=== PATIENT | female | born 1960 | race Caucasian/White ===

== ENCOUNTER 2023-01-24 14:37 | Emergency (ER) | payer MEDICARE, MEDICAID, SELFPAY ==
[2023-01-24 14:37] VITALS: BP 121/74; PULSE 91; RESP 16; TEMP 36.3; O2SAT 97; BMI 31.4
--- NOTE | 2023-01-24 15:07 | EX.ED.DYSGE1 ---
HPI <NICK Gilliam - Last Filed: 01/24/23 15:20> History of Present Illness Chief Complaint: Other, Pain/Inj Narrative Narrative: Patient presenting today due to rectal pain from an anal fissure that she was diagnosed with yesterday by her sewing machinist, Dr. Patel. She was prescribed a nitroglycerin cream and was told to perform daily sitz bath's. However, her pharmacy is out of this cream and she is having a hard time finding it. She reports that the pain is not being managed well with just the sitz bath's. She does report a history of constipation. PFSH <NICK Gilliam - Last Filed: 01/24/23 15:20> [facility] Medical History (Updated 01/24/23 @ 15:09 by Charlotte Campos) Anal fissure Home Medications lidocaine 5 % topical cream (RectiCare) 1 applic topical TID PRN pain #15 grams 01/24/23 [Rx Last Taken Unknown] Allergy/AdvReac Type Severity Reaction Status Date / Time hydrocodone Allergy RASH Verified 01/24/23 14:41 Sulfa (Sulfonamide Allergy UNSURE Verified 01/24/23 14:41 Antibiotics) naproxen AdvReac Nausea Verified 01/24/23 14:41 trazodone AdvReac PT UNSURE Verified 01/24/23 14:41 OF REACTION TRAMADOL AdvReac Nausea Uncoded 01/24/23 14:41 Social History Smoking Status: Current every day smoker tobacco type: cigarettes ROS <NICK Gilliam - Last Filed: 01/24/23 15:20> ROS ED Constitutional Constitutional ED: Denies chills or fever(s) Cardiovascular Cardiovascular: Denies chest pain Respiratory/Chest Respiratory/Chest: Denies cough or dyspnea Gastrointestinal Gastrointestinal: Denies abdominal pain, nausea or vomiting Musculoskeletal Musculoskeletal: Denies arthralgias or myalgias Neurologic Neurologic: Denies weakness Psychiatric Psychiatric: Denies anxiety, depression, suicidal ideation or suicidal thoughts EXAM <NICK Gilliam - Last Filed: 01/24/23 15:20> Physical Exam Const Vital Signs: 01/24/23 14:37 01/24/23 15:09 Temperature 97.4 F L Temperature Source Temporal Pulse Rate 91 Respiratory Rate 16 Respiratory Effort Normal Respiratory Pattern Normal Blood Pressure 121/74 H Blood Pressure Mean 89 Pulse Ox 97 Oxygen Delivery Method Room Air Positive well nourished, well developed and no apparent distress General Appearance ED: well developed HEENT Reports normocephalic and head/scalp atraumatic Mouth ED: Yes moist mucous membranes normal Eyes PERRL and EOMs intact bilaterally Neck full ROM and supple Chest Wall inspection of chest normal Resp normal respiratory effort and clear to auscultation bilaterally Cardio regular rate and regular rhythm GI soft to palpation, non-tender, non-distended and no masses GI Narrative: Rectal examination performed, normal sphincter tone, small non-thrombosed external hemorrhoid. No sign of perirectal abscess. Back/Spine normal ROM and normal to inspection Extremity normal to inspection and full ROM Neuro oriented x3, CN's II-XII intact bilaterally, moves all extremities, no focal motor deficits and no sensory deficits noted Sensorium / Orientation: awake and alert Psych mental status grossly normal and thought process normal Skin no rashes or lesions noted and no wounds <Glenroy Dumas MD - Last Filed: 01/24/23 18:20> Physical Exam Const Vital Signs: 01/24/23 14:37 01/24/23 15:09 Temperature 97.4 F L Temperature Source Temporal Pulse Rate 91 Respiratory Rate 16 Respiratory Effort Normal Respiratory Pattern Normal Blood Pressure 121/74 H Blood Pressure Mean 89 Pulse Ox 97 Oxygen Delivery Method Room Air [facility] <NICK Gilliam - Last Filed: 01/24/23 15:20> [facility] Narrative Medical decision making narrative: Patient presenting with a anal fissure that was diagnosed yesterday by her GI doctor, Dr. Patel. She reports that she has been unable to obtain the nitroglycerin cream that she was prescribed and is having a lot of pain. I did perform a rectal exam, but I did not see the anal fissure, I also did not see any evidence of perirectal abscess. She does have 1 small non-thrombosed hemorrhoid but this is not the source of her pain. I will give her a prescription for recticare. Encouraged her to continue using sitz bath's and to add more fiber to her diet. She is to follow-up with her GI doctor and will be discharged home in stable condition. She is comfortable with plan. <Glenroy Dumas MD - Last Filed: 01/24/23 18:20> [facility] Narrative Medical decision making narrative: Patient presenting with a anal fissure that was diagnosed yesterday by her GI doctor, Dr. Patel. She reports that she has been unable to obtain the nitroglycerin cream that she was prescribed and is having a lot of pain. I did perform a rectal exam, but I did not see the anal fissure, I also did not see any evidence of perirectal abscess. She does have 1 small non-thrombosed hemorrhoid but this is not the source of her pain. I will give her a prescription for recticare. Encouraged her to continue using sitz bath's and to add more fiber to her diet. She is to follow-up with her GI doctor and will be discharged home in stable condition. She is comfortable with plan. Dr. Dumas: I have personally performed a face to face assessment of the patient and have reviewed the AMILCAR Note. I performed a substantive portion of the visit including all aspects of the following. My douglas findings include: History is anal fissure pain. 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 Patel, had written for compound pharmaceutical to be placed rectally to help heal fissure and control pain. Unavailable at outpatient pharmacy. Patient complains of rectal pain. Exam is afebrile. Vital signs noted. Regular rate and rhythm. Lungs clear to auscultation bilaterally. Abdomen soft and nontender. Medical Decision Making: Lidocaine 4%/RectiCare. Follow-up gastroenterology. I do not feel that laboratory work is indicated, nor do I feel that imaging is indicated, and she does not require observation at this time. Other additions or changes: [None] Differential Diagnosis Differential Diagnosis: Not applicable Discharge Plan Triage Chief Complaint: Other, Pain/Inj ED Midlevel Provider: Hoa Guillen ED Provider: Glenroy Dumas Dx/Rx/DC Orders Clinical Impression: Rectal fissure Instructions: ED Understanding Anal Fissures Prescriptions: New lidocaine [RectiCare] 5 % cream 1 applic topical TID PRN (Reason: pain) Qty: 15 0RF Primary Care Provider: Care Physician,No Primary Referrals: Town Doctor,Out of [Non-Staff] - Activity Restrictions/Additional Instructions: Continue to take sitz bath's twice a day, follow-up with your GI doctor. Disposition Disposition: Home, Self Care Discharge Date/Time: 01/24/23 16:35
== END 2023-01-24 16:35 | disposition home or self-care (01) ==
LOC: ED 15:27
PROVIDERS: Emergency Provider Emergency Medicine; Visit Provider Emergency Medicine
DX: K60.2 Anal fissure, unspecified (principal); F17.210 Nicotine dependence, cigarettes, uncomplicated
CPT/HCPCS: 99282

== ENCOUNTER → 2024-04-20 | Outpatient (CLI) | payer MEDICARE, MEDICAID, SELFPAY ==
[2024-04-20 15:15] LABS: Absolute Lymphocyte Count 1.62 X10^3/uL (0.83-4.51); Absolute Neutrophil Count 15.8 X10^3/uL (2.0-7.7); Basophil# 0.04 X10^3/uL; Basophil% 0.2 % (0-1); Hematocrit 44.1 % (37-47); Hemoglobin 14.3 g/dL (12.0-15.0); Lymphocyte # 1.62 X10^3/ul (0.83-4.51); Lymphocyte % 8.8 % (19-41); Mean Corp Hgb Conc 32.4 g/dL (32-36); Mean Corpuscular Hgb 28.2 pg (27.0-32.0); Mean Platelet Vol. 10.4 fl (6.2-12.0); Monocyte# 0.76 X10^3/uL; Monocyte% 4.1 % (0-10); NRBC Flagged by Analyzer 0 % (0-5); Neutrophil # 15.84 X10^3/uL (2.7-7.7); Platelet Count 348 K/mm3 (150-450); RBC Distribution Width CV 14.1 % (11.6-14.6); RBC Distribution Width SD 44.7 fl (35.1-43.9); Red Blood Count 5.07 M/mm3 (4.2-5.4); White Blood Count 18.4 K/mm3 (4.4-11.0)
[2024-04-20 15:29] LABS: Vitamin D,25 Hydroxy 32.2 ng/mL
[2024-04-20 15:32] LABS: ALB/GLOB Ratio 1.1 RATIO (0.9-2.4); AST(SGOT) 18 U/L (15-37); Alanine Aminotransfer ALT/SGPT 37 U/L (13-56); Albumin, Serum 4.2 g/dL (3.2-5.0); Alkaline Phosphatase 66 U/L (45-117); Anion Gap 4 (5-15); BUN 28 mg/dL (7-18); BUN/Creat Ratio 27.7 RATIO (10-20); Calcium,Total 10.4 mg/dL (8.5-10.1); Chloride 104 mmol/L (98-107); Creatinine, Serum 1.01 mg/dL (0.55-1.02); EST Glomerular Filtration Rate 58 mL/min (>60); Est Glom Filt Rate - Afr Amer 71 mL/min (>60); Globulin 3.8 g/dL (2.2-4.2); Glucose 107 mg/dL (74-106); Potassium 4.4 mmol/L (3.5-5.1); Sodium Level 138 mmol/L (136-145)
== END | disposition home or self-care (01) ==
PROVIDERS: PCP Family Medicine; Referring Provider Family Medicine; Visit Provider Family Medicine
DX: K60.2 Anal fissure, unspecified (principal); E11.9 Type 2 diabetes mellitus without complications; M81.0 Age-related osteoporosis without current pathological fracture
CPT/HCPCS: 36415; 80053; 82306; 85025

== ENCOUNTER → 2024-04-27 | Outpatient (CLI) | payer MEDICARE, MEDICAID, SELFPAY ==
[2024-04-27 12:20] LABS: Absolute Lymphocyte Count 4.59 X10^3/uL (0.83-4.51); Basophil# 0.05 X10^3/uL; Basophil% 0.4 % (0-1); Eosinophil# 0.35 X10^3/uL; Eosinophils% 2.7 % (0-5); Hemoglobin 13.7 g/dL (12.0-15.0); Lymphocyte # 4.59 X10^3/ul (0.83-4.51); Lymphocyte % 35.4 % (19-41); Mean Corp Hgb Conc 32.6 g/dL (32-36); Mean Corpuscular Volume 85.9 fL (81-99); Mean Platelet Vol. 9.7 fl (6.2-12.0); Monocyte# 0.88 X10^3/uL; Monocyte% 6.8 % (0-10); NRBC Flagged by Analyzer 0 % (0-5); Neutrophil # 7.03 X10^3/uL (2.7-7.7); Neutrophil % 54.2 % (47-70); Platelet Count 325 K/mm3 (150-450); RBC Distribution Width CV 13.4 % (11.6-14.6); RBC Distribution Width SD 42.1 fl (35.1-43.9); Red Blood Count 4.89 M/mm3 (4.2-5.4)
== END | disposition home or self-care (01) ==
PROVIDERS: PCP Family Medicine; Referring Provider Family Medicine; Visit Provider Family Medicine
DX: D72.829 Elevated white blood cell count, unspecified (principal)
CPT/HCPCS: 36415; 85025

== ENCOUNTER 2024-08-25 13:30 | Outpatient (RCR) | payer MEDICARE, MEDICAID, SELFPAY ==
--- NOTE | 2024-07-15 17:01 | HP.PTEVAL ---
Patient's Visit Information Visit Information Visit Information: AURELIO MICHELLE is a 64 year old F referred to Physical Therapy by Dr. Chemo Varma DO with a diagnosis of UNILATERAL PRIMARY OSTEOARTHRITIS ,RIGHT KNEE. Date of Evaluation: 07/15/24 Physical Therapist: George Colunga, PT, Cert MDT, OCS Visit Plan Frequency: 2x /Week Duration: 6 Weeks Plan: CANDIDATE FOR TKA RIGHT KNEE PT INTERVENTIONS ROM/FLEXABILITY ,STRENGTHENING QUADS/HAMS/HIP ,FUNCTIONAL STRENGTHENING AND NUSTEP Subjective Subjective: This 64 y/o female presents to physical therapy with right knee pain due to OA . Patient has had left knee pain many years . Patient seen DR Varma recommended PT and and recommend and viscosupplementation injections. Patient has x-rays showed Severe degenerative changes Tricompartmental narrowing . Patient has had cortisone injection at [facility] . Patient DR recommend TKA . Patient pain located global knee . Patient symptoms described as sore sharp pain. Pain can affects sleeping. Patient aggravating stairs ,extended walking and unable to squat and kneel. Alleviating factors nothing . Patient c/o paresthesia in knee. Patient condition affects QOL and function/gait. Patient goals to decrease pain VOCATION: retired SOCIAL: seperated Pain Left Knee: Pain Intensity (Out of 10): 7 Pain Intensity Range: 10 Comment: rest ,increases to 10/10 with walking Objective Objective: POSTURE: mild forward posture GAIT : reciprocal pattern antalgic gait Right side PALAPTION: tender medial /lateral joint line AROM: supine knee flexion 0-125 degrees supine FLEXIBILITY: hamstrings min tight MMT: ( peak force) right quads 18.8 ,hamstrings 14.2 ,hip flexion 23.1 ,hip abduction 16.8 ,ankle STAIRS: one step at a time Balance/Special Test Scores Lower Extremity Functional Score: 26 Goals Goal 1:: Patient to be I with HEP Goal Time Frame: 4-6 Weeks Goal 2:: Patient to improve peak force quads/hams/hip by 5-10# to improve gait Goal Time Frame: 4-6 Weeks Goal 3:: Patient to improve AROM supine knee flexion by 5 -10 degrees to improve stairs Goal Time Frame: 4-6 Weeks Goal 4:: Patient to demonstrate 50% improvement with less pain and improve function Goal Time Frame: 4-6 Weeks Goal 5:: Patient to improve LFES score by 5 points to improve QOL and function Goal Time Frame: 4-6 Weeks Rehabilitation Potential Physical Therapy Diagnosis: This patient has has severe DJD with pain ,decrease ROM ,weakness impairs gait and stairs this benefit from skilled PT Rehabilitation Potential: Good Anticipated Interventions Patient/Client Instruction: Educate patient on: Condition and Plan of Care For the Purpose of:: To decrease pain, To increase ROM, To improve muscle performance and motor function, To improve ability to perform ADL's, To increase tolerance to activity/condition/position, To improve ability of physical actions for home/community/work/leisure, To improve health of tissue, To decrease soft tissue restriction, To increase flexibility/ROM and To reduce risk of recurrence Therapeutic Exercise to Include: Strength training, Flexibilty training, Passive ROM and Active ROM Comment: QUADS/HAMS/HIP For the Purpose of:: To decrease pain, To increase ROM, To improve muscle performance and motor function, To improve ability to perform ADL's, To increase tolerance to activity/condition/position, To improve ability of physical actions for home/community/work/leisure, To improve health of tissue, To decrease soft tissue restriction, To increase flexibility/ROM, To improve endurance, To improve balance, To reduce risk of recurrence and To improve tolerance to ADL's TENS: Yes IF ES: Yes Cryotherapy (ice pack, ice massage): Yes Thermo therapy (hot pack): Yes Ultrasound (thermal/non thermal): Yes For the Purpose of:: To decrease pain, To increase ROM, To improve nutrient delivery to tissue, To increase oxygenation perfusion, To improve health of tissue and To decrease soft tissue restriction Text: Thank you for the opportunity to evaluate your patient. For Medicare and Medicare HMO plans, please review the plan of care and approve it. It will need to be FAXED BACK to us at [phone] for Medicare purposes. For Medicare only, by signing this I certify the plan of care. Please let me know if there are questions or concerns regarding this plan of care. Physician Signature: Date:
--- NOTE | 2024-08-04 14:48 | HP.PTREVAL ---
Re-Evaluation Intro: Dr. Chemo Varma, DO, It has been my pleasure to treat AURELIO MICHELLE over the last 6 visits for UNILATERAL PRIMARY OSTEOARTHRITIS ,RIGHT KNEE. Please see the progress note below for an update on the physical therapy plan of care! Subjective Subjective: Patient reports edema today . Patient has more snapping today Objective Objective/Function: Patient will benefit from skilled PT to decrease pain with patient making progress with increasing strength thus will benefit from skilled PT POSTURE: mild forward posture EDEMA: effusion medial/knee GAIT : reciprocal pattern antalgic gait Right side PALAPTION: tender medial /lateral joint line AROM: supine knee flexion 0-125 degrees supine FLEXIBILITY: hamstrings min tight MMT: ( peak force) right quads 35.7 ,hamstrings 26.8 ,hip flexion 25.1 ,hip abduction 19.8 ,ankle STAIRS: one step at a time Plan Plan Plan: Requesting 8 more visits CANDIDATE FOR RIGHT TKA PT INTERVENTIONS: ROM/FLEXIBILITY, STRENGTHENING QUADS/HAMS/HIP, FUNCTIONAL STRENGTHENING AND NUSTEP ADD ESTIM/CP Balance/Gait/Functional tests Balance/Special Test Scores Lower Extremity Functional Score: 32 Goals Goals Goal 1:: Patient to be I with HEP Goal Time Frame: 4-6 Weeks Goal Progress: Progressing Goal 2:: Patient to improve peak force quads/hams/hip by 5-10# to improve gait( new goal) Goal Time Frame: 4-6 Weeks Goal 3:: Patient to improve AROM supine knee flexion by 5 -10 degrees to improve stairs Goal Time Frame: 4-6 Weeks Goal Progress: Progressing Goal 4:: Patient to demonstrate 50% improvement with less pain and improve function Goal Time Frame: 4-6 Weeks Goal Progress: Progressing Goal 5:: Patient to improve LFES score by 5 points to improve QOL and function( new goal) Goal Time Frame: 4-6 Weeks Anticipated Interventions Anticipated Interventions Patient/Client Instruction: Educate patient on: Condition and Plan of Care For the Purpose of:: To decrease pain, To increase ROM, To improve muscle performance and motor function, To improve ability to perform ADL's, To increase tolerance to activity/condition/position, To improve ability of physical actions for home/community/work/leisure, To improve health of tissue, To decrease soft tissue restriction, To increase flexibility/ROM and To reduce risk of recurrence Therapeutic Exercise to Include: Strength training, Flexibilty training, Passive ROM and Active ROM Comment: QUADS/HAMS/HIP For the Purpose of:: To decrease pain, To increase ROM, To improve muscle performance and motor function, To improve ability to perform ADL's, To increase tolerance to activity/condition/position, To improve ability of physical actions for home/community/work/leisure, To improve health of tissue, To decrease soft tissue restriction, To increase flexibility/ROM, To improve endurance, To improve balance, To reduce risk of recurrence and To improve tolerance to ADL's TENS: Yes IF ES: Yes Cryotherapy (ice pack, ice massage): Yes Thermo therapy (hot pack): Yes Ultrasound (thermal/non thermal): Yes For the Purpose of:: To decrease pain, To increase ROM, To improve nutrient delivery to tissue, To increase oxygenation perfusion, To improve health of tissue and To decrease soft tissue restriction Re-Evaluation Ending Re-evaluation ending: Please do not hesitate to contact me at [phone] by phone or if you have questions or concerns regarding this new plan of care! Sincerely, George Colunga, PT, Cert MDT, OCS
--- NOTE | 2024-08-25 14:15 | HP.PTDCSUM ---
Discharge Summary D/C summary: It has been my pleasure to treat AURELIO MICHELLE referred by Dr. Chemo Varma DO, with the diagnosis of UNILATERAL PRIMARY OSTEOARTHRITIS ,RIGHT KNEE for a total of 10 visit(s). Discharge Date: 08/25/24 Please see the following information for a summary of their discharge status. Subjective Subjective: Patient had gel injections Overall better cont to have pain Pain Left Knee: Pain Intensity (Out of 10): 0 Right Knee: Pain Intensity (Out of 10): 3 Overall Improvement % Improvement: 50 Objective Objective/Function: POSTURE: mild forward posture EDEMA: effusion medial/knee GAIT : reciprocal pattern slight antalgic gait PALAPTION: tender medial /lateral joint line AROM: supine knee flexion 0-125 degrees supine FLEXIBILITY: hamstrings min tight MMT: ( peak force) right quads 35.7 ,hamstrings 26.8 ,hip flexion 25.1 ,hip abduction 19.8 ,ankle STAIRS: one step at a time Goals Goal 1:: Patient to be I with HEP Goal Progress: Goal Met Goal 2:: Patient to improve peak force quads/hams/hip by 5-10# to improve gait( new goal) Goal Progress: Goal Met Goal 3:: Patient to improve AROM supine knee flexion by 5 -10 degrees to improve stairs Goal Progress: Progressing Goal 4:: Patient to demonstrate 50% improvement with less pain and improve function Goal Progress: Goal Met Goal 5:: Patient to improve LFES score by 5 points to improve QOL and function( new goal) Goal Progress: Goal Met Plan Plan: D/C D/C Information Discharge Comments: HEP AND MIN VISITS PER INSURANCE d/c sentence: If there are questions or concerns regarding this patient's physical therapy, please feel free to call me at [phone]. Thank you for the referral of this patient. Sincerely, George Colunga, PT, Cert MDT, OCS Balance/Gait/Functional tests Balance/Special Test Scores Lower Extremity Functional Score: 50 Improvement % Improvement: 50
== END 2024-08-25 19:00 | disposition home or self-care (01) ==
LOC: PT 13:30
PROVIDERS: PCP Family Medicine; Referring Provider Orthopaedic Surgery; Visit Provider Orthopaedic Surgery
DX: M17.11 Unilateral primary osteoarthritis, right knee (principal)
CPT/HCPCS: 97110; 97162; 97530

== ENCOUNTER 2024-09-20 14:40 | Inpatient (IN) | payer MEDICARE, MEDICAID, SELFPAY ==
[2024-09-20] VITALS (9 sets, daily range): BP systolic 98–124; BP diastolic 57–67; PULSE 72–93; RESP 15–20; TEMP 35.8–36.9; O2SAT 93–96; BMI 32.8
--- NOTE | 2024-09-20 16:01 | EX.ED.DYSGE1 ---
HPI History of Present Illness Chief Complaint: Constipation Detail of Chief Complaint: Bilateral lower quadrant pain after having diarrhea on September 17 Informant: patient Onset/Context/Timing Onset: Days Context: Sudden Onset Timing: Continuous Quality: Pain Location: Right and left lower quadrant Current Severity: Mild Maximum Severity: Moderate (Pushing on it) Worsened by: Patient states nothing however when she pushed on it she states it is worse Relieved by: Nothing Associated Symptoms Associated Symptoms: Nausea and HPI narrative Narrative Narrative: Patient is a 64-year-old woman. She is not a good informant. She has history of hypertension, diabetes, constipation and COPD. She denies history of diverticulosis or diverticulitis. She is status post x 2. She states she has never had a partial bowel obstruction. She endorses nausea without vomiting. She had 1 loose watery stool after she took medicine on Thursday to help her go because she was constipated. She did not notice blood or mucus. She states she had surgery due to rectal wall muscle weakness. That was done at an outside facility. Patient reports decreased urine output. She denies history of kidney disease. Patient denies fever, chills night sweats. Patient denies cardiac or respiratory symptoms. Patient denies dysuria, frequency, urgency or hematuria. Patient does not feel she has a rectal impaction. She has not had a bowel movement since Thursday. She is still passing gas. She states not as much is normal. Prior similar symptoms: No Recent Illness/Hospitalization: No [facility] Medical History Groin cyst COPD (chronic obstructive pulmonary disease) Depression Cervical cancer Skin cancer IBS (irritable bowel syndrome) Hyperlipemia Hypertension Diabetes Carpal tunnel syndrome Cataracts, bilateral Arthritis Glaucoma Anal fissure Home Medications ?Medication ?Instructions ?Recorded ?Last Taken ?Type fluticasone fur. 100 mcg-umeclid 1 ea inhalation QDAY #28 ea 03/05/24 Unknown Rx 62.5 mcg-vilant 25 mcg inhalat.powder (Trelegy Ellipta) bumetanide 1 mg tablet 1 mg PO QDAY #90 tabs 03/28/24 09/20/24 Rx cholecalciferol (vitamin D3) 25 25 mcg PO QDAY #90 caps 03/28/24 09/20/24 Rx mcg (1,000 unit) capsule (Vitamin D3) esomeprazole magnesium 40 mg 40 mg PO QDAY #90 caps 03/28/24 09/20/24 Rx capsule,delayed release metoprolol succinate 25 mg 25 mg PO QDAY #90 tabs 03/28/24 09/20/24 Rx tablet,extended release 24 hr montelukast 10 mg tablet 10 mg PO QDAY #90 tabs 03/28/24 09/20/24 Rx rosuvastatin 10 mg tablet 10 mg PO QHS #90 tabs 03/28/24 Unknown Rx valsartan 80 mg tablet 80 mg PO QDAY #90 tabs 03/28/24 09/20/24 Rx sennosides 8.6 mg-docusate sodium 1 tab-cap PO QHS #30 tabs 06/28/24 Unknown Rx 50 mg tablet semaglutide 1 mg/dose (4 mg/3 mL) 1 mg (0.75 mL) subcut QWEEK #3 mL 07/20/24 09/14/24 Rx subcutaneous pen injector indomethacin 25 mg capsule 25 mg PO BID #60 caps 07/26/24 09/20/24 Rx albuterol sulfate 90 mcg/actuation 2 puff inhalation Q6H PRN 08/16/24 Unknown Rx aerosol inhaler shortness of breath or wheezing #8.5 grams hydroxyzine HCl 50 mg tablet 100 mg (2 x 50 mg) PO BID #90 08/16/24 09/20/24 Rx TABLETS Allergy/AdvReac Type Severity Reaction Status Date / Time hydrocodone Allergy RASH Verified 09/20/24 14:41 Sulfa (Sulfonamide Allergy UNSURE Verified 09/20/24 14:41 Antibiotics) meloxicam AdvReac Severe facial Verified 09/20/24 14:41 swellling naproxen AdvReac Nausea Verified 09/20/24 14:41 tramadol AdvReac Nausea Verified 09/20/24 16:02 trazodone AdvReac PT UNSURE Verified 09/20/24 14:41 OF REACTION Family History Sister Bleeding disorder Diabetes Epilepsy Father Heart disease Hypertension Bowel disease Mother Heart disease Hyperlipemia Surgical History History of rectal surgery H/O: section S/P rotator cuff surgery Social History adopted: No household members: none number of children: 3 current occupational status: retired pets and animals: Yes (2) pets and animals: fish sexually active: No Smoking Status: Current every day smoker tobacco type: cigarettes Tobacco: How many years used: 45 alcohol intake: never substance use type: does not use caffeine: Yes (2) Type: coffee what type of physical activity do you participate in: none do you feel safe at home: Yes ROS ROS ED Constitutional Constitutional ED: Denies chills, fever(s), subjective or sweats Eyes Eyes: Denies blurry vision or change in vision ENT ENT ED: Denies rhinorrhea or sore throat Cardiovascular Cardiovascular: Denies chest pain or palpitations Respiratory/Chest Respiratory/Chest: Denies cough, dyspnea or dyspnea on exertion Gastrointestinal Gastrointestinal: Reports abdominal pain, constipation and nausea; Denies diarrhea, melena or vomiting Genitourinary Genitourinary ED: Denies dysuria, hematuria or urinary frequency Musculoskeletal Musculoskeletal: Denies arthralgias, back pain or myalgias Integumentary Denies rash Neurologic Neurologic: Denies weakness Psychiatric Psychiatric: Denies anxiety or depression Hematologic/Lymphatic Hematologic/Lymphatic: Reports systems reviewed and no addt'l complaints, except as documented EXAM Physical Exam Const Vital Signs: 09/20/24 14:41 09/20/24 16:40 09/20/24 18:00 Temperature 96.5 F L Temperature Source Temporal Pulse Rate 93 72 76 Respiratory Rate 18 18 15 Blood Pressure 115/57 L 113/62 100/66 Blood Pressure Mean 76 79 77 Pulse Ox 95 96 94 Oxygen Delivery Method Room Air Room Air Room Air 09/20/24 20:00 09/20/24 21:49 09/20/24 21:51 Temperature 98.2 F 98.2 F Temperature Source Oral Pulse Rate 72 78 78 Respiratory Rate 18 18 16 Blood Pressure 106/67 124/63 H 124/63 H Blood Pressure Mean 80 83 83 Pulse Ox 96 94 95 Oxygen Delivery Method Room Air Room Air Positive well nourished and well developed Constitutional Narrative: BMI is 32.8. General Appearance ED: well developed, NAD and pallor; Negative for cyanotic or diaphoretic HEENT Reports dry mucous membranes HEENT Narrative: Head is atraumatic normocephalic. Ears normal. Nares patent. Posterior pharynx is normal. Mouth ED: Yes dry mucous membranes Mouth: dry mucous membranes Eyes PERRL and EOMs intact bilaterally General Eye ED: Negative for pale conjunctiva or scleral icterus Neck no lymphadenopathy, supple and no JVD Resp normal respiratory effort and clear to auscultation bilaterally Cardio regular rate, regular rhythm, S1 normal heart sound, S2 normal heart sound and no murmurs GI no masses; Negative for normal to inspection, nondistended, normoactive bowel sounds, non-tender, non-distended or hepatosplenomegaly GI Narrative: Patient's bowel sounds are diminished. She is tympanitic to percussion. Inspection: abdominal distention Auscultation: hypoactive bowel sounds Palpation: soft, tender LLQ, RLQ and LUQ and guarding LLQ and RLQ; Negative for splenomegaly, mass or rebound tenderness present Back/Spine no CVA tenderness Extremity normal to inspection General Extremety ED: Negative for edema or tenderness General Extremity: Negative for edema Neuro oriented x3, CN's II-XII intact bilaterally and no sensory deficits noted Sensorium / Orientation: alert Psych mental status grossly normal Skin no rashes or lesions noted, no wounds and skin turgor normal General Skin Exam: elasticity normal and pallor; Negative for jaundice MDM MDM MDM Narrative Medical decision making narrative: Patient is distended tympanitic with guarding right and left lower quadrant. This may represent atypical appendicitis, diverticulitis, malignancy with perforation or early partial small bowel obstruction. Will obtain CT of the abdomen pelvis IV contrast if renal function is normal. Since she is diabetic comprehensive metabolic panel was obtained to assess glucose, CO2 anion gap electrolytes and because of the left upper quadrant will also evaluate liver enzymes and lipase. Since she has no urinary symptoms a UA was not obtained. CBC to assess white count differential. History & Record Review Additional record(s) reviewed:: Prior outpatient record (Orthopedic office visit on August 08 for degenerative disc disease of the knee. August 03 external communication for COPD. IM office visit, Dr. Jaret Fluler for COPD.), Prior ED visit (Most recent ER visit was January 2023 for rectal fissure.) and Prior labs Lab Data Attestation: I reviewed the patient's lab results. Lab results narrative: White count is elevated 22.9 thousand with shift. H&H is normal. Comprehensive metabolic panel reveals mild renal insufficiency. Lactate is normal. Labs: Laboratory Results - last 24 hr 09/20/24 16:07 WBC 22.9 H RBC 4.76 Hgb 14.2 Hct 40.6 MCV 85.3 MCH 29.8 MCHC 35.0 RDW Std Deviation 44.5 H RDW Coeff of Jose Luis 14.3 Plt Count 271 MPV 9.6 Immature Gran % (Auto) 0.600 Neut % (Auto) 79.7 H Lymph % (Auto) 13.9 L [place] % (Auto) 4.7 Eos % (Auto) 0.7 Baso % (Auto) 0.4 Absolute Neuts (auto) 18.2 H Absolute Lymphs (auto) 3.19 Nucleated RBC % 0 Sodium 134 Potassium 4.0 Chloride 97 L Carbon Dioxide 26.1 Anion Gap 11 BUN 15 Creatinine 1.04 Estim Creat Clear Calc 56.68 Est GFR (MDRD) Non-Af 59 L BUN/Creatinine Ratio 14.1 Glucose 109 H Lactic Acid 1.3 Calcium 9.6 Total Bilirubin 0.67 AST 17 ALT 18 Alkaline Phosphatase 68 Total Protein 7.0 Albumin 3.9 Globulin 3.1 Albumin/Globulin Ratio 1.3 Radiography Diagnostic Testing: Clinical Impression(s) from Imaging Studies Abdomen/Pelvis CT 09/20/24 17:15 IMPRESSION: Sigmoid colon diverticulitis. Associated sigmoid colon wall abscess. Additional abscess within the pelvis abutting the undersurface of the uterus. Reading Location: [place] [id number] CT was reviewed. There is inflammatory changes. There is evidence of diverticulosis probably diverticulitis. Radiologist also noted a sigmoid colon wall abscess as well as an additional abscess in the pelvis abutting the uterus. Management Discussion w/another healthcare provider: Hospitalist (Spoke with Dr. Evans Chacon. He requested eye contact surgery because of his opinion this is a surgical problem.) and [employer] (Case was discussed with surgeon, Dr. Enrique Peña. Agrees with antibiotic and treatment as initially medical. He will gladly see patient in the morning.) Treatment and Re-Evaluation :: Hospitalist was paged for admission. She received IV antibiotics. Patient was informed of results. Comments:: Patient developed an anaphylactic reaction to Zosyn. She was treated with epinephrine, diphenhydramine and IV Pepcid. The Zosyn was stopped. She will receive clindamycin and metronidazole. Patient has facial swelling, generalized erythematous pruritic rash, wheezing. Dr. Chacon was made aware of patient's allergic reaction. He requested for me to admit patient to ICU. Critical Care Time Critical Care Time: Yes Critical care time (excluding procedures): 30-74 minutes (31), Including time spent: (History, physical, documentation, independent interpretation of laboratory results and treatment for acute diverticulitis with abscess and anaphylactic reaction), Discussing w/Patient &/or Family/Residential Care Officer, Discussing w/Consultants (General surgeon on-call, Dr. Enrique Peña), Arranging Admission or Transfer (Dr. Chacon) and Performing Direct Patient Care at Bedside (At bedside for anaphylaxis. Since she is also wheezing will treat with albuterol) Discharge Plan Dx/Rx/DC Orders Clinical Impression: Abscess of sigmoid colon due to diverticulitis, Abscess of pelvis, Leukocytosis, Renal insufficiency, Anaphylactic reaction due to adverse effect of correct drug or medicament properly administered, initial encounter Disposition Disposition: Acute Care Hospital [facility]
[2024-09-20] MEDS: Ondansetron 4 MG/2 ML Vial IV (16:09)
[2024-09-20] MEDS: 0.9% Normal Saline (1000mL) 1,000 ML 1000 ML IV (16:09)
[2024-09-20 16:30] LABS: Absolute Lymphocyte Count 3.19 X10^3/uL (0.83-4.51); Absolute Neutrophil Count 18.2 X10^3/uL (2.0-7.7); Basophil# 0.09 X10^3/uL; Basophil% 0.4 % (0-1); Eosinophil# 0.15 X10^3/uL; Eosinophils% 0.7 % (0-5); Hematocrit 40.6 % (37-47); Hemoglobin 14.2 g/dL (12.0-15.0); Lymphocyte # 3.19 X10^3/ul (0.83-4.51); Lymphocyte % 13.9 % (19-41); Mean Corpuscular Hgb 29.8 pg (27.0-32.0); Mean Corpuscular Volume 85.3 fL (81-99); Mean Platelet Vol. 9.6 fl (6.2-12.0); Monocyte# 1.07 X10^3/uL; Monocyte% 4.7 % (0-10); NRBC Flagged by Analyzer 0 % (0-5); Neutrophil # 18.24 X10^3/uL (2.7-7.7); Neutrophil % 79.7 % (47-70); Platelet Count 271 K/mm3 (150-450); RBC Distribution Width CV 14.3 % (11.6-14.6); RBC Distribution Width SD 44.5 fl (35.1-43.9); Red Blood Count 4.76 M/mm3 (4.2-5.4); White Blood Count 22.9 K/mm3 (4.4-11.0)
[2024-09-20 17:12] LABS: ALB/GLOB Ratio 1.3 RATIO (0.9-2.4); AST(SGOT) 17 U/L (<=31); Alanine Aminotransfer ALT/SGPT 18 U/L (<=34); Albumin, Serum 3.9 g/dL (3.4-4.8); Alkaline Phosphatase 68 U/L (35-104); Anion Gap 11 (5-15); BUN 15 mg/dL (4-19); BUN/Creat Ratio 14.1 RATIO (10-20); Calcium,Total 9.6 mg/dL (7.6-11.0); Carbon Dioxide 26.1 mmol/L (21.0-32.0); Chloride 97 mmol/L (98-108); Creatinine, Serum 1.04 mg/dL (0.70-1.20); EST Glomerular Filtration Rate 59 (>60); Estimated Creatinine Clearance 56.68 ml/min (50-250); Globulin 3.1 g/dL (2.2-4.2); Glucose 109 mg/dL (70-99); Lactic Acid 1.3 mmol/L (0.0-2.0); Sodium Level 134 mmol/L (133-145); Total Bilirubin 0.67 mg/dL (0.00-1.30)
--- NOTE | 2024-09-20 17:15 | CT_ITS ---
PROCEDURE: ABDOMEN/PELVIS W IV CONT ONLY 09/20/2024 REASON FOR EXAM: BILATERAL LOWER QUADRANT ABDOMINAL PAIN WITH GUARD TECHNIQUE: ABDOMEN/PELVIS W IV CONT ONLY. Coronal and Sagittal reconstruction series were provided. ORAL CONTRAST TYPE: None. AMOUNT: mL CONTRAST: Isovue 370 VOLUME: 68 mL One or more dose reduction techniques were used (e.g., Automated exposure control, adjustment of the mA and/or kV according to patient size, use of iterative reconstruction technique. RADIATION DOSE SUMMARY: CTDlvol: 9.97+ 20.41 mGy DLP: 1065.41 mGycm COMPARISON: None. FINDINGS: The peripheral soft tissues are unremarkable. Degenerative changes of the spine. Mild atherosclerosis. Normal caliber abdominal aorta. No suspicious lymphadenopathy. Hypodense liver suspicious for steatosis. The gallbladder is unremarkable. The pancreas is unremarkable. The spleen and adrenals are unremarkable. Bilateral kidney subcentimeter hypodense lesions that are too small to characterize. No hydroureteronephrosis. The urinary bladder is unremarkable. Uterine calcifications which may represent underlying fibroids. Sigmoid colon wall thickening in the region of diverticuli with adjacent inflammatory changes. There is an associated 28 x 9 mm sigmoid colon wall abscess (coronal image 71 of 147). Abutting the undersurface of the uterus there is an additional 38 x 16 mm peripherally enhancing fluid collection with internal flecks of air likely representing an abscess. CT/Abdomen/Pelvis W IV Cont ONLY IMPRESSION: Sigmoid colon diverticulitis. Associated sigmoid colon wall abscess. Additional abscess within the pelvis abutting the undersurface of the uterus. Reading Location: [id number]
[2024-09-20] MEDS: Piperacil/Tazobactam 4.5 GM in 0.9% Normal Saline (100mL MB+) 100 ML IV (21:34)
[2024-09-20] MEDS: DiphenhydrAMINE 50 MG/ML Syringe IV (22:10)
[2024-09-20] MEDS: Albuterol 2.5 MG/3 ML VIAL.NEB. INHALATION (22:12)
[2024-09-20] MEDS: Epi Pen (EQUIV) 0.3 MG Syringe IM (22:16)
--- NOTE | 2024-09-20 22:25 | ED.RN ---
at 2200 patient's family member came out of the patient's room and stated hey i think she's having an alleric reaction. Urticaria and itching noted by this RN. Physician notified immediately and orders for albuterol, Epi, Benadryl and Pepcid obtained and administered.
--- NOTE | 2024-09-20 22:37 | PCM.HP.STD ---
[facility] - General General Date of Admission: 09/20/24 Date of Service: 09/20/24 Chief Complaint: Abdominal Pain and Constipation. HPI Narrative AURELIO BHAKTA, is a 64 F with a past medical history of essential hypertension; on metoprolol, valsartan and bumetanide, hyperlipidemia; on rosuvastatin, obesity; with BMI of 32.8 this admission on semaglutide, history of DM-2; currently untreated, history of tobacco abuse; with subsequent COPD, history of anal fissure, history of rectal surgery; due to rectal wall muscle weakness done at outside facility by Dr. Grissom (2022), history of rotator cuff surgery, history of cervical cancer, history of x 2, history of skin cancer, history of glaucoma, history of depression; currently not on treatment and OA; primarily of the knee who presents to [facility] ER complaining of abdominal pain and constipation. Ms. Bhakta reports her symptoms began approximately 3 days prior to admission on Tuesday, September 17, 2024 with bilateral lower quadrant pain after having a bout of nonbloody diarrhea. She describes the pain as sudden in onset and continuous and mainly in her right and left lower quadrants with pain made more severe with palpation and nothing seeming to make it better. She states she had 1 loose watery stool after she took medicine on Thursday to help her go because she was constipated. She did not notice obvious blood or mucus. She does admit to decreased urinary output with no bowel movement since Thursday but she is still passing gas. She denies a history of bowel obstruction. She states she does not feel she has a rectal impaction. She also denies associated fever, chills, night sweats, chest pain, shortness of breath, dysuria, hematuria, urinary frequency, headache or rash. In the ER she was noted to have a CT scan of the abdomen and pelvis with IV contrast that revealed sigmoid colon diverticulitis with associated sigmoid colon wall abscess and additional abscess within the pelvis abutting the undersurface of the uterus complicated by laboratory evidence of Leukocytosis of 22.9K present on admission with ER physician initially recommended to contact surgical service for the admission of this patient. Unfortunately, shortly after receiving piperacillin-tazobactam in ER patient developed a suspected Anaphylactic reaction to this agent causing her to be subsequently treated with IM epinephrine, IV famotidine and IV diphenhydramine. Her antibiotic regimen was then changed to IV metronidazole and IV clindamycin as per ER physician. I personally spoke with the general surgeon monorail car operator about the case due to her recent complications with plan for formal evaluation in the a.m. which is appreciated in advance. She was then admitted to the ICU for ongoing care for stay that is expected to extend beyond 2 midnights. [facility] Medical History Groin cyst COPD (chronic obstructive pulmonary disease) Depression Cervical cancer Skin cancer IBS (irritable bowel syndrome) Hyperlipemia Hypertension Diabetes Carpal tunnel syndrome Cataracts, bilateral Arthritis Glaucoma Anal fissure Home Medications ?Medication ?Instructions ?Recorded ?Last Taken ?Type fluticasone fur. 100 mcg-umeclid 1 ea inhalation QDAY #28 ea 03/05/24 Unknown Rx 62.5 mcg-vilant 25 mcg inhalat.powder (Trelegy Ellipta) bumetanide 1 mg tablet 1 mg PO QDAY #90 tabs 03/28/24 09/20/24 Rx cholecalciferol (vitamin D3) 25 25 mcg PO QDAY #90 caps 03/28/24 09/20/24 Rx mcg (1,000 unit) capsule (Vitamin D3) esomeprazole magnesium 40 mg 40 mg PO QDAY #90 caps 03/28/24 09/20/24 Rx capsule,delayed release metoprolol succinate 25 mg 25 mg PO QDAY #90 tabs 03/28/24 09/20/24 Rx tablet,extended release 24 hr montelukast 10 mg tablet 10 mg PO QDAY #90 tabs 03/28/24 09/20/24 Rx rosuvastatin 10 mg tablet 10 mg PO QHS #90 tabs 03/28/24 Unknown Rx valsartan 80 mg tablet 80 mg PO QDAY #90 tabs 03/28/24 09/20/24 Rx sennosides 8.6 mg-docusate sodium 1 tab-cap PO QHS #30 tabs 06/28/24 Unknown Rx 50 mg tablet semaglutide 1 mg/dose (4 mg/3 mL) 1 mg (0.75 mL) subcut QWEEK #3 mL 07/20/24 09/14/24 Rx subcutaneous pen injector indomethacin 25 mg capsule 25 mg PO BID #60 caps 07/26/24 09/20/24 Rx albuterol sulfate 90 mcg/actuation 2 puff inhalation Q6H PRN 08/16/24 Unknown Rx aerosol inhaler shortness of breath or wheezing #8.5 grams hydroxyzine HCl 50 mg tablet 100 mg (2 x 50 mg) PO BID #90 08/16/24 09/20/24 Rx TABLETS Allergy/AdvReac Type Severity Reaction Status Date / Time hydrocodone Allergy RASH Verified 09/20/24 14:41 piperacillin (From Zosyn) Allergy Hives Verified 09/20/24 22:20 Sulfa (Sulfonamide Allergy UNSURE Verified 09/20/24 14:41 Antibiotics) tazobactam (From Zosyn) Allergy Hives Verified 09/20/24 22:20 meloxicam AdvReac Severe facial Verified 09/20/24 14:41 swellling naproxen AdvReac Nausea Verified 09/20/24 14:41 tramadol AdvReac Nausea Verified 09/20/24 16:02 trazodone AdvReac PT UNSURE Verified 09/20/24 14:41 OF REACTION Family History Sister Bleeding disorder Diabetes Epilepsy Father Heart disease Hypertension Bowel disease Mother Heart disease Hyperlipemia Surgical History History of rectal surgery H/O: section S/P rotator cuff surgery Social History adopted: No household members: none number of children: 3 current occupational status: retired pets and animals: Yes (2) pets and animals: fish sexually active: No Smoking Status: Current every day smoker tobacco type: cigarettes Tobacco: How many years used: 45 alcohol intake: never substance use type: does not use caffeine: Yes (2) Type: coffee what type of physical activity do you participate in: none do you feel safe at home: Yes ROS ROS Narrative Review of Systems: Constitutional: Patient denies fever or chills. Eyes: Patient denies changes in vision or discharge from eyes. ENT: Patient denies runny nose, sore throat or ear pain. Resp: Patient developed shortness of breath and wheezing after anaphylactic reaction. CV: Patient denies chest pain, palpitations, heart racing or lower extremity edema. GI: Patient admits to abdominal pain primarily in the lower quadrants with constipation as per HPI. : Patient denies dysuria, hematuria or urinary frequency. MSK: Patient denies arthralgias or myalgias. Skin: Patient developed severe rash and facial swelling due to anaphylaxis after piperacillin-tazobactam as per HPI. Psych: Patient denies symptoms of uncontrolled depression or anxiety. Neuro: Patient denies headache, paresthesias or focal neurologic deficits. Allergy: Patient admits to anaphylactic reaction with facial swelling, wheezing and rash as per HPI. Hematology: Patient denies easy bleeding or easy bruisability. Endocrinology: Patient denies polyuria, polydipsia, polyphagia or heat/cold intolerance. 14 point ROS otherwise negative save for positives noted above in HPI. Vital Signs Vital Signs Vital Signs: 09/20/24 14:41 09/20/24 16:40 09/20/24 18:00 Temperature 96.5 F L Temperature Source Temporal Pulse Rate 93 72 76 Respiratory Rate 18 18 15 Respiratory Pattern Blood Pressure 115/57 L 113/62 100/66 Blood Pressure Mean 76 79 77 Pulse Ox 95 96 94 Oxygen Delivery Method Room Air Room Air Room Air 09/20/24 20:00 09/20/24 21:49 09/20/24 21:51 Temperature 98.2 F 98.2 F Temperature Source Oral Pulse Rate 72 78 78 Respiratory Rate 18 18 16 Respiratory Pattern Blood Pressure 106/67 124/63 H 124/63 H Blood Pressure Mean 80 83 83 Pulse Ox 96 94 95 Oxygen Delivery Method Room Air Room Air 09/20/24 22:12 Temperature Temperature Source Pulse Rate 78 Respiratory Rate 20 H Respiratory Pattern Normal Blood Pressure Blood Pressure Mean Pulse Ox Oxygen Delivery Method Weight Weight: 191 lb Body Mass Index (BMI) 32.8 Physical Exam Const alert, oriented x3 and no apparent distress Constitutional Narrative: Obese. General Appearance: cooperative HEENT normocephalic, head/scalp atraumatic, hearing grossly normal bilaterally and moist oral mucous membranes Eyes PERRL and EOMs intact bilaterally Neck no lymphadenopathy and supple Resp normal respiratory effort, no retractions, no use of accessory muscles and clear to auscultation bilaterally Cardio regular rate and regular rhythm GI GI Narrative: Patient has a soft abdomen that is tender to palpation in the lower quadrants with no rebound or guarding. Bowel sounds hypoactive with abdominal distention noted. Auscultation: hypoactive bowel sounds Palpation: tender Extremity normal to inspection, full ROM and no clubbing, cyanosis or edema Skin Skin Narrative: Patient has evidence of facial swelling and diffuse rash after recent anaphylactic reaction. Neuro oriented x3, CN's II-XII intact bilaterally, moves all extremities and no focal motor deficits Sensorium / Orientation: awake, alert, oriented to person, oriented to place and oriented to time Speech: speech normal Psych affect normal Results Medical Records Data Attestation: I reviewed the patient's medical records Lab / Micro Data Attestation: I reviewed the patient's lab results. 09/20/24 16:07 09/20/24 16:07 Labs: Laboratory Results - last 24 hr 09/20/24 16:07: WBC 22.9 H, RBC 4.76, Hgb 14.2, Hct 40.6, MCV 85.3, MCH 29.8, MCHC 35.0, RDW Std Deviation 44.5 H, RDW Coeff of Jose Luis 14.3, Plt Count 271, MPV 9.6, Immature Gran % (Auto) 0.600, Neut % (Auto) 79.7 H, Lymph % (Auto) 13.9 L, [place] % (Auto) 4.7, Eos % (Auto) 0.7, Baso % (Auto) 0.4, Absolute Neuts (auto) 18.2 H, Absolute Lymphs (auto) 3.19, Nucleated RBC % 0, Sodium 134, Potassium 4.0, Chloride 97 L, Carbon Dioxide 26.1, Anion Gap 11, BUN 15, Creatinine 1.04, Estim Creat Clear Calc 56.68, Est GFR (MDRD) Non-Af 59 L, BUN/Creatinine Ratio 14.1, Glucose 109 H, Lactic Acid 1.3, Calcium 9.6, Total Bilirubin 0.67, AST 17, ALT 18, Alkaline Phosphatase 68, Total Protein 7.0, Albumin 3.9, Globulin 3.1, Albumin/Globulin Ratio 1.3 Imaging Radiology Impression Abdomen/Pelvis CT 09/20/24 17:15 IMPRESSION: Sigmoid colon diverticulitis. Associated sigmoid colon wall abscess. Additional abscess within the pelvis abutting the undersurface of the uterus. Reading Location: [id number] Assessment & Plan Assessment/Plan (1) Abscess of sigmoid colon due to diverticulitis: (2) Abscess of pelvis: (3) Leukocytosis: QUALIFIERS: Leukocytosis type: unspecified Qualified Code(s): D72.829 - Elevated white blood cell count, unspecified (4) Anaphylactic reaction due to adverse effect of correct drug or medicament properly administered, initial encounter: (5) History of rectal surgery: (6) Obesity (BMI 30.0-34.9): PLAN: Plan 1. CT scan of the abdomen and pelvis with IV contrast that revealed sigmoid colon diverticulitis with associated sigmoid colon wall abscess and additional abscess within the pelvis abutting the undersurface of the uterus - Admit to ICU due to multiple abscesses complicated by recent anaphylactic reaction. Keep strict n.p.o. and resume IV metronidazole and IV clindamycin initiated second line therapy in ER. Start pantoprazole 40 mg IV daily. Give IV ondansetron as needed for nausea vomiting. Give promethazine IM as needed for breakthrough nausea. Give acetaminophen UT as needed for [id number] (level 1-5/10) pain or fever. Give hydromorphone IV as needed for severe (level 6-10/10) pain. Finally, general surgeon has been consulted to see patient on rounds in the a.m. for further recommendations regarding possible surgical intervention with help appreciated in advance. 2. Leukocytosis of 22.9K present on admission due to #1 - Serialize CBC to follow trend. 3. Suspected Anaphylactic Reaction to piperacillin-tazobactam in ER complicating #1 & #2 - Continue steroids and antihistamines as needed. Piperacillin-tazobactam added to patient's list of allergies. 4. History of rectal surgery; due to rectal wall muscle weakness done at outside facility by Dr. Grissom (2022) compounding #1 - #3 - Noted. 5. Obesity; with BMI of 32.8 this admission on semaglutide adding to the burden of disease outlined from #1 - #4 - Weight loss will be recommended. Check TSH. This complicates her case and may hamper recovery. 6. Essential hypertension; on metoprolol, valsartan and bumetanide - Hold oral regimen in favor IV hydralazine IV prn for systolic blood pressure > 160 mmHg. 7. Hyperlipidemia; on rosuvastatin - Hold statin until patient cleared for oral intake. 8. History of DM-2; currently untreated - Check HgbA1c to assess status. 9. History of tobacco abuse; with subsequent COPD - Stable with no acute flare at this time. 10. History of anal fissure - Noted. 11. History of rotator cuff surgery - Noted. 12. History of cervical cancer - Noted. 13. History of x 2 - Noted for the sake of completeness. 14. History of skin cancer - Noted. 15. History of glaucoma - Noted. 16. History of depression; currently not on treatment - Stable. 17. OA; primarily of the knee - Give acetaminophen prn as pre scale outlined in #1. 18. DVT/GI prophylaxis - SCD's only with patient likely needing surgical intervention to drain multiple abscesses. Pantoprazole 40 mg IV daily. Total time: Approximately (but not less than) 75 minutes. Charges/Coding Visit Charges Inpatient E&M: 17155 Init Hosp L3
[2024-09-20] MEDS: Famotidine 200 MG/20 ML MDV 20 MG in 0.9% Normal Saline (Pres. free 8 ML 300 MG IV (22:48)
[2024-09-20] MEDS: Clindamycin 600 MG/50 ML BAG 100 MG IV (22:49)
[2024-09-20] MEDS: HYDROmorphone 0.5 MG/0.5 ML SYRINGE IV (23:06)
[2024-09-20] MEDS: metroNIDAZOLE 750 MG in Viaflex Bag 1 BAG 150 MG IV (23:42)
[2024-09-20] MEDS: 0.9% Normal Saline (1000mL) 1,000 ML 999 ML IV (23:56)
[2024-09-21] VITALS (29 sets, daily range): BP systolic 90–146; BP diastolic 38–83; PULSE 76–100; RESP 16–25; TEMP 36.6–36.9; O2SAT 89–100; BMI 32.9; BMI 32.8
[2024-09-21 00:23] LABS: Lactic Acid 1.5 mmol/L (0.0-2.0)
[2024-09-21 00:23] LABS: Phosphorus 3.3 mg/dL (2.7-4.5)
--- OUTSIDE RECORDS SUMMARY | 2024-09-21 00:27 | XMS RPT_ITS | CCD ---
Author Organization [facility] Care Team Providers Care Community Health Promoter Name Role Phone Fanny Olivares Unavailable Unavailable Unavailable Marvel Sam DO Unavailable Solis Bedoya MD Primary Care Provider Marvel Sam DO Unavailable OLVIARES, Ms. FANNY MILAGRO Referring Unavailab le OLIVARES, Ms. FANNY MILAGRO Primary Care Unavailab le OLIVARES, Ms. FANNY MILAGRO Attending Unavailab le OLIVARES, Ms. FANNY MILAGRO Referring Unavailab le OLIVARES, Ms. FANNY MILAGRO Primary Care Unavailab le ISIS, ALICIA Attending Unavailable OLIVARES, Ms. FANNY MILAGRO Primary Care Unavailab le ISIS, ALICIA Referring Unavailable ISIS, ALICIA Attending Unavailable OLIVARES, Ms. FANNY MILAGRO Referring Unavailab le OLIVARES, Ms. FANNY MILAGRO Primary Care Unavailab le OLIVARES, Ms. FANNY MILAGRO Attending Unavailab le OLIVARES, Ms. FANNY MILAGRO Referring Unavailab le OLIVARES, Ms. FANNY MILAGRO Attending Unavailab le OLIVARES, Ms. FANNY MILAGRO Primary Care Unavailab le OLIVARES, Ms. FANNY MILAGRO Referring Unavailab le OLIVARES, Ms. FANNY MILAGRO Attending Unavailab le OLIVARES, Ms. FANNY MILAGRO Primary Care Unavailab le OLIVARES, Ms. FANNY MILAGRO Referring Unavailab le OLIVARES, Ms. FANNY MILAGRO Attending Unavailab le OLIVARES, Ms. FANNY MILAGRO Primary Care Unavailab le OLIVARES, Ms. FANNY MILAGRO Referring Unavailab le OLIVARES, Ms. FANNY MILAGRO Attending Unavailab le OLIVARES, Ms. FANNY MILAGRO Primary Care Unavailab le Marvel Sam DO Unavailable Solis Bedoya MD Primary Care Provider SOLIS BEDOYA Primary Care Unavailabl e SYSTEM, PROVIDER NOT IN Admitting Unavaila ble Hernandes, Fanny Primary Care Unavailable Tavallaee, Katy Admitting Unavailable Tavallaee, Katy Attending Unavailable Tavallaee, Katy Referring Unavailable Tavallaee, Katy Admitting Unavailable Tavallaee, Katy Attending Unavailable Tavallaee, Katy Referring Unavailable Hernandes, Fanny Primary Care Unavailable Hernandes, Fanny Referring Unavailable Hernandes, Fanny Primary Care Unavailable Hernandes, Fanny Attending Unavailable Hernandes, Fanny Primary Care Unavailable Hernandes, Fanny Attending Unavailable Hernandes, Fanny Primary Care Unavailable Hernandes, Fanny Attending Unavailable Hernandes, Fanny Attending Unavailable Hernandes, Fanny Referring Unavailable Hernandes, Fanny Primary Care Unavailable Solis Bedoya MD Primary Care Provider Elyssa CORADO, Chris Primary Care Provider [facility], [place] Unavailable Elyssa CORADO, Chris Primary Care Provider [facility] Primary Care Physician Jaime Rounding Nurse, Crow Unavailable Unavai lable [facility] [place] Primary Care Unavailable YE CORADO, DR PHILLY CRANDALL Attending Unav ailable [facility] [place] Primary Care Unavailable YE CORADO, DR PHILLY CRANDALL Attending Unav ailable [facility] [place] Primary Care Unavailable YE CORADO, DR PHILLY CRANDALL Consulting Unav zacarias BELCHER MD, DR PHILLY CRANDALL Attending Unav ailaria BELCHER MD, DR PHILLY CRANDALL Admitting Unav ailable LASABISKI DO, BOSSMAN Consulting Unavailnai RIDDLE MD, LOKESH Mares Consulting Unavailable [facility] [place] Primary Care Unavailable YE CORADO, DR PHILLY CRANDALL Attending Unav ailable [facility] [place] Primary Care Unavailable YE CORADO, DR PHILLY CRANDALL Attending Unav ailable [facility] [place] Primary Care Unavailable YE CORADO, DR PHILLY CRANDALL Attending Unav ailaria Raza MD, StoneEstelita Primary Care Provider Melinda CORADO, Shruthi Unavailable [facility] Unavailable Unavailable Trent Delaney MD Unavailable LUZMA BARILLAS Attending Unavailable LOTFIAN, STONE-ALI Primary Care Unavailable LOTFIAN, STONE-ALI Primary Care Unavailable SHRUTHI DOLAN Attending Unavailable LOTFIAN, STONE-ALI Primary Care Unavailable MARVEL SAM Attending Unavailable LOTFIAN, STONE-ALI Primary Care Unavailable LOTFIAN, STONE-ALI Referring Unavailable LOTFIAN, STONE-ALI Attending Unavailable LOTFIAN, STONE-ALI Primary Care Unavailable LOTFIAN, STONE-ALI Primary Care Unavailable ADELINE HUERTA Attending Unavailable LOTFIAN, STONE-ALI Primary Care Unavailable LOTFIAN, STONE-ALI Referring Unavailable LOTFIAN, STONE-ALI Primary Care Unavailable RAFAEL TAYLOR Referring Unavailable RAFAEL TAYLOR Attending Unavailable LOTFIAN, STONE-ALI Primary Care Unavailable LOTFIAN, STONE-ALI Referring Unavailable LOTFIAN, STONE-ALI Primary Care Unavailable KENIA THAO Referring Unavailable KENIA THAO Attending Unavailable LOTFIAN, STONE-ALI Primary Care Unavailable LOTFIAN, STONE-ALI Referring Unavailable LOTFIAN, STONE-ALI Primary Care Unavailable LOTFIAN, STONE-ALI Referring Unavailable LOTFIAN, STONE-ALI Primary Care Unavailable KENIA THAO Attending Unavailable RAFAEL TAYLOR Referring Unavailable LOTFIAN, STONE-ALI Primary Care Unavailable MALINDA SCHROEDER Attending Unavailable PATIENCE ALEXANDER Referring Unavailable LOTFIAN, STONE-ALI Primary Care Unavailable OTERO, NADEEM K Referring Unavailable OTERO NADEEM K Attending Unavailable LOTFIAN, STONE-ALI Primary Care Unavailable ADELINE HUERTA Attending Unavailable OTERO, NADEEM K Referring Unavailable LOTFIAN, STONE-ALI Primary Care Unavailable KENIA THAO Attending Unavailable RAFAEL TAYLOR Referring Unavailable LOTFIAN, STONE-ALI Primary Care Unavailable ALMAS CORDERO Referring Unavailabl e LOTFIAN, STONE-ALI Primary Care Unavailable ALMAS CORDERO Referring Unavailabl e LOTFIAN, STONE-ALI Primary Care Unavailable ALMAS CORDERO Referring Unavailabl e ALMAS CORDERO Attending Unavailabl e LOTFIAN, STONE-ALI Primary Care Unavailable LOTFIAN, STONE-ALI Primary Care Unavailable KENIA THAO Attending Unavailable RAFAEL TAYLOR Referring Unavailable LOTFIAN, STONE-ALI Primary Care Unavailable NADEEM OTERO Attending Unavailable Brown, Jaret R Primary Care Unavailable Brown, Jaret R Attending Unavailable Brown, Jaret R Attending Unavailable Brown, Jaret R Primary Care Unavailable Brown, Jaret R Referring Unavailable Brown, Jaret R Attending Unavailable Brown, Jaret R Primary Care Unavailable Brown, Jaret R Referring Unavailable Brown, Jaret R Primary Care Unavailable Chemo Varma Referring Unavailable Chemo Varma Attending Unavailable Brown, Jaret R Attending Unavailable Brown, Jaret R Primary Care Unavailable Brown, Jaret R Referring Unavailable Brown, Jaret R Primary Care Unavailable Brown, Jaret R Referring Unavailable Chemo Varma Attending Unavailable Patience Mccarty Attending Unavailable Brown, Jaret R Primary Care Unavailable Brown, Jaret R Referring Unavailable Brown, Jaret R Attending Unavailable Brown, Jaret R Referring Unavailable Brown, Jaret R Primary Care Unavailable Mingo Navarro Attending Unavailable Brown, Jaret R Primary Care Unavailable Brown, Jaret R Referring Unavailable Patience Mccarty Attending Unavailable Brown, Jaret R Primary Care Unavailable Brown, Jaret R Attending Unavailable Brown, Jaret R Primary Care Unavailable Brown, Jaret R Referring Unavailable Brown, Jaret R Primary Care Unavailable Brown, Jaret R Referring Unavailable Kojo, Chemo Attending Unavailable Brown, Jaret R Primary Care Unavailable Chemo Varma Attending Unavailable Brown, Jaret R Referring Unavailable BorChemo lee Attending Unavailable Brown, Jaret R Primary Care Unavailable Brown, Jaret R Referring Unavailable Care Physician, No Primary Referring Unava ilable Care Physician, No Primary Primary Care Unava ilable Brown, Jaret R Attending Unavailable Brown, Jaret R Attending Unavailable Brown, Jaret R Primary Care Unavailable Brown, Jaret R Referring Unavailable Allergies Allergy Classification Reported Allergen(s) Allergy Type Date of Onset Reaction(s) Facility NSAIDs (1 source) Naproxen Drug Allergy 2 Anaphylaxis [facility] Opioid Agonists (2 sources) HYDROcodone Drug Allergy 2 Vomiting, Hives, Rash [facility] Serotonin Reuptake Inhibitors (SSRIs) (1 source) traZODone Drug Allergy 2 Hives, Rash [facility] Sulfonamides (antibiotic) (1 source) Sulfonamides (Antibiotic) Drug Allergy 2 Other: See Comments, Rash [facility] (20 sources) HYDROcodone; Translations: [hydrocodone] Drug Allergy 2 Vomiting [facility] (19 sources) Sulfonamides (Antibiotic); Translations: [Sulfa Drugs] Allergy to drug (finding) Rash [facility] Work Phone: (20 sources) traMADol; Translations: [Tramadol] Drug Allergy 2 Hives, Rash, Nausea (finding) [facility] (20 sources) traZODone; Translations: [trazodone] Drug Allergy 2 Hives, Rash, Nausea (finding) [facility] (20 sources) Naproxen; Translations: [naproxen] Drug Allergy 2 Anaphylaxis, Nausea (finding) [facility] (20 sources) Sulfonamides (Antibiotic); Translations: [SULFA (SULFONAMIDE ANTIBIOTICS)] Drug Allergy 2 Other: See Comments, Rash [facility] (1 source) Sulfonamides (Antibiotic) Allergy to substance 3 UNSURE [facility] (2 sources) Acetaminophen / HYDROcodone; Translations: [acetaminophen-hy drocodone] Drug Allergy [facility] (1 source) HYDROcodone Drug Allergy 5 [facility] (1 source) meloxicam Drug Allergy 5 [facility] (1 source) Naproxen Drug Allergy 5 [facility] (1 source) Sulfonamides (Antibiotic) Drug allergy (disorder) 5 [facility] (1 source) traZODone Drug Allergy 5 [facility] Medications Current Medications Medication Drug Class(es) Dates Sig (Normalized) Sig (Original) acetaminophen 325 mg / oxyCODONE hydrochloride 5 mg oral tablet (2 sources) Opioid Agonist Start: 03-09-2023 End: 03-14-2023 take 1 tablet by mouth every six hours as needed for pain Percocet 5 mg-325 mg oral tablet Dose = 1 tab(s), Oral, q6h, PRN Pain, X 5 day(s), # 20 tab(s), 0 Refill(s), Pharmacy: [facility], Aftercare following surgery, 162.6, cm, 03/09/23 9:14:00 EST, Height, 81.7, kg, 03/09/23 9:14:00 EST, Dosing Weight Start Date: 03/09/23 Stop Date: 03/14/23 Status: Ordered Start: 02-23-2023 End: 02-28-2023 take 1 tablet by mouth every four hours as needed for pain Percocet 5 mg-325 mg oral tablet Dose = 1 tab(s), Oral, q4h, PRN for pain, X 5 day(s), # 30 tab(s), 0 Refill(s), Pharmacy: [facility], Acute post-operative pain, 162.6, cm, 02/23/23 13:08:00 EST, Height, 82.7, kg, 02/23/23 13:08:00 EST, Dosing Weight Start Date: 02/23/23 Stop Date: 02/28/23 Status: Ordered [id number] 200 actuat albuterol 0.09 mg/actuat metered dose inhaler (20 sources) beta2-Adrenergic Agonist Start: 09-30-2023 End: 10-30-2023 take 2 puff(s) by inhalation every six hours as needed albuterol HFA (PROVENTIL HFA, VENTOLIN HFA) 90 mcg/actuation inhaler Indications: Chronic obstructive pulmonary disease, unspecified COPD type (HCC) Inhale 2 Puffs as instructed every 6 hours as needed. 1 Each 1 09/30/2023 Active Start: 09-11-2021 End: 09-28-2023 take 2 puff(s) by inhalation every six hours as needed albuterol HFA (PROVENTIL HFA, VENTOLIN HFA) 90 mcg/actuation inhaler Indications: Chronic obstructive pulmonary disease, unspecified COPD type (HCC) Inhale 2 Puffs as instructed every 6 hours as needed. 1 Each 1 08/22/2023 09/28/2023 Discontinued Start: 06-18-2021 Albuterol Sulf ate (2.5 MG/3ML) 0.083% Inhalation Nebulization Solution USE 1 VIAL (3ML) IN NEBULIZER EVERY 4 HOURS NEEDED FOR WHEEZING Quantity: 180 Refills: 0 Ordered: 16-Sep-2021 DO Start : 18-Jun-2021 Active Albuterol Sulfat e HFA 108 (90 Base) MCG/ACT Inhalation Aerosol Solution Quantity: 0 Refills: 0 Ordered: 08-Aug-2021 DO Active Albuterol Sulfat e HFA 108 (90 Base) MCG/ACT Inhalation Aerosol Solution Quantity: 0 Refills: 0 Ordered: 08-Aug-2021 DO Active Comment on above: Inhale 2 Puffs as in structed every 6 hours as needed. Albuterol (Eqv-Proventil HFA) 90 mcg/inh inhalation aerosol (3 sources) Start: 02-11-20 take 2 puff(s) by inhalation every six hours as needed for wheezing Albuterol (Eqv-Proventil HFA) 90 mcg/inh inhalation aerosol 2 puff(s), Inhalation, q6hr, PRN as needed for wheezing, 0 Refill(s) Start Date: 02/10/23 Status: Ordered benoxinate hydrochloride 4 mg/ml / fluorescein sodium 2.5 mg/ml ophthalmic solution (2 sources) Diagnostic Dye Start: 12-29-19 End: 12-30-19 fluorescein-benoxi arian 0.25-0.4 % 1 Drop (FLURESS) Start: 01-10-2022 End: 01-11-2022 fluorescein-benoxinate 0.25- 0.4 % 1 Drop (FLURESS) bumetanide 1 mg oral tablet (20 sources) Loop Diuretic Start: 09-30-2023 End: 10-30-2023 take 1 tablet by mouth once daily bumetanide (BUMEX) 1 mg tablet Take 1 tablet by mouth once daily. 90 tablet 1 10/22/2023 Active Start: 04-20-2023 End: 04-18-2024 take 1.5 tablets by mouth once daily bumetanide (BUMEX) 1 mg tablet Indications: Leg swelling Take 1.5 tablets by mouth once daily. 135 tablet 08/06/2023 04/18/2024 Discontinued Start: 02-06-2023 End: 09-28-2023 take 1 tablet by mouth once daily bumetanide (BUMEX) 1 mg tablet Take 1 tablet by mouth once daily. 30 tablet 0 02/06/2023 09/28/2023 Discontinued Start: 01-16-2022 End: 03-26-2023 take 1.5 tablets by mouth once daily bumetanide (BUMEX) 1 mg tablet Indications: Leg swelling Take 1.5 tablets by mouth once daily. 45 tablet 0 07/17/2022 08/12/2022 Discontinued Start: 09-25-2021 End: 12-29-2021 take 1 tablet by mouth once daily bumetanide (BUMEX) 1 mg tablet Indications: Leg swelling Take 1 tablet by mouth once daily. 30 tablet 0 11/29/2021 Active Start: 09-25-2021 take 1 tablet by tejas th once daily as needed Bumetanide 0.5 MG Oral Tablet TAKE 1 TABLET Daily prn Quantity: 30 Refills: 0 Ordered: 25-Sep-2021 Fanny Dowell Start : 25-Sep-2021 Active Comment on above: Take 1 tablet by tejas th once daily. Take 1 mg by mouth o nce daily. Take 1.5 tablets by mouth once daily. 12 hr buPROPion hydrochloride 150 mg extended release oral tablet (20 sources) Aminoketone Start: End: take 1 tablet by mouth twice daily buPROPion SR (WELLBUTRIN SR) 150 mg 12 hr tablet Indications: Cigarette nicotine dependence without complication Take 1 tablet by mouth two times a day. Patient should start on August 27, 2023. 60 tablet 3 08/27/2023 08/25/2023 Discontinued Start: 08-27-2023 take 1 tablet by tejas th twice daily buPROPion SR (WELLBUTRIN SR) 150 mg 12 hr tablet Indications: Cigarette nicotine dependence without complication Take 1 tablet by mouth two times a day. Patient should start on August 27, 2023. 60 tablet 3 08/27/2023 Active Start: 08-27-2023 take 1 tablet by tejas th twice daily buPROPion SR (WELLBUTRIN SR) 150 mg 12 hr tablet Indications: Cigarette nicotine dependence without complication Take 1 tablet by mouth two times a day. Patient should start on August 27, 2023. 60 tablet 3 08/27/2023 Active Start: 08-27-2023 take 1 tablet by tejas th twice daily buPROPion SR (WELLBUTRIN SR) 150 mg 12 hr tablet Indications: Cigarette nicotine dependence without complication Take 1 tablet by mouth two times a day. Patient should start on August 27, 2023. 60 tablet 3 08/27/2023 Active Start: 08-27-2023 take 1 tablet by tejas th twice daily buPROPion SR (WELLBUTRIN SR) 150 mg 12 hr tablet Indications: Cigarette nicotine dependence without complication Take 1 tablet by mouth two times a day. Patient should start on August 27, 2023. 60 tablet 3 08/27/2023 Active Start: 08-27-2023 take 1 tablet by tejas th twice daily buPROPion SR (WELLBUTRIN SR) 150 mg 12 hr tablet Indications: Cigarette nicotine dependence without complication Take 1 tablet by mouth two times a day. Patient should start on August 27, 2023. 60 tablet 3 08/27/2023 Active Start: 07-28-2023 End: 04-18-2024 buPROPion SR (WELLBUTRIN SR) 150 mg 12 hr tablet Indications: Cigarette nicotine dependence without complication TAKE 1 TABLET ONCE DAILY FOR 3 DAYS, THEN 1 TABLET TWICE DAILY THEREAFTER, BEGIN 2 WEEKS PRIOR TO QUIT DATE. 65 tablet 08/25/2023 04/18/2024 Discontinued (Discontinued by another Health Care Provider) take 1 tablet by tjeas th once daily buPROPion HCl ER (XL) 300 MG Oral Tablet Extended Release 24 Hour Take 1 tablet daily Quantity: 0 Refills: 0 Ordered: 08-Aug-2021 DO Active cholecalciferol 0.025 mg oral capsule (20 sources) Vitamin D Start: 12-15-2023 End: 03-16-2024 take 1 capsule by mouth once daily Cholecalciferol, Vitamin D3, (VITAMIN D) 25 mcg (1,000 unit) cap Take 1 capsule by mouth once daily. 30 capsule 2 12/17/2023 Active diclofenac sodium 0.01 mg/mg topical gel (20 sources) Nonsteroidal Anti-inflammatory Drug Start: 08-18-2022 End: 02-22-2023 diclofenac (VOLTAREN ARTHRITIS PAIN) 1 % topical gel Indications: Primary osteoarthritis of both knees Apply 2 g to affected area four times daily. 240 g 1 12/24/2022 02/22/2023 Active Start: 05-22-2022 End: 06-21-2022 diclofenac (VOLTAREN ARTHRIT IS PAIN) 1 % topical gel Indications: Primary osteoarthritis of both knees Apply 2 g to affected area four times daily. 240 g 0 05/22/2022 06/21/2022 Active Start: 01-03-2022 End: 02-02-2022 apply 2 g topically four times daily diclofenac (VOLTAREN) 1 % topical gel Indications: Primary osteoarthritis of both knees Apply 2 g to affected area four times daily. 20 g 0 01/03/2022 02/02/2022 Active Comment on above: Apply 2 g to affecte d area four times daily. docusate sodium 100 mg oral capsule (20 sources) Start: 09-26-2021 End: 03-08-2022 take 1 capsule by mouth every twenty-four hours docusate sodium (COLACE) 100 mg capsule Indications: Peptic ulcer disease Take 1 capsule by mouth q 24 HR. 30 capsule 0 02/06/2022 03/08/2022 Active Start: 09-26-2021 take 1 capsule by mo uth once daily as needed for constipation Colace 100 MG Oral Capsule TAKE 1 CAPSULE Daily PRN constipation Quantity: 90 Refills: 1 Ordered: 26-Sep-2021 Fanny Dowell Start : 26-Sep-2021 Active Comment on above: Take 100 mg by mouth q 24 HR. Take 1 capsule by mo uth q 24 HR. docusate sodium 50 mg / sennosides, nursing home 8.6 mg oral tablet (4 sources) Start: 5 take 1 tablet by mouth once daily at bedtime STIMULANT LAXATIVE PLUS 8.6-50 mg per tablet Take 1 tablet by mouth daily at bedtime. 06/28/2024 Active emollient combination no.117 (EUCERIN ADVANCED REPAIR HAND) crea (20 sources) Start: 4 emollient combination no.117 (EUCERIN ADVANCED REPAIR HAND) crea Apply 1 mg to affected area once daily as needed. 78 g 1 12/03/2023 Active esomeprazole 40 mg delayed release oral capsule (20 sources) Proton Pump Inhibitor Start: 2 End: 5 take 1 capsule by mouth once daily esomeprazole (NEXIUM) 40 mg capsule Indications: Peptic ulcer disease Take 1 capsule by mouth once daily. 90 capsule 1 12/28/2023 Active Comment on above: Take 40 mg by mouth once daily. Take 1 capsule by mo uth once daily. famotidine 20 mg oral tablet (18 sources) Histamine-2 Receptor Antagonist Start: 2 End: 2 take 1 tablet by mouth twice daily famotidine (PEPCID) 20 mg tablet Indications: Peptic ulcer disease Take 1 tablet by mouth twice daily. 60 tablet 0 02/06/2022 03/08/2022 Active Comment on above: Take 20 mg by mouth twice daily. Take 1 tablet by tejas th twice daily. ferrous sulfate 325 mg oral tablet (20 sources) Start: 2 End: 3 ferrous sulfate 325 mg (65 mg iron) tablet Take by mouth. 09/26/2021 Active Start: 09-26-2021 End: 03-08-2022 take 1 tablet by mouth three times daily at mealtime FEROSUL 325 mg (65 mg iron) tablet Indications: Peptic ulcer disease Take 1 tablet by mouth three times daily with meals. 90 tablet 0 02/06/2022 03/08/2022 Active Comment on above: Take 1 tablet by tejas th three times daily with meals. Take 1 tablet by tejas th once daily. Take by mouth. 30 actuat fluticasone furoate 0.1 mg/actuat / umeclidinium 0.0625 mg/actuat / vilanterol 0.025 mg/actuat dry powder inhaler (20 sources) Anticholinergic, Corticosteroid, beta2-Adrenergic Agonist Start: 5 End: 5 take 1 puff(s) by inhalation once daily TRELEGY ELLIPTA 100-62.5-25 mcg inhalation powder Indications: Chronic obstructive pulmonary disease, unspecified COPD type (HCC) Inhale 1 puff as instructed once daily. 60 each 1 08/18/2024 10/17/2024 Active Start: 03-14-2024 End: 05-16-2024 take 1 puff(s) by inhalation once daily TRELEGY ELLIPTA 100-62.5-25 mcg inhalation powder Indications: Chronic obstructive pulmonary disease, unspecified COPD type (HCC) Inhale 1 Puff as instructed once daily. 60 Each 1 03/14/2024 05/16/2024 Discontinued Start: 08-31-2023 End: 03-07-2024 take 1 puff(s) by inhalation once daily TRELEGY ELLIPTA 100-62.5-25 mcg inhalation powder Indications: Chronic obstructive pulmonary disease, unspecified COPD type (HCC) Inhale 1 Puff as instructed once daily. 60 Each 1 11/24/2023 03/07/2024 Discontinued Start: 05-07-2023 End: 08-28-2023 take 1 puff(s) by inhalation once daily TRELEGY ELLIPTA 100-62.5-25 mcg inhalation powder Indications: Chronic obstructive pulmonary disease, unspecified COPD type (HCC) Inhale 1 Puff as instructed once daily. 60 Each 1 06/03/2023 08/28/2023 Discontinued Start: 10-08-2021 End: 03-31-2023 take 1 puff(s) by inhalation once daily TRELEGY ELLIPTA 100-62.5-25 mcg inhalation powder Indications: Chronic obstructive pulmonary disease, unspecified COPD type (HCC) Inhale 1 Puff as instructed once daily. 60 Each 1 01/30/2023 03/31/2023 Active Comment on above: Inhale 1 Puff as ins tructed once daily. hydrocortisone 25 mg/ml topical cream (19 sources) Corticosteroid Start: End: hydrocortisone 2.5 % cream Apply 1 application to affected area two times a day. 28 g 1 12/03/2023 03/02/2024 Active hydrOXYzine hydrochloride 50 mg oral tablet (20 sources) Antihistamine Start: take 2 tablets by mouth every twelve hours hydrOXYzine HCl (ATARAX) 50 mg tablet Take 2 tablets by mouth every 12 hours. 06/16/2024 Active Start: 08-22-2023 End: 04-19-2024 take 1 tablet by mouth every six hours as needed hydrOXYzine HCl (ATARAX) 50 mg tablet Take 1 tablet by mouth four times a day as needed for anxiety. 180 tablet 1 01/20/2024 04/19/2024 Active Start: 05-07-2023 End: 08-02-2023 take 1 tablet by mouth every six hours as needed for anxiety and anxiety hydrOXYzine HCl (ATARAX) 50 mg tablet Indications: Anxiety Take 1 tablet by mouth four times a day as needed. 120 tablet 1 06/03/2023 08/02/2023 Active Start: 12-16-2022 End: 03-31-2023 take 1 tablet by mouth every six hours as needed for anxiety and anxiety hydrOXYzine HCl (ATARAX) 50 mg tablet Indications: Anxiety Take 1 tablet by mouth four times a day as needed. 120 tablet 1 01/30/2023 03/31/2023 Active Start: 11-24-2022 End: 12-24-2022 take 1 tablet by mouth every six hours as needed for anxiety and anxiety hydrOXYzine HCl (ATARAX) 25 mg tablet Indications: Anxiety Take 1 tablet by mouth four times daily as needed. 120 tablet 0 11/24/2022 12/24/2022 Active Start: 10-13-2022 End: 11-12-2022 take 1 tablet by mouth every six hours as needed for anxiety and anxiety hydrOXYzine HCl (ATARAX) 25 mg tablet Indications: Anxiety Take 1 tablet by mouth four times daily as needed. 120 tablet 0 10/13/2022 11/12/2022 Active Start: 06-24-2022 End: 10-09-2022 take 1 tablet by mouth every six hours as needed for anxiety and anxiety hydrOXYzine HCl (ATARAX) 25 mg tablet Indications: Anxiety Take 1 tablet by mouth four times daily as needed. 120 tablet 0 08/15/2022 09/09/2022 Discontinued Start: 04-09-2022 End: 06-18-2022 take 1 tablet by mouth every six hours as needed for anxiety and anxiety hydrOXYzine HCl (ATARAX) 25 mg tablet Indications: Anxiety Take 1 tablet by mouth four times daily as needed. 120 tablet 0 05/19/2022 06/18/2022 Active Start: 08-08-2021 End: 03-08-2022 take 1 tablet by mouth every six hours as needed for anxiety and anxiety hydrOXYzine HCl (ATARAX) 25 mg tablet Indications: Anxiety Take 1 tablet by mouth four times daily as needed. 120 tablet 0 02/06/2022 03/08/2022 Active Comment on above: Take 25 mg by mouth four times daily as needed. Take 1 tablet by tejas th four times daily as needed. Take 1 tablet by tejas th four times a day as needed. magnesium hydroxide 80 mg/ml oral suspension (3 sources) Start: 02-16-2023 Taylor Milk of Magnesia 8% oral suspension 2.4 gram(s) Dose = 30 mL, Oral, qAM, PRN for constipation, # 300 mL, 0 Refill(s) Start Date: 02/16/23 Status: Ordered 24 hr metoprolol succinate 25 mg extended release oral tablet (20 sources) beta-Adrenergic Francheska Start: 07-03-2023 End: 06-25-2024 take 1 tablet by mouth once daily metoprolol succinate ER (TOPROL XL) 25 mg 24 hr tablet Indications: Primary hypertension Take 1 tablet by mouth once daily. 90 tablet 1 12/28/2023 Active Start: 02-24-2023 End: 02-24-2023 metoprolol succinate 25 mg o ral TABLET extended release Start: 02/24/23 9:00:00 AM EST, Dose = 25 mg, = 1 tab(s), Oral, 02/23/23 19:08:00 EST Start Date: 02/24/23 Stop Date: 02/24/23 Status: Completed Start: 02-10-2023 Metoprolol Suc cinate ER 25 mg oral TABLET extended release Dose : 25 mg = 1 tab(s), Oral, qAM, 0 Refill(s) Start Date: 02/10/23 Status: Ordered Start: 10-08-2021 End: 06-22-2023 take 1 tablet by mouth once daily metoprolol succinate ER (TOPROL XL) 25 mg 24 hr tablet Indications: Primary hypertension Take 1 tablet by mouth once daily. 90 tablet 1 12/24/2022 Active Comment on above: Take 25 mg by mouth once daily. Take 1 tablet by tejas th once daily. montelukast 10 mg oral tablet (20 sources) Leukotriene Receptor Antagonist Start: 2 End: 4 take 1 tablet by mouth once daily at bedtime montelukast (SINGULAIR) 10 mg tablet Indications: Chronic obstructive pulmonary disease, unspecified COPD type (HCC) Take 1 tablet by mouth daily at bedtime. 90 tablet 1 08/03/2023 Active Comment on above: Take 10 mg by mouth daily at bedtime. Take 1 tablet by tejas th daily at bedtime. Multivitamin preparation (3 sources) Start: 3 take 1 tablet by mouth once daily Multivitamin Dose = 2 tab(s), Oral, Daily, 0 Refill(s) Start Date: 02/10/23 Status: Ordered nicotine 4 mg oral lozenge (17 sources) Cholinergic Nicotinic Agonist Start: End: Nicotine Polacrilex 4 mg lozenge Indications: Cigarette nicotine dependence without complication Place 1 Lozenge between cheek and gum every 2 hours as needed (smoking). 108 Lozenge 2 06/23/2023 07/23/2023 Active Start: 08-27-2022 End: 11-26-2022 apply 1 dose transdermal route every twenty-four hours nicotine (NICODERM CQ) 14 mg/24 hr Indications: Tobacco abuse Apply 1 Patch as directed every 24 hours. 30 Patch 2 08/27/2022 11/26/2022 Discontinued Comment on above: Apply 1 Patch as dir ected every [address] 1 Lozenge betw een cheek and gum every 2 hours as needed (smoking). phenylephrine hydrochloride 25 mg/ml ophthalmic solution (8 sources) alpha-1 Adrenergic Agonist Start: 08-05-2024 End: 08-06-2024 PHENYLephrine 2.5 % 1 drop (AK-DILATE, MARIBELL-SYNEPHRINE) Start: 08-05-2024 End: 08-06-2024 1 drop, BOTH EYES, DIRECT ED, Starting on Thu08/05/24 at 1330, Until Thu08/06/24 at 0129, Administer for dilation PROTECT FROM LIGHT Start: 01-06-2024 End: 01-06-2024 PHENYLephrine 2.5 % 1 Drop ( AK-DILATE, MARIBELL-SYNEPHRINE) Start: 01-06-2024 End: 01-06-2024 1 Drop, BOTH EYES, DIRECT ED, Starting on Thu01/06/24 at 1030, Until Thu01/06/24 at 2229, Administer for dilation PROTECT FROM LIGHT Start: 12-29-2023 End: 12-30-2023 PHENYLephrine 2.5 % 1 Drop ( AK-DILATE, MARIBELL-SYNEPHRINE) Start: 12-18-2022 End: 12-19-2022 PHENYLephrine 2.5 % 1 Drop ( AK-DILATE, MARIBELL-SYNEPHRINE) Start: 01-10-2022 End: 01-11-2022 PHENYLephrine 2.5 % 1 Drop ( AK-DILATE, MARIBELL-SYNEPHRINE) potassium chloride 10 meq extended release oral tablet (1 source) Start: 12-26-2022 End: 12-31-2022 take 1 tablet by mouth once daily potassium chloride (K-TAB) 10 mEq tablet Indications: Hypokalemia Take 1 tablet by mouth once daily for 5 days. 5 tablet 0 12/26/2022 12/31/2022 Active Comment on above: Take 1 tablet by [facility] once daily for 5 days. predniSONE 10 mg oral tablet (20 sources) Start: 12-14-2023 predniSONE (DELTASONE) 10 mg tablet Indications: Primary osteoarthritis of right knee 6 tabs po day 1, then 5 tabs day 2, 4 tabs day 3, 3 tabs day 4, 2 tabs day 5, 1 tab day 6. 21 tablet 12/14/2023 Active Start: 09-25-2021 take 3 tablets by [facility] once daily predniSONE 10 MG Oral Tablet TAKE 3 TABLET Daily Quantity: 15 Refills: 0 Ordered: 25-Sep-2021 Fanny Dowell Start : 25-Sep-2021 Active proparacaine hydrochloride 5 mg/ml ophthalmic solution (5 sources) Local Anesthetic Start: 08-05-2024 End: 08-06-2024 proparacaine 0.5 % 1 drop (ALCAINE) Start: 08-05-2024 End: 08-06-2024 1 drop, BOTH EYES, DIRECT ED, Starting on Thu08/05/24 at 1330, Until 08/06/24 at 0129, Administer for pneumo tonometry, tonopen tonometry, or pachymetry. In the event of a proparacaine shortage, administer tetracaine 0.5% ophthalmic drops 1 drop in the left eye as directed for pneumo tonometry, tonopen tonometry, or pachymetry Start: 01-06-2024 End: 01-06-2024 proparacaine 0.5 % 1 Drop (A LCAINE) Start: 01-06-2024 End: 01-06-2024 1 Drop, BOTH EYES, DIRECT ED, Starting on Thu01/06/24 at 1030, Until Thu01/06/24 at 2229, Administer for pneumo tonometry, tonopen tonometry, or pachymetry. In the event of a proparacaine shortage, administer tetracaine 0.5% ophthalmic drops 1 drop in the left eye as directed for pneumo tonometry, tonopen tonometry, or pachymetry Start: 12-18-2022 End: 12-19-2022 proparacaine 0.5 % 1 Drop (A LCAINE) psyllium 3400 mg powder for oral suspension (3 sources) Start: 02-16-2023 take 3.4 doses by mouth once daily Metamucil 3.4 g/5.2 g oral powder for reconstitution Dose : 3.4 gram(s) =, Oral, qDay, # 283 gram(s), 0 Refill(s) Start Date: 02/16/23 Status: Ordered rosuvastatin calcium 10 mg oral tablet (20 sources) HMG-CoA Reductase Inhibitor Start: 02-06-2022 End: 01-30-2024 take 1 tablet by mouth once daily rosuvastatin (CRESTOR) 10 mg tablet Indications: Primary hypertension Take 1 tablet by mouth once daily. 90 tablet 1 08/03/2023 Active Comment on above: Take 10 mg by mouth once daily. Take 1 tablet by tejas th once daily. semaglutide (OZEMPIC) 0.25 mg or 0.5 mg (2 mg/3 mL) pen (20 sources) Start: 03-14-2024 semaglutide (OZEMPIC) 0.25 mg or 0.5 mg (2 mg/3 mL) pen Indications: Type 2 diabetes mellitus without complication, without long-term current use of insulin (HCC) Inject 0.25 mg subcutaneously one time a week. 3 mL 1 03/14/2024 Active Start: 12-17-2023 End: 03-07-2024 semaglutide (OZEMPIC) 0.25 m g or 0.5 mg (2 mg/3 mL) pen Indications: Type 2 diabetes mellitus without complication, without long-term current use of insulin (HCC) Inject 0.25 mg subcutaneously one time a week. 3 mL 1 12/17/2023 03/07/2024 Discontinued Start: 12-17-2023 semaglutide (O ZEMPIC) 0.25 mg or 0.5 mg (2 mg/3 mL) pen Indications: Type 2 diabetes mellitus without complication, without long-term current use of insulin (HCC) Inject 0.25 mg subcutaneously one time a week. 3 mL 1 12/17/2023 Active Start: 12-03-2023 End: 12-17-2023 semaglutide (OZEMPIC) 0.25 m g or 0.5 mg (2 mg/3 mL) pen Indications: Type 2 diabetes mellitus without complication, without long-term current use of insulin (HCC) Inject 0.25 mg subcutaneously one time a week. 3 mL 1 12/03/2023 12/17/2023 Discontinued Start: 12-03-2023 semaglutide (O ZEMPIC) 0.25 mg or 0.5 mg (2 mg/3 mL) pen Indications: Type 2 diabetes mellitus without complication, without long-term current use of insulin (HCC) Inject 0.25 mg subcutaneously one time a week. 3 mL 1 12/03/2023 Active Start: 09-15-2022 End: 09-25-2022 inject 0.5 mg by subcutaneous injection every week semaglutide (OZEMPIC) 0.25 mg or 0.5 mg (2 mg/3 mL) pen Indications: Type 2 diabetes mellitus without complication, without long-term current use of insulin (HCC) Inject 0.5 mg subcutaneously one time a week. 3 mL 1 09/15/2022 09/25/2022 Discontinued Start: 09-15-2022 inject 0.5 mg by sub cutaneous injection every week semaglutide (OZEMPIC) 0.25 mg or 0.5 mg (2 mg/3 mL) pen Indications: Type 2 diabetes mellitus without complication, without long-term current use of insulin (HCC) Inject 0.5 mg subcutaneously one time a week. 3 mL 1 09/15/2022 Active Start: 09-02-2022 End: 09-15-2022 inject 0.5 mg by subcutaneous injection every week semaglutide (OZEMPIC) 0.25 mg or 0.5 mg (2 mg/3 mL) pen Inject 0.5 mg subcutaneously one time a week. 3 mL 0 09/02/2022 09/15/2022 Discontinued Start: 09-02-2022 inject 0.5 mg by sub cutaneous injection every week semaglutide (OZEMPIC) 0.25 mg or 0.5 mg (2 mg/3 mL) pen Inject 0.5 mg subcutaneously one time a week. 3 mL 0 09/02/2022 Active Comment on above: Inject 0.5 mg subcut aneously one time a week. sucralfate 1000 mg oral tablet (20 sources) Aluminum Complex Start: End: take 1 tablet by mouth four times daily sucralfate (CARAFATE) 1 gram tablet Indications: Peptic ulcer disease Take 1 tablet by mouth four times daily. 120 tablet 0 02/06/2022 03/08/2022 Active Comment on above: Take 1 tablet by tejas four times daily. tirzepatide (MOUNJARO) 2.5 mg/0.5 mL pen injector (2 sources) Start: End: inject 2.5 mg by subcutaneous injection every week tirzepatide (MOUNJARO) 2.5 mg/0.5 mL pen injector Indications: Controlled type 2 diabetes mellitus without complication, without long-term current use of insulin (HCC) Inject 2.5 mg subcutaneously one time a week. 2 mL 0 05/22/2022 06/21/2022 Active Comment on above: Inject 2.5 mg subcut aneously one time a week. Trelegy Ellipta 100 mcg-62.5 mcg-25 mcg/inh inhalation powder (3 sources) Start: take 1 dose by inhalation once daily as needed for wheezing Trelegy Ellipta 100 mcg-62.5 mcg-25 mcg/inh inhalation powder Dose = 1 puff(s), Inhalation, qDay, PRN Shortness of breath or wheezing, 0 Refill(s) Start Date: 02/10/23 Status: Ordered tropicamide 10 mg/ml ophthalmic solution (8 sources) Anticholinergic Start: End: tropicamide 1 % 1 drop (MYDRIACYL) Start: 08-05-2024 End: 08-06-2024 1 drop, BOTH EYES, DIRECT ED, Starting on Thu08/05/24 at 1330, Until 08/06/24 at 0129, Administer for dilation Start: 01-06-2024 End: 01-06-2024 tropicamide 1 % 1 Drop (MYDR IACYL) Start: 01-06-2024 End: 01-06-2024 1 Drop, BOTH EYES, DIRECT ED, Starting on Thu01/06/24 at 1030, Until Thu01/06/24 at 2229, Administer for dilation Start: 12-29-2023 End: 12-30-2023 tropicamide 1 % 1 Drop (MYDR IACYL) Start: 12-18-2022 End: 12-19-2022 tropicamide 1 % 1 Drop (MYDR IACYL) Start: 01-10-2022 End: 01-11-2022 tropicamide 1 % 1 Drop (MYDR IACYL) valsartan 80 mg oral tablet (20 sources) Angiotensin 2 Receptor Francheska Start: 04-29-2023 End: 03-28-2024 take 1 tablet by mouth once daily valsartan (DIOVAN) 80 mg tablet Take 1 tablet by mouth once daily. 90 tablet 1 09/30/2023 Active Start: 09-16-2021 End: 06-22-2023 take 1 tablet by mouth once daily valsartan (DIOVAN) 160 mg tablet Indications: Primary hypertension Take 1 tablet by mouth once daily. 90 tablet 0 05/08/2022 08/07/2022 Discontinued Comment on above: Take 160 mg by mouth once daily. Take 1 tablet by tejas th once daily. varenicline 1 mg oral tablet (13 sources) Partial Cholinergic Nicotinic Agonist Start: take 1 tablet by mouth twice daily varenicline (CHANTIX) 1 mg tablet TAKE 1 TABLET BY MOUTH TWICE DAILY AT 9AM AND 5PM 112 tablet 06/06/2024 Active Start: 06-23-2023 End: 07-28-2023 take 1 tablet by mouth twice daily varenicline (CHANTIX CONTINUING MONTH BOX) 1 mg tablet Indications: Cigarette nicotine dependence without complication Take 1 tablet by mouth two times a day. 60 tablet 1 06/23/2023 07/28/2023 Discontinued (Discontinued by Patient) Start: 06-23-2023 End: 07-28-2023 varenicline (CHANTIX STARTIN G MONTH BOX) 0.5 mg (11)- 1 mg (42) tablet Indications: Cigarette nicotine dependence without complication Use as directed. 42 tablet 0 06/23/2023 07/28/2023 Discontinued (Discontinued by Patient) Start: 06-23-2023 varenicline (C HANTIX STARTING MONTH BOX) 0.5 mg (11)- 1 mg (42) tablet Indications: Cigarette nicotine dependence without complication Use as directed. 42 tablet 0 06/23/2023 Active Start: 06-23-2023 End: 06-23-2023 varenicline (CHANTIX STARTIN G MONTH BOX) 0.5 mg (11)- 1 mg (42) tablet Indications: Cigarette nicotine dependence without complication Use as directed. 42 tablet 0 06/23/2023 06/23/2023 Discontinued Comment on above: Use as directed. Take 1 tablet by tejas th two times a day. Completed/Discontinued Medications Medication Drug Class(es) Dates Sig (Normalized) Sig (Original) amLODIPine 5 mg oral tablet (8 sources) Dihydropyridine Calcium Channel Francheska take 1 tablet by mouth once daily amLODIPine Besylate 5 MG Oral Tablet Take 1 tablet daily Quantity: 90 Refills: 3 Ordered: 18-Sep-2021 Marshall HAYESN-FIELD MARKETING ASSOCIATE, Fanny Active betamethasone 3 mg/ml / betamethasone acetate 3 mg/ml injectable suspension (7 sources) Corticosteroid Start: 04-18-2024 End: 04-18-2024 betamethasone acetate-betamethas one sodium phosphate 6 mg injection (CELESTONE) Start: 04-18-2024 End: 04-18-2024 6 mg, Injection - FOR ORTHO USE ONLY, ONCE, 1 dose, Starting on Thu04/18/24 at 1135, Until Thu04/18/24 at 1135 Start: 01-11-2024 End: 01-11-2024 betamethasone acetate-betame thasone sodium phosphate 6 mg injection (CELESTONE) Start: 01-11-2024 End: 01-11-2024 6 mg, Injection - FOR ORTHO USE ONLY, ONCE, 1 dose, Starting on 01/11/24 at 1141, Until Thu01/11/24 at 1141 Start: 09-28-2023 End: 09-28-2023 betamethasone acetate-betame thasone sodium phosphate 6 mg injection (CELESTONE) Start: 06-22-2023 End: 06-22-2023 betamethasone acetate-betame thasone sodium phosphate 6 mg injection (CELESTONE) bisacodyl 5 mg delayed release oral tablet (7 sources) Stimulant Laxative Start: 08-08-2021 End: 09-11-2021 Dulcolax 5 MG Oral Tablet Delayed Release Take as directed Quantity: 6 Refills: 0 Ordered: 08-Aug-2021 Fanny Dowell Start : 08-Aug-2021 End : 11-Sep-2021 Complete Blood-Glucose Meter (20 sources) Start: 02-06-2022 End: 02-06-2023 Blood-Glucose Meter Indications: Controlled type 2 diabetes mellitus without complication, without long-term current use of insulin (HCC) 1 Each as needed. 1 Each 0 02/06/2022 02/06/2023 Start: 02-06-2022 End: 02-06-2023 Blood-Glucose Meter Indicati ons: Controlled type 2 diabetes mellitus without complication, without long-term current use of insulin (HCC) 1 Each as needed. 1 Each 0 02/06/2022 02/06/2023 Active Start: 01-03-2022 End: 02-05-2022 Blood-Glucose Meter Indicati ons: Controlled type 2 diabetes mellitus without complication, without long-term current use of insulin (HCC) 1 Each as needed. 1 Each 0 01/03/2022 02/05/2022 Discontinued Start: 01-03-2022 End: 01-03-2023 Blood-Glucose Meter Indicati ons: Controlled type 2 diabetes mellitus without complication, without long-term current use of insulin (HCC) 1 Each as needed. 1 Each 0 01/03/2022 01/03/2023 Active Comment on above: 1 Each as needed. 60 actuat budesonide 0.08 mg/actuat / formoterol fumarate 0.0045 mg/actuat metered dose inhaler (10 sources) Corticosteroid, beta2-Adrenergic Agonist Start: 08-09-19 take 2 puff(s) by mouth twice daily Symbicort 80-4.5 MCG/ACT Inhalation Aerosol INHALE 2 PUFFS TWICE DAILY. RINSE MOUTH AFTER USE. Quantity: 1 Refills: 1 Ordered: 08-Aug-2021 Fanny Dowell Start : 08-Aug-2021 Active diazePAM 5 mg oral tablet (4 sources) Benzodiazepine Start: 11-08-19 diazePAM 5 MG Oral Tablet TAKE 1-2 TAB 30-60 MINUTES BEFORE PROCEDURE. MAY REPEAT IF NEEDED Quantity: 4 Refills: 0 Ordered: 07-Nov-2021 Marshall DEVELOPMENT CHEMIST-[employer] MARKETING ASSOCIATE, Fanny Start : 07-Nov-2021 Active oarrs reviewed fiber advance gummy (3 sources) Start: 02-17-20 fiber advance gummy fiber advance gummy, 2 gummies, Oral, qDay, 0 Refill(s), 84.1 Start Date: 02/16/23 Status: Ordered glimepiride 1 mg oral tablet (20 sources) Sulfonylurea Start: 01-04-20 End: 07-09-19 take 1 tablet by mouth once daily glimepiride (AMARYL) 1 mg tablet Indications: Controlled type 2 diabetes mellitus without complication, without long-term current use of insulin (HCC) Take 1 tablet by mouth once daily. 90 tablet 0 04/09/2022 05/22/2022 Discontinued (Course of therapy completed) Comment on above: Take 1 tablet by tejas th once daily. glucose 4000 mg chewable tablet (20 sources) Start: 01-04-20 End: 04-29-19 glucose 4 gram chewable tablet Indications: Controlled type 2 diabetes mellitus without complication, without long-term current use of insulin (HCC) Take 4 tablets by mouth as needed for low blood sugar. 10 tablet 5 02/06/2022 04/29/2023 Discontinued Comment on above: Take 4 tablets by mo [facility] as needed for low blood sugar. isopropyl alcohol 0.7 ml/ml medicated pad (20 sources) Start: 12-11-19 alcohol swabs Indications: Controlled type 2 diabetes mellitus without complication, without long-term current use of insulin (HCC) Use with blood glucose test 2 times daily. Insulin Dep? No 200 Each 5 12/10/2022 Active Start: 01-03-2022 End: 12-08-2022 alcohol swabs Indications: C ontrolled type 2 diabetes mellitus without complication, without long-term current use of insulin (HCC) Use with blood glucose test 2 times daily. Insulin Dep? No 200 Each 5 07/01/2022 12/08/2022 Discontinued Comment on above: Use with blood gluco se test 2 times daily. Insulin Dep? No Lactobacillus acidophilus (20 sources) Start: 2 End: 3 take 1 capsule by mouth twice daily FREEZE DRIED ACIDOPHILUS cap Indications: Peptic ulcer disease Take 1 capsule by mouth twice daily. 60 capsule 0 02/06/2022 08/20/2022 Discontinued (Discontinued by Patient) Start: 02-06-2022 take 1 capsule by mo ut twice daily FREEZE DRIED ACIDOPHILUS cap Indications: Peptic ulcer disease Take 1 capsule by mouth twice daily. 60 capsule 0 02/06/2022 Active Start: 02-06-2022 End: 03-08-2022 take 1 capsule by mouth twice daily FREEZE DRIED ACIDOPHILUS cap Indications: Peptic ulcer disease Take 1 capsule by mouth twice daily. 60 capsule 0 02/06/2022 03/08/2022 Active Start: 08-09-2021 End: 02-05-2022 take 1 capsule by mouth twice daily FREEZE DRIED ACIDOPHILUS cap Take 1 capsule by mouth twice daily. 0 08/09/2021 02/05/2022 Discontinued Start: 08-09-2021 take 1 capsule by mo uth twice daily FREEZE DRIED ACIDOPHILUS cap Take 1 capsule by mouth twice daily. 0 08/09/2021 Active Start: 08-08-2021 take 1 capsule by [facility] twice daily Probiotic Acidophilus Oral Capsule Take 1 capsule twice daily Quantity: 180 Refills: 3 Ordered: 08-Aug-2021 Marshall MELO-Fanny OCAMPO Start : 08-Aug-2021 Active Start: 08-08-2021 take 1 capsule by [facility] twice daily Probiotic Acidophilus Oral Capsule Take 1 capsule twice daily Quantity: 180 Refills: 3 Ordered: 08-Aug-2021 Marshall MELO-Fanny OCAMPO Start : 08-Aug-2021 Active Comment on above: Take 1 capsule by [facility] twice daily. lactobacillus rhamnosus gg [id number] unt oral capsule (14 sources) Start: 08-21-19 End: 11-27-19 take 1 capsule by mouth once daily lactobacillus rhamnosus (CULTURELLE) 15 billion cell capsule Take 1 capsule by mouth once daily. 90 capsule 0 08/20/2022 11/26/2022 Discontinued Comment on above: Take 1 capsule by [facility] once daily. 10 ml lidocaine hydrochloride 10 mg/ml injection (8 sources) Antiarrhythmic, Amide Local Anesthetic Start: 04-18-19 25 End: 04-18-19 lidocaine (PF) 10 mg/mL (1 %) 5 mL injection (XYLOCAINE) Start: 04-18-2024 End: 04-18-2024 5 mL, Injection - FOR ORTHO USE ONLY, ONCE, 1 dose, Starting on Thu04/18/24 at 1135, Until Thu04/18/24 at 1135 Start: 01-11-2024 End: 01-11-2024 lidocaine (PF) 10 mg/mL (1 % ) 5 mL injection (XYLOCAINE) Start: 01-11-2024 End: 01-11-2024 5 mL, Injection - FOR ORTHO USE ONLY, ONCE, 1 dose, Starting on Thu01/11/24 at 1141, Until Thu01/11/24 at 1141 Start: 09-28-2023 End: 09-28-2023 lidocaine (PF) 10 mg/mL (1 % ) 5 mL injection (XYLOCAINE) Start: 06-22-2023 End: 06-22-2023 lidocaine (PF) 10 mg/mL (1 % ) 5 mL injection (XYLOCAINE) Start: 01-24-2023 Lidocaine (Rec ticare) 5 % cream Active 1 APPLIC TOPICAL THREE TIMES A DAY January 24, 2023 12:00am loperamide hydrochloride 2 mg oral capsule (20 sources) Opioid Agonist Start: 08-20-2022 take 1 capsule by mouth every six hours as needed for diarrhea and diarrhea loperamide (IMODIUM) 2 mg cap(s) Indications: Diarrhea, unspecified type Take 1 capsule by mouth four times daily as needed for diarrhea for up to 15 days. 60 capsule 0 08/20/2022 Active Comment on above: Take 1 capsule by [facility] four times daily as needed for diarrhea for up to 15 days. magnesium citrate 58.2 mg/ml oral solution (7 sources) Start: 08-08-2021 End: 09-11-2021 Magnesium Citrate 1.745 GM/30ML Oral Solution USE DIRECTED. Quantity: 1 Refills: 0 Ordered: 03-Sep-2021 Fanny Dowell Start : 08-Aug-2021 End : 11-Sep-2021 Complete melatonin 5 mg oral capsule (20 sources) Start: 12-03-2023 End: 04-18-2024 take 1 capsule by mouth once daily at bedtime Melatonin 5 mg cap Take 1 capsule by mouth daily at bedtime. 90 capsule 12/03/2023 04/18/2024 Discontinued (Discontinued by Patient) Start: 08-15-2022 End: 12-16-2022 take 1 tablet by mouth at bedtime as needed melatonin 3 mg tablet Indications: Insomnia, unspecified type Take 1 tablet by mouth at bedtime as needed for for insomnia. 30 tablet 0 08/15/2022 12/16/2022 Discontinued (Course of therapy completed) Start: 05-22-2022 End: 08-13-2022 take 1 tablet by mouth at bedtime as needed melatonin 3 mg tablet Indications: Insomnia, unspecified type Take 1 tablet by mouth at bedtime as needed for for insomnia. 30 tablet 0 07/01/2022 08/13/2022 Discontinued Comment on above: Take 1 tablet by tejas th at bedtime as needed for for insomnia. meloxicam 15 mg oral tablet (4 sources) Nonsteroidal Anti-inflammatory Drug take 1 tablet by mouth once daily Meloxicam 15 MG Oral Tablet Take 1 tablet daily Quantity: 90 Refills: 0 Ordered: 09-Aug-2021 Marshall HAYESN-[employer] MARKET[employer] ASSOCIATE, Fanny Active 24 hr metFORMIN hydrochloride 500 mg extended release oral tablet (20 sources) Biguanide Start: 05-12-19 End: 08-20-19 23 take 2 tablets by mouth once daily at dinner metFORMIN ER (GLUCOPHAGE XR) 500 mg 24 hr tablet Take 2 tablets by mouth daily with dinner. 180 tablet 1 06/30/2022 08/19/2022 Discontinued (Side Effects) Comment on above: Take 1 tablet by tejas th daily with dinner. Increase to 2 tablets in 2 weeks with dinner if tolerating. Take 2 tablets by mo uth daily with dinner. mineral oil 0.14 mg/mg / petrolatum 0.749 mg/mg / phenylephrine hydrochloride 0.0025 mg/mg rectal ointment (20 sources) alpha-1 Adrenergic Agonist Start: 08-19-19 End: 09-18-19 hemorrhoid ointment (PREPARATION H) 0.25-14-74.9 % rectal ointment Indications: Hemorrhoids, unspecified hemorrhoid type by RECTAL route twice daily as needed. 28 g 0 08/18/2022 Active Comment on above: by RECTAL route twic e daily as needed. pantoprazole 40 mg delayed release oral tablet (2 sources) Proton Pump Inhibitor End: 08-09-19 take 1 tablet by mouth once daily Pantoprazole Sodium 40 MG Oral Tablet Delayed Release Take 1 tablet daily Quantity: 0 Refills: 0 Ordered: 08-Aug-2021 DO End : 08-Aug-2021 Complete polyethylene glycol 3350 65434 mg powder for oral solution (3 sources) Osmotic Laxative Start: 08-09-19 Polyethylene Glycol 3350 17 GM/SCOOP Oral Powder MIX 238 GM Once As Directed Mix with 64 ounces of clear liquids Quantity: 1 Refills: 0 Ordered: 08-Aug-2021 Fanny Dowell Start : 08-Aug-2021 Active 0.25 mg, 0.5 mg dose 1.5 ml semaglutide 1.34 mg/ml pen injector (20 sources) Start: 07-01-19 End: 09-03-19 semaglutide (OZEMPIC) 0.25 mg or 0.5 mg(2 mg/1.5 mL) pen Indications: Type 2 diabetes mellitus without complication, without long-term current use of insulin (HCC) Inject 0.5 mg subcutaneously one time a week. 2 mL 1 06/30/2022 08/19/2022 Discontinued Start: 05-26-2022 End: 06-25-2022 semaglutide (OZEMPIC) 0.25 m g or 0.5 mg(2 mg/1.5 mL) pen Indications: Class 2 obesity due to excess calories without serious comorbidity with body mass index (BMI) of 35.0 to 35.9 in adult , Controlled type 2 diabetes mellitus without complication, without long-term current use of insulin (HCC) Inject 0.25 mg subcutaneously one time a week. 1.5 mL 0 05/26/2022 06/25/2022 Active Comment on above: Inject 0.25 mg subcu taneously one time a week. Inject 0.5 mg subcut aneously one time a week. semaglutide (OZEMPIC) 1 mg/dose (4 mg/3 mL) pen (9 sources) Start: 023 End: 023 inject 1 mg by subcutaneous injection every week semaglutide (OZEMPIC) 1 mg/dose (4 mg/3 mL) pen Inject 1 mg subcutaneously one time a week. 3 mL 0 11/12/2022 11/12/2022 Discontinued Start: 10-20-2022 End: 11-11-2022 inject 1 mg by subcutaneous injection every week semaglutide (OZEMPIC) 1 mg/dose (4 mg/3 mL) pen Inject 1 mg subcutaneously one time a week. 3 mL 0 10/20/2022 11/11/2022 Discontinued Start: 10-20-2022 inject 1 mg by subcu taneous injection every week semaglutide (OZEMPIC) 1 mg/dose (4 mg/3 mL) pen Inject 1 mg subcutaneously one time a week. 3 mL 0 10/20/2022 Active Start: 09-25-2022 End: 10-20-2022 inject 1 mg by subcutaneous injection every week semaglutide (OZEMPIC) 1 mg/dose (4 mg/3 mL) pen Inject 1 mg subcutaneously one time a week. 3 mL 0 09/25/2022 10/20/2022 Discontinued Start: 09-25-2022 inject 1 mg by subcu taneous injection every week semaglutide (OZEMPIC) 1 mg/dose (4 mg/3 mL) pen Inject 1 mg subcutaneously one time a week. 3 mL 0 09/25/2022 Active Comment on above: Inject 1 mg subcutan eously one time a week. semaglutide (OZEMPIC) 2 mg/dose (8 mg/3 mL) pen injector (20 sources) Start: 01-30-2023 semaglutide (OZEMPIC) 2 mg/dose (8 mg/3 mL) pen injector Indications: Controlled type 2 diabetes mellitus without complication, without long-term current use of insulin (HCC) , Obesity, Class I, BMI 30-34.9 Inject 2 mg subcutaneously one time a week. 3 mL 0 01/30/2023 Active Start: 12-12-2022 End: 01-30-2023 inject 2 mg by subcutaneous injection every week semaglutide (OZEMPIC) 2 mg/dose (8 mg/3 mL) pen injector Inject 2 mg subcutaneously one time a week. 3 mL 0 12/12/2022 01/30/2023 Discontinued Start: 12-12-2022 inject 2 mg by subcu taneous injection every week semaglutide (OZEMPIC) 2 mg/dose (8 mg/3 mL) pen injector Inject 2 mg subcutaneously one time a week. 3 mL 0 12/12/2022 Active Start: 11-12-2022 End: 12-08-2022 inject 2 mg by subcutaneous injection every week semaglutide (OZEMPIC) 2 mg/dose (8 mg/3 mL) pen injector Inject 2 mg subcutaneously one time a week. 3 mL 0 11/12/2022 12/08/2022 Discontinued Start: 11-12-2022 inject 2 mg by subcu taneous injection every week semaglutide (OZEMPIC) 2 mg/dose (8 mg/3 mL) pen injector Inject 2 mg subcutaneously one time a week. 3 mL 0 11/12/2022 Active Comment on above: Inject 2 mg subcutan eously one time a week. Problems Active Problems Problem Classification Problem Date Documented Da te Episodic/Chronic Administrative/social admission (20 sources) Patient encounter status; Translations: [Other reasons for seeking consultation] Onset: 4 Episodic Anal and rectal conditions (2 sources) Disorder of rectum; Translations: [Anal fissure, unspecified] Onset: 5 01-24-2023 Episodic Anxiety disorders (20 sources) Anxiety; Translations: [Anxiety state, unspecified] Onset: 4 Chronic Benign neoplasm of uterus (3 sources) Uterine leiomyoma; Translations: [Leiomyoma of uterus, unspecified] Episodic Blindness and vision defects (14 sources) Bilateral hyperopia of eyes; Translations: [Hypermetropia, bilateral] Onset: 5 Episodic Cataract (5 sources) Bilateral senile combined form cataracts of eyes; Translations: [Combined forms of age-related cataract, bilateral] Onset: 5 12-18-2022 Chronic Chronic obstructive pulmonary disease and bronchiectasis (20 sources) Asthma-chronic obstructive pulmonary disease overlap syndrome; Translations: [Chronic obstructive asthma, unspecified] Onset: 4 Chronic Coma; stupor; and brain damage (2 sources) Daytime somnolence; Translations: [Somnolence] Episodic Deficiency and other anemia (11 sources) Hemoglobin low; Translations: [Anemia, unspecified] Episodic Diabetes mellitus without complication (20 sources) Type 2 diabetes mellitus without complication; Translations: [Type 2 diabetes mellitus without complications] Onset: 2 Chronic Diabetes mellitus without complication (16 sources) Prediabetes; Translations: [Other abnormal glucose] 08-05-2024 Episodic Diseases of white blood cells (17 sources) Leukocytosis; Translations: [Leukocytosis, unspecified] Onset: 5 Chronic Disorders of lipid metabolism (20 sources) Hyperlipidemia; Translations: [Other and unspecified hyperlipidemia] Chronic Diverticulosis and diverticulitis (14 sources) Diverticular disease; Translations: [Diverticulosis of colon (without mention of hemorrhage)] Onset: 2 Chronic Esophageal disorders (20 sources) Gastroesophageal reflux disease; Translations: [Esophageal reflux] Onset: 2 Chronic Essential hypertension (20 sources) Hypertensive disorder; Translations: [Unspecified essential hypertension] Onset: 4 Chronic Fluid and electrolyte disorders (1 source) Hypokalemia; Translations: [Hypokalemia] 12-26-2022 Episodic Gastritis and duodenitis (1 source) Unspecified chronic gastritis without bleeding; Translations: [Unspecified chronic gastritis without bleeding] Onset: 2 Chronic Gastroduodenal ulcer (except hemorrhage) (20 sources) Gastric ulcer; Translations: [Gastric ulcer, unspecified as acute or chronic, without mention of hemorrhage or perforation, without mention of obstruction] Onset: 2 Chronic Glaucoma (6 sources) Narrow angle; Translations: [Anatomical narrow angle, unspecified eye] Onset: 4 12-29-2023 Chronic Hemorrhoids (1 source) Hemorrhoids; Translations: [Unspecified hemorrhoids] 01-15-2023 Episodic Mood disorders (20 sources) Moderate major depression, single episode; Translations: [Major depressive affective disorder, single episode, moderate] Onset: 4 08-21-2023 Chronic Nonmalignant breast conditions (1 source) Lump in upper outer quadrant of left breast; Translations: [Unspecified lump in the left breast, upper outer quadrant] Episodic Nutritional deficiencies (2 sources) Vitamin D deficiency; Translations: [Vitamin D deficiency, unspecified] Onset: 4 12-03-2023 Chronic Nutritional deficiencies (10 sources) Iron deficiency; Translations: [Iron deficiency anemia, unspecified] Episodic Osteoarthritis (20 sources) Degenerative joint disease involving multiple joints; Translations: [Osteoarthrosis, generalized, site unspecified] Onset: 5 Chronic Osteoporosis (1 source) Age-related osteoporosis without current pathological fracture; Translations: [Age-related osteoporosis without current pathological fracture] Onset: 5 Chronic Other and unspecified benign neoplasm (19 sources) Polyp of colon; Translations: [Benign neoplasm of colon] Episodic Other and unspecified benign neoplasm (1 source) Melanocytic nevi, unspecified; Translations: [Melanocytic nevi, unspecified] Onset: 5 Episodic Other complications of ; puerperium affecting management of mother (2 sources) Deliveries by ; Translations: [ delivery, without mention of indication, unspecified as to episode of care or not applicable] Episodic Comment on above: 09/17/79 40 weeks 7l bs 8oz11/18/89 female 7lbs 8oz; Other connective tissue disease (9 sources) Bursitis of shoulder; Translations: [Disorders of bursae and tendons in shoulder region, unspecified] Episodic Other connective tissue disease (16 sources) Swelling of lower limb; Translations: [Other specified soft tissue disorders] Episodic Other eye disorders (2 sources) Optic cupping; Translations: [Glaucomatous optic atrophy, bilateral] 01-06-2024 Chronic Other eye disorders (1 source) Glaucomatous optic atrophy, bilateral; Translations: [Optic cupping of both eyes] Onset: 5 Chronic Other eye disorders (3 sources) Disorder of lacrimal gland; Translations: [Dry eye syndrome of bilateral lacrimal glands] 12-18-2022 Episodic Other gastrointestinal disorders (19 sources) Abdominal bloating; Translations: [Flatulence, eructation, and gas pain] Episodic Other gastrointestinal disorders (2 sources) Abdominal distension (gaseous); Translations: [Abdominal distension (gaseous)] Onset: 2 Episodic Other gastrointestinal disorders (1 source) Diarrhea; Translations: [Diarrhea, unspecified] 01-15-2023 Episodic Other gastrointestinal disorders (1 source) Swollen abdomen; Translations: [Abdominal distension (gaseous)] 12-03-2023 Episodic Other gastrointestinal disorders (2 sources) Constipation, unspecified; Translations: [Constipation, unspecified constipation type] Onset: 4 Episodic Other liver diseases (1 source) Fatty (change of) liver, not elsewhere classified; Translations: [Fatty (change of) liver, not elsewhere classified] Onset: 2 Chronic Other lower respiratory disease (1 source) Snoring; Translations: [Snoring] Episodic Other nervous system disorders (1 source) Other chronic pain; Translations: [Chronic midline low back pain without sciatica] Onset: 4 Chronic Other nervous system disorders (1 source) Postoperative pain ; Translations: [Other acute postprocedural pain] Onset: 3 Episodic Other non-traumatic joint disorders (11 sources) Joint pain; Translations: [Pain in joint, site unspecified] Episodic Other non-traumatic joint disorders (2 sources) Shoulder pain; Translations: [Pain in right shoulder] Episodic Other non-traumatic joint disorders (1 source) Pain in right shoulder; Translations: [Pain in joint, shoulder region] 08-28-2022 Episodic Other non-traumatic joint disorders (2 sources) Pain in right knee; Translations: [Pain in joint, lower leg] Onset: 5 09-28-2023 Episodic Other nutritional; endocrine; and metabolic disorders (19 sources) Body mass index 30+ - obesity; Translations: [Body Mass Index 31.0-31.9, adult] Chronic Other nutritional; endocrine; and metabolic disorders (2 sources) Obese class II; Translations: [Obesity, unspecified] Chronic Other nutritional; endocrine; and metabolic disorders (20 sources) Severe obesity; Translations: [Morbid (severe) obesity due to excess calories] Onset: 3 Chronic Other nutritional; endocrine; and metabolic disorders (2 sources) Obesity; Translations: [Other obesity due to excess calories] Chronic Other nutritional; endocrine; and metabolic disorders (20 sources) Obese class I; Translations: [Obesity, unspecified] Onset: 3 08-27-2022 Chronic Other nutritional; endocrine; and metabolic disorders (1 source) Obesity, unspecified; Translations: [Obesity, Class I, BMI 30-34.9] Onset: 3 Chronic Other nutritional; endocrine; and metabolic disorders (2 sources) Weight gain; Translations: [Abnormal weight gain] Episodic Other and delivery including normal (2 sources) Delivery normal; Translations: [Normal delivery] Episodic Comment on above: 03/15/1975_FT_Male_6 # 14oz; Other skin disorders (9 sources) Mass of skin; Translations: [Localized superficial swelling, mass, or lump] Episodic Other skin disorders (1 source) Finding of sensation of skin; Translations: [Other skin changes] 12-03-2023 Episodic Other skin disorders (1 source) Other skin changes; Translations: [Skin sensitivity] Onset: 4 Episodic Residual codes; unclassified (1 source) Obstructive sleep apnea syndrome; Translations: [Obstructive sleep apnea (adult) (pediatric)] Chronic Residual codes; unclassified (20 sources) Past history of procedure; Translations: [Other specified personal history presenting hazards to health] Onset: 2 12-03-2023 Episodic Comment on above: [facility] [place] 3 YE[facility] A[facility] PER PTNO RMAL PER PT; [facility] [place], [phone]; Residual codes; unclassified (11 sources) Edema of foot; Translations: [Edema] Episodic Residual codes; unclassified (4 sources) Unmet drug need identified; Translations: [Other specified prophylactic or treatment measure] Episodic Residual codes; unclassified (2 sources) Insomnia; Translations: [Insomnia, unspecified] Episodic Residual codes; unclassified (1 source) Pain; Translations: [Pain, unspecified] 12-15-2022 Episodic Residual codes; unclassified (1 source) Tobacco user; Translations: [Tobacco use] 09-14-2023 Episodic Residual codes; unclassified (1 source) Edema of lower extremity; Translations: [Localized edema] 12-03-2023 Episodic Residual codes; unclassified (1 source) Personal history of other medical treatment; Translations: [Hx of mammogram] Onset: 4 Episodic Residual codes; unclassified (1 source) Localized edema; Translations: [Lower extremity edema] Onset: 4 Episodic Screening and history of mental health and substance abuse codes (1 source) Encounter for screening for depression; Translations: [Depression screen] Onset: 4 Episodic Spondylosis; intervertebral disc disorders; other back problems (2 sources) Spondylosis without myelopathy or radiculopathy, lumbar region; Translations: [Spondylosis without myelopathy or radiculopathy, lumbosacral region] Onset: 2 Chronic Spondylosis; intervertebral disc disorders; other back problems (1 source) Chronic low back pain; Translations: [Chronic midline low back pain without sciatica] 12-03-2023 Episodic Substance-related disorders (20 sources) Nicotine dependence; Translations: [Tobacco use disorder] Onset: 4 Chronic Unclassified (1 source) Chronic midline low back pain without sciatica; Translations: [Chronic midline low back pain without sciatica] Onset: 4 Past or Other Problems Problem Classification Problem Date Documented Date Episodic/Chronic Abdominal hernia (14 sources) Hiatal hernia; Translations: [Diaphragmatic hernia without mention of obstruction or gangrene] Onset: 10-31-2021 Episodic Abdominal pain (20 sources) Tenderness of epigastrium; Translations: [Abdominal tenderness, epigastric] Onset: 10-23-2021 Episodic Immunizations and screening for infectious disease (8 sources) Viral screening status; Translations: [Encounter for screening for other viral diseases] Onset: 03-26-2022 Episodic Other aftercare (2 sources) Encounter for follow-up examination after completed treatment for conditions other than malignant neoplasm; Translations: [Encntr for f/u exam aft trtmt for cond oth than malig neoplm] Onset: 10-31-2021 Episodic Other and unspecified benign neoplasm (2 sources) Polyp of colon; Translations: [Polyp of colon] Onset: 09-05-2021 Episodic Other connective tissue disease (20 sources) Disorder of rotator cuff; Translations: [Unspecified disorder of synovium and tendon, right shoulder] Onset: 06-30-2022 Episodic Other disorders of stomach and duodenum (1 source) Other diseases of stomach and duodenum; Translations: [Other diseases of stomach and duodenum] Onset: 10-31-2021 Episodic Other disorders of stomach and duodenum (1 source) Disease of stomach and duodenum, unspecified; Translations: [Disease of stomach and duodenum, unspecified] Onset: 09-05-2021 Episodic Other screening for suspected conditions (not mental disorders or infectious disease) (4 sources) Encounter for screening mammogram for malignant neoplasm of breast; Translations: [Encounter for screening for nutritional disorder] Onset: 04-29-2023 Episodic Pancreatic disorders (not diabetes) (4 sources) Cyst of pancreas; Translations: [Cyst and pseudocyst of pancreas] Onset: 11-11-2021 Episodic Residual codes; unclassified (1 source) Tobacco use; Translations: [Tobacco abuse] Onset: 04-29-2023 Episodic Residual codes; unclassified (1 source) Other specified postprocedural states; Translations: [Other specified postprocedural states] Onset: 02-11-2024 Episodic Unclassified (2 sources) Finding of menstrual bleeding; Translations: [Menstruation] Comment on above: Onset age 9 years; Results Test Name Value Interpretation Reference Range Facility PT D/C Summary (1)on 025 PT D/C Summary (1) [facility] [address] [place] [address] / REHABILITATION SERVICES DISCHARGE SUMMARY MR#: [id number] Acct: [id number] Name: AURELIO BHAKTA Rep #: [id number] : 1960 64 From: Alicia Colunga PT, Cert. T, OCS Referring Dr.: Dr. Chemo Varma DO Status: R EG RCR Insurance: [facility] [employer] MEDICAID Discharge Summary D/C summary: It has been my pleasure to treat AURELIO BHAKTA referred by Dr. Chemo Varma DO, with the diagnosis of UNILATERAL PRIMARY OSTEOARTHRITIS ,RIGHT KNEE for a total of 10 visit(s). Discharge Date: 08/25/24 Please see the following information for a summary of their discharge status. Subjective Subjective: Patient had gel injections Overall better cont to have pain Pain Left Knee: Pain Intensity (Out of 10): 0 Right Knee: Pain Intensity (Out of 10): 3 Overall Improvement % Improvement: 50 Objective Objective/Function: POSTURE: mild forward posture EDEMA: effusion medial/knee GAIT : reciprocal pattern slight antalgic gait PALAPTION: tender medial /lateral joint line AROM: supine knee flexion 0-125 degrees supine FLEXIBILITY: hamstrings min tight MMT: ( peak force) right quads 35.7 ,hamstrings 26.8 ,hip flexion 25.1 ,hip abduction 19.8 ,ankle STAIRS: one step at a time Goals Goal 1:: Patient to be I with HEP Goal Progress: Goal Met Goal 2:: Patient to improve peak force quads/hams/hip by 5-10# to improve gait( new goal) Goal Progress: Goal Met Goal 3:: Patient to improve AROM supine knee flexion by 5 -10 degrees to improve stairs Goal Progress: Progressing Goal 4:: Patient to demonstrate 50% improvement with less pain and improve function Goal Progress: Goal Met Goal 5:: Patient to improve LFES score by 5 points to improve QOL and function( new goal) Goal Progress: Goal Met Plan Plan: D/C D/C Information Discharge Comments: HEP AND MIN VISITS PER INSURANCE d/c sentence: If there are questions or concerns regarding this patient's physical therapy, please feel free to call me at [phone]. Thank you for the referral of this patient. Sincerely, Alicia Colunga, PT, Cert MDT, OCS Balance/Gait/Functional tests Balance/Special Test Scores Lower Extremity Functional Score: 50 Improvement % Improvement: 50 08/26/24 1105 CC: Dr. Jaret Fuller DO; Dr. Chemo Varma DO JLA Signed Normal [facility] Orthopedic Visit Reporton Orthopedic Visit Report [facility] [address] [place] [address] OFFICE VISIT Date of Service: 08/08/24 MR#: [id number] Acct: [id number] Name: AURELIO BHAKTA Rep #: [id number] : 1960 Provider: Dr. Chemo tolliver DO Age/Sex: 64/F Location: [facility] Status: Signed Intake Vital Signs 07/11/24 13:54 08/01/24 14:24 Height 5 ft 4 in 5 ft 4 in Weight: 187 lb BMI 32.1 Intake Visit Reasons: RIGHT KNEE Chief Complaint: 3rd Euflexxa right knee Accompanied by: Self Is patient in pain?: Yes Pain scale (1-10): 4 Allergies hydrocodone Allergy (Verified 08/08/24 14:34) RASH Sulfa (Sulfonamide Antibiotics) Allergy (Verified 08/08/24 14:34) UNSURE meloxicam Adverse Reaction (Severe, Verified 08/08/24 14:34) facial swellling naproxen Adverse Reaction (Verified 08/08/24 14:34) Nausea trazodone Adverse Reaction (Verified 08/08/24 14:34) PT UNSURE OF REACTION TRAMADOL Adverse Reaction (Uncoded 08/08/24 14:34) Nausea Medications ???Medication ???Instructions ???Recorded ???Confirmed ???Type albuterol sulfate 90 mcg/actuation 2 puff inhalation Q6H PRN 08/08/24 Rx aerosol inhaler shortness of breath or wheezing #8.5 grams fluticasone fur. 100 mcg-umeclid 1 ea inhalation QDAY #28 ea 08/08/24 Rx 62.5 mcg-vilant 25 mcg inhalat.powder (Trelegy Ellipta) bumetanide 1 mg tablet 1 mg PO QDAY #90 tabs 03/28/2408/28 Rx cholecalciferol (vitamin D3) 25 25 mcg PO QDAY #90 caps 03/28/24 0 08/08/24 Rx mcg (1,000 unit) capsule (Vitamin D3) esomeprazole magnesium 40 mg 40 mg PO QDAY #90 caps 03/28/24 Rx capsule,delayed release metoprolol succinate 25 mg 25 mg PO QDAY #90 tabs 03/28/24 Rx tablet,extended release 24 hr montelukast 10 mg tablet 10 mg PO QDAY #90 tabs 03/28/24 Rx rosuvastatin 10 mg tablet 10 mg PO QHS #90 tabs 03/28/2408/28 Rx valsartan 80 mg tablet 80 mg PO QDAY #90 tabs 03/28/24 Rx hydroxyzine HCl 50 mg tablet 100 mg (2 x 50 mg) PO BID #90 tabs 05/25/24 08/08/24 Rx sennosides 8.6 mg-docusate sodium 1 tab-cap PO QHS #30 tabs 06/28/ 5 08/08/24 Rx 50 mg tablet mecobalamin (vitamin B12) 1,000 1,000 mcg PO QDAY 07/06/24 5 History mcg lozenges semaglutide 1 mg/dose (4 mg/3 mL) 1 mg (0.75 mL) subcut QWEEK #3 mL 07/20/24 08/08/24 Rx subcutaneous pen injector indomethacin 25 mg capsule 25 mg PO BID #60 caps 07/26/2408/28 Rx Have you fallen in the past year?: Yes PFSH Medical History Groin cyst COPD (chronic obstructive pulmonary disease) Depression Cervical cancer Skin cancer IBS (irritable bowel syndrome) Hyperlipemia Hypertension Diabetes Carpal tunnel syndrome Cataracts, bilateral Arthritis Glaucoma Anal fissure Surgical History History of rectal surgery H/O: section S/P rotator cuff surgery Family History Sister Bleeding disorder Diabetes Epilepsy Father Heart disease Hypertension Bowel disease Mother Heart disease Hyperlipemia Social History adopted: No household members: none number of children: 3 current occupational status: retired pets and animals: Yes (2) pets and animals: fish sexually active: No Smoking Status: Current every day smoker tobacco type: cigarettes Tobacco: How many years used: 45 alcohol intake: never substance use type: does not use caffeine: Yes (2) Type: coffee what type of physical activity do you participate in: none do you feel safe at home: Yes HPI RIGHT KNEE Details: This documentation accurately reflects the service provided and the decisions made by me, Dr. Chemo Varma, DO 08/08/24 0807. Part of today???s visit was documented by Nicole Jacinto ATC, acting as scribe. AURELIO BHAKTA is a 64 year old F here today for right knee 3rd Euflexxa injection. Patient states last her knee was really sore and she had a difficult time with physical therapy. She states the PT said the knee was inflamed. Ortho Exam General General: Yes no acute distress Neurologic: Yes alert and Yes oriented x3 Psychologic: Yes reasonable and appropriate Right Knee Skin/Wound: Yes CDI, No erythema, No ecchymosis and No swelling Knee ROM: Yes ROM-Extension -20 to 0 and Yes ROM-Flexion 0-140 (110) Examination: Yes Med jt line tenderness, No Lat jt line tenderness, No TTP inf pole patella, Yes Crepitus, No Pain with flexion, No Pain with extention and Yes Hernandez's Stability: NML: Anterior Drawer, NML: Posterior Drawer, NML: Valgus 0, NML: Valgus 30, NML: Varus 0 and NML: Va (more content not included)... Normal [facility] Re-Evaluation - PT (1)on Re-Evaluation - PT (1) [facility] [address] [place] [address] / REEVALUATION / MEDICARE RECERTIFICATION PHYSICAL THERAPY MR#: [id number] Acct: [id number] Name: AURELIO BHAKTA Rep #: [id number] : 1960 64 From: Alicia Colunga PT, Cert. MD [place], OCS Referring Dr.: Dr. Chemo Varma DO Status:REG RCR Insurance: [facility] [facility] [employer]ICA[employer] Re-Evaluation Intro: Dr. Chemo Varma DO, It has been my pleasure to treat AURELIO BHAKTA over the last 6 visits for UNILATERAL PRIMARY OSTEOARTHRITIS ,RIGHT KNEE. Please see the progress note below for an update on the physical therapy plan of care! Subjective Subjective: Patient reports edema today . Patient has more snapping today Objective Objective/Function: Patient will benefit from skilled PT to decrease pain with patient making progress with increasing strength thus will benefit from skilled PT POSTURE: mild forward posture EDEMA: effusion medial/knee GAIT : reciprocal pattern antalgic gait Right side PALAPTION: tender medial /lateral joint line AROM: supine knee flexion 0-125 degrees supine FLEXIBILITY: hamstrings min tight MMT: ( peak force) right quads 35.7 ,hamstrings 26.8 ,hip flexion 25.1 ,hip abduction 19.8 ,ankle STAIRS: one step at a time Plan Plan Plan: Requesting 8 more visits CANDIDATE FOR RIGHT TKA PT INTERVENTIONS: ROM/FLEXIBILITY, STRENGTHENING QUADS/HAMS/HIP, FUNCTIONAL STRENGTHENING AND NUSTEP ADD ESTIM/CP Balance/Gait/Functional tests Balance/Special Test Scores Lower Extremity Functional Score: 32 Goals Goals Goal 1:: Patient to be I with HEP Goal Time Frame: 4-6 Weeks Goal Progress: Progressing Goal 2:: Patient to improve peak force quads/hams/hip by 5-10# to improve gait( new goal) Goal Time Frame: 4-6 Weeks Goal 3:: Patient to improve AROM supine knee flexion by 5 -10 degrees to improve stairs Goal Time Frame: 4-6 Weeks Goal Progress: Progressing Goal 4:: Patient to demonstrate 50% improvement with less pain and improve function Goal Time Frame: 4-6 Weeks Goal Progress: Progressing Goal 5:: Patient to improve LFES score by 5 points to improve QOL and function( new goal) Goal Time Frame: 4-6 Weeks Anticipated Interventions Anticipated Interventions Patient/Client Instruction: Educate patient on: Condition and Plan of Care For the Purpose of:: To decrease pain, To increase ROM, To improve muscle performance and motor function, To improve ability to perform ADL's, To increase tolerance to activity/condition/position, To improve ability of physical actions for home/community/work/leisure, To improve health of tissue, To decrease soft tissue restriction, To increase flexibility/ROM and To reduce risk of recurrence Therapeutic Exercise to Include: Strength training, Flexibilty training, Passive ROM and Active ROM Comment: QUADS/HAMS/HIP For the Purpose of:: To decrease pain, To increase ROM, To improve muscle performance and motor function, To improve ability to perform ADL's, To increase tolerance to activity/condition/position, To improve ability of physical actions for home/community/work/leisure, To improve health of tissue, To decrease soft tissue restriction, To increase flexibility/ROM, To improve endurance, To improve balance, To reduce risk of recurrence and To improve tolerance to ADL's TENS: Yes IF ES: Yes Cryotherapy (ice pack, ice massage): Yes Thermo therapy (hot pack): Yes Ultrasound (thermal/non thermal): Yes For the Purpose of:: To decrease pain, To increase ROM, To improve nutrient delivery to tissue, To increase oxygenation perfusion, To improve health of tissue and To decrease soft tissue restriction Re-Evaluation Ending Re-evaluation ending: Please do not hesitate to contact me at [phone] by phone or if you have questions or concerns regarding this new plan of care! Sincerely, Alicia Colunga PT, Cert MDT, [facility] 08/04/24 5850 CC: Dr. Jaret Fuller DO; Dr. Chemo Varma DO JLLuz Signed For Medicare only, by signing this I certify the plan of care. Physicians Signature Date Normal [facility] Orthopedic Visit Reporton Orthopedic Visit Report [facility] [address] [place] [address] [address] [place] [address] OFFICE VISIT Date of Service: 08/01/24 MR#: [id number] Acct: [id number] Name: AURELIO BHAKTA Rep #: [id number] : 1960 Provider: Dr. Chemo tolliver DO Age/Sex: 64/F Location: [facility] Status: Signed Intake Vital Signs 07/11/24 13:54 07/20/24 10:03 08/01/24 14:24 Height 5 ft 4 in 5 ft 4 in 5 ft 4 in Weight: 190 lb 187 lb BMI 32.5 32.1 BP 138/82 H Blood Pressure Location Lt brachial Position Sitting Respiration 18 Pulse 76 Pulse Source Monitor Temp 98.0 F Temp Source Temporal Pulse Oximetry (%) 98 Oxygen Delivery Method room air Intake Visit Reasons: RIGHT KNEE Chief Complaint: 2nd Euflexxa right knee Accompanied by: Self Is patient in pain?: Yes Pain scale (1-10): 6 Allergies hydrocodone Allergy (Verified 08/01/24 14:28) RASH Sulfa (Sulfonamide Antibiotics) Allergy (Verified 08/01/24 14:28) UNSURE meloxicam Adverse Reaction (Severe, Verified 08/01/24 14:28) facial swellling naproxen Adverse Reaction (Verified 08/01/24 14:28) Nausea trazodone Adverse Reaction (Verified 08/01/24 14:28) PT UNSURE OF REACTION TRAMADOL Adverse Reaction (Uncoded 08/01/24 14:28) Nausea Medications ???Medication ???Instructions ???Recorded ???Confirmed ???Type albuterol sulfate 90 mcg/actuation 2 puff inhalation Q6H PRN 08/01/24 Rx aerosol inhaler shortness of breath or wheezing #8.5 grams fluticasone fur. 100 mcg-umeclid 1 ea inhalation QDAY #28 ea 08/01/24 Rx 62.5 mcg-vilant 25 mcg inhalat.powder (Trelegy Ellipta) bumetanide 1 mg tablet 1 mg PO QDAY #90 tabs 03/28/24 Rx cholecalciferol (vitamin D3) 25 25 mcg PO QDAY #90 caps 03/28/24 0 08/01/24 Rx mcg (1,000 unit) capsule (Vitamin D3) esomeprazole magnesium 40 mg 40 mg PO QDAY #90 caps 03/28/24 Rx capsule,delayed release metoprolol succinate 25 mg 25 mg PO QDAY #90 tabs 03/28/24 Rx tablet,extended release 24 hr montelukast 10 mg tablet 10 mg PO QDAY #90 tabs 03/28/24 Rx rosuvastatin 10 mg tablet 10 mg PO QHS #90 tabs 03/28/24 Rx valsartan 80 mg tablet 80 mg PO QDAY #90 tabs 03/28/24 Rx hydroxyzine HCl 50 mg tablet 100 mg (2 x 50 mg) PO BID #90 tabs 05/25/24 08/01/24 Rx sennosides 8.6 mg-docusate sodium 1 tab-cap PO QHS #30 tabs 06/28/ 5 08/01/24 Rx 50 mg tablet mecobalamin (vitamin B12) 1,000 1,000 mcg PO QDAY 07/06/24 5 History mcg lozenges semaglutide 1 mg/dose (4 mg/3 mL) 1 mg (0.75 mL) subcut QWEEK #3 mL 07/20/24 08/01/24 Rx subcutaneous pen injector indomethacin 25 mg capsule 25 mg PO BID #60 caps 07/26/24 Rx Have you fallen in the past year?: Yes [facility] Medical History Groin cyst COPD (chronic obstructive pulmonary disease) Depression Cervical cancer Skin cancer IBS (irritable bowel syndrome) Hyperlipemia Hypertension Diabetes Carpal tunnel syndrome Cataracts, bilateral Arthritis Glaucoma Anal fissure Surgical History History of rectal surgery H/O: section S/P rotator cuff surgery Family History Sister Bleeding disorder Diabetes Epilepsy Father Heart disease Hypertension Bowel disease Mother Heart disease Hyperlipemia Social History adopted: No household members: none number of children: 3 current occupational status: retired pets and animals: Yes (2) pets and animals: fish sexually active: No Smoking Status: Current every day smoker tobacco type: cigarettes Tobacco: How many years used: 45 alcohol intake: never substance use type: does not use caffeine: Yes (2) Type: coffee what type of physical activity do you participate in: none do you feel safe at home: Yes HPI RIGHT KNEE Details: This documentation accurately reflects the service provided and the decisions made by me, Dr. Chemo Varma, DO 08/01/24 08. Part of today???s visit was documented by Heena Garcia MA, acting as scribe. AURELIO BHAKTA is a 64 year old F here today for 2nd Euflexxa right knee. Ortho Exam General General: Yes no acute distress Neurologic: Yes alert and Yes oriented x3 Psychologic: Yes reasonable and appropriate Right Knee Skin/Wound: Yes CDI, No erythema, No ecchymosis and No swelling Knee ROM: Yes ROM-Extension -20 to 0 and Yes ROM-Flexion 0-140 (110) Examination: Yes Med jt line tenderness, No Lat jt line tenderness, No TTP inf pole patella, Yes Crepitus, No Pain with (more content not included)... Normal [facility] Surgery Visit Reporton 07-[address] [facility] [address] [place] [address] OFFICE VISIT Date of Service: 07/26/24 MR#: [id number] Acct: [id number] Name: AURELIO BHAKTA Rep #: [id number] : 1960 Provider: Dr. Patience ramirez MD Age/Sex: 64/F Location: [facility] Status: Signed Intake Vital Signs 07/11/24 13:54 07/20/24 10:03 Height 5 ft 4 in 5 ft 4 in Weight: 190 lb BMI 32.5 BP 138/82 H Blood Pressure Location Lt brachial Position Sitting Respiration 18 Pulse 76 Pulse Source Monitor Temp 98.0 F Temp Source Temporal Pulse Oximetry (%) 98 Oxygen Delivery Method room air Intake Visit Reasons: EXCISION OF CYST Chief Complaint: Excision groin cyst Human Resources Assistant Required: No Accompanied by: [id number] Is patient in pain?: No Allergies hydrocodone Allergy (Verified 07/26/24 14:43) RASH Sulfa (Sulfonamide Antibiotics) Allergy (Verified 07/26/24 14:43) UNSURE meloxicam Adverse Reaction (Severe, Verified 07/26/24 14:43) facial swellling naproxen Adverse Reaction (Verified 07/26/24 14:43) Nausea trazodone Adverse Reaction (Verified 07/26/24 14:43) PT UNSURE OF REACTION TRAMADOL Adverse Reaction (Uncoded 07/26/24 14:43) Nausea Medications ???Medication ???Instructions ???Recorded ???Confirmed ???Type albuterol sulfate 90 mcg/actuation 2 puff inhalation Q6H PRN 07/26/24 Rx aerosol inhaler shortness of breath or wheezing #8.5 grams fluticasone fur. 100 mcg-umeclid 1 ea inhalation QDAY #28 ea 07/26/24 Rx 62.5 mcg-vilant 25 mcg inhalat.powder (Trelegy Ellipta) bumetanide 1 mg tablet 1 mg PO QDAY #90 tabs 03/28/24 Rx cholecalciferol (vitamin D3) 25 25 mcg PO QDAY #90 caps 03/28/24 0 07/26/24 Rx mcg (1,000 unit) capsule (Vitamin D3) esomeprazole magnesium 40 mg 40 mg PO QDAY #90 caps 03/28/24 Rx capsule,delayed release metoprolol succinate 25 mg 25 mg PO QDAY #90 tabs 03/28/24 Rx tablet,extended release 24 hr montelukast 10 mg tablet 10 mg PO QDAY #90 tabs 03/28/24 Rx rosuvastatin 10 mg tablet 10 mg PO QHS #90 tabs 03/28/24 Rx valsartan 80 mg tablet 80 mg PO QDAY #90 tabs 03/28/24 Rx hydroxyzine HCl 50 mg tablet 100 mg (2 x 50 mg) PO BID #90 tabs 05/25/24 07/26/24 Rx sennosides 8.6 mg-docusate sodium 1 tab-cap PO QHS #30 tabs 5 07/26/24 Rx 50 mg tablet mecobalamin (vitamin B12) 1,000 1,000 mcg PO QDAY 07/06/24 5 History mcg lozenges semaglutide 1 mg/dose (4 mg/3 mL) 1 mg (0.75 mL) subcut QWEEK #3 mL 07/20/24 07/26/24 Rx subcutaneous pen injector indomethacin 25 mg capsule 25 mg PO BID #60 caps 07/26/24 Rx Have you fallen in the past year?: No [facility] Medical History (Updated 07/28/24 @ 08:[address] Patience Mccarty MD) Groin cyst COPD (chronic obstructive pulmonary disease) Depression Cervical cancer Skin cancer IBS (irritable bowel syndrome) Hyperlipemia Hypertension Diabetes Carpal tunnel syndrome Cataracts, bilateral Arthritis Glaucoma Anal fissure Surgical History History of rectal surgery H/O: section S/P rotator cuff surgery Family History Sister Bleeding disorder Diabetes Epilepsy Father Heart disease Hypertension Bowel disease Mother Heart disease Hyperlipemia Social History adopted: No household members: none number of children: 3 current occupational status: retired pets and animals: Yes (2) pets and animals: fish sexually active: No Smoking Status: Current every day smoker tobacco type: cigarettes Tobacco: How many years used: 45 alcohol intake: never substance use type: does not use caffeine: Yes (2) Type: coffee what type of physical activity do you participate in: none do you feel safe at home: Yes HPI HPI HPI: 64-year-old female presents for right mons cyst excision. Patient is unable to feel the 1 on her left mons currently also unable to locate with bedside ultrasound ROS General General: No weight change, appetite, fatigue, colon cancer, breast cancer or weakness HEENT HEENT: No difficulty swallowing, eye injury, eye surgery, swollen glands or hoarseness Endo Endocrine: Yes diabetes mellitus; No thyroid disease, thyroid cancer, Hair loss, heat intolerance or cold intolerance Skin Skin: No rash or changing moles Musc Musculoskeletal: Yes back problems and arthritis; No rheumatoid arthritis, gout or joint pain Cardio Cardiovascular: Yes high blood pressure; No murmur, pacemaker, heart disease, atrial fibrillation, heart attack, heart stent, palpitations, s (more content not included)... Normal [facility] Orthopedic Visit Reporton Orthopedic Visit Report [facility] [address] [place] [address] OFFICE VISIT Date of Service: 07/25/24 MR#: [id number] Acct: [id number] Name: AURELIO BHAKTA Rep #: [id number] : 1960 Provider: Dr. hCemo tolliver DO Age/Sex: 64/F Location: [facility] Status: Signed Intake Vital Signs 07/11/24 13:54 07/20/24 10:03 Height 5 ft 4 in 5 ft 4 in Weight: 187 lb 8 oz 190 lb BMI 32.1 32.5 BP 103/69 138/82 H Blood Pressure Location Rt brachial Lt brachial Position Sitting Sitting Respiration 18 18 Pulse 73 76 Pulse Source Monitor Monitor Temp 97.2 F L 98.0 F Temp Source Temporal Temporal Pulse Oximetry (%) 99 98 Oxygen Delivery Method room air room air Intake Visit Reasons: RIGHT KNEE Allergies hydrocodone Allergy (Verified 07/25/24 14:33) RASH Sulfa (Sulfonamide Antibiotics) Allergy (Verified 07/25/24 14:33) UNSURE meloxicam Adverse Reaction (Severe, Verified 07/25/24 14:33) facial swellling naproxen Adverse Reaction (Verified 07/25/24 14:33) Nausea trazodone Adverse Reaction (Verified 07/25/24 14:33) PT UNSURE OF REACTION TRAMADOL Adverse Reaction (Uncoded 07/25/24 14:33) Nausea Medications ???Medication ???Instructions ???Recorded ???Confirmed ???Type albuterol sulfate 90 mcg/actuation 2 puff inhalation Q6H PRN 07/25/24 Rx aerosol inhaler shortness of breath or wheezing #8.5 grams fluticasone fur. 100 mcg-umeclid 1 ea inhalation QDAY #28 ea 07/25/24 Rx 62.5 mcg-vilant 25 mcg inhalat.powder (Trelegy Ellipta) bumetanide 1 mg tablet 1 mg PO QDAY #90 tabs 03/28/24 Rx cholecalciferol (vitamin D3) 25 25 mcg PO QDAY #90 caps 03/28/24 0 07/25/24 Rx mcg (1,000 unit) capsule (Vitamin D3) esomeprazole magnesium 40 mg 40 mg PO QDAY #90 caps 03/28/24 Rx capsule,delayed release metoprolol succinate 25 mg 25 mg PO QDAY #90 tabs 03/28/24 Rx tablet,extended release 24 hr montelukast 10 mg tablet 10 mg PO QDAY #90 tabs 03/28/24 Rx rosuvastatin 10 mg tablet 10 mg PO QHS #90 tabs 03/28/24 Rx valsartan 80 mg tablet 80 mg PO QDAY #90 tabs 03/28/24 Rx hydroxyzine HCl 50 mg tablet 100 mg (2 x 50 mg) PO BID #90 tabs 05/25/24 07/25/24 Rx sennosides 8.6 mg-docusate sodium 1 tab-cap PO QHS #30 tabs 06/28/ 5 07/25/24 Rx 50 mg tablet mecobalamin (vitamin B12) 1,000 1,000 mcg PO QDAY 04/02/25 04/21/2 5 History mcg lozenges indomethacin 25 mg capsule 25 mg PO BID #20 caps 07/20/24 Rx semaglutide 1 mg/dose (4 mg/3 mL) 1 mg (0.75 mL) subcut QWEEK #3 mL 07/20/24 07/25/24 Rx subcutaneous pen injector Have you fallen in the past year?: Yes [facility] Medical History COPD (chronic obstructive pulmonary disease) Depression Cervical cancer Skin cancer IBS (irritable bowel syndrome) Hyperlipemia Hypertension Diabetes Carpal tunnel syndrome Cataracts, bilateral Arthritis Glaucoma Anal fissure Surgical History History of rectal surgery H/O: section S/P rotator cuff surgery Family History Sister Bleeding disorder Diabetes Epilepsy Father Heart disease Hypertension Bowel disease Mother Heart disease Hyperlipemia Social History adopted: No household members: none number of children: 3 current occupational status: retired pets and animals: Yes (2) pets and animals: fish sexually active: No Smoking Status: Current every day smoker tobacco type: cigarettes Tobacco: How many years used: 45 alcohol intake: never substance use type: does not use caffeine: Yes (2) Type: coffee what type of physical activity do you participate in: none do you feel safe at home: Yes HPI RIGHT KNEE Details: This documentation accurately reflects the service provided and the decisions made by me, Dr. Chemo Varma, DO 07/25/24 0803. Part of today???s visit was documented by Sharon CHAMBERS, acting as scribe. AURELIO BHAKTA is a 64 year old F here today for 1st right knee Euflexxa injection. Patient started indomethacin 07/20 for chronic arthritis. Ortho Exam General General: Yes no acute distress Neurologic: Yes alert and Yes oriented x3 Psychologic: Yes reasonable and appropriate Right Knee Skin/Wound: Yes CDI, No erythema, No ecchymosis and No swelling Knee ROM: Yes ROM-Extension -20 to 0 and Yes ROM-Flexion 0-140 (110) Examination: Yes Med jt line tenderness, No Lat jt line tenderness, No TTP inf pole patella, Yes Crepitus, No Pain with flexion, No Pain with extention and Yes Hernandez's Stability: NML (more content not included)... Normal [facility] Internal Medicine Office Vis césar 07-20-2024 Internal Medicine Office Visit [facility] [address] [place] [address] [place] [address] OFFICE VISIT Date of Service: 07/20/24 MR#: [id number] Acct: [id number] Name: AURELIO BHAKTA Rep #: [id number] : 1960 Provider: Dr. Jaret fajardo, DO Age/Sex: 64/F Location: [facility] Status: Signed Intake Vital Signs 01/19/24 11:45 07/11/24 13:54 07/20/24 10:03 Height 5 ft 4 in 5 ft 4 in 5 ft 4 in Weight: 190 lb BMI 32.5 BP 138/82 H Blood Pressure Location Lt brachial Position Sitting Respiration 18 Pulse 76 Pulse Source Monitor Temp 98.0 F Temp Source Temporal Pulse Oximetry (%) 98 Oxygen Delivery Method room air Intake Visit Reasons: 3 M FU Chief Complaint: 3 M FU Is patient in pain?: Yes (7 all over ) Allergies hydrocodone Allergy (Verified 07/20/24 10:04) RASH Sulfa (Sulfonamide Antibiotics) Allergy (Verified 07/20/24 10:04) UNSURE meloxicam Adverse Reaction (Severe, Verified 07/20/24 10:04) facial swellling naproxen Adverse Reaction (Verified 07/20/24 10:04) Nausea trazodone Adverse Reaction (Verified 07/20/24 10:04) PT UNSURE OF REACTION TRAMADOL Adverse Reaction (Uncoded 07/20/24 10:04) Nausea Medications ???Medication ???Instructions ???Recorded ???Confirmed ???Type albuterol sulfate 90 mcg/actuation 2 puff inhalation Q6H PRN 07/20/24 Rx aerosol inhaler shortness of breath or wheezing #8.5 grams fluticasone fur. 100 mcg-umeclid 1 ea inhalation QDAY #28 ea 07/20/24 Rx 62.5 mcg-vilant 25 mcg inhalat.powder (Trelegy Ellipta) bumetanide 1 mg tablet 1 mg PO QDAY #90 tabs 03/28/24 Rx cholecalciferol (vitamin D3) 25 25 mcg PO QDAY #90 caps 03/28/24 0 07/20/24 Rx mcg (1,000 unit) capsule (Vitamin D3) esomeprazole magnesium 40 mg 40 mg PO QDAY #90 caps 03/28/24 Rx capsule,delayed release metoprolol succinate 25 mg 25 mg PO QDAY #90 tabs 03/28/24 Rx tablet,extended release 24 hr montelukast 10 mg tablet 10 mg PO QDAY #90 tabs 03/28/24 Rx rosuvastatin 10 mg tablet 10 mg PO QHS #90 tabs 03/28/24 Rx valsartan 80 mg tablet 80 mg PO QDAY #90 tabs 03/28/24 Rx hydroxyzine HCl 50 mg tablet 100 mg (2 x 50 mg) PO BID #90 tabs 05/25/24 07/20/24 Rx sennosides 8.6 mg-docusate sodium 1 tab-cap PO QHS #30 tabs 06/28/ 5 07/20/24 Rx 50 mg tablet mecobalamin (vitamin B12) 1,000 1,000 mcg PO QDAY 07/06/24 5 History mcg lozenges indomethacin 25 mg capsule 25 mg PO BID #20 caps 07/20/24 Rx semaglutide 1 mg/dose (4 mg/3 mL) 1 mg (0.75 mL) subcut QWEEK #3 mL 07/20/24 07/20/24 Rx subcutaneous pen injector Have you fallen in the past year?: Yes (x2) Nurse's Note: pt reports that she feels she is gaining weight [facility] Medical History COPD (chronic obstructive pulmonary disease) Depression Cervical cancer Skin cancer IBS (irritable bowel syndrome) Hyperlipemia Hypertension Diabetes Carpal tunnel syndrome Cataracts, bilateral Arthritis Glaucoma Anal fissure Surgical History History of rectal surgery H/O: section S/P rotator cuff surgery Family History Sister Bleeding disorder Diabetes Epilepsy Father Heart disease Hypertension Bowel disease Mother Heart disease Hyperlipemia Social History adopted: No household members: none number of children: 3 current occupational status: retired pets and animals: Yes (2) pets and animals: fish sexually active: No Smoking Status: Current every day smoker tobacco type: cigarettes Tobacco: How many years used: 45 alcohol intake: never substance use type: does not use caffeine: Yes (2) Type: coffee what type of physical activity do you participate in: none do you feel safe at home: Yes HPI HPI Chief Complaint: 3 M FU Details: AURELIO BHAKTA, is a 64 F who presents to the office today for a follow-up exam. She is not losing weight on her current dosage of Ozempic. She did see the orthopedic surgeon and is set to have gel injections in her right knee. She also saw a general surgeon and she is going to excise the lipomas in the mons pubis. ROS Const Constitutional: No body ache, chills, excessive sweating, fatigue, fever(s), frequent falls, headache(s), snoring, weight change, sleep problems, abnormal sleep pattern or change in appetite Eyes Eyes: No blurry vision, change in vision, eye pain or Light sensitivity ENT ENT: No abnormal hearing, ear or mastoid pain, tinnitus, nasal congestion, headache(s), neck pain or sore throat Resp (more content not included)... Normal [facility] Inital Evaluation (1) - PTon 07-15-2024 Inital Evaluation (1) - PT [facility] Physical Therapy [facility] [place] [address] / REHABILITATION SERVICES INITIAL EVALUATION MR#: [id number] Acct: [id number] Name: AURELIO BHAKTA Rep #: [id number] : 1960 64 From: Alicia Colunga PT, Cert. MD [place], OCS Referring Dr.: Dr. Chemo Varma DO Status: R EG RCR Insurance: [facility] [employer] MEDICAID Patient's Visit Information Visit Information Visit Information: AURELIO BAHKTA is a 64 year old F referred to Physical Therapy by Dr. Chemo Varma DO with a diagnosis of UNILATERAL PRIMARY OSTEOARTHRITIS ,RIGHT KNEE. Date of Evaluation: 07/15/24 Physical Therapist: Alicia Colunga PT, Cert MDT, OCS Visit Plan Frequency: 2x /Week Duration: 6 Weeks Plan: CANDIDATE FOR TKA RIGHT KNEE PT INTERVENTIONS ROM/FLEXABILITY ,STRENGTHENING QUADS/HAMS/HIP ,FUNCTIONAL STRENGTHENING AND NUSTEP Subjective Subjective: This 64 y/o female presents to physical therapy with right knee pain due to OA . Patient has had left knee pain many years . Patient seen DR Varma recommended PT and and recommend and viscosupplementation injections. Patient has x-rays showed Severe degenerative changes Tricompartmental narrowing . Patient has had cortisone injection at [facility] . Patient DR recommend TKA . Patient pain located global knee . Patient symptoms described as sore sharp pain. Pain can affects sleeping. Patient aggravating stairs ,extended walking and unable to squat and kneel. Alleviating factors nothing . Patient c/o paresthesia in knee. Patient condition affects QOL and function/gait. Patient goals to decrease pain VOCATION: retired SOCIAL: seperated Pain Left Knee: Pain Intensity (Out of 10): 7 Pain Intensity Range: 10 Comment: rest ,increases to 10/10 with walking Objective Objective: POSTURE: mild forward posture GAIT : reciprocal pattern antalgic gait Right side PALAPTION: tender medial /lateral joint line AROM: supine knee flexion 0-125 degrees supine FLEXIBILITY: hamstrings min tight MMT: ( peak force) right quads 18.8 ,hamstrings 14.2 ,hip flexion 23.1 ,hip abduction 16.8 ,ankle STAIRS: one step at a time Balance/Special Test Scores Lower Extremity Functional Score: 26 Goals Goal 1:: Patient to be I with HEP Goal Time Frame: 4-6 Weeks Goal 2:: Patient to improve peak force quads/hams/hip by 5-10# to improve gait Goal Time Frame: 4-6 Weeks Goal 3:: Patient to improve AROM supine knee flexion by 5 -10 degrees to improve stairs Goal Time Frame: 4-6 Weeks Goal 4:: Patient to demonstrate 50% improvement with less pain and improve function Goal Time Frame: 4-6 Weeks Goal 5:: Patient to improve LFES score by 5 points to improve QOL and function Goal Time Frame: 4-6 Weeks Rehabilitation Potential Physical Therapy Diagnosis: This patient has has severe DJD with pain ,decrease ROM ,weakness impairs gait and stairs this benefit from skilled PT Rehabilitation Potential: Good Anticipated Interventions Patient/Client Instruction: Educate patient on: Condition and Plan of Care For the Purpose of:: To decrease pain, To increase ROM, To improve muscle performance and motor function, To improve ability to perform ADL's, To increase tolerance to activity/condition/position, To improve ability of physical actions for home/community/work/leisure, To improve health of tissue, To decrease soft tissue restriction, To increase flexibility/ROM and To reduce risk of recurrence Therapeutic Exercise to Include: Strength training, Flexibilty training, Passive ROM and Active ROM Comment: QUADS/HAMS/HIP For the Purpose of:: To decrease pain, To increase ROM, To improve muscle performance and motor function, To improve ability to perform ADL's, To increase tolerance to activity/condition/position, To improve ability of physical actions for home/community/work/leisure, To improve health of tissue, To decrease soft tissue restriction, To increase flexibility/ROM, To improve endurance, To improve balance, To reduce risk of recurrence and To improve tolerance to ADL's TENS: Yes IF ES: Yes Cryotherapy (ice pack, ice massage): Yes Thermo therapy (hot pack): Yes Ultrasound (thermal/non thermal): Yes For the Purpose of:: To decrease pain, To increase ROM, To improve nutrient delivery to tissue, To increase oxygenation perfusion, To improve health of tissue and To decrease soft tissue restriction Text: Thank you for the opportunity to evaluate your patient. For Medicare and Medicare HMO plans, please review the plan of care and approve it. It will need to be FAXED BACK to us at [phone] for Medicare purposes. For Medicare only, by signing this I certify the plan of care. Please let me know if there are questions or concerns regarding this plan of care. Physician Signature: (more content not included)... Normal [facility] VISUAL FIELD 24-2 OU (BOTH E YES)on 07-12-2024 [facility] Radiology Study observation (narrative) [facility] Surgery Visit Reporton 07-11 Surgery Visit Report [facility] [address] [place], [place] [id number] OFFICE VISIT Date of Service: 07/11/24 MR#: [id number] Acct: [id number] Name: AURELIO BHAKTA Rep #: [id number] : 1960 Provider: Dr. Patience ramirez MD Age/Sex: 64/F Location: [facility] Status: Signed Intake Vital Signs 07/05/24 14:52 07/06/24 13:33 07/11/24 13:54 Height 5 ft 4 in 5 ft 4 in 5 ft 4 in Weight: 186 lb 4 oz 183 lb 8 oz 187 lb 8 oz BMI 31.9 31.4 32.1 BP 118/74 103/69 Blood Pressure Location Lt brachial Rt brachial Position Sitting Sitting Respiration 16 18 Pulse 76 73 Pulse Source Monitor Monitor Temp 96.7 F L 97.2 F L Temp Source Temporal Temporal Pulse Oximetry (%) 90 99 Oxygen Delivery Method room air room air Intake Visit Reasons: CYST ON MON PUBIS Chief Complaint: cyst on mon pubis Is patient in pain?: No Allergies hydrocodone Allergy (Verified 07/11/24 13:55) RASH Sulfa (Sulfonamide Antibiotics) Allergy (Verified 07/11/24 13:55) UNSURE meloxicam Adverse Reaction (Severe, Verified 07/11/24 13:55) facial swellling naproxen Adverse Reaction (Verified 07/11/24 13:55) Nausea trazodone Adverse Reaction (Verified 07/11/24 13:55) PT UNSURE OF REACTION TRAMADOL Adverse Reaction (Uncoded 07/11/24 13:55) Nausea Medications ???Medication ???Instructions ???Recorded ???Confirmed ???Type lidocaine 5 % topical cream 1 applic topical TID PRN pain #15 01/24/23 07/11/24 Rx (RectiCare) grams albuterol sulfate 90 mcg/actuation 2 puff inhalation Q6H PRN 07/11/24 Rx aerosol inhaler shortness of breath or wheezing #8.5 grams fluticasone fur. 100 mcg-umeclid 1 ea inhalation QDAY #28 ea 07/11/24 Rx 62.5 mcg-vilant 25 mcg inhalat.powder (Trelegy Ellipta) semaglutide 0.25 mg or 0.5 mg (2 0.5 mg (0.736 mL) subcut QWEEK #3 03/16/24 07/11/24 Rx mg/3 mL) subcutaneous pen injector mL (Ozempic) bumetanide 1 mg tablet 1 mg PO QDAY #90 tabs 03/28/2410/28 Rx cholecalciferol (vitamin D3) 25 25 mcg PO QDAY #90 caps 03/28/24 0 07/11/24 Rx mcg (1,000 unit) capsule (Vitamin D3) esomeprazole magnesium 40 mg 40 mg PO QDAY #90 caps 03/28/24 Rx capsule,delayed release metoprolol succinate 25 mg 25 mg PO QDAY #90 tabs 03/28/24 Rx tablet,extended release 24 hr montelukast 10 mg tablet 10 mg PO QDAY #90 tabs 03/28/24 Rx rosuvastatin 10 mg tablet 10 mg PO QHS #90 tabs 03/28/2410/28 Rx valsartan 80 mg tablet 80 mg PO QDAY #90 tabs 03/28/24 Rx hydroxyzine HCl 50 mg tablet 100 mg PO BID 04/20/24 07/11/24 Hi story hydroxyzine HCl 50 mg tablet 100 mg (2 x 50 mg) PO BID #90 tabs 05/25/24 07/11/24 Rx sennosides 8.6 mg-docusate sodium 1 tab-cap PO QHS #30 tabs 06/28/ 5 07/11/24 Rx 50 mg tablet mecobalamin (vitamin B12) 1,000 1,000 mcg PO QDAY 07/06/24 5 History mcg lozenges Have you fallen in the past year?: No [facility] Medical History COPD (chronic obstructive pulmonary disease) Depression Cervical cancer Skin cancer IBS (irritable bowel syndrome) Hyperlipemia Hypertension Diabetes Carpal tunnel syndrome Cataracts, bilateral Arthritis Glaucoma Anal fissure Surgical History History of rectal surgery H/O: section S/P rotator cuff surgery Family History Sister Bleeding disorder Diabetes Epilepsy Father Heart disease Hypertension Bowel disease Mother Heart disease Hyperlipemia Social History adopted: No household members: none number of children: 3 current occupational status: retired pets and animals: Yes (2) pets and animals: fish sexually active: No Smoking Status: Current every day smoker tobacco type: cigarettes Tobacco: How many years used: 45 alcohol intake: never substance use type: does not use caffeine: Yes (2) Type: coffee what type of physical activity do you participate in: none do you feel safe at home: Yes HPI HPI HPI: 64-year-old female presents due to noticing cyst on her mons for about the last week. Patient denies any pain. Patient denies any infection, inflammation or discharge from this area. ROS General General: No weight change, appetite, fatigue, colon cancer, breast cancer or weakness HEENT HEENT: No difficulty swallowing, eye injury, eye surgery, swollen glands or hoarseness Endo Endocrine: Yes diabetes mellitus; No thyroid disease, thyroid cancer, Hair loss, heat intolerance or cold intolerance Skin Skin: No rash or changing moles Musc Mus (more content not included)... Normal [facility] Knee 4 or More Viewson 07-06 Knee 4 or More Views [facility] [address] [place] [address] Knee 4 or More Views MR#: [id number] Acct: [id number] Name: AURELIO BHAKTA Rep #: [id number] : 1960 F 64 From: Puja Truong DO PCP: Dr. Jaret Fuller, DO Status: DEP AMB Study: Knee 4 or More Views Date of Exam: 07/06/24 Exam# [id number] Ordering Dr: Chemo Varma DO PROCEDURE: KNEE 4 OR MORE VIEWS 07/06/2024 REASON FOR EXAM: CHRONIC KNEE PAIN, TECHNIQUE: 4 views of the right knee COMPARISON: None FINDINGS: Bones: No fracture. No suspicious bone lesion. Joints: Severe degenerative changes. Tricompartmental narrowing. Effusion: Small joint effusion. Soft tissues: Soft tissue swelling. Other: RAD/Knee 4 or More Views IMPRESSION: Severe osteoarthritic changes with small suprapatellar joint effusion and soft tissue swelling. No acute fracture. Reading Location: [facility] CC: Dr. Jaret Fuller DO; Dr. Chemo Varma DO Commander Internal Affairs: Signed Normal [facility] Orthopedic Visit Reporton Orthopedic Visit Report [facility] [address] [place] [address] OFFICE VISIT Date of Service: 07/06/24 MR#: [id number] Acct: [id number] Name: AURELIO BHAKTA Rep #: [id number] : 1960 Provider: Dr. Chemo tolliver DO Age/Sex: 64/F Location: [facility] Status: Signed Intake Vital Signs 07/05/24 14:52 07/06/24 13:33 Height 5 ft 4 in 5 ft 4 in Weight: 183 lb 8 oz BMI 31.4 Intake Visit Reasons: RIGHT KNEE Chief Complaint: Right knee pain Accompanied by: Self Is patient in pain?: Yes Pain scale (1-10): 7 Allergies hydrocodone Allergy (Verified 07/06/24 13:35) RASH Sulfa (Sulfonamide Antibiotics) Allergy (Verified 07/06/24 13:35) UNSURE meloxicam Adverse Reaction (Severe, Verified 07/06/24 13:35) facial swellling naproxen Adverse Reaction (Verified 07/06/24 13:35) Nausea trazodone Adverse Reaction (Verified 07/06/24 13:35) PT UNSURE OF REACTION TRAMADOL Adverse Reaction (Uncoded 07/06/24 13:35) Nausea Medications ???Medication ???Instructions ???Recorded ???Confirmed ???Type lidocaine 5 % topical cream 1 applic topical TID PRN pain #15 01/24/23 07/06/24 Rx (RectiCare) grams albuterol sulfate 90 mcg/actuation 2 puff inhalation Q6H PRN 07/06/24 Rx aerosol inhaler shortness of breath or wheezing #8.5 grams fluticasone fur. 100 mcg-umeclid 1 ea inhalation QDAY #28 ea 07/06/24 Rx 62.5 mcg-vilant 25 mcg inhalat.powder (Trelegy Ellipta) semaglutide 0.25 mg or 0.5 mg (2 0.5 mg (0.736 mL) subcut QWEEK #3 03/16/24 07/06/24 Rx mg/3 mL) subcutaneous pen injector mL (Ozempic) bumetanide 1 mg tablet 1 mg PO QDAY #90 tabs 03/28/2405/31 Rx cholecalciferol (vitamin D3) 25 25 mcg PO QDAY #90 caps 03/28/24 0 07/06/24 Rx mcg (1,000 unit) capsule (Vitamin D3) esomeprazole magnesium 40 mg 40 mg PO QDAY #90 caps 03/28/24 Rx capsule,delayed release metoprolol succinate 25 mg 25 mg PO QDAY #90 tabs 03/28/24 Rx tablet,extended release 24 hr montelukast 10 mg tablet 10 mg PO QDAY #90 tabs 03/28/24 Rx rosuvastatin 10 mg tablet 10 mg PO QHS #90 tabs 03/28/2405/31 Rx valsartan 80 mg tablet 80 mg PO QDAY #90 tabs 03/28/24 Rx hydroxyzine HCl 50 mg tablet 100 mg PO BID 04/20/24 07/06/24 Hi story hydroxyzine HCl 50 mg tablet 100 mg (2 x 50 mg) PO BID #90 tabs 05/25/24 07/06/24 Rx sennosides 8.6 mg-docusate sodium 1 tab-cap PO QHS #30 tabs 5 07/06/24 Rx 50 mg tablet mecobalamin (vitamin B12) 1,000 1,000 mcg PO QDAY 07/06/24 5 History mcg lozenges Have you fallen in the past year?: Yes PFSH Medical History COPD (chronic obstructive pulmonary disease) Depression Cervical cancer Skin cancer IBS (irritable bowel syndrome) Hyperlipemia Hypertension Diabetes Carpal tunnel syndrome Cataracts, bilateral Arthritis Glaucoma Anal fissure Surgical History History of rectal surgery H/O: section S/P rotator cuff surgery Family History Sister Bleeding disorder Diabetes Epilepsy Father Heart disease Hypertension Bowel disease Mother Heart disease Hyperlipemia Social History adopted: No household members: none number of children: 3 current occupational status: retired pets and animals: Yes (2) pets and animals: fish sexually active: No Smoking Status: Current every day smoker tobacco type: cigarettes Tobacco: How many years used: 45 alcohol intake: never substance use type: does not use caffeine: Yes (2) Type: coffee what type of physical activity do you participate in: none do you feel safe at home: Yes HPI RIGHT KNEE Details: This documentation accurately reflects the service provided and the decisions made by me, Dr. Chemo Varma, DO 07/06/24 1331. Part of today???s visit was documented by Heena Garcia MA, acting as scribe. AURELIO BHAKTA is a 64 year old F with a medical history significant for but not limited to nicotine dependence, COPD, hypertension, diabetes here today for right knee pain. Patient is having pain in both legs, but the right leg hurts a lot worse. This has been going on for over a year ago. Dr. Taylor at the Clinic stated that this is caused by old age and maybe some arthritis. . She got a cortisone shot about 91 days ago at the [facility]. The cortisone shot made it worse. The pain is nagging ache. The pain is worse when walking, bending it, or crossing the leg over. It feels like there is inflammation in the knee. Denies any mcdaniel (more content not included)... Normal [facility] Internal Medicine Office Vis iton 07-05-2024 Internal Medicine Office Visit [facility] [address] [place] [address] [place] [address] OFFICE VISIT Date of Service: 07/05/24 MR#: [id number] Acct: [id number] Name: AURELIO BHAKTA Rep #: [id number] : 1960 Provider: Dr. Jaret fajrado, DO Age/Sex: 64/F Location: [facility] Status: Signed Intake Vital Signs 07/05/24 14:52 Height 5 ft 4 in Weight: 186 lb 4 oz BMI 31.9 BP 118/74 Blood Pressure Location Lt brachial Position Sitting Respiration 16 Pulse 76 Pulse Source Monitor Temp 96.7 F L Temp Source Temporal Pulse Oximetry (%) 90 Oxygen Delivery Method room air Intake Visit Reasons: discuss referrals Chief Complaint: dermatology and OB Human Resources Assistant Required: No Accompanied by: Self Is patient in pain?: No Allergies hydrocodone Allergy (Verified 07/05/24 14:50) RASH Sulfa (Sulfonamide Antibiotics) Allergy (Verified 07/05/24 14:50) UNSURE meloxicam Adverse Reaction (Severe, Verified 07/05/24 14:50) facial swellling naproxen Adverse Reaction (Verified 07/05/24 14:50) Nausea trazodone Adverse Reaction (Verified 07/05/24 14:50) PT UNSURE OF REACTION TRAMADOL Adverse Reaction (Uncoded 07/05/24 14:50) Nausea Medications ???Medication ???Instructions ???Recorded ???Confirmed ???Type lidocaine 5 % topical cream 1 applic topical TID PRN pain #15 01/24/23 07/05/24 Rx (RectiCare) grams albuterol sulfate 90 mcg/actuation 2 puff inhalation Q6H PRN 07/05/24 Rx aerosol inhaler shortness of breath or wheezing #8.5 grams fluticasone fur. 100 mcg-umeclid 1 ea inhalation QDAY #28 ea 07/05/24 Rx 62.5 mcg-vilant 25 mcg inhalat.powder (Trelegy Ellipta) semaglutide 0.25 mg or 0.5 mg (2 0.5 mg (0.736 mL) subcut QWEEK #3 03/16/24 07/05/24 Rx mg/3 mL) subcutaneous pen injector mL (Ozempic) bumetanide 1 mg tablet 1 mg PO QDAY #90 tabs 03/28/2404/30 Rx cholecalciferol (vitamin D3) 25 25 mcg PO QDAY #90 caps 03/28/24 0 07/05/24 Rx mcg (1,000 unit) capsule (Vitamin D3) esomeprazole magnesium 40 mg 40 mg PO QDAY #90 caps 03/28/24 Rx capsule,delayed release metoprolol succinate 25 mg 25 mg PO QDAY #90 tabs 03/28/24 Rx tablet,extended release 24 hr montelukast 10 mg tablet 10 mg PO QDAY #90 tabs 03/28/24 Rx rosuvastatin 10 mg tablet 10 mg PO QHS #90 tabs 03/28/2404/30 Rx valsartan 80 mg tablet 80 mg PO QDAY #90 tabs 03/28/24 Rx hydroxyzine HCl 50 mg tablet 100 mg PO BID 04/20/24 07/05/24 Hi story hydroxyzine HCl 50 mg tablet 100 mg (2 x 50 mg) PO BID #90 tabs 05/25/24 07/05/24 Rx sennosides 8.6 mg-docusate sodium 1 tab-cap PO QHS #30 tabs 06/28/2 5 07/05/24 Rx 50 mg tablet Have you fallen in the past year?: No PFSH Medical History COPD (chronic obstructive pulmonary disease) Depression Cervical cancer Skin cancer IBS (irritable bowel syndrome) Hyperlipemia Hypertension Diabetes Carpal tunnel syndrome Cataracts, bilateral Arthritis Glaucoma Anal fissure Surgical History History of rectal surgery H/O: section S/P rotator cuff surgery Family History Sister Bleeding disorder Diabetes Epilepsy Father Heart disease Hypertension Bowel disease Mother Heart disease Hyperlipemia Social History adopted: No household members: none number of children: 3 current occupational status: retired pets and animals: Yes (2) pets and animals: fish sexually active: No Smoking Status: Current every day smoker tobacco type: cigarettes Tobacco: How many years used: 45 alcohol intake: never substance use type: does not use caffeine: Yes (2) Type: coffee what type of physical activity do you participate in: none do you feel safe at home: Yes HPI HPI Chief Complaint: dermatology and OB Details: AURELIO BHAKTA, is a 64 F who presents to the office today for a pigmented lesion on her chest that she wants looked at and a 3 cm lump in the right groin that she wants removed. ROS Const Constitutional: No body ache, excessive sweating, fatigue, fever(s), frequent falls, headache(s), snoring, weakness, weight change, sleep problems or change in appetite Eyes Eyes: No blurry vision, change in vision, eye pain or Light sensitivity ENT ENT: No abnormal hearing, ear or mastoid pain, tinnitus, nasal congestion, headache(s), neck pain or sore throat Resp Respiratory: No cough, shortness of breath, snoring or wheezing Cardio Cardiology: No chest pain at rest, chest pain with exertion, excessive sweating, shortness of breath, dyspnea on exertion, lightheadedne (more content not included)... Normal [facility] Internal Medicine Office Vis césar 05-25-2024 Internal Medicine Office Visit [facility] [address] [place], [place] [address] OFFICE VISIT Date of Service: 05/25/24 MR#: [id number] Acct: [id number] Name: AURELIO BHAKTA Rep #: [id number] : 1960 Provider: Dr. Jaret fajardo, DO Age/Sex: 64/F Location: [facility] Status: Signed Intake Vital Signs 01/19/24 11:45 05/25/24 10:59 05/25/24 11:23 Height 5 ft 4 in 5 ft 4 in Weight: 185 lb BMI 31.7 BP 124/82 H Blood Pressure Location Lt brachial Position Sitting Respiration 18 Pulse 53 L Pulse Source Monitor Temp 96.8 F L Temp Source Temporal Pulse Oximetry (%) 93 Oxygen Delivery Method room air Intake Visit Reasons: SEVERE ABDOMINAL PAIN Chief Complaint: SEVERE ABDOMINAL PAIN Human Resources Assistant Required: No Accompanied by: Self Is patient in pain?: No Allergies hydrocodone Allergy (Verified 05/25/24 11:14) RASH Sulfa (Sulfonamide Antibiotics) Allergy (Verified 05/25/24 11:14) UNSURE meloxicam Adverse Reaction (Severe, Verified 05/25/24 11:14) facial swellling naproxen Adverse Reaction (Verified 05/25/24 11:14) Nausea trazodone Adverse Reaction (Verified 05/25/24 11:14) PT UNSURE OF REACTION TRAMADOL Adverse Reaction (Uncoded 05/25/24 11:14) Nausea Medications ???Medication ???Instructions ???Recorded ???Confirmed ???Type lidocaine 5 % topical cream 1 applic topical TID PRN pain #15 01/24/23 04/20/24 Rx (RectiCare) grams albuterol sulfate 90 mcg/actuation 2 puff inhalation Q6H PRN 05/25/24 Rx aerosol inhaler shortness of breath or wheezing #8.5 grams fluticasone fur. 100 mcg-umeclid 1 ea inhalation QDAY #28 ea 05/25/24 Rx 62.5 mcg-vilant 25 mcg inhalat.powder (Trelegy Ellipta) semaglutide 0.25 mg or 0.5 mg (2 0.5 mg (0.736 mL) subcut QWEEK #3 03/16/24 05/25/24 Rx mg/3 mL) subcutaneous pen injector mL (Ozempic) bumetanide 1 mg tablet 1 mg PO QDAY #90 tabs 03/28/24 Rx cholecalciferol (vitamin D3) 25 25 mcg PO QDAY #90 caps 03/28/24 0 05/25/24 Rx mcg (1,000 unit) capsule (Vitamin D3) esomeprazole magnesium 40 mg 40 mg PO QDAY #90 caps 03/28/24 Rx capsule,delayed release metoprolol succinate 25 mg 25 mg PO QDAY #90 tabs 03/28/24 Rx tablet,extended release 24 hr montelukast 10 mg tablet 10 mg PO QDAY #90 tabs 03/28/24 Rx rosuvastatin 10 mg tablet 10 mg PO QHS #90 tabs 03/28/24 Rx valsartan 80 mg tablet 80 mg PO QDAY #90 tabs 03/28/24 Rx hydroxyzine HCl 50 mg tablet 100 mg PO BID 04/20/24 05/25/24 Hi story sennosides 8.6 mg-docusate sodium 1 tab-cap PO QHS #30 tabs 5 05/25/24 Rx 50 mg tablet hydroxyzine HCl 50 mg tablet 100 mg (2 x 50 mg) PO BID #90 tabs 05/25/24 05/25/24 Rx Have you fallen in the past year?: No Nurse's Note: pt reports that a couple weeks ago she had 2 episodes of severe ABD pain in her ovary area states each episode was about 20 min in duration. pt denies any nausea. pt states it has not happened since and she does not have pain at this time. states the ovary pain spread across her ABD and is still julia sore [facility] Medical History COPD (chronic obstructive pulmonary disease) Depression Cervical cancer Skin cancer IBS (irritable bowel syndrome) Hyperlipemia Hypertension Diabetes Carpal tunnel syndrome Cataracts, bilateral Arthritis Glaucoma Anal fissure Surgical History History of rectal surgery H/O: section S/P rotator cuff surgery Family History Sister Bleeding disorder Diabetes Epilepsy Father Heart disease Hypertension Bowel disease Mother Heart disease Hyperlipemia Social History adopted: No household members: none number of children: 3 current occupational status: retired pets and animals: Yes (2) pets and animals: fish sexually active: No Smoking Status: Current every day smoker tobacco type: cigarettes Tobacco: How many years used: 45 alcohol intake: never substance use type: does not use caffeine: Yes (2) Type: coffee what type of physical activity do you participate in: none do you feel safe at home: Yes HPI HPI Chief Complaint: SEVERE ABDOMINAL PAIN Details: AURELIO BHAKTA, is a 64 F who presents to the office today for 2 episodes of abdominal pain lasted about 20 minutes. Pain started on the left side and radiated to the right side. When she got up and started walking the pain eased off. She has been taking her Lesly-Colace and that solved her constipation problems. I think the constipation is problems were caused by the Ozempic. ROS (more content not included)... Normal [facility] CBC W/Diff, Automatedon 04-07 Absolute Lymph 4.59 X10 3/uL High 0.83-4.51 [facility] Comment on above: Performed By: #### L 100.0100 ####[facility] [address] [facility] [place], [address] Absolute Neut 7.0 X10 3/uL Normal 2.0-7.7 [facility] Comment on above: Performed By: #### L 100.0100 ####[facility] [address] [facility] [place], [address] Basophils/100 WBC (Bld) 0.4 % Normal 0-1 [facility] Comment on above: Performed By: #### L 100.0100 ####[facility] [address] [facility] [place], [address] Eosinophils/100 WBC (Bld) 2.7 % Normal 0-5 [facility] Comment on above: Performed By: #### L 100.0100 ####[facility] [address] [facility] [place], [address] Erythrocyte distribution width (RBC) [Ratio] 13.4 % Normal 11.6-14.6 [facility] Comment on above: Performed By: #### L 100.0100 ####[facility] [address] [place], [address] Hematocrit (Bld) [Volume fraction] 42.0 % Normal 37-47 [facility] Comment on above: Performed By: #### L 100.0100 ####[facility] [address] [place], [address] Hemoglobin (Bld) [Mass/Vol] 13.7 g/dL Normal 12.0-15.0 [facility] Comment on above: Performed By: #### L 100.0100 ####[facility] [address] [place], [address] IG% 0.500 Normal 0.0-0.9 [facility] Comment on above: Result Comment: IG% - Immature Granulocytes (promyelocytes, myelocytes and metamyelocytes) > 1% indicates that a LEFT SHIFT is Present. Performed By: #### L 100.0100 ####[facility] [address] [place], [address] Lymphocytes/100 WBC (Bld) 35.4 % Normal 19-41 [facility] Comment on above: Performed By: #### L 100.0100 ####[facility] [address] [place], [address] MCH (RBC) [Entitic mass] 28.0 pg Normal 27.0-32.0 [facility] Comment on above: Performed By: #### L 100.0100 ####[facility] [address] [place], [address] MCHC (RBC) [Mass/Vol] 32.6 g/dL Normal 32-36 [facility] Comment on above: Performed By: #### L 100.0100 ####[facility] [address] [place], [address] MCV (RBC) [Entitic vol] 85.9 fL Normal 81-99 [facility] Comment on above: Performed By: #### L 100.0100 ####[facility] [address] [place], [address] Monocytes/100 WBC (Bld) 6.8 % Normal 0-10 [facility] Comment on above: Performed By: #### L 100.0100 ####[facility] [address] [place], [address] Neutrophils/100 WBC (Bld) 54.2 % Normal 47-70 [facility] Comment on above: Performed By: #### L 100.0100 ####[facility] [address] [place], [address] Nucleated RBC (Bld) [#/Vol] 0 10*3/uL Normal 0-5 [facility] Comment on above: Performed By: #### L 100.0100 ####[facility] [address] [place], [address] Platelet mean volume (Bld) [Entitic vol] 9.7 fL Normal 6.2-12.0 [facility] Comment on above: Performed By: #### L 100.0100 ####[facility] [address] [place], [address] Platelets (Bld) [#/Vol] 325 10*3/uL Normal 150-450 [facility] Comment on above: Performed By: #### L 100.0100 ####[facility] [address] [place], [address] RBC (Bld) [#/Vol] 4.89 10*6/uL Normal 4.2-5.4 [facility] Comment on above: Performed By: #### L 100.0100 ####[facility] [address] [place], [address] RDW SD 42.1 fl Normal 35.1-43.9 [facility] Comment on above: Performed By: #### L 100.0100 ####[facility] [address] [place], [address] WBC (Bld) [#/Vol] 13.0 10*3/uL High 4.4-11.0 [facility] Comment on above: Performed By: #### L 100.0100 ####[facility] [address] [place], [address] CBC W/Diff, Automatedon 04-06 Absolute Lymph 1.62 X10 3/uL Normal 0.83-4.51 [facility] Comment on above: Performed By: #### L 100.0100, L506.1000, L500.4050 ####[facility] [address] [place], [address] Absolute Neut 15.8 X10 3/uL High 2.0-7.7 [facility] Comment on above: Performed By: #### L 100.0100, L506.1000, L500.4050 ####[facility] [address] [place], [address] Basophils/100 WBC (Bld) 0.2 % Normal 0-1 [facility] Comment on above: Performed By: #### L 100.0100, L506.1000, L500.4050 ####[facility] [address] [place], [address] Eosinophils/100 WBC (Bld) 0.0 % Normal 0-5 [facility] Comment on above: Performed By: #### L 100.0100, L506.1000, L500.4050 ####[facility] [address] [place], [address] Erythrocyte distribution width (RBC) [Ratio] 14.1 % Normal 11.6-14.6 [facility] Comment on above: Performed By: #### L 100.0100, L506.1000, L500.4050 ####[facility] [address] [place], [address] Hematocrit (Bld) [Volume fraction] 44.1 % Normal 37-47 [facility] Comment on above: Performed By: #### L 100.0100, L506.1000, L500.4050 ####[facility] [address] [place], [address] Hemoglobin (Bld) [Mass/Vol] 14.3 g/dL Normal 12.0-15.0 [facility] Comment on above: Performed By: #### L 100.0100, L506.1000, L500.4050 ####[facility] [address] [place], [address] IG% 0.900 Normal 0.0-0.9 [facility] Comment on above: Result Comment: IG% - Immature Granulocytes (promyelocytes, myelocytes and metamyelocytes) > 1% indicates that a LEFT SHIFT is Present. Performed By: #### L 100.0100, L506.1000, L500.4050 ####[facility] [address] [place], [address] Lymphocytes/100 WBC (Bld) 8.8 % Low 19-41 [facility] Comment on above: Performed By: #### L 100.0100, L506.1000, L500.4050 ####[facility] [address] [place], [address] MCH (RBC) [Entitic mass] 28.2 pg Normal 27.0-32.0 [facility] Comment on above: Performed By: #### L 100.0100, L506.1000, L500.4050 ####[facility] [address] [place], [address] MCHC (RBC) [Mass/Vol] 32.4 g/dL Normal 32-36 [facility] Comment on above: Performed By: #### L 100.0100, L506.1000, L500.4050 ####[facility] [address] [place], [address] MCV (RBC) [Entitic vol] 87.0 fL Normal 81-99 [facility] Comment on above: Performed By: #### L 100.0100, L506.1000, L500.4050 ####[facility] [address] [place], [address] Monocytes/100 WBC (Bld) 4.1 % Normal 0-10 [facility] Comment on above: Performed By: #### L 100.0100, L506.1000, L500.4050 ####[facility] [address] [place], [address] Neutrophils/100 WBC (Bld) 86.0 % High 47-70 [facility] Comment on above: Performed By: #### L 100.0100, L506.1000, L500.4050 ####[facility] [address] [place], [address] Nucleated RBC (Bld) [#/Vol] 0 10*3/uL Normal 0-5 [facility] Comment on above: Performed By: #### L 100.0100, L506.1000, L500.4050 ####[facility] [address] [place], [address] Platelet mean volume (Bld) [Entitic vol] 10.4 fL Normal 6.2-12.0 [facility] Comment on above: Performed By: #### L 100.0100, L506.1000, L500.4050 ####[facility] [address] [place], [address] Platelets (Bld) [#/Vol] 348 10*3/uL Normal 150-450 [facility] Comment on above: Performed By: #### L 100.0100, L506.1000, L500.4050 ####[facility] [address] [place], [address] RBC (Bld) [#/Vol] 5.07 10*6/uL Normal 4.2-5.4 [facility] Comment on above: Performed By: #### L 100.0100, L506.1000, L500.4050 ####[facility] [address] [place], [address] RDW SD 44.7 fl High 35.1-43.9 [facility] Comment on above: Performed By: #### L 100.0100, L506.1000, L500.4050 ####[facility] [address] [place], [address] WBC (Bld) [#/Vol] 18.4 10*3/uL High 4.4-11.0 [facility] Comment on above: Performed By: #### L 100.0100, L506.1000, L500.4050 ####[facility] [address] [place], [address] Comprehensive Metabolic Prof [facility] 04-20-2024 Albumin [Mass/Vol] 4.2 g/dL Normal 3.2-5.0 [facility] Comment on above: Performed By: #### L 100.0100, L506.1000, L500.4050 ####[facility] [address] [place], [address] Albumin/Globulin [Mass ratio] 1.1 {ratio} Normal 0.9-2.4 [facility] Comment on above: Performed By: #### L 100.0100, L506.1000, L500.4050 ####[facility] [address] [place], [address] ALK P 66 U/L Normal 45-117 [facility] Comment on above: Performed By: #### L 100.0100, L506.1000, L500.4050 ####[facility] [address] [place], [address] ALT [Catalytic activity/Vol] 37 U/L Normal 13-56 [facility] Comment on above: Performed By: #### L 100.0100, L506.1000, L500.4050 ####[facility] [address] [place], [address] AST [Catalytic activity/Vol] 18 U/L Normal 15-37 [facility] Comment on above: Performed By: #### L 100.0100, L506.1000, L500.4050 ####[facility] [address] [place], [address] Bilirubin [Mass/Vol] 0.30 mg/dL Normal 0.20-1.00 [facility] Comment on above: Result Comment: For patients on eltrombopag therapy, use of Dimension [place] TBIL is not recommended. Performed By: #### L 100.0100, L506.1000, L500.4050 ####[facility] [address] [place], [address] BUN/CRE 27.7 RATIO High 10-20 [facility] Comment on above: Performed By: #### L 100.0100, L506.1000, L500.4050 ####[facility] [address] [place], [address] CA,Total 10.4 mg/dL High 8.5-10.1 [facility] Comment on above: Performed By: #### L 100.0100, L506.1000, L500.4050 ####[facility] [address] [place], [address] Chloride [Moles/Vol] 104 mmol/L Normal 98-107 [facility] Comment on above: Performed By: #### L 100.0100, L506.1000, L500.4050 ####[facility] [address] [place], [address] CO2 [Moles/Vol] 30.0 mmol/L Normal 21.0-32.0 [facility] Comment on above: Performed By: #### L 100.0100, L506.1000, L500.4050 ####[facility] [address] [place], [address] Creatinine [Mass/Vol] 1.01 mg/dL Normal 0.55-1.02 [facility] Comment on above: Result Comment: The validity of the calculated GFR GFRAA in patients over 70 years has not been determined. Clinical correlation is essential. Performed By: #### L 100.0100, L506.1000, L500.4050 ####[facility] [address] [place], [address] EST GFR - AA 71 mL/min Normal >60 [facility] Comment on above: Result Comment: Afri can [place] GFR Calc Performed By: #### L 100.0100, L506.1000, L500.4050 ####[facility] [address] [place], [address] GAP 4 Low 5-15 [facility] Comment on above: Performed By: #### L 100.0100, L506.1000, L500.4050 ####[facility] [address] [place], [address] GFR/1.73 sq M.predicted among non-blacks MDRD (S/P/Bld) [Vol rate/Area] 58 mL/min/{1.73_m2} Low >60 [facility] Comment on above: Result Comment: Non- GFR Calc Performed By: #### L 100.0100, L506.1000, L500.4050 ####[facility] [address] [place], [address] Globulin (S) [Mass/Vol] 3.8 g/dL Normal 2.2-4.2 [facility] Comment on above: Performed By: #### L 100.0100, L506.1000, L500.4050 ####[facility] [address] [place], [address] Glucose [Mass/Vol] 107 mg/dL High 74-106 [facility] Comment on above: Result Comment: Fast ing Glucose result from 100 to 125 mg/dL suggests IMPAIRED HOMEOSTASIS per A.D.A. criteria. Performed By: #### L 100.0100, L506.1000, L500.4050 ####[facility] [address] [place], [address] Potassium [Moles/Vol] 4.4 mmol/L Normal 3.5-5.1 [facility] Comment on above: Performed By: #### L 100.0100, L506.1000, L500.4050 ####[facility] [address] [place], [address] Sodium [Moles/Vol] 138 mmol/L Normal 136-145 [facility] Comment on above: Performed By: #### L 100.0100, L506.1000, L500.4050 ####[facility] [address] [place], [address] T PROT 8.0 g/dL Normal 6.4-8.2 [facility] Comment on above: Performed By: #### L 100.0100, L506.1000, L500.4050 ####[facility] [address] [place], [address] Urea nitrogen [Mass/Vol] 28 mg/dL High 7-18 [facility] Comment on above: Performed By: #### L 100.0100, L506.1000, L500.4050 ####[facility] [address] [place], [address] Internal Medicine Office Vis césar 04-20-2024 Internal Medicine Office Visit [facility] [address] [place] [address] [place] [address] OFFICE VISIT Date of Service: 04/20/24 MR#: [id number] Acct: [id number] Name: AURELIO BHAKTA Rep #: [id number] : 1960 Provider: Dr. Jaret fajardo, DO Age/Sex: 64/F Location: [facility] Status: Signed Intake Vital Signs 01/19/24 11:45 Height 5 ft 4 in Weight: 191 lb BMI 32.8 BP 132/82 H Blood Pressure Location Lt brachial Position Sitting Respiration 20 H Pulse 83 Pulse Source Monitor Temp 97.5 F L Temp Source Temporal Pulse Oximetry (%) 93 Oxygen Delivery Method room air Intake Visit Reasons: 3 m fu Chief Complaint: 3m fu Human Resources Assistant Required: No Accompanied by: Self Is patient in pain?: Yes (abd) Pain scale (1-10): 8 Allergies hydrocodone Allergy (Verified 04/20/24 11:38) RASH Sulfa (Sulfonamide Antibiotics) Allergy (Verified 04/20/24 11:38) UNSURE meloxicam Adverse Reaction (Severe, Verified 04/20/24 11:45) facial swellling naproxen Adverse Reaction (Verified 04/20/24 11:38) Nausea trazodone Adverse Reaction (Verified 04/20/24 11:38) PT UNSURE OF REACTION TRAMADOL Adverse Reaction (Uncoded 04/20/24 11:38) Nausea Medications ???Medication ???Instructions ???Recorded ???Confirmed ???Type lidocaine 5 % topical cream 1 applic topical TID PRN pain #15 01/24/23 04/20/24 Rx ([facility]) grams albuterol sulfate 90 mcg/actuation 2 puff inhalation Q6H PRN 03/05/24 04/20/24 Rx aerosol inhaler shortness of breath or wheezing #8.5 grams fluticasone fur. 100 mcg-umeclid 1 ea inhalation QDAY #28 ea 03/05/24 04/20/24 Rx 62.5 mcg-vilant 25 mcg inhalat.powder (Trelegy Ellipta) semaglutide 0.25 mg or 0.5 mg (2 0.5 mg (0.736 mL) subcut QWEEK #3 12/11/24 01/15/25 Rx mg/3 mL) subcutaneous pen injector mL (Ozempic) bumetanide 1 mg tablet 1 mg PO QDAY #90 tabs 03/28/24 04/20/24 Rx cholecalciferol (vitamin D3) 25 25 mcg PO QDAY #90 caps 03/28/24 04/20/24 Rx mcg (1,000 unit) capsule (Vitamin D3) esomeprazole magnesium 40 mg 40 mg PO QDAY #90 caps 03/28/24 04/20/24 Rx capsule,delayed release metoprolol succinate 25 mg 25 mg PO QDAY #90 tabs 03/28/24 04/20/24 Rx tablet,extended release 24 hr montelukast 10 mg tablet 10 mg PO QDAY #90 tabs 03/28/24 04/20/24 Rx rosuvastatin 10 mg tablet 10 mg PO QHS #90 tabs 03/28/24 04/20/24 Rx valsartan 80 mg tablet 80 mg PO QDAY #90 tabs 03/28/24 04/20/24 Rx hydroxyzine HCl 50 mg tablet 100 mg PO BID 04/20/24 History sennosides 8.6 mg-docusate sodium 1 tab-cap PO QHS #30 tabs 04/20/24 04/20/24 Rx 50 mg tablet Have you fallen in the past year?: No PFSH Medical History COPD (chronic obstructive pulmonary disease) Depression Cervical cancer Skin cancer IBS (irritable bowel syndrome) Hyperlipemia Hypertension Diabetes Carpal tunnel syndrome Cataracts, bilateral Arthritis Glaucoma Anal fissure Surgical History History of rectal surgery H/O: section S/P rotator cuff surgery Family History Sister Bleeding disorder Diabetes Epilepsy Father Heart disease Hypertension Bowel disease Mother Heart disease Hyperlipemia Social History adopted: No household members: none number of children: 3 current occupational status: retired pets and animals: Yes (2) pets and animals: fish sexually active: No Smoking Status: Current every day smoker tobacco type: cigarettes Tobacco: How many years used: 45 alcohol intake: never substance use type: does not use caffeine: Yes (2) Type: coffee what type of physical activity do you participate in: none do you feel safe at home: Yes HPI HPI Chief Complaint: 3m fu Details: AURELIO BHAKTA, is a 64 F who presents to the office today for a follow-up exam on her diabetes and concerns about problems with constipation alternating with diarrhea. ROS Const Constitutional: Positive for weakness, weight change and abnormal sleep pattern; No body ache, chills, excessive sweating, fatigue, fever(s), frequent falls, headache(s), snoring or change in appetite Eyes Eyes: No blurry vision, change in vision, eye pain or Light sensitivity ENT ENT: No abnormal hearing, ear or mastoid pain, tinnitus, nasal congestion, headache(s), neck pain or sore throat Resp Respiratory: No cough, shortness of breath, snoring or wheezing Cardio Cardiology: No chest pain at rest, chest pain with exertion, excessive sweating, dyspnea on exertion, lightheadedness, orthopnea or palpitations Gastro GI: Positive for abdominal pain, bloating, change in bowel habits, change in stool character, constipatio (more content not included)... Normal [facility] Vitamin D,25 Hydroxyon 04-20 Vitamin D 25-OH 32.2 ng/mL Normal [facility] Comment on above: Result Comment: Loyda min D 25(OH) Status Range Deficiency <20 ng/mL (50nmol/L) Insufficiency 20 - 30 ng/mL (50 - 75 nmol/L) Sufficiency 30 - 100 ng/mL (75 - 250 nmol/L) Toxicity >100 ng/mL (>250 nmol/L) Performed By: #### L 100.0100, L506.1000, L500.4050 ####[facility] [address] [place], [address] CNOVon 04-18-2024 CNOV Office Visit (ORTHWS ) NICHOAURELIO BEVERLY ([id number]) 1960 F LV Date Time Provider Department 04/18/24 11:30 AM KENIA THAO During your visit today, we recorded the following information about you: Madalyn Castro LPN 04/18/2024 11:36 AM Signed AMB ROOMING INTAKE FLOWSHEET DATA Pain Pain Level: 3 Pain Location: Knee-Right Description: Sore Duration Units: Months Frequency: Intermittent Intervention/Comfort measure: Relaxation, Reposition, Medication Patient presents with: Right Knee - Established Patient, Injections: 15 weeks post injection YUNIEL Uribe Sondra, PA-C 04/18/2024 11:36 AM Signed Large Joint Arthro/Inj: R knee joint Informed Consent Consent Obtained: Verbal [place] Protocol A moment to CARE was completed. SIGN IN Sign in communication not applicable due to emergent procedure. Personnel directly involved with the procedure wore the appropriate PPE. Special Equipment: N/A Patient/Surrogate Stated/Verified: Patient name, Date of , Relevant allergies and Intended procedure TIME OUT Relevant labs, photos, and/or imaging studies have been reviewed. Intended patient and procedure match the source document(s). Consent documented and matches the intended procedure. Correct side/site marked and visible. Medications required for procedure verified. No fire risk assessment and interventions applicable. No implant(s) inserted.04/18/2024 11:35 AM The procedure site was prepped in the usual sterile fashion. Site: R knee joint Medications: 6 mg betamethasone acetate-betamethasone sodium phosphate 6 mg/mL Anesthetics: 5 mL lidocaine (PF) 10 mg/mL (1 %) Outcome: Tolerated well, no immediate complications Post-injection instructions were reviewed with the patient and the patient voiced understanding of these instructions. SIGN OUT No specimen collected. All instruments, equipment, possible retained foreign bodies accounted for. Post-procedure follow-up management communicated and Plan of Care Visit completed when applicable Referring Provider: RAFAEL TAYLOR [[id number]] Allergies As of Date: 04/18/2024 Noted Allergy Reaction HYDROCODONE 11/29/2021 11 - Vomiting NAPROXEN 11/29/2021 10 - Anaphylaxis SULFA (SULFONAMIDE ANTIBIOTICS) 11/29/2021 14 - Other: See Comments 2 - Rash TRAMADOL 11/29/2021 4 - Hives 2 - Rash TRAZODONE 11/29/2021 4 - Hives 2 - Rash Date Reviewed: 04/18/2024 Reviewed by: Madalyn Castro LPN - Fully Assessed Reason for Visit: Established Patient [175] Cmt: 15 weeks post injection Injections [199] Cmt: 15 weeks post injection Primary Visit Diagnosis:Primary osteoarthritis of right knee [M17.11] Order(s):Large Joint Arthro/Inj: R knee joint [WSA090] Order #: [id number] [] betamethasone acetate-betamethasone sodium phosphate 6 mg injection (CELESTONE)Disp: Rfl: [] lidocaine (PF) 10 mg/mL (1 %) 5 mL injection (XYLOCAINE)Disp: Rfl: Prescriptions as of 04/18/2024 - semaglutide (OZEMPIC) 0.25 mg or 0.5 mg (2 mg/3 mL) pen Inject 0.25 mg subcutaneously one time a week. - TRELEGY ELLIPTA 100-62.5-25 mcg inhalation powder Inhale 1 Puff as instructed once daily. - hydrOXYzine HCl (ATARAX) 50 mg tablet Take 1 tablet by mouth four times a day as needed for anxiety. - esomeprazole (NEXIUM) 40 mg capsule Take 1 capsule by mouth once daily. - metoprolol succinate ER (TOPROL XL) 25 mg 24 hr tablet Take 1 tablet by mouth once daily. - Cholecalciferol, Vitamin D3, (VITAMIN D) 25 mcg (1,000 unit) cap Take 1 capsule by mouth once daily. - predniSONE (DELTASONE) 10 mg tablet 6 tabs po day 1, then 5 tabs day 2, 4 tabs day 3, 3 tabs day 4, 2 tabs day 5, 1 tab day 6. - emollient combination no.117 (EUCERIN ADVANCED REPAIR HAND) crea Apply 1 mg to affected area once daily as needed. - bumetanide (BUMEX) 1 mg tablet Take 1 tablet by mouth once daily. - albuterol HFA (PROVENTIL HFA, VENTOLIN HFA) 90 mcg/actuation inhaler Inhale 2 Puffs as instructed every 6 hours as needed. - valsartan (DIOVAN) 80 mg tablet Take 1 tablet by mouth once daily. - bumetanide (BUMEX) 1 mg tablet Take 1 tablet by mouth once daily. - montelukast (SINGULAIR) 10 mg tablet Take 1 tablet by mouth daily at bedtime. - rosuvastatin (CRESTOR) 10 mg tablet Take 1 tablet by mouth once daily. - ferrous sulfate 325 mg (65 mg iron) tablet Take by mouth. Problem List As Of Date 04/18/2024 Noted Resolved Type 2 diabetes mellitus without complication, *01/16/2022 Class 2 severe obesity due to excess calories w*05/23/2022 Disorder of right rotator cuff [M67.911] 06/30/2022 Obesity, Class I, BMI 30-34.9 [E66.811] 08/27/2022 Chronic obstructive pulmonary disease, unspecif*08/21/2023 Depression, major, single episode, moderate (HC*08/21/2023 Prescriptions ordered this encounter Disp Refills Start End BETAMETHASONE ACETATE AND SO (more content not included)... Normal [facility] Large Joint Arthro/Inj: R kn ee jointon 04-18-2024 Kenia Thao PA -C 04/18/2024 11:36 AM Large Joint Arthro/Inj: R knee joint Informed Consent Consent Obtained: Verbal [place] Protocol A moment to CARE was completed. SIGN IN Sign in communication not applicable due to emergent procedure. Personnel directly involved with the procedure wore the appropriate PPE. Special Equipment: N/A Patient/Surrogate Stated/Verified: Patient name, Date of , Relevant allergies and Intended procedure TIME OUT Relevant labs, photos, and/or imaging studies have been reviewed. Intended patient and procedure match the source document(s). Consent documented and matches the intended procedure. Correct side/site marked and visible. Medications required for procedure verified. No fire risk assessment and interventions applicable. No implant(s) inserted.04/18/2024 11:35 AM The procedure site was prepped in the usual sterile fashion. Site: R knee joint Medications: 6 mg betamethasone acetate-betamethasone sodium phosphate 6 mg/mL Anesthetics: 5 mL lidocaine (PF) 10 mg/mL (1 %) Outcome: Tolerated well, no immediate complications Post-injection instructions were reviewed with the patient and the patient voiced understanding of these instructions. SIGN OUT No specimen collected. All instruments, equipment, possible retained foreign bodies accounted for. Post-procedure follow-up management communicated and Plan of Care Visit completed when applicable [facility] CT LUNG SCREEN WO IVCONon CT LUNG SCREEN WO IVCON * * *Final Report* * * DATE OF EXAM: Jan 29 2024 11:16AM [facility] 0562 - CT LUNG SCREEN WO IVCON / PROCEDURE REASON: multiple diagnoses * * * * Physician Interpretation * * * * EXAMINATION: CHEST CT WITHOUT CONTRAST (LOW-DOSE CT LUNG CANCER SCREENING PROTOCOL) CLINICAL HISTORY: Lung cancer LDCT screening ? absence of signs or symptoms of lung cancer. Nicotine dependence (cigarettes). Baseline (initial) Technique: Spiral CT acquisition of the chest from the thoracic inlet to the upper abdomen without contrast. MQ: CTLCS_6 Patient characteristics: * Shve-wh-Eikhv: 1960; Age at exam: 63 years * Gender: Female * Lung Disease: Asymptomatic (no signs or symptoms of lung disease) * Number of Pack Years: 50 * Current smoker (=0) or Number of Years since Quit: 0 * Ordering provider and NPI: ALMAS CORDERO [id number] * Interpreting radiologist and NPI: Luigi [id number] Exam acquisition parameters: * Exam Date: 01/29/2024 11:16 AM * Site: [facility] * * CT System Reporting Manager: Gig[employer] * CT System Model: Sensation * Tube Current-Time (mA-sec): 32 * Peak Voltage (kV): 120V * Scan Time (sec): 10.82 * Scan Volume (z-length, cm): -28.75 * Pitch: 0.75 * Slice Thickness (mm): 1.5 * CT Dose-Length Product: 98 mGy*cm * CT Dose Index: 2.45mGy * CT Dose Reduction Method: Automated exposure control(AEC) and iterative recon COMPARISON: 05/30/2021. RESULT: Are nodules present? Yes, 1-5 nodules Nodule 1: This Perifissural nodule is located in the on slice number 111 with an average diameter of 8.9 mm (11.4 mm x 6.4 mm). Nodule 2: This Perifissural nodule is located in the on slice number 144 with an average diameter of 3.1 mm (4.4 mm x 1.8 mm). Other lung nodule comments: None. Other findings: The central airways are patent without endobronchial lesion. There is moderate upper lobe predominant centrilobular emphysema with diffuse bronchial wall thickening. Linear atelectasis in the lower lobes. No consolidation. No pleural effusion. No thoracic lymphadenopathy. The cardiac chambers are normal in size noting lipomatous hypertrophy of interatrial septum. Mild aortic cusp calcification. No pericardial effusion or pericardial thickening. Degenerative changes from the thoracic spine. Hepatic steatosis. No acute abnormality in the imaged upper abdomen. Emphysema: Moderate, centrilobular, upper lobe Coronary Artery Calcifications: None. Localizer images: No additional findings. IMPRESSION: LungRADS category: 2 LungRADS modifier: None LungRADS 0 reason: n/a Recommendations: Continue annual screening with LDCT in 12 months. Other actionable findings: Reference: [employer]. Lung CT Screening Reporting and Data System (Lung-RADS). Available at: http://www.acr.org/Quality-S afety/Resources/LungRADS Commander Internal Affairs: NATSAHA Transcribe Date/Time: Jan 30 2024 9:59A Dictated by : LEAH HERNANDEZ MD This examination was interpreted and the report reviewed and electronically signed by: LEAH HERNANDEZ MD on Jan 30 2024 10:06AM EST [id number] Normal [facility] [place] 01-21-2024 DEISY Telephone ([facility]) BRACKAURELIO BEVERLY ([id number]) 1960 F LV Date Time Provider Department 01/21/24 SHRUTHI DOLAN During your visit today, we recorded the following information about you: Jagdeep Orozco 01/21/2024 3:07 PM Signed Patient lab results for the last 6 months faxed to the [facility] office per patient request at [phone]. Jagdeep Orozco, [employer] January 21, 2024 3:06 PM Allergies As of Date: 01/21/2024 Noted Allergy Reaction HYDROCODONE 11/29/2021 11 - Vomiting NAPROXEN 11/29/2021 10 - Anaphylaxis SULFA (SULFONAMIDE ANTIBIOTICS) 11/29/2021 14 - Other: See Comments 2 - Rash TRAMADOL 11/29/2021 4 - Hives 2 - Rash TRAZODONE 11/29/2021 4 - Hives 2 - Rash Date Reviewed: 01/15/2024 Reviewed by: Shiela Daniel MA - Fully Assessed Reason for Visit: Patient Question [1477] Cmt: Lab results Prescriptions as of 01/21/2024 - hydrOXYzine HCl (ATARAX) 50 mg tablet Take 1 tablet by mouth four times a day as needed for anxiety. - esomeprazole (NEXIUM) 40 mg capsule Take 1 capsule by mouth once daily. - metoprolol succinate ER (TOPROL XL) 25 mg 24 hr tablet Take 1 tablet by mouth once daily. - Cholecalciferol, Vitamin D3, (VITAMIN D) 25 mcg (1,000 unit) cap Take 1 capsule by mouth once daily. - semaglutide (OZEMPIC) 0.25 mg or 0.5 mg (2 mg/3 mL) pen Inject 0.25 mg subcutaneously one time a week. - predniSONE (DELTASONE) 10 mg tablet 6 tabs po day 1, then 5 tabs day 2, 4 tabs day 3, 3 tabs day 4, 2 tabs day 5, 1 tab day 6. - Melatonin 5 mg cap Take 1 capsule by mouth daily at bedtime. - hydrocortisone 2.5 % cream Apply 1 application to affected area two times a day. - emollient combination no.117 (EUCERIN ADVANCED REPAIR HAND) crea Apply 1 mg to affected area once daily as needed. - TRELEGY ELLIPTA 100-62.5-25 mcg inhalation powder Inhale 1 Puff as instructed once daily. - bumetanide (BUMEX) 1 mg tablet Take 1 tablet by mouth once daily. - albuterol HFA (PROVENTIL HFA, VENTOLIN HFA) 90 mcg/actuation inhaler Inhale 2 Puffs as instructed every 6 hours as needed. - valsartan (DIOVAN) 80 mg tablet Take 1 tablet by mouth once daily. - bumetanide (BUMEX) 1 mg tablet Take 1 tablet by mouth once daily. - buPROPion SR (WELLBUTRIN SR) 150 mg 12 hr tablet TAKE 1 TABLET ONCE DAILY FOR 3 DAYS, THEN 1 TABLET TWICE DAILY THEREAFTER, BEGIN 2 WEEKS PRIOR TO QUIT DATE. - bumetanide (BUMEX) 1 mg tablet Take 1.5 tablets by mouth once daily. - montelukast (SINGULAIR) 10 mg tablet Take 1 tablet by mouth daily at bedtime. - rosuvastatin (CRESTOR) 10 mg tablet Take 1 tablet by mouth once daily. - ferrous sulfate 325 mg (65 mg iron) tablet Take by mouth. Problem List As Of Date 01/21/2024 Noted Resolved Type 2 diabetes mellitus without complication, *01/16/2022 Class 2 severe obesity due to excess calories w*05/23/2022 Disorder of right rotator cuff [M67.911] 06/30/2022 Obesity, Class I, BMI 30-34.9 [E66.811] 08/27/2022 Chronic obstructive pulmonary disease, unspecif*08/21/2023 Depression, major, single episode, moderate (HC*08/21/2023 Encounter Status:Closed by JAGDEEP OROZCO on 01/21/24 Normal [facility] Internal Medicine Office Vis césar 01-19-2024 Internal Medicine Office Visit [facility] [address] [place] [address] [place] [address] OFFICE VISIT Date of Service: 01/19/24 MR#: [id number] Acct: [id number] Name: AURELIO BHAKTA Rep #: [id number] : 1960 Provider: Dr. Jaret R Br own, DO Age/Sex: 63/F Location: [facility] Status: Signed Intake Vital Signs 01/24/23 14:37 01/19/24 11:45 Height 5 ft 4 in 5 ft 4 in Weight: 191 lb BMI 32.8 BP 132/82 H Blood Pressure Location Lt brachial Position Sitting Respiration 20 H Pulse 83 Pulse Source Monitor Temp 97.5 F L Temp Source Temporal Pulse Oximetry (%) 93 Oxygen Delivery Method room air Intake Visit Reasons: EST NEW PT - [facility]WK SENT Chief Complaint: Establish care with a new physician in the [place] area. Human Resources Assistant Required: No Is patient in pain?: No Allergies hydrocodone Allergy (Verified 01/19/24 11:39) RASH Sulfa (Sulfonamide Antibiotics) Allergy (Verified 01/19/24 11:39) UNSURE naproxen Adverse Reaction (Verified 01/19/24 11:39) Nausea trazodone Adverse Reaction (Verified 01/19/24 11:39) PT UNSURE OF REACTION TRAMADOL Adverse Reaction (Uncoded 01/19/24 11:39) Nausea Medications ???Medication ???Instructions ???Recorded ???Confirmed ???Type lidocaine 5 % topical cream 1 applic topical TID PRN pain #15 01/24/23 Rx ([facility]) grams bumetanide 1 mg tablet 1 mg PO QDAY 01/19/24 01/19/24 History cholecalciferol (vitamin D3) 25 25 mcg PO QDAY 01/19/24 01/19/24 History mcg (1,000 unit) capsule (Vitamin D3) esomeprazole magnesium 40 mg 40 mg PO QDAY 01/19/24 01/19/24 History capsule,delayed release fluticasone fur. 100 mcg-umeclid 1 ea inhalation QDAY 01/19/24 01/19/24 History 62.5 mcg-vilant 25 mcg inhalat.powder (Trelegy Ellipta) hydroxyzine HCl 50 mg tablet 100 mg PO BID 01/19/24 01/19/24 History meloxicam 15 mg tablet 15 mg PO QDAY #30 tabs 01/19/24 01/19/24 Rx metoprolol succinate 25 mg 25 mg PO QDAY 01/19/24 01/19/24 History tablet,extended release 24 hr montelukast 10 mg tablet 10 mg PO QDAY 01/19/24 01/19/24 History rosuvastatin 10 mg tablet 10 mg PO QHS 01/19/24 01/19/24 History semaglutide 0.25 mg or 0.5 mg (2 0.5 mg (0.736 mL) subcut QWEEK #3 01/19/24 01/19/24 Rx mg/3 mL) subcutaneous pen injector mL (Ozempic) valsartan 80 mg tablet 80 mg PO QDAY 01/19/24 01/19/24 History Have you fallen in the past year?: No Nurse's Note: Is seeing [facility] pulmnology has Ct scan set up for 01/29/24. Sees [facility] ortho and does steroid injections. 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 Followed w/ gynecology had cervical cancer but was able to be froze off and no longer needs pap smears. States she gets frozen shoulder had surgery in 2020. States L side started cracking is not certain if she has arthritis or bursitis. [facility] Medical History (Updated 01/19/24 @ 12:[address] Jaret Fuller DO) COPD (chronic obstructive pulmonary disease) Depression Cervical cancer Skin cancer IBS (irritable bowel syndrome) Hyperlipemia Hypertension Diabetes Carpal tunnel syndrome Cataracts, bilateral Arthritis Glaucoma Anal fissure Surgical History (Updated 01/19/24 @ 12:[address] Jaret Fuller DO) History of rectal surgery H/O: section S/P rotator cuff surgery Family History (Updated 01/19/24 @ 11:36 by Vijaya Watkins MA) Sister Bleeding disorder Diabetes Epilepsy Father Heart disease Hypertension Bowel disease Mother Heart disease Hyperlipemia Social History adopted: No household members: none number of children: 3 current occupational status: retired pets and animals: Yes (2) pets and animals: fish sexually active: No Smoking Status: Current every day smoker tobacco type: cigarettes Tobacco: How many years used: 45 alcohol intake: never substance use type: does not use caffeine: Yes (2) Type: coffee what type of physical activity do you participate in: none do you feel safe at home: Yes HPI HPI Chief Complaint: Establish care with a new physician in the [facility]. Details: AURELIO BHAKTA, is a 63 F who presents to the office today for a visit to find a new physician to establish primary care with. Her basic complaints are shoulder pain and knee pain but of course she also has a list of other significant problems that include diabetes chronic obstructive lung disease chronic rectal fissure. ROS Const Constitutional: No body ache, chills, excessive sweating, fatigue, fever(s), frequent falls, headache(s), snoring, weakness, sleep problems or change in appetite Eyes Eyes: No blurry vision, change in vision, eye pain or Light sensitivity ENT ENT: No abnormal hearing, ear or mastoid pain, tinnitus, nasal congestion, headache(s), neck pain or sore throat Resp (more content not included)... Normal [facility] 01-15-[address] [facility] Office Visit ([facility] ) AURELIO BHAKTA ([id number]) 1960 F Date Time Provider Department 01/15/24 10:00 AM ALMAS CRODERO [facility] During your visit today, we recorded the following information about you: Temperature Pulse Respiration Blood pressure 96.9 degrees 71/minute 20/minute 95/62 Weight Height 84.8 kg 1.638 m Almas Cordero, DEVELOPMENT CHEMIST.FIELD MARKETING ASSOCIATE 01/15/2024 3:42 PM Signed Chief Complaint: Here today to follow up since last initial [facility] visit done 09/2023. History of Present Illness: Aurelio Bhakta is a 63 year old female who is presenting today for to follow up since last initial [facility] visit 09/2023. Patient has a PMH significant for DM II, morbid obesity. Stated she was not explained thoroughly during the the last [facility] visit. she is comfortable to follow up at [facility]. Patient is a active smoker with a 50 pack year history. Currently still smoking 20 daily. Also smokes due to anxiety. Since the patient's last visit the patient has not had new medical issues or hospitalizations. No recent respiratory infections/pneumonia. Modified Medical Research [place] Dyspnea Scale (MMRC) I get short of breath when hurrying on level ground or walking up a slight hill 1 Patient's appetite and weight is stable. Respiratory symptoms include. Unintentional weight loss: No Sinus drainage: No SOB: Yes with strenuous activities Chest tightness: No Coughing: With mucus: Clear and Thick Hemoptysis: No Fever/Chills: No Wheezing: Yes on daily Trelegy HFA, prn albuterol HFA. Initiated by PCP. Medication Treatment: Are you using regular inhalers?: Yes History of respiratory exposures include: Occupational: None Environmental:None Past Medical History: PAST MEDICAL HISTORY Diagnosis Date Anxiety state COPD (chronic obstructive pulmonary disease) (HCC) Elevated cholesterol Essential hypertension Prediabetes Surgical Hx: PAST SURGICAL HISTORY Procedure Laterality Date >=3 1989 2 C-Sections REPAIR ROTATOR CUFF,ACUTE 2020 Family Hx: FAMILY HISTORY Problem Relation Age of Onset Cataract Mother Hypertension Mother Hypertension Sister Diabetes Sister Macular Degen Sister Detached Retina Sister Cataract Sister Cataract Maternal Grandmother Glaucoma No Family History Allergies: ALLERGIES Allergen Reactions Hydrocodone Vomiting Naproxen Anaphylaxis Sulfa (Sulfonamide * Other: See Comments, Rash Tramadol Hives, Rash Trazodone Hives, Rash Social History Tobacco Use: Types: Cigarettes Review Of Systems: See HPI for ROS All of the remainder systems were reviewed and negative. PHYSICAL EXAMINATION: BP 95/62 Pulse 71 Temp (Src) 96.9 (Temporal Artery) Resp 20 Ht 5' 4.5 (1.64m) Wt 187 lb (84.8kg) SpO2 96% BMI 31.61 kg/(m2). Deferred Data Review I have visually reviewed imaging and testing below CT imaging done today was reviewed independently by practitioner and awaiting radiology review. LDCT 05/30/2021 - images in epic Prior PFTS: No textual results found for the specified procedure(s). Assessment and Plan: 1. Smoker SMOKING CESSATION COUNSELING Smoking cessation methods including Nicotine Replacement Therapies and Behavior Modification were discussed with the patient and assistance offered. The medical conditions adversely affected by cigarette use include:Emphysema. The patient is currently not ready to quit. I personally spent 3 minutes in counseling. The time spent in smoking cessation counseling is exclusive of any other counseling during this visit. Advised to set a quit date. Discussed NRTs nicotine lozenges/nicotine patch, side effects, dosage and administration. Cigarette Logs : Record every single smoked cigarette on a cigarette log (either on their smartphone or with paper and pencil) contiguous to the smoking. Logging your smoked cigarettes in real-time (while smoking) helps quantify consumption accurately and helps you and your act of smoking become more mindful versus automatically, habitually without thought or cognizance. You can't change something if you can't measure the change. Oral Substitutes/Hydration Drinking water is a superb coping technique. Snacking on crunchy, nutrient dense, low calorie foods such as chopped peppers, celery, or carrots can be extremely helpful. Using cinnamon sticks, plastic straws, and sugarless gum/ candy are also excellent oral substitutes. Phone [phone] ([phone]) as additional resource. 2. Centrilobular emphysema (HCC) Evident on Ldct images 05/2021 Recommended PFT - SPIROMETRY - BASELINE AND POST DILATOR; Future - LUNG DIFFUSION CAPACITY (DLCO); Future -Currently in Continue Trelegy ellipta daily. Rinse/gargle mouth after each use to prevent oral thrush. - Continue Albuterol HFA inhaler, 2 inhalations 10-15 minutes prior to activities associa (more content not included)... Normal [facility] CNMIKEon 01-11-2024 [facility] Office Visit ([facility] ) AURELIO BHAKTA ([id number]) 1960 F Date Time Provider Department 01/11/24 11:30 AM KENIA THAO During your visit today, we recorded the following information about you: Patience Childs MA 01/11/2024 11:42 AM Signed AMB ROOMING INTAKE FLOWSHEET DATA Pain Pain Level: 6 Pain Location: Knee-Right Description: Aching (swelling and locking) Duration Amount of Time: 1 Duration Units: Years Frequency: Continuous Intervention/Comfort measure: Kenia Boyd PA-C 01/11/2024 11:42 AM Signed Large Joint Arthro/Inj: R knee joint Informed Consent Consent Obtained: Verbal [place] Protocol A moment to CARE was completed. SIGN IN Sign in communication not applicable due to emergent procedure. Personnel directly involved with the procedure wore the appropriate PPE. Special Equipment: N/A Patient/Surrogate Stated/Verified: Patient name, Date of , Relevant allergies and Intended procedure TIME OUT Intended patient and procedure match the source document(s). Consent documented and matches the intended procedure. Relevant labs, photos, and/or imaging studies have been reviewed. Correct side/site marked and visible. Medications required for procedure verified. No fire risk assessment and interventions applicable. No implant(s) inserted. 01/11/2024 11:41 AM The procedure site was prepped in the usual sterile fashion. Site: R knee joint Medications: 6 mg betamethasone acetate-betamethasone sodium phosphate 6 mg/mL Anesthetics: 5 mL lidocaine (PF) 10 mg/mL (1 %) Outcome: Tolerated well, no immediate complications Post-injection instructions were reviewed with the patient and the patient voiced understanding of these instructions. SIGN OUT No specimen collected. All instruments, equipment, possible retained foreign bodies accounted for. Post-procedure follow-up management communicated and Plan of Care Visit completed when applicable Referring Provider: RAFAEL TAYLOR [[id number]] Allergies As of Date: 01/11/2024 Noted Allergy Reaction HYDROCODONE 11/29/2021 11 - Vomiting NAPROXEN 11/29/2021 10 - Anaphylaxis SULFA (SULFONAMIDE ANTIBIOTICS) 11/29/2021 14 - Other: See Comments 2 - Rash TRAMADOL 11/29/2021 4 - Hives 2 - Rash TRAZODONE 11/29/2021 4 - Hives 2 - Rash Date Reviewed: 12/29/2023 Reviewed by: Adeline Huerta, OD - Fully Assessed Reason for Visit: Established Patient [175] Cmt: 15 weeks post injection Injections [199] Cmt: 15 weeks post injection Primary Visit Diagnosis:Primary osteoarthritis of right knee [M17.11] Order(s):Large Joint Arthro/Inj: R knee joint [[id number]] Order #: [id number] [] betamethasone acetate-betamethasone sodium phosphate 6 mg injection (CELESTONE)Disp: Rfl: [] lidocaine (PF) 10 mg/mL (1 %) 5 mL injection (XYLOCAINE)Disp: Rfl: Prescriptions as of 01/11/2024 - esomeprazole (NEXIUM) 40 mg capsule Take 1 capsule by mouth once daily. - metoprolol succinate ER (TOPROL XL) 25 mg 24 hr tablet Take 1 tablet by mouth once daily. - Cholecalciferol, Vitamin D3, (VITAMIN D) 25 mcg (1,000 unit) cap Take 1 capsule by mouth once daily. - semaglutide (OZEMPIC) 0.25 mg or 0.5 mg (2 mg/3 mL) pen Inject 0.25 mg subcutaneously one time a week. - predniSONE (DELTASONE) 10 mg tablet 6 tabs po day 1, then 5 tabs day 2, 4 tabs day 3, 3 tabs day 4, 2 tabs day 5, 1 tab day 6. - hydrOXYzine HCl (ATARAX) 50 mg tablet Take 50 mg by mouth four times a day as needed. - Melatonin 5 mg cap Take 1 capsule by mouth daily at bedtime. - hydrocortisone 2.5 % cream Apply 1 application to affected area two times a day. - emollient combination no.117 (EUCERIN ADVANCED REPAIR HAND) crea Apply 1 mg to affected area once daily as needed. - TRELEGY ELLIPTA 100-62.5-25 mcg inhalation powder Inhale 1 Puff as instructed once daily. - bumetanide (BUMEX) 1 mg tablet Take 1 tablet by mouth once daily. - albuterol HFA (PROVENTIL HFA, VENTOLIN HFA) 90 mcg/actuation inhaler Inhale 2 Puffs as instructed every 6 hours as needed. - valsartan (DIOVAN) 80 mg tablet Take 1 tablet by mouth once daily. - bumetanide (BUMEX) 1 mg tablet Take 1 tablet by mouth once daily. - buPROPion SR (WELLBUTRIN SR) 150 mg 12 hr tablet TAKE 1 TABLET ONCE DAILY FOR 3 DAYS, THEN 1 TABLET TWICE DAILY THEREAFTER, BEGIN 2 WEEKS PRIOR TO QUIT DATE. - bumetanide (BUMEX) 1 mg tablet Take 1.5 tablets by mouth once daily. - montelukast (SINGULAIR) 10 mg tablet Take 1 tablet by mouth daily at bedtime. - rosuvastatin (CRESTOR) 10 mg tablet Take 1 tablet by mouth once daily. - ferrous sulfate 325 mg (65 mg iron) tablet Take by mouth. Problem List As Of Date 01/11/2024 Noted Resolved Type 2 diabetes mellitus without complication, *01/16/2022 Class 2 severe obesity due to excess calories w*05/23/2022 Disorder of right rotator (more content not included)... Normal [facility] Large Joint Arthro/Inj: R kn ee jointon 01-11-2024 Kenia Thao PA -C 01/11/2024 11:42 AM Large Joint Arthro/Inj: R knee joint Informed Consent Consent Obtained: Verbal [place] Protocol A moment to CARE was completed. SIGN IN Sign in communication not applicable due to emergent procedure. Personnel directly involved with the procedure wore the appropriate PPE. Special Equipment: N/A Patient/Surrogate Stated/Verified: Patient name, Date of , Relevant allergies and Intended procedure TIME OUT Intended patient and procedure match the source document(s). Consent documented and matches the intended procedure. Relevant labs, photos, and/or imaging studies have been reviewed. Correct side/site marked and visible. Medications required for procedure verified. No fire risk assessment and interventions applicable. No implant(s) inserted. 01/11/2024 11:41 AM The procedure site was prepped in the usual sterile fashion. Site: R knee joint Medications: 6 mg betamethasone acetate-betamethasone sodium phosphate 6 mg/mL Anesthetics: 5 mL lidocaine (PF) 10 mg/mL (1 %) Outcome: Tolerated well, no immediate complications Post-injection instructions were reviewed with the patient and the patient voiced understanding of these instructions. SIGN OUT No specimen collected. All instruments, equipment, possible retained foreign bodies accounted for. Post-procedure follow-up management communicated and Plan of Care Visit completed when applicable [facility] CORNEAL TOPOGRAPHY PENTACAM OU (BOTH EYES)on 01-06-2024 [facility] Radiology Study observation (narrative) [facility] FUNDUS PHOTOS OU (BOTH EYES) on 01-06-2024 [facility] Radiology Study observation (narrative) [facility] IOL BIOMETRY W/ IOL CALC OU (BOTH EYES)on 01-06-2024 [facility] Radiology Study observation (narrative) [facility] CNPNon 12-30-2023 CNPN Telephone (AGINTMAC) AURELIO BHAKTA ([id number]) 1960 [facility] Date Time Provider Department 12/30/23 CHRIS RAZA During your visit today, we recorded the following information about you: Amelie Archer 12/30/2023 2:18 PM Signed ----- Message from Brenda Jacinto sent at 12/30/2023 11:26 AM EDT ----- [address] [place] [address]/INTM AG ACC/Chris Raza/Pt is requesting a refill for her medication Subject Line Format: [Specialty] / [Provider Name] / Medication Question Select Primary Care Department For Pool Routing Assistance: INTM AG ACC => AG [facility]TM [facility] [place] [[id number]] Patient: Aurelio Bhakta Date of : 1960 Primary Care Provider: Chris Raza MD Patient called to request a refill for his/her medication(s). Patient was advised that the refill should be called into the pharmacy. Patient advised they had already done so and over 24 hours has passed since doing so and they are following up: Y/N? Y. Please contact the patient for additional information at [phone] (home) [phone] (cell). Thank you, Brenda Norton December 30, 2023 11:27 AM Amelie Archer 12/30/2023 2:20 PM Signed Called patient regarding message below. Patient stated that they did not call us today regarding any medication refills. Amelie Archer [employer]lee December 30, 2023 2:19 PM Allergies As of Date: 12/30/2023 Noted Allergy Reaction HYDROCODONE 11/29/2021 11 - Vomiting NAPROXEN 11/29/2021 10 - Anaphylaxis SULFA (SULFONAMIDE ANTIBIOTICS) 11/29/2021 14 - Other: See Comments 2 - Rash TRAMADOL 11/29/2021 4 - Hives 2 - Rash TRAZODONE 11/29/2021 4 - Hives 2 - Rash Date Reviewed: 12/29/2023 Reviewed by: Adeline Huerta OD - Fully Assessed Reason for Visit: Returning Patient's Call [408] Prescriptions as of 12/30/2023 - esomeprazole (NEXIUM) 40 mg capsule Take 1 capsule by mouth once daily. - metoprolol succinate ER (TOPROL XL) 25 mg 24 hr tablet Take 1 tablet by mouth once daily. - Cholecalciferol, Vitamin D3, (VITAMIN D) 25 mcg (1,000 unit) cap Take 1 capsule by mouth once daily. - semaglutide (OZEMPIC) 0.25 mg or 0.5 mg (2 mg/3 mL) pen Inject 0.25 mg subcutaneously one time a week. - predniSONE (DELTASONE) 10 mg tablet 6 tabs po day 1, then 5 tabs day 2, 4 tabs day 3, 3 tabs day 4, 2 tabs day 5, 1 tab day 6. - hydrOXYzine HCl (ATARAX) 50 mg tablet Take 50 mg by mouth four times a day as needed. - Melatonin 5 mg cap Take 1 capsule by mouth daily at bedtime. - hydrocortisone 2.5 % cream Apply 1 application to affected area two times a day. - emollient combination no.117 (EUCERIN ADVANCED REPAIR HAND) crea Apply 1 mg to affected area once daily as needed. - TRELEGY ELLIPTA 100-62.5-25 mcg inhalation powder Inhale 1 Puff as instructed once daily. - bumetanide (BUMEX) 1 mg tablet Take 1 tablet by mouth once daily. - albuterol HFA (PROVENTIL HFA, VENTOLIN HFA) 90 mcg/actuation inhaler Inhale 2 Puffs as instructed every 6 hours as needed. - valsartan (DIOVAN) 80 mg tablet Take 1 tablet by mouth once daily. - bumetanide (BUMEX) 1 mg tablet Take 1 tablet by mouth once daily. - buPROPion SR (WELLBUTRIN SR) 150 mg 12 hr tablet TAKE 1 TABLET ONCE DAILY FOR 3 DAYS, THEN 1 TABLET TWICE DAILY THEREAFTER, BEGIN 2 WEEKS PRIOR TO QUIT DATE. - bumetanide (BUMEX) 1 mg tablet Take 1.5 tablets by mouth once daily. - montelukast (SINGULAIR) 10 mg tablet Take 1 tablet by mouth daily at bedtime. - rosuvastatin (CRESTOR) 10 mg tablet Take 1 tablet by mouth once daily. - ferrous sulfate 325 mg (65 mg iron) tablet Take by mouth. Problem List As Of Date 12/30/2023 Noted Resolved Type 2 diabetes mellitus without complication, *01/16/2022 Class 2 severe obesity due to excess calories w*05/23/2022 Disorder of right rotator cuff [M67.911] 06/30/2022 Obesity, Class I, BMI 30-34.9 [E66.9] 08/27/2022 Chronic obstructive pulmonary disease, unspecif*08/21/2023 Depression, major, single episode, moderate (HC*08/21/2023 Encounter Status:Closed by AMELIE ARCHER on 12/30/23 [facility] OCT OPTIC NERVE CIRRUS OU (B OTH EYES)on 12-29-2023 [facility] Radiology Study observation (narrative) [facility] Marisol 12-17-2023 CNPN Telephone (HYUN) AURELIO BHAKTA ([id number]) 1960 F Date Time Provider Department 12/17/23 SHRUTHI DOLAN During your visit today, we recorded the following information about you: Amelie Archer 12/17/2023 3:14 PM Signed ----- Message from Kirk Sinclair sent at 12/17/2023 1:54 PM EDT ----- [facility]/ Stone Raza/ INTM [facility] / callback Subject Line Format: Medicine / Chris Raza MD / [Issue] Select Department Name For Pool Routing Assistance: INTM AG ACC => AG INTM [facility]PT [facility] [place] [[id number]] Patient: Aurelio Bhakta Date of : 1960 Primary Care Provider: Chris Raza MD The reason I am contacting the office is: Call Back - Priscilla from [id number] is requesting a call back from the office. Patient is switching to [facility] and they need the patients refills to send be sent over. Address [address] [place] [address]. Person calling if other than patient: Priscilla ( [facility]) Best contact number:[phone] Thank you, Kirk Art December 17, 2023 1:55 PM Amelie Archer 12/17/2023 3:15 PM Signed Handled in another encounter Amelie Archer [employer] December 17, 2023 3:15 PM' Allergies As of Date: 12/17/2023 Noted Allergy Reaction HYDROCODONE 11/29/2021 11 - Vomiting NAPROXEN 11/29/2021 10 - Anaphylaxis SULFA (SULFONAMIDE ANTIBIOTICS) 11/29/2021 14 - Other: See Comments 2 - Rash TRAMADOL 11/29/2021 4 - Hives 2 - Rash TRAZODONE 11/29/2021 4 - Hives 2 - Rash Date Reviewed: 12/14/2023 Reviewed by: Vicki Rocha MA - Fully Assessed Prescriptions as of 12/17/2023 - Cholecalciferol, Vitamin D3, (VITAMIN D) 25 mcg (1,000 unit) cap Take 1 capsule by mouth once daily. - semaglutide (OZEMPIC) 0.25 mg or 0.5 mg (2 mg/3 mL) pen Inject 0.25 mg subcutaneously one time a week. - predniSONE (DELTASONE) 10 mg tablet 6 tabs po day 1, then 5 tabs day 2, 4 tabs day 3, 3 tabs day 4, 2 tabs day 5, 1 tab day 6. - hydrOXYzine HCl (ATARAX) 50 mg tablet Take 50 mg by mouth four times a day as needed. - Melatonin 5 mg cap Take 1 capsule by mouth daily at bedtime. - hydrocortisone 2.5 % cream Apply 1 application to affected area two times a day. - emollient combination no.117 (EUCERIN ADVANCED REPAIR HAND) crea Apply 1 mg to affected area once daily as needed. - TRELEGY ELLIPTA 100-62.5-25 mcg inhalation powder Inhale 1 Puff as instructed once daily. - bumetanide (BUMEX) 1 mg tablet Take 1 tablet by mouth once daily. - albuterol HFA (PROVENTIL HFA, VENTOLIN HFA) 90 mcg/actuation inhaler Inhale 2 Puffs as instructed every 6 hours as needed. - valsartan (DIOVAN) 80 mg tablet Take 1 tablet by mouth once daily. - bumetanide (BUMEX) 1 mg tablet Take 1 tablet by mouth once daily. - buPROPion SR (WELLBUTRIN SR) 150 mg 12 hr tablet TAKE 1 TABLET ONCE DAILY FOR 3 DAYS, THEN 1 TABLET TWICE DAILY THEREAFTER, BEGIN 2 WEEKS PRIOR TO QUIT DATE. - bumetanide (BUMEX) 1 mg tablet Take 1.5 tablets by mouth once daily. - esomeprazole (NEXIUM) 40 mg capsule Take 1 capsule by mouth once daily. - metoprolol succinate ER (TOPROL XL) 25 mg 24 hr tablet Take 1 tablet by mouth once daily. - montelukast (SINGULAIR) 10 mg tablet Take 1 tablet by mouth daily at bedtime. - rosuvastatin (CRESTOR) 10 mg tablet Take 1 tablet by mouth once daily. - ferrous sulfate 325 mg (65 mg iron) tablet Take by mouth. Problem List As Of Date 12/17/2023 Noted Resolved Type 2 diabetes mellitus without complication, *01/16/2022 Class 2 severe obesity due to excess calories w*05/23/2022 Disorder of right rotator cuff [M67.911] 06/30/2022 Obesity, Class I, BMI 30-34.9 [E66.9] 08/27/2022 Chronic obstructive pulmonary disease, unspecif*08/21/2023 Depression, major, single episode, moderate (HC*08/21/2023 Encounter Status:Closed by AMELIE ARCHER on 12/17/23 [facility] 25(OH)D3 SerPl-mCncon 2023 25-hydroxyvitamin D3 [Mass/Vol] 23.6 ng/mL Low 31.0-80.0 [facility] Comment on above: Order Comment: Speci men Type: BLOOD SPECIMENOrdering Facility: [facility] Address: [address] [place] [address] Performed By: #### [id number] ####[facility]CLIA [id number] [id number] [facility] CNOVon 12-14-2023 CNOV Office Visit (ORTHWS ) AURELIO BHAKTA ([id number]) 1960 F Date Time Provider Department 12/14/23 11:30 AM KENIA THAO During your visit today, we recorded the following information about you: Vicki Rocha MA 12/14/2023 1:04 PM Signed Patient presents with: Right Knee - Follow Up 2 weeks post visit with BP OA right knee : Wants cortisone injection AMB ROOMING INTAKE FLOWSHEET DATA Pain Pain Level: 7 Pain Location: Knee-Right Description: Aching Duration Amount of Time: (Ongoing) Frequency: Continuous Patient continuing to have right knee pain. Leaving for [place] on Thursday and would like a cortisone injection. Taking no med's for the pain. Kenia Thao PA-C 12/14/2023 1:04 PM Signed Kenia Thao PA-C Department of Orthopaedics Orthopaedics [address] [place] [address] Dept: [phone] Dept December 14, 2023 CHIEF COMPLAINT: Follow Up of the Right Knee and 2 weeks post visit with BP OA right knee (Wants cortisone injection). ASSESSMENT: M17.11 Primary osteoarthritis of right knee (primary encounter diagnosis) SUMMARY/PLAN: Patient presents requesting a repeat right knee corticosteroid injection. Unfortunately she is not quite 91 days out from her last corticosteroid injection. She is leaving tomorrow, her daughter is getting in [place]. Knee is very painful. We discussed trying a short oral steroid just to help with pain and discomfort during the wedding. Happy to see her back at the 91-day helga to do a repeat injection. Imaging: IMPRESSION: Severe medial compartment osteoarthritis. Commander Internal Affairs: NATASHA Transcribe Date/Time: Dec 17 2022 9:04P Dictated by : MAIKOL BURNETT MD This examination was interpreted and the report reviewed and electronically signed by: MAIKOL BURNETT MD on Dec 17 2022 9:04PM EST Results-Findings * * *Final Report* * * DATE OF EXAM: Dec 15 2022 11:07AM WRX [id number] - XR KNEE 4V AP/PA BOTH+LAT/AMADOR RT / PROCEDURE REASON: Pain * * * * Physician Interpretation * * * * EXAMINATION / TECHNIQUE: XR KNEE 4V AP/PA BOTH+LAT/AMADOR RT HISTORY: Right knee pain x6 months Pain COMPARISON: None RESULT: No acute fracture or malalignment. Severe medial compartment osteoarthritis. Trace joint fluid. Ms. Aurelio Bhakta was advised as to contrast therapies and/or to take analgesics/anti-inflammatori es as needed and all contraindications were reviewed. Supporting Information Below: Medications: Current Outpatient Medications Medication Sig hydrOXYzine HCl (ATARAX) 50 mg tablet Take 50 mg by mouth four times a day as needed. Melatonin 5 mg cap Take 1 capsule by mouth daily at bedtime. hydrocortisone 2.5 % cream Apply 1 application to affected area two times a day. emollient combination no.117 (EUCERIN ADVANCED REPAIR HAND) crea Apply 1 mg to affected area once daily as needed. semaglutide (OZEMPIC) 0.25 mg or 0.5 mg (2 mg/3 mL) pen Inject 0.25 mg subcutaneously one time a week. TRELEGY ELLIPTA 100-62.5-25 mcg inhalation powder Inhale 1 Puff as instructed once daily. bumetanide (BUMEX) 1 mg tablet Take 1 tablet by mouth once daily. albuterol HFA (PROVENTIL HFA, VENTOLIN HFA) 90 mcg/actuation inhaler Inhale 2 Puffs as instructed every 6 hours as needed. valsartan (DIOVAN) 80 mg tablet Take 1 tablet by mouth once daily. esomeprazole (NEXIUM) 40 mg capsule Take 1 capsule by mouth once daily. metoprolol succinate ER (TOPROL XL) 25 mg 24 hr tablet Take 1 tablet by mouth once daily. montelukast (SINGULAIR) 10 mg tablet Take 1 tablet by mouth daily at bedtime. rosuvastatin (CRESTOR) 10 mg tablet Take 1 tablet by mouth once daily. predniSONE (DELTASONE) 10 mg tablet 6 tabs po day 1, then 5 tabs day 2, 4 tabs day 3, 3 tabs day 4, 2 tabs day 5, 1 tab day 6. bumetanide (BUMEX) 1 mg tablet Take 1 tablet by mouth once daily. (Patient not taking: Reported on 12/03/2023) buPROPion SR (WELLBUTRIN SR) 150 mg 12 hr tablet TAKE 1 TABLET ONCE DAILY FOR 3 DAYS, THEN 1 TABLET TWICE DAILY THEREAFTER, BEGIN 2 WEEKS PRIOR TO QUIT DATE. (Patient not taking: Reported on 12/03/2023) bumetanide (BUMEX) 1 mg tablet Take 1.5 tablets by mouth once daily. (Patient not taking: Reported on 12/14/2023) ferrous sulfate 325 mg (65 mg iron) tablet Take by mouth. (Patient not taking: Reported on 12/03/2023) No current facility-administered medications for this visit. Allergies: Hydrocodone, Naproxen, Sulfa (Sulfonamide Antibiotics), Tramadol, and Trazodone This note was partially generated using [employer] voice recognition system, and there may be some incorrect words, spellings, and punctuation that were not noted in checking the note before saving. Kenia Thao PA-C Referring Provider: RAFAEL TAYLOR [[id number]] Allergies As of Date: 12/14/2023 Noted Allergy Reaction HYDROCOD (more content not included)... Normal [facility] CNOVon 12-03-2023 CNOV Office Visit ([facility]) LIVIAAURELIO ([id number]) 1960 F Date Time Provider Department 12/03/23 1:40 PM [facility] During your visit today, we recorded the following information about you: Temperature Pulse Respiration Blood pressure 98.2 degrees 84/minute 18/minute 110/70 Weight Height 88.5 kg 1.638 m Shruthi Dolan MD 12/03/2023 3:48 PM Signed [facility] Shruthi Dolan MD ASSESSMENT/PLAN: 1. 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 2. Hx of mammogram - ICD9: V15.89, ICD10: Z92.89 - she can continue with annual screenings. 3. Obesity, Class I, BMI 30-34.9 - ICD9: 278.00, ICD10: E66.9 - ozempic is restarted 4. Chronic obstructive pulmonary disease, unspecified COPD type (HCC) - ICD9: 496, ICD10: J44.9 - continue with current regimen 5. Anxiety - ICD9: 300.00, ICD10: F41. - continue atarax 6. Encounter for smoking cessation counseling - ICD9: V65.42, 305.1, ICD10: Z71.6 - Cessation encouraged. - Physiologic and physical aspects of tobacco addiction as well as strategies for quitting were discussed. - Counseling was given focusing on the harmful effects of this addiction especially given the patient's medical condition(s) which will be worsened because of the chemicals in tobacco. - counseled to complete lung cancer screening and spirometry - CONSULT TO SMOKING CESSATION 7. Chronic midline low back pain without sciatica - ICD9: 724.2, 338.29, ICD10: M54.50, G89.29 - XR LUMBAR GENERAL 3V AP/LAT/L5-S1 to rule out any acute causes 8. Skin sensitivity - ICD9: 709.9, ICD10: R23.8 - eucerin and hydrocortisone is prescribed - advised to use sunscreen 9. Abdominal distention - ICD9: 787.3, ICD10: R14.0 - CONSULT TO GASTROENTEROLOGY d/t history of gastroparesis. 10. Difficulty going to sleep - melatonin 5mg is prescribed Shruthi Dolan MD SUBJECTIVE: Aurelio Bhakta is a 63 year old female here today for 3 month follow up. HPI Ms. Bhakta is a 63-year-old female with PMH: - Intellectual disability - COPD (albuterol, montelukast, trelegy) - Type 2 diabetes (not on hypoglycemics d/t GI upset) - Tobacco dependence - Peptic ulcer disease, GERD(esomeprazole) - Anxiety, depression (bupropion- not anymore, atarax) - Osteoarthritis of the right knee [sees Ortho and gets injections], adhesive capsulitis of the right shoulder, chronic bilateral lower extremity edema - Hypertension (bumetanide, metoprolol, valsartan) - Hyperlipidemia (rosuvastatin) - Iron deficiency anemia - Obesity - Gastroparesis Who is here today for a 3-month follow-up, and has complains of- abdominal distention after eating. Has some knee pain, following with ortho for it. Her skin itches when she goes in the sun. PAST MEDICAL HISTORY No date: Anxiety state No date: Elevated cholesterol No date: Essential hypertension No date: Prediabetes PAST SURGICAL HISTORY 1989: >=3 Comment: 2 C-Sections 2020: REPAIR ROTATOR CUFF,ACUTE Social History Tobacco Use Smoking status: Every Day Current packs/day: 1.00 Average packs/day: 1 pack/day for 40.0 years (40.0 ttl pk-yrs) Types: Cigarettes Smokeless tobacco: Never Vaping Use Vaping status: Never Used Substance Use Topics Alcohol use: Not Currently Drug use: Not Currently FAMILY HISTORY Problem Relation Age of Onset Hypertension Mother Hypertension Sister Diabetes Sister Macular Degen Sister Detached Retina Sister Cataract Sister Cataract Maternal Grandmother Glaucoma No Family History PAIN EVALUATION No data found in the last 1 encounters. ALLERGIES Allergen Reactions Hydrocodone Vomiting Naproxen Anaphylaxis Sulfa (Sulfonamide * Other: See Comments, Rash Tramadol Hives, Rash Trazodone Hives, Rash Medication List prior to visit Current Outpatient Medications Medication Sig hydrOXYzine HCl (ATARAX) 50 mg tablet Take 50 mg by mouth four times a day as needed. TRELEGY ELLIPTA 100-62.5-25 mcg inhalation powder Inhale 1 Puff as instructed once daily. bumetanide (BUMEX) 1 mg tablet Take 1 tablet by mouth once daily. albuterol HFA (PROVENTIL HFA, VENTOLIN HFA) 90 mcg/actuation inhaler Inhale 2 Puffs as instructed every 6 hours as needed. valsartan (DIOVAN) 80 mg tablet Take 1 tablet by mouth once daily. esomeprazole (NEXIUM) 40 mg capsule Take 1 capsule by mouth once daily. metoprolol succinate ER (TOPROL XL) 25 mg 24 hr tablet Take 1 tablet by mouth once daily. montelukast (SINGULAIR) 10 mg table (more content not included)... Normal [facility] Marisol 12-03-2023 TERRENCE Telephone (HYUN) AURELIO BHAKTA ([id number]) 1960 F LV Date Time Provider Department 12/03/23 CHRIS RAZA During your visit today, we recorded the following information about you: Louise Sloan 12/03/2023 5:14 PM Signed Referral Gastroenterology Confirmation number: [id number] Louise Sloan [employer] December 03, 2023 5:14 PM Allergies As of Date: 12/03/2023 Noted Allergy Reaction HYDROCODONE 11/29/2021 11 - Vomiting NAPROXEN 11/29/2021 10 - Anaphylaxis SULFA (SULFONAMIDE ANTIBIOTICS) 11/29/2021 14 - Other: See Comments 2 - Rash TRAMADOL 11/29/2021 4 - Hives 2 - Rash TRAZODONE 11/29/2021 4 - Hives 2 - Rash Date Reviewed: 12/03/2023 Reviewed by: Apple Tam LPN - Fully Assessed Reason for Visit: Referral Request [[id number]] Cmt: Gastroenterolgy Prescriptions as of 12/03/2023 - hydrOXYzine HCl (ATARAX) 50 mg tablet Take 50 mg by mouth four times a day as needed. - Melatonin 5 mg cap Take 1 capsule by mouth daily at bedtime. - hydrocortisone 2.5 % cream Apply 1 application to affected area two times a day. - emollient combination no.117 (EUCERIN ADVANCED REPAIR HAND) crea Apply 1 mg to affected area once daily as needed. - semaglutide (OZEMPIC) 0.25 mg or 0.5 mg (2 mg/3 mL) pen Inject 0.25 mg subcutaneously one time a week. - TRELEGY ELLIPTA 100-62.5-25 mcg inhalation powder Inhale 1 Puff as instructed once daily. - bumetanide (BUMEX) 1 mg tablet Take 1 tablet by mouth once daily. - albuterol HFA (PROVENTIL HFA, VENTOLIN HFA) 90 mcg/actuation inhaler Inhale 2 Puffs as instructed every 6 hours as needed. - valsartan (DIOVAN) 80 mg tablet Take 1 tablet by mouth once daily. - bumetanide (BUMEX) 1 mg tablet Take 1 tablet by mouth once daily. - buPROPion SR (WELLBUTRIN SR) 150 mg 12 hr tablet TAKE 1 TABLET ONCE DAILY FOR 3 DAYS, THEN 1 TABLET TWICE DAILY THEREAFTER, BEGIN 2 WEEKS PRIOR TO QUIT DATE. - bumetanide (BUMEX) 1 mg tablet Take 1.5 tablets by mouth once daily. - esomeprazole (NEXIUM) 40 mg capsule Take 1 capsule by mouth once daily. - metoprolol succinate ER (TOPROL XL) 25 mg 24 hr tablet Take 1 tablet by mouth once daily. - montelukast (SINGULAIR) 10 mg tablet Take 1 tablet by mouth daily at bedtime. - rosuvastatin (CRESTOR) 10 mg tablet Take 1 tablet by mouth once daily. - ferrous sulfate 325 mg (65 mg iron) tablet Take by mouth. Problem List As Of Date 12/03/2023 Noted Resolved Type 2 diabetes mellitus without complication, *01/16/2022 Class 2 severe obesity due to excess calories w*05/23/2022 Disorder of right rotator cuff [M67.911] 06/30/2022 Obesity, Class I, BMI 30-34.9 [E66.9] 08/27/2022 Chronic obstructive pulmonary disease, unspecif*08/21/2023 Depression, major, single episode, moderate (HC*08/21/2023 Encounter Status:Closed by LOUISE SLOAN on 12/03/23 Normal [facility] HEMOGLOBIN A1C (POC)on 12-02 HbA1c (Bld) [Mass fraction] 6.5 % Abnormal 4.3 - 5.6 % [facility] Comment on above: Location:[facility], [address] [place] [address] [address] [place], [place], [address] Point of care (POC) Hemoglobin A1c (HGBA1C) testing is intended to assess glucose control and provide a management tool for patients known to have diabetes and their healthcare providers. Target HGBA1C levels may depend on specific clinical circumstances. POC HGBA1C is not intended for use as a diagnostic or screening test; laboratory-based testing should be used for diagnostic purposes. The following information is supplemental and may not be applicable to specific diabetes management situations: The POC device brake liner provides a normal range of 4.2% to 6.5% for the HGBA1C POC test. However, the [place] [employer] guidelines indicate that patients with HGBA1C in the range of 5.7% to 6.4% are at increased risk for development of diabetes and that intervention by lifestyle modification may be beneficial. A HGBA1C level greater than or equal to 6.5% is considered diagnostic of diabetes, pending confirmatory testing. Use of HGBA1C testing to evaluate glucose control may not be appropriate for patients with hemoglobin variants or other conditions (e.g. anemia) that alter red blood cell lifespan. Interpretation and review of laboratory results Abnormal [facility] CNOVon 11-30-2023 CNOV Office Visit (ORTHWS ) AURELIO BHAKTA ([id number]) 1960 F Date Time Provider Department 11/30/23 2:45 PM RAFAEL TAYLOR During your visit today, we recorded the following information about you: Rafael Taylor MD 11/30/2023 3:33 PM Signed Rafael Taylor MD Department of Orthopaedics Orthopaedics [address] [facility] [address] Dept: [phone] Dept November 30, 2023 CHIEF COMPLAINT: Established Patient and Follow Up of the Right Knee HPI Patient here today for 9 weeks post visit with Kenia Thao PA-C OA right knee with injections given. She reports relief from the injection. She is going to [place] soon for her daughters wedding. ASSESSMENT: M17.11 Primary osteoarthritis of right knee (primary encounter diagnosis) PLAN: Patient just wanted to talk a bit more about her right knee and treatment options. She has done well, albeit temporarily with cortisone injections in the past. She has not had bracing and we will try a brace today. Will have her back in a few weeks to get a cortisone injection prior to her trip to [place]. She does not wish to pursue surgical options at this time. We reviewed her nicotine cessation at some point if she desires surgery. Ms. Aurelio Bhakta was advised as to contrast therapies and/or to take analgesics/anti-inflammatori es as needed and all contraindications were reviewed. Will continue to follow her for this chronic problem and continue to establish care for her knee osteoarthritis treatments. OBJECTIVE: Ms. Aurelio Bhakta is a pleasant 63 year old in no apparent distress. Gen:There were no vitals taken for this visit. nl development, non obese, no deformities ENT: Normocephalic, normal hearing, moist mucosa CV: Pulses:DP/PT= 2+ and symmetric, capillary refill < 2 secs, no peripheral edema/varicosities Skin: no rash, bruising or lesions. Good turgor. Psych: cooperative and appropriate, alert and oriented x 3, good mood and affect. Musculoskeletal: Patient walks with very mild antalgia to the right. Cannot effusion on the right. No patellofemoral crepitance. Tender to palpation over the medial joint line and medial distal femoral condyle, albeit mild. She has some mild joint space widening with valgus stress consistent with some mild ligamentous laxity with a solid endpoint. Neurovascular exam intact. Imaging: IMPRESSION: Severe medial compartment osteoarthritis. Commander Internal Affairs: NATASHA Transcribe Date/Time: Dec 17 2022 9:04P Dictated by : MAIKOL BURNETT MD This examination was interpreted and the report reviewed and electronically signed by: MAIKOL BURNETT MD on Dec 17 2022 9:04PM EST Results-Findings * * *Final Report* * * DATE OF EXAM: Dec 15 2022 11:07AM WRX [id number] - XR KNEE 4V AP/PA BOTH+LAT/AMADOR RT / PROCEDURE REASON: Pain * * * * Physician Interpretation * * * * EXAMINATION / TECHNIQUE: XR KNEE 4V AP/PA BOTH+LAT/AMADOR RT HISTORY: Right knee pain x6 months Pain COMPARISON: None RESULT: No acute fracture or malalignment. Severe medial compartment osteoarthritis. Trace joint fluid. Supporting Subjective Information Below: Past Surgical History: PAST SURGICAL HISTORY 1989: >=3 Comment: 2 C-Sections 2020: REPAIR ROTATOR CUFF,ACUTE Medications: Current Outpatient Medications Medication Sig TRELEGY ELLIPTA 100-62.5-25 mcg inhalation powder Inhale 1 Puff as instructed once daily. bumetanide (BUMEX) 1 mg tablet Take 1 tablet by mouth once daily. albuterol HFA (PROVENTIL HFA, VENTOLIN HFA) 90 mcg/actuation inhaler Inhale 2 Puffs as instructed every 6 hours as needed. valsartan (DIOVAN) 80 mg tablet Take 1 tablet by mouth once daily. esomeprazole (NEXIUM) 40 mg capsule Take 1 capsule by mouth once daily. metoprolol succinate ER (TOPROL XL) 25 mg 24 hr tablet Take 1 tablet by mouth once daily. montelukast (SINGULAIR) 10 mg tablet Take 1 tablet by mouth daily at bedtime. rosuvastatin (CRESTOR) 10 mg tablet Take 1 tablet by mouth once daily. bumetanide (BUMEX) 1 mg tablet Take 1 tablet by mouth once daily. buPROPion SR (WELLBUTRIN SR) 150 mg 12 hr tablet TAKE 1 TABLET ONCE DAILY FOR 3 DAYS, THEN 1 TABLET TWICE DAILY THEREAFTER, BEGIN 2 WEEKS PRIOR TO QUIT DATE. (Patient not taking: Reported on 11/30/2023) bumetanide (BUMEX) 1 mg tablet Take 1.5 tablets by mouth once daily. (Patient not taking: Reported on 08/17/2023) ferrous sulfate 325 mg (65 mg iron) tablet Take by mouth. (Patient not taking: Reported on 09/14/2023) No current facility-administered medications for this visit. Allergies: Hydrocodone, Naproxen, Sulfa (Sulfonamide Antibiotics), Tramadol, and Trazodone ROS: General (negative for fatigue, malaise, weight loss/gain) HEENT (negative for headache, earache, recent vision changes, sinus pain, sore throat) Respiratory (no r (more content not included)... Normal [facility] CNOVon 09-28-2023 CNOV Office Visit (JOURDAN ) AURELIO BHAKTA ([id number]) 1960 F Date Time Provider Department 09/28/23 11:30 AM KENIA THAO During your visit today, we recorded the following information about you: Vicki Rocha MA 09/28/2023 2:00 PM Signed Patient presents with: Right Knee - Follow Up 14 weeks post visit OA right knee with injection given AMB ROOMING INTAKE FLOWSHEET DATA Pain Pain Level: 7 Pain Location: Knee-Right Description: Aching Duration Amount of Time: (Ongoing) Frequency: Continuous Intervention/Comfort measure: (None) Patient states injection helped a shorter period of this time. Feels she has swelling and pressure in her knee. States it is effecting her hip and lower back. Taking no med's for the pain. Kenia Thao PA-C 09/28/2023 2:00 PM Signed Kenia Thao PA-C Department of Orthopaedics Orthopaedics [address] [facility] [address] Dept: [phone] Dept September 28, 2023 CHIEF COMPLAINT: Follow Up of the Right Knee and 14 weeks post visit OA right knee with injection given. ASSESSMENT: M17.11 Primary osteoarthritis of right knee (primary encounter diagnosis) M25.561, G89.29 Chronic pain of right knee SUMMARY/PLAN: Patient presents requesting a repeat right knee corticosteroid injection. Previous injection was maybe helpful for a month or 2. Pain today is a 7 out of 10 deep aching. Knee feels swollen. She tells me that her internal medicine provider advised her that she needs to see a surgeon to discuss total knee arthroplasty. I have no issues with getting her in with one of our surgeons for consult, however we previously discussed that she needs to quit smoking before she would be a candidate for any arthroplasty. When I asked her about smoking cessation today she said what's the point. Will proceed with repeat injection today. Large Joint Arthro/Inj: R knee joint Informed Consent Consent Obtained: Verbal [place] Protocol A moment to CARE was completed. SIGN IN Sign in communication not applicable due to emergent procedure. Personnel directly involved with the procedure wore the appropriate PPE. Special Equipment: N/A Patient/Surrogate Stated/Verified: Patient name, Date of , Relevant allergies and Intended procedure TIME OUT Intended patient and procedure match the source document(s). Consent documented and matches the intended procedure. Relevant labs, photos, and/or imaging studies have been reviewed. Correct side/site marked and visible. Medications required for procedure verified. No fire risk assessment and interventions applicable. No implant(s) inserted. 09/28/2023 1:53 PM The procedure site was prepped in the usual sterile fashion. Site: R knee joint Medications: 6 mg betamethasone acetate-betamethasone sodium phosphate 6 mg/mL Anesthetics: 5 mL lidocaine (PF) 10 mg/mL (1 %) Outcome: Tolerated well, no immediate complications Post-injection instructions were reviewed with the patient and the patient voiced understanding of these instructions. SIGN OUT All instruments, equipment, possible retained foreign bodies accounted for. Ms. Aurelio Bhakta was advised as to contrast therapies and/or to take analgesics/anti-inflammatori es as needed and all contraindications were reviewed. Supporting Information Below: Medications: Current Outpatient Medications Medication Sig TRELEGY ELLIPTA 100-62.5-25 mcg inhalation powder Inhale 1 Puff as instructed once daily. buPROPion SR (WELLBUTRIN SR) 150 mg 12 hr tablet TAKE 1 TABLET ONCE DAILY FOR 3 DAYS, THEN 1 TABLET TWICE DAILY THEREAFTER, BEGIN 2 WEEKS PRIOR TO QUIT DATE. albuterol HFA (PROVENTIL HFA, VENTOLIN HFA) 90 mcg/actuation inhaler Inhale 2 Puffs as instructed every 6 hours as needed. esomeprazole (NEXIUM) 40 mg capsule Take 1 capsule by mouth once daily. metoprolol succinate ER (TOPROL XL) 25 mg 24 hr tablet Take 1 tablet by mouth once daily. montelukast (SINGULAIR) 10 mg tablet Take 1 tablet by mouth daily at bedtime. rosuvastatin (CRESTOR) 10 mg tablet Take 1 tablet by mouth once daily. valsartan (DIOVAN) 80 mg tablet Take 1 tablet by mouth once daily. bumetanide (BUMEX) 1 mg tablet Take 1 tablet by mouth once daily. hydrOXYzine HCl (ATARAX) 50 mg tablet Take 1 tablet by mouth four times a day as needed. (Patient not taking: Reported on 09/28/2023) bumetanide (BUMEX) 1 mg tablet Take 1.5 tablets by mouth once daily. (Patient not taking: Reported on 08/17/2023) ferrous sulfate 325 mg (65 mg iron) tablet Take by mouth. (Patient not taking: Reported on 09/14/2023) No current facility-administered medications for this visit. Allergies: Hydrocodone, Naproxen, Sulfa (Sulfonamide Antibiotics), Tramadol, and Trazodone This note was partially generated using [employer] voice recognition system, and there may be some incorre (more content not included)... [facility] Large Joint Arthro/Inj: R kn ee jointon 09-28-2023 Kenia Thao PA -C 09/28/2023 2:00 PM Large Joint Arthro/Inj: R knee joint Informed Consent Consent Obtained: Verbal [place] Protocol A moment to CARE was completed. SIGN IN Sign in communication not applicable due to emergent procedure. Personnel directly involved with the procedure wore the appropriate PPE. Special Equipment: N/A Patient/Surrogate Stated/Verified: Patient name, Date of , Relevant allergies and Intended procedure TIME OUT Intended patient and procedure match the source document(s). Consent documented and matches the intended procedure. Relevant labs, photos, and/or imaging studies have been reviewed. Correct side/site marked and visible. Medications required for procedure verified. No fire risk assessment and interventions applicable. No implant(s) inserted. 09/28/2023 1:53 PM The procedure site was prepped in the usual sterile fashion. Site: R knee joint Medications: 6 mg betamethasone acetate-betamethasone sodium phosphate 6 mg/mL Anesthetics: 5 mL lidocaine (PF) 10 mg/mL (1 %) Outcome: Tolerated well, no immediate complications Post-injection instructions were reviewed with the patient and the patient voiced understanding of these instructions. SIGN OUT All instruments, equipment, possible retained foreign bodies accounted for. [facility] CNOVon 09-14-2023 CNOV Office Visit (PULMWS ) AURELIO BHAKTA ([id number]) 1960 F LV Date Time Provider Department 09/14/23 1:30 PM MALINDA SCHROEDER PULMWS During your visit today, we recorded the following information about you: Weight 85.3 kg Malinda Schroeder APRN.[employer] 09/14/2023 1:35 PM Signed LUNG SCREENING VISIT PRIMARY CARE PHYSICIAN: Chris Raza MD PULMONARY PROVIDER: Patience Alexandra PA Results will be communicated via letter or electronic record if applicable. Visit Delivery: In Person Patient Visit Type: New to Screening Current or Ex-smoker? [Current Exam Type: baseline LDCT Number of Pack Years: 50 Current smoker (=0) REQUESTER: The referring provider advised the patient to have screening. HISTORY OF PRESENT ILLNESS: Aurelio Bhakta is a 63 year old Active smoker who presents for lung screening. Currently smoking 1 PPD. Patient does not want to do a Cat scan and does not want to know if she has lung cancer. She does not want to undergo chemotherapy or radiation if she does have it. Last 6 Encounter Wt Readings: Date: Wt: 09/14/2023 85.3 kg (188 lb) 08/17/2023 84.4 kg (186 lb) 07/28/2023 83.5 kg (184 lb) 06/23/2023 83.7 kg (184 lb 9.6 oz) 04/29/2023 79.4 kg (175 lb) 12/16/2022 85.7 kg (189 lb) PAST MEDICAL HISTORY Diagnosis Date Anxiety state Elevated cholesterol Essential hypertension Prediabetes PAST SURGICAL HISTORY Procedure Laterality Date >=3 1989 2 C-Sections REPAIR ROTATOR CUFF,ACUTE 2020 FAMILY HISTORY Problem Relation Age of Onset Hypertension Mother Hypertension Sister Diabetes Sister Macular Degen Sister Detached Retina Sister Cataract Sister Cataract Maternal Grandmother Glaucoma No Family History TRELEGY ELLIPTA 100-62.5-25 mcg inhalation powder Inhale 1 Puff as instructed once daily. albuterol HFA (PROVENTIL HFA, VENTOLIN HFA) 90 mcg/actuation inhaler Inhale 2 Puffs as instructed every 6 hours as needed. metoprolol succinate ER (TOPROL XL) 25 mg 24 hr tablet Take 1 tablet by mouth once daily. montelukast (SINGULAIR) 10 mg tablet Take 1 tablet by mouth daily at bedtime. rosuvastatin (CRESTOR) 10 mg tablet Take 1 tablet by mouth once daily. valsartan (DIOVAN) 80 mg tablet Take 1 tablet by mouth once daily. bumetanide (BUMEX) 1 mg tablet Take 1 tablet by mouth once daily. buPROPion SR (WELLBUTRIN SR) 150 mg 12 hr tablet TAKE 1 TABLET ONCE DAILY FOR 3 DAYS, THEN 1 TABLET TWICE DAILY THEREAFTER, BEGIN 2 WEEKS PRIOR TO QUIT DATE. hydrOXYzine HCl (ATARAX) 50 mg tablet Take 1 tablet by mouth four times a day as needed. (Patient not taking: Reported on 09/14/2023) bumetanide (BUMEX) 1 mg tablet Take 1.5 tablets by mouth once daily. (Patient not taking: Reported on 08/17/2023) esomeprazole (NEXIUM) 40 mg capsule Take 1 capsule by mouth once daily. (Patient not taking: Reported on 08/17/2023) ferrous sulfate 325 mg (65 mg iron) tablet Take by mouth. (Patient not taking: Reported on 09/14/2023) ALLERGIES Allergen Reactions Hydrocodone Vomiting Naproxen Anaphylaxis Sulfa (Sulfonamide * Other: See Comments, Rash Tramadol Hives, Rash Trazodone Hives, Rash The medications and allergies were reviewed and reconciled for this patient and deemed current. Lung Cancer Risk Factors: 1.Tobacco Use: Start Age 13, Quit Age: N/A, Average packs per day 1, Pack Years 50 2. Passive Smoke Exposure: Yes, as a Child and as an Adult 3. Personal hx of malignancy: No, Type of Cancer: 4. Significant exposures (1 year or more of exposure): , 5. Race: White 6. Education: Less than High School 7. BMI:Body mass index is 31.77 kg/m?. Patient-entered Height: 5'4 Patient-entered Weight: 190 pounds 8. COPD: Yes 9. Pneumonia in the past 5 years: No 10. Is there a history of lung cancer in a first degree relative? No 11. Is there a history of lung cancer in a non-first degree relative? No 12. Is there a history of any other cancer in a first degree relative? No Health Maintenance Immunization History Administered Date(s) Administered COVID-19 original vaccine, age 12+ yr, monovalent (Fashionchick - PURPLE TOP) 06/28/2020 07/23/2020 COVID-19 vaccine, age 12+ yr, 2022- season (Fashionchick) 04/29/2023 COVID-19 vaccine, age 12+ yr, bivalent (Fashionchick) 01/05/2022 influenza (IIV3) vaccine, trivalent (AFLURIA, FLULAVAL, FLUVIRIN, FLUZONE) 12/15/2022 influenza (IIV4) vaccine, age 6 mo - 64 yr, quadrivalent, PF (AFLURIA, FLUARIX, FLULAVAL, FLUZONE) 01/05/2022 influenza (LAIV) vaccine, nasal, unspecified formulation 01/05/2022 influenza (RIV4) vaccine, recombinant, quadrivalent, PF (FLUBLOK) 12/15/2022 pneumococcal conjugate (PCV20) vaccine, 20 valent (PREVNAR 20) 01/05/2022 01/05/2022 tetanus diphtheria pertussis (Tdap) vaccine, age 7+ yr (ADACEL, BOOSTRIX) 12/16/2022 zoster (RZV) vaccine, recombinant (SHWETHA (more content not included)... Normal [facility] 09-09-2023 CNPN Telephone (PMNA11) AURELIO BHAKTA ([id number]) 1960 F LV Date Time Provider Department 09/09/23 MALINDA SCHROEDER [id number] During your visit today, we recorded the following information about you: Eloisa Van RN 09/10/2023 9:58 AM Addendum 09/09/23: Malinda Schroeder request images from: [facility] Scan [address] [place] [address] Spoke with Anabel; she will push. CT Lung screen 05/30/2021 09/10/23: Film uploaded; notified Elda. Eloisa Van RN Respiratory [facility] Allergies As of Date: 09/09/2023 Noted Allergy Reaction HYDROCODONE 11/29/2021 11 - Vomiting NAPROXEN 11/29/2021 10 - Anaphylaxis SULFA (SULFONAMIDE ANTIBIOTICS) 11/29/2021 14 - Other: See Comments 2 - Rash TRAMADOL 11/29/2021 4 - Hives 2 - Rash TRAZODONE 11/29/2021 4 - Hives 2 - Rash Date Reviewed: 08/21/2023 Reviewed by: Marvel Sam DO - Fully Assessed Reason for Visit: FILM REQ-HARPSTER [Other] Prescriptions as of 09/10/2023 - TRELEGY ELLIPTA 100-62.5-25 mcg inhalation powder Inhale 1 Puff as instructed once daily. - buPROPion SR (WELLBUTRIN SR) 150 mg 12 hr tablet TAKE 1 TABLET ONCE DAILY FOR 3 DAYS, THEN 1 TABLET TWICE DAILY THEREAFTER, BEGIN 2 WEEKS PRIOR TO QUIT DATE. - albuterol HFA (PROVENTIL HFA, VENTOLIN HFA) 90 mcg/actuation inhaler Inhale 2 Puffs as instructed every 6 hours as needed. - hydrOXYzine HCl (ATARAX) 50 mg tablet Take 1 tablet by mouth four times a day as needed. - bumetanide (BUMEX) 1 mg tablet Take 1.5 tablets by mouth once daily. - esomeprazole (NEXIUM) 40 mg capsule Take 1 capsule by mouth once daily. - metoprolol succinate ER (TOPROL XL) 25 mg 24 hr tablet Take 1 tablet by mouth once daily. - montelukast (SINGULAIR) 10 mg tablet Take 1 tablet by mouth daily at bedtime. - rosuvastatin (CRESTOR) 10 mg tablet Take 1 tablet by mouth once daily. - valsartan (DIOVAN) 80 mg tablet Take 1 tablet by mouth once daily. - bumetanide (BUMEX) 1 mg tablet Take 1 tablet by mouth once daily. - ferrous sulfate 325 mg (65 mg iron) tablet Take by mouth. Problem List As Of Date 09/09/2023 Noted Resolved Type 2 diabetes mellitus without complication, *01/16/2022 Class 2 severe obesity due to excess calories w*05/23/2022 Disorder of right rotator cuff [M67.911] 06/30/2022 Obesity, Class I, BMI 30-34.9 [E66.9] 08/27/2022 Chronic obstructive pulmonary disease, unspecif*08/21/2023 Depression, major, single episode, moderate (HC*08/21/2023 Encounter Status:Closed by ELOISA VAN on 09/09/23 Normal [facility] metabolic 2000 panelon 09-07-2023 Albumin [Mass/Vol] 4.7 g/dL Normal 3.9-4.9 [facility] Comment on above: Order Comment: Speci men Type: BLOOD SPECIMENOrdering Facility: [facility] Address: [address] [place] [address] Performed By: #### 2 4323-8 ####[facility]ITALWNCLIA [id number] [place] [address] [place] ALP [Catalytic activity/Vol] 75 U/L Normal 34-123 [facility] Comment on above: Order Comment: Speci men Type: BLOOD SPECIMENOrdering Facility: [facility] Address: [address] [place] [address] Performed By: #### 2 4323-8 ####[facility] [id number] [place] [address] [place] ALT [Catalytic activity/Vol] 25 U/L Normal 7-38 [facility] Comment on above: Order Comment: Speci men Type: BLOOD SPECIMENOrdering Facility: [facility] Address: [address] [place] [address] Performed By: #### 2 4323-8 ####[facility] [id number] [place] [address] [place] Anion gap [Moles/Vol] 10 mmol/L Normal 9-18 [facility] Comment on above: Order Comment: Speci men Type: BLOOD SPECIMENOrdering Facility: [facility] Address: [address] [place] [address] Performed By: #### 2 4323-8 ####[facility]ITAL[facility] [id number] [place] [address] [place] AST [Catalytic activity/Vol] 23 U/L Normal 13-35 [facility] Comment on above: Order Comment: Speci men Type: BLOOD SPECIMENOrdering Facility: [facility] Address: [address] [place] [address] Performed By: #### 2 4323-8 ####[facility] MILLTOWNCLIA [id number] [place] [address] [place] Bilirubin [Mass/Vol] 0.3 mg/dL Normal 0.2-1.3 [facility] Comment on above: Order Comment: Speci men Type: BLOOD SPECIMENOrdering Facility: [facility] Address: [address] [place] [address] Performed By: #### 2 4323-8 ####[facility] MILLWNCLIA [id number] [place] [address] [place] Calcium [Mass/Vol] 10.3 mg/dL High 8.5-10.2 [facility] Comment on above: Order Comment: Speci men Type: BLOOD SPECIMENOrdering Facility: [facility] Address: [address] [place] [address] Performed By: #### 2 4323-8 ####[facility] HOSPITALLIA [id number] [place] [address] [place] Chloride [Moles/Vol] 97 mmol/L Normal 97-105 [facility] Comment on above: Order Comment: Speci men Type: BLOOD SPECIMENOrdering Facility: [facility] Address: [facility] [place] [address] Performed By: #### 2 4323-8 ####[facility] MILLWNCLIA [id number] [place] [address] [place] CO2 [Moles/Vol] 33 mmol/L High 22-30 [facility] Comment on above: Order Comment: Speci men Type: BLOOD SPECIMENOrdering Facility: [facility] Address: [address] [place] [place] [id number] Performed By: #### 2 4323-8 ####[facility] ERNCLIA [id number] [place] [address] [place] Creatinine [Mass/Vol] 0.72 mg/dL Normal 0.58-0.96 [facility] Comment on above: Order Comment: Nicholas barlow Type: BLOOD SPECIMENOrdering Facility: [facility] Address: [address] [place] [address] Performed By: #### 2 4323-8 ####[facility] [id number] [place] [address] [place] Creatinine and Glomerular filtration rate.predicted panel (S/P/Bld) 93 mL/min/1.73m??? Normal >=60 [facility] Comment on above: Order Comment: Nicholas barlow Type: BLOOD SPECIMENOrdering Facility: [facility] Address: [address] [place] [address] Result Comment: Bela mated Glomerular Filtration Rate (eGFR) is calculated using the 2020 CKD-EPI creatinine equation. This equation utilizes serum creatinine, sex, and age as parameters. The creatinine assay has traceable calibration to isotope dilution-mass spectrometry. Refer to KDIGO guidelines for clinical interpretation. In patients with unstable renal function, e.g. those with acute kidney injury, the eGFR may not accurately reflect actual GFR. Performed By: #### 2 4323-8 ####[facility] [id number] [place] [address] [place] Glucose [Mass/Vol] 116 mg/dL High 74-99 [facility] Comment on above: Order Comment: Nicholas barlow Type: BLOOD SPECIMENOrdering Facility: [facility] Address: [address] [place] [address] Result Comment: The [place] Diabetes Association (ADA) provides guidance for cutoff values for fasting glucose and random glucose. The ADA defines fasting as no caloric intake for at least 8 hours. Fasting plasma glucose results between 100 to 125 mg/dL indicate increased risk for diabetes (prediabetes). Fasting plasma glucose results greater than or equal to 126 mg/dL meet the criteria for diagnosis of diabetes. In the absence of unequivocal hyperglycemia, results should be confirmed by repeat testing. In a patient with classic symptoms of hyperglycemia or hyperglycemic crisis, random plasma glucose results greater than or equal to 200 mg/dL meet the criteria for diagnosis of diabetes. Reference: Standards of Medical Care in Diabetes 2016, [place] Diabetes Association. Diabetes Care. 2016.39(Suppl 1). Performed By: #### 2 4323-8 ####[facility] HOSPITALLuz [id number] [place] [address] [place] Potassium [Moles/Vol] 3.7 mmol/L Normal 3.7-5.1 [facility] Comment on above: Order Comment: Speci men Type: BLOOD SPECIMENOrdering Facility: [facility] Address: [address] [place] [address] Performed By: #### 2 4323-8 ####[facility] [id number] [place] [address] [place] Protein [Mass/Vol] 7.6 g/dL Normal 6.3-8.0 [facility] Comment on above: Order Comment: Speci men Type: BLOOD SPECIMENOrdering Facility: [facility] Address: [address] [place], [place] [id number] Performed By: #### 2 4323-8 ####[facility] [id number] [place] [address] [place] Sodium [Moles/Vol] 140 mmol/L Normal 136-144 [facility] Comment on above: Order Comment: Speci men Type: BLOOD SPECIMENOrdering Facility: [facility] Address: [address] [place] [address] Performed By: #### 2 4323-8 ####[facility] [id number] [place] [address] [place] Urea nitrogen [Mass/Vol] 19 mg/dL Normal 7-21 [facility] Comment on above: Order Comment: Speci men Type: BLOOD SPECIMENOrdering Facility: [facility] Address: [address] [place] [address] Performed By: #### 2 4323-8 ####[facility] KOMAL BLACKWOODMENANIRLANDA [id number] [place] [address] [place] Marisol 09-04-2023 CNPN Telephone (AKPRAD) AURELIO BHAKTA ([id number]) 1960 F Date Time Provider Department 09/04/23 MARVEL SAM During your visit today, we recorded the following information about you: Marvel Sam DO 09/04/2023 2:16 PM Signed Please inform the patient of the following lab results: - Her urine aiaacjd-xj-gmoxwiudcp ratio [a yearly urine test that we perform to assess for any damage sustained by the kidneys due to diabetes] is slightly elevated [signifying possible renal dysfunction]. Is she presently taking her valsartan? This medication is kidney-protective and can help mitigate the progression of kidney disease. I am also going to order a metabolic panel [just one blood test] to further assess her kidney function. Thanks so much, DO Darlyn Alvares Maria, LPN 09/09/2023 2:53 PM Signed Patient had the CMP drawn on 09/07/23. Patient is asking about the results. She is still taking the valsartan daily. Almas [address] [employer] INST[employer]ER 09/09/23 2:53 PM Allergies As of Date: 09/04/2023 Noted Allergy Reaction HYDROCODONE 11/29/2021 11 - Vomiting NAPROXEN 11/29/2021 10 - Anaphylaxis SULFA (SULFONAMIDE ANTIBIOTICS) 11/29/2021 14 - Other: See Comments 2 - Rash TRAMADOL 11/29/2021 4 - Hives 2 - Rash TRAZODONE 11/29/2021 4 - Hives 2 - Rash Date Reviewed: 08/21/2023 Reviewed by: Marvel Sam DO - Fully Assessed Reason for Visit: Results [95] Primary Visit Diagnosis:Type 2 diabetes mellitus without complication, without long-term current use of insulin (HCC) [E11.9] Order(s):COMPREHENSIVE METABOLIC PANEL [SQCMP] Order #: [id number] FUTURE Prescriptions as of 09/09/2023 - TRELEGY ELLIPTA 100-62.5-25 mcg inhalation powder Inhale 1 Puff as instructed once daily. - buPROPion SR (WELLBUTRIN SR) 150 mg 12 hr tablet TAKE 1 TABLET ONCE DAILY FOR 3 DAYS, THEN 1 TABLET TWICE DAILY THEREAFTER, BEGIN 2 WEEKS PRIOR TO QUIT DATE. - albuterol HFA (PROVENTIL HFA, VENTOLIN HFA) 90 mcg/actuation inhaler Inhale 2 Puffs as instructed every 6 hours as needed. - hydrOXYzine HCl (ATARAX) 50 mg tablet Take 1 tablet by mouth four times a day as needed. - bumetanide (BUMEX) 1 mg tablet Take 1.5 tablets by mouth once daily. - esomeprazole (NEXIUM) 40 mg capsule Take 1 capsule by mouth once daily. - metoprolol succinate ER (TOPROL XL) 25 mg 24 hr tablet Take 1 tablet by mouth once daily. - montelukast (SINGULAIR) 10 mg tablet Take 1 tablet by mouth daily at bedtime. - rosuvastatin (CRESTOR) 10 mg tablet Take 1 tablet by mouth once daily. - valsartan (DIOVAN) 80 mg tablet Take 1 tablet by mouth once daily. - bumetanide (BUMEX) 1 mg tablet Take 1 tablet by mouth once daily. - ferrous sulfate 325 mg (65 mg iron) tablet Take by mouth. Problem List As Of Date 09/04/2023 Noted Resolved Type 2 diabetes mellitus without complication, *01/16/2022 Class 2 severe obesity due to excess calories w*05/23/2022 Disorder of right rotator cuff [M67.911] 06/30/2022 Obesity, Class I, BMI 30-34.9 [E66.9] 08/27/2022 Chronic obstructive pulmonary disease, unspecif*08/21/2023 Depression, major, single episode, moderate (HC*08/21/2023 Encounter Status:Closed by MARVEL SAM on 09/04/23 Normal [facility] ALBUMIN/CREATININE RATIO, UR INEon 09-03-2023 Albumin DL <= 20 mg/L (U) [Mass/Vol] 15.5 mg/L Normal [facility] Comment on above: Order Comment: Speci men Type: URINE SPECIMENOrdering Facility: [facility] Address: [address] [place] [address] Performed By: #### U ACR ####[facility] LABCLIA [id number] [address] STATES [facility] Albumin/Creatinine (U) [Mass ratio] 111 mg/g High <30 [facility] Comment on above: Order Comment: Speci men Type: URINE SPECIMENOrdering Facility: [facility] Address: [address] [place] [address] Result Comment: Adul t Male and Female Nephrotic Criteria: <30 mg/g is considered normal to mildly increased 30-300 mg/g is considered moderately increased >300 mg/g is considered severely increased KDIGO. (2013). KDIGO 2012 Clinical Practice Guideline for the Evaluation and Management of Chronic Kidney Disease. Official Journal of the International Society of Nephrology, 3(1), 1-150. Performed By: #### U ACR ####[facility] LABIA [id number] [address] STATES OF [facility] Creatinine (U) [Mass/Vol] 14.0 mg/dL Low 20.0-300.0 [facility] Comment on above: Order Comment: Speci men Type: URINE SPECIMENOrdering Facility: [facility] Address: [address] [place] [address] Performed By: #### U ACR ####[facility] LABIA [id number] [address] [place] CNCOon 08-26-2023 CNCO HNO ID: [id number] Author: COORDINATOR, MAMMOGRAPHY, ? Service: ? Author Type: Physician Type: Letter Filed: 08/26/2023 08:02 Note Text: August 26, 2023 PID: [id number] Aurelio Bhakta [address] [place] [address] Dear Paris Livia, We are pleased to inform you that the results of your recent breast imaging exam on 08/25/2023 are normal. Early detection of cancer is very important. We also understand recommendations regarding breast cancer screening are controversial. Please discuss with your primary care provider which strategy is best for you and whether a mammogram is right for you. Your imaging studies and report will be kept on file at [facility] as part of your permanent medical record and are available for your continuing care. Thank you for allowing us to help in meeting your health care needs. Sincerely, Dr. Singer Interpreting Radiologist [facility] (Normal over 40) Normal [facility] SCREENINGon 08-25-2023 [facility] SCREENING * * *Final Report* * * DATE OF EXAM: Aug 25 2023 2:23PM WRW [id number] - [facility] SCREENING / PROCEDURE REASON: Encounter for screening mammogram for breast cancer * * * * Physician Interpretation * * * * RESULT: #[id number] - [facility] SCREENING BILATERAL DIGITAL SCREENING MAMMOGRAM WITH CAD: 08/25/2023 HISTORY: Encounter For Screening Mammogram For Breast Cancer / Screening Mammogram-Patient reports NO symptoms. /priors available for comparison /SEE TECH NOTE. RESULT: TECHNIQUE: The study was acquired using full field digital technology and interpreted from soft copy. Current study was also evaluated with a Computer Aided Detection (CAD). 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 The breasts are almost entirely fatty. No significant masses, calcifications, or other findings are seen in either breast. There has been no significant interval change. IMPRESSION: NEGATIVE There is no mammographic evidence of malignancy. A 1 year screening mammogram is recommended. Edie diamond/jay:08/26/2023 08:02:52 Circulation Manager(s): RT Terri(R)(M), [facility] letter sent: Normal over 40 Mammogram BI-RADS: 1 Negative Multiple national specialty organizations have released breast cancer screening guidelines for women at average risk for developing breast cancer - guidelines that are based on both evidence and opinion, yet differ on when to start and how often to screen for breast cancer. With representation from Breast Imaging, Internal Medicine, Women's Health, Family Medicine, and Medical/Surgical Oncology, the [facility] has carefully reviewed the data and reached the following consensus: 1) All women should engage in shared decision-making with their providers to decide when to start and how often to screen; 2) All women should have the opportunity to start screening mammography at age 40; 3) For women ages 45-55, we recommend annual screening mammograms; 4) For women ages 55 and over, we support both the transition from an annual to a biennial interval if this aligns more with patient's values and preferences, or continuation with annual screening; 5) All women should discuss with their providers when to stop screening mammograms. Commander Internal Affairs: Jay Transcribe Date/Time: Aug 25 2023 2:03P Dictated by: EDIE SINGER MD This examination was interpreted and the report reviewed and electronically signed by: EDIE SINGER MD on Aug 26 2023 8:02AM EST [id number] Normal [facility] 08-20-2023 CNPN Telephone (AGINTMAC) AURELIO BHAKTA ([id number]) 1960 F [place] Date Time Provider Department 08/20/23 ALMAS SANTIZO During your visit today, we recorded the following information about you: Almas Santizo LPN 08/20/2023 2:30 PM Signed Patient called asking which provider Dr Sam was referring to her. Patient wants to set up her follow up/transfer to new PCP resident in November. Patient could not remember name. Did you have someone specific in mind. She notes that it is another female provider. Thanks. Almas Santizo LPN 08/20/23 2:29 PM Marvel Sam DO 08/22/2023 9:36 PM Signed She can be set up with either Dr. Jain or Dr. Gonzalez! Thanks so much! Best, DO Darlyn Alvares Maria, LPN 10/23/2023 1:05 PM Signed Patient set for [address] Segundo. Almas Santizo LPN 10/23/23 1:05 PM Allergies As of Date: 08/20/2023 Noted Allergy Reaction HYDROCODONE 11/29/2021 11 - Vomiting NAPROXEN 11/29/2021 10 - Anaphylaxis SULFA (SULFONAMIDE ANTIBIOTICS) 11/29/2021 14 - Other: See Comments 2 - Rash TRAMADOL 11/29/2021 4 - Hives 2 - Rash TRAZODONE 11/29/2021 4 - Hives 2 - Rash Date Reviewed: 08/17/2023 Reviewed by: Apple Tam LPN - Fully Assessed Reason for Visit: Patient Question [5327] Prescriptions as of 10/23/2023 - bumetanide (BUMEX) 1 mg tablet Take 1 tablet by mouth once daily. - albuterol HFA (PROVENTIL HFA, VENTOLIN HFA) 90 mcg/actuation inhaler Inhale 2 Puffs as instructed every 6 hours as needed. - valsartan (DIOVAN) 80 mg tablet Take 1 tablet by mouth once daily. - hydrOXYzine HCl (ATARAX) 50 mg tablet Take 1 tablet by mouth four times a day as needed. - bumetanide (BUMEX) 1 mg tablet Take 1 tablet by mouth once daily. - TRELEGY ELLIPTA 100-62.5-25 mcg inhalation powder Inhale 1 Puff as instructed once daily. - buPROPion SR (WELLBUTRIN SR) 150 mg 12 hr tablet TAKE 1 TABLET ONCE DAILY FOR 3 DAYS, THEN 1 TABLET TWICE DAILY THEREAFTER, BEGIN 2 WEEKS PRIOR TO QUIT DATE. - bumetanide (BUMEX) 1 mg tablet Take 1.5 tablets by mouth once daily. - esomeprazole (NEXIUM) 40 mg capsule Take 1 capsule by mouth once daily. - metoprolol succinate ER (TOPROL XL) 25 mg 24 hr tablet Take 1 tablet by mouth once daily. - montelukast (SINGULAIR) 10 mg tablet Take 1 tablet by mouth daily at bedtime. - rosuvastatin (CRESTOR) 10 mg tablet Take 1 tablet by mouth once daily. - ferrous sulfate 325 mg (65 mg iron) tablet Take by mouth. Problem List As Of Date 08/20/2023 Noted Resolved Type 2 diabetes mellitus without complication, *01/16/2022 Class 2 severe obesity due to excess calories w*05/23/2022 Disorder of right rotator cuff [M67.911] 06/30/2022 Obesity, Class I, BMI 30-34.9 [E66.9] 08/27/2022 Encounter Status:Closed by ALMAS SANTIZO on 10/23/23 Normal [facility] CNOVon 08-17-2023 CNOV Office Visit ([facility]) AURELIO BHAKTA ([id number]) 1960 F [place] Date Time Provider Department 08/17/23 1:20 PM MARVEL SAM During your visit today, we recorded the following information about you: Temperature Pulse Respiration Blood pressure 98 degrees 82/minute 18/minute 118/56 Weight Height 84.4 kg 1.638 m Marvel Sam DO 08/21/2023 8:03 AM Signed [facility] Marvel Sam DO ASSESSMENT/PLAN: 1. Type 2 diabetes mellitus without complication, without long-term current use of insulin (HCC) - ICD9: 250.00, ICD10: E11.9 (primary diagnosis) - Hemoglobin A1c 6.6% as of 06/2023 [obtained by a [facility] nurse, documented in a telephone encounter], from 6.1% on 03/23/2023 - Continue current medications: presently not on any hypoglycemics [she is prone to GI upset, and did not tolerate metformin or Ozempic], but continue her Crestor 10mg - Blood glucose monitoring on a once daily schedule - Counseled on healthy diet and regular exercise - Discussed need for and benefit of weight loss [BMI 31.43 kg/(m2)] - ALBUMIN/CREATININE RATIO, URINE 2. Encounter for screening mammogram for breast cancer - ICD9: V76.12, ICD10: Z12.31 - AYANA SCREENING 3. Class 2 severe obesity due to excess calories with serious comorbidity and body mass index (BMI) of 36.0 to 36.9 in adult (HCC) - ICD9: 278.01, V85.36, ICD10: E66.01, Z68.36 - Weight presently 186 lbs, up from 175 lb in 02/2024 - Previously followed with Obesity Medicine, felt that she was not having any success - Counseled extensively on diet and exercise; has been having some trouble doing her daily walking [which is how she used to exercise] due to her knee arthritis so we discussed swimming as an alternative [and addressing the knee with her Orthopedist] 4. Advance care planning - ICD9: V65.49, ICD10: Z71.89 - ADVANCE CARE PLAN DISCUSSION - Majority of her adult children would be her decision-makers - FULL CODE 5. Chronic obstructive pulmonary disease, unspecified COPD type (HCC) - ICD9: 496, ICD10: J44.9 - Seeing Pulmonology / Smoking Cessation, who is starting her on Wellbutrin [she picked up the prescription, but has not taken it yet] - Has a visit set up for Lung Cancer Screening - Continue home Trelegy Ellipta and montelukast 6. Anxiety - ICD9: 300.00, ICD10: F41.9 7. Depression, major, single episode, moderate (HCC) - ICD9: 296.22, ICD10: F32.1 8. Depression screen - ICD9: V79.0, ICD10: Z13.31 - Weaned herself off of her hydroxyzine, and has overall been doing well - Will be starting Wellbutrin as a part of her smoking cessation plan - BEHAVIORAL HEALTH SCREENING unremarkable 9. Chronic bilateral lower extremity edema - Continue Bumex Marvel Sam, PGY-3 SUBJECTIVE: Aurelio Bhakta is a 63 year old female here today for a 3-month follow-up. HPI Ms. Bhakta is a 63-year-old female with a past medical history significant for intellectual disability, COPD, tobacco dependence, peptic ulcer disease, anxiety, depression, osteoarthritis of the right knee [sees Ortho and gets injections], adhesive capsulitis of the right shoulder, chronic bilateral lower extremity edema, essential hypertension, hyperlipidemia, iron deficiency anemia, GERD, and obesity. She presents today for a 3-month follow-up, and she has no particular complaints or concerns. Health Maintenance: - Had colonoscopy / EGD done in 09/2021 when she was having her GI symptoms, both unremarkable PAST MEDICAL HISTORY Diagnosis Date Anxiety state Elevated cholesterol Essential hypertension Prediabetes PAST SURGICAL HISTORY Procedure Laterality Date >=3 1989 2 C-Sections REPAIR ROTATOR CUFF,ACUTE 2020 Social History Tobacco Use Smoking status: Every Day Packs/day: 1.00 Years: 40.00 Additional pack years: 0.00 Total pack years: 40.00 Types: Cigarettes Smokeless tobacco: Never Vaping Use Vaping Use: Never used Substance Use Topics Alcohol use: Not Currently Drug use: Not Currently FAMILY HISTORY Problem Relation Age of Onset Hypertension Mother Hypertension Sister Diabetes Sister Macular Degen Sister Detached Retina Sister Cataract Sister Cataract Maternal Grandmother Glaucoma No Family History PAIN EVALUATION No data found in the last 1 encounters. ALLERGIES Allergen Reactions Hydrocodone Vomiting Naproxen Anaphylaxis Sulfa (Sulfonamide * Other: See Comments, Rash Tramadol Hives, Rash Trazodone Hives, Rash Medication List prior to visit Current Outpatient Medications Medication Sig metoprolol succinate ER (TOPROL XL) 25 mg 24 hr tablet Take 1 tablet by mouth once daily. montelukast (SINGULAIR) 10 mg tablet Take 1 tablet by mouth daily at bedtime. rosuvastatin (CRESTOR) 10 mg tablet Take 1 tablet by mouth once daily. [START ON 08/27/2023] buPROPion SR (WELLBUTRIN SR) 150 mg 12 (more content not included)... Normal [facility] CNPBrittney 06-12-2023 [facility] Telephone (AGPromolta) AURELIO BHAKTA ([id number]) 1960 F Date Time Provider Department 06/12/23 CHRIS RAZA During your visit today, we recorded the following information about you: Anabell Davis 06/12/2023 10:23 AM Signed Please route telephone encounter to the Clerical Pool ([facility] Clefrench Coleman with [facility] house call nurse called to report the patient's A1c today was 6.6. Anabell Davis, Maintenance Engineer [employer] June 12, 2023 10:21 AM Allergies As of Date: 06/12/2023 Noted Allergy Reaction HYDROCODONE 11/29/2021 11 - Vomiting NAPROXEN 11/29/2021 10 - Anaphylaxis SULFA (SULFONAMIDE ANTIBIOTICS) 11/29/2021 14 - Other: See Comments 2 - Rash TRAMADOL 11/29/2021 4 - Hives 2 - Rash TRAZODONE 11/29/2021 4 - Hives 2 - Rash Date Reviewed: 04/29/2023 Reviewed by: Amada Archer LPN - Fully Assessed Reason for Visit: Patient Update [1234] Prescriptions as of 06/30/2023 - Nicotine Polacrilex [address] 1 Lozenge between cheek and gum every 2 hours as needed (smoking). - varenicline (CHANTIX STARTING MONTH BOX) 0.5 mg (11)- 1 mg (42) tablet Use as directed. - varenicline (CHANTIX CONTINUING MONTH BOX) 1 mg tablet Take 1 tablet by mouth two times a day. - albuterol HFA (PROVENTIL HFA, VENTOLIN HFA) 90 mcg/actuation inhaler Inhale 2 Puffs as instructed every 6 hours as needed. - hydrOXYzine HCl (ATARAX) 50 mg tablet Take 1 tablet by mouth four times a day as needed. - TRELEGY ELLIPTA 100-62.5-25 mcg inhalation powder Inhale 1 Puff as instructed once daily. - valsartan (DIOVAN) 80 mg tablet Take 1 tablet by mouth once daily. - bumetanide (BUMEX) 1 mg tablet Take 1.5 tablets by mouth once daily. - bumetanide (BUMEX) 1 mg tablet Take 1 tablet by mouth once daily. - esomeprazole (NEXIUM) 40 mg capsule Take 1 capsule by mouth once daily. - metoprolol succinate ER (TOPROL XL) 25 mg 24 hr tablet Take 1 tablet by mouth once daily. - montelukast (SINGULAIR) 10 mg tablet Take 1 tablet by mouth daily at bedtime. - rosuvastatin (CRESTOR) 10 mg tablet Take 1 tablet by mouth once daily. - ferrous sulfate 325 mg (65 mg iron) tablet Take by mouth. Problem List As Of Date 06/12/2023 Noted Resolved Type 2 diabetes mellitus without complication, *01/16/2022 Class 2 severe obesity due to excess calories w*05/23/2022 Disorder of right rotator cuff [M67.911] 06/30/2022 Obesity, Class I, BMI 30-34.9 [E66.9] 08/27/2022 Encounter Status:Closed by ANABELL DAVIS on 06/30/23 [facility] CNPNon 05-06-2023 CNPN Telephone (AGINTMAC) AURELIO BHAKTA ([id number]) 1960 F [place] Date Time Provider Department 05/06/23 MARVEL SAM During your visit today, we recorded the following information about you: Marilyn Duran 05/06/2023 9:45 AM Signed Patient called to report blood pressures: 05/01/23 152/83 05/02/23 162/90 05/04/23 124/74 05/05/23 121/101 05/06/23 130/76 Marilyn Duran, Maintenance Engineer [employer] May 06, 2023 9:42 AM Marvel Sam DO 05/08/2023 8:23 AM Signed Thank you so much for passing these along. Per Dr. Raza, the concern was that maybe her pressures were running low, so he wanted her to send a week's worth of values. Overall, it looks like her pressures stabilized towards the end of the week - but since there was quite a large difference between the blood pressures recorded on the first couple of days compared to the last, we are going to have her record her blood pressures again for another week and send us the results. At that time, we can decide if anything needs to be adjusted. Thanks so much, DO Roger Alvares Nina 05/08/2023 2:39 PM Signed Patient aware, agreed to call in a week. Marilyn Duran, Maintenance Engineer [employer] May 08, 2023 2:39 PM Allergies As of Date: 05/06/2023 Noted Allergy Reaction HYDROCODONE 11/29/2021 11 - Vomiting NAPROXEN 11/29/2021 10 - Anaphylaxis SULFA (SULFONAMIDE ANTIBIOTICS) 11/29/2021 14 - Other: See Comments 2 - Rash TRAMADOL 11/29/2021 4 - Hives 2 - Rash TRAZODONE 11/29/2021 4 - Hives 2 - Rash Date Reviewed: 04/29/2023 Reviewed by: Amada Archer LPN - Fully Assessed Reason for Visit: Patient Update [1234] Cmt: BPs Prescriptions as of 05/08/2023 - albuterol HFA (PROVENTIL HFA, VENTOLIN HFA) 90 mcg/actuation inhaler Inhale 2 Puffs as instructed every 6 hours as needed. - hydrOXYzine HCl (ATARAX) 50 mg tablet Take 1 tablet by mouth four times a day as needed. - TRELEGY ELLIPTA 100-62.5-25 mcg inhalation powder Inhale 1 Puff as instructed once daily. - valsartan (DIOVAN) 80 mg tablet Take 1 tablet by mouth once daily. - bumetanide (BUMEX) 1 mg tablet Take 1.5 tablets by mouth once daily. - bumetanide (BUMEX) 1 mg tablet Take 1 tablet by mouth once daily. - esomeprazole (NEXIUM) 40 mg capsule Take 1 capsule by mouth once daily. - metoprolol succinate ER (TOPROL XL) 25 mg 24 hr tablet Take 1 tablet by mouth once daily. - montelukast (SINGULAIR) 10 mg tablet Take 1 tablet by mouth daily at bedtime. - rosuvastatin (CRESTOR) 10 mg tablet Take 1 tablet by mouth once daily. - ferrous sulfate 325 mg (65 mg iron) tablet Take by mouth. Problem List As Of Date 05/06/2023 Noted Resolved Type 2 diabetes mellitus without complication, *01/16/2022 Class 2 severe obesity due to excess calories w*05/23/2022 Disorder of right rotator cuff [M67.911] 06/30/2022 Obesity, Class I, BMI 30-34.9 [E66.9] 08/27/2022 Encounter Status:Closed by MARILYN DURAN on 05/08/23 Normal [facility] 25(OH)D3 SerPl-mCncon 2023 25-hydroxyvitamin D3 [Mass/Vol] 31.5 ng/mL Normal >=30.0 [facility] Comment on above: Order Comment: Speci men Type: BLOOD SPECIMENOrdering Facility: [facility] Address: [address] [place] [address] Result Comment: Clas sification of 25 OH Vitamin D status: Deficiency: <= 20.0 ng/ml. Insufficiency: 21.0-29.0 ng/ml. Sufficiency: >= 30.0 ng/ml. Performed By: #### 1 989-3 ####[facility] LABORATORYCLIA [id number] [place] [address] [facility] CN[facility] 04-29-2023 CNOV Office Visit ([facility]) AURELIO BHAKTA ([id number]) 1960 [facility] Date Time Provider Department 04/29/23 11:20 AM CHRIS RAZA During your visit today, we recorded the following information about you: Temperature Pulse Respiration Blood pressure 97.8 degrees 65/minute 18/minute 104/57 Weight Height 79.4 kg 1.638 m Chris Raza MD 04/30/2023 9:13 AM Addendum Chris Raza MD [facility] Date of Evaluation: 04/29/2023 Patient Name: Aurelio Bhakta : 1960 Chief Complaint: Patient presents with: Follow Up: Pain after making bowel movement Nursing Intake: There are no exam notes on file for this visit. Subjective Ms. Bhakta is a pleasant 63-year-old female who presents for follow-up. HPI Patient was last seen in our office on 12/16/2022. She was referred to physical therapy for adhesive capsulitis of her right shoulder. Patient states that she was unable to attend secondary to insurance issues. Her right shoulder still freezes occasionally, which she manages with movement exercises. Patient follows with Endocrinology for management of her diabetes (and undergoes foot examination with them). In-office A1c today 6.1%, down from 6.2% on 11/27/2022. Weight today 175 lbs, down from 189 lbs on 12/16/2022. Previously followed with Obesity Medicine, but no longer. Previously on semaglutide, but states she has not used it in three months. Blood pressure today 104/57 mm Hg, with similar reading on repeat measurement. Blood pressure has likely improved with continued weight loss, and patient is likely overmedicated. Was evaluated by Optometry on 12/18/2022 with bilateral cataracts noted, and no finding of diabetic retinopathy. She has to follow-up in 1 year. Previously on iron supplementation; however, not taking it secondary to constipation. Manages constipation with obyk-dex-wnaviii fiber supplementation. Has decreased her use of hydroxyzine to one daily. Social history: Smokes 1 pack/day for the past 47 years; no alcohol use; no drug use; has increased her walking and stretching exercises. In February 2023 underwent hemorrhoidectomy and lateral internal sphincterotomy for anal fissure at [facility] with Dr. Belcher. Past medical history is as below. Review of Systems Constitutional: Negative for chills, diaphoresis and fever. HENT: Negative for hearing loss. Eyes: Negative for visual disturbance. Respiratory: Negative for cough, choking, chest tightness, shortness of breath and wheezing. Cardiovascular: Negative for chest pain, palpitations and leg swelling. Gastrointestinal: Positive for constipation (managed with fiber supplements). Negative for abdominal pain, diarrhea, nausea and vomiting. Genitourinary: Negative for dysuria and hematuria. Musculoskeletal: Positive for arthralgias (chronic right knee pain; follows with Orthopedics). Neurological: Negative for dizziness, weakness, light-headedness, numbness and headaches. Psychiatric/Behavioral: Negative for agitation, self-injury and suicidal ideas. PAST MEDICAL HISTORY Diagnosis Date Elevated cholesterol Essential hypertension Prediabetes PAST SURGICAL HISTORY Procedure Laterality Date >=3 1989 2 C-Sections REPAIR ROTATOR CUFF,ACUTE 2020 Social History Tobacco Use Smoking status: Every Day Packs/day: 1 Types: Cigarettes Smokeless tobacco: Never Vaping Use Vaping Use: Never used Substance Use Topics Alcohol use: Not Currently Drug use: Not Currently FAMILY HISTORY Problem Relation Age of Onset Hypertension Mother Hypertension Sister Diabetes Sister Macular Degen Sister Detached Retina Sister Cataract Sister Cataract Maternal Grandmother Glaucoma No Family History There are no active hospital problems to display for this patient. PAIN EVALUATION 04/27/2023 0915 04/29/2023 1057 Pain Level: 8 5 Pain Location: Rectum Buttocks-Right Description: Aching;Pressure Throbbing;Stabbing Duration Units: Hours Months Frequency: Continuous Intermittent Intervention/Comfort measure: -- Reposition Current Outpatient Medications Medication Sig bumetanide (BUMEX) 1 mg tablet Take 1.5 tablets by mouth once daily. TRELEGY ELLIPTA 100-62.5-25 mcg inhalation powder Inhale 1 Puff as instructed once daily. hydrOXYzine HCl (ATARAX) 50 mg tablet Take 1 tablet by mouth four times a day as needed. albuterol HFA (PROVENTIL HFA, VENTOLIN HFA) 90 mcg/actuation inhaler Inhale 2 Puffs as instructed every 6 hours as needed. esomeprazole (NEXIUM) 40 mg capsule Take 1 capsule by mouth once daily. metoprolol succinate ER (TOPROL XL) 25 mg 24 hr tablet Take 1 tablet by mouth once daily. montelukast (SINGULAIR) 10 mg tablet Take 1 tablet by mouth daily at bedtime. rosuvastatin (CRESTOR) 10 (more content not included)... Normal [facility] CNPBrittney 04-08-2023 [facility] Telephone (JYOTIMAC) AURELIO BHAKTA ([id number]) 1960 F Date Time Provider Department 04/08/23 MARVEL SAM During your visit today, we recorded the following information about you: Marilyn Duran 04/08/2023 11:49 AM Signed Patient called, requests form for [facility] to be signed so that she may attend adult day program. Form received and in PCP folder. Please assist. Marilyn Duran, Maintenance Engineer [employer] April 08, 2023 11:48 AM Anabell Davis 04/13/2023 10:09 AM Signed Please route telephone encounter to the Clerical Pool ([facility] Clerical Pool) Patient called again regarding this form. Anabell Davis [employer] April 13, 2023 10:09 AM Marvel Sam DO 04/13/2023 4:28 PM Signed Thank you so much for letting me know - I filled out the form just now and placed it in the to be faxed tray. Thanks again, DO Susan Alvares Danielle 04/13/2023 4:43 PM Signed Please route telephone encounter to the Clerical Pool ([facility] Clerical Pool) Thanks. Noted Anabell Davis Maintenance Engineer [employer] April 13, 2023 4:43 PM Allergies As of Date: 04/08/2023 Noted Allergy Reaction HYDROCODONE 11/29/2021 11 - Vomiting NAPROXEN 11/29/2021 10 - Anaphylaxis SULFA (SULFONAMIDE ANTIBIOTICS) 11/29/2021 14 - Other: See Comments 2 - Rash TRAMADOL 11/29/2021 4 - Hives 2 - Rash TRAZODONE 11/29/2021 4 - Hives 2 - Rash Date Reviewed: 03/23/2023 Reviewed by: Divya Gray RN - Fully Assessed Reason for Visit: Forms [913] Prescriptions as of 04/13/2023 - bumetanide (BUMEX) 1 mg tablet Take 1.5 tablets by mouth once daily. - TRELEGY ELLIPTA 100-62.5-25 mcg inhalation powder Inhale 1 Puff as instructed once daily. - hydrOXYzine HCl (ATARAX) 50 mg tablet Take 1 tablet by mouth four times a day as needed. - bumetanide (BUMEX) 1 mg tablet Take 1 tablet by mouth once daily. - albuterol HFA (PROVENTIL HFA, VENTOLIN HFA) 90 mcg/actuation inhaler Inhale 2 Puffs as instructed every 6 hours as needed. - semaglutide (OZEMPIC) 2 mg/dose (8 mg/3 mL) pen injector Inject 2 mg subcutaneously one time a week. - esomeprazole (NEXIUM) 40 mg capsule Take 1 capsule by mouth once daily. - metoprolol succinate ER (TOPROL XL) 25 mg 24 hr tablet Take 1 tablet by mouth once daily. - montelukast (SINGULAIR) 10 mg tablet Take 1 tablet by mouth daily at bedtime. - rosuvastatin (CRESTOR) 10 mg tablet Take 1 tablet by mouth once daily. - valsartan (DIOVAN) 160 mg tablet Take 1 tablet by mouth once daily. - ferrous sulfate 325 mg (65 mg iron) tablet Take by mouth. - alcohol swabs Use with blood glucose test 2 times daily. Insulin Dep? No - Lancets lancets Use with blood glucose test 2 times daily. Insulin Dep? No - blood sugar diagnostic test strip Use with blood glucose test 2 times daily, Insulin Dep? No - loperamide (IMODIUM) 2 mg cap(s) Take 1 capsule by mouth four times daily as needed for diarrhea for up to 15 days. - hemorrhoid ointment (PREPARATION H) 0.25-14-74.9 % rectal ointment by RECTAL route twice daily as needed. - ONETOUCH DELICA PLUS LANCET 30 gauge twice daily. - glucose 4 gram chewable tablet Take 4 tablets by mouth as needed for low blood sugar. Problem List As Of Date 04/08/2023 Noted Resolved Type 2 diabetes mellitus without complication, *01/16/2022 Class 2 severe obesity due to excess calories w*05/23/2022 Disorder of right rotator cuff [M67.911] 06/30/2022 Obesity, Class I, BMI 30-34.9 [E66.9] 08/27/2022 Encounter Status:Closed by MARILYN DURAN on 04/10/23 [facility] Miguel 03-10-2023 CNCO Letter Text [facility] CNPBrittney 03-06-2023 TERRENCEN Telephone (AGENDOG) AURELIO BHAKTA ([id number]) 1960 F LV Date Time Provider Department 03/06/23 LUZMA BARILLAS During your visit today, we recorded the following information about you: Peewee Osorio 03/06/2023 8:52 AM Signed 1st Attempt LVM for patient to call and schedule 3 month f/u with Luzma Barillas. Peewee Osorio March 06, 2023 8:51 AM Ree Campos 03/09/2023 9:28 AM Signed 2nd attempt. Patient answered stated she was in the doctor's office and to call her back. She hung up. Ree Campos March 09, 2023 9:28 AM Ree Campos 03/10/2023 8:36 AM Signed 3rd attempt. for patient to call and schedule 3 month f/u with Luzma Barillas. Sent unable to reach letter. Ree Campos March 10, 2023 8:35 AM Allergies As of Date: 03/06/2023 Noted Allergy Reaction HYDROCODONE 11/29/2021 11 - Vomiting NAPROXEN 11/29/2021 10 - Anaphylaxis SULFA (SULFONAMIDE ANTIBIOTICS) 11/29/2021 14 - Other: See Comments 2 - Rash TRAMADOL 11/29/2021 4 - Hives 2 - Rash TRAZODONE 11/29/2021 4 - Hives 2 - Rash Date Reviewed: 12/18/2022 Reviewed by: Adeline Huerta OD - Fully Assessed Prescriptions as of 03/10/2023 - bumetanide (BUMEX) 1 mg tablet Take 1.5 tablets by mouth once daily. - bumetanide (BUMEX) 1 mg tablet Take 1 tablet by mouth once daily. - TRELEGY ELLIPTA 100-62.5-25 mcg inhalation powder Inhale 1 Puff as instructed once daily. - hydrOXYzine HCl (ATARAX) 50 mg tablet Take 1 tablet by mouth four times a day as needed. - albuterol HFA (PROVENTIL HFA, VENTOLIN HFA) 90 mcg/actuation inhaler Inhale 2 Puffs as instructed every 6 hours as needed. - semaglutide (OZEMPIC) 2 mg/dose (8 mg/3 mL) pen injector Inject 2 mg subcutaneously one time a week. - esomeprazole (NEXIUM) 40 mg capsule Take 1 capsule by mouth once daily. - metoprolol succinate ER (TOPROL XL) 25 mg 24 hr tablet Take 1 tablet by mouth once daily. - montelukast (SINGULAIR) 10 mg tablet Take 1 tablet by mouth daily at bedtime. - rosuvastatin (CRESTOR) 10 mg tablet Take 1 tablet by mouth once daily. - valsartan (DIOVAN) 160 mg tablet Take 1 tablet by mouth once daily. - ferrous sulfate 325 mg (65 mg iron) tablet Take by mouth. - alcohol swabs Use with blood glucose test 2 times daily. Insulin Dep? No - Lancets lancets Use with blood glucose test 2 times daily. Insulin Dep? No - blood sugar diagnostic test strip Use with blood glucose test 2 times daily, Insulin Dep? No - loperamide (IMODIUM) 2 mg cap(s) Take 1 capsule by mouth four times daily as needed for diarrhea for up to 15 days. - hemorrhoid ointment (PREPARATION H) 0.25-14-74.9 % rectal ointment by RECTAL route twice daily as needed. - ONETOUCH DELICA PLUS LANCET 30 gauge twice daily. - glucose 4 gram chewable tablet Take 4 tablets by mouth as needed for low blood sugar. Problem List As Of Date 03/06/2023 Noted Resolved Type 2 diabetes mellitus without complication, *01/16/2022 Class 2 severe obesity due to excess calories w*05/23/2022 Disorder of right rotator cuff [M67.911] 06/30/2022 Obesity, Class I, BMI 30-34.9 [E66.9] 08/27/2022 Encounter Status:Closed by PEEWEE OSORIO on 03/06/23 [facility] Final Surgical Pathology Rep [facility] 02-25-2023 Final Surgical Pathology Report . Pathology Reports Accession: Collected Date/Time: Received Date/Time: Pathologist: [id number] 02/23/2023 15:50 EST 02/24/2023 08:25 EST ALIRIO LAZO MD Final Surgical Pathology Report DIAGNOSIS: A. HEMORRHOID AT 9:00: - EXTERNAL HEMORRHOIDS IDENTIFIED B. HEMORRHOID AT 6:00: - EXTERNAL HEMORRHOID IDENTIFIED C. INTERNAL HEMORRHOID: - COLONIC MUCOSA WITH SOME FEATURES OF HYPERPLASTIC POLYP D. HEMORRHOID AT 3:00: - EXTERNAL HEMORRHOID IDENTIFIED CLINICAL INFORMATION: ANAL FISSURE Procedure: LATERAL INTERNAL SPHINCTEROTOMY Preoperative diagnosis: ANAL FISSURE Postoperative diagnosis: ANAL FISSURE SPECIMEN: A HEMORRHOID 9:00 B HEMORRHOID 6:00 C INTERNAL HEMORRHOID D HEMORRHOID 3:00 GROSS DESCRIPTION: A. Received in formalin, labeled with the patients name, Case # [id number], and hemorrhoid at 9:00 is a garay-chacko wrinkled skin excision measuring 2.5 x 1.5 x 1.2 cm. Tissue is sectioned to reveal hemorrhagic cut surfaces with dilated vasculature. RS -1 B. Received in formalin labeled hemorrhoid at 6:00 is a garay-chacko skin excision measuring 2.1 x 1.5 x 1.6 cm. Tissue is sectioned to reveal hemorrhagic cut surfaces. RS -1 C. Received in formalin labeled internal hemorrhoid is a garay-chacko skin excision measuring 2 x 0.8 x 0.6 cm. Tissue is sectioned to reveal unremarkable cut surfaces. TS -1 D. Received in formalin labeled hemorrhoid 3:00 is a garay-chacko to purple skin excision measuring 1.8 x 1.2 x 1 cm. Tissue is sectioned to reveal hemorrhagic cut surfaces. RS -1 Dictated by REHANA CHAVEZ MICROSCOPIC DESCRIPTION: The microscopic examination is performed, except in the case of Gross Only. Electronically Signed by Pathology Report verified by [facility] ALIRIO LAZO Sign out Date: 02/25/2023 12:32 Performing Lab: [address] Pathology Dept Pathology Reports Accession: Collected Date/Time: Received Date/Time: Pathologist: [id number] 02/23/2023 15:50 EST 02/24/2023 08:25 ALIRIO WAN MD Disclaimer If ancillary studies were utilized, the following Laboratory Developed Test (LDT) disclaimer will apply: Under CLIA requirements, [facility] is qualified to perform high complexity testing. For all ancillary stains, positive and negative controls stain appropriately. Performance characteristics of immunohistochemical and chromogenic in-situ hybridization tests have been determined by [facility]. These tests are used for clinical purposes, They should not be regarded as investigational or for research. Normal [facility]) LABORATORYOrdered By: Carli Dhillon on 02-23-2023 Blood Glucose Testing Reason Routine (02/23/23 12:50 PM) [facility] Work Phone: Glucose [Mass/Vol] 116 mg/dL High 82 - 115 mg/dL [facility] Work Phone: .Auto Diffon 02-16-2023 Basophil, Absolute 0.1 10 3/mcL Normal 0.0-0.3 [facility]) Comment on above: Performed By: #### A SUYAPA, ADIFF, GFR, BMP, CBC #### [address] [address] Basophils/100 WBC (Bld) 0.8 % Normal 0.0-2.5 [facility]) Comment on above: Performed By: #### A SUYAPA, ADIFF, GFR, BMP, CBC #### [address] [address] Eosinophil, Absolute 0.3 10 3/mcL Normal 0.0-0.7 [facility]) Comment on above: Performed By: #### A SUYAPA, ADIFF, GFR, BMP, CBC #### [address] [address] Eosinophils/100 WBC (Bld) 2.2 % Normal 0.0-6.0 [facility] ([place]) Comment on above: Performed By: #### A SUYAPA, ADIFF, GFR, BMP, CBC #### [address] [address] Lymphocyte, Absolute 2.7 10 3/mcL Normal 0.9-4.3 [facility] ([place]) Comment on above: Performed By: #### A SUYAPA, ADIFF, GFR, BMP, CBC #### [address] [address] Lymphocytes/100 WBC (Bld) 23.1 % Normal 20.0-40.0 [facility]) Comment on above: Performed By: #### A SUYAPA, ADIFF, GFR, BMP, CBC #### [address] [address] Monocyte, Absolute 0.6 10 3/mcL Normal 0.1-1.4 [facility] ([place]) Comment on above: Performed By: #### A SUYAPA, ADIFF, GFR, BMP, CBC #### [address] [address] Monocytes/100 WBC (Bld) 5.1 % Normal 2.0-13.0 [facility] ([place]) Comment on above: Performed By: #### A SUYAPA, ADIFF, GFR, BMP, CBC #### [address] [address] Neutrophils/100 WBC (Bld) 68.8 % Normal 50.0-75.0 [facility] ([place]) Comment on above: Performed By: #### A SUYAPA, ADIFF, GFR, BMP, CBC #### [address] [address] .GFRon 02-16-2023 GFR >60 Normal [facility] ([place]) Comment on above: Result Comment: GFR Population mean for , Non- Americans Ages 20-29 = 116 mL/min/1.73 sq.m. Ages 30-39 = 107 mL/min/1.73 sq.m. Ages 40-49 = 99 mL/min/1.73 sq.m. Ages 50-59 = 93 mL/min/1.73 sq.m. Ages 60-69 = 85 mL/min/1.73 sq.m. Ages 70+ = 75 mL/min/1.73 sq.m. Chronic Kidney Disease: Less than 60 mL/min/1.73 square meters End Stage Renal Disease: Less than 15 mL/min/1.73 square meters Performed By: #### A SUYAPA, ADIFF, GFR, BMP, CBC #### [address] [address] GFR Non- >60 Normal [facility] ([place]) Comment on above: Result Comment: GFR Population mean for , Non- Americans Ages 20-29 = 116 mL/min/1.73 sq.m. Ages 30-39 = 107 mL/min/1.73 sq.m. Ages 40-49 = 99 mL/min/1.73 sq.m. Ages 50-59 = 93 mL/min/1.73 sq.m. Ages 60-69 = 85 mL/min/1.73 sq.m. Ages 70+ = 75 mL/min/1.73 sq.m. Chronic Kidney Disease: Less than 60 mL/min/1.73 square meters End Stage Renal Disease: Less than 15 mL/min/1.73 square meters Performed By: #### A SUYAPA, ADIFF, GFR, BMP, CBC #### [address] [address] .NEUABSon 02-16-2023 Neutrophil, Absolute 8.0 10 3/mcL Normal 2.3-8.1 [facility] ([place]) Comment on above: Performed By: #### A SUYAPA, ADIFF, GFR, BMP, CBC #### [address] [address] BMPon 02-16-2023 BUN/Creatinine Ratio 18.1 ratio Normal 10.0-22.0 [facility] ([place]) Comment on above: Performed By: #### A SUYAPA, ADIFF, GFR, BMP, CBC #### [address] [address] Calcium [Mass/Vol] 9.8 mg/dL Normal 8.7-10.4 [facility] ([place]) Comment on above: Performed By: #### A SUYAPA, ADIFF, GFR, BMP, CBC #### [address] [address] Chloride [Moles/Vol] 103 mmol/L Normal 98-110 [facility] ([place]) Comment on above: Performed By: #### A SUYAPA, ADIFF, GFR, BMP, CBC #### [address] [address] CO2 [Moles/Vol] 27 mmol/L Normal 22-32 [facility] ([place]) Comment on above: Performed By: #### A SUYAPA, ADIFF, GFR, BMP, CBC #### [address] [address] Creatinine [Mass/Vol] 0.83 mg/dL Normal 0.50-1.20 [facility] ([place]) Comment on above: Performed By: #### A SUYAPA, ADIFF, GFR, BMP, CBC #### [address] [address] Electrolyte Balance 7.0 mEq/L Normal 4.0-15.0 [facility] ([place]) Comment on above: Performed By: #### A SUYAPA, ADIFF, GFR, BMP, CBC #### [address] [address] Glucose [Mass/Vol] 112 mg/dL Normal 82-115 [facility] ([place]) Comment on above: Performed By: #### A SUYAPA, ADIFF, GFR, BMP, CBC #### [place] [address] Potassium [Moles/Vol] 4.3 mmol/L Normal 3.5-5.0 [facility] ([place]) Comment on above: Result Comment: Spec imen slightly hemolyzed. Performed By: #### A SUYAPA, ADIFF, GFR, BMP, CBC #### [place] [address] Sodium [Moles/Vol] 137 mmol/L Normal 136-145 [facility] ([place]) Comment on above: Performed By: #### A SUYAPA, ADIFF, GFR, BMP, CBC #### [address] [address] Urea nitrogen [Mass/Vol] 15.0 mg/dL Normal 8.0-22.0 [facility] ([place]) Comment on above: Performed By: #### A SUYAPA, ADIFF, GFR, BMP, CBC #### [address] [address] CBCon 02-16-2023 Erythrocyte distribution width (RBC) [Ratio] 14.2 % Normal 11.5-15.5 [facility] ([place]) Comment on above: Performed By: #### A SUYAPA, ADIFF, GFR, BMP, CBC #### [place] [address] Hematocrit (Bld) [Volume fraction] 39.9 % Normal 34.0-46.0 [facility] ([place]) Comment on above: Performed By: #### A SUYAPA, ADIFF, GFR, BMP, CBC #### [place] [address] Hgb 13.2 G/dL Normal 12.0-16.0 [facility] ([place]) Comment on above: Performed By: #### A SUYAPA, ADIFF, GFR, BMP, CBC #### [place] [address] MCH (RBC) [Entitic mass] 29.0 pg Normal 27.0-33.0 [facility] ([place]) Comment on above: Performed By: #### A SUYAPA, ADIFF, GFR, BMP, CBC #### [place] [address] MCHC 33.1 G/dL Normal 32.0-36.0 [facility] ([place]) Comment on above: Performed By: #### A SUYAPA, ADIFF, GFR, BMP, CBC #### [place] [address] MCV (RBC) [Entitic vol] 87.5 fL Normal 80.0-99.0 [facility] ([place]) Comment on above: Performed By: #### A SUYAPA, ADIFF, GFR, BMP, CBC #### [place] [address] Platelet 328 10 3/mcL Normal 150-450 [facility] ([place]) Comment on above: Performed By: #### A SUYAPA, ADIFF, GFR, BMP, CBC #### [place] [address] Platelet mean volume (Bld) [Entitic vol] 8.0 fL Normal 6.6-10.5 [facility] ([place]) Comment on above: Performed By: #### A SUYAPA, ADIFF, GFR, BMP, CBC #### [place] [address] RBC 4.56 10 6/mcL Normal 4.10-5.30 [facility] ([place]) Comment on above: Performed By: #### A SUYAPA, ADIFF, GFR, BMP, CBC #### [address] [address] WBC 11.6 10 3/mcL High 4.5-10.8 [facility] ([place]) Comment on above: Performed By: #### A SUYAPA, ADIFF, GFR, BMP, CBC #### [address] [address] LABORATORYOrdered By: SYSTEM SYSTEM on 02-16-2023 Basophils (Bld) [#/Vol] 0.1 103/mcL Invalid Interpretation Code 0.0 - 0.3 10^3/mcL Workflow SS Basophils/100 WBC (Bld) 0.8 % Invalid Interpretation Code 0.0 - 2.5 % Workflow SS Calcium [Mass/Vol] 9.8 mg/dL Invalid Interpretation Code 8.7 - 10.4 mg/dL ADM SS Chloride [Moles/Vol] 103 mmol/L Invalid Interpretation Code 98 - 110 mEq/L ADM SS CO2 [Moles/Vol] 27 mmol/L Invalid Interpretation Code 22 - 32 mEq/L ADM SS Creatinine [Mass/Vol] 0.83 mg/dL Invalid Interpretation Code 0.50 - 1.20 mg/dL ADM SS Electrolyte Balance 7.0 mEq/L Invalid Interpretation Code 4.0 - 15.0 mEq/L ADM SS Eosinophils (Bld) [#/Vol] 0.3 103/mcL Invalid Interpretation Code 0.0 - 0.7 10^3/mcL Workflow SS Eosinophils/100 WBC (Bld) 2.2 % Invalid Interpretation Code 0.0 - 6.0 % Workflow SS Erythrocyte distribution width (RBC) [Ratio] 14.2 % Invalid Interpretation Code 11.5 - 15.5 % Workflow SS GFR/1.73 sq M.predicted among blacks MDRD (S/P/Bld) [Vol rate/Area] ml/min/1.73sqm Invalid Interpretation Code Chemistry S Comment on above: Interpretive Data: GFR Population mean for , Non- Americans Ages 20-29 = 116 mL/min/1.73 sq.m. Ages 30-39 = 107 mL/min/1.73 sq.m. Ages 40-49 = 99 mL/min/1.73 sq.m. Ages 50-59 = 93 mL/min/1.73 sq.m. Ages 60-69 = 85 mL/min/1.73 sq.m. Ages 70+ = 75 mL/min/1.73 sq.m. Chronic Kidney Disease: Less than 60 mL/min/1.73 square meters End Stage Renal Disease: Less than 15 mL/min/1.73 square meters GFR/1.73 sq M.predicted among non-blacks MDRD (S/P/Bld) [Vol rate/Area] ml/min/1.73sqm Invalid Interpretation Code Chemistry S Comment on above: Interpretive Data: GFR Population mean for , Non- Americans Ages 20-29 = 116 mL/min/1.73 sq.m. Ages 30-39 = 107 mL/min/1.73 sq.m. Ages 40-49 = 99 mL/min/1.73 sq.m. Ages 50-59 = 93 mL/min/1.73 sq.m. Ages 60-69 = 85 mL/min/1.73 sq.m. Ages 70+ = 75 mL/min/1.73 sq.m. Chronic Kidney Disease: Less than 60 mL/min/1.73 square meters End Stage Renal Disease: Less than 15 mL/min/1.73 square meters Glucose [Mass/Vol] 112 mg/dL Invalid Interpretation Code 82 - 115 mg/dL ADM SS Hematocrit (Bld) [Volume fraction] 39.9 % Invalid Interpretation Code 34.0 - 46.0 % Workflow SS Hemoglobin (Bld) [Mass/Vol] 13.2 G/dL Invalid Interpretation Code 12.0 - 16.0 G/dL Workflow SS Lymphocytes (Bld) [#/Vol] 2.7 103/mcL Invalid Interpretation Code 0.9 - 4.3 10^3/mcL Workflow SS Lymphocytes/100 WBC (Bld) 23.1 % Invalid Interpretation Code 20.0 - 40.0 % Workflow SS MCH (RBC) [Entitic mass] 29.0 pg Invalid Interpretation Code 27.0 - 33.0 pg Workflow SS MCHC 33.1 G/dL Invalid Interpretation Code 32.0 - 36.0 G/dL Workflow SS MCV (RBC) [Entitic vol] 87.5 fL Invalid Interpretation Code 80.0 - 99.0 fL AH Workflow SS Monocytes (Bld) [#/Vol] 0.6 103/mcL Invalid Interpretation Code 0.1 - 1.4 10^3/mcL AH Workflow SS Monocytes/100 WBC (Bld) 5.1 % Invalid Interpretation Code 2.0 - 13.0 % AH Workflow SS Neutrophils (Bld) [#/Vol] 8.0 103/mcL Invalid Interpretation Code 2.3 - 8.1 10^3/mcL AH Workflow SS Neutrophils/100 WBC (Bld) 68.8 % Invalid Interpretation Code 50.0 - 75.0 % AH Workflow SS Platelet mean volume (Bld) [Entitic vol] 8.0 fL Invalid Interpretation Code 6.6 - 10.5 fL AH Workflow SS Platelets (Bld) [#/Vol] 328 103/mcL Invalid Interpretation Code 150 - 450 10^3/mcL AH Workflow SS Potassium [Moles/Vol] 4.3 mmol/L Invalid Interpretation Code 3.5 - 5.0 mEq/L ADM SS Comment on above: Result Comment: Spec imen slightly hemolyzed. RBC (Bld) [#/Vol] 4.56 106/mcL Invalid Interpretation Code 4.10 - 5.30 10^6/mcL AH Workflow SS Sodium [Moles/Vol] 137 mmol/L Invalid Interpretation Code 136 - 145 mEq/L AH ADM SS Urea nitrogen [Mass/Vol] 15.0 mg/dL Invalid Interpretation Code 8.0 - 22.0 mg/dL AH ADM SS Urea nitrogen/Creatinine [Mass ratio] 18.1 ratio Invalid Interpretation Code 10.0 - 22.0 ratio AH ADM SS WBC (Bld) [#/Vol] 11.6 103/mcL Invalid Interpretation Code 4.5 - 10.8 10^3/mcL AH Workflow SS CNPNon 02-03-2023 CNPN Telephone (AGINTMAC) AURELIO BHAKTA ([id number]) 1960 F LV Date Time Provider Department 02/03/23 MARVEL SAM During your visit today, we recorded the following information about you: Jagdeep Orozco 02/03/2023 4:03 PM Signed VM received from Eloisa with Gen Surg Dr.Nicholas Belcher's office requesting patient records from her colonoscopy and EGD from 09/05/2021. Records faxed to [phone]. Jagdeep Orozco, [employer] February 03, 2023 4:01 PM Allergies As of Date: 02/03/2023 Noted Allergy Reaction HYDROCODONE 11/29/2021 11 - Vomiting NAPROXEN 11/29/2021 10 - Anaphylaxis SULFA (SULFONAMIDE ANTIBIOTICS) 11/29/2021 14 - Other: See Comments 2 - Rash TRAMADOL 11/29/2021 4 - Hives 2 - Rash TRAZODONE 11/29/2021 4 - Hives 2 - Rash Date Reviewed: 12/18/2022 Reviewed by: Adeline Huerta OD - Fully Assessed Reason for Visit: Records [Other] Prescriptions as of 02/03/2023 - TRELEGY ELLIPTA 100-62.5-25 mcg inhalation powder Inhale 1 Puff as instructed once daily. - hydrOXYzine HCl (ATARAX) 50 mg tablet Take 1 tablet by mouth four times a day as needed. - albuterol HFA (PROVENTIL HFA, VENTOLIN HFA) 90 mcg/actuation inhaler Inhale 2 Puffs as instructed every 6 hours as needed. - semaglutide (OZEMPIC) 2 mg/dose (8 mg/3 mL) pen injector Inject 2 mg subcutaneously one time a week. - bumetanide (BUMEX) 1 mg tablet Take 1.5 tablets by mouth once daily. - diclofenac (VOLTAREN ARTHRITIS PAIN) 1 % topical gel Apply 2 g to affected area four times daily. - esomeprazole (NEXIUM) 40 mg capsule Take 1 capsule by mouth once daily. - metoprolol succinate ER (TOPROL XL) 25 mg 24 hr tablet Take 1 tablet by mouth once daily. - montelukast (SINGULAIR) 10 mg tablet Take 1 tablet by mouth daily at bedtime. - rosuvastatin (CRESTOR) 10 mg tablet Take 1 tablet by mouth once daily. - valsartan (DIOVAN) 160 mg tablet Take 1 tablet by mouth once daily. - ferrous sulfate 325 mg (65 mg iron) tablet Take by mouth. - alcohol swabs Use with blood glucose test 2 times daily. Insulin Dep? No - Lancets lancets Use with blood glucose test 2 times daily. Insulin Dep? No - blood sugar diagnostic test strip Use with blood glucose test 2 times daily, Insulin Dep? No - loperamide (IMODIUM) 2 mg cap(s) Take 1 capsule by mouth four times daily as needed for diarrhea for up to 15 days. - hemorrhoid ointment (PREPARATION H) 0.25-14-74.9 % rectal ointment by RECTAL route twice daily as needed. - ONETOUCH DELICA PLUS LANCET 30 gauge twice daily. - Blood-Glucose Meter 1 Each as needed. - glucose 4 gram chewable tablet Take 4 tablets by mouth as needed for low blood sugar. Problem List As Of Date 02/03/2023 Noted Resolved Type 2 diabetes mellitus without complication, *01/16/2022 Class 2 severe obesity due to excess calories w*05/23/2022 Disorder of right rotator cuff [M67.911] 06/30/2022 Obesity, Class I, BMI 30-34.9 [E66.9] 08/27/2022 Encounter Status:Closed by JAGDEEP OROZCO on 02/03/23 [facility] CNPN Telephone ([employer]) AURELIO BHAKTA ([id number]) 1960 F Date Time Provider Department 02/03/23 CHRIS RAZA [employer] During your visit today, we recorded the following information about you: Anabell Davis 02/03/2023 1:43 PM Signed Please route telephone encounter to the Clerical Pool ([facility] Clerical Pool) Patient called stating we should have copies of a colonoscopy she had done a couple of years ago by Dr San, [place], [place] in our files. She requested that we send a copy to Dr Peralta's (gastro) office. I did not find any records of that procedure scanned in. I called Dr Peralta's office, they will call Dr San and get records. Anabell Davis, [employer] February 03, 2023 1:43 PM Allergies As of Date: 02/03/2023 Noted Allergy Reaction HYDROCODONE 11/29/2021 11 - Vomiting NAPROXEN 11/29/2021 10 - Anaphylaxis SULFA (SULFONAMIDE ANTIBIOTICS) 11/29/2021 14 - Other: See Comments 2 - Rash TRAMADOL 11/29/2021 4 - Hives 2 - Rash TRAZODONE 11/29/2021 4 - Hives 2 - Rash Date Reviewed: 12/18/2022 Reviewed by: Adeline Huerta OD - Fully Assessed Reason for Visit: Patient Question [1387] Prescriptions as of 02/03/2023 - TRELEGY ELLIPTA 100-62.5-25 mcg inhalation powder Inhale 1 Puff as instructed once daily. - hydrOXYzine HCl (ATARAX) 50 mg tablet Take 1 tablet by mouth four times a day as needed. - albuterol HFA (PROVENTIL HFA, VENTOLIN HFA) 90 mcg/actuation inhaler Inhale 2 Puffs as instructed every 6 hours as needed. - semaglutide (OZEMPIC) 2 mg/dose (8 mg/3 mL) pen injector Inject 2 mg subcutaneously one time a week. - bumetanide (BUMEX) 1 mg tablet Take 1.5 tablets by mouth once daily. - diclofenac (VOLTAREN ARTHRITIS PAIN) 1 % topical gel Apply 2 g to affected area four times daily. - esomeprazole (NEXIUM) 40 mg capsule Take 1 capsule by mouth once daily. - metoprolol succinate ER (TOPROL XL) 25 mg 24 hr tablet Take 1 tablet by mouth once daily. - montelukast (SINGULAIR) 10 mg tablet Take 1 tablet by mouth daily at bedtime. - rosuvastatin (CRESTOR) 10 mg tablet Take 1 tablet by mouth once daily. - valsartan (DIOVAN) 160 mg tablet Take 1 tablet by mouth once daily. - ferrous sulfate 325 mg (65 mg iron) tablet Take by mouth. - alcohol swabs Use with blood glucose test 2 times daily. Insulin Dep? No - Lancets lancets Use with blood glucose test 2 times daily. Insulin Dep? No - blood sugar diagnostic test strip Use with blood glucose test 2 times daily, Insulin Dep? No - loperamide (IMODIUM) 2 mg cap(s) Take 1 capsule by mouth four times daily as needed for diarrhea for up to 15 days. - hemorrhoid ointment (PREPARATION H) 0.25-14-74.9 % rectal ointment by RECTAL route twice daily as needed. - [employer] PLUS LANCET 30 gauge twice daily. - Blood-Glucose Meter 1 Each as needed. - glucose 4 gram chewable tablet Take 4 tablets by mouth as needed for low blood sugar. Problem List As Of Date 02/03/2023 Noted Resolved Type 2 diabetes mellitus without complication, *01/16/2022 Class 2 severe obesity due to excess calories w*05/23/2022 Disorder of right rotator cuff [M67.911] 06/30/2022 Obesity, Class I, BMI 30-34.9 [E66.9] 08/27/2022 Encounter Status:Closed by ANABELL DAVIS on 02/03/23 [facility] XR KNEE GENERAL 4V AP BOTH/P A BOTH/LAT/MERC RIGHTon 12-15-2022 [facility] XR SHOULDER GENERAL 3V OR MO RE AP/TRUE AP/OTHER RIGHTon 08-28-2022 [facility] HbA1c (Bld)on 03-27-2022 HbA1c (Bld) [Mass fraction] 6.8 % Abnormal 4.0 - 6.0 % [facility] LMPon 11-22-2021 Last menstrual period start date Menopause [facility] Phone: THEATRE MANAGER - Office Visiton 11-04 THEATRE MANAGER - Office Visit Diagnoses/Problems Assessed Abdominal bloating (787.3) (R14.0) Provider Impressions 1. Abdominal bloating Personally reviewed the MRI of the pelvis which shows a 13 x 8 mm anterior uterine wall fibroid. No evidence of any other pelvic masses. Patient informed that the small uterine fibroid would not be the source for her abdominal bloating nor abdominal pain. Patient states that she has an appointment to see a GI specialist in the near future. Patient encouraged to follow-up with her primary care for further evaluation. Chief Complaint New patient here to review MRI results. Patient c/o bloating. History of Present IllnessPatient presents stating that she has noticed abdominal bloating and abdominal discomfort for several months. She had an MRI performed recently. She denies any postmenopausal bleeding. Review of Systems Review of Systems: Constitutional: No fever or chills Respiratory: No shortness of breath, or cough Cardiovascular: No chest pain or syncope Breasts: No breast pain, no masses, no nipple discharge Gastrointestinal: No nausea, vomiting, or diarrhea Genitourinary: No dysuria or frequency Gynecology: Negative except as noted in history of present illness All other: All other systems reviewed and negative for complaint Active Problems Problems Abdominal bloating (787.3) (R14.0) Abdominal pain, acute, left upper quadrant (789.02,338.19) (R10.12) Abdominal pain, acute, right upper quadrant (789.01,338.19) (R10.11) Advanced care planning/counseling discussion (V65.49) (Z71.89) Anxiety (300.00) (F41.9) 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) BMI 34.0-34.9,adult (V85.34) (Z68.34) Breast cancer screening by mammogram (V76.12) (Z12.31) Bursitis of right shoulder (726.10) (M75.51) Cigarette nicotine dependence (305.1) (F17.210) Colon polyp (211.3) (K63.5) Depression, major, single episode, moderate (296.22) (F32.1) Diverticulosis (562.10) (K57.90) Edema of foot (782.3) (R60.0) Elevated WBC count (288.60) (D72.829) Epigastric abdominal tenderness (789.66) (R10.816) Gastric ulcer (531.90) (K25.9) Generalized osteoarthritis (715.00) (M15.9) GERD (gastroesophageal reflux disease) (530.81) (K21.9) Hernia, hiatal (553.3) (K44.9) Hyperlipemia (272.4) (E78.5) Hypertension (401.9) (I10) Iron deficiency (280.9) (E61.1) Joint pain (719.40) (M25.50) Low hemoglobin (285.9) (D64.9) Lump of skin (782.2) (R22.9) Medicare annual wellness visit, subsequent (V70.0) (Z00.00) Pancreatic cyst (577.2) (K86.2) Pelvic pain in female (625.9) (R10.2) Prediabetes (790.29) (R73.03) Preventive medication therapy needed (V07.8) (Z29.9) Uterine fibroid (218.9) (D25.9) Past Medical History Problems History of Delivery of by section (669.70) (O82) 09/17/79 40 weeks 7lbs 8oz 11/18/89 female 7lbs 8oz H/O mammogram (V15.89) (Z92.89) [facility] [place], [place] [phone] History of Papanicolaou smear (V45.89) (Z98.890) 3 YEARS AGO PER PT NORMAL PER PT History of Menstruation Onset age 9 years History of NVD (normal vaginal delivery) (650) (O80) 03[birth year]15/1975_FT_Male_6# 14oz Surgical History Problems History of section X 2 1 VAGINAL DELIVERY History of Colonoscopy Managed By: Katy San (Internal Medicine) E. COLON, RANDOM BIOPSIES: --COLONIC MUCOSA, NO SIGNIFICANT HISTOPATHOLOGICAL ABNORMALITIES. History of Esophagogastroduodenoscopy Managed By: Katy San (Internal Medicine) FINAL DIAGNOSIS A. SPECIMEN LABELED GASTRIC ULCER, BIOPSY: --OXYNTIC MUCOSA DEMONSTRATING FOCAL HISTOPATHOLOGICAL FEATURES SUGGESTIVE OF HEALED EROSION/ULCER, NO HELICOBACTER IDENTIFIED. B. ESOPHAGUS, BIOPSIES: --SQUAMOUS EPITHELIUM, NO SIGNIFICANT HISTOPATHOLOGICAL ABNORMALITIES. C. GASTRIC ANTRUM, BIOPSY: --REACTIVE GASTROPATHY, NO HELICOBACTER IDENTIFIED. D. DISTAL ESOPHAGUS, BIOPSY: --SQUAMOCOLUMNAR JUNCTIONAL MUCOSA DEMONSTRATING FOCAL HISTOPATHOLOGICAL FEATURES CONSISTENT WITH PRIOR MUCOSAL INJURY, NO ACUTE INFLAMMATION OR INTESTINAL METAPLASIA IDENTIFIED. History of Rotator cuff repair R SHOULDER Family History Mother Family history of Family history of cardiac disorder (V17.49) (Z82.49) Family history of osteoporosis (V17.81) (Z82.62) Father Family history of cerebral aneurysm (V17.1) (Z82.49) Family history of malignant neoplasm of brain (V16.8) (Z80.8) Sister Family history of Bipolar depression Family history of Chronic kidney disease, stage 3 Family history of chronic obstructive pulmonary disease (V17.6) (Z82.5) Family history of hypertension (V17.49) (Z82.49) Family history of hypothyroidism (V18.19) (Z83.49) Family history of type 2 diabetes mellitus (V18.0) (Z83.3) Family history of KYAW on CPAP Family history of Psychological disorder Maternal Grandfather Family history of type 2 diabetes mellitus (V18.0) (Z83.3) Social History Problems Cigarette ambrosio (more content not included)... Normal [facility] MRI PELVIS W/O-W CONTRAST on 11-11-2021 MRI PELVIS W/O-W CONTRAST Patient Name: AURELIO BHAKTA STUDY: MRI ABDOMEN WO/W CONTRAST; MRI PELVIS W/O-W CONTRAST; 11/11/2021 2:45 pm INDICATION: PELVIC PAIN, ABD PAIN, AND BLOATING R10.2: Pelvic pain in female. COMPARISON: CT abdomen and pelvis 10/23/2021 ACCESSION NUMBER(S): [id number]; [id number] ORDERING CLINICIAN: FANNY OLIVARES TECHNIQUE: MRI ABDOMEN AND PELVIS; Multiplanar magnetic resonance images of the abdomen and pelvis were obtained including the following sequences; T2-weighted SSFSE with and without fat saturation, T1-weighted GRE in/opposed phase, DWI, fat saturated 3D-T1w GRE pre and dynamically post contrast. 19 milliliter of DOTAREM GADOTERATE MEGLUMINE INJECTION were administered intravenously without immediate complication. FINDINGS: LIVER: The liver parenchyma demonstrates diffusely decreased signal intensity on T1w opposed phase imaging compared to T1w inphase imaging consistent with fatty changes. No liver mass. BILE DUCTS: No intrahepatic or extrahepatic bile duct dilatation is demonstrated. GALLBLADDER: Within normal limits. PANCREAS: Normal signal intensity. Normal enhancement. 2 MM nonenhancing pancreatic body cystic lesion (series 4, image 22), likely a side branch IPMN.. The pancreatic duct is normal. SPLEEN: The spleen is normal in size without evidence of focal lesions. ADRENAL GLANDS: Within normal limits. KIDNEYS: 13 mm left interpolar region simple cyst. No suspicious renal masses. No hydronephrosis. LYMPH NODES: No lymphadenopathy. URINARY BLADDER: Urinary bladder is unremarkable. REPRODUCTIVE ORGANS: 13 x 8 mm anterior uterine wall fibroid. ABDOMINAL VESSELS: Aorta and the major abdominal arterial vessels demonstrate no gross abnormality. Superior mesenteric vein, splenic vein, and main, right and left portal vein are patent. Hepatic veins are patent. BOWEL: No significant bowel wall thickening or dilation. Small hiatal hernia. Diverticulosis without diverticulitis. PERITONEUM/RETROPERITONEUM: No ascites. BONES AND LOWER THORAX: No abnormally enhancing focal bony lesions are identified. Multilevel discogenic degenerative disease is noted in several levels of the thoraco- lumbar spine. Mild bibasilar and subsegmental atelectasis. IMPRESSION: 1. Diffuse hepatic steatosis. 2. 2 mm pancreatic body nonenhancing cystic lesion, likely a side branch IPMN. Electronically signed by: JENIFFER DEVRIES MD [facility] MRI ABDOMEN WO/W CONTRASTon 11-11-2021 MRI ABDOMEN WO/W CONTRAST Patient Name: AURELIO BHAKTA STUDY: MRI ABDOMEN WO/W CONTRAST; MRI PELVIS W/O-W CONTRAST; 11/11/2021 2:45 pm INDICATION: PELVIC PAIN, ABD PAIN, AND BLOATING R10.2: Pelvic pain in female. COMPARISON: CT abdomen and pelvis 10/23/2021 ACCESSION NUMBER(S): [id number]; [id number] ORDERING CLINICIAN: FANNY OLIVARES TECHNIQUE: MRI ABDOMEN AND PELVIS; Multiplanar magnetic resonance images of the abdomen and pelvis were obtained including the following sequences; T2-weighted SSFSE with and without fat saturation, T1-weighted GRE in/opposed phase, DWI, fat saturated 3D-T1w GRE pre and dynamically post contrast. 19 milliliter of DOTAREM GADOTERATE MEGLUMINE INJECTION were administered intravenously without immediate complication. FINDINGS: LIVER: The liver parenchyma demonstrates diffusely decreased signal intensity on T1w opposed phase imaging compared to T1w inphase imaging consistent with fatty changes. No liver mass. BILE DUCTS: No intrahepatic or extrahepatic bile duct dilatation is demonstrated. GALLBLADDER: Within normal limits. PANCREAS: Normal signal intensity. Normal enhancement. 2 MM nonenhancing pancreatic body cystic lesion (series 4, image 22), likely a side branch IPMN.. The pancreatic duct is normal. SPLEEN: The spleen is normal in size without evidence of focal lesions. ADRENAL GLANDS: Within normal limits. KIDNEYS: 13 mm left interpolar region simple cyst. No suspicious renal masses. No hydronephrosis. LYMPH NODES: No lymphadenopathy. URINARY BLADDER: Urinary bladder is unremarkable. REPRODUCTIVE ORGANS: 13 x 8 mm anterior uterine wall fibroid. ABDOMINAL VESSELS: Aorta and the major abdominal arterial vessels demonstrate no gross abnormality. Superior mesenteric vein, splenic vein, and main, right and left portal vein are patent. Hepatic veins are patent. BOWEL: No significant bowel wall thickening or dilation. Small hiatal hernia. Diverticulosis without diverticulitis. PERITONEUM/RETROPERITONEUM: No ascites. BONES AND LOWER THORAX: No abnormally enhancing focal bony lesions are identified. Multilevel discogenic degenerative disease is noted in several levels of the thoraco- lumbar spine. Mild bibasilar and subsegmental atelectasis. IMPRESSION: 1. Diffuse hepatic steatosis. 2. 2 mm pancreatic body nonenhancing cystic lesion, likely a side branch IPMN. Electronically signed by: JENIFFER DEVRIES MD Normal [facility] MRI Abdomen w/wo Contraston 11-11-2021 MR Abdomen WO and W contrast IV Normal [facility] Internal Medicine Work Phone: MRI Pelvis w/wo Contraston 0 11-11-2021 MRA Pelvis vessels WO and W contrast IV Normal [facility] Internal Medicine Work Phone: No Panel Informationon 10-31 [email or web address]?={[id number] } [facility] Internal Medicine Work Phone: [facility] Internal Medicine Work Phone: Upper GI endoscopyon 022 Upper GI endoscopy PATIENTNAME Patient Name: Aurelio Bhakta EXAMDATE Procedure Date: 10/31/2021 9:35 AM PATIENTID PATIENTACCOUNTNUM PATIENTDOB Date of : 1960 ADMITTYPE Admit Type: Outpatient PATIENTROOM Site: [facility] Proc RM 1 ETHNICITY Ethnicity: Not or RACE Race: White PROVDR Attending MD: Katy San MD ENDOPROCEDURENAME Procedure: Upper GI endoscopy INDICATION Indications: Follow-up of peptic ulcer PRIMARYPROVIDER Providers: Katy San MD (Doctor), Karyna Ravi RN (Nurse), Senia Gudino, Foreign Diplomat EDREFPROVIDER Referring: Katy San MD CURRENT_MEDS Medicines: Midazolam 5 mg IV, Meperidine 50 mg IV COMPLIC Complications: No immediate complications. ENDOPROCEDURETEXT Procedure: Pre-Anesthesia Assessment: - Prior to the procedure, a History and Physical was performed, and patient medications and allergies were reviewed. The patient's tolerance of previous anesthesia was also reviewed. The risks and benefits of the procedure and the sedation options and risks were discussed with the patient. All questions were answered, and informed consent was obtained. Prior Anticoagulants: The patient has taken no anticoagulant or antiplatelet agents. ASA Grade Assessment: III - A patient with severe systemic disease. After reviewing the risks and benefits, the patient was deemed in satisfactory condition to undergo the procedure. After obtaining informed consent, the endoscope was passed under direct vision. Throughout the procedure, the patient's blood pressure, pulse, and oxygen saturations were monitored continuously. The endoscope was introduced through the mouth, and advanced to the third part of duodenum. The upper GI endoscopy was accomplished without difficulty. The patient tolerated the procedure well. FINDING Findings: A small hiatal hernia was present. Striped mildly erythematous mucosa without bleeding was found in the gastric antrum. The examined duodenum was normal. SEDATION Moderate Sedation: Moderate (conscious) sedation was administered by the endoscopy nurse and supervised by the endoscopist. The following parameters were monitored: oxygen saturation, heart rate, blood pressure, and response to care. Total physician intraservice time was 6 minutes. EBL Estimated Blood Loss: Estimated blood loss: none. IMPRESS Impression: - Small hiatal hernia. - Erythematous mucosa in the antrum. - Normal examined duodenum. - No specimens collected. ENDORECOMMENDATION Recommendation: - Patient has a contact number available for emergencies. The signs and symptoms of potential delayed complications were discussed with the patient. Return to normal activities tomorrow. Written discharge instructions were provided to the patient. - Resume previous diet. - Continue present medications. - Repeat upper endoscopy PRN. CPT_CODES Procedure Code(s): --- Professional --- 47431, Esophagogastroduodenoscopy, flexible, transoral; diagnostic, including collection of specimen(s) by brushing or washing, when performed (separate procedure) ICD_CODES Diagnosis Code(s): --- Professional --- K44.9, Diaphragmatic hernia without obstruction or gangrene K31.89, Other diseases of stomach and duodenum K27.9, Peptic ulcer, site unspecified, unspecified as acute or chronic, without hemorrhage or perforation CODINGSTMT CPT copyright 2020 [employer]. All rights reserved. The codes documented in this report are preliminary and upon him coder review may be revised to meet current compliance requirements. ATTDRPART Attending Participation: I personally performed the entire procedure. SIGNATURENAME Katy San MD SIGNATUREDATE 10/31/2021 9:54:15 AM SIGNATUREONFILEIND This report has been signed electronically. NUMADDENDA Number of Addenda: 0 INITIATEDON Note Initiated On: 10/31/2021 9:35 AM WSCOPETIME Scope Withdrawal Time 0 hours 1 minute 47 seconds TOTPROCTIME Total Procedure Duration Time 0 hours 3 minutes 44 seconds Normal [facility] Office Visit (Internal Medic ine)on 10-29-2021 Follow-up visit Diagnoses/Problems Assessed Pelvic pain in female (625.9) (R10.2) Abdominal bloating (787.3) (R14.0) Abdominal pain, acute, left upper quadrant (789.02,338.19) (R10.12) Abdominal pain, acute, right upper quadrant (789.01,338.19) (R10.11) GERD (gastroesophageal reflux disease) (530.81) (K21.9) Iron deficiency (280.9) (E61.1) Orders Abdominal bloating, Abdominal pain, acute, left upper quadrant, Abdominal pain, acute, right upper quadrant, Pelvic pain in female Amylase, Serum; Status:Active; Requested for:[id number]; Perform:Lab Services - Lab To Draw (Blood Test); Due:27Jan2022;Ordered; For:Abdominal bloating, Abdominal pain, acute, left upper quadrant, Abdominal pain, acute, right upper quadrant, Pelvic pain in female; Ordered By:Fanny Olivares; Lipase, Serum; Status:Active; Requested for:29Oct2021; Perform:Lab Services - Lab To Draw (Blood Test); Due:27Jan2022;Ordered; For:Abdominal bloating, Abdominal pain, acute, left upper quadrant, Abdominal pain, acute, right upper quadrant, Pelvic pain in female; Ordered By:Fanny Olivares; MRI Abdomen w/wo Contrast; Status:Hold For - Scheduling; Requested for:29Oct2021; Perform:[facility] Radiology Services Imaging; Due:27Jan2022;Ordered; For:Abdominal bloating, Abdominal pain, acute, left upper quadrant, Abdominal pain, acute, right upper quadrant, Pelvic pain in female; Ordered By:Fanny Olivares; Radiologist to Determine Optimal Study : Y Does the patient have a Cochlear Implant, Pacemaker, Defibrilator, Pacing Wire, Brain Aneurysm Clip, Implanted Nerve or Bone Graft Simulator, Implanted Breast Tissue Front Office Clerk, Glucose Monitor, or Neulasta Device? : No Is the patient or breast feeding? : No What are the patient's signs and symptoms? : PELVIC PAIN, ABD PAIN, AND BLOATING Epigastric abdominal tenderness Renew: Sucralfate 1 GM Oral Tablet; TAKE 1 TABLET 4 TIMES DAILY, BEFORE MEALS AND AT BEDTIME Rx By: Fanny Olivares; Dispense: 30 Days ; #:120 Tablet; Refill: 0;For: Epigastric abdominal tenderness; YELITZA = N; Verified Transmission to [employer]; Last Updated By: City Notes; 10/29/2021 2:19:27 PM GERD (gastroesophageal reflux disease) Start: Famotidine 20 MG Oral Tablet (Pepcid); TAKE 1 TABLET TWICE DAILY Rx By: Fanny Olivares; Dispense: 90 Days ; #:180 Tablet; Refill: 3;For: GERD (gastroesophageal reflux disease); YELITZA = N; Verified Transmission to [employer]; Last Updated By: City Notes; 10/29/2021 2:19:21 PM Iron deficiency Complete Blood Count + Differential; Status:Active; Requested for:29Oct2021; Perform:Lab Services - Lab To Draw (Blood Test); Due:27Jan2022;Ordered; For:Iron deficiency; Ordered By:Fanny Olivares; Comprehensive Metabolic Panel; Status:Active; Requested for:[id number]; Perform:Lab Services - Lab To Draw (Blood Test); Due:27Jan2022;Ordered; For:Iron deficiency; Ordered By:Fanny Olivares; Ferritin, Serum; Status:Active; Requested for:29Oct2021; Perform:Lab Services - Lab To Draw (Blood Test); Due:27Jan2022;Ordered; For:Iron deficiency; Ordered By:Fanny Olivares; Folate, Serum; Status:Active; Requested for:29Oct2021; Perform:Lab Services - Lab To Draw (Blood Test); Due:27Jan2022;Ordered; For:Iron deficiency; Ordered By:Fanny Olivares; Iron + TIBC, Serum; Status:Active; Requested for:29Oct2021; Perform:Lab Services - Lab To Draw (Blood Test); Due:27Jan2022;Ordered; For:Iron deficiency; Ordered By:Fanny Olivares; Vitamin B12, Serum; Status:Active; Requested for:29Oct2021; Perform:Lab Services - Lab To Draw (Blood Test); Due:27Jan2022;Ordered; For:Iron deficiency; Ordered By:Fanny Olivares; Pelvic pain in female MRI Pelvis w/wo Contrast; Status:Hold For - Scheduling; Requested for:29Oct2021; Perform:[facility] Radiology Services Imaging; Due:08Nov2021;Ordered; For:Pelvic pain in female; Ordered By:Fanny Olivares; Radiologist to Determine Optimal Study : Y Does the patient have a Cochlear Implant, Pacemaker, Defibrilator, Pacing Wire, Brain Aneurysm Clip, Implanted Nerve or Bone Graft Simulator, Implanted Breast Tissue Front Office Clerk, Glucose Monitor, or Neulasta Device? : No Is the patient or breast feeding? : No What are the patient's signs and symptoms? : PELVIC PAIN, ABD PAIN, AND BLOATING Patient Discussion/Summary F/U AFTER TESTING MRI ABD AND PELVIS TO R/O IBS Provider Impressions I WILL ORDER MRI ABD/PELVIS TO R/O IBS WE DISCUSSED MOST COMMON SIDE EFFECTS OF PRESCRIBED MEDICATIONS. INDICATIONS, RISK, COMPLICATIONS, AND ALTERNATIVES OF MEDICATION/THERAPEUTICS WERE EXPLAINED AND DISCUSSED. PLEASE MONITOR CLOSELY FOR ANY UNTOWARD SIDE EFFECTS OR COMPLICATIONS OF MEDICATIONS. PATIENT IS STRONGLY ADVISED TO BE COMPLIANT WITH RECOMMENDATIONS. QUESTIONS AND CONCERNS WERE ADDRESSED. INSTRUCTED TO CALL, RETURN SOONER, OR GO TO THE ER, IF SYMPTOMS PERSIST OR WORSEN. THEY VOICED UNDERSTANDING AND DENIES FURTHER QUESTIONS AT THIS TIME. TIME CODE 1. PREPARATION FOR PATIENT'S VISIT (REVIEWING CHART, CURRENT MEDI (more content not included)... Normal [employer] Tobacco Screening.on 022 Fall risk assessment a) No falls within the last year [facility] Internal Medicine Work Phone: Tobacco use status [facility] a) Yes [facility] Internal Medicine Work Phone: Tobacco Screening. Yes [facility] Internal Medicine Work Phone: [facility]BDOMEN AND PELVIS W IV CONTRAST Patient Name: AURELIO BHAKTA STUDY: CT ABDOMEN AND PELVIS W IV CONTRAST; 10/23/2021 1:06 pm INDICATION: BILAT UPPER ABD PAIN. SKIN LUMP NEAR UMBILICUS R14.0: Abdominal bloating R10.11: Abdominal pain, acute, right upper quadrant R10.12: Abdominal pain, acute, left upper quadrant. COMPARISON: None ACCESSION NUMBER(S): [id number] ORDERING CLINICIAN: FANNY OLIVARES TECHNIQUE: CT of the abdomen and pelvis was performed following injection of 90 mL Omnipaque 350.. Contiguous axial images were obtained through the abdomen and pelvis. Coronal and sagittal reconstructions were also created. Oral intravenous contrast was administered. FINDINGS: INCLUDED LOWER CHEST: No consolidation or effusion. Mild subpleural fibrotic changes are present in lung bases. Cardiac size. Pericardial. LIVER: The liver is normal in size but is diffusely decreased in density consistent with hepatic steatosis. No hepatic mass lesion. BILE DUCTS: No biliary dilation. GALLBLADDER: Unremarkable. PANCREAS: Unremarkable. SPLEEN: Unremarkable. ADRENAL GLANDS: Unremarkable. KIDNEYS, URETERS AND BLADDER: Normal nephrograms in both kidneys. A cyst is seen in the mid lateral aspect of the left renal cortex measuring about 12 mm in size. No calculus or hydronephrosis. The ureters are normal in course and caliber. The urinary bladder is partially decompressed. REPRODUCTIVE ORGANS: The uterus is normal in size and shows multiple calcifications. An 11.7 mm nodule is seen on the left side of the anterior wall of the uterine fundus consistent with a fibroid. No adnexal mass lesion. BOWEL: No evidence of obstruction or inflammation. The appendix is not visualized. No diverticulosis of colon. Small bowel loops are normal in size. The stomach is decompressed. No hiatal hernia. There is small diverticulum arising medial aspect of the 2nd part of duodenum. VESSELS: Mild calcification in the distal abdominal aorta. No aneurysm. The IVC is unremarkable. PERITONEUM/RETROPERITONEUM/L YMPH NODES: No free fluid or free air. No adenopathy is evident. There are small nonenlarged mesenteric lymph nodes present. MUSCULOSKELETAL: No destructive osseous lesion is evident. Degenerative changes are present at the L5-S1 intervertebral disc and in the sacroiliac joints bilaterally. Bilateral facet arthrosis at L4-5. IMPRESSION: 1. Hepatic steatosis. 2. No acute disease. 3. Degenerative changes of the liver lumbar spine at L5-S1 and the sacroiliac joints bilaterally. Electronically signed by: ABHAY CLARKE MD Normal [facility] CT Abdomen and Pelvis with I V Contraston 10-23-2021 CT Abdomen and Pelvis W contrast IV Normal [facility] Internal Medicine Work Phone: Radiologyon 10-11-2021 US Abdomen Normal [facility] Internal Medicine Work Phone: Height or Weight NOT Doneon 10-08-2021 Fall risk assessment a) No falls within the last year [facility] Internal Medicine Work Phone: Tobacco use status [facility] a) Yes [facility] Internal Medicine Work Phone: Height or Weight NOT Done Yes [facility] Internal Medicine Work Phone: Office Visit (Internal Medic ine)on 10-08-2021 Follow-up visit Diagnoses/Problems Assessed Hypertension (401.9) (I10) 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) Abdominal pain, acute, right upper quadrant (789.01,338.19) (R10.11) Abdominal pain, acute, left upper quadrant (789.02,338.19) (R10.12) Lump of skin (782.2) (R22.9) Abdominal bloating (787.3) (R14.0) Generalized osteoarthritis (715.00) (M15.9) Bursitis of right shoulder (726.10) (M75.51) BMI 34.0-34.9,adult (V85.34) (Z68.34) Orders Abdominal bloating, Abdominal pain, acute, left upper quadrant, Abdominal pain, acute, right upper quadrant, Lump of skin Ultrasound Abdomen Complete; Status:Active; Requested for:[id number]; Perform:[facility] Radiology Services Imaging;Ordered; For:Abdominal bloating, Abdominal pain, acute, left upper quadrant, Abdominal pain, acute, right upper quadrant, Lump of skin; Ordered By:Fanny Olivares; Radiologist to Determine Optimal Study : Y What are the patient's signs and symptoms? : RUQ, LUQ PAIN. ABD LUMP NEAR UMBILICUS Asthma with COPD Start: Trelegy Ellipta 100-62.5-25 MCG/INH Inhalation Aerosol Powder Breath Activated; INHALE 1 PUFFS Daily Rx By: Fanny Olivares; Dispense: 0 Days ; #:1 Each; Refill: 11;For: Asthma with COPD; YELITZA = N; Verified Transmission to [employer]; Last Updated By: City Notes; 10/08/2021 9:41:20 AM; COUPON: Available Bursitis of right shoulder Administered: Triamcinolone Acetonide 40 MG/ML Injection Suspension (Kenalog) Rx By: Fanny Olivares;For: Bursitis of right shoulder; Dose of 1 ML; Intra-articular; YELITZA = N; Administered: 10/08/2021 10:01:00 AM; Last Updated By: Jared Kay; 10/08/2021 10:02:14 AM Edema of foot Renew: Bumetanide 1 MG Oral Tablet; Take 1 tablet daily Rx By: Fanny Olivares; Dispense: 30 Days ; #:30 Tablet; Refill: 0;For: Edema of foot; YELITZA = N; Verified Transmission to [employer]; Last Updated By: City Notes; 10/08/2021 9:41:14 AM Hypertension Start: Metoprolol Succinate ER 25 MG Oral Tablet Extended Release 24 Hour; TAKE 1 TABLET DAILY Rx By: Fanny Olivares; Dispense: 30 Days ; #:30 Tablet; Refill: 0;For: Hypertension; YELITZA = N; Verified Transmission to [employer] 9419; Last Updated By: Ani Gama; 10/08/2021 9:41:17 AM Patient Discussion/Summary 2 WEEKS BP CHECK ABD US Provider Impressions PROCEDURE NOTE: THE RISKS AND BENEFITS OF STEROID INJECTION DISCUSSED WITH THE PATIENT. RISKS INCLUDE BUT ARE NOT LIMITED TO: HYPERGLYCEMIA, BLEEDING, PAIN, CHANGES IN COLOR OR APPEARANCE OF THE SKIN NEAR THE INJECTION SITE, LACK OF RESPONSE, LIGAMENT/TENDON RUPTURE, CARTILAGE DAMAGE, INFECTION, AND ALLERGIC REACTION TO INJECTED MEDICATIONS. VERBAL CONSENT WAS OBTAINED PRIOR TO THE PROCEDURE, ALONG WITH CONFIRMATION OF APPROPRIATE INJECTION LOCATION. USING ASEPTIC TECHNIQUE, 40 MG (1ML) OF KENALOG IN 2 ML LIDOCAINE WERE INJECTED INTO RIGHT SHOULDER ANTERIOR BURSA AREA. PATIENT TOLERATED THE PROCEDURE WELL WITH NO COMPLICATIONS OCCURRING. POST INJECTION INSTRUCTIONS PROVIDED. WE DISCUSSED MOST COMMON SIDE EFFECTS OF PRESCRIBED MEDICATIONS. INDICATIONS, RISK, COMPLICATIONS, AND ALTERNATIVES OF MEDICATION/THERAPEUTICS WERE EXPLAINED AND DISCUSSED. PLEASE MONITOR CLOSELY FOR ANY UNTOWARD SIDE EFFECTS OR COMPLICATIONS OF MEDICATIONS. PATIENT IS STRONGLY ADVISED TO BE COMPLIANT WITH RECOMMENDATIONS. QUESTIONS AND CONCERNS WERE ADDRESSED. INSTRUCTED TO CALL, RETURN SOONER, OR GO TO THE ER, IF SYMPTOMS PERSIST OR WORSEN. THEY VOICED UNDERSTANDING AND DENIES FURTHER QUESTIONS AT THIS TIME. TIME CODE 1. PREPARATION FOR PATIENT'S VISIT (REVIEWING CHART, CURRENT MEDICAL RECORDS, OUTSIDE HEALTH PROVIDER RECORDS, PREVIOUS HISTORY, EXAM, TEST, PROCEDURE, AND MEDICATIONS) 2. FACE TO FACE ENCOUNTER OBTAINING HISTORY FROM THE PATIENT/FAMILY/CAREGIVERS; PERFORMING EVALUATION AND EXAMINATION; ORDERING TESTS OR PROCEDURES; REFERRING AND COMMUNICATING WITH OTHER HEALTHCARE PROVIDERS; COUNSELING AND EDUCATION OF THE PATIENT/FAMILY/CAREGIVERS; INDEPENDENTLY INTERPRETING RESULTS (TESTS, LABS, PROCEDURES, IMAGING) AND COMMUNICATING AND EXPLAINING RESULTS TO THE PATIENT/FAMILY/CAREGIVERS 3. COORDINATION OF CARE; PREPARING AND PRINTING DISCHARGE INSTRUCTIONS AND ANY EDUCATIONAL MATERIAL FOR THE PATIENT/FAMILY/CAREGIVERS. DOCUMENTING CLINICAL INFORMATION IN THE ELECTRONIC MEDICAL RECORD 4. REVIEWING OARRS NEEDED MDM 1) COMPLEXITY: MORE THAN 1 STABLE CHRONIC CONDITION ADDRESSED OR 1 ACUTE ILLNESS ADDRESSED 2)DATA: TESTS INTERPRETED AND OR ORDERED, TOOK INDEPENDENT HISTORY OR RECORDS REVIEWED 3)RISK: MODERATE RISK DUE TO NATURE OF MEDICAL CONDITIONS/COMORBIDITY OR MEDICATIONS ORDERED OR SURGICAL OR PROCEDURE REFERRAL Chief Complaint 1 WEEK F/U WITH LABS. C/O INCREASED DIFFICULTY BREATHING AND USING RESCUE INHALER AT LEAST TWICE A DAY. C/O B/L FOOT EDEMA DESPITE BUMEX USE. C/O STOMACH BLOATING, GERD, AND CONSTIPATION. C/O JOINT PAINS - PREDNISONE OFFERED NO RELIEF. History of Present IllnessPresents today for B/L FOOT EDEMA THAT REMAINS X (more content not included)... Normal Touchworks IRDGE + ROBERT PANELon 09-26-2021 RIDGE WITH REFLEX TO ROBERT Negative Normal NEGATIVE [facility] Comment on above: Result Comment: The Antinuclear Antibody (RIDGE) test was performed using indirect immunofluorescence assay with HEp-2 cells slide. Performed By: #### C MP #### [address] [address] ANTI-CENTROMERE <0.2 Normal [facility] Comment on above: Result Comment: REF VALUES < 1.0 = NEGATIVE >=1.0 = POSITIVE Performed By: #### C MP #### [address] [address] ANTI-CHROMATIN <0.2 Normal [facility] Comment on above: Result Comment: REF VALUES < 1.0 = NEGATIVE >=1.0 = POSITIVE Performed By: #### C MP #### [address] [address] ANTI-DNA [DS] 1.0 IU/mL Normal [facility] Comment on above: Result Comment: REF VALUES NEGATIVE: <= 4 IU/ML EQUIVOCAL: 5- 9 IU/ML POSITIVE: >=10 IU/ML Performed By: #### C MP #### [address] [address] ANTI-MILAGROS-1 <0.2 Normal [facility] Comment on above: Result Comment: REF VALUES < 1.0 = NEGATIVE >=1.0 = POSITIVE Performed By: #### C MP #### [address] [address] ANTI-RIBOSOMAL P <0.2 Normal [facility] Comment on above: Result Comment: REF VALUES < 1.0 = NEGATIVE >=1.0 = POSITIVE Performed By: #### C MP #### [address] [address] ANTI-METAL RIVET MACHINE OPERATOR 0.2 AI Normal [facility] Comment on above: Result Comment: REF VALUES < 1.0 = NEGATIVE >=1.0 = POSITIVE Performed By: #### C MP #### [address] [address] ANTI-SCL-70 <0.2 Normal [facility] Comment on above: Result Comment: REF VALUES < 1.0 = NEGATIVE >=1.0 = POSITIVE Performed By: #### C MP #### [address] [address] ANTI-SM <0.2 Normal [facility] Comment on above: Result Comment: REF VALUES < 1.0 = NEGATIVE >=1.0 = POSITIVE Performed By: #### C MP #### [address] [address] ANTI-SM/METAL RIVET MACHINE OPERATOR <0.2 Normal [facility] Comment on above: Result Comment: REF VALUES < 1.0 = NEGATIVE >=1.0 = POSITIVE Performed By: #### C MP #### [address] [address] ANTI-SSA <0.2 Normal [facility] Comment on above: Result Comment: REF VALUES < 1.0 = NEGATIVE >=1.0 = POSITIVE Performed By: #### C MP #### [address] [address] ANTI-SSB <0.2 Normal [facility] Comment on above: Result Comment: REF VALUES < 1.0 = NEGATIVE >=1.0 = POSITIVE Performed By: #### C MP #### [address] [address] RHEUMATOID FACTORon 09-27-19 RHEUMATOID FACTOR <10 Normal 0 - 15 [facility] Comment on above: Performed By: #### R F #### [facility] [address] [place] [address] BNPon 09-25-2021 Natriuretic peptide B (Bld) [Mass/Vol] 46 pg/mL Normal 0 - 99 [facility] Comment on above: Result Comment: . <1 00 pg/mL - Heart failure unlikely 100-299 pg/mL - Intermediate probability of acute heart . failure exacerbation. Correlate with clinical . context and patient history. >=300 pg/mL - Heart Failure likely. Correlate with clinical . context and patient history. BNP testing is performed using different testing methodology at [facility] than at other [facility]. Direct result comparisons should only be made within the same method. Performed By: #### C MP #### [address] [address] C Reactive Protein, Serumon 09-25-2021 CRP [Mass/Vol] 0.87 mg/dL -[facility] o Internal Medicine Work Phone: Comment on above: REF VALUE< 1.00 C-REACTIVE PROTEINon 022 C-REACTIVE PROTEIN 0.87 mg/dL Normal [facility] Comment on above: Result Comment: REF VALUE < 1.00 Performed By: #### C RP #### [address] [address] CBC AND DIFFERENTIALon 09-25 Basophils (Bld) [#/Vol] 0.10 10*3/uL Normal 0.00 - 0.10 [facility] Comment on above: Performed By: #### C BCDF #### [address] [address] Basophils/100 WBC (Bld) 1.0 % Normal 0.0 - 2.0 [facility] Comment on above: Performed By: #### C BCDF #### [address] [address] Eosinophils (Bld) [#/Vol] 0.20 10*3/uL Normal 0.00 - 0.70 [facility] Comment on above: Performed By: #### C BCDF #### [address] [address] Eosinophils/100 WBC (Bld) 2.2 % Normal 0.0 - 6.0 [facility] Comment on above: Performed By: #### C BCDF #### [address] [address] Erythrocyte distribution width (RBC) [Ratio] 14.9 % High 11.5 - 14.5 [facility] Comment on above: Performed By: #### C BCDF #### [address] [address] Hematocrit (Bld) [Volume fraction] 35.9 % Low 36.0 - 46.0 [facility] Comment on above: Performed By: #### C BCDF #### [address] [address] Hemoglobin (Bld) [Mass/Vol] 11.8 g/dL Low 12.0 - 16.0 [facility] Comment on above: Performed By: #### C BCDF #### [address] [address] Lymphocytes (Bld) [#/Vol] 2.20 10*3/uL Normal 1.20 - 4.80 [facility] Comment on above: Performed By: #### C BCDF #### [address] [address] Lymphocytes/100 WBC (Bld) 20.2 % Normal 13.0 - 44.0 [facility] Comment on above: Performed By: #### C BCDF #### [address] [address] MCHC (RBC) [Mass/Vol] 32.9 g/dL Normal 32.0 - 36.0 [facility] Comment on above: Performed By: #### C BCDF #### [address] [address] MCV (RBC) [Entitic vol] 86 fL Normal 80 - 100 [facility] Comment on above: Performed By: #### C BCDF #### [address] [address] Monocytes (Bld) [#/Vol] 0.70 10*3/uL Normal 0.10 - 1.00 [facility] Comment on above: Performed By: #### C BCDF #### [address] [address] Monocytes/100 WBC (Bld) 6.0 % Normal 2.0 - 10.0 [facility] Comment on above: Performed By: #### C BCDF #### [address] [address] Neutrophils (Bld) [#/Vol] 7.80 10*3/uL High 1.20 - 7.70 [facility] Comment on above: Result Comment: Perc ent differential counts (%) should be interpreted in the context of the absolute cell counts (cells/L). Performed By: #### C BCDF #### [address] [address] Neutrophils/100 WBC (Bld) 70.6 % Normal 40.0 - 80.0 [facility] Comment on above: Performed By: #### C BCDF #### [address] [address] Platelets (Bld) [#/Vol] 347 10*3/uL Normal 150 - 450 [facility] Comment on above: Performed By: #### C BCDF #### [address] [address] RBC 4.19 x10E12/L Normal 4.00 - 5.20 [facility] Comment on above: Performed By: #### C BCDF #### [address] [address] WBC (Bld) [#/Vol] 11.1 10*3/uL Normal 4.4 - 11.3 [facility] Comment on above: Performed By: #### C BCDF #### [address] [address] COMPREHENSIVE PANELon 2021 Albumin [Mass/Vol] 4.2 g/dL Normal 3.4 - 5.0 [facility] Comment on above: Performed By: #### C MP #### [address] [address] ALP [Catalytic activity/Vol] 69 U/L Normal 33 - 136 [facility] Comment on above: Performed By: #### C MP #### [address] [address] ALT [Catalytic activity/Vol] 33 U/L Normal 7 - 45 [facility] Comment on above: Result Comment: Nova ents treated with Sulfasalazine may generate falsely decreased results for ALT. Performed By: #### C MP #### [address] [address] Anion gap [Moles/Vol] 10 mmol/L Normal 10 - 20 [facility] Comment on above: Performed By: #### C MP #### [address] [address] AST [Catalytic activity/Vol] 25 U/L Normal 9 - 39 [facility] Comment on above: Performed By: #### C MP #### [address] [address] Bilirubin [Mass/Vol] 0.3 mg/dL Normal 0.0 - 1.2 [facility] Comment on above: Performed By: #### C MP #### [address] [address] Calcium [Mass/Vol] 9.7 mg/dL Normal 8.6 - 10.3 [facility] Comment on above: Performed By: #### C MP #### [address] [address] Chloride [Moles/Vol] 101 mmol/L Normal 98 - 107 [facility] Comment on above: Performed By: #### C MP #### [address] [address] Creatinine [Mass/Vol] 0.71 mg/dL Normal 0.50 - 1.05 [facility] Comment on above: Performed By: #### C MP #### [address] [address] eGFR FEMALE >90 Normal >90 [facility] Comment on above: Result Comment: CALC ULATIONS OF ESTIMATED GFR ARE PERFORMED USING THE 2020 CKD-EPI STUDY REFIT EQUATION WITHOUT THE RACE VARIABLE FOR THE IDMS-TRACEABLE CREATININE METHODS. https://jasn.asnjournals.org/content/early/ASN.08476650 88 Performed By: #### C MP #### [address] [address] Glucose [Mass/Vol] 89 mg/dL Normal 74 - 99 [facility] Comment on above: Performed By: #### C MP #### [address] [address] HCO3 (Bld) [Moles/Vol] 31 mmol/L Normal 21 - 32 [facility] Comment on above: Performed By: #### C MP #### [address] [address] Potassium [Moles/Vol] 4.2 mmol/L Normal 3.5 - 5.3 [facility] Comment on above: Performed By: #### C MP #### [address] [address] Protein [Mass/Vol] 7.4 g/dL Normal 6.4 - 8.2 [facility] Comment on above: Performed By: #### C MP #### [address] [address] Sodium [Moles/Vol] 138 mmol/L Normal 136 - 145 [facility] Comment on above: Performed By: #### C MP #### [address] [address] Urea nitrogen [Mass/Vol] 14 mg/dL Normal 6 - 23 [facility] Comment on above: Performed By: #### C MP #### [address] [address] Complete Blood Count + Diffe rentialon 09-25-2021 Basophils/100 WBC (Bld) 1.0 % 0.0 - 2.0 [facility] Internal Medicine Work Phone: Erythrocyte distribution width (RBC) [Ratio] 14.9 % above high threshold See Below [facility] Internal [facility] Work Phone: Comment on above: Reference Range: 11. 5 - 14.5 Hematocrit (Bld) [Volume fraction] 35.9 % below low threshold See Below [facility] Work Phone: Comment on above: Reference Range: 36. 0 - 46.0 Hemoglobin (Bld) [Mass/Vol] 11.8 g/dL below low threshold See Below [facility] Work Phone: Comment on above: Reference Range: 12. 0 - 16.0 Lymphocytes/100 WBC (Bld) 20.2 % See Below [facility] Work Phone: Comment on above: Reference Range: 13. 0 - 44.0 MCHC (RBC) [Mass/Vol] 32.9 g/dL See Below [facility] Work Phone: Comment on above: Reference Range: 32. 0 - 36.0 MCV (RBC) [Entitic vol] 86 fL 80 - 100 [facility] Work Phone: Monocytes/100 WBC (Bld) 6.0 % 2.0 - 10.0 [facility] Work Phone: Neutrophils/100 WBC (Bld) 70.6 % See Below [facility] Work Phone: Comment on above: Reference Range: 40. 0 - 80.0 Platelets (Bld) [#/Vol] 347 10*3/uL 150 - 450 [facility] Work Phone: RBC (Bld) [#/Vol] 4.19 {x10E12/L} See Below [facility] Work Phone: Comment on above: Reference Range: 4.0 0 - 5.20 WBC (Bld) [#/Vol] 11.1 10*3/uL 4.4 - 11.3 [facility] Work Phone: Complete Blood Count + Differential 0.10 {x10E9/L} See Below [facility] Work Phone: Comment on above: Reference Range: 0.0 0 - 0.10 Complete Blood Count + Differential 0.20 {x10E9/L} See Below [facility] Work Phone: Comment on above: Reference Range: 0.0 0 - 0.70 Complete Blood Count + Differential 0.70 {x10E9/L} See Below [facility] Work Phone: Comment on above: Reference Range: 0.1 0 - 1.00 Complete Blood Count + Differential 2.20 {x10E9/L} See Below [facility] Internal Medicine Work Phone: Comment on above: Reference Range: 1.2 0 - 4.80 Complete Blood Count + Differential 7.80 {x10E9/L} above high threshold See Below [facility] Work Phone: Comment on above: Reference Range: 1.2 0 - 7.70 Percent differential counts (%) should be interpreted in the context of the absolute cell counts (cells/L). Complete Blood Count + Differential 2.2 % 0.0 - 6.0 [facility] Work Phone: FERRITINon 09-25-2021 FERRITIN 18 ug/L Normal 8 - 150 [facility] Comment on above: Performed By: #### F ERRI #### [address] [address] FOLATE, SERUMon 09-25-2021 Folate [Mass/Vol] 7.1 ng/mL Normal >5.0 [facility] Comment on above: Result Comment: Low <3.4 Borderline 3.4-5.0 Normal >5.0 . Patients receiving more than 5 mg/day of biotin may have interference in test results. A sample should be taken no sooner than eight hours after previous dose. Contact the testing laboratory for additional information. Performed By: #### C MP #### [address] [address] Ferritin, Serumon 09-25-2021 Ferritin [Mass/Vol] 18 ug/L 8 - 150 [facility] Internal [facility] Work Phone: Folate, Serumon 09-25-2021 Folate [Mass/Vol] 7.1 ng/mL >5.0 [facility] Work Phone: Comment on above: Low <3.4Borderline 3 .4-5.0Normal >5.0. Patients receiving more than 5 mg/day of biotin may have interference in test results. A sample should be taken no sooner than eight hours after previous dose. Contact the testing laboratory for additional information. IRON + TIBCon 09-25-2021 % SATURATION 5 % Low 25 - 45 [facility] Comment on above: Performed By: #### I RONT #### [address] [address] Iron [Mass/Vol] 23 ug/dL Low 35 - 150 [facility] Comment on above: Performed By: #### I RONT #### [address] [address] TIBC 427 ug/dL Normal 240 - 445 [facility] Comment on above: Performed By: #### I RONT #### [address] [address] Laboratory - Chemistry and C hemistry - challengeon 09-25-2021 Albumin BCP dye [Mass/Vol] 4.2 g/dL 3.4 - 5.0 [facility] Internal [facility] Work Phone: ALP [Catalytic activity/Vol] 69 U/L 33 - 136 [facility] Internal [facility] Work Phone: ALT With P-5'-P [Catalytic activity/Vol] 33 U/L 7 - 45 [facility] Work Phone: Comment on above: Patients treated wit h Sulfasalazine may generate falsely decreased results for ALT. Anion gap [Moles/Vol] 10 mmol/L 10 - 20 [facility] Internal [facility] Work Phone: AST With P-5'-P [Catalytic activity/Vol] 25 U/L 9 - 39 [facility] Internal Medicine Work Phone: Bilirubin [Mass/Vol] 0.3 mg/dL 0.0 - 1.2 [facility] Internal [facility] Work Phone: Calcium [Mass/Vol] 9.7 mg/dL 8.6 - 10.3 [facility] Work Phone: Chloride [Moles/Vol] 101 mmol/L 98 - 107 [facility] Internal [facility] Work Phone: CO2 [Moles/Vol] 31 mmol/L 21 - 32 [facility] Internal Medicine Work Phone: Creatinine [Mass/Vol] 0.71 mg/dL See Below [facility] Medicine Work Phone: Comment on above: Reference Range: 0.5 0 - 1.05 Glucose [Mass/Vol] 89 mg/dL 74 - 99 [facility] Medicine Work Phone: Iron [Mass/Vol] 23 ug/dL below low threshold 35 - 150 [facility] Medicine Work Phone: Iron binding capacity [Mass/Vol] 427 ug/dL 240 - 445 [facility] Medicine Work Phone: Potassium [Moles/Vol] 4.2 mmol/L 3.5 - 5.3 [facility] Work Phone: Protein [Mass/Vol] 7.4 g/dL 6.4 - 8.2 [facility] Work Phone: Sodium [Moles/Vol] 138 mmol/L 136 - 145 [facility] Work Phone: Urea nitrogen [Mass/Vol] 14 mg/dL 6 - 23 [facility] Medicine Work Phone: Laboratory - Serology - non- microon 09-25-2021 Centromere protein B Ab Qn (S) <0.2 [facility] Work Phone: Comment on above: REF VALUES < 1.0 = N EGATIVE >=1.0 = POSITIVE Chromatin Ab Qn <0.2 [facility] Internal Medicine Work Phone: Comment on above: REF VALUES < 1.0 = N EGATIVE >=1.0 = POSITIVE DNA double strand Ab Qn (S) 1.0 [IU]/mL [facility] Work Phone: Comment on above: REF VALUESNEGATIVE: <= 4 IU/MLEQUIVOCAL: 5- 9 IU/MLPOSITIVE: >=10 IU/ML Milagros-1 extractable nuclear Ab IA Ql (S) <0.2 [facility] Work Phone: Comment on above: REF VALUES < 1.0 = N EGATIVE >=1.0 = POSITIVE Nuclear Ab Hep2 substrate Ql (S) Negative NEGATIVE [facility] Work Phone: Comment on above: The Antinuclear Anti body (RIDGE) test was performed using indirect immunofluorescence assay with HEp-2 cells slide. Ribonucleoprotein extractable nuclear Ab IA Qn (S) 0.2 {AI} [facility] Work Phone: Comment on above: REF VALUES < 1.0 = N EGATIVE >=1.0 = POSITIVE Ribosomal P Ab Qn (S) <0.2 [facility] Work Phone: Comment on above: REF VALUES < 1.0 = N EGATIVE >=1.0 = POSITIVE SCL-70 extractable nuclear Ab IA Ql (S) <0.2 [facility] Work Phone: Comment on above: REF VALUES < 1.0 = N EGATIVE >=1.0 = POSITIVE Sjogrens syndrome-A extractable nuclear Ab IA Qn (S) <0.2 [facility] Work Phone: Comment on above: REF VALUES < 1.0 = N EGATIVE >=1.0 = POSITIVE Sjogrens syndrome-B extractable nuclear Ab IA Qn (S) <0.2 [facility] Work Phone: Comment on above: REF VALUES < 1.0 = N EGATIVE >=1.0 = POSITIVE Castro extractable nuclear Ab IA Qn (S) <0.2 [facility] Work Phone: Comment on above: REF VALUES < 1.0 = N EGATIVE >=1.0 = POSITIVE Castro extractable nuclear Ab+Ribonucleoprotei n extractable nuclear Ab IA Ql (S) <0.2 [facility] Work Phone: Comment on above: REF VALUES < 1.0 = N EGATIVE >=1.0 = POSITIVE No Panel Informationon 09-25 46 pg/mL 0 - 99 [facility] Work Phone: Comment on above: . <100 pg/mL - Heart failure [id number] pg/mL - Intermediate probability of acute heart. failure exacerbation. Correlate with clinical. context and patient history. >=300 pg/mL - Heart Failure likely. Correlate with clinical. context and patient history.BNP testing is performed using different testing methodology at [facility] than at other [facility]. Direct result comparisons should only be made within the same method. >90 >90 [facility] Internal Medicine Work Phone: Comment on above: CALCULATIONS OF BELA MATED GFR ARE PERFORMED USING THE 2020 CKD-EPI STUDY REFIT EQUATION WITHOUT THE RACE VARIABLE FOR THE IDMS-TRACEABLE CREATININE METHODS.https://jasn.asnjournals.org/content/early//ASN. 1309012489 5 % below low threshold 25 - 45 [facility] Internal Medicine Work Phone: Office Visit (Internal Medic ine)on 09-25-2021 Follow-up visit Diagnoses/Problems Assessed Hypertension (401.9) (I10) Elevated WBC count (288.60) (D72.829) Edema of foot (782.3) (R60.0) Joint pain (719.40) (M25.50) Low hemoglobin (285.9) (D64.9) Orders Edema of foot Start: Bumetanide 0.5 MG Oral Tablet; TAKE 1 TABLET Daily prn Rx By: Fanny Olivares; Dispense: 30 Days ; #:30 Tablet; Refill: 0;For: Edema of foot; YELITZA = N; Sent To: [facility] 1448 Brain Natriuretic Peptide BNP; Status:Active; Requested for:25Sep2021; Perform:Lab Services - Lab To Draw (Blood Test); Due:[id number];Ordered; For:Edema of foot; Ordered By:Fanny Olivares; Comprehensive Metabolic Panel; Status:Active; Requested for:25Sep2021; Perform:Lab Services - Lab To Draw (Blood Test); Due:[id number];Ordered; For:Edema of foot; Ordered By:Fanny Olivares; Elevated WBC count Complete Blood Count + Differential; Status:Active; Requested for:25Nov2021; Perform:Lab Services - Lab To Draw (Blood Test); Due:23Feb2022;Ordered; For:Elevated WBC count; Ordered By:Fanny Olivares; Complete Blood Count + Differential; Status:Active; Requested for:25Sep2021; Perform:Lab Services - Lab To Draw (Blood Test); Due:24Dec2021;Ordered; For:Elevated WBC count; Ordered By:Fanny Olivares; Joint pain Start: predniSONE 10 MG Oral Tablet; TAKE 3 TABLET Daily Rx By: Fanny Olivares; Dispense: 5 Days ; #:15 Tablet; Refill: 0;For: Joint pain; YELITZA = N; Sent To: [facility] 1448 Anti Nuclear Antibody Panel (with automatic ROBERT Panel); Status:Active; Requested for:25Sep2021; Perform:Lab Services - Lab To Draw (Blood Test); Due:24Dec2021;Ordered; For:Joint pain; Ordered By:Fanny Olivares; C Reactive Protein, Serum; Status:Active; Requested for:25Sep2021; Perform:Lab Services - Lab To Draw (Blood Test); Due:24Dec2021;Ordered; For:Joint pain; Ordered By:Fanny Olivares; Rheumatoid Factor, Serum or Plasma; Status:Active; Requested for:25Sep2021; Perform:Lab Services - Lab To Draw (Blood Test); Due:24Dec2021;Ordered; For:Joint pain; Ordered By:Fanny Olivares; Sedimentation Rate, Erythrocyte; Status:Active; Requested for:25Sep2021; Perform:Lab Services - Lab To Draw (Blood Test); Due:24Dec2021;Ordered; For:Joint pain; Ordered By:Fanny Olivares; Uric Acid, Serum; Status:Active; Requested for:25Sep2021; Perform:Lab Services - Lab To Draw (Blood Test); Due:[id number];Ordered; For:Joint pain; Ordered By:Fanny Olivares; Low hemoglobin Ferritin, Serum; Status:Active; Requested for:25Sep2021; Perform:Lab Services - Lab To Draw (Blood Test); Due:[id number];Ordered; For:Low hemoglobin; Ordered By:Fanny Olivares; Folate, Serum; Status:Active; Requested for:25Sep2021; Perform:Lab Services - Lab To Draw (Blood Test); Due:[id number];Ordered; For:Low hemoglobin; Ordered By:Fanny Olivares; Iron + TIBC, Serum; Status:Active; Requested for:[id number]; Perform:Lab Services - Lab To Draw (Blood Test); Due:[id number];Ordered; For:Low hemoglobin; Ordered By:Fanny Olivares; Vitamin B12, Serum; Status:Active; Requested for:[id number]; Perform:Lab Services - Lab To Draw (Blood Test); Due:05Iui9191;Ordered; For:Low hemoglobin; Ordered By:Fanny Olivares; Prediabetes Comprehensive Metabolic Panel; Status:Active; Requested for:[id number]; Perform:Lab Services - Lab To Draw (Blood Test); Due:[id number];Ordered; For:Prediabetes; Ordered By:Fanny Olivares; Hemoglobin A1C; Status:Active; Requested for:[id number]; Perform:Lab Services - Lab To Draw (Blood Test); Due:[id number];Ordered; For:Prediabetes; Ordered By:Fanny Olivares; Patient Discussion/Summary 1 WEEK WITH LABS Provider Impressions WE DISCUSSED MOST COMMON SIDE EFFECTS OF PRESCRIBED MEDICATIONS. INDICATIONS, RISK, COMPLICATIONS, AND ALTERNATIVES OF MEDICATION/THERAPEUTICS WERE EXPLAINED AND DISCUSSED. PLEASE MONITOR CLOSELY FOR ANY UNTOWARD SIDE EFFECTS OR COMPLICATIONS OF MEDICATIONS. PATIENT IS STRONGLY ADVISED TO BE COMPLIANT WITH RECOMMENDATIONS. QUESTIONS AND CONCERNS WERE ADDRESSED. INSTRUCTED TO CALL, RETURN SOONER, OR GO TO THE ER, IF SYMPTOMS PERSIST OR WORSEN. THEY VOICED UNDERSTANDING AND DENIES FURTHER QUESTIONS AT THIS TIME. TIME CODE 1. PREPARATION FOR PATIENT'S VISIT (REVIEWING CHART, CURRENT MEDICAL RECORDS, OUTSIDE HEALTH PROVIDER RECORDS, PREVIOUS HISTORY, EXAM, TEST, PROCEDURE, AND MEDICATIONS) 2. FACE TO FACE ENCOUNTER OBTAINING HISTORY FROM THE PATIENT/FAMILY/CAREGIVERS; PERFORMING EVALUATION AND EXAMINATION; ORDERING TESTS OR PROCEDURES; REFERRING AND COMMUNICATING WITH OTHER HEALTHCARE PROVIDERS; COUNSELING AND EDUCATION OF THE PATIENT/FAMILY/CAREGIVERS; INDEPENDENTLY INTERPRETING RESULTS (TESTS, LABS, PROCEDURES, IMAGING) AND COMMUNICATING AND EXPLAINING RESULTS TO THE PATIENT/FAMILY/CAREGIVERS 3. COORDINATION OF CARE; PREPARING AND PRINTING DISCHARGE INSTRUCTIONS AND ANY EDUCATIONAL MATERIAL FOR THE PATIENT/FAMILY/CAREGIVERS. DOCUMENTING CLINICAL INFORMATION IN THE ELECTRONIC MEDICAL RECORD 4. REVIEWING OARRS NEEDED MDM 1) COMPLEXITY: MORE THAN 1 STABLE CHRONIC CONDITION ADDRESSED OR 1 ACUTE ILLNESS ADDRESSED 2)DATA: TESTS (more content not included)... Normal [facility] Rheumatoid Factor, Serum or Plasmaon 09-25-2021 Rheumatoid factor Nephelometry Qn (S) <10 0 - 15 [facility] Work Phone: SEDIMENTATION RATE, ERYTHROC YTEon 09-25-2021 SEDIMENTATION RATE, ERYTHROCYTE 57 mm/h High 0 - 30 [facility] Comment on above: Performed By: #### C BCDF #### [address] [address] Sedimentation Rate, Erythroc yteon 09-25-2021 ESR (Bld) [Velocity] 57 mm/h above high threshold 0 - 30 [facility] Work Phone: Tobacco Screening.on 022 Fall risk assessment a) No falls within the last year [facility] Work Phone: Tobacco use status CPHS a) Yes [facility] Work Phone: Tobacco Screening. Yes [facility] Work Phone: URIC ACIDon 09-25-2021 Urate [Mass/Vol] 4.3 mg/dL Normal 2.3 - 6.7 [facility] Comment on above: Result Comment: Zarina puncture immediately after or during the administration of Metamizole may lead to falsely low results. Testing should be performed immediately prior to Metamizole dosing. Performed By: #### C MP #### [address] [address] Uric Acid, Serumon Urate [Mass/Vol] 4.3 mg/dL 2.3 - 6.7 [facility] Work Phone: Comment on above: Venipuncture immedia tely after or during the administration of Metamizole may lead to falsely low results. Testing should be performed immediately prior to Metamizole dosing. VITAMIN B12on 09-25-2021 Cobalamin (Vitamin B12) [Mass/Vol] 426 pg/mL Normal 211 - 911 [facility] Comment on above: Performed By: #### V TB12 #### [id number] [place] [address] Vitamin B12, Serumon 022 Cobalamin (Vitamin B12) [Mass/Vol] 426 pg/mL 211 - 911 [facility] Work Phone: Medicare Annual Wellness Vis césar 09-11-2021 Medicare Annual Wellness Visit *Chief Complaint MEDICARE WELLNESS; F/U LABS, COLON/EGD History of Present Illness The patient is being seen for the subsequent annual wellness visit. Past Medical, Surgical and Family History: reviewed and updated in chart. Interval History: Patient has not been hospitalized previously. Medications and Supplements: Review of all medications by a prescribing practitioner or clinical pharmacist (such as prescriptions, OTCs, herbal therapies and supplements) documented in the medical record. No, the patient is not using opioids. Patient Self Assessment of Health Status: good. Tobacco use: Non-User Alcohol use: As noted in social history Illicit drug use: Non-User Current diet: well balanced diet, does consume adequate fluids and does consume caffeine. Exercise Frequency: the patient does not exercise. Depression/Suicide Screening: Patient has a current diagnosis of depression . During the past 2 weeks, the patient has not felt down, depressed or hopeless. During the past 2 weeks, the patient has not felt little interest or pleasure in doing things. Hearing Impairment: none. Cognitive Impairment: No cognitive impairment observed, patient or family reported no cognitive impairment. Bathing: performs independently. Dressing: performs independently. Walking: performs independently. Toileting: performs independently. Feeding: performs independently. Personal Hygiene: performs independently. Bowels: continent. Bladder: continent. Managing Finances: performs independently. Shopping: performs independently. Managing Medications: performs independently. Housework / Basic Home Maintenance: performs independently. Handling Transportation: performs independently. Preparing Meals: performs independently. Using the Telephone/ Communication Devices: performs independently. Falls Risk Screening:. AURELIO has not fallen in the last 6 months. Home safety risk factors: none. Advance directives:. Advance Care Planning discussed and documented in the medical record, patient did not wish or was not able to name a surrogate decision maker or provide an advance care plan. Patient has no living will. Patient has no healthcare POA. Presents today for MEDICARE WELLNESS AND [facility] LABS. NO NEW COMPLAINTS ABD BLOATING - IMPROVED WITH PROBIOTIC AND NEXIUM DEPRESSION/ANXIETY- REFUSING MED MANAGEMENT FOR DEPRESSION. PRN VESTRIL FOR ANXIETY HELPING COPD- HER INSURANCE WILL NOT COVER SYMBICORT WITHOUT A FORMULA EXCEPTION. WILL CONTACT COMFORT HTN- STABLE GASTRIC ULCER 10/31/21 REPEAT EGD WBC- IMPROVING PREDIABETES- HGA1C 6.1%. DISCUSSED DIET MODIFICATIONS Review of Systems Constitutional: not feeling poorly, no fever, no recent weight gain, no recent weight loss and no chills. Eyes: no blurred vision, no diplopia and no eyesight problems. ENT: no hearing loss, no tinnitus, no earache, no sore throat, no hoarseness and no swollen glands in the neck. Cardiovascular: no chest pain, no tightness or heavy pressure, no shortness of breath, no palpitations and no lower extremity edema. Respiratory: no cough, not coughing up sputum, no wheezing that is consistent with asthma and no shortness of breath during exertion. Gastrointestinal: no change in bowel habits, no diarrhea, no constipation, no bloody stools, no nausea, no vomiting, no abdominal pain, no signs and symptoms of ulcer disease, no noel colored stools and no intolerance to fatty foods. Genitourinary: no urinary frequency, no dysuria, no burning sensation during urination and no hematuria. Musculoskeletal: no arthralgias, no joint stiffness, no muscle weakness, no back pain and no difficulty walking. Skin: no rashes, no change in skin color and pigmentation, no skin lesions and no skin lumps. Neurological: no headaches, no dizziness, no seizures, no tingling, no numbness, no signs and symptoms of stroke and no limb weakness. Psychiatric: no confusion, no memory lapses or loss, no depression, no sleep disturbances, no anxiety and not suicidal. 10 SYSTEMS REVIEWED AND NEGATIVE, WHICH THE EXCEPTION OF HPI LISTED ABOVE 'Scores and Scales' PHQ-9 [id number] 02:01PM PHQ-9 #1. Little interest or pleasure in doing things2-More than half the days PHQ-9 #2. Feeling down, depressed, or hopelesS2-More than half the days PHQ-9 #3. Trouble falling or staying asleep, or sleeping too much3-Nearly every day PHQ-9 #4. Feeling tired or having little energy0-Not at all PHQ-9 #5. Poor appetite or overeating0-Not at all PHQ-9 #6. Feeling bad about yourself or you are a failure or that you have let yourself or your family down0-Not at all PHQ-9 #7. Trouble concentrating on things, such as reading the newspaper or watch television3-Nearly every day PHQ-9 #8. Moving or speaking so slowly that other people could have noticed. Or the opposite-being so fidgety or restless that you have been moving around a lot more than usual0-Not at all PHQ-9 #9. Thoughts that you would be bet (more content not included)... Normal [facility] Tobacco Screening.on 022 Fall risk assessment a) No falls within the last year [facility] Work Phone: Tobacco use status CPHS a) Yes [facility] Work Phone: Tobacco Screening. Yes [facility] Work Phone: CBC AND DIFFERENTIALon 09-09 Basophils (Bld) [#/Vol] 0.10 10*3/uL Normal 0.00 - 0.10 [facility] Comment on above: Performed By: #### C BCDF #### [address] [address] Basophils/100 WBC (Bld) 1.0 % Normal 0.0 - 2.0 [facility] Comment on above: Performed By: #### C BCDF #### [address] [address] Eosinophils (Bld) [#/Vol] 0.40 10*3/uL Normal 0.00 - 0.70 [facility] Comment on above: Performed By: #### C BCDF #### [address] [address] Eosinophils/100 WBC (Bld) 3.2 % Normal 0.0 - 6.0 [facility] Comment on above: Performed By: #### C BCDF #### [address] [address] Erythrocyte distribution width (RBC) [Ratio] 14.0 % Normal 11.5 - 14.5 [facility] Comment on above: Performed By: #### C BCDF #### [address] [address] Hematocrit (Bld) [Volume fraction] 35.3 % Low 36.0 - 46.0 [facility] Comment on above: Performed By: #### C BCDF #### [address] [address] Hemoglobin (Bld) [Mass/Vol] 11.9 g/dL Low 12.0 - 16.0 [facility] Comment on above: Performed By: #### C BCDF #### [address] [address] Lymphocytes (Bld) [#/Vol] 2.90 10*3/uL Normal 1.20 - 4.80 [facility] Comment on above: Performed By: #### C BCDF #### [address] [address] Lymphocytes/100 WBC (Bld) 24.5 % Normal 13.0 - 44.0 [facility] Comment on above: Performed By: #### C BCDF #### [address] [address] MCHC (RBC) [Mass/Vol] 33.6 g/dL Normal 32.0 - 36.0 [facility] Comment on above: Performed By: #### C BCDF #### [address] [address] MCV (RBC) [Entitic vol] 88 fL Normal 80 - 100 [facility] Comment on above: Performed By: #### C BCDF #### [address] [address] Monocytes (Bld) [#/Vol] 0.80 10*3/uL Normal 0.10 - 1.00 [facility] Comment on above: Performed By: #### C BCDF #### [address] [address] Monocytes/100 WBC (Bld) 6.6 % Normal 2.0 - 10.0 [facility] Comment on above: Performed By: #### C BCDF #### [address] [address] Neutrophils (Bld) [#/Vol] 7.50 10*3/uL Normal 1.20 - 7.70 [facility] Comment on above: Result Comment: Perc ent differential counts (%) should be interpreted in the context of the absolute cell counts (cells/L). Performed By: #### C BCDF #### [address] [address] Neutrophils/100 WBC (Bld) 64.7 % Normal 40.0 - 80.0 [facility] Comment on above: Performed By: #### C BCDF #### [address] [address] Platelets (Bld) [#/Vol] 330 10*3/uL Normal 150 - 450 [facility] Comment on above: Performed By: #### C BCDF #### [address] [address] RBC 4.03 x10E12/L Normal 4.00 - 5.20 [facility] Comment on above: Performed By: #### C BCDF #### [address] [address] WBC (Bld) [#/Vol] 11.6 10*3/uL High 4.4 - 11.3 [facility] Comment on above: Performed By: #### C BCDF #### [address] [address] Complete Blood Count + Diffe lavern 09-09-2021 Basophils/100 WBC (Bld) 1.0 % 0.0 - 2.0 [facility] Work Phone: Erythrocyte distribution width (RBC) [Ratio] 14.0 % See Below [facility] Work Phone: Comment on above: Reference Range: 11. 5 - 14.5 Hematocrit (Bld) [Volume fraction] 35.3 % below low threshold See Below [facility] Work Phone: Comment on above: Reference Range: 36. 0 - 46.0 Hemoglobin (Bld) [Mass/Vol] 11.9 g/dL below low threshold See Below [facility] Work Phone: Comment on above: Reference Range: 12. 0 - 16.0 Lymphocytes/100 WBC (Bld) 24.5 % See Below [facility] Work Phone: Comment on above: Reference Range: 13. 0 - 44.0 MCHC (RBC) [Mass/Vol] 33.6 g/dL See Below [facility] Work Phone: Comment on above: Reference Range: 32. 0 - 36.0 MCV (RBC) [Entitic vol] 88 fL 80 - 100 [facility] Work Phone: Monocytes/100 WBC (Bld) 6.6 % 2.0 - 10.0 [facility] Work Phone: Neutrophils/100 WBC (Bld) 64.7 % See Below [facility] Work Phone: Comment on above: Reference Range: 40. 0 - 80.0 Platelets (Bld) [#/Vol] 330 10*3/uL 150 - 450 [facility] Work Phone: RBC (Bld) [#/Vol] 4.03 {x10E12/L} See Below [facility] Work Phone: Comment on above: Reference Range: 4.0 0 - 5.20 WBC (Bld) [#/Vol] 11.6 10*3/uL above high threshold 4.4 - 11.3 [facility] Work Phone: Complete Blood Count + Differential 0.10 {x10E9/L} See Below [facility] Work Phone: Comment on above: Reference Range: 0.0 0 - 0.10 Complete Blood Count + Differential 0.40 {x10E9/L} See Below [facility] Work Phone: Comment on above: Reference Range: 0.0 0 - 0.70 Complete Blood Count + Differential 0.80 {x10E9/L} See Below [facility] Work Phone: Comment on above: Reference Range: 0.1 0 - 1.00 Complete Blood Count + Differential 2.90 {x10E9/L} See Below [facility] Work Phone: Comment on above: Reference Range: 1.2 0 - 4.80 Complete Blood Count + Differential 7.50 {x10E9/L} See Below [facility] Work Phone: Comment on above: Reference Range: 1.2 0 - 7.70 Percent differential counts (%) should be interpreted in the context of the absolute cell counts (cells/L). Complete Blood Count + Differential 3.2 % 0.0 - 6.0 [facility] Work Phone: Colonoscopyon 09-05-2021 Colonoscopy PATIENTNAME Patient Name: Aurelio Bhakta EXAMDATE Procedure Date: 09/05/2021 8:54 AM PATIENTID PATIENTACCOUNTNUM PATIENTDOB Date of : 1960 ADMITTYPE Admit Type: Outpatient PATIENTROOM Site: [place] [address] ETHNICITY Ethnicity: Not or RACE Race: White PROVDR Attending MD: Katy San MD ENDOPROCEDURENAME Procedure: Colonoscopy PRIMARYPROVIDER Providers: Katy San MD (Doctor), Karyna Ravi RN (Nurse), Kyung Jimenez RN (Nurse) EDREFPROVIDER Referring: Katy San MD CURRENT_MEDS Medicines: See the other procedure note for documentation of the administered medications COMPLIC Complications: No immediate complications. ENDOPROCEDURETEXT Procedure: Pre-Anesthesia Assessment: - Prior to the procedure, a History and Physical was performed, and patient medications and allergies were reviewed. The patient's tolerance of previous anesthesia was also reviewed. The risks and benefits of the procedure and the sedation options and risks were discussed with the patient. All questions were answered, and informed consent was obtained. Prior Anticoagulants: The patient has taken no anticoagulant or antiplatelet agents except for NSAID medication. ASA Grade Assessment: III - A patient with severe systemic disease. After reviewing the risks and benefits, the patient was deemed in satisfactory condition to undergo the procedure. - Prior to the procedure, a History and Physical was performed, and patient medications and allergies were reviewed. The patient's tolerance of previous anesthesia was also reviewed. The risks and benefits of the procedure and the sedation options and risks were discussed with the patient. All questions were answered, and informed consent was obtained. Prior Anticoagulants: The patient has taken no anticoagulant or antiplatelet agents except for NSAID medication. ASA Grade Assessment: III - A patient with severe systemic disease. After reviewing the risks and benefits, the patient was deemed in satisfactory condition to undergo the procedure. After I obtained informed consent, the scope was passed under direct vision. Throughout the procedure, the patient's blood pressure, pulse, and oxygen saturations were monitored continuously. The pediatric colonoscope was introduced through the anus and advanced to the cecum, identified by the appendiceal orifice, IC valve and transillumination. The colonoscopy was somewhat difficult due to a redundant colon. The patient tolerated the procedure well. The quality of the bowel preparation was good. The ileocecal valve, appendiceal orifice, and rectum were photographed. The entire colon was examined. FINDING Findings: Multiple medium-mouthed diverticula were found in the sigmoid colon. There was no evidence of diverticular bleeding. The colon (entire examined portion) was moderately tortuous. Random biopsies were obtained with cold forceps for histology randomly in the entire colon. The exam was otherwise without abnormality on direct and retroflexion views. SEDATION Moderate Sedation: See the other procedure note for documentation of moderate sedation with intraservice time. EBL Estimated Blood Loss: Estimated blood loss: none. IMPRESS Impression: - Mild diverticulosis in the sigmoid colon. There was no evidence of diverticular bleeding. - Tortuous colon. - The examination was otherwise normal on direct and retroflexion views. - Random biopsies were obtained in the entire colon. ENDORECOMMENDATION Recommendation: - Resume previous diet. - Continue present medications. - Await pathology results. - Repeat colonoscopy date to be determined after pending pathology results are reviewed for surveillance based on pathology results. - Return to primary care physician as previously scheduled. CPT_CODES Procedure Code(s): --- Professional --- 75863, Colonoscopy, flexible; with biopsy, single or multiple ICD_CODES Diagnosis Code(s): --- Professional --- K57.30, Diverticulosis of large intestine without perforation or abscess without bleeding Q43.8, Other specified congenital malformations of intestine CODINGSTMT CPT copyright 2020 [employer]. All rights reserved. The codes documented in this report are preliminary and upon him coder review may be revised to meet current compliance requirements. ATTDRPART Attending Participation: I personally performed the entire procedure. SIGNATURENAME Katy San MD SIGNATUREDATE 09/05/2021 9:25:49 AM SIGNATUREONFILEIND This report has been signed electronically. NUMADDENDA Number of Addenda: 0 INITIATEDON Note Initiated On: 09/05/2021 8:54 AM WSCOPETIME Scope Withdrawal Time 0 hours 6 minutes 32 seconds TOTPROCTIME Total Procedure Duration Time 0 hours 16 min (more content not included)... Normal [facility] No Panel Informationon 09-05 [facility] Work Phone: [email or web address]?={[email or web address] [id number]} [facility] Work Phone: [email or web address]?={[email or web address] [facility] Work Phone: [facility] Work Phone: [facility] Surgical Pathology Depar tmenton 09-05-2021 [facility] Surgical Pathology Department Name AURELIO BHAKTA Pathologist: HELGA LA MD Date of Procedure: 09/05/2021 Date Received: 09/05/2021 Date Reported 09/09/2021 Submitting Physician: KATY SAN M.D. Location: [facility] Other External # FINAL DIAGNOSIS A. SPECIMEN LABELED GASTRIC ULCER, BIOPSY: --OXYNTIC MUCOSA DEMONSTRATING FOCAL HISTOPATHOLOGICAL FEATURES SUGGESTIVE OF HEALED EROSION/ULCER, NO HELICOBACTER IDENTIFIED. B. ESOPHAGUS, BIOPSIES: --SQUAMOUS EPITHELIUM, NO SIGNIFICANT HISTOPATHOLOGICAL ABNORMALITIES. C. GASTRIC ANTRUM, BIOPSY: --REACTIVE GASTROPATHY, NO HELICOBACTER IDENTIFIED. D. DISTAL ESOPHAGUS, BIOPSY: --SQUAMOCOLUMNAR JUNCTIONAL MUCOSA DEMONSTRATING FOCAL HISTOPATHOLOGICAL FEATURES CONSISTENT WITH PRIOR MUCOSAL INJURY, NO ACUTE INFLAMMATION OR INTESTINAL METAPLASIA IDENTIFIED. E. COLON, RANDOM BIOPSIES: --COLONIC MUCOSA, NO SIGNIFICANT HISTOPATHOLOGICAL ABNORMALITIES. Electronically Signed Out By HELGA LA MD/TRIXIE By the signature on this report, the individual or group listed as making the Final Interpretation/Diagnosis certifies that they have reviewed this case. Diagnostic interpretation performed at [facility] [address] [facility] [address] Clinical History: Physician Contact Number: [id number] Fixative (A): Formalin Fixative (B): Formalin Fixative (C): Formalin Fixative (D): Formalin Fixative (E): Formalin Clinical Diagnosis History GERD , POLYP OF COLON Specimens Submitted As: A: GASTRIC ULCER BX B: ESOPHAGUS BX C: ANTRAL BX D: DISTAL ESOPHAGUS BX E: RANDOM COLON BX Gross Description: A: Received in formalin, labeled with the patient's name and hospital number and gastric ulcer BX, is a fragment of garay, soft tissue measuring 0.4 x 0.2 x 0.2 cm. The specimen is submitted in toto in one cassette. SBS B: Received in formalin, labeled with the patient's name and hospital number and esophagus BX, are multiple fragments of garay, soft tissue aggregating to 0.9 x 0.2 x 0.1 cm. The specimen is submitted in toto in one cassette. SBS C: Received in formalin, labeled with the patient's name and hospital number and antral BX, are 2 fragments of garay, soft tissue aggregating to 0.6 x 0.3 x 0.2 cm. The specimen is submitted in toto in one cassette. SBS D: Received in formalin, labeled with the patient's name and hospital number and distal esophagus BX, are multiple fragments of garay, soft tissue aggregating to 0.8 x 0.2 x 0.2 cm. The specimen is submitted in toto in one cassette. SBS E: Received in formalin, labeled with the patient's name and hospital number and random colon BX, are multiple fragments of garay, soft tissue aggregating to 1.8 x 0.3 x 0.2 cm. The specimen is submitted in toto in one cassette. SBS sbs/09/06/2021 [facility] Department of Pathology [id number] Normal [facility] Comment on above: Performed By: #### C #### [id number] [place] [address] Upper GI endoscopyon 022 Upper GI endoscopy PATIENTNAME Patient Name: Aurelio Bhakta EXAMDATE Procedure Date: 09/05/2021 8:27 AM PATIENTID PATIENTACCOUNTNUM PATIENTDOB Date of : 1960 ADMITTYPE Admit Type: Outpatient PATIENTROOM Site: [facility] Proc RM 1 ETHNICITY Ethnicity: Not or RACE Race: White PROVDR Attending MD: Katy San MD ENDOPROCEDURENAME Procedure: Upper GI endoscopy INDICATION Indications: Follow-up of gastro-esophageal reflux disease PRIMARYPROVIDER Providers: Katy San MD (Doctor), Karyna Ravi RN (Nurse), Kyung Jimenez RN (Nurse) EDREFPROVIDER Referring: Katy San MD CURRENT_MEDS Medicines: Midazolam 7.5 mg IV, Meperidine 50 mg IV, (medications documented represent total dosages for multiple procedures) COMPLIC Complications: No immediate complications. ENDOPROCEDURETEXT Procedure: Pre-Anesthesia Assessment: - Prior to the procedure, a History and Physical was performed, and patient medications and allergies were reviewed. The patient's tolerance of previous anesthesia was also reviewed. The risks and benefits of the procedure and the sedation options and risks were discussed with the patient. All questions were answered, and informed consent was obtained. Prior Anticoagulants: The patient has taken no anticoagulant or antiplatelet agents except for NSAID medication. ASA Grade Assessment: III - A patient with severe systemic disease. After reviewing the risks and benefits, the patient was deemed in satisfactory condition to undergo the procedure. After obtaining informed consent, the endoscope was passed under direct vision. Throughout the procedure, the patient's blood pressure, pulse, and oxygen saturations were monitored continuously. The endoscope was introduced through the mouth, and advanced to the third part of duodenum. The upper GI endoscopy was accomplished without difficulty. The patient tolerated the procedure well. FINDING Findings: Tongues of salmon-colored mucosa were present. Biopsies were taken with a cold forceps for histology. A small hiatal hernia was present. One non-bleeding superficial gastric ulcer with no stigmata of bleeding was found in the cardia( at hiatal hernia area. Biopsies were taken with a cold forceps for histology. Patchy mild inflammation characterized by erythema and friability was found in the gastric antrum. Biopsies were taken with a cold forceps for histology. The examined duodenum was normal. Random biopsies were obtained with cold forceps for histology randomly in the entire esophagus. SEDATION Moderate Sedation: Moderate (conscious) sedation was administered by the endoscopy nurse and supervised by the endoscopist. The following parameters were monitored: oxygen saturation, heart rate, blood pressure, and response to care. Total physician intraservice time was 15 minutes. EBL Estimated Blood Loss: Estimated blood loss: none. Estimated blood loss: none. IMPRESS Impression: - [place]-colored mucosa suspicious for Ramirez's esophagus. Biopsied. - Small hiatal hernia. - Non-bleeding gastric ulcer with no stigmata of bleeding. Biopsied. - Chronic gastritis. Biopsied. - Normal examined duodenum. ENDORECOMMENDATION Recommendation: - Patient has a contact number available for emergencies. The signs and symptoms of potential delayed complications were discussed with the patient. Return to normal activities tomorrow. Written discharge instructions were provided to the patient. - Resume previous diet. - Continue present medications. - No aspirin, ibuprofen, naproxen, or other non-steroidal anti-inflammatory drugs. - Await pathology results. - Return to primary care physician as previously scheduled. CPT_CODES Procedure Code(s): --- Professional --- 86311, Esophagogastroduodenoscopy, flexible, transoral; with biopsy, single or multiple G0500, Moderate sedation services provided by the same physician or other qualified health family day care provider performing a gastrointestinal endoscopic service that sedation supports, requiring the presence of an independent trained observer to assist in the monitoring of the patient's level of consciousness and physiological status; initial 15 minutes of intra-service time; patient age 5 years or older (additional time may be reported with 68005, as appropriate) ICD_CODES Diagnosis Code(s): --- Professional --- K22.89, Other specified disease of esophagus K44.9, Diaphragmatic hernia without obstruction or gangrene K25.9, Gastric ulcer, unspecified as acute or chronic, without hemorrhage or perforation K29.50, Unspecified chronic gastritis without bleeding K21.9, Gastro-esophageal reflux disease without esophagitis [facility] CPT copyright 2020 [place] [employer]. All rights reserved. The codes documented in thi (more content not included)... Normal [facility] CBC AND DIFFERENTIALon 08-19 Basophils (Bld) [#/Vol] 0.20 10*3/uL High 0.00 - 0.10 [facility] Comment on above: Performed By: #### C MP #### [address] [address] Basophils/100 WBC (Bld) 1.4 % Normal 0.0 - 2.0 [facility] Comment on above: Performed By: #### C MP #### [address] [address] Eosinophils (Bld) [#/Vol] 0.40 10*3/uL Normal 0.00 - 0.70 [facility] Comment on above: Performed By: #### C MP #### [address] [address] Eosinophils/100 WBC (Bld) 2.9 % Normal 0.0 - 6.0 [facility] Comment on above: Performed By: #### C MP #### [address] [address] Erythrocyte distribution width (RBC) [Ratio] 14.6 % High 11.5 - 14.5 [facility] Comment on above: Performed By: #### C MP #### [address] [address] Hematocrit (Bld) [Volume fraction] 37.6 % Normal 36.0 - 46.0 [facility] Comment on above: Performed By: #### C MP #### [address] [address] Hemoglobin (Bld) [Mass/Vol] 12.6 g/dL Normal 12.0 - 16.0 [facility] Comment on above: Performed By: #### C MP #### [address] [address] Lymphocytes (Bld) [#/Vol] 2.40 10*3/uL Normal 1.20 - 4.80 [facility] Comment on above: Performed By: #### C MP #### [address] [address] Lymphocytes/100 WBC (Bld) 19.8 % Normal 13.0 - 44.0 [facility] Comment on above: Performed By: #### C MP #### [address] [address] MCHC (RBC) [Mass/Vol] 33.6 g/dL Normal 32.0 - 36.0 [facility] Comment on above: Performed By: #### C MP #### [address] [address] MCV (RBC) [Entitic vol] 90 fL Normal 80 - 100 [facility] Comment on above: Performed By: #### C MP #### [address] [address] Monocytes (Bld) [#/Vol] 0.70 10*3/uL Normal 0.10 - 1.00 [facility] Comment on above: Performed By: #### C MP #### [address] [address] Monocytes/100 WBC (Bld) 6.1 % Normal 2.0 - 10.0 [facility] Comment on above: Performed By: #### C MP #### [address] [address] Neutrophils (Bld) [#/Vol] 8.50 10*3/uL High 1.20 - 7.70 [facility] Comment on above: Result Comment: Perc ent differential counts (%) should be interpreted in the context of the absolute cell counts (cells/L). Performed By: #### C MP #### [address] [address] Neutrophils/100 WBC (Bld) 69.8 % Normal 40.0 - 80.0 [facility] Comment on above: Performed By: #### C MP #### [address] [address] NUCLEATED RBC 0.2 /100 WBC Normal [facility] Comment on above: Performed By: #### C MP #### [address] [address] Platelets (Bld) [#/Vol] 360 10*3/uL Normal 150 - 450 [facility] Comment on above: Performed By: #### C MP #### [address] [address] RBC 4.16 x10E12/L Normal 4.00 - 5.20 [facility] Comment on above: Performed By: #### C MP #### [address] [address] WBC (Bld) [#/Vol] 12.1 10*3/uL High 4.4 - 11.3 [facility] Comment on above: Performed By: #### C MP #### [address] [address] COMPREHENSIVE PANELon 2021 Albumin [Mass/Vol] 4.4 g/dL Normal 3.4 - 5.0 [facility] Comment on above: Performed By: #### C MP #### [address] [address] ALP [Catalytic activity/Vol] 68 U/L Normal 33 - 136 [facility] Comment on above: Performed By: #### C MP #### [address] [address] ALT [Catalytic activity/Vol] 33 U/L Normal 7 - 45 [facility] Comment on above: Result Comment: Nova ents treated with Sulfasalazine may generate falsely decreased results for ALT. Performed By: #### C MP #### [address] [address] Anion gap [Moles/Vol] 11 mmol/L Normal 10 - 20 [facility] Comment on above: Performed By: #### C MP #### [address] [address] AST [Catalytic activity/Vol] 25 U/L Normal 9 - 39 [facility] Comment on above: Performed By: #### C MP #### [address] [address] Bilirubin [Mass/Vol] 0.3 mg/dL Normal 0.0 - 1.2 [facility] Comment on above: Performed By: #### C MP #### [address] [address] Calcium [Mass/Vol] 9.1 mg/dL Normal 8.6 - 10.3 [facility] Comment on above: Performed By: #### C MP #### [address] [address] Chloride [Moles/Vol] 100 mmol/L Normal 98 - 107 [facility] Comment on above: Performed By: #### C MP #### [address] [address] Creatinine [Mass/Vol] 0.85 mg/dL Normal 0.50 - 1.05 [facility] Comment on above: Performed By: #### C MP #### [address] [address] GFR/1.73 sq M.predicted among non-blacks MDRD (S/P/Bld) [Vol rate/Area] 77 mL/min/{1.73_m2} Normal >90 [facility] Comment on above: Result Comment: CALC ULATIONS OF ESTIMATED GFR ARE PERFORMED USING THE 2020 CKD-EPI STUDY REFIT EQUATION WITHOUT THE RACE VARIABLE FOR THE IDMS-TRACEABLE CREATININE METHODS. https://jasn.asnjournals.org/content/early//ASN.17023456 88 Performed By: #### C MP #### [address] [address] Glucose [Mass/Vol] 99 mg/dL Normal 74 - 99 [facility] Comment on above: Performed By: #### C MP #### [address] [address] HCO3 (Bld) [Moles/Vol] 30 mmol/L Normal 21 - 32 [facility] Comment on above: Performed By: #### C MP #### [address] [address] Potassium [Moles/Vol] 4.3 mmol/L Normal 3.5 - 5.3 [facility] Comment on above: Performed By: #### C MP #### [address] [address] Protein [Mass/Vol] 7.5 g/dL Normal 6.4 - 8.2 [facility] Comment on above: Performed By: #### C MP #### [address] [address] Sodium [Moles/Vol] 137 mmol/L Normal 136 - 145 [facility] Comment on above: Performed By: #### C MP #### [address] [address] Urea nitrogen [Mass/Vol] 24 mg/dL High 6 - 23 [facility] Comment on above: Performed By: #### C MP #### [address] [address] Complete Blood Count + Diffe rentialon 08-19-2021 Basophils/100 WBC (Bld) 1.4 % 0.0 - 2.0 [facility] Work Phone: Erythrocyte distribution width (RBC) [Ratio] 14.6 % above high threshold See Below [facility] Work Phone: Comment on above: Reference Range: 11. 5 - 14.5 Hematocrit (Bld) [Volume fraction] 37.6 % See Below [facility] Work Phone: Comment on above: Reference Range: 36. 0 - 46.0 Hemoglobin (Bld) [Mass/Vol] 12.6 g/dL See Below [facility] Work Phone: Comment on above: Reference Range: 12. 0 - 16.0 Lymphocytes/100 WBC (Bld) 19.8 % See Below [facility] Work Phone: Comment on above: Reference Range: 13. 0 - 44.0 MCHC (RBC) [Mass/Vol] 33.6 g/dL See Below [facility] Work Phone: Comment on above: Reference Range: 32. 0 - 36.0 MCV (RBC) [Entitic vol] 90 fL 80 - 100 [facility] Work Phone: Monocytes/100 WBC (Bld) 6.1 % 2.0 - 10.0 [facility] Work Phone: Neutrophils/100 WBC (Bld) 69.8 % See Below [facility] Work Phone: Comment on above: Reference Range: 40. 0 - 80.0 Platelets (Bld) [#/Vol] 360 10*3/uL 150 - 450 [facility] Work Phone: RBC (Bld) [#/Vol] 4.16 {x10E12/L} See Below [facility] Work Phone: Comment on above: Reference Range: 4.0 0 - 5.20 WBC (Bld) [#/Vol] 12.1 10*3/uL above high threshold 4.4 - 11.3 [facility] Work Phone: Complete Blood Count + Differential 0.20 {x10E9/L} above high threshold See Below [facility] Work Phone: Comment on above: Reference Range: 0.0 0 - 0.10 Complete Blood Count + Differential 0.40 {x10E9/L} See Below [facility] Work Phone: Comment on above: Reference Range: 0.0 0 - 0.70 Complete Blood Count + Differential 0.70 {x10E9/L} See Below [facility] Work Phone: Comment on above: Reference Range: 0.1 0 - 1.00 Complete Blood Count + Differential 2.40 {x10E9/L} See Below [facility] Work Phone: Comment on above: Reference Range: 1.2 0 - 4.80 Complete Blood Count + Differential 8.50 {x10E9/L} above high threshold See Below [facility] Work Phone: Comment on above: Reference Range: 1.2 0 - 7.70 Percent differential counts (%) should be interpreted in the context of the absolute cell counts (cells/L). Complete Blood Count + Differential 2.9 % 0.0 - 6.0 [facility] Work Phone: Complete Blood Count + Differential 0.2 {/100_WBC} [facility] Work Phone: HEMOGLOBIN A1Con 08-19-2021 Glucose [Mass/Vol] 137 mg/dL Normal [facility] Comment on above: Performed By: #### C BCDF #### [address] [address] HbA1c (Bld) [Mass fraction] 6.4 % Abnormal [facility] Comment on above: Result Comment: Diag nosis of Diabetes-Adults Non-Diabetic: < or = 5.6% Increased risk for developing diabetes: 5.7-6.4% Diagnostic of diabetes: > or = 6.5% . Monitoring of Diabetes Age (y) Therapeutic Goal (%) Adults: >18 <7.0 Pediatrics: 13-18 <7.5 7-12 <8.0 0- 6 7.5-8.5 [place] [employer]. Diabetes Care 33(S1), Apr 2009. Performed By: #### C BCDF #### [address] [address] Hemoglobin A1Con 08-19-2021 Glucose [Mass/Vol] 137 mg/dL [facility] Internal [facility] Work Phone: HbA1c (Bld) [Mass fraction] 6.4 % Abnormal [facility] Work Phone: Comment on above: Diagnosis of Diabete s-Adults Non-Diabetic: < or = 5.6% Increased risk for developing diabetes: 5.7-6.4% Diagnostic of diabetes: > or = 6.5%. Monitoring of Diabetes Age (y) Therapeutic Goal (%) Adults: >18 <7.0 Pediatrics: 13-18 <7.5 7-12 <8.0 0- 6 7.5-8.5 [place] [employer]. Diabetes Care 33(S1), Apr 2009. LIPID PANEL (CORONARY RISK 2 )on 08-19-2021 Cholesterol [Mass/Vol] 180 mg/dL Normal 0 - 199 [facility] Comment on above: Result Comment: . AGE DESIRABLE BORDERLINE HIGH HIGH 0-19 Y 0 - 169 170 - 199 >/= 200 20-24 Y 0 - 189 190 - 224 >/= 225 >24 Y 0 - 199 200 - 239 >/= 240 All ranges are based on fasting samples. Specific therapeutic targets will vary based on patient-specific cardiac risk. . Pediatric guidelines reference:Pediatrics 2011, 128(S5). Adult guidelines reference: NCEP ATPIII Guidelines, YARIEL 2001, 258:2486-97 . Venipuncture immediately after or during the administration of Metamizole may lead to falsely low results. Testing should be performed immediately prior to Metamizole dosing. Performed By: #### C MP #### [address] [address] Cholesterol in HDL [Mass/Vol] 54.0 mg/dL Normal [facility] Comment on above: Result Comment: . AGE VERY LOW LOW NORMAL HIGH 0-19 Y < 35 < 40 40-45 ---- 20-24 Y ---- < 40 >45 ---- >24 Y ---- < 40 40-60 >60 . Performed By: #### C MP #### [address] [address] Cholesterol in LDL [Mass/Vol] 96 mg/dL Normal 0 - 99 [facility] Comment on above: Result Comment: . NEAR BORD AGE DESIRABLE OPTIMAL HIGH HIGH VERY HIGH 0-19 Y 0 - 109 --- 110-129 >/= 130 ---- 20-24 Y 0 - 119 --- 120-159 >/= 160 ---- >24 Y 0 - 99 100-129 130-159 160-189 >/=190 . Performed By: #### C MP #### [address] [address] Cholesterol in VLDL [Mass/Vol] 30 mg/dL Normal 0 - 40 [facility] Comment on above: Performed By: #### C MP #### [address] [address] Cholesterol.total/C holesterol in HDL [Mass ratio] 3.3 {ratio} Normal [facility] Comment on above: Result Comment: REF VALUES DESIRABLE < 3.4 HIGH RISK > 5.0 Performed By: #### C MP #### [address] [address] Triglyceride [Mass/Vol] 148 mg/dL Normal 0 - 149 [facility] Comment on above: Result Comment: . AGE DESIRABLE BORDERLINE HIGH HIGH VERY HIGH 0 D-90 D 19 - 174 ---- ---- ---- 91 D- 9 Y 0 - 74 75 - 99 >/= 100 ---- 10-19 Y 0 - 89 90 - 129 >/= 130 ---- 20-24 Y 0 - 114 115 - 149 >/= 150 ---- >24 Y 0 - 149 150 - 199 200- 499 >/= 500 . Venipuncture immediately after or during the administration of Metamizole may lead to falsely low results. Testing should be performed immediately prior to Metamizole dosing. Performed By: #### C MP #### [address] [address] Laboratory - Chemistry and C hemistry - challengeon 08-19-2021 Albumin BCP dye [Mass/Vol] 4.4 g/dL 3.4 - 5.0 [facility] Work Phone: ALP [Catalytic activity/Vol] 68 U/L 33 - 136 [facility] Work Phone: ALT With P-5'-P [Catalytic activity/Vol] 33 U/L 7 - 45 [facility] Work Phone: Comment on above: Patients treated wit h Sulfasalazine may generate falsely decreased results for ALT. Anion gap [Moles/Vol] 11 mmol/L 10 - 20 [facility] Work Phone: AST With P-5'-P [Catalytic activity/Vol] 25 U/L 9 - 39 [facility] Work Phone: Bilirubin [Mass/Vol] 0.3 mg/dL 0.0 - 1.2 [facility] Work Phone: Calcium [Mass/Vol] 9.1 mg/dL 8.6 - 10.3 [facility] Work Phone: Chloride [Moles/Vol] 100 mmol/L 98 - 107 [facility] Work Phone: CO2 [Moles/Vol] 30 mmol/L 21 - 32 [facility] Work Phone: Creatinine [Mass/Vol] 0.85 mg/dL See Below [facility] Work Phone: Comment on above: Reference Range: 0.5 0 - 1.05 Glucose [Mass/Vol] 99 mg/dL 74 - 99 [facility] Work Phone: Potassium [Moles/Vol] 4.3 mmol/L 3.5 - 5.3 [facility] Work Phone: Protein [Mass/Vol] 7.5 g/dL 6.4 - 8.2 [facility] Work Phone: Sodium [Moles/Vol] 137 mmol/L 136 - 145 [facility] Work Phone: TSH Qn 3.62 m[IU]/L See Below [facility] Work Phone: Comment on above: Reference Range: 0.4 4 - 3.98 TSH testing is performed using different testing methodology at [facility] than at other [facility]. Direct result comparisons should only be made within the same method. Urea nitrogen [Mass/Vol] 24 mg/dL above high threshold 6 - 23 [facility] Work Phone: Lipid Panelon 08-19-2021 Cholesterol [Mass/Vol] 180 mg/dL 0 - 199 [facility] Work Phone: Comment on above: . AGE DESIRABLE BORD JESUS HIGH HIGH 0-19 Y 0 - 169 170 - 199 >/= 200 20-24 Y 0 - 189 190 - 224 >/= 225 >24 Y 0 - 199 200 - 239 >/= 240 All ranges are based on fasting samples. Specific therapeutic targets will vary based on patient-specific cardiac risk.. Pediatric guidelines reference:Pediatrics 2011, 128(S5). Adult guidelines reference: NCEP ATPIII Guidelines, YARIEL 2001, 258:2476-97. Venipuncture immediately after or during the administration of Metamizole may lead to falsely low results. Testing should be performed immediately prior to Metamizole dosing. Cholesterol in HDL [Mass/Vol] 54.0 mg/dL [facility] Work Phone: Comment on above: . AGE VERY LOW LOW N ORMAL HIGH 0-19 Y < 35 < 40 40-45 ---- 20- 24 Y ---- < 40 >45 ---- >24 Y ---- < 40 40-60 >60. Cholesterol in LDL [Mass/Vol] 96 mg/dL 0 - 99 [facility] Work Phone: Comment on above: . NEAR BORD AGE JANIE RABLE OPTIMAL HIGH HIGH VERY HIGH 0-19 Y 0 - 109 --- 110-129 >/= 130 ---- 20-24 Y 0 - 119 --- 120-159 >/= 160 ---- >24 Y 0 - 99 100-129 130-159 160-189 >/=190. Cholesterol.total/C holesterol in HDL [Mass ratio] 3.3 {ratio} [facility] Work Phone: Comment on above: REF VALUESDESIRABLE < 3.4HIGH RISK > 5.0 Triglyceride [Mass/Vol] 148 mg/dL 0 - 149 [facility] Work Phone: Comment on above: . AGE DESIRABLE BORD JESUS HIGH HIGH VERY HIGH 0 D-90 D 19 - 174 ---- ---- ----91 D- 9 Y 0 - 74 75 - 99 >/= 100 ---- 10-19 Y 0 - 89 90 - 129 >/= 130 ---- 20-24 Y 0 - 114 115 - 149 >/= 150 ---- >24 Y 0 - 149 150 - 199 200- 499 >/= 500. Venipuncture immediately after or during the administration of Metamizole may lead to falsely low results. Testing should be performed immediately prior to Metamizole dosing. Lipid Panel 30 mg/dL 0 - 40 [facility] Work Phone: No Panel Informationon 08-19 77 {mL/min/1.73m2} >90 [facility] Work Phone: Comment on above: CALCULATIONS OF BELA MATED GFR ARE PERFORMED USING THE 2020 CKD-EPI STUDY REFIT EQUATION WITHOUT THE RACE VARIABLE FOR THE IDMS-TRACEABLE CREATININE METHODS.https://jasn.asnjournals.org/content//ASN. 0403906834 TSH WITH REFLEX TO FREE T4 I F ABNORMALon 08-19-2021 TSH Qn 3.62 m[IU]/L Normal 0.44 - 3.98 [facility] Comment on above: Result Comment: TSH testing is performed using different testing methodology at [facility] than at other [facility]. Direct result comparisons should only be made within the same method. Performed By: #### T HYDS #### [facility] [address] [place] [address] Office Visit (Internal Medic ine)on 08-08-2021 Follow-up visit Diagnoses/Problems Assessed Denies alcohol consumption (V49.89) (Z78.9) Depression, major, single episode, moderate (296.22) (F32.1) Anxiety (300.00) (F41.9) Hyperlipemia (272.4) (E78.5) Hypertension (401.9) (I10) Generalized osteoarthritis (715.00) (M15.9) GERD (gastroesophageal reflux disease) (530.81) (K21.9) Establishing care with new doctor, encounter for (V65.8) (Z76.89) Colon polyp (211.3) (K63.5) Abdominal bloating (787.3) (R14.0) 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) Epigastric abdominal tenderness (789.66) (R10.816) BMI 31.0-31.9,adult (V85.31) (Z68.31) Orders Abdominal bloating Start: Magnesium Citrate 1.745 GM/30ML Oral Solution; USE DIRECTED Rx By: Fanny Olivares; Dispense: 0 Days ; #:1 X 296 ML Bottle; Refill: 0;For: Abdominal bloating; YELITZA = N; Verified Transmission to [place] [address]; Last Updated By: Ani Gama; 08/08/2021 3:46:36 PM Start: Polyethylene Glycol 3350 17 GM/SCOOP Oral Powder (MiraLax); MIX 238 GM Once As Directed Mix with 64 ounces of clear liquids Rx By: Fanny Olivares; Dispense: 0 Days ; #:1 X 238 GM Bottle; Refill: 0;For: Abdominal bloating; YELITZA = N; Verified Transmission to [place] [address]; Last Updated By: Ani Gama; 08/08/2021 3:46:38 PM Start: Probiotic Acidophilus Oral Capsule; Take 1 capsule twice daily Rx By: Fanny Olivares; Dispense: 90 Days ; #:180 Capsule; Refill: 3;For: Abdominal bloating; YELITZA = N; Verified Transmission to [place] [address]; Last Updated By: Ani Gama; 08/08/2021 2:33:56 PM Anxiety Start: hydrOXYzine HCl - 25 MG Oral Tablet; TAKE 1-2 TABLETS QID PRN ANXIETY Rx By: Fanny Olivares; Dispense: 0 Days ; #:120 Tablet; Refill: 2;For: Anxiety; YELITZA = N; Verified Transmission to [place] [address]; Last Updated By: Ani Gama; 08/08/2021 2:34:01 PM Asthma with COPD Start: Montelukast Sodium 10 MG Oral Tablet (Singulair); TAKE 1 TABLET AT BEDTIME Rx By: Fanny Olivares; Dispense: 90 Days ; #:90 Tablet; Refill: 3;For: Asthma with COPD; YELITZA = N; Verified Transmission to [place] [address]; Last Updated By: Ani Gama; 08/08/2021 3:46:38 PM Start: Symbicort 80-4.5 MCG/ACT Inhalation Aerosol (Budesonide-Formoterol Fumarate); INHALE 2 PUFFS TWICE DAILY. RINSE MOUTH AFTER USE Rx By: Fanny Olivares; Dispense: 0 Days ; #:1 X 10.2 GM Inhaler; Refill: 1;For: Asthma with COPD; YELITZA = N; [facility] [facility]; Last Updated By: Florentin Sam; 08/08/2021 2:57:36 PM Colon polyp Colonoscopy Diagnostic; Status:Hold For - Scheduling; Requested for:08Aug2021; Perform:[facility]; Due:[id number]; Last Updated By:Florentin Sam; 08/08/2021 2:54:44 PM;Ordered; For:Colon polyp; Ordered By:Fanny Olivares; TAKE 6 DUCOLAX INSTEAD OF 4. 2 THURSDAY NIGHT 2 MORNING AND 2 WE NIGHT. MIRALAX TOLERATED. MAG CITRATE AT MIDNIGHT Patient competent to provide consent? : Yes-pt mentally competent to provide consent Epigastric abdominal tenderness Start: Dulcolax 5 MG Oral Tablet Delayed Release; Take as directed Rx By: Fanny Olivares; Dispense: 0 Days ; #:6 Tablet; Refill: 0;For: Epigastric abdominal tenderness; YELITZA = N; Verified Transmission to [employer] [facility]; Last Updated By: [employer]; 08/08/2021 3:46:35 PM Start: Sucralfate 1 GM Oral Tablet; TAKE 1 TABLET 4 TIMES DAILY, BEFORE MEALS AND AT BEDTIME Rx By: Fanny Olivares; Dispense: 30 Days ; #:120 Tablet; Refill: 0;For: Epigastric abdominal tenderness; YELITZA = N; Verified Transmission to [facility] [facility] [employer] [id number]; Last Updated By: City Notes; 08/08/2021 2:34:01 PM Epigastric abdominal tenderness, GERD (gastroesophageal reflux disease) Endoscopy - Upper GI; Status:Hold For - Scheduling; Requested for:08Aug2021; Perform:[facility]; Due:[id number];Ordered; For:Epigastric abdominal tenderness, GERD (gastroesophageal reflux disease); Ordered By:Fanny Olivares; Patient competent to provide consent? : Yes-pt mentally competent to provide consent GERD (gastroesophageal reflux disease) Start: Esomeprazole Magnesium 40 MG Oral Capsule Delayed Release; TAKE 1 CAPSULE ONCE DAILY 30-60 MINUTES BEFORE BREAKFAST Rx By: Fanny Olivares; Dispense: 90 Days ; #:90 Capsule; Refill: 3;For: GERD (gastroesophageal reflux disease); YELITZA = N; [facility]; Last Updated By: Ani Gama; 08/08/2021 2:33:55 PM SocHx: Current every day smoker Tobacco Use Screening; Status:Complete; Done: 08Aug2021 Perform:Not Applicable;Ordered; For:SocHx: Current every day smoker; Ordered By:May Viera; Patient Discussion/Summary F/U AFTER TESTING WITH FASTING LABS COLON AND EGD [facility] RECORD RELEASE- 12 MONTHS OF LABS, ANY TESTING, COLON, MAMMO DR. PALLAVI ALEJANDRE Provider Impressions WE DISCUSSED MOST COMMON SIDE EFFECTS OF PRESCRIBED MEDICATIONS. INDICATIONS, RISK, COMPLICATIONS, AND ALTERNATIVES OF MEDICATION/THERAPEUTICS WERE EXPLAINED AND DISCUSSED. PLEASE MONITOR CLOSELY FO (more content not included)... Normal [employer] Tobacco Screening.on 022 Adult depression screening assessment Yes [facility] Work Phone: Fall risk assessment a) No falls within the last year [facility] Work Phone: Tobacco use status [facility] a) Yes [facility] Work Phone: Tobacco Screening. Yes [facility] Work Phone: Tobacco Screening. 2-More than half the days [facility] Work Phone: Tobacco Screening. 3-Nearly every day [facility] Work Phone: Tobacco Screening. 0-Not at all [facility] Work Phone: Tobacco Screening. Somewhat Difficult [facility] Work Phone: Large Joint Arthro/Inj: R kn ee joint [facility] Vital Signs Date Time Vital Sign Value Performing Clinician Facility 01-29-2024 10:06-0400 Body height 163.9 cm Pul Wstr Work Phone: [facility] 01-29-2024 10:06-0400 Body mass index (BMI) [Ratio] 32.44 kg/m2 Pul [facility]str Work Phone: [facility] 01-29-2024 10:06-0400 Body weight 87.09 kg Pulm Wstr Work Phone: [facility] 01-29-2024 10:06-0400 Heart rate 86 /min Pulm [facility]str Work Phone: [facility] 01-29-2024 10:06-0400 Respiratory rate 15 /min Pulm Wstr Work Phone: [facility] 01-29-2024 10:06-0400 SaO2% (BldA) [Mass fraction] 92 % [facility]str Work Phone: [facility] 01-15-2024 10:03-0400 Body height 163.8 cm Almas Cordero APRN.FIELD MARKETING ASSOCIATE Work Phone: [facility] 01-15-2024 10:03-0400 Body mass index (BMI) [Ratio] 31.6 kg/m2 Almas Cordero APRN.FIELD MARKETING ASSOCIATE Work Phone: [facility] 01-15-2024 10:03-0400 Body temperature 96.91 [degF] Almas Cordero APRN.FIELD MARKETING ASSOCIATE Work Phone: [facility] 01-15-2024 10:03-0400 Body weight 84.82 kg Almas Cordero APRN.FIELD MARKETING ASSOCIATE Work Phone: [facility] 01-15-2024 10:03-0400 Diastolic blood pressure 62 mm[Hg] Almas Cordero APRN.FIELD MARKETING ASSOCIATE Work Phone: [facility] 01-15-2024 10:03-0400 Heart rate 71 /min Almas Cordero APRN.FIELD MARKETING ASSOCIATE Work Phone: [facility] 01-15-2024 10:03-0400 Respiratory rate 20 /min Almas Cordero APRN.FIELD MARKETING ASSOCIATE Work Phone: [facility] 01-15-2024 10:03-0400 SaO2% (BldA) [Mass fraction] 96 % Almas Cordero APRN.FIELD MARKETING ASSOCIATE Work Phone: [facility] 01-15-2024 10:03-0400 Systolic blood pressure 95 mm[Hg] Almas Cordero APRN.FIELD MARKETING ASSOCIATE Work Phone: [facility] 12-03-2023 13:38-0400 Body height 163.8 cm Shruthi Dolan MD Work Phone: [facility] 12-03-2023 13:38-0400 Body mass index (BMI) [Ratio] 32.95 kg/m2 Shruthi Dolan MD Work Phone: [facility] 12-03-2023 13:38-0400 Body temperature 98.2 [degF] Shruthi Dolan MD Work Phone: [facility] 12-03-2023 13:38-0400 Body weight 88.45 kg Shruthi Dolan MD Work Phone: [facility] 12-03-2023 13:38-0400 Diastolic blood pressure 70 mm[Hg] Shruthi Dolan MD Work Phone: [facility] 12-03-2023 13:38-0400 Heart rate 84 /min Shruthi Dolan MD Work Phone: [facility] 12-03-2023 13:38-0400 Respiratory rate 18 /min Shruthi Dolan MD Work Phone: [facility] 12-03-2023 13:38-0400 SaO2% (BldA) [Mass fraction] 93 % Shruthi Dolan MD Work Phone: [facility] 12-03-2023 13:38-0400 Systolic blood pressure 110 mm[Hg] Shruthi Dolan MD Work Phone: [facility] 09-14-2023 13:05-0400 Body mass index (BMI) [Ratio] 31.77 kg/m2 Malinda Schroeder APRN.FIELD MARKETING ASSOCIATE Work Phone: [facility] 09-14-2023 13:05-0400 Body weight 85.28 kg Malinda Schroeder APRN.FIELD MARKETING ASSOCIATE Work Phone: [facility] 08-17-2023 13:17-0400 Body height 163.8 cm Marvel Sam DO Work Phone: [facility] 08-17-2023 13:17-0400 Body mass index (BMI) [Ratio] 31.43 kg/m2 Marvel Sam DO Work Phone: [facility] 08-17-2023 13:17-0400 Body temperature 98.01 [degF] Marvel Sam DO Work Phone: [facility] 08-17-2023 13:17-0400 Body weight 84.37 kg Marvel Sam DO Work Phone: [facility] 08-17-2023 13:17-0400 Diastolic blood pressure 56 mm[Hg] Marvel Sam DO Work Phone: [facility] 08-17-2023 13:17-0400 Heart rate 82 /min Marvel Sam DO Work Phone: [facility] 08-17-2023 13:17-0400 Respiratory rate 18 /min Marvel Sam DO Work Phone: [facility] 08-17-2023 13:17-0400 SaO2% (BldA) [Mass fraction] 96 % Marvel Sam DO Work Phone: [facility] 08-17-2023 13:17-0400 Systolic blood pressure 118 mm[Hg] Marvel Sam DO Work Phone: [facility] 07-28-2023 09:55-0400 Body mass index (BMI) [Ratio] 31.1 kg/m2 Patience Alexandra PA-C Work Phone: [facility] 07-28-2023 09:55-0400 Body weight 83.46 kg Patience Alexandra PA-C Work Phone: [facility] 07-28-2023 09:55-0400 Diastolic blood pressure 66 mm[Hg] Patience Alexandra PA-C Work Phone: [facility] 07-28-2023 09:55-0400 Heart rate 66 /min Patience Alexandra PA-C Work Phone: [facility] 07-28-2023 09:55-0400 Respiratory rate 19 /min Patience Alexandra PA-C Work Phone: [facility] 07-28-2023 09:55-0400 SaO2% (BldA) [Mass fraction] 93 % Patience Alexandra PA-C Work Phone: [facility] 07-28-2023 09:55-0400 Systolic blood pressure 110 mm[Hg] Patience Alexandra PA-C Work Phone: [facility] 06-23-2023 10:11-0400 Body weight 83.73 kg Patience Alexandra PA-C Work Phone: [facility] 06-23-2023 10:11-0400 Diastolic blood pressure 78 mm[Hg] Patience Alexandra PA-C Work Phone: [facility] 06-23-2023 10:11-0400 Heart rate 84 /min Patience Alexandra PA-C Work Phone: [facility] 06-23-2023 10:11-0400 Respiratory rate 19 /min Patience Alexandra PA-C Work Phone: [facility] 06-23-2023 10:11-0400 SaO2% (BldA) [Mass fraction] 94 % Patience Alexandra PA-C Work Phone: [facility] 06-23-2023 10:11-0400 Systolic blood pressure 138 mm[Hg] Patience Alexandra PA-C Work Phone: [facility] 02-24-2023 11:28-0500 Heart rate 82 /min DR PHILLY BELCHER MD [facility] 02-24-2023 11:23-0500 Body temperature 98.06 [degF] DR PHILLY BELCHER MD [facility] 02-24-2023 11:23-0500 Diastolic Blood Pressure Non-Invasive 69 mm[Hg] DR PHILLY BELCHER MD [address] 02-24-2023 11:23-0500 Heart rate 45 /min DR PHILLY BELCHER MD [address] 02-24-2023 11:23-0500 Reason For Taking VItal Signs DR PHILLY BELCHER MD [address] 02-24-2023 11:23-0500 Respiratory rate 16 /min DR PHILLY BELCHER MD [address] 02-24-2023 11:23-0500 Systolic Blood Pressure Non-Invasive 128 mm[Hg] DR PHILLY BELCHER MD [address] [place] [address] 02-24-2023 10:42-0500 Heart rate 81 /min DR PHILLY BELCHER MD [address] [place] [address] 02-24-2023 10:42-0500 Respiratory rate 18 /min DR PHILLY BELCHER MD [address] [place] [address] 02-24-2023 08:19-0500 Heart rate 97 /min DR PHILLY BELCHER MD [address] 02-24-2023 07:34-0500 Body temperature 98.24 [degF] DR PHILLY BELCHER MD [address] 02-24-2023 07:34-0500 Diastolic Blood Pressure Non-Invasive 85 mm[Hg] DR PHILLY BELCHER MD [address] 02-24-2023 07:34-0500 Reason For Taking VItal Signs DR PHILLY BELCHER MD [address] 02-24-2023 07:34-0500 Respiratory rate 17 /min DR PHILLY BELCHER MD [address] 02-24-2023 07:34-0500 Systolic Blood Pressure Non-Invasive 154 mm[Hg] DR PHILLY BELCHER MD [address] 02-24-2023 03:00-0500 systolic 120 mm[Hg] DR PHILLY BELCHER MD [address] 02-23-2023 23:44-0500 diastolic 70 mm[Hg] DR PHILLY BELCHER MD [address] 02-23-2023 18:45-0500 Body temperature 98.6 [degF] DR PHILLY BELCHER MD [address] [place] [address] 02-23-2023 18:45-0500 Heart rate 76 /min DR PHILLY BELCHER MD [address] [place] [address] 02-23-2023 18:43-0500 Heart rate 72 /min DR PHILLY BELCHER MD [address] [place] [address] 02-23-2023 18:41-0500 Body temperature 98.6 [degF] DR PHILLY BELCHER MD [address] [place] [address] 02-23-2023 18:41-0500 Heart rate 77 /min DR PHILLY BELCHER MD [address] [place] [address] 02-23-2023 18:15-0500 Mean blood pressure 79 mm[Hg] DR PHILLY BELCHER MD [address] [place] [address] 02-23-2023 17:54-[address] PHILLY BELCHER MD [address] 02-23-2023 17:54-0500 Body temperature 97.16 [degF] DR PHILLY BELCHER MD [address] 02-23-2023 17:54-0500 Mean blood pressure 85 mm[Hg] DR PHILLY BELCHER MD [address] 02-23-2023 17:17-0500 Mean blood pressure 77 mm[Hg] DR PHILYL BELCHER MD [address] 02-23-2023 15:45-0500 Respiratory Rate - Anes 0 br/min DR PHILLY BELCHER MD [address] 02-23-2023 15:40-0500 Respiratory Rate - Anes 5 br/min DR PHILLY BELCHER MD [address] 02-23-2023 15:35-0500 Respiratory Rate - Anes 12 br/min DR PHILLY BELCHER MD [address] [place] [address] 02-23-2023 13:06-0500 Body height 162.[address] PHILLY BELCHER MD [address] [place] [address] 02-23-2023 13:06-0500 Body weight 82.[address] PHILLY BELCHER MD [address] [place] [address] 02-23-2023 12:50-0500 Heart rate 71 /min DR PHILLY BELCHER MD [address] [place] [address] 02-16-2023 08:42-[address] PHILLY BELCHER MD [address] [place] [address] 02-16-2023 08:42-[address] PHILLY BELCHER MD [address] [place] [address] 02-16-2023 08:42-0500 Body height [address] PHILLY BELCHER MD [address] [place] [address] 02-16-2023 08:42-0500 Body temperature 97.34 [degF] DR PHILLY BELCHER MD [address] 02-16-2023 08:42-0500 Body weight 82.[address] PHILLY BELCHER MD [address] [place] [address] 02-16-2023 08:42-0500 Diastolic Blood Pressure Non-Invasive [address] PHILLY BELCHER MD [address] 02-16-2023 08:42-0500 Heart rate 71 /min DR PHILLY BELCHER MD [facility] 02-16-2023 08:42-0500 Systolic Blood Pressure Non-Invasive [address] PHILLY BELCHER MD [facility] 01-24-2023 14:37-0400 Body height 162.[address] [facility] 01-24-2023 14:37-0400 Body mass index (BMI) [Ratio] 31.4 kg/m2 [facility] 01-24-2023 14:37-0400 Body temperature 97.4 [degF] [facility] 01-24-2023 14:37-0400 Body weight 83.[address] [facility] 01-24-2023 14:37-0400 Diastolic blood pressure 74 mm[Hg] [facility] 01-24-2023 14:37-0400 Heart rate 91 /min [facility] 01-24-2023 14:37-0400 Respiratory rate 16 /min [facility] 01-24-2023 14:37-0400 SaO2% (BldA) [Mass fraction] 97 % [facility] 01-24-2023 14:37-0400 Systolic blood pressure 121 mm[Hg] [facility] 09-15-2022 14:32-0400 Body height 163.8 cm Elsa Kerr MD Work Phone: [facility] 09-15-2022 14:32-0400 Body weight 88 kg Elsa Kerr MD Work Phone: [facility] 09-15-2022 14:32-0400 Diastolic blood pressure 64 mm[Hg] Elsa Kerr MD Work Phone: [facility] 09-15-2022 14:32-0400 Heart rate 80 /min Elsa Kerr MD Work Phone: [facility] 09-15-2022 14:32-0400 Systolic blood pressure 112 mm[Hg] Elsa Kerr MD Work Phone: [facility] 06-30-2022 13:00-0400 Diastolic blood pressure 70 mm[Hg] Leigha Lemon PT [facility] 06-30-2022 13:00-0400 Systolic blood pressure 120 mm[Hg] Leigha Torres PT [facility] 06-30-2022 11:15-0400 Body height 163.8 cm Elsa Kerr MD Work Phone: [facility] 06-30-2022 11:15-0400 Body weight 97.34 kg Elsa Kerr MD Work Phone: [facility] 06-30-2022 11:15-0400 Diastolic blood pressure 76 mm[Hg] Elsa Kerr MD Work Phone: [facility] 06-30-2022 11:15-0400 Heart rate 76 /min Elsa Kerr MD Work Phone: [facility] 06-30-2022 11:15-0400 Systolic blood pressure 132 mm[Hg] Elsa Kerr MD Work Phone: [facility] 06-09-2022 14:41-0500 Body height 163.8 cm Cara Mihalik DO Work Phone: [facility] 06-09-2022 14:41-0500 Body weight 98.34 kg Cara Mihalik DO Work Phone: [facility] 06-09-2022 14:41-0500 Diastolic blood pressure 68 mm[Hg] Cara Mihalik DO Work Phone: [facility] 06-09-2022 14:41-0500 Systolic blood pressure 102 mm[Hg] Cara Mihalik DO Work Phone: [facility] 06-09-2022 13:09-0500 Body height 163.8 cm Elsa Kerr MD Work Phone: [facility] 06-09-2022 13:09-0500 Body weight 97.89 kg Elsa Kerr MD Work Phone: [facility] 06-09-2022 13:09-0500 Diastolic blood pressure 73 mm[Hg] Elsa Kerr MD Work Phone: [facility] 06-09-2022 13:09-0500 Heart rate 77 /min Elsa Kerr MD Work Phone: [facility] 06-09-2022 13:09-0500 Systolic blood pressure 109 mm[Hg] Elsa Kerr MD Work Phone: [facility] 05-23-2022 13:23-0500 Body height 163.8 cm Luzma Folk DEVELOPMENT CHEMIST.FIELD MARKETING ASSOCIATE Work Phone: [facility] 05-23-2022 13:23-0500 Body weight 98.79 kg Luzma Folk DEVELOPMENT CHEMIST.FIELD MARKETING ASSOCIATE Work Phone: [facility] 05-23-2022 13:23-0500 Diastolic blood pressure 67 mm[Hg] Luzma Folk DEVELOPMENT CHEMIST.FIELD MARKETING ASSOCIATE Work Phone: [facility] 05-23-2022 13:23-0500 Heart rate 87 /min Luzma Folk DEVELOPMENT CHEMIST.FIELD MARKETING ASSOCIATE Work Phone: [facility] 05-23-2022 13:23-0500 SaO2% (BldA) [Mass fraction] 92 % Luzma Folk DEVELOPMENT CHEMIST.FIELD MARKETING ASSOCIATE Work Phone: [facility] 05-23-2022 13:23-0500 Systolic blood pressure 107 mm[Hg] Luzma Folk DEVELOPMENT CHEMIST.FIELD MARKETING ASSOCIATE Work Phone: [facility] 05-22-2022 13:23-0500 Body height 163.8 cm Marvel Tank DO Work Phone: [facility] 05-22-2022 13:23-0500 Body temperature 97.81 [degF] Marvel Tank DO Work Phone: [facility] 05-22-2022 13:23-0500 Body weight 100.7 kg Marvel Tank DO Work Phone: [facility] 05-22-2022 13:23-0500 Diastolic blood pressure 83 mm[Hg] Marvel Atnk DO Work Phone: [facility] 05-22-2022 13:23-0500 Heart rate 86 /min Marvel Tank DO Work Phone: [facility] 05-22-2022 13:23-0500 Respiratory rate 18 /min Marvel Tank DO Work Phone: [facility] 05-22-2022 13:23-0500 SaO2% (BldA) [Mass fraction] 96 % Marvel Tank DO Work Phone: [facility] 05-22-2022 13:23-0500 Systolic blood pressure 131 mm[Hg] Marvel Tank DO Work Phone: [facility] 05-12-2022 08:38-0500 Body height 163.8 cm Elsa Kerr MD Work Phone: [facility] 05-12-2022 08:38-0500 Body weight 100.61 kg Elsa Kerr MD Work Phone: [facility] 05-12-2022 08:38-0500 Diastolic blood pressure 66 mm[Hg] Elsa Kerr MD Work Phone: [facility] 05-12-2022 08:38-0500 Heart rate 93 /min Elsa Kerr MD Work Phone: [facility] 05-12-2022 08:38-0500 Systolic blood pressure 112 mm[Hg] Elsa Kerr MD Work Phone: [facility] 01-03-2022 08:31-0400 Body height 165.1 cm Marvel Tank DO Work Phone: [facility] 01-03-2022 08:31-0400 Body temperature 97.5 [degF] Marvel Tank DO Work Phone: [facility] 01-03-2022 08:31-0400 Body weight 100.7 kg Marvel Tank DO Work Phone: [facility] 01-03-2022 08:31-0400 Diastolic blood pressure 56 mm[Hg] Marvel Tank DO Work Phone: [facility] 01-03-2022 08:31-0400 Heart rate 73 /min Marvel Tank DO Work Phone: [facility] 01-03-2022 08:31-0400 Systolic blood pressure 129 mm[Hg] Marvel Tank DO Work Phone: [facility] 11-29-2021 08:54-0400 Body height 165.1 cm Marvel Sam DO Work Phone: [facility] 11-29-2021 08:54-0400 Body temperature 97.2 [degF] Marvel Sam DO Work Phone: [facility] 11-29-2021 08:54-0400 Body weight 98.43 kg Marvel Sam DO Work Phone: [facility] 11-29-2021 08:54-0400 Diastolic blood pressure 73 mm[Hg] Marvel Tank DO Work Phone: [facility] 11-29-2021 08:54-0400 Heart rate 80 /min Marvel Sam DO Work Phone: [facility] 11-29-2021 08:54-0400 Respiratory rate 20 /min Marvel Sam DO Work Phone: [facility] 11-29-2021 08:54-0400 SaO2% (BldA) [Mass fraction] 94 % Marvel Sam DO Work Phone: [facility] 11-29-2021 08:54-0400 Systolic blood pressure 106 mm[Hg] Marvel Sam DO Work Phone: [facility] 11-22-2021 11:42-0400 Body height 165.1 cm Fanny Olivares Work [facility]: [facility] Work Phone: 11-22-2021 11:42-0400 Body mass index (BMI) [Ratio] 35.77 kg/m2 Fanny Olivares Work Phone: [facility] Work Phone: 11-22-2021 11:42-0400 Body surface area Derived from formula 2.04 m2 Fanny Olivares [facility]: [facility] Work Phone: 11-22-2021 11:42-0400 Body weight 97.5 kg Fanny Phoebe Olivares Work Phone: [address] Work Phone: 11-22-2021 11:42-0400 Diastolic blood pressure 68 mm[Hg] Fanny D Olivares Work Phone: [address] Work Phone: 11-22-2021 11:42-0400 Systolic blood pressure 122 mm[Hg] Fanny D Olivares Work Phone: [address] Work Phone: 10-29-2021 14:06-0400 Body height 165.1 cm Fanny Aldanakins Work Phone: [facility] Work Phone: 10-29-2021 14:06-0400 Body mass index (BMI) [Ratio] 34.95 kg/m2 Fanny Phoebe AldanaOlivares Work Phone: [facility] Work Phone: 10-29-2021 14:06-0400 Body surface area Derived from formula 2.02 m2 Fanny Aldanakins Work Phone: [facility] Work Phone: 10-29-2021 14:06-0400 Body weight 95.26 kg Fanny Aldanakins Work Phone: [facility] Work Phone: 10-29-2021 14:06-0400 Diastolic blood pressure 68 mm[Hg] Fanny Aguila Olivares Work Phone: [facility] Work Phone: 10-29-2021 14:06-0400 Heart rate 77 /min Fanny Aldanakins Work Phone: [facility] Work Phone: 10-29-2021 14:06-0400 SaO2% (BldA) [Mass fraction] 95 % Fanny Aldanakins Work Phone: [facility] Work Phone: 10-29-2021 14:06-0400 Systolic blood pressure 118 mm[Hg] Fanny Phoebe AldanaOlivares Work Phone: [facility] Work Phone: 10-08-2021 09:15-0400 Body height 165.1 cm Fanny Phoebe Olivares Work Phone: [facility] Work Phone: 10-08-2021 09:15-0400 Body mass index (BMI) [Ratio] 34.28 kg/m2 Fanny Phoebe Olivares Work Phone: [facility] Work Phone: 10-08-2021 09:15-0400 Body mass index (BMI) [Ratio] Patient Reason Not Done Fanny Aldanakins Work Phone: [facility] Work Phone: 10-08-2021 09:15-0400 Body surface area Derived from formula 2 m2 Fanny Phoebe Olivares Work Phone: [facility] Work Phone: 10-08-2021 09:15-0400 Body weight 93.44 kg Fanny Aldanakins Work Phone: [facility] Work Phone: 10-08-2021 09:15-0400 Diastolic blood pressure 82 mm[Hg] Fanny Aldanakins Work Phone: [facility] Work Phone: 10-08-2021 09:15-0400 Heart rate 92 /min Fanny Aldanakins Work Phone: [facility] Work Phone: 10-08-2021 09:15-0400 Systolic blood pressure 156 mm[Hg] Fanny Aldanakins Work Phone: [facility] Work Phone: 09-25-2021 09:48-0400 Body height 165.1 cm Fanny D Olivares Work Phone: [facility] Work Phone: 09-25-2021 09:48-0400 Body mass index (BMI) [Ratio] 34.28 kg/m2 Fanny D Olivares Work Phone: [facility] Work Phone: 09-25-2021 09:48-0400 Body surface area Derived from formula 2 m2 Fanny D Olivares Work Phone: [facility] Work Phone: 09-25-2021 09:48-0400 Body weight 93.44 kg Fanny D Olivares Work Phone: [facility] Work Phone: 09-25-2021 09:48-0400 Diastolic blood pressure 78 mm[Hg] Fanny D Olivares Work Phone: [facility] Work Phone: 09-25-2021 09:48-0400 Heart rate 84 /min Fanny D Olivares Work Phone: [facility] Work Phone: 09-25-2021 09:48-0400 Systolic blood pressure 138 mm[Hg] Fanny D Olivares Work Phone: [facility] Work Phone: 09-11-2021 10:13-0400 Body height 165.1 cm Fanny D Olivares Work Phone: [facility] Work Phone: 09-11-2021 10:13-0400 Body mass index (BMI) [Ratio] 33.61 kg/m2 Fanny D Olivares Work Phone: [facility] Work Phone: 09-11-2021 10:13-0400 Body surface area Derived from formula 1.99 m2 Fanny D Olivares Work Phone: [facility] Work Phone: 09-11-2021 10:13-0400 Body weight 91.62 kg Fanny Aldanakins Work Phone: [facility] Work Phone: 09-11-2021 10:13-0400 Diastolic blood pressure 76 mm[Hg] Fanny Aldanakins Work Phone: [facility] Work Phone: 09-11-2021 10:13-0400 Heart rate 80 /min Fanny Olivares Work Phone: [facility] Work Phone: 09-11-2021 10:13-0400 SaO2% (BldA) [Mass fraction] 94 % Fanny Olivares Work Phone: [facility] Work Phone: 09-11-2021 10:13-0400 Systolic blood pressure 126 mm[Hg] Fanny Olivares Work Phone: [facility] Work Phone: 08-08-2021 14:01-0400 Body height 165.1 cm Fanny Olivares Work Phone: [facility] Work Phone: 08-08-2021 14:01-0400 Body mass index (BMI) [Ratio] 31.95 kg/m2 Fanny Olivares Work Phone: [facility] Work Phone: 08-08-2021 14:01-0400 Body surface area Derived from formula 1.94 m2 Fanny Olivares Work Phone: [facility] Work Phone: 08-08-2021 14:01-0400 Body weight 87.09 kg Fanny Phoebe Olivares Work Phone: [facility] Work Phone: 08-08-2021 14:01-0400 Diastolic blood pressure 72 mm[Hg] Fanny Olivares Work Phone: [facility] Work Phone: 08-08-2021 14:01-0400 Heart rate 92 /min Fanny Olivares Work Phone: [facility] Work Phone: 08-08-2021 14:01-0400 Systolic blood pressure 122 mm[Hg] Fanny Olivares Work Phone: [facility] Internal Medicine Work Phone: 08-08-2021 14:01-0400 8 1 Fanny Olivares Work Phone: [facility] Internal Medicine Work Phone: Comment on above: PHQ-9 TS Encounters Encounter Date Encounter Type Care Provider Facility Start: 08-25-2024 End: 08-25-2024 ambulatory Jaret Fuller Facility:[facility] Start: 08-17-2024 End: 08-18-2024 Refill Chris Raza MD Work Phone: [facility] Internal 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); Optic cupping of both eyes; Combined forms of age-related cataract of both eyes; Hyperopia, bilateral Start: 08-05-2024 End: 08-05-2024 ambulatory CHRIS RAZA Facility:[facility] Start: 08-01-2024 End: 08-01-2024 ambulatory Jaret Fuller Facility:[facility] Start: 07-26-2024 End: 07-26-2024 ambulatory Patience Mccarty Facility:[facility] Start: 07-25-2024 End: 07-25-2024 ambulatory Jaret R Brown Facility:[facility] Start: 07-20-2024 End: 07-20-2024 ambulatory Jaret R Brown Facility:[facility] Start: 07-13-2024 End: 09-12-2024 Follow-up encounter Shruthi Dolan MD Work Phone: [facility] Start: 07-12-2024 End: 07-12-2024 ambulatory CHRIS RAZA Facility:[facility] Start: 07-12-2024 End: 07-12-2024 Patient encounter procedure Adeline Jj Bradley OD Work Phone: Ophthalmology Comment on above: 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); Combined forms of age-related cataract of both eyes; Regular astigmatism, bilateral; Presbyopia; Dry eye syndrome of bilateral lacrimal glands; Type 2 diabetes mellitus without retinopathy (HCC) Start: 07-11-2024 End: 07-11-2024 ambulatory Jaret R Jonny Facility:[facility] Start: 07-06-2024 End: 07-06-2024 ambulatory Jaret R Jonny Facility:[facility] Start: 07-05-2024 End: 07-05-2024 ambulatory Jaret R Brown Facility:[facility] Start: 06-01-2024 End: 06-06-2024 Refill Patience Alexander PA-C Work Phone: Pulmonary Medicine Comment on above: Refill Request Start: 05-25-2024 End: 05-25-2024 ambulatory Jaret R Jonny Facility:[facility] Start: 05-16-2024 End: 05-19-2024 Refill Chris Raza MD Work Phone: [facility] Internal [facility] ([facility]) Comment on above: Refill Request (Trel egtherese ellipta ) Start: 04-27-2024 End: 04-27-2024 ambulatory Jaret R Brown Facility:[facility] Start: 04-20-2024 End: 04-20-2024 ambulatory Jaret R Brown Facility:[facility] Start: 04-20-2024 End: 04-20-2024 ambulatory Jaret R Brown Facility:[facility] Start: 04-18-2024 End: 04-18-2024 ambulatory CHRIS RAZA Facility:[facility] Start: 04-18-2024 End: 04-18-2024 Patient encounter procedure Kenia Thao PA-C Work Phone: Orthopaedics Comment on above: Primary osteoarthrit is of right knee (Primary Dx) Start: 03-07-2024 End: 03-14-2024 Refill Chris Raza MD Work Phone: [facility] ([facility]) Comment on above: Refill Request Start: 02-09-2024 ambulatory Jaret Fuller Facilit y:[facility] Start: 02-02-2024 End: 02-02-2024 Orders Only Almas Cordero APRN.FIELD MARKETING ASSOCIATE Work Phone: Pulmonary Medicine Comment on above: Smoker (Primary Dx); Encounter for screening for malignant neoplasm of lung Start: 01-29-2024 End: 01-29-2024 [facility] Work Phone: [facility] Comment on above: Spirometry Start: 01-29-2024 End: 01-29-2024 Patient encounter [facility] Work Phone: [facility] Start: 01-29-2024 End: 01-29-2024 Subsequent hospital visit by physician [facility] ([facility]) Work Phone: Cat Scan Comment on above: Smoker [F17.200] Start: 01-21-2024 End: 01-21-2024 Telephone encounter Shruthi Dolan MD Work Phone: [facility] ([facility]) Comment on above: Patient Question (La b results) Start: 01-20-2024 End: 01-20-2024 Refill Chris Raza MD Work Phone: [facility] ([facility]) Comment on above: Refill Request Start: 01-19-2024 End: 01-19-2024 ambulatory No Primary Care Physician Facility:[facility] Start: 01-15-2024 End: 01-15-2024 ambulatory ALMAS CORDERO Facility:[facility] Start: 01-15-2024 End: 01-15-2024 Office outpatient visit 25 minutes Almas Cordero APRN.[employer] MARKETING ASSOCIATE Work Phone: Pulmonary Medicine Comment on above: Smoker (Primary Dx); Centrilobular emphysema (HCC); Encounter for screening for lung cancer Start: 01-11-2024 End: 01-11-2024 Patient encounter procedure Kenia Thao PA-C Work Phone: Orthopaedics Comment on above: Primary osteoarthrit is of right knee (Primary Dx) Start: 01-11-2024 End: 01-11-2024 ambulatory CHRIS RAZA Facility:[facility] Start: 01-06-2024 End: 01-06-2024 ambulatory STONEESTELITA RAZA Facility:[facility] Start: 01-06-2024 End: 01-06-2024 Patient encounter procedure Nadeem Otero MD Work Phone: Ophthalmology Comment on above: 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 ([facility]) Comment on above: Returning Patient's Call Start: 12-29-2023 End: 12-29-2023 ambulatory CHRIS RAZA Facility:[facility] Start: 12-29-2023 End: 12-29-2023 Patient encounter procedure Adeline Huerta OD Work Phone: Ophthalmology Comment on above: Type 2 diabetes sallie itus without retinopathy (HCC) (Primary Dx); Anatomical narrow angle; Combined forms of age-related cataract of both eyes; Dry eye syndrome of bilateral lacrimal glands; Hyperopia, bilateral; Regular astigmatism, bilateral; Presbyopia Start: 12-28-2023 End: 12-28-2023 Refill Almas Santizo LPN [facility] ([facility]) Comment on above: Refill Request (esom eprazole) Start: 12-17-2023 End: 12-17-2023 Telephone encounter Shruthi Dolan MD Work Phone: [facility] ([facility]) Comment on above: Refill Request Start: 12-15-2023 End: 12-15-2023 Orders Only Shruthi Dolan MD Work Phone: [facility] Start: 12-14-2023 End: 12-14-2023 ambulatory STONE-ALI VESNAFIAN Facility:[facility] Start: 12-14-2023 End: 12-14-2023 Patient encounter procedure Kenia Thao PA-C Work Phone: Orthopaedics Comment on above: Primary osteoarthrit is of right knee (Primary Dx) Start: 12-03-2023 End: 12-03-2023 Telephone encounter Chris Raza MD Work Phone: [facility] ([facility]) Comment on above: Referral Request (Ga stroenterolgy) Start: 12-03-2023 End: 12-03-2023 Patient encounter procedure Shruthi Dolan MD Work Phone: [facility] ([facility]) Comment on above: Type 2 diabetes sallie itus without complication, without long- term current use of insulin (HCC) (Primary Dx); Hx of mammogram; Obesity, Class I, BMI 30-34.9; Chronic obstructive pulmonary disease, unspecified COPD type (HCC); Anxiety; Depression screen; Lower extremity edema; Encounter for smoking cessation counseling; Chronic midline low back pain without sciatica; Skin sensitivity; Abdominal distention; Vitamin D deficiency Start: 12-03-2023 End: 12-03-2023 ambulatory STONE-ALI LOTFIAN Facility:[facility] Start: 11-30-2023 End: 11-30-2023 ambulatory STONE-ALI LOTFIAN Facility:[facility] Start: 11-30-2023 End: 11-30-2023 Patient encounter procedure Rafael Taylor MD Work Phone: Orthopaedics Comment on above: Primary osteoarthrit is of right knee (Primary Dx) Start: 11-23-2023 End: 11-24-2023 Refill Shruthi Dolan MD Work Phone: [facility] Internal [facility] ([facility]) Comment on above: Refill Request (Trel egy) Start: 10-21-2023 Refill Nany Flaherty [facility] ([facility]) Comment on above: Refill Request Start: 09-28-2023 End: 09-28-2023 Patient encounter procedure Kenia Thao PA-C Work Phone: Orthopaedics Comment on above: Primary osteoarthrit is of right knee (Primary Dx); Chronic pain of right knee Refill Request (Albu terol inhale/Bumetanide/Hydroxyzine/valsartan) Start: 09-28-2023 End: 09-28-2023 ambulatory STONE-ALI LOTFIAN Facility:[facility] Start: 09-14-2023 End: 09-14-2023 ambulatory STONE-ALI LOTFIAN Facility:[facility] Start: 09-14-2023 End: 09-14-2023 Patient encounter procedure Malinda Schroeder APRN.FIELD MARKETING ASSOCIATE Work Phone: Pulmonary Medicine Comment on above: Encounter for screen ing for lung cancer (Primary Dx); Cigarette nicotine dependence without complication; Tobacco use current Start: 09-09-2023 Telephone encounter Malinda carter DEVELOPMENT CHEMIST.FIELD MARKETING ASSOCIATE Work Phone: Pulmonary Medicine Comment on above: FILM JACK Start: 09-07-2023 End: 09-07-2023 ambulatory STONE-ALI LOTFIAN Facility:[facility] Start: 09-04-2023 Telephone encounter Marvel simeon DO Work Phone: [facility] Comment on above: Results Start: 09-03-2023 End: 09-03-2023 ambulatory STONE-ALI LOTFIAN Facility:[facility] Start: 08-28-2023 Refill Chris brewer MD Work Phone: [facility] ([facility]) Comment on above: Refill Request Start: 08-26-2023 Documentation procedure Mammog atul Coordinator [facility] Department Start: 08-26-2023 Letter encounter Mammography Coordinator [facility] Start: 08-25-2023 End: 08-25-2023 ambulatory STONE-ALI LOTFIAN Facility:[facility] Start: 08-25-2023 Refill Patience Willett PA-C Work Phone: Pulmonary Medicine Comment on above: Refill Request Start: 08-25-2023 End: 08-25-2023 Subsequent hospital visit by physician Screen Mammo [facility] Mammogram Comment on above: Encounter for screen ing mammogram for breast cancer [Z12.31] Start: 08-21-2023 Refill Chris brewer MD Work Phone: [facility] ([facility]) Comment on above: Refill Request (Mult iple) Start: 08-20-2023 Telephone encounter Almas Santizo LP N [facility] ([facility]) Comment on above: Patient Question Start: 08-17-2023 End: 08-17-2023 Patient encounter procedure Marvel Sam DO Work Phone: [facility] ([facility]) Comment on above: Type 2 diabetes sallie itus without complication, without long- term current use of insulin (HCC) (Primary Dx); Encounter for screening mammogram for breast cancer; Class 2 severe obesity due to excess calories with serious comorbidity and body mass index (BMI) of 36.0 to 36.9 in adult ([facility]); Advance care planning; Chronic obstructive pulmonary disease, unspecified COPD type ([facility]); Anxiety; Depression, major, single episode, moderate (HCC); Depression screen Start: 08-17-2023 End: 08-17-2023 ambulatory STONE-ALI LOTFIAN Facility:[facility] Start: 08-03-2023 Refill Marvel Sam DO Work Phone: [facility] Internal [facility] ([facility]) Comment on above: Refill Request Refill Request (Rosu vastatin, montelukast) Start: 07-28-2023 End: 07-28-2023 Patient encounter procedure Patience ROMERO-C Work Phone: Pulmonary Medicine Comment on above: Cigarette nicotine d ependence without complication (Primary Dx) Start: 06-29-2023 Telephone encounter Patience GIFFORDC Work Phone: Pulmonary Medicine Comment on above: Patient Update Start: 06-23-2023 End: 06-23-2023 Patient encounter procedure Patience ROMERO-C Work Phone: Pulmonary Medicine Comment on above: Cigarette nicotine d ependence without complication (Primary Dx) Start: 06-22-2023 End: 06-22-2023 Patient encounter procedure Kenia ROMERO-C Work Phone: Orthopaedics Comment on above: Primary osteoarthrit is of right knee (Primary Dx) Start: 06-12-2023 Telephone encounter Chris Raza MD Work Phone: [facility] ([facility]) Comment on above: Patient Update Start: 06-03-2023 Refill Marvel Sam DO Work Phone: [facility] ([facility]) Comment on above: Refill Request Start: 05-08-2023 Refill Chris brewer MD Work Phone: [facility] Internal [facility] ([facility]) Comment on above: Refill Request (albu terol) Start: 05-06-2023 Telephone encounter Marvel simeon DO Work Phone: [facility] ([facility]) Comment on above: Patient Update (BPs) Start: 04-29-2023 End: 04-29-2023 ambulatory CHRIS RAZA Facility:[facility] Start: 04-29-2023 End: 04-29-2023 ambulatory CHRIS RAZA Facility:[facility] Start: 04-09-2023 End: 04-10-2023 ambulatory MARVEL SAM DO Facility:A Start: 03-24-2023 ambulatory Luzma Folk A PRN.FIELD MARKETING ASSOCIATE Work Phone: [facility] Comment on above: New insurance 2023 Start: 03-23-2023 End: 03-24-2023 ambulatory MARVEL SAM DO Facility:A Start: 03-09-2023 End: 03-10-2023 ambulatory MARVEL SAM DO Facility:[facility] Start: 03-09-2023 End: 03-09-[address] PHILLY BELCHER MD [facility] Start: 03-06-2023 Telephone encounter Luzma Fo lk DEVELOPMENT CHEMIST.FIELD MARKETING ASSOCIATE Work Phone: [facility] Start: 03-05-2023 End: 03-05-2023 ambulatory Luzma Folk DEVELOPMENT CHEMIST.FIELD MARKETING ASSOCIATE Work Phone: [facility] Comment on above: Type 2 diabetes sallie itus without complication, without long- term current use of insulin (HCC) (Primary Dx) Start: 03-05-2023 End: 03-05-2023 Telemedicine consultation with patient Luzma Folk DEVELOPMENT CHEMIST.FIELD MARKETING ASSOCIATE Work Phone: [facility] Start: 03-05-2023 End: 03-06-2023 ambulatory LUZMA FOLK Facility:[facility] Start: 03-01-2023 ambulatory Luzma Folk A PRN.FIELD MARKETING ASSOCIATE Work Phone: [facility] Comment on above: Insurance? Start: 02-23-2023 End: 02-24-2023 Refill Marvel Sam DO Work Phone: [facility] Internal Medicine [facility] ([facility]) Comment on above: Refill Request Start: 02-23-2023 End: 02-24-[address] PHILLY BELCHER MD [facility] Start: 02-16-2023 End: 02-17-2023 ambulatory MARVEL SAM DO Facility:A Start: 02-16-2023 End: 02-16-[address] PHILLY BELCHER MD [facility] Start: 02-12-2023 End: 02-13-2023 ambulatory MARVEL SAM DO Facility:A Start: 02-03-2023 Telephone encounter Marvel simeon DO Work Phone: [facility] ([facility]) Comment on above: Records Start: 01-29-2023 Refill Marvel Sam DO Work Phone: [facility] ([facility]) Comment on above: Refill Request Start: 01-24-2023 End: 01-24-2023 Emergency department patient visit [facility] Department Work Phone: Start: 01-22-2023 Telephone encounter Marvel simeon DO Work Phone: [facility] ([facility]) Comment on above: Results Start: 01-19-2023 Refill Marvel Sam DO Work Phone: [facility] ([facility]) Comment on above: Refill Request Start: 01-14-2023 Telephone encounter Marvel simeon DO Work Phone: [facility] ([facility]) Comment on above: Referral Request (Ga stroenterology ) Refill Request (Ozem pic ) Start: 12-26-2022 Telephone encounter Marvel simeon DO Work Phone: [facility] ([facility]) Comment on above: Results Start: 12-24-2022 Telephone encounter Marvel simeon DO Work Phone: [facility] ([facility]) Comment on above: Insurance Authorizat ion Start: 12-19-2022 Telephone encounter Elsa raman MD Work Phone: [facility] Comment on above: Appointment (Friday 12/22) Start: 12-18-2022 End: 12-18-2022 Patient encounter procedure Adeline Huerta OD Work Phone: Ophthalmology Comment on above: Type 2 diabetes slalie itus without retinopathy (HCC) (Primary Dx); Combined forms of age-related cataract of both eyes; Dry eye syndrome of bilateral lacrimal glands; Hyperopia, bilateral; Regular astigmatism, bilateral; Presbyopia Start: 12-17-2022 Telephone encounter Marvel simeon DO Work Phone: [facility] ([facility]) Comment on above: Referral Information (Consult to optometry) Referral Information (Consult to physical therapy) Start: 12-15-2022 End: 12-15-2022 Subsequent hospital visit by physician Adry [facility] Komal Mob Work Phone: Radiology Comment on above: Pain [R52] Start: 12-08-2022 Refill Marvel Sam DO Work Phone: [facility] ([facility]) Comment on above: Refill Request (alco hol swabs, lancets, test strips) Refill Request Start: 11-27-2022 Telephone encounter Luzma king APRN.FIELD MARKETING ASSOCIATE Work Phone: [facility] Comment on above: F/U 3 months Start: 11-26-2022 End: 11-26-2022 ambulatory Luzma Barillas APRN.CNP Work Phone: [facility] Comment on above: Type 2 diabetes sallie itus without complication, without long- term current use of insulin (HCC) (Primary Dx) Start: 11-26-2022 End: 11-26-2022 Telemedicine consultation with patient Luzma Barillas APRN.CNP Work Phone: [facility] Start: 11-24-2022 Refill Marvel Sam DO Work Phone: [facility] ([facility]) Comment on above: Refill Request Start: 11-11-2022 Refill Elsa Kerr M D Work Phone: [facility] Comment on above: Refill Request Start: 11-10-2022 Refill Chris brewer MD Work Phone: [facility] ([facility]) Comment on above: Refill Request (bume tanide) Refill Request (albu terol) Refill Request Start: 10-31-2022 Refill Marvel Sam DO Work Phone: [facility] ([facility]) Comment on above: Refill Request Start: 10-20-2022 Refill Elsa Kerr M D Work Phone: [facility] Comment on above: Refill Request Start: 09-25-2022 ambulatory Elsa Kerr M D Work Phone: [facility] Comment on above: Appetite increase Start: 09-19-2022 Chart abstracting Solis smith MD Work Phone: [facility] Comment on above: Polysomnogram Start: 09-16-2022 Telephone encounter Marvel simeon DO Work Phone: [facility] ([facility]) Comment on above: Blood Pressure (Lowe ring with weight loss) Start: 09-15-2022 End: 09-15-2022 Patient encounter procedure Elsa Kerr MD Work Phone: [facility] Comment on above: Obesity, Class II, B NJ 35-39.9 (Primary Dx); Type 2 diabetes mellitus without complication, without long-term current use of insulin (HCC) Start: 09-10-2022 Telephone encounter Solis novoa MD Work Phone: [facility] ([facility]) Comment on above: Results Start: 09-09-2022 Refill Solis corona MD Work Phone: [facility] ([facility]) Comment on above: Refill Request (hydr oxyzine) Start: 09-04-2022 Refill Marvel Sam DO Work Phone: [facility] ([facility]) Comment on above: Refill Request Start: 08-28-2022 End: 08-28-2022 Subsequent hospital visit by physician Xr [facility] Komal De Luna Work Phone: Radiology Comment on above: Right shoulder pain, unspecified chronicity [M25.511] Start: 08-18-2022 Telephone encounter Elsa raman MD Work Phone: [facility] Comment on above: Refill Request Start: 08-17-2022 ambulatory Solis corona MD Work Phone: [facility] ([facility]) Comment on above: Pharmacy Change Refill Request (trel egy) Refill Request Start: 08-13-2022 Telephone encounter Marvel siemon DO Work Phone: [facility] ([facility]) Comment on above: Orders (Patient requ est R arm xray) Start: 08-11-2022 Refill Marvel Sam DO Work Phone: [facility] ([facility]) Comment on above: Refill Request Start: 08-04-2022 Telephone encounter Marvel simeon DO Work Phone: [facility] Comment on above: Results Start: 07-23-2022 Refill Marvel Sam DO Work Phone: [facility] ([facility]) Comment on above: Refill Request (bume x); Refill Request Start: 07-16-2022 End: 07-16-2022 Patient encounter procedure Sleep Lab Ak Bed 2 [facility] Comment on above: Daytime sleepiness Refill Request (saulo tor) Start: 07-10-2022 Telephone encounter Jelly jacinto RN [facility] Comment on above: unable to schedule s creening colonoscopy Start: 07-08-2022 Chart abstracting Marvel Sam DO Work Phone: [facility] Comment on above: PSG Check In Start: 06-30-2022 End: 06-30-2022 Patient encounter procedure Elsa Kerr MD Work Phone: [facility] Comment on above: Type 2 diabetes sallie itus without complication, without long- term current use of insulin (HCC) (Primary Dx); Class 2 severe obesity due to excess calories with serious comorbidity and body mass index (BMI) of 36.0 to 36.9 in adult (HCC); Essential hypertension Refill Request (mult iple medications) Start: 06-30-2022 End: 06-30-2022 OT/PT/Speech Visit Leigha Torres PT [facility] Physical [facility] Comment on above: Disorder of right ro tator cuff (Primary Dx) Start: 06-24-2022 Refill Marvel Sam DO Work Phone: [facility] Internal Medicine [facility] ([facility]) Comment on above: Refill Request Refill Request (Bume tanide) Start: 06-19-2022 Telephone encounter Cara healy DO Work Phone: [facility] Obstetrics & Gynecology Comment on above: Orders Start: 06-09-2022 End: 06-09-2022 Patient encounter procedure Cara Lujan DO Work Phone: [facility] Obstetrics & Gynecology Comment on above: Well woman exam (Mary jules Dx); Encounter for screening for malignant neoplasm of cervix; Encounter for screening mammogram for malignant neoplasm of breast; Encounter for screening for malignant neoplasm of colon; Mass of upper outer quadrant of left breast Class 2 severe obesi ty due to excess calories with serious comorbidity and body mass index (BMI) of 36.0 to 36.9 in adult (HCC) (Primary Dx); Type 2 diabetes mellitus without complication, without long-term current use of insulin (HCC); Hyperlipidemia, unspecified hyperlipidemia type; Essential hypertension Start: 05-30-2022 Telephone encounter Marvel simeon DO Work Phone: [facility] ([facility]) Comment on above: Patient Question Start: 05-26-2022 Telephone encounter Marvel simeon DO Work Phone: [facility] ([facility]) Comment on above: Medication Authoriza tion (Mounjaro) Start: 05-23-2022 End: 05-23-2022 Patient encounter procedure Luzma Barillas FIELD MARKETING ASSOCIATE Work Phone: [facility] Comment on above: Type 2 diabetes sallie itus without complication, without long- term current use of insulin (HCC) (Primary Dx); Class 2 severe obesity due to excess calories with serious comorbidity and body mass index (BMI) of 36.0 to 36.9 in adult (HCC) Start: 05-22-2022 End: 05-22-2022 Patient encounter procedure Marveljennifer Sam DO Work Phone: [facility] ([facility]) Comment on above: Class 2 obesity due to excess calories without serious comorbidity with body mass index (BMI) of 35.0 to 35.9 in adult (Primary Dx); Controlled type 2 diabetes mellitus without complication, without long-term current use of insulin (HCC); Insomnia, unspecified type; Daytime sleepiness; Disorder of right rotator cuff; Primary osteoarthritis of both knees; Leg swelling Start: 05-19-2022 Refill Solis corona MD Work Phone: [facility] ([facility]) Comment on above: Refill Request (Hydr oxyzine) Start: 05-12-2022 End: 05-12-2022 Refill Solis Bedoya MD Work Phone: [facility] ([facility]) Comment on above: Refill Request (bume x) Obesity, Class II, B NJ 35-39.9 (Primary Dx); Type 2 diabetes mellitus without complication, without long-term current use of insulin (HCC); Snoring; Hyperlipidemia, unspecified hyperlipidemia type; Essential hypertension Start: 05-08-2022 Refill Marvel Sam DO Work Phone: [facility] ([facility]) Comment on above: Refill Request (new mailorder RX's) Start: 04-28-2022 Refill Marvel Sam DO Work Phone: [facility] ([facility]) Comment on above: Refill Request (bumr tsanide) Refill Request (hydr oxyz HCL) Start: 04-09-2022 Refill Marvel Sam DO Work Phone: [facility] ([facility]) Comment on above: Refill Request (Bume tanide, Glimerpiride, Hydroxyzine) Start: 04-02-2022 Telephone encounter Marvel simeon DO Work Phone: [facility] ([facility]) Comment on above: Results (A1C) Results Start: 03-26-2022 End: 03-30-2022 ambulatory [facility] Start: 03-25-2022 Telephone encounter Solis novoa MD Work Phone: [facility] ([facility]) Comment on above: Orders (labs) Start: 2022 Telephone encounter Solis novoa MD Work Phone: [facility] ([facility]) Comment on above: Referral Information (Obesity Medicine) Start: 02-21-2022 Telephone encounter [facility] Provider [facility] Comment on above: Internal Referrals/r esources (PCP ref into program 1st call spoke to PT wasn't sure which program would want to enroll into. PT did however, explain that she doesn't want to take more medication. PT advised would callback after speak with her mom. ) Start: 02-20-2022 Telephone encounter Solis novoa MD Work Phone: [facility] ([facility]) Comment on above: Referral Information (Obesity Medicine) Start: 02-05-2022 Refill Marvel Sam DO Work Phone: [facility] ([facility]) Comment on above: Rx Refills (All medi cations) Start: 02-03-2022 Telephone encounter Solis novoa MD Work Phone: [facility] ([facility]) Comment on above: Medication Problem ( Approve glimepiride (AMARYL) with pharmacy/) Start: 01-28-2022 Refill Solis corona MD Work Phone: [facility] ([facility]) Comment on above: Refill Request (glim epiride (AMARYL) NEW MAIL ORDER) Start: 01-16-2022 Telephone encounter Jeane Coelho RD Work Phone: [facility] Comment on above: No Show Start: 01-15-2022 Telephone encounter Marvel simeon DO Work Phone: [facility] ([facility]) Comment on above: Refill Request Start: 01-10-2022 End: 01-10-2022 Patient encounter procedure Sánchez Heard OD Work Phone: Optometry Comment on above: Type 2 diabetes sallie itus without retinopathy (HCC) (Primary Dx); Hyperopia, bilateral; Regular astigmatism, bilateral; Presbyopia Start: 01-08-2022 Telephone encounter Marvel simeon DO Work Phone: [facility] ([facility]) Comment on above: Insurance Authorizat ion (DICLOFENAC GEL- initiated) Start: 01-03-2022 Telephone encounter Marvel simeon DO Work Phone: [facility] ([facility]) Comment on above: Medication Problem Start: 01-03-2022 End: 01-03-2022 Patient encounter procedure Marvel Sam DO Work Phone: [facility] ([facility]) Comment on above: Controlled type 2 di abetes mellitus without complication, without long-term current use of insulin (HCC) (Primary Dx); Primary osteoarthritis of both knees; Leg swelling; Weight gain; Primary hypertension Start: 12-25-2021 Telephone encounter Marvel simeon DO Work Phone: [place] [facility] Comment on above: Results Start: 12-24-2021 Telephone encounter Marvel simeon DO Work Phone: [facility] ([facility]) Comment on above: Symptoms Start: 12-11-2021 ambulatory Ms. FANNY Pete acility:[phone] Start: 11-29-2021 End: 11-29-2021 Patient encounter procedure Marvel Sam DO Work Phone: [facility] ([facility]) Comment on above: Primary hypertension (Primary Dx); Chronic obstructive pulmonary disease, unspecified COPD type (HCC); Smoking; Anxiety; Primary osteoarthritis of both knees; Weight gain; Peptic ulcer disease; Leg swelling Start: 11-22-2021 AUDIT Fanny Olivares Work Phone: [facility] Work Phone: Start: 11-22-2021 Office outpatient ne w 30 minutes Fanny Olivares Work Phone: [address] Work Phone: Start: 11-22-2021 ambulatory Ms. FANNY Pete acility:[phone] Start: 11-13-2021 AUDIT Fanny Olivares Work Phone: [facility] Work Phone: Start: 11-11-2021 ambulatory Fanny Hernandes Facility:[phone] Start: 11-07-2021 AUDIT Fanny Olivares Work Phone: [facility] Work Phone: Start: 11-07-2021 ambulatory Fanny Hernandes Facility:[phone] Start: 10-31-2021 AUDIT Fanny Olivares Work Phone: [facility] Work Phone: Start: 10-31-2021 EGD, Provider: Katy San, Status: Pen, Time: 10:30 AM Fanny Phoebe AldanaOlivares Work Phone: [facility] Work Phone: Start: 10-31-2021 End: 10-31-2021 ambulatory Fanny Hernandes Facility:[id number] Start: 10-29-2021 Office outpatient vi sit 25 minutes Fanny D Olivares Work Phone: [facility] Work Phone: Start: 10-29-2021 ambulatory Ms. FANNY HUMPHREY OLIVARES F acility:[phone] Start: 10-24-2021 Chart Update Fanny D Olivares Work Phone: [facility] Work Phone: Start: 10-23-2021 ambulatory Fanny Hernandes Facility:[phone] Start: 10-16-2021 AUDIT Fanny D Olivares Work Phone: [facility] Work Phone: Start: 10-15-2021 Chart Update Fanny D Olivares Work Phone: [facility] Work Phone: Start: 10-11-2021 ambulatory Fanny Hernandes Facility:[phone] Start: 10-08-2021 ambulatory Ms. AFNNY OLIVARES F acility:[phone] Start: 09-26-2021 AUDIT Fanny D Olivares Work Phone: [facility] Work Phone: Start: 09-25-2021 Office outpatient vi sit 25 minutes Fanny D Olivares Work Phone: [facility] Work Phone: Start: 09-25-2021 ambulatory MsParis OLIVARES F acility:[phone] Start: 09-18-2021 AUDIT Fanny D Olivares Work Phone: [facility] Work Phone: Start: 09-11-2021 Adv care pln/ no alt dcsn mkr docd or refusal Fanny Olivares Work Phone: [facility] Work Phone: Start: 09-11-2021 MCRINITIAL, Provider : Fanny Olivares, Status: Pen, Time: 10:20 AM Fanny Olivares Work Phone: [facility] Work Phone: Start: 09-11-2021 ambulatory MsParis HUMPHREY MARSHALL F acility:[phone] Start: 09-10-2021 Chart Update Fanny Olivares Work Phone: [facility] Work Phone: Start: 09-09-2021 Chart Update Fanny Olivares Work Phone: [facility] Work Phone: Start: 09-05-2021 EGDCOLON, Provider: Katy San, Status: Pen, Time: 9:00 AM Fanny Olivares Work Phone: [facility] Work Phone: Start: 09-05-2021 End: 09-05-2021 ambulatory Katy San Facility:[id number] Start: 09-03-2021 AUDIT Fanny Olivares Work Phone: [facility] Work Phone: Start: 08-28-2021 AUDIT Fanny Olivares Work Phone: [facility] Work Phone: Start: 08-08-2021 Office outpatient vi sit 25 minutes Fanny Olivares Work Phone: [facility] Work Phone: Start: 08-08-2021 ambulatory MsParis HUMPHREY MARSHALL Pete acility:[phone] Patient encounter procedure Fanny Olivares Work Phone: [facility] Work Phone: Procedures Date Procedure Procedure Detail Performing Clinician Start: 07-12-2024 Visual field xm uni/bi w/interp extended exam Adeline Huerta OD Work Phone: Start: 04-18-2024 Arthrocentesis aspir&/inj major jt/bursa w/o us Kenia Vetovitz PA-C Work Phone: Start: 01-29-2024 Brncdilat rspse spmtry pre&post-brncdilat admn Almas Cordero DEVELOPMENT CHEMIST.FIELD MARKETING ASSOCIATE Work Phone: Start: 01-11-2024 Arthrocentesis aspir&/inj major jt/bursa w/o us Kenia Vetovitz PA-C Work Phone: Start: 01-06-2024 End: 01-06-2024 Fundus photography w/interpretation & report Nadeem Otero MD Work Phone: Start: 01-06-2024 IOL BIOMETRY W/ IOL CALC OU (BOTH EYES) Nadeem Otero MD Work Phone: Start: 12-29-2023 Computerized ophthalmic imaging optic nerve Adeline Huerta OD Work Phone: Start: 12-03-2023 Hemoglobin A1c/Hemoglobin.total in Blood Shruthi Dolan MD Work Phone: Start: 09-28-2023 Arthrocentesis aspir&/inj major jt/bursa w/o us Kenia Vetovitz PA-C Work Phone: Start: 06-22-2023 Arthrocentesis aspir&/inj major jt/bursa w/o us Kenia Vetovitz PA-C Work Phone: Start: 02-23-[address] PHILLY BELCHER MD Comment on above: Lateral internal sphincterotomy, 3 colum n hemorrhoid external Start: 12-15-2022 Radiologic exam knee complete 4/more views Kenia Vetovitz PA-C Work Phone: Start: 08-28-2022 Radex shoulder complete minimum 2 views En Doan DO Work Phone: Start: 08-27-2022 Mammography Solis Bedoya MD Work Phone: Start: 03-26-2022 Hemoglobin A1c/Hemoglobin.total in Blood Marvel Sam DO Work Phone: Start: 10-31-2021 Colonoscopy Solis Bedoya MD Work Phone: Start: 09-05-2021 Colonoscopy Fanny Olivares Work Phone: Start: 09-05-2021 Colonoscopy Fanny Olivares Work Phone: Comment on above: E. COLON, RANDOM BIOPSIES:--COLONIC MUCO SA, NO SIGNIFICANT HISTOPATHOLOGICAL ABNORMALITIES.; Start: 09-05-2021 Esophagogastroduodenoscopy Fanny Olivares Work Phone: Comment on above: FINAL DIAGNOSISA. SPECIMEN LABELED GASTR IC ULCER, BIOPSY:--OXYNTIC MUCOSA DEMONSTRATING FOCAL HISTOPATHOLOGICAL FEATURES SUGGESTIVE OFHEALED EROSION/ULCER, NO HELICOBACTER IDENTIFIED.B. ESOPHAGUS, BIOPSIES:--SQUAMOUS EPITHELIUM, NO SIGNIFICANT HISTOPATHOLOGICAL ABNORMALITIES.C. GASTRIC ANTRUM, BIOPSY:--REACTIVE GASTROPATHY, NO HELICOBACTER IDENTIFIED.D. DISTAL ESOPHAGUS, BIOPSY:--SQUAMOCOLUMNAR JUNCTIONAL MUCOSA DEMONSTRATING FOCAL HISTOPATHOLOGICALFEATURES CONSISTENT WITH PRIOR MUCOSAL INJURY, NO ACUTE INFLAMMATION ORINTESTINAL METAPLASIA IDENTIFIED.; Start: 08-28-2020 Repair of musculotendinous cuff of shoulder Fanny Olivares Work Phone: Comment on above: R SHOULDER; section Fanny Dennis s Work Phone: Comment on above: X 2 1 VAGINAL DELIVERY; section DR PHILLY BELCHER MD Colonoscopy Fanny Olivares Work Phone: Comment on above: 4 YEARS PER PTH/O POLYPS PER PT; Colonoscopy DR PHILLY BELCHER MD Complete repair of rotator cuff DR PHILLY BELCHER MD Comment on above: right Esophagogastroduodenoscopy A ledy Olviares Work Phone: Comment on above: 4 YEARS AGO PER PTGERD PER PTULCER PER P T; Esophagogastroduodenoscopy Phoebe BELCHER MD Tooth extraction, multiple Phoebe BELCHER MD Plan of Treatment Date Care Activity Detail Author Start: 12-16-2032 Urine microalbumin profile DTaP,Tdap,Td Vaccine (2 - Td or Tdap) [facility] Start: 06-10-2027 HPV TESTING HPV TESTING [facility] Start: 06-10-2027 PAP TESTING PAP TESTING [facility] Start: 12-23-2026 LIPID SCREEN LIPID SCREEN [facility] Start: 08-05-2025 Glaucoma screening Dilated Retinal Exam [facility] Start: 02-06-2025 End: 02-06-2025 Patient encounter procedure 02/06/2025 2:45 PM EST Office Visit [facility] [address] [place] [address] Nadeem Otero MD [address] [place] [id number] angle closure suslpect Ophthalmology Comment on above: angle closure suslpect Start: 01-28-2025 Screening for malignant neoplasm of lung Lung Cancer Screening [facility] Start: 01-14-2025 BP Controlled (<130/80) BP Controlled (<130/80) [facility] Start: 01-05-2025 Glaucoma screening Dilated Retinal Exam [facility] Start: 12-23-2024 DIABETES SCREEN DIABETES SCREEN [facility] Start: 12-02-2024 Annual PCP Team Chronic Disease Visit Annual PCP Team Chronic Disease Visit [facility] Start: 12-02-2024 BP Controlled (<130/80) BP Controlled (<130/80) [facility] Start: 09-13-2024 BP Controlled (<130/80) BP Controlled (<130/80) [facility] Start: 09-02-2024 Hepatitis B screening Urine Albumin:Creatinine Ratio [facility] Start: 08-24-2024 Screening for malignant neoplasm of breast Mammogram Screening [facility] Start: 08-16-2024 Annual PCP Team Chronic Disease Visit Annual PCP Team Chronic Disease Visit [facility] Start: 08-16-2024 Anxiety Screening Anxiety Screening [facility] Start: 08-16-2024 BP Controlled (<130/80) BP Controlled (<130/80) [facility] Start: 08-05-2024 End: 08-05-2024 Patient encounter procedure Ophthalmology Comment on above: 6 months (around 07/06/2024) for Primary a ngle closure 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 Start: 07-27-2024 BP Controlled (<130/80) BP Controlled (<130/80) [facility] Start: 07-18-2024 End: 07-18-2024 Patient encounter procedure 07/18/2024 11:30 AM EDT Office Visit Orthopaedics [address] [place], [place] [id number] Kenia Thao PA-C [address] [place] [address] Right knee cortisone injection Orthopaedics Comment on above: Right knee cortisone injection Start: 07-12-2024 End: 07-12-2024 Patient encounter procedure 07/12/2024 2:15 PM EDT Office Visit [facility] [address] [place] [address] Adeline Huerta, OD [address] [place] [address] Routine check up Ophthalmology Comment on above: Routine check up Start: 07-12-2024 End: 07-12-2024 Patient encounter procedure 07/12/2024 10:30 AM EDT Office Visit [facility] [address] [place] [address] Nadeem Otero MD [address] [place] [address] 6 months (around 07/06/2024) for 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 Ophthalmology Comment on above: 6 months (around 07/06/2024) for Primary a ngle closure suspect Start: 06-03-2024 Hemoglobin A1c measurement HbA1C [facility] Start: 05-31-2024 End: 05-31-2024 Patient encounter procedure 05/31/2024 1:00 PM EST Office Visit [facility] [address] [place] [address] Adeline Huerta, OD [address] [place] [address] Routine check up Ophthalmology Comment on above: Routine check up Start: 05-18-2024 End: 05-18-2024 Patient encounter procedure 05/18/2024 10:00 AM EST Office Visit [facility] [address] [place] [address] Isac Barry MD [address] [facility] [place] eros [address] [place] [address], [place] [address] New Patient - Abdominal distention -LG [facility] Comment on above: New Patient - Abdominal distention -LG Start: 04-30-2024 Screening for osteoporosis Bone Density Screening [facility] Comment on above: Postponed from 2023 (Declined at t his time) Start: 04-29-2024 Annual PCP Team Chronic Disease Visit Annual PCP Team Chronic Disease Visit [facility] Start: 04-29-2024 BP Controlled (<130/80) BP Controlled (<130/80) [facility] Start: 04-18-2024 End: 04-18-2024 Patient encounter procedure 04/18/2024 11:30 AM EST Office Visit Orthopaedics [address] [place] [address] Kenia Thao PA-C [address] [place] [address] Right knee cortisone injection Orthopaedics Comment on above: Right knee cortisone injection Start: 04-07-2024 End: 04-07-2024 Patient encounter procedure 04/07/2024 10:00 AM EST Office Visit [facility] [address] [place] [address] Adeline Huerta, OD [address] [place] [address] 3 months for visual field test per dr otero Ophthalmology Comment on above: 3 months for visual field test per dr rodrick lacy Start: 04-06-2024 Advance Directive Discussion Advance Directive Discussion [facility] Start: 03-24-2024 Diabetic foot examination Diabetic Foot Exam [facility] Start: 02-29-2024 End: 02-29-2024 Patient encounter procedure 02/29/2024 10:30 AM EST Office Visit Pulmonary Medicine [address] [place] [address] Almas Cordero, LORIE.FIELD MARKETING ASSOCIATE [address] [place] [address] Follw up Pulmonary Medicine Comment on above: Follw up Start: 01-29-2024 End: 01-29-2024 Patient encounter procedure 01/29/2024 11:00 AM EDT Appointment Cat Scan [address] [place] [address] Smoker [F17.200]; Encounter for screening for lung cancer [Z12.2] Cat Scan Comment on above: Smoker [F17.200]; Encounter for screenin g for lung cancer [Z12.2] Start: 01-29-2024 End: 01-29-2024 ambulatory [facility] Comment on above: Centrilobular emphysema (HCC) [J43.2] Start: 01-15-2024 End: 01-15-2024 Patient encounter procedure 01/15/2024 10:00 AM EDT Office Visit Pulmonary Medicine [address] [place] [address] Almas Cordero, LORIE.FIELD MARKETING ASSOCIATE [address] [place] [address] lcs Pulmonary Medicine Comment on above: lcs Start: 01-11-2024 End: 01-11-2024 Patient encounter procedure 01/11/2024 11:30 AM EDT Office Visit Orthopaedics [address] [place] [address] Kenia Thao PA-C [address] [place] [address] Right knee cortisone injection Orthopaedics Comment on above: Right knee cortisone injection Start: 01-06-2024 End: 01-06-2024 Patient encounter procedure 01/06/2024 10:00 AM EDT Office Visit [facility] [address] [place] [id number] Nadeem Otero MD [address] [place] [address] Narrow angle consult/dilated diabetic eye exam by Dr huerta Ophthalmology Comment on above: Narrow angle consult/dilated diabetic ey e exam by Dr huerta Start: 12-29-2023 End: 12-29-2023 Patient encounter procedure 12/29/2023 12:30 PM EDT Office Visit [facility] [address] [place] [address] Adeline Huerta, OD [address] [place] [address] Eye exam Ophthalmology Comment on above: Eye exam Start: 12-25-2023 Hepatitis B surface antibody level LDL Cholesterol [facility] Start: 12-21-2023 End: 12-21-2023 Patient encounter procedure 12/21/2023 1:15 PM EDT Office Visit [facility] [address] [place] [address] Adeline Huerta, OD [address] [place] [address] Eye Exam Ophthalmology Comment on above: Eye Exam Start: 12-19-2023 Glaucoma screening Dilated Retinal Exam [facility] Start: 12-19-2023 Hepatitis C antibody, confirmatory test Dilated Retinal Exam [facility] Start: 12-17-2023 Annual PCP Team Chronic Disease Visit Annual PCP Team Chronic Disease Visit [facility] Start: 12-17-2023 BP Controlled (<130/80) BP Controlled (<130/80) [facility] Start: 12-17-2023 Colorectal Cancer Screening Colorectal Cancer Screening [facility] Comment on above: Postponed from 2003 (Declined at t his time) Start: 12-17-2023 Screening for malignant neoplasm of colon Colorectal Cancer Screening [facility] Comment on above: Postponed from 2003 (Declined at t his time) Start: 12-14-2023 End: 12-14-2023 Patient encounter procedure 12/14/2023 11:30 AM EDT Office Visit Orthopaedics [address] [place] [address] Kenia Thao PA-C [address], [place] [id number] Right knee cortisone injection Orthopaedics Comment on above: Right knee cortisone injection Start: 12-06-2023 Covid-19 Vaccine ( season) Covid-19 Vaccine ( season) [facility] Start: 12-06-2023 Covid-19 Vaccine ( season) Covid-19 Vaccine ( season) [facility] Start: 12-06-2023 Influenza vaccination Influenza Vaccine (#1) [facility] Start: 12-03-2023 End: 03-03-2024 25-hydroxyvitamin D3 [Mass/volume] in Serum or Plasma VITAMIN D 25 HYDROXY Lab Routine Vitamin D deficiency Expected: 12/03/2023, Expires: 03/03/2024 [facility] Comment on above: Expected: 12/03/2023, Expires: Start: 12-03-2023 End: 12-03-2023 Patient encounter procedure 12/03/2023 1:40 PM EDT Office Visit [facility] Internal Medicine [facility] ([facility]) [address] [facility] [place] [address] [place] [address] Shruthi Dolan MD [address] [place], [place] [id number] 3 months f/u [facility] Internal Medicine [facility] ([facility]) Comment on above: 3 months f/u Start: 11-30-2023 End: 11-30-2023 Patient encounter procedure 11/30/2023 2:45 PM EDT Office Visit Orthopaedics [address] [place] [address] Rafael Taylor MD [address] [place] [address] right knee Orthopaedics Comment on above: right knee Start: 10-22-2023 End: 10-22-2023 Patient encounter procedure 10/22/2023 10:40 AM EDT Office Visit Orthopaedics [address] [place] [address] Rafael Taylor MD [address] [place] [address] right knee Orthopaedics Comment on above: right knee Start: 09-30-2023 End: 09-30-2023 Patient encounter procedure 09/30/2023 11:00 AM EDT Office Visit Pulmonary Medicine [address] [place] [address] Patience Alexander PA-C [address] [place] [address] 6 WK F/U Pulmonary Medicine Comment on above: 6 WK F/U Start: 09-30-2023 End: 09-30-2023 ambulatory [facility] Comment on above: 6 WK F/U Start: 09-28-2023 End: 09-28-2023 Patient encounter procedure 09/28/2023 11:30 AM EDT Office Visit Orthopaedics [address] [place] [address] Kenia Thao PA-C [address] [place] [address] 3 month follow up Orthopaedics Comment on above: 3 month follow up Start: 09-22-2023 Hemoglobin A1c measurement HbA1C [facility] Start: 09-16-2023 BP CONTROLLED (<130/80) BP CONTROLLED (<130/80) [facility] Start: 09-14-2023 End: 09-14-2023 Patient encounter procedure 09/14/2023 1:30 PM EDT Office Visit Pulmonary Medicine [address] [place] [address] Malinda Schroeder APRN.FIELD MARKETING ASSOCIATE [address] [place] [address] NEW LUNG SCREENING Pulmonary Medicine Comment on above: NEW LUNG SCREENING Start: 09-07-2023 End: 09-07-2023 ambulatory 09/07/2023 11:30 AM EDT Results [facility] [address] [place] [address] [facility] Start: 09-04-2023 End: 12-04-2023 Comprehensive metabolic 2000 panel - Serum or Plasma COMPREHENSIVE METABOLIC PANEL Lab Routine Type 2 diabetes mellitus without complication, without long-term current use of insulin (HCC) Expected: 09/04/2023, Expires: 12/04/2023 [facility] Work Phone: Comment on above: Expected: 09/04/2023, Expires: Start: 09-03-2023 End: 09-03-2023 ambulatory 09/03/2023 11:00 AM EDT Results Only [facility] [address] [place] [address] [facility] Start: 08-28-2023 ANNUAL PCP TEAM CHRONIC DISEASE VISIT ANNUAL PCP TEAM CHRONIC DISEASE VISIT [facility] Start: 08-28-2023 BP CONTROLLED (<130/80) BP CONTROLLED (<130/80) [facility] Start: 08-28-2023 Covid-19 Vaccine () Covid-19 Vaccine () [facility] Start: 08-28-2023 Hepatitis B screening URINE ALBUMIN:CREATININE RATIO [facility] Start: 08-28-2023 Mammography [facility] Start: 08-28-2023 Screening for malignant neoplasm of breast Mammogram Screening [facility] Start: 08-27-2023 End: 08-27-2023 ambulatory 08/27/2023 11:00 AM EDT Results Only [facility] [address] [place] [address] [facility] [place] [facility] Start: 08-25-2023 End: 08-25-2023 Patient encounter procedure 08/25/2023 2:40 PM EDT Appointment Mammogram [address] [place] [address] MAMMOGRAM SCREENING Mammogram Comment on above: MAMMOGRAM SCREENING Start: 08-17-2023 End: 11-16-2023 Microalbumin/Creatinin e [Mass Ratio] in Urine ALBUMIN/CREATININE RATIO, URINE Lab Routine Type 2 diabetes mellitus without complication, without long-term current use of insulin (HCC) Expected: 08/17/2023, Expires: 11/16/2023 [facility] Comment on above: Expected: 08/17/2023, Expires: Start: 08-17-2023 End: 08-17-2023 Patient encounter procedure 08/17/2023 1:20 PM EDT Office Visit [facility] ([facility]) [address] [facility] [facility] [address] [place], [place] [id number] Marvel Sam DO [address] [place], [place] [id number] Follow up [facility] ([facility]) Comment on above: Follow up Start: 07-01-2023 BP CONTROLLED (<130/80) BP CONTROLLED (<130/80) [facility] Start: 06-10-2023 BP CONTROLLED (<130/80) BP CONTROLLED (<130/80) [facility] Start: 05-30-2023 Hemoglobin A1c/Hemoglobin.total in Blood HBA1C [facility] Start: 05-23-2023 3 comp foot exam completed DIABETIC FOOT EXAM [facility] Start: 05-23-2023 BP CONTROLLED (<130/80) BP CONTROLLED (<130/80) [facility] Start: 05-23-2023 Diabetic foot examination Diabetic Foot Exam [facility] Start: 05-22-2023 ANNUAL PCP TEAM CHRONIC DISEASE VISIT ANNUAL PCP TEAM CHRONIC DISEASE VISIT [facility] Start: 05-12-2023 BP CONTROLLED (<130/80) BP CONTROLLED (<130/80) [facility] Start: 04-06-2023 Advance Directive Discussion Advance Directive Discussion [facility] Start: 04-06-2023 Behavioral Health Screening Behavioral Health Screening [facility] Start: 03-05-2023 End: 06-04-2023 Hemoglobin A1c in Blood HGB A1C Lab Routine Type 2 diabetes mellitus without complication, without long-term current use of insulin (HCC) Expected: 03/05/2023, Expires: 06/04/2023 [facility] Work Phone: Comment on above: Expected: 03/05/2023, Expires: Start: 2023 Advance Directive Discussion Advance Directive Discussion [facility] Start: 2023 Bone Density Screening Bone Density Screening [facility] Start: 2023 Screening for osteoporosis Bone Density Screening [facility] Start: 02-28-2023 Hemoglobin A1c/Hemoglobin.total in Blood HBA1C [facility] Start: 02-19-2023 ANNUAL PCP TEAM CHRONIC DISEASE VISIT ANNUAL PCP TEAM CHRONIC DISEASE VISIT [facility] Start: 02-19-2023 BP CONTROLLED (<130/80) BP CONTROLLED (<130/80) [facility] Start: 01-24-2023 End: 01-24-2023 [facility] Start: 01-10-2023 Hepatitis C antibody, confirmatory test DILATED RETINAL EXAM [facility] Start: 01-03-2023 ANNUAL PCP TEAM CHRONIC DISEASE VISIT ANNUAL PCP TEAM CHRONIC DISEASE VISIT [facility] Start: 01-03-2023 BP CONTROLLED (<130/80) BP CONTROLLED (<130/80) [facility] Start: 12-23-2022 Hepatitis B surface antibody level LDL CHOLESTEROL [facility] Start: 12-05-2022 Covid-19 Vaccine () Covid-19 Vaccine () [facility] Start: 12-05-2022 Influenza vaccination INFLUENZA (#1) [facility] Start: 11-26-2022 End: 01-26-2023 Hemoglobin A1c in Blood HGB A1C Lab Routine Type 2 diabetes mellitus without complication, without long-term current use of insulin (HCC) Expected: 11/26/2022, Expires: 01/26/2023 [facility] Work Phone: Comment on above: Expected: 11/26/2022, Expires: 3 Start: 10-31-2022 Colonoscopy COLONOSCOPY [facility] Start: 10-31-2022 COLORECTAL CANCER SCREENING COLORECTAL CANCER SCREENING [facility] Start: 10-31-2022 Screening for malignant neoplasm of colon [facility] Start: 09-24-2022 Hemoglobin A1c/Hemoglobin.total in Blood HBA1C [facility] Start: 08-27-2022 End: 10-27-2022 Hemoglobin A1c in Blood HGB A1C Lab Routine Type 2 diabetes mellitus without complication, without long-term current use of insulin (HCC) Expected: 08/27/2022 (Approximate), Expires: 10/27/2022 [facility] Work Phone: Comment on above: Expected: 08/27/2022 (Approximate), Expi res: 10/27/2022 Start: 06-22-2022 Hemoglobin A1c/Hemoglobin.total in Blood HBA1C [facility] Start: 06-09-2022 End: 07-09-2023 Diagnostic mammography computer-aided detcj bi AYANA DIAGNOSTIC BILAT Radiology Routine Encounter for screening mammogram for malignant neoplasm of breast Mass of upper outer quadrant of left breast Expected: 06/09/2022, Expires: 07/09/2023 [facility] Work Phone: Comment on above: Expected: 06/09/2022, Expires: Start: 05-30-2022 Screening for malignant neoplasm of lung Lung Cancer Screening [facility] Start: 04-06-2022 DEPRESSION ASSESSMENT DEPRESSION ASSESSMENT [facility] Start: 03-26-2022 End: 05-26-2022 ALBUMIN/CREAT RATIO RND UR ALBUMIN/CREAT RATIO RND UR Lab Routine Type 2 diabetes mellitus without complication, without long-term current use of insulin (HCC) Expected: 03/26/2022, Expires: 05/26/2022 [facility] Work Phone: Comment on above: Expected: 03/26/2022, Expires: 3 Start: 03-26-2022 End: 05-26-2022 Hemoglobin A1c in Blood HGB A1C Lab Routine Type 2 diabetes mellitus without complication, without long-term current use of insulin (HCC) Expected: 03/26/2022, Expires: 05/26/2022 [facility] Work Phone: Comment on above: Expected: 03/26/2022, Expires: 3 Start: 03-26-2022 End: 05-26-2022 Hepatitis C virus Ab [Presence] in Serum HEP C AB IA W/CONF SCRN Lab Routine Special screening examination for viral disease Expected: 03/26/2022, Expires: 05/26/2022 [facility] Work Phone: Comment on above: Expected: 03/26/2022, Expires: 3 Start: 03-26-2022 End: 05-26-2022 HIV 1+2 Ab [Presence] in Serum or Plasma by Immunoassay HIV 1 2 COMBO(AG/AB),WITH REFLEX TO DIFFERENTIATION Lab Routine Screening for HIV (human immunodeficiency virus) Expected: 03/26/2022, Expires: 05/26/2022 [facility] Work Phone: Comment on above: Expected: 03/26/2022, Expires: 3 Start: 12-11-2021 FUV, Provider: Fanny Olivares, Status: Pen, Time: 9:00 AM FUV, Provider: Fanny Olivares, Status: Fran, Time: 9:00 AM [facility] Work Phone: Start: 12-05-2021 Influenza vaccination INFLUENZA (#1) [facility] Start: 11-29-2021 End: 01-29-2022 CBC W Auto Differential panel - Blood CBC + DIFF Lab Routine Primary hypertension Expected: 11/29/2021, Expires: 01/29/2022 [facility] Work Phone: Comment on above: Expected: 11/29/2021, Expires: 2 Start: 11-29-2021 End: 01-29-2022 Comprehensive metabolic 2000 panel - Serum or Plasma COMP METABOLIC PANEL Lab Routine Primary hypertension Expected: 11/29/2021, Expires: 01/29/2022 [facility] Work Phone: Comment on above: Expected: 11/29/2021, Expires: 2 Start: 11-29-2021 End: 01-29-2022 Hemoglobin A1c in Blood HGB A1C Lab Routine Primary hypertension Expected: 11/29/2021, Expires: 01/29/2022 [facility] Work Phone: Comment on above: Expected: 11/29/2021, Expires: 2 Start: 11-29-2021 End: 01-29-2022 Lipid 1996 panel - Serum or Plasma LIPID PANEL BASIC Lab Routine Primary hypertension Expected: 11/29/2021, Expires: 01/29/2022 [facility] Work Phone: Comment on above: Expected: 11/29/2021, Expires: 2 Start: 11-29-2021 End: 01-29-2022 Thyrotropin [Units/volume] in Serum or Plasma TSH BLD Lab Routine Primary hypertension Expected: 11/29/2021, Expires: 01/29/2022 [facility] Work Phone: Comment on above: Expected: 11/29/2021, Expires: 2 Start: 11-22-2021 NPV, Provider: Alicia Schaffer, Status: Pen, Time: 10:30 AM NPV, Provider: Alicia Schaffer, Status: Pen, Time: 10:30 AM [facility] Work Phone: Start: 11-14-2021 FUV, Provider: Fanny Olivares, Status: Pen, Time: 9:40 AM FUV, Provider: Fanny Olivares, Status: Pen, Time: 9:40 AM [facility] Work Phone: Start: 11-12-2021 FUV, Provider: Fanny Olivares, Status: Pen, Time: 1:00 PM FUV, Provider: Fanny Olivares, Status: Pen, Time: 1:00 PM [facility] Work Phone: Start: 10-31-2021 EGD, Provider: Katy San, Status: Pen, Time: 11:30 AM EGD, Provider: Katy San, Status: Pen, Time: 11:30 AM [facility] Work Phone: Start: 10-29-2021 FUV, Provider: Fanny Olivares, Status: Pen, Time: 4:20 PM FUV, Provider: Fanny Olivares, Status: Pen, Time: 4:20 PM [facility] Work Phone: Start: 10-22-2021 FUV, Provider: Fanny Olivares, Status: Pen, Time: 9:20 AM FUV, Provider: Fanny Olivares, Status: Pen, Time: 9:20 AM [facility] Work Phone: Start: 10-08-2021 FUV, Provider: Fanny Olivares, Status: Pen, Time: 9:00 AM FUV, Provider: Fanny Olivares, Status: Pen, Time: 9:00 AM [facility] Work Phone: Start: 10-02-2021 FUV, Provider: Fanny Olivares, Status: Pen, Time: 9:20 AM FUV, Provider: Fanny Olivares, Status: Pen, Time: 9:20 AM [facility] Work Phone: Start: 09-25-2021 FUV, Provider: MarshallFanny, Status: Pen, Time: 9:40 AM FUV, Provider: MarshallFanny, Status: Pen, Time: 9:40 AM [facility] Work Phone: Start: 09-11-2021 MCRINITIAL, Provider: Fanny Olivares, Status: Pen, Time: 10:20 AM MCRINITIAL, Provider: MarshallFanny, Status: Pen, Time: 10:20 AM [facility] Work Phone: Start: 09-11-2021 FUV, Provider: Fanny Olivares, Status: Pen, Time: 10:00 AM FUV, Provider: Fanny Olivares, Status: Pen, Time: 10:00 AM [facility] Work Phone: Start: 09-11-2021 MCRINITIAL, Provider: Fanny Olivares, Status: Pen, Time: 10:00 AM MCRINITIAL, Provider: Fanny Olivares, Status: Pen, Time: 10:00 AM [facility] Work Phone: Start: 09-05-2021 EGDCOLON, Provider: Katy San, Status: Pen, Time: 9:10 AM EGDCOLON, Provider: Katy San, Status: Pen, Time: 9:10 AM [facility] Work Phone: Start: 09-05-2021 EGDCOLON, Provider: Katy San, Status: Pen, Time: 9:00 AM EGDCOLON, Provider: Katy San, Status: Pen, Time: 9:00 AM [facility] Work Phone: Start: 04-06-2021 DEPRESSION ASSESSMENT DEPRESSION ASSESSMENT [facility] Start: 12-23-2020 COVID-19 VACCINE (3 - Booster for Pfizer series) COVID-19 VACCINE (3 - Booster for Pfizer series) [facility] Start: 09-17-2020 COVID-19 VACCINE (3 - Booster for Pfizer series) COVID-19 VACCINE (3 - Booster for Pfizer series) [facility] Start: 2018 Hepatitis B Vaccine (1 of 3 - Risk 3-dose series) Hepatitis B Vaccine (1 of 3 - Risk 3-dose series) [facility] Start: 2018 RSV Vaccine (1 - 1-dose 60+ series) RSV Vaccine (1 - 1-dose 60+ series) [facility] Start: 2018 RSV Vaccine (1 - Risk 60-74 years 1-dose series) RSV Vaccine (1 - Risk 60-74 years 1-dose series) [facility] Start: 2008 SHINGRIX VACCINE (1 of 2) SHINGRIX VACCINE (1 of 2) [facility] Start: 2003 COLOGUARD (FIT-DNA) COLOGUARD (FIT-DNA) [facility] Start: 2003 Colonoscopy COLONOSCOPY [facility] Start: 2003 COLORECTAL CANCER SCREENING COLORECTAL CANCER SCREENING [facility] Start: [address] COLONOGRAPHY [facility] Start: 2003 DIABETES SCREEN DIABETES SCREEN [facility] Start: 2003 FECAL OCCULT BLOOD FECAL OCCULT BLOOD [facility] Start: 2003 LIPID SCREEN LIPID SCREEN [facility] Start: 2003 Screening for malignant neoplasm of colon [facility] Start: 2003 SIGMOIDOSCOPY SIGMOIDOSCOPY [facility] Start: 1998 Mammography MAMMOGRAM [facility] Start: 1988 HPV TESTING HPV TESTING [facility] Start: 1988 Zoledronic acid therapy Alpha-1 Antitrypsin Deficiency Screening [facility] Start: 1979 PAP TESTING PAP TESTING [facility] Start: 1977 Urine microalbumin profile DTAP,TDAP,TD (1 - Tdap) [facility] Start: 1976 BP Controlled (<130/80) BP Controlled (<130/80) [facility] Start: 1976 HEPATITIS C SCREENING HEPATITIS C SCREENING [facility] Start: 1976 HIV SCREENING HIV SCREENING [facility] Start: 1976 Spirometry Spirometry [facility] Start: 1970 Adult depression screening assessment DEPRESSION SCREENING [facility] Start: 1968 3 comp foot exam completed DIABETIC FOOT EXAM [facility] Start: 1968 Hepatitis B screening URINE ALBUMIN:CREATININE RATIO [facility] Start: 1964 PNEUMOCOCCAL (1 - PCV) PNEUMOCOCCAL (1 - PCV) [facility] End: 02-13-2025 CT Chest for screening WO contrast CT LUNG SCREEN WO IVCON Radiology Routine Smoker Encounter for screening for lung cancer 1 Occurrences starting 01/15/2024 until 02/13/2025 [facility] Comment on above: 1 Occurrences starting 01/15/2024 until 02/13/2025 CT Chest for screeni ng WO contrast CT LUNG SCREEN WO IVCON Radiology Routine Smoker Encounter for screening for lung cancer 01/29/2024 11:16 AM EDT [facility] Work Phone: End: 2025 CT Chest for screening WO contrast CT LUNG SCREEN WO IVCON Radiology Routine Smoker Encounter for screening for malignant neoplasm of lung 1 Occurrences starting 02/02/2024 until 2025 [facility] Work Phone: Comment on above: 1 Occurrences starting 02/02/2024 until 2025 Hemoglobin A1c/Hemoglobin.total in Blood HEMOGLOBIN A1C (POC) Lab Routine Type 2 diabetes mellitus without complication, without long-term current use of insulin (HCC) Ordered: 12/03/2023 [facility] Work Phone: Comment on above: Ordered: 12/03/2023 End: 08-26-2024 LUNG DIFFUSION CAPACITY (DLCO) LUNG DIFFUSION CAPACITY (DLCO) PFT Routine Cigarette nicotine dependence without complication 1 Occurrences starting 07/28/2023 until 08/26/2024 [facility] Comment on above: 1 Occurrences starting 07/28/2023 until 08/26/2024 End: 02-13-2025 LUNG DIFFUSION CAPACITY (DLCO) LUNG DIFFUSION CAPACITY (DLCO) PFT Routine Centrilobular emphysema (HCC) 1 Occurrences starting 01/15/2024 until 02/13/2025 [facility] Comment on above: 1 Occurrences starting 01/15/2024 until 02/13/2025 LUNG DIFFUSION CAPACITY (DLCO) LUNG DIFFUSION CAPACITY (DLCO) PFT Routine Centrilobular emphysema (HCC) 01/29/2024 9:57 AM EDT [facility] Work Phone: End: 09-15-2024 MG Breast Screening AYANA SCREENING Radiology Routine Encounter for screening mammogram for breast cancer 1 Occurrences starting 08/17/2023 until 09/15/2024 [facility] Work Phone: Comment on above: 1 Occurrences starting 08/17/2023 until 09/15/2024 MG Breast Screening AYANA SCREENIN G Radiology Routine Encounter for screening mammogram for breast cancer 08/25/2023 2:23 PM EDT [facility] Work Phone: PAP FLUID CERVICAL SCREENING PAP FLUID CERVICAL SCREENING Lab Routine Encounter for screening for malignant neoplasm of cervix Ordered: 06/09/2022 [facility] Work Phone: Comment on above: Ordered: 06/09/2022 End: 09-03-2023 PAP TITRATION PSG (CPAP, BIPAP, ASV) PAP TITRATION PSG (CPAP, BIPAP, ASV) Procedures Routine KYAW (obstructive sleep apnea) 1 Occurrences starting 08/04/2022 until 09/03/2023 [facility] Work Phone: Comment on above: 1 Occurrences starting 08/04/2022 until 09/03/2023 Patient Education ED Understandi ng Anal Fissures [facility] Work Phone: Patient referral [facility] Work Phone: End: 05-22-2023 Polysomnogram POLYSOMNOGRAM (PSG) Procedures Routine Daytime sleepiness 1 Occurrences starting 05/22/2022 until 05/22/2023 [facility] Work Phone: Comment on above: 1 Occurrences starting 05/22/2022 until 05/22/2023 End: 08-26-2024 SPIROMETRY - BASELINE AND POST DILATOR SPIROMETRY - BASELINE AND POST DILATOR PFT Routine Cigarette nicotine dependence without complication 1 Occurrences starting 07/28/2023 until 08/26/2024 [facility] Work Phone: Comment on above: 1 Occurrences starting 07/28/2023 until 08/26/2024 End: 02-13-2025 SPIROMETRY - BASELINE AND POST DILATOR SPIROMETRY - BASELINE AND POST DILATOR PFT Routine Centrilobular emphysema (HCC) 1 Occurrences starting 01/15/2024 until 02/13/2025 [facility] Work Phone: Comment on above: 1 Occurrences starting 01/15/2024 until 02/13/2025 SPIROMETRY - BASELIN E AND POST DILATOR SPIROMETRY - BASELINE AND POST DILATOR PFT Routine Centrilobular emphysema (HCC) 01/29/2024 9:57 AM EDT [facility] Work Phone: End: 01-01-2025 XR Lumbar spine 3 Views XR LUMBAR GENERAL 3V AP/LAT/L5-S1 Radiology Routine Chronic midline low back pain without sciatica 1 Occurrences starting 12/03/2023 until 01/01/2025 [facility] Comment on above: 1 Occurrences starting 12/03/2023 until 01/01/2025 End: 09-14-2023 XR SHOULDER 3V AP/Y VIEW/AXILLARY RIGHT (AK) XR SHOULDER 3V AP/Y VIEW/AXILLARY RIGHT (AK) Radiology Routine Right shoulder pain, unspecified chronicity 1 Occurrences starting 08/15/2022 until 09/14/2023 [facility] Work Phone: Comment on above: 1 Occurrences starting 08/15/2022 until 09/14/2023 [facility] Immunizations Immunization Date Immunization Notes Care Provider [facility] 04-29-2023 COVID-19 vaccine, ag e 12+ yr, season (PFIZER-BIONTNavegg) Chris Raza MD Work Phone: [facility] 12-16-2022 tetanus toxoid, redu jhonny diphtheria toxoid, and acellular pertussis vaccine, adsorbed Marvel Sam DO Work Phone: [facility] 12-15-2022 influenza virus vaccine, unspecified formulation DR PHILLY BELCHER MD [facility] [place] 12-15-2022 influenza, seasonal, injectable Marvel Sam DO Work Phone: [facility] Work Phone: 12-15-2022 Seasonal, quadrivale nt, recombinant, injectable influenza vaccine, preservative free Chris Raza MD Work Phone: [facility] 12-15-2022 zoster vaccine recombinant Marvel Sam DO Work Phone: [facility] Work Phone: 01-05-2022 COVID-19 booster vaccine, age 12+ yr, bivalent (PFIZER-BIONTECH) Solis Bedoya MD Work Phone: [facility] 01-05-2022 influenza nasal, unspecified formulation Chris Raza MD Work Phone: [facility] 01-05-2022 influenza virus vaccine, unspecified formulation DR PHILLY BELCHER MD [facility] [place] 01-05-2022 influenza, injectabl e, quadrivalent, preservative free Solis Bedoya MD Work Phone: [facility] 01-05-2022 pneumococcal (PCV20) vaccine, 20 valent (PREVNAR 20) Solis Bedoya MD Work Phone: [facility] 01-05-2022 pneumococcal 20-kirt nt conjugate vaccine DR PHILLY BELCHER MD [facility] [place] 07-23-2020 COVID-19 original vaccine, age 12+ yr, monovalent (PFIZER-BIONTECH - PURPLE TOP) Solis Bedoya MD Work Phone: [facility] 06-28-2020 COVID-19 original vaccine, age 12+ yr, monovalent (PFIZER-BIONTECH - PURPLE TOP) Solis Bedoya MD Work Phone: [facility] 04-06-2020 zoster vaccine recombinant Marvel Sam DO Work Phone: [facility] Work Phone: Payers Date Payer Category Payer Medicare [id number] 2024 Self-pay 2023 Medicaid [id number] 2023 Medicare (Managed Care) [id number]. [id number] 2023 Private Health Insurance [id number] 2023 Private Health Insurance [id number] 2023 Private Health Insurance [id number] 2021 Medicare [id number] 2021 Private Health Insurance [id number] 2021 Medicaid [id number] 2021 Medicaid [id number] 2021 Private Health Insurance [employer] [facility] [address] [place] [address] [id number]. [id number] 04-06-2021 Unknown 1958 Unknown [id number] 2.840.1.273446.3.579.2. 356 1958 Unknown [id number] 2.840.1.926774.3.579.2. 356 1958 Unknown [id number] 2.0.1.600939.3.579.2. 356 1958 Unknown [id number] 2.16.840.1.418811.3.579.2. 356 1958 Unknown [id number] 2.16.840.1.441151.3.579.2. 356 1958 Unknown [id number] 2.16.840.1.269029.3.579.2. 356 1958 Unknown [id number] 2.16.840.1.653907.3.579.2. 356 1958 Unknown [id number] 2.16.840.1.233702.3.579.2. 356 1958 Unknown [id number] 2.16.840.1.847689.3.579.2. 903 1958 Unknown [id number] 2.16.840.1.720985.3.579.2. 1068 1958 Unknown [id number] 2.16.840.1.370543.3.579.2. 106 1958 Unknown [id number] 2.16.840.1.406521.3.579.2. 106 1958 Unknown [id number] 2.16.840.1.051405.3.579.2. 1069 1958 Unknown [id number] 2.16.840.1.409659.3.579.2. 106 1958 Unknown [id number] 2.16.840.1.700054.3.579.2. 106 1958 Unknown [id number] 2.16.840.1.605562.3.579.2. 627 1958 Unknown [id number] 2.16.840.1.949924.3.579.2. 627 1958 Unknown [id number] 2.16.840.1.830393.3.579.2. 627 1958 Unknown [id number] 2.16.840.1.949972.3.579.2. 627 1958 Unknown [id number] 2..840.1.315004.3.579.2. 627 1958 Unknown [id number] 2.16.840.1.696549.3.579.2. 627 Private Health Insurance [id number] Private Health Insurance [id number] Unknown [id number] 2.840.1.013195.3.579.2. 462 Unknown [id number] 2.840.1.613120.3.579.2. 462 Unknown [id number] 2.840.1.942355.3.579.2. 462 Unknown [id number] 2.840.1.721289.3.579.2. 462 Unknown [id number] 2.840.1.217365.3.579.2. 462 Unknown [id number] 2.840.1.033928.3.579.2. 462 Unknown [id number] 2.840.1.784383.3.579.2. 462 Unknown [id number] 2.840.1.444291.3.579.2. 462 Unknown [id number] 2.840.1.028937.3.579.2. 462 Unknown [id number] 2.840.1.398664.3.579.2. 462 Unknown [id number] 2.840.1.017387.3.579.2. 462 Unknown [id number] 2.840.1.302630.3.579.2. 462 Unknown [id number] 2.16840.1.467526.3.579.2. 462 Unknown [id number] 2.840.1.469637.3.579.2. 462 Unknown [id number] 2.840.1.546558.3.579.2. 462 Unknown [id number] 2.16.840.1.998271.3.579.2. 462 Social History Date Type Detail Facility Start: 01-03-2022 End: 03-05-2023 Current every day smoker Current every day smoker [facility] Work Phone: Start: 01-24-2023 Tobacco smoking stat us NDIS Tobacco smoking consumption unknown [facility] Work Phone: Start: 1960 Sex Assigned At Not on file [facility] Start: 11-19-2021 End: 02-19-2022 Exposure to SARS-CoV-2 (event) Not sure [facility] Start: 1973 End: 01-15-2024 Tobacco smoking status NHIS Smokes tobacco daily [facility] Start: 1973 History of tobacco use Cigarette Smo ker [facility] Start: 01-03-2022 End: 01-15-2024 Tobacco use and exposure Smokeless tobacco non-user [facility] Start: 01-03-2022 End: 07-12-2024 Alcohol intake Ex-drinker (finding) [facility] Start: 09-15-2022 End: 03-05-2023 Tobacco use panel [facility] Work Phone: Adult Depression Screening Assessment 0 [facility] Work Phone: Start: 1960 Sex Assigned At Female W [facility] Start: 02-16-2023 Tobacco smoking status Heavy t obacco smoker (finding) [facility] Start: 01-15-2024 Tobacco Comment Start Age 13, Quit Age: N/A, Average packs per day 1, Pack Years 48 [facility] Medical Equipment Procedure Code Equipment Code Equipment Origin al Text Equipment Identifier Dates Start: 01-03-2022 End: 04-29-2023 Comment on above: 1 Container as neede d (For disposal of insulin needles, lancets, and other sharp objects) for up to 1 day. Use with blood gluco se test 2 times daily, Insulin Dep? No Use with blood gluco se test 2 times daily. Insulin Dep? No twice daily. Functional Status Date Assessment Result Facility 02-24-2023 Functional Status Up to Chair Si tting on edge of bed [facility] 02-24-2023 Functional Status Independent [facility] 02-24-2023 Functional Status Room check performed [facility] 02-24-2023 Functional Status [facility] 02-24-2023 Functional Status [facility] 02-24-2023 Functional Status [facility] 02-23-2023 Functional Status 11pm-7am [facility] 02-23-2023 Functional Status [facility] 02-23-2023 Functional Status [facility] 02-23-2023 Functional Status Patient Identi fied Identification band, Verbal [facility] 02-23-2023 Functional Status Maintained [facility] 02-16-2023 Functional Status Sensory Deficits None A [facility] 08-08-2021 PHQ-9 [id number] Mild (5-9) [facility] Work Phone: Mental Status Date Assessment Result Facility 02-24-2023 Mental Status Orientation Oriented x 4 [facility] 02[facility]23[facility]23 [facility] 02-23-2023 Mental Status [facility] 01-24-2023 Cognitive function Level Of Cons ciousness Awake;Alert;Appropriate;Follow s Commands [facility] Work Phone: Clinical Notes 09-05-2021 to 08-17-2024 Telephone Encounter - Glen Ashley LPN - 08/17/2024 2:07 PM EDTTelephone Encounter - Glen Ashley LPN - 08/17/2024 2:07 PM EDTPatient Nadeem See MD - 08/05/2024 1:10 PM EDT Note Date & Type Note Facility 08-17-2024 Telephone encounter Note Last Office Visit Date: 12/03/2023 Last Distance Health Visit: Visit date not found Has the patient had an appointment at [facility] in the past year, or do they have an upcoming appointment scheduled at [facility]? YES- Continue with refill request. Future Appointment: Visit date not found Pharmacy faxed requesting the following refill Refill(s) Requested: Requested Prescriptions Pending Prescriptions Disp Refills TRELEGY ELLIPTA 100-62.5-25 mcg inhalation powder 60 each 1 Sig: Inhale 1 puff as instructed once daily. ALLERGIES Allergen Reactions Hydrocodone Vomiting Naproxen Anaphylaxis Sulfa (Sulfonamide * Other: See Comments, Rash Tramadol Hives, Rash Trazodone Hives, Rash (home) [phone] (cell) The patients preferred pharmacy has been captured for this encounter? yes Request is for script(s) to be escript to pharmacy. Glen Ashley LPN [facility] 08-17-2024 Miscellaneous Notes Last Office Visit Date: 12/03/2023 Last [facility] Health Visit: Visit date not found Has the patient had an appointment at [facility] in the past year, or do they have an upcoming appointment scheduled at [facility]? YES- Continue with refill request. Future Appointment: Visit date not found Pharmacy faxed requesting the following refill Refill(s) Requested: Requested Prescriptions Pending Prescriptions Disp Refills TRELEGY ELLIPTA 100-62.5-25 mcg inhalation powder 60 each 1 Sig: Inhale 1 puff as instructed once daily. ALLERGIES Allergen Reactions Hydrocodone Vomiting Naproxen Anaphylaxis Sulfa (Sulfonamide * Other: See Comments, Rash Tramadol Hives, Rash Trazodone Hives, Rash (home) [phone] (cell) The patients preferred pharmacy has been captured for this encounter? yes Request is for script(s) to be escript to pharmacy. Glen Ashley LPN documented in this encounter [facility] 08-05-2024 Nadeem Green MD - 08/05/2024 1:17 PM EDT If you have any questions please contact our office at [phone]. After office hours or on the weekend, please call Dr. Otero on his cell phone at [phone]. documented in this encounter [facility] 08-05-2024 Note HNO ID: [id number] Author: NADEEM OTERO MD Service: ? Author Type: Physician Type: Progress Notes Filed: 08/05/2024 13:50 Note Text: ASSESSMENT/PLAN: 1. 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 Huerta Family History: Patient denies Trauma: Patient denies Steroid Use: Albuterol inhaler ASA/Anti-coagulation: No Prior Glaucoma Meds, Intolerances, Allergies: N/A MOST RECENT GLAUCOMA TESTING: Visual Field 24-2: Right Eye: No scotoma, Left Eye: Arcuate defect OCT RNFL: Right Eye: 87, Left Eye: 89 GONIO: MERVIN Grade 0-1 angles , PTM grade 2 angles Both Eyes. 2. Optic cupping of both eyes - ICD9: 377.14, ICD10: H47.233 Monitor 3. Combined forms of age-related cataract of both eyes - ICD9: 366.19, ICD10: H25.813 Not visually significant Both Eyes. 4. Hyperopia, bilateral - ICD9: 367.0, ICD10: H52.03 Monitor I have confirmed and edited as necessary the relevant HPI, ophthalmic history, ROS, and the neuro exam findings as obtained by others. I have seen and examined Aurelio Bhakta. I have discussed the case and the management of this patient's care with the Resident/Fellow, if applicable. I also have reviewed and agree with the assessment and plan as stated above and agree with all of its relevant components. [facility] 08-05-2024 History of Present illness Narrative ASSESSMENT/PLAN: 1. 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 Huerta Family History: Patient denies Trauma: Patient denies Steroid Use: Albuterol inhaler ASA/Anti-coagulation: No Prior Glaucoma Meds, Intolerances, Allergies: N/A MOST RECENT GLAUCOMA TESTING: Visual Field 24-2: Right Eye: No scotoma, Left Eye: Arcuate defect OCT RNFL: Right Eye: 87, Left Eye: 89 GONIO: MERVIN Grade 0-1 angles , PTM grade 2 angles Both Eyes. 2. Optic cupping of both eyes - ICD9: 377.14, ICD10: H47.233 Monitor 3. Combined forms of age-related cataract of both eyes - ICD9: 366.19, ICD10: H25.813 Not visually significant Both Eyes. 4. Hyperopia, bilateral - ICD9: 367.0, ICD10: H52.03 Monitor I have confirmed and edited as necessary the relevant HPI, ophthalmic history, ROS, and the neuro exam findings as obtained by others. I have seen and examined Aurelio Bhakta. I have discussed the case and the management of this patient's care with the Resident/Fellow, if applicable. I also have reviewed and agree with the assessment and plan as stated above and agree with all of its relevant components. documented in this encounter [facility] 07-13-2024 Progress note Formatting of t his note might be different from the original. To be addressed by ordering provider. Shruthi Dolan MD [facility] 07-13-2024 Miscellaneous Notes To be addressed by ordering provider. Shruthi Dolan MD documented in this encounter [facility] 07-12-2024 Note HNO ID: [id number] Author: ADELINE HUERTA, JUAN Service: ? Author Type: BEAMSTER Type: Progress Notes Filed: 07/12/2024 15:15 Note Text: 1. 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 tOero in 1 month and consider treatment at that time if repeatable 2. Combined forms of age-related cataract of both eyes Mild- continue to observe 3. Regular astigmatism, bilateral 4. Presbyopia Finalized spec rx 5. Dry eye syndrome of bilateral lacrimal glands Continue gel 2x daily and artificial tears 3-4x daily 6. Type 2 diabetes mellitus without retinopathy (HCC) No previous retinopathy Encouraged to maintain BS control Follow-up in [address] Otero for repeat 24-2, IOP and further glaucoma evaluation Me as needed or for yearly comprehensive Adeline Huerta OD July 12, 2024 3:08 PM [facility] 07-12-2024 History of Present illness Narrative 1. 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 Otero in 1 month and consider treatment at that time if repeatable 2. Combined forms of age-related cataract of both eyes Mild- continue to observe 3. Regular astigmatism, bilateral 4. Presbyopia Finalized spec rx 5. Dry eye syndrome of bilateral lacrimal glands Continue gel 2x daily and artificial tears 3-4x daily 6. Type 2 diabetes mellitus without retinopathy (HCC) No previous retinopathy Encouraged to maintain BS control Follow-up in [address] Otero for repeat 24-2, IOP and further glaucoma evaluation Me as needed or for yearly comprehensive Adeline Huetra OD July 12, 2024 3:08 PM documented in this encounter [facility] 07-12-2024 Note Date of Procedure 07/12/2024. 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 Reliability Right Eye Good. Left Eye Good. Interpretation Right Eye Nasal step defect, Arcuate defect. Left Eye Arcuate defect. Interval Change Right Eye Initial. Left Eye Initial. [facility] 06-06-2024 Telephone encounter Note [facility] 07/28/23 Patient phones requesting refills as follows: Requested Prescriptions Pending Prescriptions Disp Refills varenicline (CHANTIX) 1 mg tablet [Pharmacy Med Name: Varenicline Tartrate 1 MG Oral Tablet] 112 tablet 0 Sig: TAKE 1 TABLET BY MOUTH TWICE DAILY AT 9AM AND 5PM Please review and advise. Elizabeth Christiansen LPN [facility] 06-06-2024 Miscellaneous Notes [facility] 07/28/23 Patient phones requesting refills as follows: Requested Prescriptions Pending Prescriptions Disp Refills varenicline (CHANTIX) 1 mg tablet [Pharmacy Med Name: Varenicline Tartrate 1 MG Oral Tablet] 112 tablet 0 Sig: TAKE 1 TABLET BY MOUTH TWICE DAILY AT 9AM AND 5PM Please review and advise. Elizabeth Christiansen LPN documented in this encounter [facility] 05-16-2024 Telephone encounter Note Last Office Visit Date: 12/03/2023 Last Distance Health Visit: Visit date not found Has the patient had an appointment at [facility] in the past year, or do they have an upcoming appointment scheduled at [facility]? YES- Continue with refill request. Future Appointment: Visit date not found Pharmacy faxed requesting the following refill Refill(s) Requested: Requested Prescriptions Pending Prescriptions Disp Refills TRELEGY ELLIPTA 100-62.5-25 mcg inhalation powder 60 Each 1 Sig: Inhale 1 Puff as instructed once daily. ALLERGIES Allergen Reactions Hydrocodone Vomiting Naproxen Anaphylaxis Sulfa (Sulfonamide * Other: See Comments, Rash Tramadol Hives, Rash Trazodone Hives, Rash (home) [phone] (cell) The patients preferred pharmacy has been captured for this encounter? yes Request is for script(s) to be escript to pharmacy. Amada Archer LPN [facility] 05-16-2024 Miscellaneous Notes Last Office Visit Date: 12/03/2023 Last [facility] Health Visit: Visit date not found Has the patient had an appointment at [facility] in the past year, or do they have an upcoming appointment scheduled at [facility]? YES- Continue with refill request. Future Appointment: Visit date not found Pharmacy faxed requesting the following refill Refill(s) Requested: Requested Prescriptions Pending Prescriptions Disp Refills TRELEGY ELLIPTA 100-62.5-25 mcg inhalation powder 60 Each 1 Sig: Inhale 1 Puff as instructed once daily. ALLERGIES Allergen Reactions Hydrocodone Vomiting Naproxen Anaphylaxis Sulfa (Sulfonamide * Other: See Comments, Rash Tramadol Hives, Rash Trazodone Hives, Rash (home) [phone] (cell) The patients preferred pharmacy has been captured for this encounter? yes Request is for script(s) to be escript to pharmacy. Amada Archer LPN documented in this encounter [facility] 04-18-2024 Note HNO ID: [id number] Author: KENIA THAO PA-C Service: ? Author Type: Physician Electrical Discharge Machine Operator Type: Progress Notes Filed: 04/18/2024 11:36 Note Text: Large Joint Arthro/Inj: R knee joint Informed Consent Consent Obtained: Verbal [place] Protocol A moment to CARE was completed. SIGN IN Sign in communication not applicable due to emergent procedure. Personnel directly involved with the procedure wore the appropriate PPE. Special Equipment: N/A Patient/Surrogate Stated/Verified: Patient name, Date of , Relevant allergies and Intended procedure TIME OUT Relevant labs, photos, and/or imaging studies have been reviewed. Intended patient and procedure match the source document(s). Consent documented and matches the intended procedure. Correct side/site marked and visible. Medications required for procedure verified. No fire risk assessment and interventions applicable. No implant(s) inserted.04/18/2024 11:35 AM The procedure site was prepped in the usual sterile fashion. Site: R knee joint Medications: 6 mg betamethasone acetate-betamethasone sodium phosphate 6 mg/mL Anesthetics: 5 mL lidocaine (PF) 10 mg/mL (1 %) Outcome: Tolerated well, no immediate complications Post-injection instructions were reviewed with the patient and the patient voiced understanding of these instructions. SIGN OUT No specimen collected. All instruments, equipment, possible retained foreign bodies accounted for. Post-procedure follow-up management communicated and Plan of Care Visit completed when applicable [facility] 04-18-2024 History of Present illness Narrative Associated Order(s): Large Joint Arthro/Inj: R knee joint Post-Procedure Diagnose(s): Primary osteoarthritis of right knee Large Joint Arthro/Inj: R knee joint Informed Consent Consent Obtained: Verbal [place] Protocol A moment to CARE was completed. SIGN IN Sign in communication not applicable due to emergent procedure. Personnel directly involved with the procedure wore the appropriate PPE. Special Equipment: N/A Patient/Surrogate Stated/Verified: Patient name, Date of , Relevant allergies and Intended procedure TIME OUT Relevant labs, photos, and/or imaging studies have been reviewed. Intended patient and procedure match the source document(s). Consent documented and matches the intended procedure. Correct side/site marked and visible. Medications required for procedure verified. No fire risk assessment and interventions applicable. No implant(s) inserted.04/18/2024 11:35 AM The procedure site was prepped in the usual sterile fashion. Site: R knee joint Medications: 6 mg betamethasone acetate-betamethasone sodium phosphate 6 mg/mL Anesthetics: 5 mL lidocaine (PF) 10 mg/mL (1 %) Outcome: Tolerated well, no immediate complications Post-injection instructions were reviewed with the patient and the patient voiced understanding of these instructions. SIGN OUT No specimen collected. All instruments, equipment, possible retained foreign bodies accounted for. Post-procedure follow-up management communicated and Plan of Care Visit completed when applicable AMB ROOMING INTAKE FLOWSHEET DATA Pain Pain Level: 3 Pain Location: Knee-Right Description: Sore Duration Units: Months Frequency: Intermittent Intervention/Comfort measure: Relaxation, Reposition, Medication Patient presents with: Right Knee - Established Patient, Injections: 15 weeks post injection Madalyn Castro LPN documented in this encounter [facility] 04-18-2024 Note HNO ID: [id number] Author: MADALYN CASTRO LPN Service: ? Author Type: LICENSED NURSE Type: Progress Notes Filed: 04/18/2024 11:36 Note Text: AMB ROOMING INTAKE FLOWSHEET DATA Pain Pain Level: 3 Pain Location: Knee-Right Description: Sore Duration Units: Months Frequency: Intermittent Intervention/Comfort measure: Relaxation, Reposition, Medication Patient presents with: Right Knee - Established Patient, Injections: 15 weeks post injection Madalyn Castro LPN [facility] 03-07-2024 Telephone encounter Note Last Office Visit Date: 12/03/2023 Last [facility] Health Visit: Visit date not found Has the patient had an appointment at [facility] in the past year, or do they have an upcoming appointment scheduled at [facility]? YES- Continue with refill request. Future Appointment: Visit date not found Pharmacy faxed requesting the following refill Refill(s) Requested: Requested Prescriptions Pending Prescriptions Disp Refills semaglutide (OZEMPIC) 0.25 mg or 0.5 mg (2 mg/3 mL) pen 3 mL 1 Sig: Inject 0.25 mg subcutaneously one time a week. TRELEGY ELLIPTA 100-62.5-25 mcg inhalation powder 60 Each 1 Sig: Inhale 1 Puff as instructed once daily. ALLERGIES Allergen Reactions Hydrocodone Vomiting Naproxen Anaphylaxis Sulfa (Sulfonamide * Other: See Comments, Rash Tramadol Hives, Rash Trazodone Hives, Rash (home) [phone] (cell) The patients preferred pharmacy has been captured for this encounter? yes Request is for script(s) to be escript to pharmacy. Gia Ayon LPN [facility] 03-07-2024 Miscellaneous Notes Last Office Visit Date: 12/03/2023 Last [facility] Health Visit: Visit date not found Has the patient had an appointment at [facility] in the past year, or do they have an upcoming appointment scheduled at [facility]? YES- Continue with refill request. Future Appointment: Visit date not found Pharmacy faxed requesting the following refill Refill(s) Requested: Requested Prescriptions Pending Prescriptions Disp Refills semaglutide (OZEMPIC) 0.25 mg or 0.5 mg (2 mg/3 mL) pen 3 mL 1 Sig: Inject 0.25 mg subcutaneously one time a week. TRELEGY ELLIPTA 100-62.5-25 mcg inhalation powder 60 Each 1 Sig: Inhale 1 Puff as instructed once daily. ALLERGIES Allergen Reactions Hydrocodone Vomiting Naproxen Anaphylaxis Sulfa (Sulfonamide * Other: See Comments, Rash Tramadol Hives, Rash Trazodone Hives, Rash (home) [phone] (cell) The patients preferred pharmacy has been captured for this encounter? yes Request is for script(s) to be escript to pharmacy. Gia Ayon LPN documented in this encounter [facility] 01-29-2024 History of Present illness Narrative Radiology Service Progress Note PATIENT NAME: Aurelio Bhakta DATE OF SERVICE: January 29, 2024 TIME: 4:07 PM PATIENT IDENTITY VERIFICATION COMPLETED USING TWO (2) IDENTIFIERS: Name and Date of confirmed by patient verbally. FALL SCREENING: Has the patient had 2 falls in the last year or 1 fall with injury or currently using an Ambulatory Assistive Device (Walker, Cane, Wheelchair, Crutches, etc.)? No PATIENT GENDER DATA: Female. status: : No status: NO. PATIENT RELEVANT IMPLANT DATA REVIEWED: Yes PATIENT PRESENTS WITH AN IMPLANTABLE OR ATTACHED BEAN PICKER: No RADIOLOGY DEPARTMENT: CT; Exam(s) Completed: Lung Screening PERIPHERAL IV DATA: Not applicable SIGNED BY: RT Brenda(R) January 29, 2024 4:07 PM documented in this encounter [facility] 01-29-2024 Note HNO ID: [id number] Author: JACQUELYN GARCIA RT(R) Service: ? Author Type: Foreign Diplomat Type: Progress Notes Filed: 01/29/2024 16:07 Note Text: Radiology Service Progress Note PATIENT NAME: Aurelio Bhakta DATE OF SERVICE: January 29, 2024 TIME: 4:07 PM PATIENT IDENTITY VERIFICATION COMPLETED USING TWO (2) IDENTIFIERS: Name and Date of confirmed by patient verbally. FALL SCREENING: Has the patient had 2 falls in the last year or 1 fall with injury or currently using an Ambulatory Assistive Device (Walker, Cane, Wheelchair, Crutches, etc.)? No PATIENT GENDER DATA: Female. status: : No status: NO. PATIENT RELEVANT IMPLANT DATA REVIEWED: Yes PATIENT PRESENTS WITH AN IMPLANTABLE OR ATTACHED BEAN PICKER: No RADIOLOGY DEPARTMENT: CT; Exam(s) Completed: Lung Screening PERIPHERAL IV DATA: Not applicable SIGNED BY: RT Brenda(Ophelia) January 29, 2024 4:07 PM [facility] 01-29-2024 Note HNO ID: [id number] Author: ANITA KRAUS RPFT Service: ? Author Type: Respiratory Therapist Type: Progress Notes Filed: 01/29/2024 10:35 Note Text: PULM FUNCTION: Provider: Almas Cordero APRN.FIELD MARKETING ASSOCIATE Assisting Tech: PetAnita hernandez, RPFT Spirometry w/BD: 1 DLCO: 1 [facility] 01-29-2024 History of Present illness Narrative PULM FUNCTION: Provider: Almas Cordero APRN.FIELD MARKETING ASSOCIATE Assisting Tech: PetHina hernandezsea, RPFT Spirometry w/BD: 1 DLCO: 1 documented in this encounter [facility] 01-21-2024 Telephone encounter Note Patient lab results for the last 6 months faxed to the [facility] office per patient request at [phone]. Jagdeep Orozco Maintenance Engineer [employer] January 21, 2024 3:06 PM [facility] 01-21-2024 Miscellaneous Notes Patient lab results for the last 6 months faxed to the [facility] office per patient request at [phone]. Jagdeep Orozco Maintenance Engineer [employer] January 21, 2024 3:06 PM documented in this encounter [facility] 01-20-2024 Telephone encounter Note Last Office Visit Date: 12/03/2023 Last Distance Health Visit: Visit date not found Has the patient had an appointment at [facility] in the past year, or do they have an upcoming appointment scheduled at [facility]? YES- Continue with refill request. Future Appointment: Visit date not found Pharmacy faxed requesting the following refill Refill(s) Requested: Requested Prescriptions Pending Prescriptions Disp Refills hydrOXYzine HCl (ATARAX) 50 mg tablet Sig: Take 1 tablet by mouth four times a day as needed. ALLERGIES Allergen Reactions Hydrocodone Vomiting Naproxen Anaphylaxis Sulfa (Sulfonamide * Other: See Comments, Rash Tramadol Hives, Rash Trazodone Hives, Rash (home) [phone] (cell) The patients preferred pharmacy has been captured for this encounter? yes Request is for script(s) to be escript to pharmacy. Apple Tam LPN [facility] 01-20-2024 Miscellaneous Notes Last Office Visit Date: 12/03/2023 Last Distance Health Visit: Visit date not found Has the patient had an appointment at [facility] in the past year, or do they have an upcoming appointment scheduled at [facility]? YES- Continue with refill request. Future Appointment: Visit date not found Pharmacy faxed requesting the following refill Refill(s) Requested: Requested Prescriptions Pending Prescriptions Disp Refills hydrOXYzine HCl (ATARAX) 50 mg tablet Sig: Take 1 tablet by mouth four times a day as needed. ALLERGIES Allergen Reactions Hydrocodone Vomiting Naproxen Anaphylaxis Sulfa (Sulfonamide * Other: See Comments, Rash Tramadol Hives, Rash Trazodone Hives, Rash (home) [phone] (cell) The patients preferred pharmacy has been captured for this encounter? yes Request is for script(s) to be escript to pharmacy. Apple Tam LPN documented in this encounter [facility] 01-15-2024 Instructions Almas Cordero APRN.[employer]ETING [employer]ATE - 01/15/2024 10:34 AM EDT Images from the original note were not included. Cigarette Logs : Record every single smoked cigarette on a cigarette log (either on their smartphone or with paper and pencil) contiguous to the smoking. Logging your smoked cigarettes in real-time (while smoking) helps quantify consumption accurately and helps you and your act of smoking become more mindful versus automatically, habitually without thought or cognizance. You can't change something if you can't measure the change. We discussed behavioral modification methods in order to unpair certain habits of smoking with specific activities and to help wean down the patient's smoking over time in order to minimize withdrawal effects of reduction in nicotine intake. Patient was instructed to smoke every hour on the hour during waking hours and not pair the cigarette with a normal activity such as coffee or driving as he or she normally would have. Patient was instructed to do this for a week and then cut back to smoking one cigarette every other hour for the second week, then cut back to smoking a cigarette every third hour on the third week, and quit on week 4. I instructed patient when starting this method to not smoke any more cigarettes than they normally would have smoked in a day and if they smoke less than 20 cigarettes per day to set those cigarettes out ahead of time and space them out evenly throughout the day to ensure they aren't increasing their cigarette consumption. Oral Substitutes/Hydration Drinking water is a superb coping technique. Snacking on crunchy, nutrient dense, low calorie foods such as chopped peppers, celery, or carrots can be extremely helpful. Using cinnamon sticks, plastic straws, and sugarless gum/ candy are also excellent oral substitutes. Phone [phone] ([phone]) as additional resource. CT Lung Screen Results The CT scan that you will have done today will show if you have any nodules (small spots) in your lungs that are suspicious for cancer. Around 90% of the patients who have this scan done are found to have at least one nodule. Most nodules are benign (not cancer) and of no harm to you at all. A specialist will make a scientific evaluation about whether or not a nodule is worrisome based on its size and shape. The radiologist who will read your scan will put it into one of four categories: LUNG-RADS Category Description Overall Probability of Malignancy Recommended Follow-Up 1 Negative No nodules and definitely benign (non-cancerous nodules) Essentially 0. 1 Year - Follow-up Low dose CT 2 Benign Appearance or Behavior Nodules with a very low likelihood of becoming cancer due to size or lack of growth Less than 1% 1 Year - Follow-up Low dose CT 3 Probably Benign Probably benign finding, short term follow-up recommended 1 to 2% 6 Months - Follow-up Low dose CT 4 Suspicious Findings for which additional diagnostic testing and/or biopsy is recommended Will be calculated based on nodule characteristics. Dependent on what is seen on the exam. At times, we may see something outside of the lungs on the scan that could be a health concern. Below are some of the most common findings: S Clinically Significant or Potentially Clinically Significant Findings (non lung cancer) Referral or additional imaging/labs depending on result. Approximately 10% of people receive this result. Coronary Artery Calcifications (Moderate or Severe) - Referral to cardiology for further work-up and recommendations. Thyroid Nodule - TSH level and Thyroid Ultrasound dependent on size, referral to endocrinology. Adrenal Nodule - Blood work and referral to endocrinology. Others Lung Cancer Screening Scheduling: [place] [phone], [place] [phone]. And Other locations Billing Questions: or [email or web address] Specialist Providers: (Chhaya Muse CNP; Almas Cordero CNP; Jacquelyn Bull CNP; Liz Paz CNP; Kanika Lopez PA-C; Oanh Garcia PA-C; Oksana Villafuerte CNP, Rama Patino CNP, Shayla Gutiérrez CNP & Lizett Castorena PA-C): [phone] documented in this encounter [facility] 01-15-2024 Note HNO ID: [id number] Author: ALMAS CORDERO APRN.CNP Service: ? Author Type: Nurse Practitioner Type: Progress Notes Filed: 01/15/2024 15:42 Note Text: Chief Complaint: Here today to follow up since last initial LCS visit done 09/2023. History of Present Illness: Aurelio Bhakta is a 63 year old female who is presenting today for to follow up since last initial LCS visit 09/2023. Patient has a PMH significant for DM II, morbid obesity. Stated she was not explained thoroughly during the the last LCS visit. she is comfortable to follow up at [facility]. Patient is a active smoker with a 50 pack year history. Currently still smoking 20 daily. Also smokes due to anxiety. Since the patient's last visit the patient has not had new medical issues or hospitalizations. No recent respiratory infections/pneumonia. Modified Medical Research [place] Dyspnea Scale (MMRC) I get short of breath when hurrying on level ground or walking up a slight hill 1 Patient's appetite and weight is stable. Respiratory symptoms include. Unintentional weight loss: No Sinus drainage: No SOB: Yes with strenuous activities Chest tightness: No Coughing: With mucus: Clear and Thick Hemoptysis: No Fever/Chills: No Wheezing: Yes on daily Trelegy HFA, prn albuterol HFA. Initiated by PCP. Medication Treatment: Are you using regular inhalers?: Yes History of respiratory exposures include: Occupational: None Environmental:None Past Medical History: PAST MEDICAL HISTORY Diagnosis Date Anxiety state COPD (chronic obstructive pulmonary disease) (HCC) Elevated cholesterol Essential hypertension Prediabetes Surgical Hx: PAST SURGICAL HISTORY Procedure Laterality Date >=3 1989 2 C-Sections REPAIR ROTATOR CUFF,ACUTE 2020 Family Hx: FAMILY HISTORY Problem Relation Age of Onset Cataract Mother Hypertension Mother Hypertension Sister Diabetes Sister Macular Degen Sister Detached Retina Sister Cataract Sister Cataract Maternal Grandmother Glaucoma No Family History Allergies: ALLERGIES Allergen Reactions Hydrocodone Vomiting Naproxen Anaphylaxis Sulfa (Sulfonamide * Other: See Comments, Rash Tramadol Hives, Rash Trazodone Hives, Rash Social History Tobacco Use: Types: Cigarettes Review Of Systems: See HPI for ROS All of the remainder systems were reviewed and negative. PHYSICAL EXAMINATION: BP 95/62 Pulse 71 Temp (Src) 96.9 (Temporal Artery) Resp 20 Ht 5' 4.5 (1.64m) Wt 187 lb (84.8kg) SpO2 96% BMI 31.61 kg/(m2). Deferred Data Review I have visually reviewed imaging and testing below CT imaging done today was reviewed independently by practitioner and awaiting radiology review. LDCT 05/30/2021 - images in epic Prior PFTS: No textual results found for the specified procedure(s). Assessment and Plan: 1. Smoker SMOKING CESSATION COUNSELING Smoking cessation methods including Nicotine Replacement Therapies and Behavior Modification were discussed with the patient and assistance offered. The medical conditions adversely affected by cigarette use include:Emphysema. The patient is currently not ready to quit. I personally spent 3 minutes in counseling. The time spent in smoking cessation counseling is exclusive of any other counseling during this visit. Advised to set a quit date. Discussed NRTs nicotine lozenges/nicotine patch, side effects, dosage and administration. Cigarette Logs : Record every single smoked cigarette on a cigarette log (either on their smartphone or with paper and pencil) contiguous to the smoking. Logging your smoked cigarettes in real-time (while smoking) helps quantify consumption accurately and helps you and your act of smoking become more mindful versus automatically, habitually without thought or cognizance. You can't change something if you can't measure the change. Oral Substitutes/Hydration Drinking water is a superb coping technique. Snacking on crunchy, nutrient dense, low calorie foods such as chopped peppers, celery, or carrots can be extremely helpful. Using cinnamon sticks, plastic straws, and sugarless gum/ candy are also excellent oral substitutes. Phone [phone] ([phone]) as additional resource. 2. Centrilobular emphysema (HCC) Evident on Ldct images 05/2021 Recommended PFT - SPIROMETRY - BASELINE AND POST DILATOR; Future - LUNG DIFFUSION CAPACITY (DLCO); Future -Currently in Continue Trelegy ellipta daily. Rinse/gargle mouth after each use to prevent oral thrush. - Continue Albuterol HFA inhaler, 2 inhalations 10-15 minutes prior to activities associated with shortness of breath, and as needed for rescue relief of shortness of breath, cough or wheezing, up to 4 times daily as needed. - previously evaluated with general pulm. 3. Encounter for screening for lung cancer Discussed in detail risk and benefits of LCS. Comprehends and agreeable with proceeding with L (more content not included)... [facility] 01-15-2024 History of Present illness Narrative Images from the original note were not included. Chief Complaint: Here today to follow up since last initial LCS visit done 09/2023. History of Present Illness: Aurelio Bhakta is a 63 year old female who is presenting today for to follow up since last initial LCS visit 09/2023. Patient has a PMH significant for DM II, morbid obesity. Stated she was not explained thoroughly during the the last LCS visit. she is comfortable to follow up at [facility]. Patient is a active smoker with a 50 pack year history. Currently still smoking 20 daily. Also smokes due to anxiety. Since the patient's last visit the patient has not had new medical issues or hospitalizations. No recent respiratory infections/pneumonia. Modified Medical Research [place] Dyspnea Scale (MMRC) I get short of breath when hurrying on level ground or walking up a slight hill 1 Patient's appetite and weight is stable. Respiratory symptoms include. Unintentional weight loss: No Sinus drainage: No SOB: Yes with strenuous activities Chest tightness: No Coughing: With mucus: Clear and Thick Hemoptysis: No Fever/Chills: No Wheezing: Yes on daily Trelegy HFA, prn albuterol HFA. Initiated by PCP. Medication Treatment: Are you using regular inhalers?: Yes History of respiratory exposures include: Occupational: None Environmental:None Past Medical History: PAST MEDICAL HISTORY Diagnosis Date Anxiety state COPD (chronic obstructive pulmonary disease) (HCC) Elevated cholesterol Essential hypertension Prediabetes Surgical Hx: PAST SURGICAL HISTORY Procedure Laterality Date >=3 1989 2 C-Sections REPAIR ROTATOR CUFF,ACUTE 2020 Family Hx: FAMILY HISTORY Problem Relation Age of Onset Cataract Mother Hypertension Mother Hypertension Sister Diabetes Sister Macular Degen Sister Detached Retina Sister Cataract Sister Cataract Maternal Grandmother Glaucoma No Family History Allergies: ALLERGIES Allergen Reactions Hydrocodone Vomiting Naproxen Anaphylaxis Sulfa (Sulfonamide * Other: See Comments, Rash Tramadol Hives, Rash Trazodone Hives, Rash Social History Tobacco Use: Types: Cigarettes Review Of Systems: See HPI for ROS All of the remainder systems were reviewed and negative. PHYSICAL EXAMINATION: BP 95/62 Pulse 71 Temp (Src) 96.9 (Temporal Artery) Resp 20 Ht 5' 4.5 (1.64m) Wt 187 lb (84.8kg) SpO2 96% BMI 31.61 kg/(m^2). Deferred Data Review I have visually reviewed imaging and testing below CT imaging done today was reviewed independently by practitioner and awaiting radiology review. LDCT 05/30/2021 - images in epic Prior PFTS: No textual results found for the specified procedure(s). Assessment and Plan: 1. Smoker SMOKING CESSATION COUNSELING Smoking cessation methods including Nicotine Replacement Therapies and Behavior Modification were discussed with the patient and assistance offered. The medical conditions adversely affected by cigarette use include:Emphysema. The patient is currently not ready to quit. I personally spent 3 minutes in counseling. The time spent in smoking cessation counseling is exclusive of any other counseling during this visit. Advised to set a quit date. Discussed NRTs nicotine lozenges/nicotine patch, side effects, dosage and administration. Cigarette Logs : Record every single smoked cigarette on a cigarette log (either on their smartphone or with paper and pencil) contiguous to the smoking. Logging your smoked cigarettes in real-time (while smoking) helps quantify consumption accurately and helps you and your act of smoking become more mindful versus automatically, habitually without thought or cognizance. You can't change something if you can't measure the change. Oral Substitutes/Hydration Drinking water is a superb coping technique. Snacking on crunchy, nutrient dense, low calorie foods such as chopped peppers, celery, or carrots can be extremely helpful. Using cinnamon sticks, plastic straws, and sugarless gum/ candy are also excellent oral substitutes. Phone [phone] ([phone]) as additional resource. 2. Centrilobular emphysema (HCC) Evident on Ldct images 05/2021 Recommended PFT - SPIROMETRY - BASELINE AND POST DILATOR; Future - LUNG DIFFUSION CAPACITY (DLCO); Future -Currently in Continue Trelegy ellipta daily. Rinse/gargle mouth after each use to prevent oral thrush. - Continue Albuterol HFA inhaler, 2 inhalations 10-15 minutes prior to activities associated with shortness of breath, and as needed for rescue relief of shortness of breath, cough or wheezing, up to 4 times daily as needed. - previously evaluated with general pulm. 3. Encounter for screening for lung cancer Discussed in detail risk and benefits of LCS. Comprehends and agreeable with proceeding with LDCT and willing to consider diagnostic testing and treatment/management for potential lung cancer diagnosis I have determined that the patient is eligible for a low dose CT based on age, absence of signs or symptoms of lung cancer, and total pack years: Yes. The patient and I engaged in shared decision making, including the use of one or more decision aids, to include benefits, harms, follow-up diagnostic testing, over-diagnosis, false positive rate, and total radiation exposure. The patient understands and feels comfortable with it: Yes. The patient was counseled on the importance of adherence to annual LDCT lung cancer screening, impact of comorbidities and ability or willingness to undergo diagnosis and treatment. The patient understands and feels comfortable with it:Yes. Almas Cordero APRN.CNP January 15, 2024 10:36 AM documented in this encounter [facility] 01-11-2024 Note HNO ID: [id number] Author: EKNIA THAO PA-C Service: ? Author Type: Physician Electrical Discharge Machine Operator Type: Progress Notes Filed: 01/11/2024 11:42 Note Text: Large Joint Arthro/Inj: R knee joint Informed Consent Consent Obtained: Verbal [place] Protocol A moment to CARE was completed. SIGN IN Sign in communication not applicable due to emergent procedure. Personnel directly involved with the procedure wore the appropriate PPE. Special Equipment: N/A Patient/Surrogate Stated/Verified: Patient name, Date of , Relevant allergies and Intended procedure TIME OUT Intended patient and procedure match the source document(s). Consent documented and matches the intended procedure. Relevant labs, photos, and/or imaging studies have been reviewed. Correct side/site marked and visible. Medications required for procedure verified. No fire risk assessment and interventions applicable. No implant(s) inserted. 01/11/2024 11:41 AM The procedure site was prepped in the usual sterile fashion. Site: R knee joint Medications: 6 mg betamethasone acetate-betamethasone sodium phosphate 6 mg/mL Anesthetics: 5 mL lidocaine (PF) 10 mg/mL (1 %) Outcome: Tolerated well, no immediate complications Post-injection instructions were reviewed with the patient and the patient voiced understanding of these instructions. SIGN OUT No specimen collected. All instruments, equipment, possible retained foreign bodies accounted for. Post-procedure follow-up management communicated and Plan of Care Visit completed when applicable [facility] 01-11-2024 History of Present illness Narrative Associated Order(s): Large Joint Arthro/Inj: R knee joint Post-Procedure Diagnose(s): Primary osteoarthritis of right knee Large Joint Arthro/Inj: R knee joint Informed Consent Consent Obtained: Verbal [place] Protocol A moment to CARE was completed. SIGN IN Sign in communication not applicable due to emergent procedure. Personnel directly involved with the procedure wore the appropriate PPE. Special Equipment: N/A Patient/Surrogate Stated/Verified: Patient name, Date of , Relevant allergies and Intended procedure TIME OUT Intended patient and procedure match the source document(s). Consent documented and matches the intended procedure. Relevant labs, photos, and/or imaging studies have been reviewed. Correct side/site marked and visible. Medications required for procedure verified. No fire risk assessment and interventions applicable. No implant(s) inserted. 01/11/2024 11:41 AM The procedure site was prepped in the usual sterile fashion. Site: R knee joint Medications: 6 mg betamethasone acetate-betamethasone sodium phosphate 6 mg/mL Anesthetics: 5 mL lidocaine (PF) 10 mg/mL (1 %) Outcome: Tolerated well, no immediate complications Post-injection instructions were reviewed with the patient and the patient voiced understanding of these instructions. SIGN OUT No specimen collected. All instruments, equipment, possible retained foreign bodies accounted for. Post-procedure follow-up management communicated and Plan of Care Visit completed when applicable AMB ROOMING INTAKE FLOWSHEET DATA Pain Pain Level: 6 Pain Location: Knee-Right Description: Aching (swelling and locking) Duration Amount of Time: 1 Duration Units: Years Frequency: Continuous Intervention/Comfort measure: Cold documented in this encounter [facility] 01-11-2024 Note HNO ID: [id number] Author: PATIENCE CHILDS MA Service: ? Author Type: Software Quality Manager Type: Progress Notes Filed: 01/11/2024 11:42 Note Text: AMB ROOMING INTAKE FLOWSHEET DATA Pain Pain Level: 6 Pain Location: Knee-Right Description: Aching (swelling and locking) Duration Amount of Time: 1 Duration Units: Years Frequency: Continuous Intervention/Comfort measure: Cold [facility] 01-06-2024 Note Date of Procedure 01/06/2024. Astigmatism Right Eye Regular. Left Eye Regular. Central Corneal Thickness Right Eye 527. Left Eye 516. Notes Angle right eye 16.7, left eye 18.4 [facility] 01-06-2024 Note Date of Procedure 01/06/2024. C/D Ratio Right Eye 0.45. Left Eye 0.6. Disc Right Eye Cupping. Left Eye Cupping. Macula Right Eye Normal. Left Eye (Scarring). Periphery Right Eye Normal. Left Eye Normal. [facility] 01-06-2024 Note Date of Procedure 01/06/2024. Notes Measurements only - see Procedure Record under Scanned Documents for signed results. No charge [facility] 01-06-2024 Note HNO ID: [id number] Author: NADEEM OTERO MD Service: ? Author Type: Physician Type: Progress Notes Filed: 01/06/2024 11:39 Note Text: ASSESSMENT/PLAN: 1. 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 Huerta in 3 months for Visual field test 6 months 2. Optic cupping of both eyes - ICD9: 377.14, ICD10: H47.233 Monitor 3. Hyperopia, bilateral - ICD9: 367.0, ICD10: H52.03 Monitor 4. Type 2 diabetes mellitus without retinopathy (HCC) - ICD9: 250.00, ICD10: E11.9 Please keep your blood sugar under good control to minimize risk of ocular complications from diabetes. I have confirmed and edited as necessary the relevant HPI, ophthalmic history, ROS, and the neuro exam findings as obtained by others. I have seen and examined Aurelio Bhakta. I have discussed the case and the management of this patient's care with the Resident/Fellow, if applicable. I also have reviewed and agree with the assessment and plan as stated above and agree with all of its relevant components. Nadeem Otero MD [facility] 01-06-2024 History of Present illness Narrative ASSESSMENT/PLAN: 1. 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 Huerta in 3 months for Visual field test 6 months 2. Optic cupping of both eyes - ICD9: 377.14, ICD10: H47.233 Monitor 3. Hyperopia, bilateral - ICD9: 367.0, ICD10: H52.03 Monitor 4. Type 2 diabetes mellitus without retinopathy (HCC) - ICD9: 250.00, ICD10: E11.9 Please keep your blood sugar under good control to minimize risk of ocular complications from diabetes. I have confirmed and edited as necessary the relevant HPI, ophthalmic history, ROS, and the neuro exam findings as obtained by others. I have seen and examined Aurelio Bhakta. I have discussed the case and the management of this patient's care with the Resident/Fellow, if applicable. I also have reviewed and agree with the assessment and plan as stated above and agree with all of its relevant components. Nadeem Otero MD documented in this encounter [facility] 12-30-2023 Telephone encounter Note Called patient regarding message below. Patient stated that they did not call us today regarding any medication refills. Amelie Archer [employer] December 30, 2023 2:19 PM [facility] 12-30-2023 Telephone encounter Note ----- Message from Brenda Jacinto sent at 12/30/2023 11:26 AM EDT ----- [address] [place] [address]/INTM [facility]/Chris Raza/Pt is requesting a refill for her medication Subject Line Format: [Specialty] / [Provider Name] / Medication Question Select Primary Care Department For Pool Routing Assistance: [facility] => [facility][id number][facility] Patient: Aurelio Bhakta Date of : 1960 Primary Care Provider: Chris Raza MD Patient called to request a refill for his/her medication(s). Patient was advised that the refill should be called into the pharmacy. Patient advised they had already done so and over 24 hours has passed since doing so and they are following up: Y/N? Y. Please contact the patient for additional information at [phone] (home) [phone] (cell). Thank you, Brenda Norton December 30, 2023 11:27 AM [facility] 12-30-2023 Miscellaneous Notes Called patient regarding message below. Patient stated that they did not call us today regarding any medication refills. Amelie Archer Maintenance [employer] December 30, 2023 2:19 PM ----- Message from Brenda Jacinto sent at 12/30/2023 11:26 AM EDT ----- [address] [place] [address]/INTM [facility]/Chris Raza/Pt is requesting a refill for her medication Subject Line Format: [Specialty] / [Provider Name] / Medication Question Select Primary Care Department For Pool Routing Assistance: [facility] => [facility] [place] [[id number]] Patient: Aurelio Bhakta Date of : 1960 Primary Care Provider: Chris Raza MD Patient called to request a refill for his/her medication(s). Patient was advised that the refill should be called into the pharmacy. Patient advised they had already done so and over 24 hours has passed since doing so and they are following up: Y/N? Y. Please contact the patient for additional information at [phone] (home) [phone] (cell). Thank you, Brenda Norton December 30, 2023 11:27 AM documented in this encounter [facility] 12-29-2023 Note Date of Procedure 12/29/2023. Foreign Diplomat Information Field Crop Harvest Contractor: josé miguel. Start time: 1:14 PM. Quality Right Eye Good. Left Eye Good. NFL Interpretation Right Eye Normal. Left Eye Normal. Ganglion Cell Layer Thickness Right Eye Normal. Left Eye Normal. Interval Change Right Eye Initial. Left Eye Initial. [facility] 12-29-2023 Note HNO ID: [id number] Author: ADELINE HUERTA OD Service: ? Author Type: BEAMSTER Type: Progress Notes Filed: 12/29/2023 13:44 Note Text: 1. Type 2 diabetes mellitus without retinopathy (HCC) No visible retinopathy today upon undilated exam (referring to Dr. Otero for narrow angles) - will plan dilation during or after consulation 2. Anatomical narrow angle Both eyes With increasing lens thickness With high hyperopia With borderline IOP Normal OCT both eyes 3. Combined forms of age-related cataract of both eyes Mild- monitor 4. Dry eye syndrome of bilateral lacrimal glands Recommend continue gel twice daily and use artificial tears 3-4x daily 5. Hyperopia, bilateral 6. Regular astigmatism, bilateral 7. Presbyopia Finalized spec rx Follow-up with Dr. Otero for narrow angle consult and me/him for dilated diabetic eye exam Adeline Huerta, OD December 29, 2023 1:34 PM [facility] 12-29-2023 History of Present illness Narrative 1. Type 2 diabetes mellitus without retinopathy (HCC) No visible retinopathy today upon undilated exam (referring to Dr. Otero for narrow angles) - will plan dilation during or after consulation 2. Anatomical narrow angle Both eyes With increasing lens thickness With high hyperopia With borderline IOP Normal OCT both eyes 3. Combined forms of age-related cataract of both eyes Mild- monitor 4. Dry eye syndrome of bilateral lacrimal glands Recommend continue gel twice daily and use artificial tears 3-4x daily 5. Hyperopia, bilateral 6. Regular astigmatism, bilateral 7. Presbyopia Finalized spec rx Follow-up with Dr. Otero for narrow angle consult and me/him for dilated diabetic eye exam Adeline Huerta, OD December 29, 2023 1:34 PM documented in this encounter [facility] 12-29-2023 Instructions Adeline Huerta, OD - 12/29/2023 1:28 PM EDT Use Systane Complete or Refresh Relieva 2-3 times daily Use Systane, Refresh or Blink gel morning and night in both eyes documented in this encounter [facility] 12-28-2023 Miscellaneous Notes Okay to order Last Office Visit Date: 12/03/2023 Last [facility] Health Visit: Visit date not found Has the patient had an appointment at [facility] in the past year, or do they have an upcoming appointment scheduled at [facility]? YES- Continue with refill request. Future Appointment: Visit date not found Rx mail pharmacy faxed requesting the following refill Refill(s) Requested: Requested Prescriptions Pending Prescriptions Disp Refills esomeprazole (NEXIUM) 40 mg capsule 90 capsule 1 Sig: Take 1 capsule by mouth once daily. metoprolol succinate ER (TOPROL XL) 25 mg 24 hr tablet 90 tablet 1 Sig: Take 1 tablet by mouth once daily. ALLERGIES Allergen Reactions Hydrocodone Vomiting Naproxen Anaphylaxis Sulfa (Sulfonamide * Other: See Comments, Rash Tramadol Hives, Rash Trazodone Hives, Rash (home) [phone] (cell) The patients preferred pharmacy has been captured for this encounter? yes Request is for script(s) to be escript to mail order [facility]. lAmas Santizo LPN documented in this encounter [facility] 12-28-2023 Telephone encounter Note Okay to order [facility] 12-28-2023 Telephone encounter Note Last Office Visit Date: 12/03/2023 Last [facility] Health Visit: Visit date not found Has the patient had an appointment at [facility] in the past year, or do they have an upcoming appointment scheduled at [facility]? YES- Continue with refill request. Future Appointment: Visit date not found Rx mail pharmacy faxed requesting the following refill Refill(s) Requested: Requested Prescriptions Pending Prescriptions Disp Refills esomeprazole (NEXIUM) 40 mg capsule 90 capsule 1 Sig: Take 1 capsule by mouth once daily. metoprolol succinate ER (TOPROL XL) 25 mg 24 hr tablet 90 tablet 1 Sig: Take 1 tablet by mouth once daily. ALLERGIES Allergen Reactions Hydrocodone Vomiting Naproxen Anaphylaxis Sulfa (Sulfonamide * Other: See Comments, Rash Tramadol Hives, Rash Trazodone Hives, Rash (home) [phone] (cell) The patients preferred pharmacy has been captured for this encounter? yes Request is for script(s) to be escript to mail order [facility]. Almas Santizo LPN [facility] 12-17-2023 Telephone encounter Note Handled in another encounter Amelie Archer [employer] December 17, 2023 3:15 PM' [facility] 12-17-2023 Telephone encounter Note ----- Message from Kirk Sinclair sent at 12/17/2023 1:54 PM EDT ----- [facility]/ Stone Raza/ [facility] / callback Subject Line Format: Medicine / Chris Raza MD / [Issue] Select Department Name For [place] Routing Assistance: INTM AG ACC => AG INTM [facility] APPT [facility] [[id number]] Patient: Aurelio Bhakta Date of : 1960 Primary Care Provider: Chris Raza MD The reason I am contacting the office is: Call Back - Priscilla from [facility] is requesting a call back from the office. [facility] and they need the patients refills to send be sent over. Address [address] [place] [address]. Person calling if other than patient: Priscilla ( [facility]) Best contact number:[phone] Thank you, Kirk Art December 17, 2023 1:55 PM [facility] 12-17-2023 Miscellaneous Notes Handled in another encounter Amelie Archer [employer] December 17, 2023 3:15 PM' ----- Message from Kirk Sinclair sent at 12/17/2023 1:54 PM EDT ----- [employer]/ Stone Raza/ [facility] / callback Subject Line Format: Medicine / Chris Raza MD / [Issue] Select Department Name For [place] Routing Assistance: INTM AG ACC => AG INTM ACC APPT CTR [facility] [[id number]] Patient: Aurelio Bhakta Date of : 1960 Primary Care Provider: Chris Raza MD The reason I am contacting the office is: Call Back - Priscilla from [facility] is requesting a call back from the office. [facility] and they need the patients refills to send be sent over. Address [address] [place] [address]. Person calling if other than patient: Priscilla ( [facility]) Best contact number:[phone] Thank you, Kirk Art December 17, 2023 1:55 PM documented in this encounter [facility] 12-17-2023 Telephone encounter Note Last Office Visit Date: 12/03/2023 Last [facility] Visit: Visit date not found Has the patient had an appointment at [facility] in the past year, or do they have an upcoming appointment scheduled at [facility]? YES- Continue with refill request. Future Appointment: Visit date not found Patient called requesting the following refill Refill(s) Requested: Requested Prescriptions Pending Prescriptions Disp Refills semaglutide (OZEMPIC) 0.25 mg or 0.5 mg (2 mg/3 mL) pen 3 mL 1 Sig: Inject 0.25 mg subcutaneously one time a week. ALLERGIES Allergen Reactions Hydrocodone Vomiting Naproxen Anaphylaxis Sulfa (Sulfonamide * Other: See Comments, Rash Tramadol Hives, Rash Trazodone Hives, Rash (home) [phone] (cell) The patients preferred pharmacy has been captured for this encounter? yes Request is for script(s) to be escript to pharmacy. Amelie Archer [facility] 12-17-2023 Miscellaneous Notes Last Office Visit Date: 12/03/2023 Last [facility] Visit: Visit date not found Has the patient had an appointment at [facility] in the past year, or do they have an upcoming appointment scheduled at [facility]? YES- Continue with refill request. Future Appointment: Visit date not found Patient called requesting the following refill Refill(s) Requested: Requested Prescriptions Pending Prescriptions Disp Refills semaglutide (OZEMPIC) 0.25 mg or 0.5 mg (2 mg/3 mL) pen 3 mL 1 Sig: Inject 0.25 mg subcutaneously one time a week. ALLERGIES Allergen Reactions Hydrocodone Vomiting Naproxen Anaphylaxis Sulfa (Sulfonamide * Other: See Comments, Rash Tramadol Hives, Rash Trazodone Hives, Rash (home) [phone] (cell) The patients preferred pharmacy has been captured for this encounter? yes Request is for script(s) to be escript to pharmacy. Amelie Archer documented in this encounter [facility] 12-17-2023 Telephone encounter Note Last Office Visit Date: 12/03/2023 Last [facility] Visit: Visit date not found Has the patient had an appointment at [facility] in the past year, or do they have an upcoming appointment scheduled at [facility]? YES- Continue with refill request. Future Appointment: Visit date not found Patient called requesting the following refill Refill(s) Requested: Requested Prescriptions No prescriptions requested or ordered in this encounter ALLERGIES Allergen Reactions Hydrocodone Vomiting Naproxen Anaphylaxis Sulfa (Sulfonamide * Other: See Comments, Rash Tramadol Hives, Rash Trazodone Hives, Rash (home) [phone] (cell) The patients preferred pharmacy has been captured for this encounter? yes Request is for script(s) to be escript to pharmacy. Amelie Archer [facility] 12-17-2023 Miscellaneous Notes Last Office Visit Date: 12/03/2023 Last [facility] Visit: Visit date not found Has the patient had an appointment at [facility] in the past year, or do they have an upcoming appointment scheduled at [facility]? YES- Continue with refill request. Future Appointment: Visit date not found Patient called requesting the following refill Refill(s) Requested: Requested Prescriptions No prescriptions requested or ordered in this encounter ALLERGIES Allergen Reactions Hydrocodone Vomiting Naproxen Anaphylaxis Sulfa (Sulfonamide * Other: See Comments, Rash Tramadol Hives, Rash Trazodone Hives, Rash (home) [phone] (cell) The patients preferred pharmacy has been captured for this encounter? yes Request is for script(s) to be escript to pharmacy. Amelie Archer documented in this encounter [facility] 12-14-2023 Note HNO ID: [id number] Author: KENIA THAO PA-C Service: ? Author Type: Physician Electrical Discharge Machine Operator Type: Progress Notes Filed: 12/14/2023 13:04 Note Text: Kenia Thao PA-C Department of Orthopaedics Orthopaedics [address] [facility] [address] Dept: [phone] Dept December 14, 2023 CHIEF COMPLAINT: Follow Up of the Right Knee and 2 weeks post visit with BP OA right knee (Wants cortisone injection). ASSESSMENT: M17.11 Primary osteoarthritis of right knee (primary encounter diagnosis) SUMMARY/PLAN: Patient presents requesting a repeat right knee corticosteroid injection. Unfortunately she is not quite 91 days out from her last corticosteroid injection. She is leaving tomorrow, her daughter is getting in [place]. Knee is very painful. We discussed trying a short oral steroid just to help with pain and discomfort during the wedding. Happy to see her back at the 91-day helga to do a repeat injection. Imaging: IMPRESSION: Severe medial compartment osteoarthritis. Commander Internal Affairs: NATASHA Transcribe Date/Time: Dec 17 2022 9:04P Dictated by : MAIKOL BURNETT MD This examination was interpreted and the report reviewed and electronically signed by: MAIKOL BURNETT MD on Dec 17 2022 9:04PM EST Results-Findings * * *Final Report* * * DATE OF EXAM: Dec 15 2022 11:07AM [id number] [id number] - XR KNEE 4V AP/PA BOTH+LAT/AMADOR RT / PROCEDURE REASON: Pain * * * * Physician Interpretation * * * * EXAMINATION / TECHNIQUE: XR KNEE 4V AP/PA BOTH+LAT/AMADOR RT HISTORY: Right knee pain x6 months Pain COMPARISON: None RESULT: No acute fracture or malalignment. Severe medial compartment osteoarthritis. Trace joint fluid. Ms. Aurelio Bhakta was advised as to contrast therapies and/or to take analgesics/anti-inflammatories as needed and all contraindications were reviewed. Supporting Information Below: Medications: Current Outpatient Medications Medication Sig hydrOXYzine HCl (ATARAX) 50 mg tablet Take 50 mg by mouth four times a day as needed. Melatonin 5 mg cap Take 1 capsule by mouth daily at bedtime. hydrocortisone 2.5 % cream Apply 1 application to affected area two times a day. emollient combination no.117 (EUCERIN ADVANCED REPAIR HAND) crea Apply 1 mg to affected area once daily as needed. semaglutide (OZEMPIC) 0.25 mg or 0.5 mg (2 mg/3 mL) pen Inject 0.25 mg subcutaneously one time a week. TRELEGY ELLIPTA 100-62.5-25 mcg inhalation powder Inhale 1 Puff as instructed once daily. bumetanide (BUMEX) 1 mg tablet Take 1 tablet by mouth once daily. albuterol HFA (PROVENTIL HFA, VENTOLIN HFA) 90 mcg/actuation inhaler Inhale 2 Puffs as instructed every 6 hours as needed. valsartan (DIOVAN) 80 mg tablet Take 1 tablet by mouth once daily. esomeprazole (NEXIUM) 40 mg capsule Take 1 capsule by mouth once daily. metoprolol succinate ER (TOPROL XL) 25 mg 24 hr tablet Take 1 tablet by mouth once daily. montelukast (SINGULAIR) 10 mg tablet Take 1 tablet by mouth daily at bedtime. rosuvastatin (CRESTOR) 10 mg tablet Take 1 tablet by mouth once daily. predniSONE (DELTASONE) 10 mg tablet 6 tabs po day 1, then 5 tabs day 2, 4 tabs day 3, 3 tabs day 4, 2 tabs day 5, 1 tab day 6. bumetanide (BUMEX) 1 mg tablet Take 1 tablet by mouth once daily. (Patient not taking: Reported on 12/03/2023) buPROPion SR (WELLBUTRIN SR) 150 mg 12 hr tablet TAKE 1 TABLET ONCE DAILY FOR 3 DAYS, THEN 1 TABLET TWICE DAILY THEREAFTER, BEGIN 2 WEEKS PRIOR TO QUIT DATE. (Patient not taking: Reported on 12/03/2023) bumetanide (BUMEX) 1 mg tablet Take 1.5 tablets by mouth once daily. (Patient not taking: Reported on 12/14/2023) ferrous sulfate 325 mg (65 mg iron) tablet Take by mouth. (Patient not taking: Reported on 12/03/2023) No current facility-administered medications for this visit. Allergies: Hydrocodone, Naproxen, Sulfa (Sulfonamide Antibiotics), Tramadol, and Trazodone This note was partially generated using [employer] voice recognition system, and there may be some incorrect words, spellings, and punctuation that were not noted in checking the note before saving. Kenia Thao PA-C [facility] 12-14-2023 History of Present illness Narrative Kenia Thao PA-C Department of Orthopaedics Orthopaedics [address] [facility] [address] Dept: [phone] Dept December 14, 2023 CHIEF COMPLAINT: Follow Up of the Right Knee and 2 weeks post visit with BP OA right knee (Wants cortisone injection). ASSESSMENT: M17.11 Primary osteoarthritis of right knee (primary encounter diagnosis) SUMMARY/PLAN: Patient presents requesting a repeat right knee corticosteroid injection. Unfortunately she is not quite 91 days out from her last corticosteroid injection. She is leaving tomorrow, her daughter is getting in [place]. Knee is very painful. We discussed trying a short oral steroid just to help with pain and discomfort during the wedding. Happy to see her back at the 91-day helga to do a repeat injection. Imaging: IMPRESSION: Severe medial compartment osteoarthritis. Commander Internal Affairs: NATASHA Transcribe Date/Time: Dec 17 2022 9:04P Dictated by : MAIKOL BURNETT MD This examination was interpreted and the report reviewed and electronically signed by: MAIKOL BURNETT MD on Dec 17 2022 9:04PM EST Results-Findings * * *Final Report* * * DATE OF EXAM: Dec 15 2022 11:07AM [id number] [id number] - XR KNEE 4V AP/PA BOTH+LAT/AMADOR RT / PROCEDURE REASON: Pain * * * * Physician Interpretation * * * * EXAMINATION / TECHNIQUE: XR KNEE 4V AP/PA BOTH+LAT/AMADOR RT HISTORY: Right knee pain x6 months Pain COMPARISON: None RESULT: No acute fracture or malalignment. Severe medial compartment osteoarthritis. Trace joint fluid. Ms. Aurelio Bhakta was advised as to contrast therapies and/or to take analgesics/anti-inflammatories as needed and all contraindications were reviewed. Supporting Information Below: Medications: Current Outpatient Medications Medication Sig hydrOXYzine HCl (ATARAX) 50 mg tablet Take 50 mg by mouth four times a day as needed. Melatonin 5 mg cap Take 1 capsule by mouth daily at bedtime. hydrocortisone 2.5 % cream Apply 1 application to affected area two times a day. emollient combination no.117 (EUCERIN ADVANCED REPAIR HAND) crea Apply 1 mg to affected area once daily as needed. semaglutide (OZEMPIC) 0.25 mg or 0.5 mg (2 mg/3 mL) pen Inject 0.25 mg subcutaneously one time a week. TRELEGY ELLIPTA 100-62.5-25 mcg inhalation powder Inhale 1 Puff as instructed once daily. bumetanide (BUMEX) 1 mg tablet Take 1 tablet by mouth once daily. albuterol HFA (PROVENTIL HFA, VENTOLIN HFA) 90 mcg/actuation inhaler Inhale 2 Puffs as instructed every 6 hours as needed. valsartan (DIOVAN) 80 mg tablet Take 1 tablet by mouth once daily. esomeprazole (NEXIUM) 40 mg capsule Take 1 capsule by mouth once daily. metoprolol succinate ER (TOPROL XL) 25 mg 24 hr tablet Take 1 tablet by mouth once daily. montelukast (SINGULAIR) 10 mg tablet Take 1 tablet by mouth daily at bedtime. rosuvastatin (CRESTOR) 10 mg tablet Take 1 tablet by mouth once daily. predniSONE (DELTASONE) 10 mg tablet 6 tabs po day 1, then 5 tabs day 2, 4 tabs day 3, 3 tabs day 4, 2 tabs day 5, 1 tab day 6. bumetanide (BUMEX) 1 mg tablet Take 1 tablet by mouth once daily. (Patient not taking: Reported on 12/03/2023) buPROPion SR (WELLBUTRIN SR) 150 mg 12 hr tablet TAKE 1 TABLET ONCE DAILY FOR 3 DAYS, THEN 1 TABLET TWICE DAILY THEREAFTER, BEGIN 2 WEEKS PRIOR TO QUIT DATE. (Patient not taking: Reported on 12/03/2023) bumetanide (BUMEX) 1 mg tablet Take 1.5 tablets by mouth once daily. (Patient not taking: Reported on 12/14/2023) ferrous sulfate 325 mg (65 mg iron) tablet Take by mouth. (Patient not taking: Reported on 12/03/2023) No current facility-administered medications for this visit. Allergies: Hydrocodone, Naproxen, Sulfa (Sulfonamide Antibiotics), Tramadol, and Trazodone This note was partially generated using [employer] voice recognition system, and there may be some incorrect words, spellings, and punctuation that were not noted in checking the note before saving. Kenia Thao PA-C Patient presents with: Right Knee - Follow Up 2 weeks post visit with BP OA right knee : Wants cortisone injection AMB ROOMING INTAKE FLOWSHEET DATA Pain Pain Level: 7 Pain Location: Knee-Right Description: Aching Duration Amount of Time: (Ongoing) Frequency: Continuous Patient continuing to have right knee pain. Leaving for [place] on Thursday and would like a cortisone injection. Taking no med's for the pain. documented in this encounter [facility] 12-14-2023 Note HNO ID: [id number] Author: VICKI ROCHA MA Service: ? Author Type: Software Quality Manager Type: Progress Notes Filed: 12/14/2023 13:04 Note Text: Patient presents with: Right Knee - Follow Up 2 weeks post visit with BP OA right knee : Wants cortisone injection AMB ROOMING INTAKE FLOWSHEET DATA Pain Pain Level: 7 Pain Location: Knee-Right Description: Aching Duration Amount of Time: (Ongoing) Frequency: Continuous Patient continuing to have right knee pain. Leaving for [place] on Thursday and would like a cortisone injection. Taking no med's for the pain. [facility] 12-05-2023 Note HNO ID: [id number] Author: CHRIS RAZA MD Service: ? Author Type: Physician Type: Progress Notes Filed: 12/05/2023 18:32 Note Text: Attending Note I personally saw and examined the patient on 12/03/2023. I reviewed the resident's note. I agree with the resident's assessment and plan unless otherwise noted. Signature: Chris Raza MD Attending, Internal Medicine Date: 12/05/2023 Time: 6:32 PM [facility] 12-03-2023 Telephone encounter Note Referral Gastroenterology Confirmation number: [id number] Louise Sloan Maintenance Engineer [employer] December 03, 2023 5:14 PM [facility] 12-03-2023 Miscellaneous Notes Referral Gastroenterology Confirmation number: [id number] Louise Sloan Maintenance Engineer [employer] December 03, 2023 5:14 PM documented in this encounter [facility] 12-03-2023 History of Present illness Narrative Images from the original note were not included. [facility] Shruthi Dolan MD ASSESSMENT/PLAN: 1. 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 2. Hx of mammogram - ICD9: V15.89, ICD10: Z92.89 - she can continue with annual screenings. 3. Obesity, Class I, BMI 30-34.9 - ICD9: 278.00, ICD10: E66.9 - ozempic is restarted 4. Chronic obstructive pulmonary disease, unspecified COPD type (HCC) - ICD9: 496, ICD10: J44.9 - continue with current regimen 5. Anxiety - ICD9: 300.00, ICD10: F41. - continue atarax 6. Encounter for smoking cessation counseling - ICD9: V65.42, 305.1, ICD10: Z71.6 - Cessation encouraged. - Physiologic and physical aspects of tobacco addiction as well as strategies for quitting were discussed. - Counseling was given focusing on the harmful effects of this addiction especially given the patient's medical condition(s) which will be worsened because of the chemicals in tobacco. - counseled to complete lung cancer screening and spirometry - CONSULT TO SMOKING CESSATION 7. Chronic midline low back pain without sciatica - ICD9: 724.2, 338.29, ICD10: M54.50, G89.29 - XR LUMBAR GENERAL 3V AP/LAT/L5-S1 to rule out any acute causes 8. Skin sensitivity - ICD9: 709.9, ICD10: R23.8 - eucerin and hydrocortisone is prescribed - advised to use sunscreen 9. Abdominal distention - ICD9: 787.3, ICD10: R14.0 - CONSULT TO GASTROENTEROLOGY d/t history of gastroparesis. 10. Difficulty going to sleep - melatonin 5mg is prescribed Shruthi Dolan MD SUBJECTIVE: Aurelio Bhakta is a 63 year old female here today for 3 month follow up. HPI Ms. Bhakta is a 63-year-old female with PMH: - Intellectual disability - COPD (albuterol, montelukast, trelegy) - Type 2 diabetes (not on hypoglycemics d/t GI upset) - Tobacco dependence - Peptic ulcer disease, GERD(esomeprazole) - Anxiety, depression (bupropion- not anymore, atarax) - Osteoarthritis of the right knee [sees Ortho and gets injections], adhesive capsulitis of the right shoulder, chronic bilateral lower extremity edema - Hypertension (bumetanide, metoprolol, valsartan) - Hyperlipidemia (rosuvastatin) - Iron deficiency anemia - Obesity - Gastroparesis Who is here today for a 3-month follow-up, and has complains of- abdominal distention after eating. Has some knee pain, following with ortho for it. Her skin itches when she goes in the sun. PAST MEDICAL HISTORY No date: Anxiety state No date: Elevated cholesterol No date: Essential hypertension No date: Prediabetes PAST SURGICAL HISTORY 1989: >=3 Comment: 2 C-Sections 2020: REPAIR ROTATOR CUFF,ACUTE Social History Tobacco Use Smoking status: Every Day Current packs/day: 1.00 Average packs/day: 1 pack/day for 40.0 years (40.0 ttl pk-yrs) Types: Cigarettes Smokeless tobacco: Never Vaping Use Vaping status: Never Used Substance Use Topics Alcohol use: Not Currently Drug use: Not Currently FAMILY HISTORY Problem Relation Age of Onset Hypertension Mother Hypertension Sister Diabetes Sister Macular Degen Sister Detached Retina Sister Cataract Sister Cataract Maternal Grandmother Glaucoma No Family History PAIN EVALUATION No data found in the last 1 encounters. ALLERGIES Allergen Reactions Hydrocodone Vomiting Naproxen Anaphylaxis Sulfa (Sulfonamide * Other: See Comments, Rash Tramadol Hives, Rash Trazodone Hives, Rash Medication List prior to visit Current Outpatient Medications Medication Sig hydrOXYzine HCl (ATARAX) 50 mg tablet Take 50 mg by mouth four times a day as needed. TRELEGY ELLIPTA 100-62.5-25 mcg inhalation powder Inhale 1 Puff as instructed once daily. bumetanide (BUMEX) 1 mg tablet Take 1 tablet by mouth once daily. albuterol HFA (PROVENTIL HFA, VENTOLIN HFA) 90 mcg/actuation inhaler Inhale 2 Puffs as instructed every 6 hours as needed. valsartan (DIOVAN) 80 mg tablet Take 1 tablet by mouth once daily. esomeprazole (NEXIUM) 40 mg capsule Take 1 capsule by mouth once daily. metoprolol succinate ER (TOPROL XL) 25 mg 24 hr tablet Take 1 tablet by mouth once daily. montelukast (SINGULAIR) 10 mg tablet Take 1 tablet by mouth daily at bedtime. rosuvastatin (CRESTOR) 10 mg tablet Take 1 tablet by mouth once daily. Melatonin 5 mg cap Take 1 capsule by mouth daily at bedtime. hydrocortisone 2.5 % cream Apply 1 application to affected area two times a day. emollient combination no.117 (EUCERIN ADVANCED REPAIR HAND) crea Apply 1 mg to affected area once daily as needed. semaglutide (OZEMPIC) 0.25 mg or 0.5 mg (2 mg/3 mL) pen Inject 0.25 mg subcutaneously one time a week. bumetanide (BUMEX) 1 mg tablet Take 1 tablet by mouth once daily. (Patient not taking: Reported on 12/03/2023) buPROPion SR (WELLBUTRIN SR) 150 mg 12 hr tablet TAKE 1 TABLET ONCE DAILY FOR 3 DAYS, THEN 1 TABLET TWICE DAILY THEREAFTER, BEGIN 2 WEEKS PRIOR TO QUIT DATE. (Patient not taking: Reported on 12/03/2023) bumetanide (BUMEX) 1 mg tablet Take 1.5 tablets by mouth once daily. (Patient not taking: Reported on 12/03/2023) ferrous sulfate 325 mg (65 mg iron) tablet Take by mouth. (Patient not taking: Reported on 12/03/2023) No current facility-administered medications for this visit. I have confirmed and edited as necessary the chief complaint, medications, past medical, family and social histories. Review of Systems Constitutional: Negative for activity change, appetite change, chills and fever. HENT: Negative for congestion, ear pain, sneezing and sore throat. Eyes: Negative for pain, discharge and itching. Respiratory: Negative for cough, chest tightness and shortness of breath. Cardiovascular: Negative for chest pain and leg swelling. Gastrointestinal: Positive for abdominal distention and constipation. Negative for abdominal pain and diarrhea. Genitourinary: Negative for difficulty urinating, dysuria and enuresis. Musculoskeletal: Positive for back pain and joint swelling. Negative for arthralgias. Skin: Rashes on going in sun Neurological: Negative for dizziness and headaches. Psychiatric/Behavioral: The patient is nervous/anxious. OBJECTIVE: BP 110/70 Pulse 84 Temp 36.8 C (98.2 F) Resp 18 Ht 163.8 cm (5' 4.5) Wt 88.5 kg (195 lb) SpO2 93% BMI 32.95 kg/m Last Wt 12/03/23 : 88.5 kg (195 lb) 09/14/23 : 85.3 kg (188 lb) 08/17/23 : 84.4 kg (186 lb) Last BP 12/03/23 : 110/70 09/14/23 : (P) 114/62 08/17/23 : 118/56 Physical Exam Constitutional: Appearance: Normal appearance. She is obese. HENT: Head: Normocephalic and atraumatic. Nose: Nose normal. Eyes: Extraocular Movements: Extraocular movements intact. Conjunctiva/sclera: Conjunctivae normal. Pupils: Pupils are equal, round, and reactive to light. Cardiovascular: Rate and Rhythm: Normal rate and regular rhythm. Pulmonary: Effort: Pulmonary effort is normal. Breath sounds: Normal breath sounds. Abdominal: General: There is distension. Palpations: Abdomen is soft. Musculoskeletal: General: Swelling present. Normal range of motion. Cervical back: Normal range of motion. Comments: right Skin: General: Skin is warm. Neurological: General: No focal deficit present. Mental Status: She is alert and oriented to person, place, and time. Psychiatric: Mood and Affect: Mood normal. 08/17/2023 12/03/2023 PHQ-9 All Questions Little interest or pleasure in doing things 0 1 Feeling down, depressed, or hopeless 0 (0-4) minimal depression, (5-9) mild depression, (10-14) moderate depression, (15-19) moderately severe depression, (20-27) severe depression There are no discontinued medications. Return in about 3 months (around 2024). Discussed the above with the patient and my preceptor using shared decision-making. The patient is in agreement with the diagnostic and treatment plans. Shruthi Dolan MD, signed on December 03, 2023 10:10 AM documented in this encounter [facility] 12-03-2023 Note HNO ID: [id number] Author: SHRUTHI DOLAN MD Service: ? Author Type: Resident Type: Progress Notes Filed: 12/03/2023 15:48 Note Text: [facility] Shruthi Dolan MD ASSESSMENT/PLAN: 1. 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 2. Hx of mammogram - ICD9: V15.89, ICD10: Z92.89 - she can continue with annual screenings. 3. Obesity, Class I, BMI 30-34.9 - ICD9: 278.00, ICD10: E66.9 - ozempic is restarted 4. Chronic obstructive pulmonary disease, unspecified COPD type (HCC) - ICD9: 496, ICD10: J44.9 - continue with current regimen 5. Anxiety - ICD9: 300.00, ICD10: F41. - continue atarax 6. Encounter for smoking cessation counseling - ICD9: V65.42, 305.1, ICD10: Z71.6 - Cessation encouraged. - Physiologic and physical aspects of tobacco addiction as well as strategies for quitting were discussed. - Counseling was given focusing on the harmful effects of this addiction especially given the patient's medical condition(s) which will be worsened because of the chemicals in tobacco. - counseled to complete lung cancer screening and spirometry - CONSULT TO SMOKING CESSATION 7. Chronic midline low back pain without sciatica - ICD9: 724.2, 338.29, ICD10: M54.50, G89.29 - XR LUMBAR GENERAL 3V AP/LAT/L5-S1 to rule out any acute causes 8. Skin sensitivity - ICD9: 709.9, ICD10: R23.8 - eucerin and hydrocortisone is prescribed - advised to use sunscreen 9. Abdominal distention - ICD9: 787.3, ICD10: R14.0 - CONSULT TO GASTROENTEROLOGY d/t history of gastroparesis. 10. Difficulty going to sleep - melatonin 5mg is prescribed Shruthi Dolan MD SUBJECTIVE: Aurelio Bhakta is a 63 year old female here today for 3 month follow up. HPI Ms. Bhakta is a 63-year-old female with PMH: - Intellectual disability - COPD (albuterol, montelukast, trelegy) - Type 2 diabetes (not on hypoglycemics d/t GI upset) - Tobacco dependence - Peptic ulcer disease, GERD(esomeprazole) - Anxiety, depression (bupropion- not anymore, atarax) - Osteoarthritis of the right knee [sees Ortho and gets injections], adhesive capsulitis of the right shoulder, chronic bilateral lower extremity edema - Hypertension (bumetanide, metoprolol, valsartan) - Hyperlipidemia (rosuvastatin) - Iron deficiency anemia - Obesity - Gastroparesis Who is here today for a 3-month follow-up, and has complains of- abdominal distention after eating. Has some knee pain, following with ortho for it. Her skin itches when she goes in the sun. PAST MEDICAL HISTORY No date: Anxiety state No date: Elevated cholesterol No date: Essential hypertension No date: Prediabetes PAST SURGICAL HISTORY 1989: >=3 Comment: 2 C-Sections 2020: REPAIR ROTATOR CUFF,ACUTE Social History Tobacco Use Smoking status: Every Day Current packs/day: 1.00 Average packs/day: 1 pack/day for 40.0 years (40.0 ttl pk-yrs) Types: Cigarettes Smokeless tobacco: Never Vaping Use Vaping status: Never Used Substance Use Topics Alcohol use: Not Currently Drug use: Not Currently FAMILY HISTORY Problem Relation Age of Onset Hypertension Mother Hypertension Sister Diabetes Sister Macular Degen Sister Detached Retina Sister Cataract Sister Cataract Maternal Grandmother Glaucoma No Family History PAIN EVALUATION No data found in the last 1 encounters. ALLERGIES Allergen Reactions Hydrocodone Vomiting Naproxen Anaphylaxis Sulfa (Sulfonamide * Other: See Comments, Rash Tramadol Hives, Rash Trazodone Hives, Rash Medication List prior to visit Current Outpatient Medications Medication Sig hydrOXYzine HCl (ATARAX) 50 mg tablet Take 50 mg by mouth four times a day as needed. TRELEGY ELLIPTA 100-62.5-25 mcg inhalation powder Inhale 1 Puff as instructed once daily. bumetanide (BUMEX) 1 mg tablet Take 1 tablet by mouth once daily. albuterol HFA (PROVENTIL HFA, VENTOLIN HFA) 90 mcg/actuation inhaler Inhale 2 Puffs as instructed every 6 hours as needed. valsartan (DIOVAN) 80 mg tablet Take 1 tablet by mouth once daily. esomeprazole (NEXIUM) 40 mg capsule Take 1 capsule by mouth once daily. metoprolol succinate ER (TOPROL XL) 25 mg 24 hr tablet Take 1 tablet by mouth once daily. montelukast (SINGULAIR) 10 mg tablet Take 1 tablet by mouth daily at bedtime. rosuvastatin (CRESTOR) 10 mg tablet Take 1 tablet by mouth once daily. Melatonin 5 mg cap Take 1 capsule by mouth daily at bedtime. hydrocortisone 2.5 % cream Apply 1 application to affected area two times a day. emollient combination no.117 (EUCERIN ADVANCED REPAIR HAND (more content not included)... [facility] 11-30-2023 Note HNO ID: [id number] Author: FANNY MYRES MA Service: ? Author Type: Software Quality Manager Type: Progress Notes Filed: 11/30/2023 15:33 Note Text: PT ASSESSMENT - CASTING ROOM Aurelio presents for Application of brace. Applied m/l reaction brace to Right knee Patient has been instructed in Care and proper application of brace. Patient electronically signed Mark STEVENS. Fanny Myers MA [facility] 11-30-2023 History of Present illness Narrative PT ASSESSMENT - CASTING ROOM Aurelio presents for Application of brace. Applied m/l reaction brace to Right knee Patient has been instructed in Care and proper application of brace. Patient electronically signed Mark STEVENS. Fanny Myers MA Rafael Taylor MD Department of Orthopaedics Orthopaedics [address] [facility] [address] Dept: [phone] Dept November 30, 2023 CHIEF COMPLAINT: Established Patient and Follow Up of the Right Knee HPI Patient here today for 9 weeks post visit with Kenia Thao PA-C OA right knee with injections given. She reports relief from the injection. She is going to [place] soon for her daughters wedding. ASSESSMENT: M17.11 Primary osteoarthritis of right knee (primary encounter diagnosis) PLAN: Patient just wanted to talk a bit more about her right knee and treatment options. She has done well, albeit temporarily with cortisone injections in the past. She has not had bracing and we will try a brace today. Will have her back in a few weeks to get a cortisone injection prior to her trip to [place]. She does not wish to pursue surgical options at this time. We reviewed her nicotine cessation at some point if she desires surgery. Ms. Aurelio Bhakta was advised as to contrast therapies and/or to take analgesics/anti-inflammatories as needed and all contraindications were reviewed. Will continue to follow her for this chronic problem and continue to establish care for her knee osteoarthritis treatments. OBJECTIVE: Ms. Aurelio Bhakta is a pleasant 63 year old in no apparent distress. Gen:There were no vitals taken for this visit. nl development, non obese, no deformities ENT: Normocephalic, normal hearing, moist mucosa CV: Pulses:DP/PT= 2+ and symmetric, capillary refill < 2 secs, no peripheral edema/varicosities Skin: no rash, bruising or lesions. Good turgor. Psych: cooperative and appropriate, alert and oriented x 3, good mood and affect. Musculoskeletal: Patient walks with very mild antalgia to the right. Cannot effusion on the right. No patellofemoral crepitance. Tender to palpation over the medial joint line and medial distal femoral condyle, albeit mild. She has some mild joint space widening with valgus stress consistent with some mild ligamentous laxity with a solid endpoint. Neurovascular exam intact. Imaging: IMPRESSION: Severe medial compartment osteoarthritis. Commander Internal Affairs: [facility] Transcribe Date/Time: Dec 17 2022 9:04P Dictated by : MAIKOL BURNETT MD This examination was interpreted and the report reviewed and electronically signed by: MAIKOL BURNETT MD on Dec 17 2022 9:04PM EST Results-Findings * * *Final Report* * * DATE OF EXAM: Dec 15 2022 11:07AM [id number] [id number] - XR KNEE 4V AP/PA BOTH+LAT/AMADOR RT / PROCEDURE REASON: Pain * * * * Physician Interpretation * * * * EXAMINATION / TECHNIQUE: XR KNEE 4V AP/PA BOTH+LAT/AMADOR RT HISTORY: Right knee pain x6 months Pain COMPARISON: None RESULT: No acute fracture or malalignment. Severe medial compartment osteoarthritis. Trace joint fluid. Supporting Subjective Information Below: Past Surgical History: PAST SURGICAL HISTORY 1989: >=3 Comment: 2 C-Sections 2020: REPAIR ROTATOR CUFF,ACUTE Medications: Current Outpatient Medications Medication Sig TRELEGY ELLIPTA 100-62.5-25 mcg inhalation powder Inhale 1 Puff as instructed once daily. bumetanide (BUMEX) 1 mg tablet Take 1 tablet by mouth once daily. albuterol HFA (PROVENTIL HFA, VENTOLIN HFA) 90 mcg/actuation inhaler Inhale 2 Puffs as instructed every 6 hours as needed. valsartan (DIOVAN) 80 mg tablet Take 1 tablet by mouth once daily. esomeprazole (NEXIUM) 40 mg capsule Take 1 capsule by mouth once daily. metoprolol succinate ER (TOPROL XL) 25 mg 24 hr tablet Take 1 tablet by mouth once daily. montelukast (SINGULAIR) 10 mg tablet Take 1 tablet by mouth daily at bedtime. rosuvastatin (CRESTOR) 10 mg tablet Take 1 tablet by mouth once daily. bumetanide (BUMEX) 1 mg tablet Take 1 tablet by mouth once daily. buPROPion SR (WELLBUTRIN SR) 150 mg 12 hr tablet TAKE 1 TABLET ONCE DAILY FOR 3 DAYS, THEN 1 TABLET TWICE DAILY THEREAFTER, BEGIN 2 WEEKS PRIOR TO QUIT DATE. (Patient not taking: Reported on 11/30/2023) bumetanide (BUMEX) 1 mg tablet Take 1.5 tablets by mouth once daily. (Patient not taking: Reported on 08/17/2023) ferrous sulfate 325 mg (65 mg iron) tablet Take by mouth. (Patient not taking: Reported on 09/14/2023) No current facility-administered medications for this visit. Allergies: Hydrocodone, Naproxen, Sulfa (Sulfonamide Antibiotics), Tramadol, and Trazodone ROS: General (negative for fatigue, malaise, weight loss/gain) HEENT (negative for headache, earache, recent vision changes, sinus pain, sore throat) Respiratory (no recent shortness of breath, hemoptysis) CV (negative for chest tightness, palpitations) Musculoskeletal (see HPI) Psych (no depression, anxiety) Rafael Taylor MD documented in this encounter [facility] 11-30-2023 Note HNO ID: [id number] Author: RAFAEL TAYLOR MD Service: ? Author Type: Physician Type: Progress Notes Filed: 11/30/2023 15:33 Note Text: Rafael Taylor MD Department of Orthopaedics Orthopaedics [address] [facility] [address] Dept: [phone] Dept November 30, 2023 CHIEF COMPLAINT: Established Patient and Follow Up of the Right Knee HPI Patient here today for 9 weeks post visit with Kenia Thao PA-C OA right knee with injections given. She reports relief from the injection. She is going to [place] soon for her daughters wedding. ASSESSMENT: M17.11 Primary osteoarthritis of right knee (primary encounter diagnosis) PLAN: Patient just wanted to talk a bit more about her right knee and treatment options. She has done well, albeit temporarily with cortisone injections in the past. She has not had bracing and we will try a brace today. Will have her back in a few weeks to get a cortisone injection prior to her trip to [place]. She does not wish to pursue surgical options at this time. We reviewed her nicotine cessation at some point if she desires surgery. Ms. Aurelio Bhakta was advised as to contrast therapies and/or to take analgesics/anti-inflammatories as needed and all contraindications were reviewed. Will continue to follow her for this chronic problem and continue to establish care for her knee osteoarthritis treatments. OBJECTIVE: Ms. Aurelio Bhakta is a pleasant 63 year old in no apparent distress. Gen:There were no vitals taken for this visit. nl development, non obese, no deformities ENT: Normocephalic, normal hearing, moist mucosa CV: Pulses:DP/PT= 2+ and symmetric, capillary refill < 2 secs, no peripheral edema/varicosities Skin: no rash, bruising or lesions. Good turgor. Psych: cooperative and appropriate, alert and oriented x 3, good mood and affect. Musculoskeletal: Patient walks with very mild antalgia to the right. Cannot effusion on the right. No patellofemoral crepitance. Tender to palpation over the medial joint line and medial distal femoral condyle, albeit mild. She has some mild joint space widening with valgus stress consistent with some mild ligamentous laxity with a solid endpoint. Neurovascular exam intact. Imaging: IMPRESSION: Severe medial compartment osteoarthritis. Commander Internal Affairs: [facility] Transcribe Date/Time: Dec 17 2022 9:04P Dictated by : MAIKOL BURNETT MD This examination was interpreted and the report reviewed and electronically signed by: MAIKOL BURNETT MD on Dec 17 2022 9:04PM EST Results-Findings * * *Final Report* * * DATE OF EXAM: Dec 15 2022 11:07AM [id number] [id number] - XR KNEE 4V AP/PA BOTH+LAT/AMADOR RT / PROCEDURE REASON: Pain * * * * Physician Interpretation * * * * EXAMINATION / TECHNIQUE: XR KNEE 4V AP/PA BOTH+LAT/AMADOR RT HISTORY: Right knee pain x6 months Pain COMPARISON: None RESULT: No acute fracture or malalignment. Severe medial compartment osteoarthritis. Trace joint fluid. Supporting Subjective Information Below: Past Surgical History: PAST SURGICAL HISTORY 1989: >=3 Comment: 2 C-Sections 2020: REPAIR ROTATOR CUFF,ACUTE Medications: Current Outpatient Medications Medication Sig TRELEGY ELLIPTA 100-62.5-25 mcg inhalation powder Inhale 1 Puff as instructed once daily. bumetanide (BUMEX) 1 mg tablet Take 1 tablet by mouth once daily. albuterol HFA (PROVENTIL HFA, VENTOLIN HFA) 90 mcg/actuation inhaler Inhale 2 Puffs as instructed every 6 hours as needed. valsartan (DIOVAN) 80 mg tablet Take 1 tablet by mouth once daily. esomeprazole (NEXIUM) 40 mg capsule Take 1 capsule by mouth once daily. metoprolol succinate ER (TOPROL XL) 25 mg 24 hr tablet Take 1 tablet by mouth once daily. montelukast (SINGULAIR) 10 mg tablet Take 1 tablet by mouth daily at bedtime. rosuvastatin (CRESTOR) 10 mg tablet Take 1 tablet by mouth once daily. bumetanide (BUMEX) 1 mg tablet Take 1 tablet by mouth once daily. buPROPion SR (WELLBUTRIN SR) 150 mg 12 hr tablet TAKE 1 TABLET ONCE DAILY FOR 3 DAYS, THEN 1 TABLET TWICE DAILY THEREAFTER, BEGIN 2 WEEKS PRIOR TO QUIT DATE. (Patient not taking: Reported on 11/30/2023) bumetanide (BUMEX) 1 mg tablet Take 1.5 tablets by mouth once daily. (Patient not taking: Reported on 08/17/2023) ferrous sulfate 325 mg (65 mg iron) tablet Take by mouth. (Patient not taking: Reported on 09/14/2023) No current facility-administered medications for this visit. Allergies: Hydrocodone, Naproxen, Sulfa (Sulfonamide Antibiotics), Tramadol, and Trazodone ROS: General (negative for fatigue, malaise, weight loss/gain) HEENT (negative for headache, earache, recent vision changes, sinus pain, sore throat) Respiratory (no recent shortness of breath, hemoptysis) CV (negative for chest tightness, palpitations) Musculoskeletal (see HPI) Psych (no depression, anxiety) Rafael Taylor MD [facility] 11-23-2023 Telephone encounter Note Last Office Visit Date: 08/17/2023 Last Distance Health Visit: Visit date not found Has the patient had an appointment at [facility] in the past year, or do they have an upcoming appointment scheduled at [facility]? YES- Continue with refill request. Future Appointment: 12/03/2023 Rx mail pharmacy faxed requesting the following refill Refill(s) Requested: Requested Prescriptions Pending Prescriptions Disp Refills TRELEGY ELLIPTA 100-62.5-25 mcg inhalation powder 60 Each 1 Sig: Inhale 1 Puff as instructed once daily. ALLERGIES Allergen Reactions Hydrocodone Vomiting Naproxen Anaphylaxis Sulfa (Sulfonamide * Other: See Comments, Rash Tramadol Hives, Rash Trazodone Hives, Rash (home) [phone] (cell) The patients preferred pharmacy has been captured for this encounter? yes Request is for script(s) to be escript to mail order [facility] . Olesya Mclain LPN [facility] 11-23-2023 Miscellaneous Notes Last Office Visit Date: 08/17/2023 Last Distance Health Visit: Visit date not found Has the patient had an appointment at [facility] in the past year, or do they have an upcoming appointment scheduled at [facility]? YES- Continue with refill request. Future Appointment: 12/03/2023 Rx mail pharmacy faxed requesting the following refill Refill(s) Requested: Requested Prescriptions Pending Prescriptions Disp Refills TRELEGY ELLIPTA 100-62.5-25 mcg inhalation powder 60 Each 1 Sig: Inhale 1 Puff as instructed once daily. ALLERGIES Allergen Reactions Hydrocodone Vomiting Naproxen Anaphylaxis Sulfa (Sulfonamide * Other: See Comments, Rash Tramadol Hives, Rash Trazodone Hives, Rash (home) [phone] (cell) The patients preferred pharmacy has been captured for this encounter? yes Request is for script(s) to be escript to mail order [facility] . Olesya Mclain LPN documented in this encounter [facility] 10-23-2023 Telephone encounter Note Patient set for [address] Segundo. Almas Santizo LPN 10/23/23 1:05 PM [facility] 10-23-2023 Miscellaneous Notes Patient set for [address] Segundo. Almas Santizo LPN 10/23/23 1:05 PM She can be set up with either Dr. Jain or Dr. Gonzalez! Thanks so much! Best, Marvel Sam DO Patient called asking which provider Dr Sam was referring to her. Patient wants to set up her follow up/transfer to new PCP resident in November. Patient could not remember name. Did you have someone specific in mind. She notes that it is another female provider. Thanks. Almas Santizo LPN 08/20/23 2:29 PM documented in this encounter [facility] 10-21-2023 Telephone encounter Note Last Office Visit Date: 08/17/2023 Last Distance Health Visit: Visit date not found Has the patient had an appointment at [facility] in the past year, or do they have an upcoming appointment scheduled at [facility]? YES- Continue with refill request. Future Appointment: Visit date not found Pharmacy faxed requesting the following refill Refill(s) Requested: Bumetanide ALLERGIES Allergen Reactions Hydrocodone Vomiting Naproxen Anaphylaxis Sulfa (Sulfonamide * Other: See Comments, Rash Tramadol Hives, Rash Trazodone Hives, Rash (home) [phone] (cell) The patients preferred pharmacy has been captured for this encounter? yes Request is for script(s) to be escript to pharmacy. Nany Flaherty\ [facility] 10-21-2023 Miscellaneous Notes Last Office Visit Date: 08/17/2023 Last [facility] Visit: Visit date not found Has the patient had an appointment at [facility] in the past year, or do they have an upcoming appointment scheduled at [facility]? YES- Continue with refill request. Future Appointment: Visit date not found Pharmacy faxed requesting the following refill Refill(s) Requested: Bumetanide ALLERGIES Allergen Reactions Hydrocodone Vomiting Naproxen Anaphylaxis Sulfa (Sulfonamide * Other: See Comments, Rash Tramadol Hives, Rash Trazodone Hives, Rash (home) [phone] (cell) The patients preferred pharmacy has been captured for this encounter? yes Request is for script(s) to be escript to pharmacy. Nany Flaherty\ documented in this encounter [facility] 09-28-2023 Note HNO ID: [id number] Author: KENIA THAO PA-C Service: ? Author Type: Physician Electrical Discharge Machine Operator Type: Progress Notes Filed: 09/28/2023 14:00 Note Text: Kenia Thao PA-C Department of [facility] Orth[facility] [address] [facility] [address] Dept: [phone] Dept September 28, 2023 CHIEF COMPLAINT: Follow Up of the Right Knee and 14 weeks post visit OA right knee with injection given. ASSESSMENT: M17.11 Primary osteoarthritis of right knee (primary encounter diagnosis) M25.561, G89.29 Chronic pain of right knee SUMMARY/PLAN: Patient presents requesting a repeat right knee corticosteroid injection. Previous injection was maybe helpful for a month or 2. Pain today is a 7 out of 10 deep aching. Knee feels swollen. She tells me that her internal medicine provider advised her that she needs to see a surgeon to discuss total knee arthroplasty. I have no issues with getting her in with one of our surgeons for consult, however we previously discussed that she needs to quit smoking before she would be a candidate for any arthroplasty. When I asked her about smoking cessation today she said what's the point. Will proceed with repeat injection today. Large Joint Arthro/Inj: R knee joint Informed Consent Consent Obtained: Verbal [place] Protocol A moment to CARE was completed. SIGN IN Sign in communication not applicable due to emergent procedure. Personnel directly involved with the procedure wore the appropriate PPE. Special Equipment: N/A Patient/Surrogate Stated/Verified: Patient name, Date of , Relevant allergies and Intended procedure TIME OUT Intended patient and procedure match the source document(s). Consent documented and matches the intended procedure. Relevant labs, photos, and/or imaging studies have been reviewed. Correct side/site marked and visible. Medications required for procedure verified. No fire risk assessment and interventions applicable. No implant(s) inserted. 09/28/2023 1:53 PM The procedure site was prepped in the usual sterile fashion. Site: R knee joint Medications: 6 mg betamethasone acetate-betamethasone sodium phosphate 6 mg/mL Anesthetics: 5 mL lidocaine (PF) 10 mg/mL (1 %) Outcome: Tolerated well, no immediate complications Post-injection instructions were reviewed with the patient and the patient voiced understanding of these instructions. SIGN OUT All instruments, equipment, possible retained foreign bodies accounted for. Ms. Aurelio Bhakta was advised as to contrast therapies and/or to take analgesics/anti-inflammatories as needed and all contraindications were reviewed. Supporting Information Below: Medications: Current Outpatient Medications Medication Sig TRELEGY ELLIPTA 100-62.5-25 mcg inhalation powder Inhale 1 Puff as instructed once daily. buPROPion SR (WELLBUTRIN SR) 150 mg 12 hr tablet TAKE 1 TABLET ONCE DAILY FOR 3 DAYS, THEN 1 TABLET TWICE DAILY THEREAFTER, BEGIN 2 WEEKS PRIOR TO QUIT DATE. albuterol HFA (PROVENTIL HFA, VENTOLIN HFA) 90 mcg/actuation inhaler Inhale 2 Puffs as instructed every 6 hours as needed. esomeprazole (NEXIUM) 40 mg capsule Take 1 capsule by mouth once daily. metoprolol succinate ER (TOPROL XL) 25 mg 24 hr tablet Take 1 tablet by mouth once daily. montelukast (SINGULAIR) 10 mg tablet Take 1 tablet by mouth daily at bedtime. rosuvastatin (CRESTOR) 10 mg tablet Take 1 tablet by mouth once daily. valsartan (DIOVAN) 80 mg tablet Take 1 tablet by mouth once daily. bumetanide (BUMEX) 1 mg tablet Take 1 tablet by mouth once daily. hydrOXYzine HCl (ATARAX) 50 mg tablet Take 1 tablet by mouth four times a day as needed. (Patient not taking: Reported on 09/28/2023) bumetanide (BUMEX) 1 mg tablet Take 1.5 tablets by mouth once daily. (Patient not taking: Reported on 08/17/2023) ferrous sulfate 325 mg (65 mg iron) tablet Take by mouth. (Patient not taking: Reported on 09/14/2023) No current facility-administered medications for this visit. Allergies: Hydrocodone, Naproxen, Sulfa (Sulfonamide Antibiotics), Tramadol, and Trazodone This note was partially generated using [employer] voice recognition system, and there may be some incorrect words, spellings, and punctuation that were not noted in checking the note before saving. Kenia Thao PA-C [facility] 09-28-2023 History of Present illness Narrative Associated Order(s): Large Joint Arthro/Inj: R knee joint Post-Procedure Diagnose(s): Primary osteoarthritis of right knee; Chronic pain of right knee Kenia Thao PA-C Department of Orthopaedics Orthopaedics [facility] [address] [facility] [address] Dept: [phone] Dept September 28, 2023 CHIEF COMPLAINT: Follow Up of the Right Knee and 14 weeks post visit OA right knee with injection given. ASSESSMENT: M17.11 Primary osteoarthritis of right knee (primary encounter diagnosis) M25.561, G89.29 Chronic pain of right knee SUMMARY/PLAN: Patient presents requesting a repeat right knee corticosteroid injection. Previous injection was maybe helpful for a month or 2. Pain today is a 7 out of 10 deep aching. Knee feels swollen. She tells me that her internal medicine provider advised her that she needs to see a surgeon to discuss total knee arthroplasty. I have no issues with getting her in with one of our surgeons for consult, however we previously discussed that she needs to quit smoking before she would be a candidate for any arthroplasty. When I asked her about smoking cessation today she said what's the point. Will proceed with repeat injection today. Large Joint Arthro/Inj: R knee joint Informed Consent Consent Obtained: Verbal [place] Protocol A moment to CARE was completed. SIGN IN Sign in communication not applicable due to emergent procedure. Personnel directly involved with the procedure wore the appropriate PPE. Special Equipment: N/A Patient/Surrogate Stated/Verified: Patient name, Date of , Relevant allergies and Intended procedure TIME OUT Intended patient and procedure match the source document(s). Consent documented and matches the intended procedure. Relevant labs, photos, and/or imaging studies have been reviewed. Correct side/site marked and visible. Medications required for procedure verified. No fire risk assessment and interventions applicable. No implant(s) inserted. 09/28/2023 1:53 PM The procedure site was prepped in the usual sterile fashion. Site: R knee joint Medications: 6 mg betamethasone acetate-betamethasone sodium phosphate 6 mg/mL Anesthetics: 5 mL lidocaine (PF) 10 mg/mL (1 %) Outcome: Tolerated well, no immediate complications Post-injection instructions were reviewed with the patient and the patient voiced understanding of these instructions. SIGN OUT All instruments, equipment, possible retained foreign bodies accounted for. Ms. Aurelio Bhakta was advised as to contrast therapies and/or to take analgesics/anti-inflammatories as needed and all contraindications were reviewed. Supporting Information Below: Medications: Current Outpatient Medications Medication Sig TRELEGY ELLIPTA 100-62.5-25 mcg inhalation powder Inhale 1 Puff as instructed once daily. buPROPion SR (WELLBUTRIN SR) 150 mg 12 hr tablet TAKE 1 TABLET ONCE DAILY FOR 3 DAYS, THEN 1 TABLET TWICE DAILY THEREAFTER, BEGIN 2 WEEKS PRIOR TO QUIT DATE. albuterol HFA (PROVENTIL HFA, VENTOLIN HFA) 90 mcg/actuation inhaler Inhale 2 Puffs as instructed every 6 hours as needed. esomeprazole (NEXIUM) 40 mg capsule Take 1 capsule by mouth once daily. metoprolol succinate ER (TOPROL XL) 25 mg 24 hr tablet Take 1 tablet by mouth once daily. montelukast (SINGULAIR) 10 mg tablet Take 1 tablet by mouth daily at bedtime. rosuvastatin (CRESTOR) 10 mg tablet Take 1 tablet by mouth once daily. valsartan (DIOVAN) 80 mg tablet Take 1 tablet by mouth once daily. bumetanide (BUMEX) 1 mg tablet Take 1 tablet by mouth once daily. hydrOXYzine HCl (ATARAX) 50 mg tablet Take 1 tablet by mouth four times a day as needed. (Patient not taking: Reported on 09/28/2023) bumetanide (BUMEX) 1 mg tablet Take 1.5 tablets by mouth once daily. (Patient not taking: Reported on 08/17/2023) ferrous sulfate 325 mg (65 mg iron) tablet Take by mouth. (Patient not taking: Reported on 09/14/2023) No current facility-administered medications for this visit. Allergies: Hydrocodone, Naproxen, Sulfa (Sulfonamide Antibiotics), Tramadol, and Trazodone This note was partially generated using [employer] voice recognition system, and there may be some incorrect words, spellings, and punctuation that were not noted in checking the note before saving. Kenia Thao PA-C Patient presents with: Right Knee - Follow Up 14 weeks post visit OA right knee with injection given AMB ROOMING INTAKE FLOWSHEET DATA Pain Pain Level: 7 Pain Location: Knee-Right Description: Aching Duration Amount of Time: (Ongoing) Frequency: Continuous Intervention/Comfort measure: (None) Patient states injection helped a shorter period of this time. Feels she has swelling and pressure in her knee. States it is effecting her hip and lower back. Taking no med's for the pain. documented in this encounter [facility] 09-28-2023 Telephone encounter Note Last Office Visit Date: 08/17/2023 Last Distance Health Visit: Visit date not found Has the patient had an appointment at [facility] in the past year, or do they have an upcoming appointment scheduled at [facility]? YES- Continue with refill request. Future Appointment: Visit date not found Pharmacy faxed requesting the following refill Refill(s) Requested: Requested Prescriptions Pending Prescriptions Disp Refills albuterol HFA (PROVENTIL HFA, VENTOLIN HFA) 90 mcg/actuation inhaler 1 Each 1 Sig: Inhale 2 Puffs as instructed every 6 hours as needed. valsartan (DIOVAN) 80 mg tablet 90 tablet 1 Sig: Take 1 tablet by mouth once daily. hydrOXYzine HCl (ATARAX) 50 mg tablet 120 tablet 1 Sig: Take 1 tablet by mouth four times a day as needed. bumetanide (BUMEX) 1 mg tablet 30 tablet 0 Sig: Take 1 tablet by mouth once daily. ALLERGIES Allergen Reactions Hydrocodone Vomiting Naproxen Anaphylaxis Sulfa (Sulfonamide * Other: See Comments, Rash Tramadol Hives, Rash Trazodone Hives, Rash (home) [phone] (cell) The patients preferred pharmacy has been captured for this encounter? yes Request is for script(s) to be escript to pharmacy. Amada Archer LPN [facility] 09-28-2023 Miscellaneous Notes Last Office Visit Date: 08/17/2023 Last Distance Health Visit: Visit date not found Has the patient had an appointment at [facility] in the past year, or do they have an upcoming appointment scheduled at [facility]? YES- Continue with refill request. Future Appointment: Visit date not found Pharmacy faxed requesting the following refill Refill(s) Requested: Requested Prescriptions Pending Prescriptions Disp Refills albuterol HFA (PROVENTIL HFA, VENTOLIN HFA) 90 mcg/actuation inhaler 1 Each 1 Sig: Inhale 2 Puffs as instructed every 6 hours as needed. valsartan (DIOVAN) 80 mg tablet 90 tablet 1 Sig: Take 1 tablet by mouth once daily. hydrOXYzine HCl (ATARAX) 50 mg tablet 120 tablet 1 Sig: Take 1 tablet by mouth four times a day as needed. bumetanide (BUMEX) 1 mg tablet 30 tablet 0 Sig: Take 1 tablet by mouth once daily. ALLERGIES Allergen Reactions Hydrocodone Vomiting Naproxen Anaphylaxis Sulfa (Sulfonamide * Other: See Comments, Rash Tramadol Hives, Rash Trazodone Hives, Rash (home) [phone] (cell) The patients preferred pharmacy has been captured for this encounter? yes Request is for script(s) to be escript to pharmacy. Amada Archer LPN documented in this encounter [facility] 09-28-2023 Note HNO ID: [id number] Author: VICKI ROCHA MA Service: ? Author Type: Software Quality Manager Type: Progress Notes Filed: 09/28/2023 14:00 Note Text: Patient presents with: Right Knee - Follow Up 14 weeks post visit OA right knee with injection given AMB ROOMING INTAKE FLOWSHEET DATA Pain Pain Level: 7 Pain Location: Knee-Right Description: Aching Duration Amount of Time: (Ongoing) Frequency: Continuous Intervention/Comfort measure: (None) Patient states injection helped a shorter period of this time. Feels she has swelling and pressure in her knee. States it is effecting her hip and lower back. Taking no med's for the pain. [facility] 09-14-2023 Instructions Malinda Schroeder APRN.[facility] - 09/14/2023 1:19 PM EDT You do meet the eligibility for CT scan for lung cancer screening. You did not want to participate in lung cancer screening by having a CT scan done. If you change your mind you have completed the initial visit and can call to have an order placed by our team for the CT scan. Thank you Malinda Schroeder APRN.[facility] Lung Cancer Screening Program [phone] documented in this encounter [facility] 09-14-2023 Note HNO ID: [id number] Author: MALINDA SCHROEDER APRN.[employer] MARKETING [employer] Service: ? Author Type: Nurse Practitioner Type: Progress Notes Filed: 09/14/2023 13:35 Note Text: LUNG SCREENING VISIT PRIMARY CARE PHYSICIAN: Chris Raza MD PULMONARY PROVIDER: Patience ROMERO Results will be communicated via letter or electronic record if applicable. Visit Delivery: In Person Patient Visit Type: New to Screening Current or Ex-smoker? [Current Exam Type: baseline LDCT Number of Pack Years: 50 Current smoker (=0) REQUESTER: The referring provider advised the patient to have screening. HISTORY OF PRESENT ILLNESS: Aurelio Bhakta is a 63 year old Active smoker who presents for lung screening. Currently smoking 1 PPD. Patient does not want to do a Cat scan and does not want to know if she has lung cancer. She does not want to undergo chemotherapy or radiation if she does have it. Last 6 Encounter Wt Readings: Date: Wt: 09/14/2023 85.3 kg (188 lb) 08/17/2023 84.4 kg (186 lb) 07/28/2023 83.5 kg (184 lb) 06/23/2023 83.7 kg (184 lb 9.6 oz) 04/29/2023 79.4 kg (175 lb) 12/16/2022 85.7 kg (189 lb) PAST MEDICAL HISTORY Diagnosis Date Anxiety state Elevated cholesterol Essential hypertension Prediabetes PAST SURGICAL HISTORY Procedure Laterality Date >=3 1990 2 C-Sections REPAIR ROTATOR CUFF,ACUTE 2020 FAMILY HISTORY Problem Relation Age of Onset Hypertension Mother Hypertension Sister Diabetes Sister Macular Degen Sister Detached Retina Sister Cataract Sister Cataract Maternal Grandmother Glaucoma No Family History TRELEGY ELLIPTA 100-62.5-25 mcg inhalation powder Inhale 1 Puff as instructed once daily. albuterol HFA (PROVENTIL HFA, VENTOLIN HFA) 90 mcg/actuation inhaler Inhale 2 Puffs as instructed every 6 hours as needed. metoprolol succinate ER (TOPROL XL) 25 mg 24 hr tablet Take 1 tablet by mouth once daily. montelukast (SINGULAIR) 10 mg tablet Take 1 tablet by mouth daily at bedtime. rosuvastatin (CRESTOR) 10 mg tablet Take 1 tablet by mouth once daily. valsartan (DIOVAN) 80 mg tablet Take 1 tablet by mouth once daily. bumetanide (BUMEX) 1 mg tablet Take 1 tablet by mouth once daily. buPROPion SR (WELLBUTRIN SR) 150 mg 12 hr tablet TAKE 1 TABLET ONCE DAILY FOR 3 DAYS, THEN 1 TABLET TWICE DAILY THEREAFTER, BEGIN 2 WEEKS PRIOR TO QUIT DATE. hydrOXYzine HCl (ATARAX) 50 mg tablet Take 1 tablet by mouth four times a day as needed. (Patient not taking: Reported on 09/14/2023) bumetanide (BUMEX) 1 mg tablet Take 1.5 tablets by mouth once daily. (Patient not taking: Reported on 08/17/2023) esomeprazole (NEXIUM) 40 mg capsule Take 1 capsule by mouth once daily. (Patient not taking: Reported on 08/17/2023) ferrous sulfate 325 mg (65 mg iron) tablet Take by mouth. (Patient not taking: Reported on 09/14/2023) ALLERGIES Allergen Reactions Hydrocodone Vomiting Naproxen Anaphylaxis Sulfa (Sulfonamide * Other: See Comments, Rash Tramadol Hives, Rash Trazodone Hives, Rash The medications and allergies were reviewed and reconciled for this patient and deemed current. Lung Cancer Risk Factors: 1.Tobacco Use: Start Age 13, Quit Age: N/A, Average packs per day 1, Pack Years 50 2. Passive Smoke Exposure: Yes, as a Child and as an Adult 3. Personal hx of malignancy: No, Type of Cancer: 4. Significant exposures (1 year or more of exposure): , 5. Race: White 6. Education: Less than High School 7. BMI:Body mass index is 31.77 kg/m?. Patient-entered Height: 5'4 Patient-entered Weight: 190 pounds 8. COPD: Yes 9. Pneumonia in the past 5 years: No 10. Is there a history of lung cancer in a first degree relative? No 11. Is there a history of lung cancer in a non-first degree relative? No 12. Is there a history of any other cancer in a first degree relative? No Health Maintenance Immunization History Administered Date(s) Administered COVID-19 original vaccine, age 12+ yr, monovalent ([employer] - PURPLE TOP) 06/28/2020 07/23/2020 COVID-19 vaccine, age 12+ yr, 2022- season ([employer]-BIONTECH) 04/29/2023 COVID-19 vaccine, age 12+ yr, bivalent (P[employer]ER-BIONTECH) 01/05/2022 influenza (IIV3) vaccine, trivalent (AFLURIA, FLULAVAL, FLUVIRIN, FLUZONE) 12/15/2022 influenza (IIV4) vaccine, age 6 mo - 64 yr, quadrivalent, PF (AFLURIA, FLUARIX, FLULAVAL, FLUZONE) 01/05/2022 influenza (LAIV) vaccine, nasal, unspecified formulation 01/05/2022 influenza (RIV4) vaccine, recombinant, quadrivalent, PF (FLUBLOK) 12/15/2022 pneumococcal conjugate (PCV20) vaccine, 20 valent (PREVNAR 20) 01/05/2022 01/05/2022 tetanus diphtheria pertussis (Tdap) vaccine, age 7+ yr (ADACEL, BOOSTRIX) 12/16/2022 zoster (RZV) vaccine, recombinant (SHINGRIX) 04/06/2020 12/15/2022 Colonoscopy: Mammogram: 08/26/2023 DATA REVIEW I have directly visualized the testing documented: 05/30/2021 LDCT Prior Imaging: Last CT/CTA Chest/Lungs CT LUNG SCRE (more content not included)... [facility] 09-14-2023 History of Present illness Narrative Images from the original note were not included. LUNG SCREENING VISIT PRIMARY CARE PHYSICIAN: Chris Raza MD PULMONARY PROVIDER: Patience ROMERO Results will be communicated via letter or electronic record if applicable. Visit Delivery: In Person Patient Visit Type: New to Screening Current or Ex-smoker? [Current Exam Type: baseline LDCT Number of Pack Years: 50 Current smoker (=0) REQUESTER: The referring provider advised the patient to have screening. HISTORY OF PRESENT ILLNESS: Aurelio Bhakta is a 63 year old Active smoker who presents for lung screening. Currently smoking 1 PPD. Patient does not want to do a Cat scan and does not want to know if she has lung cancer. She does not want to undergo chemotherapy or radiation if she does have it. Last 6 Encounter Wt Readings: Date: Wt: 09/14/2023 85.3 kg (188 lb) 08/17/2023 84.4 kg (186 lb) 07/28/2023 83.5 kg (184 lb) 06/23/2023 83.7 kg (184 lb 9.6 oz) 04/29/2023 79.4 kg (175 lb) 12/16/2022 85.7 kg (189 lb) PAST MEDICAL HISTORY Diagnosis Date Anxiety state Elevated cholesterol Essential hypertension Prediabetes PAST SURGICAL HISTORY Procedure Laterality Date >=3 1989 2 C-Sections REPAIR ROTATOR CUFF,ACUTE 2020 FAMILY HISTORY Problem Relation Age of Onset Hypertension Mother Hypertension Sister Diabetes Sister Macular Degen Sister Detached Retina Sister Cataract Sister Cataract Maternal Grandmother Glaucoma No Family History TRELEGY ELLIPTA 100-62.5-25 mcg inhalation powder Inhale 1 Puff as instructed once daily. albuterol HFA (PROVENTIL HFA, VENTOLIN HFA) 90 mcg/actuation inhaler Inhale 2 Puffs as instructed every 6 hours as needed. metoprolol succinate ER (TOPROL XL) 25 mg 24 hr tablet Take 1 tablet by mouth once daily. montelukast (SINGULAIR) 10 mg tablet Take 1 tablet by mouth daily at bedtime. rosuvastatin (CRESTOR) 10 mg tablet Take 1 tablet by mouth once daily. valsartan (DIOVAN) 80 mg tablet Take 1 tablet by mouth once daily. bumetanide (BUMEX) 1 mg tablet Take 1 tablet by mouth once daily. buPROPion SR (WELLBUTRIN SR) 150 mg 12 hr tablet TAKE 1 TABLET ONCE DAILY FOR 3 DAYS, THEN 1 TABLET TWICE DAILY THEREAFTER, BEGIN 2 WEEKS PRIOR TO QUIT DATE. hydrOXYzine HCl (ATARAX) 50 mg tablet Take 1 tablet by mouth four times a day as needed. (Patient not taking: Reported on 09/14/2023) bumetanide (BUMEX) 1 mg tablet Take 1.5 tablets by mouth once daily. (Patient not taking: Reported on 08/17/2023) esomeprazole (NEXIUM) 40 mg capsule Take 1 capsule by mouth once daily. (Patient not taking: Reported on 08/17/2023) ferrous sulfate 325 mg (65 mg iron) tablet Take by mouth. (Patient not taking: Reported on 09/14/2023) ALLERGIES Allergen Reactions Hydrocodone Vomiting Naproxen Anaphylaxis Sulfa (Sulfonamide * Other: See Comments, Rash Tramadol Hives, Rash Trazodone Hives, Rash The medications and allergies were reviewed and reconciled for this patient and deemed current. Lung Cancer Risk Factors: 1.Tobacco Use: Start Age 13, Quit Age: N/A, Average packs per day 1, Pack Years 50 2. Passive Smoke Exposure: Yes, as a Child and as an Adult 3. Personal hx of malignancy: No, Type of Cancer: 4. Significant exposures (1 year or more of exposure): , 5. Race: White 6. Education: Less than High School 7. BMI:Body mass index is 31.77 kg/m . Patient-entered Height: 5'4 Patient-entered Weight: 190 pounds 8. COPD: Yes 9. Pneumonia in the past 5 years: No 10. Is there a history of lung cancer in a first degree relative? No 11. Is there a history of lung cancer in a non-first degree relative? No 12. Is there a history of any other cancer in a first degree relative? No Health Maintenance Immunization History Administered Date(s) Administered COVID-19 original vaccine, age 12+ yr, monovalent ([employer]ick - PURPLE TOP) 06/28/2020 07/23/2020 COVID-19 vaccine, age 12+ yr, 2022- season (Fashionchick) 04/29/2023 COVID-19 vaccine, age 12+ yr, bivalent ([employer]ave[employer]) 01/05/2022 influenza (IIV3) vaccine, trivalent (AFLURIA, FLULAVAL, FLUVIRIN, FLUZONE) 12/15/2022 influenza (IIV4) vaccine, age 6 mo - 64 yr, quadrivalent, PF (AFLURIA, FLUARIX, FLULAVAL, FLUZONE) 01/05/2022 influenza (LAIV) vaccine, nasal, unspecified formulation 01/05/2022 influenza (RIV4) vaccine, recombinant, quadrivalent, PF (FLUBLOK) 12/15/2022 pneumococcal conjugate (PCV20) vaccine, 20 valent (PREVNAR 20) 01/05/2022 01/05/2022 tetanus diphtheria pertussis (Tdap) vaccine, age 7+ yr (ADACEL, BOOSTRIX) 12/16/2022 zoster (RZV) vaccine, recombinant (SHINGRIX) 04/06/2020 12/15/2022 Colonoscopy: Mammogram: 08/26/2023 DATA REVIEW I have directly visualized the testing documented: 05/30/2021 LDCT Prior Imaging: Last CT/CTA Chest/Lungs CT LUNG SCREEN WO IVCON Exam End: 05/30/2021 2:53 PM (Final result) Narrative: EXAM: LOW-DOSE CHEST CT FOR LUNG CANCER SCREENING. ADDITIONAL HISTORY: Current smoker, 40 pack year history. TECHNIQUE: Noncontrast low-dose helical CT was acquired at 2.5 mm slices and reformatted in the coronal and sagittal planes. Reconstructed axial image width 2.5 mm. Reconstructed axial image width 2.5 mm. Reporting Manager EZRA, Model BRILLIANCE 64, CTDIvol 5.2 mGy, DLP 221.8 mGy-cm. COMPARISON: None. FINDINGS: Lungs: Right lung: Emphysematous changes with pleural parenchymal scarring noted. Scattered areas of pleural thickening noted. No dominant parenchymal lung nodule. Scarring is suspected anteriorly at the lung bases and posteriorly in the costophrenic angle.. Left lung: Pleural-parenchymal scarring is seen in the apical region with emphysematous changes. Linear scarring suspected in the left lung base as well. Mediastinum/heart, including visual assessment of coronary artery calcification: Small mediastinal lymph nodes are seen with minimal aortic calcification. Tiny bit of calcification seen at the aortic valve.. Chest wall soft tissues and skeletal structures: Small axillary lymph nodes are seen. Thyroid gland and lower neck are unremarkable.. Included upper abdomen: The visualized portions of the upper abdomen are unremarkable.. Impression: No definite suspicious parenchymal nodule is identified.. Lung-RADS: Category 1: No nodules and/or definitely benign nodules. Continue annual screening with LDCT in 12 months. MODIFIERS: None. RECOMMENDATIONS: Follow-up LD CT in 12 months time. Compliance statement for PQRS #436: Automatic exposure control (AEC) was used to reduce radiation dose on this study. Last CT Chest - Impression Only No resulted procedures found. Last XR Chest - Impression Only No resulted procedures found. Pulmonary Function Testing: No textual results found for the specified procedure(s). PHYSICAL EXAM: Wt 85.3 kg (188 lb) BMI 31.77 kg/m Deferred ASSESSMENT and RECOMMENDATIONS: 1. Screening for lung cancer: Six year risk for lung cancer: 6.1% [email or web address] I have determined that the patient is eligible for a low dose CT based on age, absence of signs or symptoms of lung cancer, and total pack years: No. Pt does not want to know if she has lung cancer. Pt does not want to do a Cat scan. She does not want chemotherapy or radiation if she does have it. 2. Nicotine dependence: The patient was counseled on the importance of smoking cessation if current smoker and, if appropriate, offered additional tobacco cessation counseling services - Smoking Cessation Counseling.-declined Malinda Schroeder APRN.[employer] NPI #: September 14, 2023 1:17 PM documented in this encounter [facility] 09-09-2023 Telephone encounter Note 09/09/23: Malinda Schroeder request images from: [facility] [address] [place] [address] Spoke with FabAlley; she will push. CT Lung screen 05/30/2021 Eloisa Van RN [facility] 09-09-2023 Miscellaneous Notes 09/09/23: Malinda Schroeder request images from: [facility] [address] [place] [address] Spoke with Anavik; she will push. CT Lung screen 05/30/2021 Eloisa Van RN [facility] documented in this encounter [facility] 09-04-2023 Telephone encounter Note Please inform the patient of the following lab results: - Her urine jjjxjap-vz-szncrvwyzr ratio [a yearly urine test that we perform to assess for any damage sustained by the kidneys due to diabetes] is slightly elevated [signifying possible renal dysfunction]. Is she presently taking her valsartan? This medication is kidney-protective and can help mitigate the progression of kidney disease. I am also going to order a metabolic panel [just one blood test] to further assess her kidney function. Thanks so much, Marvel Sam DO [facility] 09-04-2023 Miscellaneous Notes Please inform the patient of the following lab results: - Her urine dcncyfl-ol-yumatcwcra ratio [a yearly urine test that we perform to assess for any damage sustained by the kidneys due to diabetes] is slightly elevated [signifying possible renal dysfunction]. Is she presently taking her valsartan? This medication is kidney-protective and can help mitigate the progression of kidney disease. I am also going to order a metabolic panel [just one blood test] to further assess her kidney function. Thanks so much, Marvel Sam DO documented in this encounter [facility] 08-28-2023 Telephone encounter Note Last Office Visit Date: 08/17/2023 Last [facility] Health Visit: Visit date not found Has the patient had an appointment at [facility] in the past year, or do they have an upcoming appointment scheduled at [facility]? YES- Continue with refill request. Future Appointment: Visit date not found Pharmacy faxed requesting the following refill Refill(s) Requested: Requested Prescriptions Pending Prescriptions Disp Refills TRELEGY ELLIPTA 100-62.5-25 mcg inhalation powder 60 Each 1 Sig: Inhale 1 Puff as instructed once daily. ALLERGIES Allergen Reactions Hydrocodone Vomiting Naproxen Anaphylaxis Sulfa (Sulfonamide * Other: See Comments, Rash Tramadol Hives, Rash Trazodone Hives, Rash (home) [phone] (cell) The patients preferred pharmacy has been captured for this encounter? yes Request is for script(s) to be escript to mail order [facility]. Gia Ayon LPN [facility] 08-28-2023 Miscellaneous Notes Last Office Visit Date: 08/17/2023 Last [facility] Health Visit: Visit date not found Has the patient had an appointment at [facility] in the past year, or do they have an upcoming appointment scheduled at [facility]? YES- Continue with refill request. Future Appointment: Visit date not found Pharmacy faxed requesting the following refill Refill(s) Requested: Requested Prescriptions Pending Prescriptions Disp Refills TRELEGY ELLIPTA 100-62.5-25 mcg inhalation powder 60 Each 1 Sig: Inhale 1 Puff as instructed once daily. ALLERGIES Allergen Reactions Hydrocodone Vomiting Naproxen Anaphylaxis Sulfa (Sulfonamide * Other: See Comments, Rash Tramadol Hives, Rash Trazodone Hives, Rash (home) [phone] (cell) The patients preferred pharmacy has been captured for this encounter? yes Request is for script(s) to be escript to mail order [facility]. Gia Ayon LPN documented in this encounter [facility] 08-26-2023 Note Formatting of this n ote might be different from the original. August 26, 2023 PID: [id number] Aurelio Bhakta [address] [place] [address] Dear Paris Tangen, We are pleased to inform you that the results of your recent breast imaging exam on 08/25/2023 are normal. Early detection of cancer is very important. We also understand recommendations regarding breast cancer screening are controversial. Please discuss with your primary care provider which strategy is best for you and whether a mammogram is right for you. Your imaging studies and report will be kept on file at [facility] as part of your permanent medical record and are available for your continuing care. Thank you for allowing us to help in meeting your health care needs. Sincerely, Dr. Singer Interpreting Radiologist [facility] (Normal over 40) [facility] 08-26-2023 Miscellaneous Notes August 26, 2023 PID: [id number] Aurelio Bhakta [address] [place] [address] Dear Ms. Bhakta, We are pleased to inform you that the results of your recent breast imaging exam on 08/25/2023 are normal. Early detection of cancer is very important. We also understand recommendations regarding breast cancer screening are controversial. Please discuss with your primary care provider which strategy is best for you and whether a mammogram is right for you. Your imaging studies and report will be kept on file at [facility] as part of your permanent medical record and are available for your continuing care. Thank you for allowing us to help in meeting your health care needs. Sincerely, Dr. Singer Interpreting Radiologist [facility] (Normal over 40) documented in this encounter [facility] 08-23-2023 Note HNO ID: [id number] Author: CHRIS RAZA MD Service: ? Author Type: Physician Type: Progress Notes Filed: 08/23/2023 15:41 Note Text: Attending Note I discussed with resident on 08/17/2023. The patient was not examined by the attending. I reviewed the resident's note. I agree with the resident's assessment and plan unless otherwise noted. Signature: Chris Raza MD Date: 08/23/2023 Time: 3:41 PM [facility] 08-22-2023 Telephone encounter Note She can be set up with either Dr. Jain or Dr. Gonzalez! Thanks so much! Epi, Marvel Sam DO [facility] 08-21-2023 Telephone encounter Note Last Office Visit Date: 08/17/2023 Last Distance Health Visit: Visit date not found Has the patient had an appointment at [facility] in the past year, or do they have an upcoming appointment scheduled at [facility]? YES- Continue with refill request. Future Appointment: Visit date not found Pharmacy faxed requesting the following refill Refill(s) Requested: Requested Prescriptions Pending Prescriptions Disp Refills albuterol HFA (PROVENTIL HFA, VENTOLIN HFA) 90 mcg/actuation inhaler 1 Each 1 Sig: Inhale 2 Puffs as instructed every 6 hours as needed. hydrOXYzine HCl (ATARAX) 50 mg tablet 120 tablet 1 Sig: Take 1 tablet by mouth four times a day as needed. ALLERGIES Allergen Reactions Hydrocodone Vomiting Naproxen Anaphylaxis Sulfa (Sulfonamide * Other: See Comments, Rash Tramadol Hives, Rash Trazodone Hives, Rash (home) [phone] (cell) The patients preferred pharmacy has been captured for this encounter? yes Request is for script(s) to be escript to pharmacy. Racheal Zaldivar LPN [facility] 08-21-2023 Miscellaneous Notes Last Office Visit Date: 08/17/2023 Last [facility] Health Visit: Visit date not found Has the patient had an appointment at [facility] in the past year, or do they have an upcoming appointment scheduled at [facility]? YES- Continue with refill request. Future Appointment: Visit date not found Pharmacy faxed requesting the following refill Refill(s) Requested: Requested Prescriptions Pending Prescriptions Disp Refills albuterol HFA (PROVENTIL HFA, VENTOLIN HFA) 90 mcg/actuation inhaler 1 Each 1 Sig: Inhale 2 Puffs as instructed every 6 hours as needed. hydrOXYzine HCl (ATARAX) 50 mg tablet 120 tablet 1 Sig: Take 1 tablet by mouth four times a day as needed. ALLERGIES Allergen Reactions Hydrocodone Vomiting Naproxen Anaphylaxis Sulfa (Sulfonamide * Other: See Comments, Rash Tramadol Hives, Rash Trazodone Hives, Rash (home) [phone] (cell) The patients preferred pharmacy has been captured for this encounter? yes Request is for script(s) to be escript to pharmacy. Racheal Zaldivar LPN documented in this encounter [facility] 08-20-2023 Telephone encounter Note Patient called asking which provider Dr Sam was referring to her. Patient wants to set up her follow up/transfer to new PCP resident in November. Patient could not remember name. Did you have someone specific in mind. She notes that it is another female provider. Thanks. Almas Santizo LPN 08/20/23 2:29 PM [facility] 08-17-2023 History of Present illness Narrative Images from the original note were not included. [facility] Marvel Sam DO ASSESSMENT/PLAN: 1. Type 2 diabetes mellitus without complication, without long-term current use of insulin ([facility]) - ICD9: 250.00, ICD10: E11.9 (primary diagnosis) - Hemoglobin A1c 6.6% as of 06/2023 [obtained by a [facility] nurse, documented in a telephone encounter], from 6.1% on 03/23/2023 - Continue current medications: presently not on any hypoglycemics [she is prone to GI upset, and did not tolerate metformin or Ozempic], but continue her Crestor 10mg - Blood glucose monitoring on a once daily schedule - Counseled on healthy diet and regular exercise - Discussed need for and benefit of weight loss [BMI 31.43 kg/(m^2)] - ALBUMIN/CREATININE RATIO, URINE 2. Encounter for screening mammogram for breast cancer - ICD9: V76.12, ICD10: Z12.31 - AYANA SCREENING 3. Class 2 severe obesity due to excess calories with serious comorbidity and body mass index (BMI) of 36.0 to 36.9 in adult ([facility]) - ICD9: 278.01, V85.36, ICD10: E66.01, Z68.36 - Weight presently 186 lbs, up from 175 lb in 02/2024 - Previously followed with Obesity Medicine, felt that she was not having any success - Counseled extensively on diet and exercise; has been having some trouble doing her daily walking [which is how she used to exercise] due to her knee arthritis so we discussed swimming as an alternative [and addressing the knee with her Orthopedist] 4. Advance care planning - ICD9: V65.49, ICD10: Z71.89 - ADVANCE CARE PLAN DISCUSSION - Majority of her adult children would be her decision-makers - FULL CODE 5. Chronic obstructive pulmonary disease, unspecified COPD type (HCC) - ICD9: 496, ICD10: J44.9 - Seeing Pulmonology / Smoking Cessation, who is starting her on Wellbutrin [she picked up the prescription, but has not taken it yet] - Has a visit set up for Lung Cancer Screening - Continue home Trelegy Ellipta and montelukast 6. Anxiety - ICD9: 300.00, ICD10: F41.9 7. Depression, major, single episode, moderate (HCC) - ICD9: 296.22, ICD10: F32.1 8. Depression screen - ICD9: V79.0, ICD10: Z13.31 - Weaned herself off of her hydroxyzine, and has overall been doing well - Will be starting Wellbutrin as a part of her smoking cessation plan - BEHAVIORAL HEALTH SCREENING unremarkable 9. Chronic bilateral lower extremity edema - Continue Bumaurice Sam DO PGY-3 SUBJECTIVE: Aurelio Bhakta is a 63 year old female here today for a 3-month follow-up. HPI Ms. Bhakta is a 63-year-old female with a past medical history significant for intellectual disability, COPD, tobacco dependence, peptic ulcer disease, anxiety, depression, osteoarthritis of the right knee [sees Ortho and gets injections], adhesive capsulitis of the right shoulder, chronic bilateral lower extremity edema, essential hypertension, hyperlipidemia, iron deficiency anemia, GERD, and obesity. She presents today for a 3-month follow-up, and she has no particular complaints or concerns. Health Maintenance: - Had colonoscopy / EGD done in 09/2021 when she was having her GI symptoms, both unremarkable PAST MEDICAL HISTORY Diagnosis Date Anxiety state Elevated cholesterol Essential hypertension Prediabetes PAST SURGICAL HISTORY Procedure Laterality Date >=3 1989 2 C-Sections REPAIR ROTATOR CUFF,ACUTE 2020 Social History Tobacco Use Smoking status: Every Day Packs/day: 1.00 Years: 40.00 Additional pack years: 0.00 Total pack years: 40.00 Types: Cigarettes Smokeless tobacco: Never Vaping Use Vaping Use: Never used Substance Use Topics Alcohol use: Not Currently Drug use: Not Currently FAMILY HISTORY Problem Relation Age of Onset Hypertension Mother Hypertension Sister Diabetes Sister Macular Degen Sister Detached Retina Sister Cataract Sister Cataract Maternal Grandmother Glaucoma No Family History PAIN EVALUATION No data found in the last 1 encounters. ALLERGIES Allergen Reactions Hydrocodone Vomiting Naproxen Anaphylaxis Sulfa (Sulfonamide * Other: See Comments, Rash Tramadol Hives, Rash Trazodone Hives, Rash Medication List prior to visit Current Outpatient Medications Medication Sig metoprolol succinate ER (TOPROL XL) 25 mg 24 hr tablet Take 1 tablet by mouth once daily. montelukast (SINGULAIR) 10 mg tablet Take 1 tablet by mouth daily at bedtime. rosuvastatin (CRESTOR) 10 mg tablet Take 1 tablet by mouth once daily. [START ON 08/27/2023] buPROPion SR (WELLBUTRIN SR) 150 mg 12 hr tablet Take 1 tablet by mouth two times a day. Patient should start on August 27, 2023. albuterol HFA (PROVENTIL HFA, VENTOLIN HFA) 90 mcg/actuation inhaler Inhale 2 Puffs as instructed every 6 hours as needed. TRELEGY ELLIPTA 100-62.5-25 mcg inhalation powder Inhale 1 Puff as instructed once daily. valsartan (DIOVAN) 80 mg tablet Take 1 tablet by mouth once daily. bumetanide (BUMEX) 1 mg tablet Take 1 tablet by mouth once daily. bumetanide (BUMEX) 1 mg tablet Take 1.5 tablets by mouth once daily. (Patient not taking: Reported on 08/17/2023) esomeprazole (NEXIUM) 40 mg capsule Take 1 capsule by mouth once daily. (Patient not taking: Reported on 08/17/2023) buPROPion SR (WELLBUTRIN SR) 150 mg 12 hr tablet Take one tablet daily for 3 days, then one tablet by mouth twice daily (Begin two weeks prior to quit date) (Patient not taking: Reported on 08/17/2023) ferrous sulfate 325 mg (65 mg iron) tablet Take by mouth. (Patient not taking: Reported on 08/17/2023) No current facility-administered medications for this visit. I have confirmed and edited as necessary the chief complaint, medications, past medical, family and social histories. Review of Systems Constitutional: Negative for activity change, appetite change, chills, diaphoresis, fatigue, fever and unexpected weight change. HENT: Negative for congestion, sneezing, sore throat and trouble swallowing. Eyes: Negative for pain, discharge and visual disturbance. Respiratory: Negative for cough, shortness of breath and wheezing. Cardiovascular: Positive for leg swelling (chronic, takes her Bumex). Negative for chest pain and palpitations. Gastrointestinal: Negative for abdominal pain, constipation, diarrhea, nausea and vomiting. Endocrine: Negative for polydipsia, polyphagia and polyuria. Genitourinary: Negative for difficulty urinating, dysuria and flank pain. Musculoskeletal: Positive for arthralgias (chronic pains in right shoulder and right knee). Negative for myalgias, neck pain and neck stiffness. Skin: Negative for rash and wound. Allergic/Immunologic: Negative for immunocompromised state. Neurological: Negative for dizziness, weakness, light-headedness and headaches. Hematological: Negative for adenopathy. Does not bruise/bleed easily. Psychiatric/Behavioral: Negative for confusion and dysphoric mood. The patient is not nervous/anxious. OBJECTIVE: BP 118/56 Pulse 82 Temp 36.7 C (98 F) Resp 18 Ht 163.8 cm (5' 4.5) Wt 84.4 kg (186 lb) SpO2 96% BMI 31.43 kg/m Last Wt 08/17/23 : 84.4 kg (186 lb) 07/28/23 : 83.5 kg (184 lb) 06/23/23 : 83.7 kg (184 lb 9.6 oz) Last BP 08/17/23 : 118/56 07/28/23 : 110/66 06/23/23 : 138/78 Physical Exam Vitals reviewed. Constitutional: General: She is not in acute distress. Appearance: She is obese. She is not ill-appearing or diaphoretic. HENT: Head: Normocephalic and atraumatic. Right Ear: Tympanic membrane, ear canal and external ear normal. Left Ear: Tympanic membrane, ear canal and external ear normal. Nose: Nose normal. Mouth/Throat: Mouth: Mucous membranes are moist. Pharynx: Oropharynx is clear. Eyes: Extraocular Movements: Extraocular movements intact. Conjunctiva/sclera: Conjunctivae normal. Pupils: Pupils are equal, round, and reactive to light. Neck: Comments: Thyroid symmetric, not enlarged. Cardiovascular: Rate and Rhythm: Normal rate and regular rhythm. Pulses: Normal pulses. Heart sounds: Normal heart sounds. Pulmonary: Effort: Pulmonary effort is normal. No respiratory distress. Breath sounds: Normal breath sounds. No wheezing, rhonchi or rales. Chest: Chest wall: No tenderness. Abdominal: General: Bowel sounds are normal. There is no distension. Palpations: Abdomen is soft. Tenderness: There is no abdominal tenderness. There is no right CVA tenderness or left CVA tenderness. Genitourinary: Comments: Deferred. Musculoskeletal: Cervical back: Normal range of motion and neck supple. No rigidity or tenderness. Right lower leg: Edema (trace) present. Left lower leg: Edema (trace) present. Comments: ROM mildly limited in right shoulder, right knee with some crepitus Lymphadenopathy: Cervical: No cervical adenopathy. Skin: General: Skin is warm and dry. Capillary Refill: Capillary refill takes less than 2 seconds. Neurological: General: No focal deficit present. Mental Status: She is alert and oriented to person, place, and time. Psychiatric: Mood and Affect: Mood normal. Behavior: Behavior normal. Thought Content: Thought content normal. 04/29/2023 08/17/2023 PHQ-9 All Questions Little interest or pleasure in doing things 1 0 Feeling down, depressed, or hopeless 0 0 (0-4) minimal depression, (5-9) mild depression, (10-14) moderate depression, (15-19) moderately severe depression, (20-27) severe depression Screening tool completed by provider on patient's behalf. Based on the PHQ-2 score and patient interview, patient is already diagnosed with depression. Screening tool discussed with patient, and I recommended continuing current plan of care. There are no discontinued medications. Return in about 3 months (around 11/17/2023) for Regular follow-up. Discussed the above with the patient and my preceptor using shared decision-making. The patient is in agreement with the diagnostic and treatment plans. Marvel Sam DO, signed on August 21, 2023 7:46 AM documented in this encounter [facility] 08-17-2023 Note HNO ID: [id number] Author: MARVEL SAM DO Service: ? Author Type: Resident Type: Progress Notes Filed: 08/21/2023 08:03 Note Text: [facility] Marvel Sam DO ASSESSMENT/PLAN: 1. Type 2 diabetes mellitus without complication, without long-term current use of insulin ([facility]) - ICD9: 250.00, ICD10: E11.9 (primary diagnosis) - Hemoglobin A1c 6.6% as of 06/2023 [obtained by a [facility] nurse, documented in a telephone encounter], from 6.1% on 03/23/2023 - Continue current medications: presently not on any hypoglycemics [she is prone to GI upset, and did not tolerate metformin or Ozempic], but continue her Crestor 10mg - Blood glucose monitoring on a once daily schedule - Counseled on healthy diet and regular exercise - Discussed need for and benefit of weight loss [BMI 31.43 kg/(m2)] - ALBUMIN/CREATININE RATIO, URINE 2. Encounter for screening mammogram for breast cancer - ICD9: V76.12, ICD10: Z12.31 - AYANA SCREENING 3. Class 2 severe obesity due to excess calories with serious comorbidity and body mass index (BMI) of 36.0 to 36.9 in adult ([facility]) - ICD9: 278.01, V85.36, ICD10: E66.01, Z68.36 - Weight presently 186 lbs, up from 175 lb in 02/2024 - Previously followed with Obesity Medicine, felt that she was not having any success - Counseled extensively on diet and exercise; has been having some trouble doing her daily walking [which is how she used to exercise] due to her knee arthritis so we discussed swimming as an alternative [and addressing the knee with her Orthopedist] 4. Advance care planning - ICD9: V65.49, ICD10: Z71.89 - ADVANCE CARE PLAN DISCUSSION - Majority of her adult children would be her decision-makers - FULL CODE 5. Chronic obstructive pulmonary disease, unspecified COPD type ([facility]) - ICD9: 496, ICD10: J44.9 - Seeing Pulmonology / Smoking Cessation, who is starting her on Wellbutrin [she picked up the prescription, but has not taken it yet] - Has a visit set up for Lung Cancer Screening - Continue home Trelegy Ellipta and montelukast 6. Anxiety - ICD9: 300.00, ICD10: F41.9 7. Depression, major, single episode, moderate (HCC) - ICD9: 296.22, ICD10: F32.1 8. Depression screen - ICD9: V79.0, ICD10: Z13.31 - Weaned herself off of her hydroxyzine, and has overall been doing well - Will be starting Wellbutrin as a part of her smoking cessation plan - BEHAVIORAL HEALTH SCREENING unremarkable 9. Chronic bilateral lower extremity edema - Continue Bumex Marvel Sam, PGY-3 SUBJECTIVE: Aurelio Bhakta is a 63 year old female here today for a 3-month follow-up. HPI Ms. Bhakta is a 63-year-old female with a past medical history significant for intellectual disability, COPD, tobacco dependence, peptic ulcer disease, anxiety, depression, osteoarthritis of the right knee [sees Ortho and gets injections], adhesive capsulitis of the right shoulder, chronic bilateral lower extremity edema, essential hypertension, hyperlipidemia, iron deficiency anemia, GERD, and obesity. She presents today for a 3-month follow-up, and she has no particular complaints or concerns. Health Maintenance: - Had colonoscopy / EGD done in 09/2021 when she was having her GI symptoms, both unremarkable PAST MEDICAL HISTORY Diagnosis Date Anxiety state Elevated cholesterol Essential hypertension Prediabetes PAST SURGICAL HISTORY Procedure Laterality Date >=3 1989 2 C-Sections REPAIR ROTATOR CUFF,ACUTE 2020 Social History Tobacco Use Smoking status: Every Day Packs/day: 1.00 Years: 40.00 Additional pack years: 0.00 Total pack years: 40.00 Types: Cigarettes Smokeless tobacco: Never Vaping Use Vaping Use: Never used Substance Use Topics Alcohol use: Not Currently Drug use: Not Currently FAMILY HISTORY Problem Relation Age of Onset Hypertension Mother Hypertension Sister Diabetes Sister Macular Degen Sister Detached Retina Sister Cataract Sister Cataract Maternal Grandmother Glaucoma No Family History PAIN EVALUATION No data found in the last 1 encounters. ALLERGIES Allergen Reactions Hydrocodone Vomiting Naproxen Anaphylaxis Sulfa (Sulfonamide * Other: See Comments, Rash Tramadol Hives, Rash Trazodone Hives, Rash Medication List prior to visit Current Outpatient Medications Medication Sig metoprolol succinate ER (TOPROL XL) 25 mg 24 hr tablet Take 1 tablet by mouth once daily. montelukast (SINGULAIR) 10 mg tablet Take 1 tablet by mouth daily at bedtime. rosuvastatin (CRESTOR) 10 mg tablet Take 1 tablet by mouth once daily. [START ON 08/27/2023] buPROPion SR (WELLBUTRIN SR) 150 mg 12 hr tablet Take 1 tablet by mouth two times a day. Patient should start on August 27, 2023. albuterol HFA (PROVENTIL HFA, VENTOLIN HFA) 90 mcg/actuation inhaler Inhale 2 Puffs as instructed every 6 hours as needed. TRELEGY ELLIPTA 100-62.5-25 mcg inhalation powder Inhale 1 Puff as instructed once daily. valsarta (more content not included)... [facility] 08-03-2023 Telephone encounter Note Last Office Visit Date: 04/29/2023 Last Distance Health Visit: Visit date not found Has the patient had an appointment at [facility] in the past year, or do they have an upcoming appointment scheduled at [facility]? YES- Continue with refill request. Future Appointment: 08/17/2023 Rx mail pharmacy faxed requesting the following refill Refill(s) Requested: Requested Prescriptions Pending Prescriptions Disp Refills montelukast (SINGULAIR) 10 mg tablet 90 tablet 1 Sig: Take 1 tablet by mouth daily at bedtime. rosuvastatin (CRESTOR) 10 mg tablet 90 tablet 1 Sig: Take 1 tablet by mouth once daily. ALLERGIES Allergen Reactions Hydrocodone Vomiting Naproxen Anaphylaxis Sulfa (Sulfonamide * Other: See Comments, Rash Tramadol Hives, Rash Trazodone Hives, Rash (home) [phone] (cell) The patients preferred pharmacy has been captured for this encounter? yes Request is for script(s) to be escript to mail order [facility]. Almas Santizo LPN [facility] 08-03-2023 Miscellaneous Notes Last Office Visit Date: 04/29/2023 Last Distance Health Visit: Visit date not found Has the patient had an appointment at [facility] in the past year, or do they have an upcoming appointment scheduled at [facility]? YES- Continue with refill request. Future Appointment: 08/17/2023 Rx mail pharmacy faxed requesting the following refill Refill(s) Requested: Requested Prescriptions Pending Prescriptions Disp Refills montelukast (SINGULAIR) 10 mg tablet 90 tablet 1 Sig: Take 1 tablet by mouth daily at bedtime. rosuvastatin (CRESTOR) 10 mg tablet 90 tablet 1 Sig: Take 1 tablet by mouth once daily. ALLERGIES Allergen Reactions Hydrocodone Vomiting Naproxen Anaphylaxis Sulfa (Sulfonamide * Other: See Comments, Rash Tramadol Hives, Rash Trazodone Hives, Rash (home) [phone] (cell) The patients preferred pharmacy has been captured for this encounter? yes Request is for script(s) to be escript to mail order [facility]. Alams Santizo LPN documented in this encounter [facility] 08-03-2023 Telephone encounter Note Last Office Visit Date: 04/29/2023 Last [facility] Visit: Visit date not found Has the patient had an appointment at [facility] in the past year, or do they have an upcoming appointment scheduled at [facility]? YES- Continue with refill request. Future Appointment: 08/17/2023 Patient called requesting the following refill Refill(s) Requested: Requested Prescriptions Pending Prescriptions Disp Refills bumetanide (BUMEX) 1 mg tablet 135 tablet 0 Sig: Take 1.5 tablets by mouth once daily. metoprolol succinate ER (TOPROL XL) 25 mg 24 hr tablet 90 tablet 1 Sig: Take 1 tablet by mouth once daily. esomeprazole (NEXIUM) 40 mg capsule 90 capsule 1 Sig: Take 1 capsule by mouth once daily. ALLERGIES Allergen Reactions Hydrocodone Vomiting Naproxen Anaphylaxis Sulfa (Sulfonamide * Other: See Comments, Rash Tramadol Hives, Rash Trazodone Hives, Rash (home) [phone] (cell) The patients preferred pharmacy has been captured for this encounter? yes Request is for script(s) to be escript to mail order [facility]. Marilyn Duran [facility] 08-03-2023 Miscellaneous Notes Last Office Visit Date: 04/29/2023 Last Distance Health Visit: Visit date not found Has the patient had an appointment at [facility] in the past year, or do they have an upcoming appointment scheduled at [facility]? YES- Continue with refill request. Future Appointment: 08/17/2023 Patient called requesting the following refill Refill(s) Requested: Requested Prescriptions Pending Prescriptions Disp Refills bumetanide (BUMEX) 1 mg tablet 135 tablet 0 Sig: Take 1.5 tablets by mouth once daily. metoprolol succinate ER (TOPROL XL) 25 mg 24 hr tablet 90 tablet 1 Sig: Take 1 tablet by mouth once daily. esomeprazole (NEXIUM) 40 mg capsule 90 capsule 1 Sig: Take 1 capsule by mouth once daily. ALLERGIES Allergen Reactions Hydrocodone Vomiting Naproxen Anaphylaxis Sulfa (Sulfonamide * Other: See Comments, Rash Tramadol Hives, Rash Trazodone Hives, Rash (home) [phone] (cell) The patients preferred pharmacy has been captured for this encounter? yes Request is for script(s) to be escript to mail order [facility]. Marilyn Duran documented in this encounter [facility] 07-28-2023 Instructions Patience Alexander PA-C - 07/28/2023 10:14 AM EDT Bupropion What is this medicine? BUPROPION is a smoking cessation aid. It can also be used to treat mood disorders such as depression. Common brand names for bupropion include Zyban and Wellbutrin . What should I tell my health care provider before I take this medicine? Tell your health care provider what health conditions you have, including (but not limited to): an eating disorder, such as anorexia or bulimia head injury or brain tumor seizures suicidal thoughts or a previous suicide attempt How should I use this medicine? You can take this medicine with or without food. Swallow your tablet whole (do not crush, chew, or divide). Where should I keep my medicine? Keep out of the reach of children. Store at room temperature, away from light and moisture. Throw away any unused medicine after the expiration date. What may interact with this medicine? A number of medications can interact with bupropion. Do not take this medicine with any of the following medications: linezolid MAOIs such as Azilect , Eldepryl , Marplan , Nardil , and Parnate methylene blue (injected into a vein) other medicines that contain bupropion This list does not describe all possible interactions. Give your health care provider a list of all the medicines, herbs, non-prescription drugs, or dietary supplements you use. Also tell them if you smoke, drink alcohol, or use illegal drugs. Some of these substances may interact with your medicine. What should I watch for while using this medicine? Tell your health care provider if you are unable to quit smoking after seven weeks of taking bupropion. Visit your health care provider for regular checks on your progress. Watch out for new or worsening thoughts of suicide or depression. Also watch out for sudden changes in feelings such as feeling anxious, agitated, panicky, irritable, hostile, aggressive, impulsive, severely restless, overly excited and hyperactive, or not being able to sleep. If this happens, especially at the beginning of treatment or after a change in dose, call your health care provider. Avoid alcoholic drinks while taking this medicine. Drinking excessive alcoholic beverages, using sleeping or anxiety medicines, or quickly stopping the use of these agents while taking this medicine may increase your risk for a seizure. Do not drive or use heavy machinery until you know how this medicine affects you. This medicine can impair your ability to perform these tasks. Do not take this medicine close to bedtime. It may prevent you from sleeping. Your mouth may get dry. Chewing sugarless gum or sucking hard candy, and drinking plenty of water may help. What side effects may I notice from receiving this medicine? Notify your health care provider if you notice any side effects from taking this medication. Possible side effects include fast or irregular heartbeat, difficulty sleeping, headache, agitation, dizziness, sweating, weight loss, dry mouth, constipation, nausea, vomiting, tremor, and blurred vision. Seek medical attention right away if you have an allergic reaction like skin rash, itching or hives, swelling of the face, lips, or tongue, or breathing problems after taking bupropion. Watch for changes in mood and increased blood pressure. Notify health care provider immediately if you have a seizure while taking this medication. This list does not describe all possible side effects. Contact your health care provider or pharmacist for medical advice about side effects. This sheet is a summary and does not cover all possible information. A Medication Guide will be given to you with each prescription. Read the information carefully. If you have additional questions about this medicine, talk to your healthcare provider or pharmacist. You may ask your primary care provider for a referral to a clinical pharmacist for a comprehensive review of all your medications. documented in this encounter [facility] 07-28-2023 History of Present illness Narrative Images from the original note were not included. [facility] SMOKING CESSATION PROGRAM FOLLOW UP VISIT July 27, 2023 HPI: Aurelio Bhakta is a 63 year old female who presents to the office today for a follow up visit for smoking cessation. Patient's initial visit was on 06/23/2023. Patient was prescribed Chantix and nicotine lozenges for smoking cessation during last visit. She never received the lozenges. Patient reports side effects Yes. If yes, side effects include headaches, bloating and GI distress. Quit? No. If no, current tobacco use 11-20 cigarettes / day (1/2-1 Pack) which is cut down from previous visit. How many cigarettes do you smoke? 0: 10 or fewer 1: 11-20 2: 21-30 3: >=31 How soon after waking up do you smoke your first cigarette of the day? 0: after 60 minutes 1: 31-60 minutes 2: 6-30 minutes 3: within 5 minutes Level of nicotine dependence is computed by adding the scores together as follows: 0-2 = low nicotine dependence 3-4 = moderate nicotine dependence 5-6 = high nicotine dependence Heaviness of Smoking Index: moderate TRIGGERS: Being around smokers/smoking, Stress, and driving Smokes after meals. PMH: PAST MEDICAL HISTORY Diagnosis Date Anxiety state Elevated cholesterol Essential hypertension Prediabetes PAST SURGICAL HX: PAST SURGICAL HISTORY Procedure Laterality Date >=3 1989 2 C-Sections REPAIR ROTATOR CUFF,ACUTE 2020 MEDICATIONS: bumetanide (BUMEX) 1 mg tablet Take 1.5 tablets by mouth once daily. metoprolol succinate ER (TOPROL XL) 25 mg 24 hr tablet Take 1 tablet by mouth once daily. varenicline (CHANTIX STARTING MONTH BOX) 0.5 mg (11)- 1 mg (42) tablet Use as directed. varenicline (CHANTIX CONTINUING MONTH BOX) 1 mg tablet Take 1 tablet by mouth two times a day. albuterol HFA (PROVENTIL HFA, VENTOLIN HFA) 90 mcg/actuation inhaler Inhale 2 Puffs as instructed every 6 hours as needed. hydrOXYzine HCl (ATARAX) 50 mg tablet Take 1 tablet by mouth four times a day as needed. TRELEGY ELLIPTA 100-62.5-25 mcg inhalation powder Inhale 1 Puff as instructed once daily. valsartan (DIOVAN) 80 mg tablet Take 1 tablet by mouth once daily. bumetanide (BUMEX) 1 mg tablet Take 1 tablet by mouth once daily. esomeprazole (NEXIUM) 40 mg capsule Take 1 capsule by mouth once daily. montelukast (SINGULAIR) 10 mg tablet Take 1 tablet by mouth daily at bedtime. rosuvastatin (CRESTOR) 10 mg tablet Take 1 tablet by mouth once daily. ferrous sulfate 325 mg (65 mg iron) tablet Take by mouth. (Patient not taking: Reported on 06/22/2023) ALLERGIES: Allergies: Hydrocodone Vomiting Naproxen Anaphylaxis Sulfa (Sulfonamide * Other: See Comments, Rash Tramadol Hives, Rash Trazodone Hives, Rash FAM HX: FAMILY HISTORY Problem Relation Age of Onset Hypertension Mother Hypertension Sister Diabetes Sister Macular Degen Sister Detached Retina Sister Cataract Sister Cataract Maternal Grandmother Glaucoma No Family History SOCIAL HX: Social History Tobacco Use Smoking status: Every Day Packs/day: 1.00 Years: 40.00 Additional pack years: 0.00 Total pack years: 40.00 Types: Cigarettes Smokeless tobacco: Never Vaping Use Vaping Use: Never used Substance Use Topics Alcohol use: Not Currently Drug use: Not Currently PHYSICAL EXAM: BP 110/66 (BP Site: Right Arm, BP Position: Sitting, BP Cuff Size: Regular Adult) Pulse 66 Resp 19 Wt 83.5 kg (184 lb) SpO2 93% BMI 31.10 kg/m Gen: No acute distress. Cooperative with examination. HEENT: Oral hygeine and dentition poor. No thrush. Resp: No stridor, accessory respiratory muscle use, supra-sternal or intercostal retractions. No wheezes, crackles. CV: Regular rythm. Heart tones normal. Radial pulses normal. Ext: Warm and well perfused. No clubbing, cyanosis, edema. Skin: No rash, ecchymoses. Neuro: Mental status normal. Affect normal. No tremor. IMPRESSION/PLAN: TOBACCO USE DISORDER/NICOTINE DEPENDENCE - Severity of nicotine dependence: Moderate - Smoking cessation methods including Bupropion and Behavior Modification were discussed with the patient and assistance offered. The patient is currently ready to quit. - Treatment plan: Bupropion (Wellbutrin) Patient is willing to try Wellbutrin. She states previously she gained weight. We discussed the importance of stopping smoking and we will then deal with any weight gain. I instructed her to change her beverage intake from juices and sweet tea to water and unsweetened tea. - Patient is agreeable to consult to lung cancer screening as well as getting PFTs. Currently her Trelegy is managed by PCP. She is seen at the [facility] and is interested in a PCP closer to home. However, I am not sure if there are any PCPs who are accepting new patients at this time. I directed her to our PSS staff to inquire. Follow Up: 6 weeks Patience Alexander PA-C CC No referring provider defined for this encounter. and Chris Raza MD via [email or web address] documented in this encounter [facility] 06-30-2023 Miscellaneous Notes I called and spoke with the patient. Message from Patience Alexander given and patient verbalized understanding. Images from the original note were not included. Patience Alexander PA-C You; [facility] Pulmonology Pool 13 hours ago (8:04 PM) This does not sound like it is related to nicotine lozenges. But she may hold off on the lozenges. Chari Patient called in stating she was started on Nicotine Lozenge last week. Yesterday she had a headache, dry mouth, bloating, very gassy, severe abdominal pain, could hardly walk. She took a laxative and had a bowel movement, but her pain was still there. She almost ended up going to the ED. Today her pain is improved, but she does not want to go through that again. She is asking if she should continue with this medication? Patient can be reached back at [phone] documented in this encounter [facility] 06-23-2023 Instructions Patience Alexander PA-C - 06/23/2023 10:33 AM EDT Images from the original note were not included. SMOKING CESSATION Stopping smoking is the most important thing you can do to protect your current and future health, as well as that of your family. It is the most potent risk factor for the future development of coronary artery disease and heart attacks. Smoking is both an addiction and a learned behavior. The nicotine withdrawal takes anywhere from 2-4 weeks and results in symptoms such as irritability, fatigue, insomnia, coughing, dizziness, poor concentration, hunger and cigarette cravings. After the nicotine withdrawal period, the learned linkage between certain acts or situations and cigarette use remain. Strategies to deal with these must be developed along with new behaviors to ensure successful smoking cessation. STRATEGIES TOWARD SMOKING CESSATION - Make a list of the reasons why you want to quit, plus the benefits to be gained, and compare them to the reasons why you should continue to smoke. - Pick a specific quit date. - If you are interested in using nicotine patches or gum to assist with the nicotine withdrawal, let the staff know. - Inform friends, family, and co-workers that you are quitting and when your quit date is. Ask for their understanding and support. - Prepare your environment by removing all cigarettes prior to your quit date. - Prior to your quit date, avoid smoking in places where you spend a lot of time (such as the house, work, car). - From previous quit attempts, identify what helped you to stop smoking. - From previous quit attempts, identify what triggered relapse. How can you avoid that again? - What things (situations, emotions) do you anticipate will be most challenging, especially in the first few weeks, to your quitting effort? - What can you do to address these challenges? - Avoid (or limit) alcohol consumption during the quitting process. - If your spouse or close coworker currently smoke, consider quitting together or at the very least, develop specific plans to maintain your cigarette abstinence while in the home or at work. - Take each day, each hour, each craving, one at a time. Every step or action you take toward smoking cessation is a success. The only failure is the failure to try. - The health of you and your family, is worth the effort. STOP SMOKING CHECK LIST Preparing to Quit: ___ Make a personal pact with yourself to quit. ___ Pick a date for quitting completely. (My date to quit is ____.) ___ Write down on a card the three most important reasons for quitting. Carry the card with you from now on. Look at it several times a day. ___ Prior to quitting, eliminate smoking completely in 2 or 3 of your high risk situations. ___ Reduce consumption to one pack per day or less. ___ Change to a less desirable brand of cigarettes. ___ Discard your noodle catalyst maker. Use matches. Carry your cigarettes in a different place. ___ Spend a little time each day picturing in your mind stressful events occurring in the future and you not smoking. Actual Quitting: The First Two Weeks ___ Get rid of all cigarettes. Put away all smoking related objects such as ashtrays. Ask the people you live with not to smoke in your presence for the first two weeks. ___ Spend as much time as possible with non-smoking people. ___ Keep busy, especially on evenings and weekends. ___ Avoid high risk situations (large parties, bars, etc.). ___ Spend lots of time in places that prohibit or discourage smoking (e.g., theaters, libraries.) ___ Drink plenty of fluids. ___ Don't substitute food or sugar based products for cigarettes. Use approved substitutions. (... ice water, high bulk/low calorie foods, sugarless gum, mouthwash, brushing teeth.) ___ Begin or increase regular exercise program. ___ When experiencing withdrawal effects: 1. Remind yourself why you are quitting (from your card). 2. Remind yourself that whatever discomfort you are experiencing is only a tiny fraction of the probable discomfort associated with continued smoking. 3. Practice deep breathing or other relaxation techniques - tapes. ___ Remind yourself that you can free yourself from this unhealthy, expensive, messy habit and become a non-smoker. Maintenance of Quitting: After two weeks ___ Remind yourself that the desire to smoke is linked to a great many situations, people and emotional stress. ___ When you do have a desire to smoke, remember that it only lasts a few seconds: distract yourself and leave the situation if necessary. ___ After each desire to smoke has passed, pat yourself on the back, you have just made progress in breaking the habit forever. ___ Save the money on wasted on cigarettes in a special fund and buy yourself something nice. Maintenance of Quitting: After Two Months ___ Be particularly vigilant when unusual life events occur. (.. weddings, holidays, vacations.) ___ Be particularly vigilant when stressful life events occur (e.g., relationship problems, financial or work problems.) ___ Remind yourself regularly that not smoking is completely within your personal control. ___ Never lull yourself into thinking you are out of danger and you can safely have a cigarette or two. -- you cannot!!!!! ___ If, by chance, you do slip and have one or more cigarettes, do not conclude that all is lost. Return to complete abstinence immediately and learn from your experience. ___ If you have gained significant weight since quitting, now is the time to do something about it. ___ Each time you see a cigarettes advertisement, remind yourself of why you quit. Also remember that a powerful industry spends billions of dollars each year trying to get people like yourself re-hooked. documented in this encounter [facility] 06-23-2023 History of Present illness Narrative Images from the original note were not included. [facility] SMOKING CESSATION PROGRAM CONSULT NOTE I will communicate the consult note back to the requesting health care provider by way of the shared medical record for internal providers or letter via the [employer] for external providers. June 22, 2023 CONSULTING PHYSICIAN/REFERRAL: Chris Raza [address] [place] [address] REASON FOR CONSULT/REFERRAL: Tobacco Cessation Treatment HPI: Aurelio Bhakta is a 63 year old female who is a current smoker who presents to the office today for a smoking cessation consult. Patient states she is ready to quit smoking. Her brother is encouraging to quit. He quit approximately 14 years ago. She is on Trelegy and as needed Albuterol per PCP. No PFTs on file. Patient states she refuses. TOBACCO USE: TYPE: cigarettes QUANTITY: 1 -2 packs / day DURATION: 40 PACK YEARS: 40 How many cigarettes do you smoke? 0: 10 or fewer 1: 11-20 2: 21-30 3: >=31 How soon after waking up do you smoke your first cigarette of the day? 0: after 60 minutes 1: 31-60 minutes 2: 6-30 minutes 3: within 5 minutes Level of nicotine dependence is computed by adding the scores together as follows: 0-2 = low nicotine dependence 3-4 = moderate nicotine dependence 5-6 = high nicotine dependence Heaviness of Smoking Index: moderate HISTORY OF PRIOR TOBACCO TREATMENT: Yes TREATMENT: Cold Maben, Wellbutrin, Chantix, and NRT Patient did not tolerate Wellbutrin secondary to weight gain. She is unsure if she tolerated the Chantix. States it was prescribed while living in [place]. TRIGGERS: Stress, being around others who smoke, driving, after eating meals. PMH: PAST MEDICAL HISTORY Diagnosis Date Elevated cholesterol Essential hypertension Prediabetes PAST SURGICAL HX: PAST SURGICAL HISTORY Procedure Laterality Date >=1989 2 C-Sections REPAIR ROTATOR CUFF,ACUTE 2020 MEDICATIONS: albuterol HFA (PROVENTIL HFA, VENTOLIN HFA) 90 mcg/actuation inhaler Inhale 2 Puffs as instructed every 6 hours as needed. hydrOXYzine HCl (ATARAX) 50 mg tablet Take 1 tablet by mouth four times a day as needed. TRELEGY ELLIPTA 100-62.5-25 mcg inhalation powder Inhale 1 Puff as instructed once daily. valsartan (DIOVAN) 80 mg tablet Take 1 tablet by mouth once daily. bumetanide (BUMEX) 1 mg tablet Take 1.5 tablets by mouth once daily. bumetanide (BUMEX) 1 mg tablet Take 1 tablet by mouth once daily. esomeprazole (NEXIUM) 40 mg capsule Take 1 capsule by mouth once daily. metoprolol succinate ER (TOPROL XL) 25 mg 24 hr tablet Take 1 tablet by mouth once daily. montelukast (SINGULAIR) 10 mg tablet Take 1 tablet by mouth daily at bedtime. rosuvastatin (CRESTOR) 10 mg tablet Take 1 tablet by mouth once daily. ferrous sulfate 325 mg (65 mg iron) tablet Take by mouth. (Patient not taking: Reported on 06/22/2023) ALLERGIES: Allergies: Hydrocodone Vomiting Naproxen Anaphylaxis Sulfa (Sulfonamide * Other: See Comments, Rash Tramadol Hives, Rash Trazodone Hives, Rash FAM HX: FAMILY HISTORY Problem Relation Age of Onset Hypertension Mother Hypertension Sister Diabetes Sister Macular Degen Sister Detached Retina Sister Cataract Sister Cataract Maternal Grandmother Glaucoma No Family History SOCIAL HX: Social History Tobacco Use Smoking status: Every Day Packs/day: 1 Types: Cigarettes Smokeless tobacco: Never Vaping Use Vaping Use: Never used Substance Use Topics Alcohol use: Not Currently Drug use: Not Currently ROS: General: No fevers, chills or night sweats. No unintended weight loss. Eyes, Ears, nose, throat: No post nasal drip, rhinorrhea, purulent nasal discharge, epistaxis. Hoarseness. Vision stable. Cardiac: No angina, edema, orthopnea, chest pain. Resp: See HPI. GI: No heartburn, dysphagia. No nausea, vomiting. Occasional diarrhea. Musculoskeletal: Hip pain. Neuro: No headache, focal weakness, tremor. Skin: No skin changes or rash. Otherwise negative. PHYSICAL EXAM: BP 138/78 (BP Site: Right Arm, BP Position: Sitting, BP Cuff Size: Regular Adult) Pulse 84 Resp 19 Wt 83.7 kg (184 lb 9.6 oz) SpO2 94% BMI 31.20 kg/m Gen: No acute distress. Cooperative with examination. HEENT: Oral hygeine and dentition poor. No oral thrush. Resp: No stridor, accessory respiratory muscle use, supra-sternal or intercostal retractions. No wheezes, crackles. CV: Regular rythm. Heart tones normal. Radial pulses normal. MSK: No kyphoscoliosis. Ext: Warm and well perfused. No clubbing, cyanosis, edema. Skin: No rash, ecchymoses. Neuro: Mental status normal. Affect normal. No tremor. DATA: PFTs None on file IMPRESSION/PLAN: TOBACCO USE DISORDER/NICOTINE DEPENDENCE - Severity of nicotine dependence: Moderate - Smoking cessation methods including Nicotine Replacement Therapies, Bupropion, Varenicline, and Behavior Modification were discussed with the patient and assistance offered. The patient is currently ready to quit. - Treatment plan: Nicotine Lozenge and Varenicline (Chantix) Discussed with patient decreasing smoking by 50% every 4 weeks. Reviewed side effects and advised she stop the varenicline if she experiences any side effects. Declined referral to lung cancer screening. Will follow up in 4 weeks. Patience Alexander PA-C Pulmonary & Critical Care Medicine Respiratory [place] June 22, 2023 2:25 PM CC Chris Raza [address] [id number] and Chris Raza MD via [email or web address] documented in this encounter [facility] 06-22-2023 History of Present illness Narrative Associated Order(s): Large Joint Arthro/Inj: R knee joint Post-Procedure Diagnose(s): Primary osteoarthritis of right knee Large Joint Arthro/Inj: R knee joint Informed Consent Consent Obtained: Verbal [place] Protocol A moment to CARE was completed. SIGN IN Sign in communication not applicable due to emergent procedure. Personnel directly involved with the procedure wore the appropriate PPE. Special Equipment: N/A Patient/Surrogate Stated/Verified: Patient name, Date of , Relevant allergies and Intended procedure TIME OUT Intended patient and procedure match the source document(s). Consent documented and matches the intended procedure. Relevant labs, photos, and/or imaging studies have been reviewed. Correct side/site marked and visible. Medications required for procedure verified. No fire risk assessment and interventions applicable. No implant(s) inserted. 06/22/2023 10:18 AM The procedure site was prepped in the usual sterile fashion. Site: R knee joint Medications: 6 mg betamethasone acetate-betamethasone sodium phosphate 6 mg/mL Anesthetics: 5 mL lidocaine (PF) 10 mg/mL (1 %) Outcome: Tolerated well, no immediate complications Post-injection instructions were reviewed with the patient and the patient voiced understanding of these instructions. SIGN OUT All instruments, equipment, possible retained foreign bodies accounted for. AMB ROOMING INTAKE FLOWSHEET DATA Pain Pain Level: 7 Pain Location: Knee-Right Description: Aching, Pressure, Throbbing Duration Units: Minutes Frequency: Continuous Patient presents with: Right Knee - Follow Up, Injections Patient is 13 weeks post visit OA R knee with steroid injection given. Requesting repeat injection today. Injection provided relief for about 3 months. Pain reoccurred 1 month ago. documented in this encounter [facility] 06-12-2023 Miscellaneous Notes Please route telephone encounter to the Clerical Pool ([facility] Clerical Pool) Jared with [facility] house call nurse called to report the patient's A1c today was 6.6. Anabell Davis, Maintenance Engineer [employer] June 12, 2023 10:21 AM documented in this encounter [facility] 06-03-2023 Miscellaneous Notes [facility] called requesting refills of the patient's Hydroxyzine and Trelegy Ellipta medication. Last Office Visit Date: 04/29/2023 Last Distance Health Visit: Visit date not found Has the patient had an appointment at [facility] in the past year, or do they have an upcoming appointment scheduled at [facility]? YES- Continue with refill request. Future Appointment: 08/17/2023 Pharmacy called requesting the following refill Refill(s) Requested: Requested Prescriptions Pending Prescriptions Disp Refills albuterol HFA (PROVENTIL HFA, VENTOLIN HFA) 90 mcg/actuation inhaler 1 Each 1 Sig: Inhale 2 Puffs as instructed every 6 hours as needed. hydrOXYzine HCl (ATARAX) 50 mg tablet 120 tablet 1 Sig: Take 1 tablet by mouth four times a day as needed. TRELEGY ELLIPTA 100-62.5-25 mcg inhalation powder 60 Each 1 Sig: Inhale 1 Puff as instructed once daily. ALLERGIES Allergen Reactions Hydrocodone Vomiting Naproxen Anaphylaxis Sulfa (Sulfonamide * Other: See Comments, Rash Tramadol Hives, Rash Trazodone Hives, Rash (home) [phone] (cell) The patients preferred pharmacy has been captured for this encounter? yes Request is for script(s) to be escript to pharmacy. Jagdepe Orozco documented in this encounter [facility] 05-08-2023 Miscellaneous Notes Patient aware, agreed to call in a week. Marilyn Duran, Maintenance Engineer [employer] May 08, 2023 2:39 PM Thank you so much for passing these along. Per Dr. Raza, the concern was that maybe her pressures were running low, so he wanted her to send a week's worth of values. Overall, it looks like her pressures stabilized towards the end of the week - but since there was quite a large difference between the blood pressures recorded on the first couple of days compared to the last, we are going to have her record her blood pressures again for another week and send us the results. At that time, we can decide if anything needs to be adjusted. Thanks so much, Marvel Sam DO Patient called to report blood pressures: 05/01/23 152/83 05/02/23 162/90 05/04/23 124/74 05/05/23 121/101 05/06/23 130/76 Marilyn Duran, Maintenance Engineer [employer] May 06, 2023 9:42 AM documented in this encounter [facility] 05-08-2023 Miscellaneous Notes Last Office Visit Date: 04/29/2023 Last [facility] Visit: Visit date not found Has the patient had an appointment at [facility] in the past year, or do they have an upcoming appointment scheduled at [facility]? YES- Continue with refill request. Future Appointment: 08/17/2023 Pharmacy faxed requesting the following refill Refill(s) Requested: Requested Prescriptions Pending Prescriptions Disp Refills albuterol HFA (PROVENTIL HFA, VENTOLIN HFA) 90 mcg/actuation inhaler 1 Each 1 Sig: Inhale 2 Puffs as instructed every 6 hours as needed. ALLERGIES Allergen Reactions Hydrocodone Vomiting Naproxen Anaphylaxis Sulfa (Sulfonamide * Other: See Comments, Rash Tramadol Hives, Rash Trazodone Hives, Rash (home) [phone] (cell) The patients preferred pharmacy has been captured for this encounter? yes Request is for script(s) to be escript to pharmacy. Amada Archer LPN documented in this encounter [facility] 04-29-2023 Note HNO ID: [id number] Author: CHRIS RAZA MD Service: ? Author Type: Physician Type: Progress Notes Filed: 04/30/2023 09:13 Note Text: Chris Raza MD [facility] Date of Evaluation: 04/29/2023 Patient Name: Aurelio Bhakta : 1960 Chief Complaint: Patient presents with: Follow Up: Pain after making bowel movement Nursing Intake: There are no exam notes on file for this visit. Subjective Ms. Bhakta is a pleasant 63-year-old female who presents for follow-up. HPI Patient was last seen in our office on 12/16/2022. She was referred to physical therapy for adhesive capsulitis of her right shoulder. Patient states that she was unable to attend secondary to insurance issues. Her right shoulder still freezes occasionally, which she manages with movement exercises. Patient follows with Endocrinology for management of her diabetes (and undergoes foot examination with them). In-office A1c today 6.1%, down from 6.2% on 11/27/2022. Weight today 175 lbs, down from 189 lbs on 12/16/2022. Previously followed with Obesity Medicine, but no longer. Previously on semaglutide, but states she has not used it in three months. Blood pressure today 104/57 mm Hg, with similar reading on repeat measurement. Blood pressure has likely improved with continued weight loss, and patient is likely overmedicated. Was evaluated by Optometry on 12/18/2022 with bilateral cataracts noted, and no finding of diabetic retinopathy. She has to follow-up in 1 year. Previously on iron supplementation; however, not taking it secondary to constipation. Manages constipation with [id number] fiber supplementation. Has decreased her use of hydroxyzine to one daily. Social history: Smokes 1 pack/day for the past 47 years; no alcohol use; no drug use; has increased her walking and stretching exercises. In February 2023 underwent hemorrhoidectomy and lateral internal sphincterotomy for anal fissure at [facility] with Dr. Belcher. Past medical history is as below. Review of Systems Constitutional: Negative for chills, diaphoresis and fever. HENT: Negative for hearing loss. Eyes: Negative for visual disturbance. Respiratory: Negative for cough, choking, chest tightness, shortness of breath and wheezing. Cardiovascular: Negative for chest pain, palpitations and leg swelling. Gastrointestinal: Positive for constipation (managed with fiber supplements). Negative for abdominal pain, diarrhea, nausea and vomiting. Genitourinary: Negative for dysuria and hematuria. Musculoskeletal: Positive for arthralgias (chronic right knee pain; follows with Orthopedics). Neurological: Negative for dizziness, weakness, light-headedness, numbness and headaches. Psychiatric/Behavioral: Negative for agitation, self-injury and suicidal ideas. PAST MEDICAL HISTORY Diagnosis Date Elevated cholesterol Essential hypertension Prediabetes PAST SURGICAL HISTORY Procedure Laterality Date >=3 1989 2 C-Sections REPAIR ROTATOR CUFF,ACUTE 2020 Social History Tobacco Use Smoking status: Every Day Packs/day: 1 Types: Cigarettes Smokeless tobacco: Never Vaping Use Vaping Use: Never used Substance Use Topics Alcohol use: Not Currently Drug use: Not Currently FAMILY HISTORY Problem Relation Age of Onset Hypertension Mother Hypertension Sister Diabetes Sister Macular Degen Sister Detached Retina Sister Cataract Sister Cataract Maternal Grandmother Glaucoma No Family History There are no active hospital problems to display for this patient. PAIN EVALUATION 04/27/2023 0915 04/29/2023 1057 Pain Level: 8 5 Pain Location: Rectum Buttocks-Right Description: Aching;Pressure Throbbing;Stabbing Duration Units: Hours Months Frequency: Continuous Intermittent Intervention/Comfort measure: -- Reposition Current Outpatient Medications Medication Sig bumetanide (BUMEX) 1 mg tablet Take 1.5 tablets by mouth once daily. TRELEGY ELLIPTA 100-62.5-25 mcg inhalation powder Inhale 1 Puff as instructed once daily. hydrOXYzine HCl (ATARAX) 50 mg tablet Take 1 tablet by mouth four times a day as needed. albuterol HFA (PROVENTIL HFA, VENTOLIN HFA) 90 mcg/actuation inhaler Inhale 2 Puffs as instructed every 6 hours as needed. esomeprazole (NEXIUM) 40 mg capsule Take 1 capsule by mouth once daily. metoprolol succinate ER (TOPROL XL) 25 mg 24 hr tablet Take 1 tablet by mouth once daily. montelukast (SINGULAIR) 10 mg tablet Take 1 tablet by mouth daily at bedtime. rosuvastatin (CRESTOR) 10 mg tablet Take 1 tablet by mouth once daily. ferrous sulfate 325 mg (65 mg iron) tablet Take by mouth. bumetanide (BUMEX) 1 mg tablet Take 1 tablet by mouth once daily. No current facility-administered medications for this visit. I have confirmed and edited as necessary the chief complaint, medications, past medical, family (more content not included)... [facility] 03-24-2023 Miscellaneous Notes Make note to add new insurance effective 04/06/23 [facility] Dual Complete PPO DSNP RXBIN [id number] RXPCN [id number] RXGRP MPDCSP PCP Winnie Tracy [phone] Ree Campos March 24, 2023 12:17 PM documented in this encounter [facility] 03-06-2023 Miscellaneous Notes 1st Attempt LVM for patient to call and schedule 3 month f/u with Luzma Barillas. Peewee Osorio March 06, 2023 8:51 AM documented in this encounter [facility] 03-05-2023 Instructions Luzma Barillas APRN.CNP - 03/05/2023 4:40 PM EST Update A1c, order placed documented in this encounter [facility] 03-05-2023 Note HNO ID: [id number] Author: Luzma Barillas APRN.CNP Service: ? Author Type: Nurse Practitioner Type: Progress Notes Filed: 03/05/2023 4:41 PM Note Text: Endocrinology Virtual Visit This is a virtual visit using Audio Only Visit. It required patient-provider interaction for the medical decision making as documented below. I have communicated my name and active licensure. The patient's identity and physical location were verified at the time of this visit. Either the patient or their legal automotive sales representative has been informed of the risks and benefits of -- and alternatives to -- treatment through a remote evaluation and consents to proceed with the evaluation remotely. Aurelio Bhakta is a 63 year old year old female seen for diabetes management. Timeline: Diagnosed with type 2 diabetes 12/2021 Established care with endocrinology 05/2022 Complications: Nephropathy:none Neuropathy:none Diabetic retinopathy:none Current medications for diabetes: Ozempic 2mg from Dr Kerr (weight management) - states stopped taking ozempic 2 months. Taking JAILENE/ARB:yes Taking Statin:yes Previous medications for diabetes: glimepiride Today's visit: Patient presents via phone for diabetes followup. Last encounter with me 11/2022. Since last seen patient stopped seeing dr kerr d/t insurance. She also stopped taking ozempic about 2 months ago. Not currently checking blood sugars. Last A1c 11/26 was well controlled. ___ Typical day/occupation: retired Diet: Typically eats 2 meals a day, trying to avoid carbs and sugars Exercise/activity: none, plans to increase Hypertension and lipids managed by PCP Denies frequent periods of hypoglycemia. Patient verbalized understanding of the signs and symptoms of hypoglycemia and its treatment options. Important Diabetes Lab History: HBA1C: 12/2021 6.6% 03/2022 6.8%. 08/2022 6.2%. 11/2022 6.2% Thyroid Function Testin05/2021 TSH 1.44 Renal Function Testin05/2021 creatinine 0.85 GFR 73 Urine for Microalbumin: none on record Lipid Profile: 05/2021 TC 240 HDL 55 LDL 151 TG 200 Liver Profile: 05/2021 Alk Phos 67 AST 17 ALT 18 Important Diabetes Maintenance: Eye Exam: Patient educated to have ophthalmology visits at least once a year. 03/2022 went to [place] [facility]. Foot Exam: 05/2022 HISTORY REVIEWED (electronic chart updated): PAST MEDICAL HISTORY Diagnosis Date Elevated cholesterol Essential hypertension Prediabetes PAST SURGICAL HISTORY Procedure Laterality Date >=3 1989 2 C-Sections REPAIR ROTATOR CUFF,ACUTE 2020 FAMILY HISTORY Problem Relation Age of Onset Hypertension Mother Hypertension Sister Diabetes Sister Macular Degen Sister Detached Retina Sister Cataract Sister Cataract Maternal Grandmother Glaucoma No Family History Social History Tobacco Use Smoking status: Every Day Packs/day: 1 Types: Cigarettes Smokeless tobacco: Never Vaping Use Vaping Use: Never used Substance Use Topics Alcohol use: Not Currently Drug use: Not Currently Current Outpatient Medications Medication Sig bumetanide (BUMEX) 1 mg tablet Take 1.5 tablets by mouth once daily. bumetanide (BUMEX) 1 mg tablet Take 1 tablet by mouth once daily. TRELEGY ELLIPTA 100-62.5-25 mcg inhalation powder Inhale 1 Puff as instructed once daily. hydrOXYzine HCl (ATARAX) 50 mg tablet Take 1 tablet by mouth four times a day as needed. albuterol HFA (PROVENTIL HFA, VENTOLIN HFA) 90 mcg/actuation inhaler Inhale 2 Puffs as instructed every 6 hours as needed. semaglutide (OZEMPIC) 2 mg/dose (8 mg/3 mL) pen injector Inject 2 mg subcutaneously one time a week. esomeprazole (NEXIUM) 40 mg capsule Take 1 capsule by mouth once daily. metoprolol succinate ER (TOPROL XL) 25 mg 24 hr tablet Take 1 tablet by mouth once daily. montelukast (SINGULAIR) 10 mg tablet Take 1 tablet by mouth daily at bedtime. rosuvastatin (CRESTOR) 10 mg tablet Take 1 tablet by mouth once daily. valsartan (DIOVAN) 160 mg tablet Take 1 tablet by mouth once daily. ferrous sulfate 325 mg (65 mg iron) tablet Take by mouth. alcohol swabs Use with blood glucose test 2 times daily. Insulin Dep? No Lancets lancets Use with blood glucose test 2 times daily. Insulin Dep? No blood sugar diagnostic test strip Use with blood glucose test 2 times daily, Insulin Dep? No loperamide (IMODIUM) 2 mg cap(s) Take 1 capsule by mouth four times daily as needed for diarrhea for up to 15 days. hemorrhoid ointment (PREPARATION H) 0.25-14-74.9 % rectal ointment by RECTAL route twice daily as needed. ONETOUCH DELICA PLUS LANCET 30 gauge twice daily. glucose 4 gram chewable tablet Take 4 tablets by mouth as needed for low blood sugar. No current facility-administered medications for this visit. ALLERGIES Allergen Reactions Hydrocodone Vomiting Naproxen Anaphylaxis Sulfa (Sulfonamide * Other: See Comments, Rash Tramadol Hives, Rash Trazodone Hives, Rash REVIEW OF (more content not included)... [facility] 03-05-2023 History of Present illness Narrative Endocrinology Virtual Visit This is a virtual visit using Audio Only Visit. It required patient-provider interaction for the medical decision making as documented below. I have communicated my name and active licensure. The patient's identity and physical location were verified at the time of this visit. Either the patient or their legal automotive sales representative has been informed of the risks and benefits of -- and alternatives to -- treatment through a remote evaluation and consents to proceed with the evaluation remotely. Aurelio Bhakta is a 63 year old year old female seen for diabetes management. Timeline: Diagnosed with type 2 diabetes 12/2021 Established care with endocrinology 05/2022 Complications: Nephropathy:none Neuropathy:none Diabetic retinopathy:none Current medications for diabetes: Ozempic 2mg from Dr Kerr (weight management) - states stopped taking ozempic 2 months. Taking JAILENE/ARB:yes Taking Statin:yes Previous medications for diabetes: glimepiride Today's visit: Patient presents via phone for diabetes followup. Last encounter with [facility] 11/2022. Since last seen patient stopped seeing dr kerr d/t insurance. She also stopped taking ozempic about 2 months ago. Not currently checking blood sugars. Last A1c 11/26 was well controlled. ___ Typical day/occupation: retired Diet: Typically eats 2 meals a day, trying to avoid carbs and sugars Exercise/activity: none, plans to increase Hypertension and lipids managed by PCP Denies frequent periods of hypoglycemia. Patient verbalized understanding of the signs and symptoms of hypoglycemia and its treatment options. Important Diabetes Lab History: HBA1C: 12/2021 6.6% 03/2022 6.8%. 08/2022 6.2%. 11/2022 6.2% Thyroid Function Testin05/2021 TSH 1.44 Renal Function Testin05/2021 creatinine 0.85 GFR 73 Urine for Microalbumin: none on record Lipid Profile: 05/2021 TC 240 HDL 55 LDL 151 TG 200 Liver Profile: 05/2021 Alk Phos 67 AST 17 ALT 18 Important Diabetes Maintenance: Eye Exam: Patient educated to have ophthalmology visits at least once a year. 03/2022 went to [place] [facility]. Foot Exam: 05/2022 HISTORY REVIEWED (electronic chart updated): PAST MEDICAL HISTORY Diagnosis Date Elevated cholesterol Essential hypertension Prediabetes PAST SURGICAL HISTORY Procedure Laterality Date >=3 1989 2 C-Sections REPAIR ROTATOR CUFF,ACUTE 2020 FAMILY HISTORY Problem Relation Age of Onset Hypertension Mother Hypertension Sister Diabetes Sister Macular Degen Sister Detached Retina Sister Cataract Sister Cataract Maternal Grandmother Glaucoma No Family History Social History Tobacco Use Smoking status: Every Day Packs/day: 1 Types: Cigarettes Smokeless tobacco: Never Vaping Use Vaping Use: Never used Substance Use Topics Alcohol use: Not Currently Drug use: Not Currently Current Outpatient Medications Medication Sig bumetanide (BUMEX) 1 mg tablet Take 1.5 tablets by mouth once daily. bumetanide (BUMEX) 1 mg tablet Take 1 tablet by mouth once daily. TRELEGY ELLIPTA 100-62.5-25 mcg inhalation powder Inhale 1 Puff as instructed once daily. hydrOXYzine HCl (ATARAX) 50 mg tablet Take 1 tablet by mouth four times a day as needed. albuterol HFA (PROVENTIL HFA, VENTOLIN HFA) 90 mcg/actuation inhaler Inhale 2 Puffs as instructed every 6 hours as needed. semaglutide (OZEMPIC) 2 mg/dose (8 mg/3 mL) pen injector Inject 2 mg subcutaneously one time a week. esomeprazole (NEXIUM) 40 mg capsule Take 1 capsule by mouth once daily. metoprolol succinate ER (TOPROL XL) 25 mg 24 hr tablet Take 1 tablet by mouth once daily. montelukast (SINGULAIR) 10 mg tablet Take 1 tablet by mouth daily at bedtime. rosuvastatin (CRESTOR) 10 mg tablet Take 1 tablet by mouth once daily. valsartan (DIOVAN) 160 mg tablet Take 1 tablet by mouth once daily. ferrous sulfate 325 mg (65 mg iron) tablet Take by mouth. alcohol swabs Use with blood glucose test 2 times daily. Insulin Dep? No Lancets lancets Use with blood glucose test 2 times daily. Insulin Dep? No blood sugar diagnostic test strip Use with blood glucose test 2 times daily, Insulin Dep? No loperamide (IMODIUM) 2 mg cap(s) Take 1 capsule by mouth four times daily as needed for diarrhea for up to 15 days. hemorrhoid ointment (PREPARATION H) 0.25-14-74.9 % rectal ointment by RECTAL route twice daily as needed. ONETOUCH DELICA PLUS LANCET 30 gauge twice daily. glucose 4 gram chewable tablet Take 4 tablets by mouth as needed for low blood sugar. No current facility-administered medications for this visit. ALLERGIES Allergen Reactions Hydrocodone Vomiting Naproxen Anaphylaxis Sulfa (Sulfonamide * Other: See Comments, Rash Tramadol Hives, Rash Trazodone Hives, Rash REVIEW OF SYSTEM: Review of Systems Constitutional: Negative for fatigue. Respiratory: Negative for difficulty breathing. Cardiovascular: Negative for chest pain. Gastrointestinal: Negative for abdominal pain. Skin: Negative for skin color change. PHYSICAL EXAMINATION: VIDEO EXAM: (if completed, performed via video enabled technology) Physical Exam No exam performed ASSESSMENT & PLAN: Plan ASSESSMENT/PLAN: 1. Type 2 diabetes mellitus without complication, without long-term current use of insulin (HCC) - ICD9: 250.00, ICD10: E11.9 A1c order placed. Not on any current meds for diabetes. Will see how A1c is running with being off of ozempic and if >7% will discuss with patient about restarting meds - HGB A1C Plan of care: 1. HbA1C order placed. 2. Medication changes: See below. Not on any meds for diabetes currently 3. Total time in direct patient contact = 15 min. Greater than 50% of the time was spent in counseling and/or coordination of care. 4. Self-monitoring blood glucose log sheets were given to the patient. Patient instructed to fill them out and bring to the next visit. 5. Comprehensive diabetic education provided. Answered all questions. 6. Educated patient on therapeutic lifestyle changes. 7. Patient verbalized understanding of all the above instructions. Some elements may have been copied from previous notes but have been updated where appropriate and all reflect current medical decision making from today Follow up: Return in about 3 months (around 06/04/2023). Patient Instructions Update A1c, order placed I spent a total of 22 minutes on the date of the service which included preparing to see the patient, completing clinical documentation, obtaining and/or reviewing separately obtained history, counseling and educating the patient/family/caregiver, ordering medications, tests, or procedures, independently interpreting results (not separately reported), communicating results to the patient/family/caregiver, and care coordination (not separately reported) Luzma Barillas APRN.TERRENCE documented in this encounter [facility] 03-02-2023 Miscellaneous Notes Called the patient and she verified this is the number we have for her insurance already in the system. Marbella Dominguez March 02, 2023 11:26 AM documented in this encounter [facility] 02-24-2023 Hospital Discharge instructions Patient Education 02/24/2023 14:07:16 How to Take a Sitz Bath How to Take a Sitz Bath A sitz bath is a warm water bath that may be used to care for your rectum, genital area, or the area between your rectum and genitals (perineum). For a sitz bath, the water only comes up to your hips and covers your buttocks. A sitz bath may done at home in a bathtub or with a portable sitz bath that fits over the toilet. Your health care provider may recommend a sitz bath to help: Relieve pain and discomfort after delivering a baby. Relieve pain and itching from hemorrhoids or anal fissures. Relieve pain after certain surgeries. Relax muscles that are sore or tight. How to take a sitz bath Take 3 4 sitz baths a day, or as many as told by your health care provider. Bathtub sitz bath To take a sitz bath in a bathtub: 1.Partially fill a bathtub with warm water. The water should be deep enough to cover your hips and buttocks when you are sitting in the tub. 2.If your health care provider told you to put medicine in the water, follow his or her instructions. 3.Sit in the water. 4.Open the tub drain a little, and leave it open during your bath. 5.Turn on the warm water again, enough to replace the water that is draining out. Keep the water running throughout your bath. This helps keep the water at the right level and the right temperature. 6.Soak in the water for 15 20 minutes, or as long as told by your health care provider. 7.When you are done, be careful when you stand up. You may feel dizzy. 8.After the sitz bath, pat yourself dry. Do not rub your skin to dry it. Qztx-vvr-bzicom sitz bath To take a sitz bath with an avkw-lja-cujyro basin: 1.Follow the brake liner's instructions. 2.Fill the basin with warm water. 3.If your health care provider told you to put medicine in the water, follow his or her instructions. 4.Sit on the seat. Make sure the water covers your buttocks and perineum. 5.Soak in the water for 15 20 minutes, or as long as told by your health care provider. 6.After the sitz bath, pat yourself dry. Do not rub your skin to dry it. 7.Clean and dry the basin between uses. 8.Discard the basin if it cracks, or according to the brake liner's instructions. Contact a health care provider if: Your symptoms get worse. Do not continue with sitz baths if your symptoms get worse. You have new symptoms. If this happens, do not continue with sitz baths until you talk with your health care provider. Summary A sitz bath is a warm water bath in which the water only comes up to your hips and covers your buttocks. A sitz bath may help relieve itching, relieve pain, and relax muscles that are sore or tight in the lower part of your body, including your genital area. Take 3 4 sitz baths a day, or as many as told by your health care provider. Soak in the water for 15 20 minutes. Do not continue with sitz baths if your symptoms get worse. This information is not intended to replace advice given to you by your health care provider. Make sure you discuss any questions you have with your health care provider. Document Released: 12/13/2004 Document Revised: 08/22/2019 Document Reviewed: 03/25/2018 [employer] Patient Education 2020 [employer]. Follow Up Care 02/12/2023 15:20:48 With:PHILLY BELCHER JR, MD, Surgery Address: [address] [place] [address]- When:03/09/2023 09:45:00 Comments:FOLLOW UP [facility] 02-24-2023 Note Discharge Instructions Thank you for allowing [place] to assist you with your healthcare needs. The following is important discharge information regarding your hospital visit. Your Care Team MARVEL SAM DO Your Diagnosis Acute post-operative pain What to do next Scheduled Follow-Up Appointments Appointment Type When With Where Contact InformationGS OV Post Op 03/09/2023 09:45 AM EST PHILLY BELCHER JR, MD [facility] [place] Follow Up Appointments Follow Up with PHILLY BELCHER JR, MD, Surgery When 03/09/2023 09:45 AM EST Why: FOLLOW UP Where: [address] [place], [place] [id number]- The Following Activity and Diet Have Been Ordered for You Discharge Activity - Ordered -- Lifting Restricted less than 10 pounds, 02/24/23 14:03:00 EST Discharge Diet - Ordered -- No changes were made to your diet during your hospital stay. Please resume your pre hospitalization diet on discharge., 02/24/23 14:03:00 EST The Following Equipment Has Been Ordered for You Discharge Home Equipment Discharge Wound Care - Ordered -- Hot soaks/Sitz baths three times a day, after each bowel movement and as needed for pain. Take metamucil, one tablespoon 2 times daily, and mineral oil, one ounce twice daily for one week., 02/24/23 14:03:00 EST The Following Treatments Have Been Ordered for You Discharge Labs No qualifying data available. Discharge Radiology No qualifying data available. Other Therapies No qualifying data available. Post Acute Orders No qualifying data available. Someone Will Contact You Regarding These Home Health Referrals No home referrals have been ordered for you. No one will call you. Allergies [place] (nausea) naproxen (Nausea) traMADol (Nausea) traZODone (Nausea) Medications Please ask your primary doctor or pharmacist before taking any other medication not listed, including over the counter drugs, herbal medications, vitamins and or supplements as they may interact with your home medications. What How Much When Why Instructions Last Dose Unchanged acetaminophen-oxyCODONE (Percocet 5 mg-325 mg oral tablet) 1 tab(s) by mouth Every 4 hours as needed for for pain Acute post-operative pain Duration: 5 Days Pickup at [id number] Unchanged albuterol (Albuterol (Eqv-Proventil HFA) 90 mcg/ inh inhalation aerosol) 2 puff(s) by inhalation Every 6 hours as needed for as needed for wheezing Unchanged bumetanide (bumetanide 1 mg oral tablet) 1.5 tab(s) by mouth Once a day (in the morning) Unchanged esomeprazole (esomeprazole 40 mg oral delayed release capsule) 1 cap by mouth Once a day before a meal Unchanged fluticasone/ umeclidinium/ vilanterol (Trelegy Ellipta 100 mcg-62.5 mcg-25 mcg/ inh inhalation powder) 1 puff(s) by inhalation Once a day as needed for Shortness of breath or wheezing Unchanged hydrOXYzine (hydrOXYzine hydrochloride 50 mg oral tablet) 1 tab(s) by mouth Four (4) times a day as needed for as needed for anxiety Unchanged magnesium hydroxide (Taylor Milk of Magnesia 8% oral suspension) 30 Milliliter by mouth Once a day (in the morning) as needed for for constipation Unchanged metoprolol (Metoprolol Succinate ER 25 mg oral TABLET extended release) 1 tab(s) by mouth Once a day (in the morning) Unchanged Misc Medication (fiber advance gummy) 2 gummies by mouth Once a day Unchanged montelukast (montelukast 10 mg oral tablet) 1 tab(s) by mouth Daily at bedtime Unchanged multivitamin (Multivitamin) 2 tab(s) by mouth Every day Unchanged psyllium (Metamucil 3.4 g/ 5.2 g oral powder for reconstitution) 3.4 gram(s) by mouth Once a day Unchanged rosuvastatin (rosuvastatin 10 mg oral tablet) 1 tab(s) by mouth Daily at bedtime Unchanged valsartan (valsartan 160 mg oral tablet) 1 tab(s) by mouth Once a day (in the morning) Pharmacy Information [id number]: [id number], [place] [id number] [phone] Please take this list to your next doctor s visit. Bring all medications you take, including over the counter medications, herbals and other supplements with you to your doctor s visit. Patients and families are reminded to discard old lists and to update any records with all medication providers or retail pharmacies. Medication Leaflets acetaminophen and oxycodone (a SEET a MIN oh fen and OX i KOE done) Endocet 10/325, Endocet 2.5/325, Endocet 5/325, Endocet 7.5/325, Nalocet, Percocet, Prolate What is the most important information I should know about acetaminophen and oxycodone? MISUSE OF OPIOID MEDICINE CAN CAUSE ADDICTION, OVERDOSE, OR . Keep the medication in a place where others cannot get to it. Taking opioid medicine during may cause life-threatening withdrawal symptoms in the . Fatal side effects can occur if you use opioid medicine with alcohol, or with other drugs that cause drowsiness or slow your breathing. Stop taking this medicine and call your doctor right away if you have skin redness or a rash that spreads and causes blistering and peeling. What is acetaminophen and oxycodone? Acetaminophen and oxycodone is a combination medicine used to relieve moderate to severe pain. Acetaminophen and oxycodone contains an opioide medicine and may be habit-forming. Acetaminophen and oxycodone may also be used for purposes not listed in this medication guide. What should I discuss with my healthcare provider before taking acetaminophen and oxycodone? You should not use this medicine if you are allergic to acetaminophen or oxycodone, or if you have: severe asthma or breathing problems; or a blockage in your stomach or intestines. Tell your doctor if you have ever had: breathing problems, sleep apnea; liver disease; a drug or alcohol addiction; kidney disease; a head injury or seizures; urination problems; or problems with your thyroid, pancreas, or gallbladder. If you use opioid medicine while you are , your baby could become dependent on the drug. This can cause life-threatening withdrawal symptoms in the baby after it is born. Babies born dependent on opioids may need medical treatment for several weeks. Ask a doctor before using opioid medicine if you are . Tell your doctor if you notice severe drowsiness or slow breathing in the nursing baby. How should I take acetaminophen and oxycodone? Follow all directions on your prescription label. Never take this medicine in larger amounts, or for longer than prescribed. An overdose can damage your liver or cause . Tell your doctor if you feel an increased urge to use more of this medicine. Never share opioid medicine with another person, especially someone with a history of drug abuse or addiction. MISUSE CAN CAUSE ADDICTION, OVERDOSE, OR . Keep the medicine in a place where others cannot get to it. Selling or giving away opioid medicine is against the law. Measure liquid medicine carefully. Use the dosing syringe provided, or use a medicine dose-measuring device (not a kitchen spoon). If you need surgery or medical tests, tell the doctor ahead of time that you are using this medicine. You should not stop using this medicine suddenly. Follow your doctor's instructions about tapering your dose. Store at room temperature away from moisture and heat. Keep track of your medicine. You should be aware if anyone is using it improperly or without a prescription. Do not keep leftover opioid medication. Just one dose can cause in someone using this medicine accidentally or improperly. Ask your pharmacist where to locate a drug take-back disposal program. If there is no take-back program, flush the unused medicine down the toilet. What happens if I miss a dose? Since this medicine is used for pain, you are not likely to miss a dose. Skip any missed dose if it is almost time for your next dose. Do not use two doses at one time. What happens if I overdose? Seek emergency medical attention or call the Poison Help line at . An overdose of this medicine can be fatal, especially in a child or other person using the medicine without a prescription. Overdose symptoms may include nausea, vomiting, sweating, severe drowsiness, pinpoint pupils, slow breathing, or no breathing. Your doctor may recommend you get naloxone (a medicine to reverse an opioid overdose) and keep it with you at all times. A person caring for you can give the naloxone if you stop breathing or don't wake up. Your caregiver must still get emergency medical help and may need to perform CPR (cardiopulmonary resuscitation) on you while waiting for help to arrive. Anyone can buy naloxone from a pharmacy or local health department. Make sure any person caring for you knows where you keep naloxone and how to use it. What should I avoid while taking acetaminophen and oxycodone? Avoid driving or operating machinery until you know how this medicine will affect you. Dizziness or drowsiness can cause falls, accidents, or severe injuries. Do not drink alcohol. Dangerous side effects or could occur. Ask a doctor or pharmacist before using any other medicine that may contain acetaminophen (sometimes abbreviated as APAP). Taking certain medications together can lead to a fatal overdose. What are the possible side effects of acetaminophen and oxycodone? Get emergency medical help if you have signs of an allergic reaction: hives; difficulty breathing; swelling of your face, lips, tongue, or throat. Opioid medicine can slow or stop your breathing, and may occur. A person caring for you should give naloxone and/or seek emergency medical attention if you have slow breathing with long pauses, blue colored lips, or if you are hard to wake up. In rare cases, acetaminophen may cause a severe skin reaction that can be fatal. This could occur even if you have taken acetaminophen in the past and had no reaction. Stop taking this medicine and call your doctor right away if you have skin redness or a rash that spreads and causes blistering and peeling. Call your doctor at once if you have: noisy breathing, sighing, shallow breathing, breathing that stops; a light-headed feeling, like you might pass out; weakness, tiredness, fever, unusual bruising or bleeding; confusion, unusual thoughts or behavior; problems with urination; liver problems--nausea, upper stomach pain, tiredness, loss of appetite, dark urine, noel-colored stools, jaundice (yellowing of the skin or eyes); low cortisol levels-- nausea, vomiting, loss of appetite, dizziness, worsening tiredness or weakness; or high levels of serotonin in the body--agitation, hallucinations, fever, sweating, shivering, fast heart rate, muscle stiffness, twitching, loss of coordination, nausea, vomiting, diarrhea. Serious breathing problems may be more likely in older adults and in those who are debilitated or have wasting syndrome or chronic breathing disorders. Common side effects include: dizziness, drowsiness, feeling tired; feelings of extreme happiness or sadness; nausea, vomiting, stomach pain; constipation; or headache. This is not a complete list of side effects and others may occur. Call your doctor for medical advice about side effects. You may report side effects to FDA at 9-261-EAZ-5755. What other drugs will affect acetaminophen and oxycodone? You may have breathing problems or withdrawal symptoms if you start or stop taking certain other medicines. Tell your doctor if you also use an antibiotic, antifungal medication, heart or blood pressure medication, seizure medication, or medicine to treat HIV or hepatitis C. Opioid medication can interact with many other drugs and cause dangerous side effects or . Be sure your doctor knows if you also use: cold or allergy medicines, bronchodilator asthma/COPD medication, or a diuretic ('water pill'); medicines for motion sickness, irritable bowel syndrome, or overactive bladder; other opioids--opioid pain medicine or prescription cough medicine; a sedative like Valium--diazepam, alprazolam, lorazepam, Xanax, Klonopin, Versed, and others; drugs that make you sleepy or slow your breathing--a sleeping pill, muscle relaxer, medicine to treat mood disorders or mental illness; drugs that affect serotonin levels in your body--a stimulant, or medicine for depression, Parkinson's disease, migraine headaches, serious infections, or nausea and vomiting. This list is not complete. Other drugs may affect acetaminophen and oxycodone, including prescription and adun-csk-zjhfsha medicines, vitamins, and herbal products. Not all possible interactions are listed here. Where can I get more information? Your doctor or pharmacist can provide more information about acetaminophen and oxycodone. Remember, keep this and all other medicines out of the reach of children, never share your medicines with others, and use this medication only for the indication prescribed. Every effort has been made to ensure that the information provided by [employer]. [employer]') is accurate, up-to-date, and complete, but no guarantee is made to that effect. Drug information contained herein may be time sensitive. [employer] information has been compiled for use by healthcare practitioners and consumers in the [place] and therefore [employer] does not warrant that uses outside of the [place] are appropriate, unless specifically indicated otherwise. [employer] drug information does not endorse drugs, diagnose patients or recommend therapy. [employer] drug information is an informational resource designed to assist licensed healthcare practitioners in caring for their patients and/or to serve consumers viewing this service as a supplement to, and not a substitute for, the expertise, skill, knowledge and judgment of healthcare practitioners. The absence of a warning for a given drug or drug combination in no way should be construed to indicate that the drug or drug combination is safe, effective or appropriate for any given patient. [employer] does not assume any responsibility for any aspect of healthcare administered with the aid of information [employer] provides. The information contained herein is not intended to cover all possible uses, directions, precautions, warnings, drug interactions, allergic reactions, or adverse effects. If you have questions about the drugs you are taking, check with your doctor, nurse or pharmacist. Copyright [id number] [employer]. Version: 22.. Revision Date: 11/06/2022. Education Materials How to Take a Sitz Bath A sitz bath is a warm water bath that may be used to care for your rectum, genital area, or the area between your rectum and genitals (perineum). For a sitz bath, the water only comes up to your hips and covers your buttocks. A sitz bath may done at home in a bathtub or with a portable sitz bath that fits over the toilet. Your health care provider may recommend a sitz bath to help: Relieve pain and discomfort after delivering a baby. Relieve pain and itching from hemorrhoids or anal fissures. Relieve pain after certain surgeries. Relax muscles that are sore or tight. How to take a sitz bath Take 3 4 sitz baths a day, or as many as told by your health care provider. Bathtub sitz bath To take a sitz bath in a bathtub: 1. Partially fill a bathtub with warm water. The water should be deep enough to cover your hips and buttocks when you are sitting in the tub. 2. If your health care provider told you to put medicine in the water, follow his or her instructions. 3. Sit in the water. 4. Open the tub drain a little, and leave it open during your bath. 5. Turn on the warm water again, enough to replace the water that is draining out. Keep the water running throughout your bath. This helps keep the water at the right level and the right temperature. 6. Soak in the water for 15 20 minutes, or as long as told by your health care provider. 7. When you are done, be careful when you stand up. You may feel dizzy. 8. After the sitz bath, pat yourself dry. Do not rub your skin to dry it. Pcaf-nvj-breari sitz bath To take a sitz bath with an zuld-nzr-pmwzbr basin: 1. Follow the brake liner's instructions. 2. Fill the basin with warm water. 3. If your health care provider told you to put medicine in the water, follow his or her instructions. 4. Sit on the seat. Make sure the water covers your buttocks and perineum. 5. Soak in the water for 15 20 minutes, or as long as told by your health care provider. 6. After the sitz bath, pat yourself dry. Do not rub your skin to dry it. 7. Clean and dry the basin between uses. 8. Discard the basin if it cracks, or according to the brake liner's instructions. Contact a health care provider if: Your symptoms get worse. Do not continue with sitz baths if your symptoms get worse. You have new symptoms. If this happens, do not continue with sitz baths until you talk with your health care provider. Summary A sitz bath is a warm water bath in which the water only comes up to your hips and covers your buttocks. A sitz bath may help relieve itching, relieve pain, and relax muscles that are sore or tight in the lower part of your body, including your genital area. Take 3 4 sitz baths a day, or as many as told by your health care provider. Soak in the water for 15 20 minutes. Do not continue with sitz baths if your symptoms get worse. This information is not intended to replace advice given to you by your health care provider. Make sure you discuss any questions you have with your health care provider. Document Released: 12/13/2004 Document Revised: 08/22/2019 Document Reviewed: 03/25/2018 [employer] Patient Education 2020 [employer] Additional Information VACCINATE! IT SAVES LIVES! Members of the community who have not yet received the COVID-19 vaccine and would like to receive it can visit one of [facility] vaccine clinics. There are many vaccine clinic locations within the [facility]. For locations and available times, please visit [email or web address] It is important to note that some COVID mobile vaccine clinics are held outdoors and may be canceled in rainy or stormy conditions. To learn more about pediatric vaccinations (ages 5-11), we invite you to visit the [facility] webpage. [email or web address] -[email or web address] To learn more about the COVID-19 vaccine, we invite you to visit the CDC website for a list of frequently asked questions.https://www.cdc.gov/coronavi sammie/2019-ncov/vaccines/faq.html [facility] Patient Portal Access Instructions: Stay connected with your healthcare team and access your personal medical information anytime with the [facility] Patient Portal. Please follow the directions below to create your [employer] account: 1.Access the email account you provided upon registration to the hospital/physician office.2.Look for an invitation email from [facility].3.Open the email and access the invitation link: Accept Invitation to [facility].4.Fill in the required [email or web address] to create your account. To access your account, visit [email or web address]. Click the blue button labeled Access Patient Portal and then log in with the username and password that you created in the steps above. You will be able to view your test results, lab results, a summary of your visits, upcoming appointments and more. There is also a convenient messaging option where you can send secure messages to your provider. In addition, you will have the ability to download any documents or summaries to your computer and/or send the information securely to a physician. Remember that your healthcare information is confidential, so carefully consider who you will allow to register on the [place] [facility] Patient Portal for access to your information. You can also access the [place] [facility] Patient Portal on the [facility] angela. Simply click on Patient Portal and then log into your account. If you would like to receive a full copy of your medical records, please contact the [place] [facility] Medical Records Department by calling [phone], Thursday through Thursday between 8 a.m. and 4:30 p.m. HOW TO SAFELY DISPOSE OF PRESCRIPTION MEDICATIONS Please use one of the following methods to safely dispose of your unused medications. 1.Use a drug disposal kit: the drug disposal pouch allows you to safely discard your old and unused drugs. Ask your nurse to give you one when you are discharged.2.Visit a local take-back location: Many local pharmacies and police departments have programs that collect old and unwanted prescription drugs. Call your local pharmacy or go to http://[email or web address].[employer]/2C4Uc7k to find one close to you.3.Make use of household items: Use cat litter or old coffee grounds to dispose medications if other options are not available. Mix your drugs with these household products, seal them in an airtight container and throw it into the garbage. Call [facility]: [phone] to be sure your drugs can be disposed of in this way. Some medicines may require a different approach.4.Never flush your medications down the toilet. IF YOU HAVE BEEN PRESCRIBED AN OPIOID FOR PAIN If you have been prescribed an opioid (such as hydrocodone, oxycodone or morphine), it is critical to understand the possible side effects and risks of opioid pain medications. Even when taken as directed, opioids can have several side effects including: Tolerance, meaning you might need to take more of a medication for the same pain relief. Nausea, vomiting and/or constipation. Sleepiness, dizziness, dry mouth, confusion, depression or itching. Physical dependence, meaning you have withdrawal symptoms when a medication is stopped, can develop within a few days. KNOW YOUR RESPONSIBILITIES It is important to know exactly how much and how often to take the opioid pain medications you are prescribed. Never take opioids in higher amounts or more often than prescribed. Do not combine opioids with alcohol or other drugs that cause drowsiness, such as benzodiazepines, also known as benzos, including diazepam and alprazolam, muscle relaxants or sleep aids. Never sell or share prescription opioids. This is illegal. Store opioids in a secure place and out of reach of others (including children, family, friends and visitors). The last page of this document has been signed and retained as a CHART COPY. Signatures Patient Education Materials How to Take a Sitz Bath Medication Leaflets acetaminophen and oxycodone My discharge plan and instructions have been reviewed and explained to me and I,AURELIO BHAKTA understand my current condition and have read and understand these discharge instructions. I have received a written copy of the plan/instructions. If I have questions, I am aware that I should contact my doctor. 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 Having significant amount of perirectal pain postsurgery. Denies any nausea or vomiting. Denies any shortness breath or chest pain. Feeling anxious this morning. Objective Vitals and Measurements T: 36.8 C (Oral) TMIN: 36.2 C (Temporal Artery) TMAX: 37.1 C (Oral) HR: 81 RR: 18 BP: 154/85 SpO2: 94% HT: 162.6 cm WT: 82.7 kg Intake and Output 7AM Yesterday to 7AM Today Intake and Output (Last 24 hours) Intake Administration Information 1985.00 Oral Intake 960.00 Output Urine Voided 200.00 Stool Count 0.00 Urine Count 1.00 Total Summary Total Intake 2945.00 Total Output 200.00 Fluid Balance 2745.00 Physical Exam General -alert and oriented x4, answers questions appropriately. In no acute distress. HEENT -normocephalic. Cardiovascular -S1-S2, regular rate and rhythm. Respiratory -easy unlabored respirations. Chest rise symmetrical. Abdomen/GI -soft, nontender, bowel sounds present. Nondistended. Musculoskeletal -TURCIOS x4. Perirectal exam perianal incisions well approximated with sutures in place. Perianal ecchymosis noted. Minimal bleeding present. Psychiatric -calm and cooperative. Skin -normal for ethnicity. Weight Dosing Weight: 82.7 kg (02/23/23) Medications Medications (21) Active Scheduled: (11) albuterol - ipratropium 2.5 mg-0.5 mg/3 mL Inhal Juanita UD 3 mL, Inhalation, QIDRT budesonide 0.25 mg/2 mL Susp UD 0.25 mg 2 mL, Inhalation, BIDRT bumetanide 0.5 mg tablet 1.5 mg 3 tab(s), Oral, qAM losartan 100 mg tablet 100 mg 1 tab(s), Oral, qDay metoprolol succinate 25 mg ER tablet 25 mg 1 tab(s), Oral, qAM montelukast 10 mg Tablet 10 mg 1 tab(s), Oral, qHS multivitamin tablet 2 tab(s), Oral, Daily pantoprazole 40 mg EC tablet 40 mg 1 tab(s), Oral, qDayAC polyethylene glycol 3350 - UD packet 17 gram(s) 15 mL, Oral, BID psyllium REC Packet 0.5 packet(s), Oral, BID rosuvastatin 10 mg tablet 10 mg 1 tab(s), Oral, qHS Continuous: (0) PRN: (10) acetaminophen 325 mg Tablet 650 mg 2 tab(s), Oral, q4h acetaminophen-OXYcodone 325 mg-5 mg Tablet 1 tab(s), Oral, q4h acetaminophen-OXYcodone 325 mg-5 mg Tablet 2 tab(s), Oral, q4h albuterol 0.083% Soln UD (2.5mg/3 mL) 2.5 mg 3 mL, Inhalation, q6hRT dextrose 50% Solution Disp syringe 50 mL 12.5 gram(s) 25 mL, IV Push, AsDirected HYDROmorphone 0.5 mg/0.5 mL PF syringe 0.5 mg 0.5 mL, IV Push, q2h hydromorphone 1 mg/mL (1mL) INJ 1 mg 1 mL, IV Push, q2h hydroxyzine hcl 25 mg tablet 50 mg 2 tab(s), Oral, QID ondansetron 2 mg/ 1 mL 2 mL INJ 4 mg 2 mL, IV Push, q4h ondansetron 4 mg DIS tablet 4 mg 1 tab(s), Oral, q6h Lab Results No 36 Hour Lab Data EKG No qualifying data available. Assessment/Plan Acute post-operative pain 62-year-old female who is postoperative day 1 status post sphincterotomy with hemorrhoidectomy. She was admitted overnight due to postoperative hypoxia and pain. This morning patient continues to have a significant amount of perirectal pain. She remains hypoxic saturating 88% on room air. Is a current smoker. Denies any shortness of breath or chest pain. Plan: -Wean supplemental oxygen as tolerable. -If patient is able to be weaned from oxygen and saturation remains above 90% on room air we will discharge home later today. -She was encouraged to use her incentive spirometer. -Continue albuterol breathing treatments as ordered. -Sitz bath's and pain control as ordered. Case discussed with Dr. Belcher, see his addendum to follow. Digitally Signed by DHARMESH LU on 02/24/2023 10:56 AM [facility] 02-24-2023 Surgery Hospital Progress note Date of Service 02/24/2023 Chief Complaint Postoperative pain Subjective Patient up ambulating in room this morning. Having significant amount of perirectal pain postsurgery. Denies any nausea or vomiting. Denies any shortness breath or chest pain. Feeling anxious this morning. Objective Vitals and Measurements T: 36.8 C (Oral) TMIN: 36.2 C (Temporal Artery) TMAX: 37.1 C (Oral) HR: 81 RR: 18 BP: 154/85 SpO2: 94% HT: 162.6 cm WT: 82.7 kg Intake and Output 7AM Yesterday to 7AM Today Intake and Output (Last 24 hours) Intake Administration Information 1985.00 Oral Intake 960.00 Output Urine Voided 200.00 Stool Count 0.00 Urine Count 1.00 Total Summary Total Intake 2945.00 Total Output 200.00 Fluid Balance 2745.00 Physical Exam General -alert and oriented x4, answers questions appropriately. In no acute distress. HEENT -normocephalic. Cardiovascular -S1-S2, regular rate and rhythm. Respiratory -easy unlabored respirations. Chest rise symmetrical. Abdomen/GI -soft, nontender, bowel sounds present. Nondistended. Musculoskeletal -TURCIOS x4. Perirectal exam perianal incisions well approximated with sutures in place. Perianal ecchymosis noted. Minimal bleeding present. Psychiatric -calm and cooperative. Skin -normal for ethnicity. Weight Dosing Weight: 82.7 kg (02/23/23) Medications Medications (21) Active Scheduled: (11) albuterol - ipratropium 2.5 mg-0.5 mg/3 mL Inhal Juanita UD 3 mL, Inhalation, QIDRT budesonide 0.25 mg/2 mL Susp UD 0.25 mg 2 mL, Inhalation, BIDRT bumetanide 0.5 mg tablet 1.5 mg 3 tab(s), Oral, qAM losartan 100 mg tablet 100 mg 1 tab(s), Oral, qDay metoprolol succinate 25 mg ER tablet 25 mg 1 tab(s), Oral, qAM montelukast 10 mg Tablet 10 mg 1 tab(s), Oral, qHS multivitamin tablet 2 tab(s), Oral, Daily pantoprazole 40 mg EC tablet 40 mg 1 tab(s), Oral, qDayAC polyethylene glycol 3350 - UD packet 17 gram(s) 15 mL, Oral, BID psyllium REC Packet 0.5 packet(s), Oral, BID rosuvastatin 10 mg tablet 10 mg 1 tab(s), Oral, qHS Continuous: (0) PRN: (10) acetaminophen 325 mg Tablet 650 mg 2 tab(s), Oral, q4h acetaminophen-OXYcodone 325 mg-5 mg Tablet 1 tab(s), Oral, q4h acetaminophen-OXYcodone 325 mg-5 mg Tablet 2 tab(s), Oral, q4h albuterol 0.083% Soln UD (2.5mg/3 mL) 2.5 mg 3 mL, Inhalation, q6hRT dextrose 50% Solution Disp syringe 50 mL 12.5 gram(s) 25 mL, IV Push, AsDirected HYDROmorphone 0.5 mg/0.5 mL PF syringe 0.5 mg 0.5 mL, IV Push, q2h hydromorphone 1 mg/mL (1mL) INJ 1 mg 1 mL, IV Push, q2h hydroxyzine hcl 25 mg tablet 50 mg 2 tab(s), Oral, QID ondansetron 2 mg/ 1 mL 2 mL INJ 4 mg 2 mL, IV Push, q4h ondansetron 4 mg DIS tablet 4 mg 1 tab(s), Oral, q6h Lab Results No 36 Hour Lab Data EKG No qualifying data available. Assessment/Plan Acute post-operative pain 62-year-old female who is postoperative day 1 status post sphincterotomy with hemorrhoidectomy. She was admitted overnight due to postoperative hypoxia and pain. This morning patient continues to have a significant amount of perirectal pain. She remains hypoxic saturating 88% on room air. Is a current smoker. Denies any shortness of breath or chest pain. Plan: -Wean supplemental oxygen as tolerable. -If patient is able to be weaned from oxygen and saturation remains above 90% on room air we will discharge home later today. -She was encouraged to use her incentive spirometer. -Continue albuterol breathing treatments as ordered. -Sitz bath's and pain control as ordered. Case discussed with Dr. Belcher, see his addendum to follow. Digitally Signed by DHARMESH LU on 02/24/2023 10:56 AM [facility] 02-23-2023 Nurse Progress note supplies ordered x2 for a sitz bath. supplies still unavailable to floor. Digitally Signed by JACKIE Mirza on 02/23/2023 09:47 PM [facility] 02-23-2023 Anesthesiology Consult note Patient: AURELIO BHAKTA Age: 62 years Sex: Female : 1960 Associated Diagnoses: None Author: BOSSMAN NEWELL DO Postoperative Information Post Operative Info: Post op day: Post Anesthesia Care Unit. Patient location: PACU. Assessment Postanesthesia assessment Vitals. Mental status: at preoperative baseline. Respiratory function: respirations are non-labored, Stable. Respiratory support: none. CV function: Stable. Cardiovascular support: none. Pain: Satisfactory. Nausea status: Satisfactory. Postoperative hydration status: within normal limits. Notes: Patient is sufficiently recovered from anesthesia to participate in the evaluation. No follow-up care needed. No complications post-anesthesia.. Given pts currently respiratory status recommend that patient be admitted overnight for continued care, Surgeon agrees, pt however disagrees and wishes to go home it was explained to her that it is for her safety, pt understands however still states that she will leave on her own against medical advice great time was spent trying to convince her to stay Digitally Signed by BOSSMAN NEWELL DO on 02/23/2023 07:40 PM [facility] 02-23-2023 Anesthesiology Consult note Patient: AURELIO BHAKTA Age: 62 years Sex: Female : 1960 Associated Diagnoses: None Author: LOKESH RIDDLE MD Preoperative Information Time of last food or liquid consumption: 02/23/2023 00:00:00 Anesthesia history Patient's history: negative. Family's history: negative. Health Status Allergies: Allergic Reactions (Selected) Severity Not Documented Naproxen- Nausea. TraMADol- Nausea. TraZODone- Nausea., Allergies (3) ActiveReaction naproxenNausea traMADolNausea traZODoneNausea Current medications: (Selected) Inpatient Medications Ordered LR 1,000 mL: 20 mL/hr, Intravenous Documented Medications Documented Albuterol (Eqv-Proventil HFA) 90 mcg/inh inhalation aerosol: 2 puff(s), Inhalation, q6hr, PRN: as needed for wheezing, 0 Refill(s) Metamucil 3.4 g/5.2 g oral powder for reconstitution: 3.4 gram(s), Oral, qDay, 283 gram(s), 0 Refill(s) Metoprolol Succinate ER 25 mg oral TABLET extended release: 25 mg, 1 tab(s), Oral, qAM, 0 Refill(s) Multivitamin: 2 tab(s), Oral, Daily, 0 Refill(s) Taylor Milk of Magnesia 8% oral suspension: 2.4 gram(s), 30 mL, Oral, qAM, PRN: for constipation, 300 mL, 0 Refill(s) Trelegy Ellipta 100 mcg-62.5 mcg-25 mcg/inh inhalation powder: 1 puff(s), Inhalation, qDay, PRN: Shortness of breath or wheezing, 0 Refill(s) bumetanide 1 mg oral tablet: 1.5 mg, 1.5 tab(s), Oral, qAM, 0 Refill(s) esomeprazole 40 mg oral delayed release capsule: 40 mg, 1 cap(s), Oral, qDayAC, 0 Refill(s) fiber advance gummy: 2 gummies, Oral, qDay, 0 Refill(s) hydrOXYzine hydrochloride 50 mg oral tablet: 50 mg, 1 tab(s), Oral, QID, PRN: as needed for anxiety, 0 Refill(s) montelukast 10 mg oral tablet: 10 mg, 1 tab(s), Oral, qHS, 30 tab(s), 0 Refill(s) rosuvastatin 10 mg oral tablet: 10 mg, 1 tab(s), Oral, qHS, 30 tab(s), 0 Refill(s) valsartan 160 mg oral tablet: 160 mg, 1 tab(s), Oral, qAM, 30 tab(s), 0 Refill(s), Medications (1) Active Scheduled: (0) Continuous: (1) Lactated Ringers 1,000 mL 1,000 mL, Intravenous, 20 mL/hr PRN: (0) Problem list: Medical Anxiety / SNOMED CT 58408176 / Confirmed Claustrophobia / SNOMED CT 00006784 / Confirmed High cholesterol / SNOMED CT 63884245 / Confirmed Hypertension / SNOMED CT 0109850873 / Confirmed, Active Problems (21) Acid reflux Anal fissure Anxiety Arthritis Asthma Claustrophobia Constipation Depression Diabetes mellitus type 2 Frozen shoulder Gastroparesis Glasses High cholesterol Hypertension Insomnia Panic attack Scab Seasonal allergy Smoker Tobacco use Wears dentures Histories Past Medical History: No active or resolved past medical history items have been selected or recorded. Family History: Emphysema Sister Aneurysm Father Diabetes mellitus Sister Heart disease Mother Stroke Father Hyperchloremia Sister Mother Mental illness Sister Cancer Sister HTN - Hypertension Sister Mother Brother Aneurysm Father Comments: 02/10/2023 15:14 EST - Irving, Vira RMA brain Procedure history: delivery ([id number]). delivery ([id number]). Colonoscopy (606460514). Complete repair of rotator cuff (475267719). Comments: 02/16/2023 8:49 EST - JACKIE Santillan right EGD - esophagogastroduodenoscopy ([id number]). Tooth extraction, multiple (26862821). Social History Social & Psychosocial Habits Alcohol 02/23/2023 Use: Never Substance Abuse 02/23/2023 Use: Never Tobacco 02/23/2023 Tobacco Use: 10 or more cigarettes (1/ Type: Cigarettes Started at age: 13 Years Home/Environment 02/23/2023 Domestic Concerns None Living situation: Home/Independent Current Home Treatments None Special Services and Community Resources None Marital Status of Patient if Patient Independent Adult: Unmarried . Physical Examination Vital Signs 02/23/2023 12:50 EST Temperature Temporal Artery 36.4 DegC Apical Heart Rate 71 bpm Respiratory Rate 18 br/min Systolic Blood Pressure Non-Invasive 108 mmHg (Modified) Diastolic Blood Pressure Non-Invasive 63 mmHg (Modified) Vital Signs(last 24 hrs) Last Charted Resp Rate 18 br/min (FEB 23 12:50) DFL718 mmHg (FEB 23 12:50) DBP63 mmHg (FEB 23 12:50) Measurements from flowsheet : Measurements 02/23/2023 13:06 EST Height 162.6 cm Height in inches 64 inch(es) Admission Weight 82.7 kg Weight Lbs 181.9 lb Weight Method Actual [place] Body Weight 54.74 kg Type of Scale Used Bed scale Admission Body Mass Index 31.28 m2 Pain assessment: Pain Assessment 02/23/2023 12:50 EST Primary Pain Location Buttock Primary Pain Intensity 7 Primary Pain Nonverbal Response Appears restful Pain Scale Type 0-10 Pain scale . General: Alert and oriented, No acute distress. Airway: Mallampati classification: II (soft palate, fauces, uvula visible). Respiratory: Lungs are clear to auscultation. Cardiovascular: Normal rate. Heart Sounds: Normal. Review / Management Results review: No qualifying data available , Lab results 02/23/2023 14:27 EST SN - SP - Prep Agents Betadine Solution SN - SP - HR - Method N/A 02/23/2023 14:26 EST SN - PTCare - Anti-thromboembolism Danii Sequential Compression Device (SCD) 02/23/2023 14:25 EST SN - Assess - LOC Alert, Awake SN - Assess - Orientation Oriented X 3 SN - Assess - Post-op Skin Integrity Intact/Dry 02/23/2023 14:25 EST SN - GCD - Post-operative Diagnosis Anal fissure SN - GCD - Case Level Level 2 02/23/2023 14:23 EST SN - CAt - Case Attendee SN - CAt - Case Attendee SN - CAt - Case Attendee SN - CAt - Case Attendee SN - CAt - Case Attendee SN - CAt - Case Attendee SN - CAt - Case Attendee SN - CAt - Case Attendee SN - CAt - Case Attendee SN - CAt - Case Attendee SN - CAt - Case Attendee SN - CAt - Case Attendee SN - CAt - Case Attendee SN - CAt - Case Attendee SN - CAt - Role Performed Primary Surgeon SN - CAt - Role Performed Anesthesiologist SN - CAt - Role Performed INTELLIGENCE CLERK SN - CAt - Role Performed INTELLIGENCE CLERK Student SN - CAt - Role Performed Light Rail Signal Technician 1 SN - CAt - Role Performed Scrub 1 SN - CAt - Role Performed Network Designer 1 02/23/2023 13:17 EST SN - Preop - CTm Pt Ready for OR/Proced 02/23/2023 13:17 02/23/2023 13:16 EST lidocaine Not Done: Not Appropriate at this Time (Not Done) Lactated Ringers Injection Begin Bag 1,000 mL mL 02/23/2023 13:15 EST Hand Left 02/23/2023 22 gauge Peripheral IV Activity: Insert new site Peripheral IV Dressing Condition: Clean, Dry, Intact Peripheral IV Dressing Activity: Applied, Transparent dressing Peripheral IV Site Condition: No complications Peripheral IV Equipment: Manual Peripheral IV Number of Attempts: 1 02/23/2023 13:06 EST Height 162.6 cm Height in inches 64 inch(es) Admission Weight 82.7 kg Weight Lbs 181.9 lb Weight Method Actual [place] Body Weight 54.74 kg Type of Scale Used Bed scale Admission Body Mass Index 31.28 m2 Heart Rhythm Regular Respirations Unlabored Respiratory Pattern Regular Breath Sounds Auscultated Anterior only All Lobes Breath Sounds Clear Cough None Abdomen Description Non-distended, Soft Abdomen Palpation Soft Bowel Movement Last Date 02/22/2023 Swallowing Disorder None Bowel Sounds All Quadrants Present Skin Temperature Warm Skin Description [place] Skin Integrity Intact Neurological Symptoms Patient denies Extremity Movement Equal Characteristics of Speech Clear Level of Consciousness Alert Strength All Extremities Strong Tone All Extremities Normal Sensation All Extremities Intact Affect/Behavior Appropriate, Calm, Cooperative Orientation Oriented x 4 Orientation Assessment Oriented x 4 Assistive Device None Activity Status ADL Awake, Resting Standard Safety ID band on, Allergy Band on, Call device within reach, Bed in low position, Wheels locked, Visitor at bedside, Safety level maintained Demonstrates Correct Call Light Use Yes 02/23/2023 13:04 EST Urinary Elimination Voiding, no difficulties Violence Risk Confused No Violence Risk Irritable No Violence Risk Boisterous No Violence Risk Verbal Threats No Violence Risk Physical Threats No Violence Risk Attacking Objects No Violence Risk Predictor Score 0 Violence Risk Intervention None Violence Risk Current Interventions None Allergies Yes Colon Prep Results N/A Consent Form Signed Yes Patient Dressed In Hospital gown Pre-op Preparation Dentures, full removed, Glasses removed CHG Preoperative Wash/Wipe Not done Non-CHG Preoperative Shampoo Not applicable Preop Nasal Swab Povidone-Iodine CHG Skin Prep No History & Physical Update On Chart Yes History & Physical On Chart Yes Bowel Prep Completed No Pre-op Carbohydrate Drink No Obstructive Sleep Apnea Assess Completed Yes MRSA/MSSA Protocol No Belongings At Bedside Bra, Cell phone, Dentures, lower, Dentures, upper, Glasses, Pants, Purse, Shirt, Shoes, Socks, Undergarments, Wallet NPO Status Maintained Allergy Band on and Verified Yes Patient ID Band on and Verified Yes Implants Verified Yes Pacemaker/AICD Verified No Site Verified by Patient/Family Yes Anesthesia Consent Signed No Blood Consent Signed No Last Fluid Intake 02/23/2023 14:00 Last Food Intake 02/23/2023 14:00 Last Void 02/23/2023 11:00 02/23/2023 13:03 EST Individuals Taught Patient, Family member Learning Readiness Willing to learn Barriers to Learning Vision impairment Teaching Method Explanation Preferred Spoken Language Surinamese Preferred Written Language Surinamese Family/Caregiver Prefer Spoken Language Sur[place]amese Family/Caregiver Prefer Written Language Sur[place]amese Pre Procedure/Surgery Education Appropriate expectations, Bring glasses, hearing aids, contact lens case, Date/Time of procedure/surgery, Hospital gown requirement worn to OR, Leave valuables, jewelry, wedding ring at home, Meds to take or hold, NPO Safety Teaching Evaluation Verbalizes/Nonverbally indicates understanding 02/23/2023 13:00 EST Designated Person #1 We May Share JAY Boyce [phone] Designated Person #1 Relationship Other: yaakov Privacy Restrictions Requested None Status No, per patient Sensory Deficits None Sleep Apnea Snore No Sleep Apnea Tired No Sleep Apnea Obstruction No Sleep Apnea Pressure Yes Sleep Apnea BMI No Sleep Apnea Age Yes Sleep Apnea Neck Yes Sleep Apnea Gender No Sleep Apnea Score 3 Diagnosed With Sleep Apnea No Advanced Directives No - refuses information Infectious Disease Symptoms Patient states no symptoms Infectious Disease Recent Exposure No Alcohol and Drug Use No Employee of Institutional Living No Health Care Employee No History of Exposure to TB No History of Positive Chest X-Ray for TB No History of Positive TB Skin Test No Homeless No Known Immunosuppression No Recent Immigrant No Resident of Institutional Living No Bloody Sputum No Fatigue No Fever No Loss of Appetite No Night Sweats No Persistent Cough > 3 Weeks No Weight Loss No Surgery Scheduled On Date/Time 02/23/2023 14:50 Patient Aware Date/Time Of Surgery Yes Arrival Time the Day of Surgery 02/23/2023 12:50 Patient Aware of Arrival Time Yes Pre-Op Patient Education NPO after midnight, No smoking after midnight, No makeup, No jewelry, Responsible Libertarian, Aware of surgery location, Pre-op education done, Instructed to take ordered medications, Instructed to bring home medications SN - Preprocedure Comments Spoke with patient, Verbalizes/Nonverbally indicates understanding Barriers to Learning Vision impairment Teaching Method Explanation, Printed materials Preferred Spoken Language Sur[place]amese Preferred Written Language Surinamese Teaching Evaluation Verbalizes/Nonverbally indicates understanding Safety Brochure Information Reviewed Yes Kel Brush Video Viewed No Information Given by Patient Patient's Current Physicians Patient's Current Physicians Discharge To, Anticipated Home independently Prev Test Positive/Diagnosis w/COVID-19 No Current Quarantine/Isolated any Illness No Any Contact with Sick Animals/Birds No Traveled Anywhere in Last 30 Days No Lost Weight Unintentionally Recently No Eat Poorly Due to Decreased Appetite No Total MST Score 0 No Personal Devices, Patient Valuables Dentures, lower, Dentures, upper, Glasses Anesthesia/Transfusions Prior anesthesia Admission Note-Nursing Same Day Patient History 02/23/2023 12:57 EST SN - Preop - CTm Pt in SDS Room 02/23/2023 12:57 02/23/2023 12:50 EST Blood Glucose, Capillary 116 mg/dL HI Blood Glucose Testing Reason Routine Temperature Temporal Artery 36.4 DegC Apical Heart Rate 71 bpm Respiratory Rate 18 br/min Systolic Blood Pressure Non-Invasive 108 mmHg (Modified) Diastolic Blood Pressure Non-Invasive 63 mmHg (Modified) Primary Pain Location Buttock Primary Pain Intensity 7 Primary Pain Nonverbal Response Appears restful Pain Scale Type 0-10 Pain scale Oxygen Therapy Room air Oxygen Saturation 96 % . Assessment and Plan [place] [employer]hesi[employer] (ASA) physical status classification: Class III. Anesthetic Preoperative Plan Anesthetic technique: General. Maintenance airway: Laryngeal mask airway. Risks discussed: nausea, vomiting, headache, sore throat, dental injury, hypotension, allergic reaction, serious complications. Informed consent: signed by patient. Notes: Patient was seen and examined by laLokesh MD. The medical record was reviewed. Consultations, lab results , radiographic results and cardiovascular studies examined and noted. Anesthesia was explained in detail and questions were invited and answered. We will proceed as outlined in the plan above.. Digitally Signed by LOKESH RIDDLE MD on 02/23/2023 02:31 PM [facility] 02-23-2023 Miscellaneous Notes Last Office Visit Date: 12/16/2022 Last [facility] Visit: Visit date not found Has the patient had an appointment at [facility] in the past year, or do they have an upcoming appointment scheduled at [facility]? YES- Continue with refill request. Future Appointment: Visit date not found Pharmacy faxed requesting the following refill Refill(s) Requested: Requested Prescriptions Pending Prescriptions Disp Refills bumetanide (BUMEX) 1 mg tablet 45 tablet 0 Sig: Take 1.5 tablets by mouth once daily. ALLERGIES Allergen Reactions Hydrocodone Vomiting Naproxen Anaphylaxis Sulfa (Sulfonamide * Other: See Comments, Rash Tramadol Hives, Rash Trazodone Hives, Rash (home) [phone] (cell) The patients preferred pharmacy has been captured for this encounter? yes Request is for script(s) to be escript to pharmacy. Dougie Fernandez, RN documented in this encounter [facility] 02-03-2023 Miscellaneous Notes VM received from Eloisa with Gen Surg Dr.Nicholas Belcher's office requesting patient records from her colonoscopy and EGD from 09/05/2021. Records faxed to [phone]. Jagdeep Orozco, Maintenance Engineer [employer] February 03, 2023 4:01 PM documented in this encounter [facility] 01-29-2023 Miscellaneous Notes Last Office Visit Date: 12/16/2022 Last [facility] Visit: Visit date not found Has the patient had an appointment at [facility] in the past year, or do they have an upcoming appointment scheduled at [facility]? YES- Continue with refill request. Future Appointment: 02/24/2023 Pharmacy faxed requesting the following refill Refill(s) Requested: Requested Prescriptions Pending Prescriptions Disp Refills TRELEGY ELLIPTA 100-62.5-25 mcg inhalation powder 60 Each 1 Sig: Inhale 1 Puff as instructed once daily. hydrOXYzine HCl (ATARAX) 50 mg tablet 120 tablet 1 Sig: Take 1 tablet by mouth four times a day as needed. albuterol HFA (PROVENTIL HFA, VENTOLIN HFA) 90 mcg/actuation inhaler 1 Each 1 Sig: Inhale 2 Puffs as instructed every 6 hours as needed. ALLERGIES Allergen Reactions Hydrocodone Vomiting Naproxen Anaphylaxis Sulfa (Sulfonamide * Other: See Comments, Rash Tramadol Hives, Rash Trazodone Hives, Rash (home) [phone] (cell) The patients preferred pharmacy has been captured for this encounter? yes Request is for script(s) to be escript to pharmacy. Dougie Fernandez RN documented in this encounter [facility] 01-22-2023 Miscellaneous Notes Spoke with patient, she is aware of results. Marilyn Duran, Maintenance Engineer [employer] January 22, 2023 11:01 AM Please inform the patient of the following lab results: We had her get a repeat BMP to check her kidney function [in the setting of the diuretics she is currently on] and her potassium level [which was previously low, and we had her complete a short course of potassium supplementation]. Her potassium level on her metabolic panel looks much better this time! And her kidney function is within normal limits as well. Therefore, no need for any further courses of the potassium pills - and no need to change any of her other medications. Thanks so much, Marvel Sam DO documented in this encounter [facility] 01-19-2023 Miscellaneous Notes Last Office Visit Date: 12/16/2022 Last [facility] Visit: Visit date not found Has the patient had an appointment at [facility] in the past year, or do they have an upcoming appointment scheduled at [facility]? YES- Continue with refill request. Future Appointment: 02/24/2023 Pharmacy faxed requesting the following refill Refill(s) Requested: Requested Prescriptions Pending Prescriptions Disp Refills bumetanide (BUMEX) 1 mg tablet 45 tablet 0 Sig: Take 1.5 tablets by mouth once daily. ALLERGIES Allergen Reactions Hydrocodone Vomiting Naproxen Anaphylaxis Sulfa (Sulfonamide * Other: See Comments, Rash Tramadol Hives, Rash Trazodone Hives, Rash (home) [phone] (cell) The patients preferred pharmacy has been captured for this encounter? yes Request is for script(s) to be escript to mail order [facility]. Dougie Fernandez RN documented in this encounter [facility] 01-15-2023 Miscellaneous Notes Contact prescriber Luzma Barillas APRN, CNP Patient called requesting the following refill. Requested Prescriptions Pending Prescriptions Disp Refills semaglutide (OZEMPIC) 2 mg/dose (8 mg/3 mL) pen injector 3 mL 0 Sig: Inject 2 mg subcutaneously one time a week. Patient last appointment: 05/23/2022 Next Appointment: 03/05/2023 Patient Phone numbers: [phone] (home) Request is for script(s) to be escript to pharmacy. Patience Villavicencio LPN documented in this encounter [facility] 01-15-2023 Miscellaneous Notes Faxed referral. Marilyn Duran, Maintenance Engineer [employer] January 15, 2023 9:[address] Patel placed! Thanks so much, Marvel Sam DO Patient called, requests that referral to GI is faxed to Dr. Silvino Patel. She states she would like to see him to manage recent GI issues and hemorrhoids. Please place referral and clerical will fax. P: [phone] F: [phone] Marilyn Duran, Maintenance Engineer [employer] January 14, 2023 10:12 AM documented in this encounter [facility] 12-26-2022 Miscellaneous Notes Please inform the patient of the following lab results: - Overall, her cholesterol is looking much better since she has been losing weight! The only type of cholesterol which as worsened is her triglycerides [which are basically fats that the body converts into energy storage, but hers are too high and can lead to heart disease if uncontrolled]. As she continues to exercise, eat better, and lose weight - this number should go down. On our next recheck, if the triglycerides get even higher, we may need to consider another medication. - Her kidney and liver function look great, but her potassium is slightly low. As she is on a couple of medications that can cause her potassium to drop [including Bumex], I will send in for a short course of potassium supplementation. We will then recheck her potassium and magnesium levels when I see her again soon. - Her blood cell counts were overall fine. Her white blood cells were just slightly high, but this could just mean she had a bit of an inflammatory or infectious reaction at the time her blood was drawn [maybe she was battling a small virus, etc.] Nothing of significant concern! Thank you so much, Marvel Sam DO documented in this encounter [facility] 12-24-2022 Miscellaneous Notes Please route telephone encounter to the Clerical Pool ([facility] Clerical Pool) Patient reached out to the office due to needing a referral for OON authorization for seeing Dr. Kerr. Attempted to submit referral through [employer]. Was notified to contact insurance directly. Placed called to Marco Antonio, the rep stated they would not be able to back date the authorization and since patient's plan is set to on 01/03/2023 they would not authorize any new visits. Patient will need to submit an appeal to get her past visit covered. Called patient and informed of her this. Patient stated that [employer] has already received a copy of the letter. She will be switching insurances soon and will be able to resume seeing Dr. Kerr under her new insurance. Nani Marshall, Floor Service Worker [place] December 24, 2022 8:47 AM documented in this encounter [facility] 12-19-2022 Miscellaneous Notes Called patient to confirm appt for Friday 12/22. Patient upset that appt in September not covered by insurance and states that her insurance is no longer covering Patient asked me if I could check to see if her insurance is covered for her appt and I said unfortunately no that's up to her to check on. She got upset that it was something I could not do. I offered her the billing number for the September bill, she states she already has it. Then she said she is going to check with her insurance before cancelling Mondays appt and will get back to us about Mondays appt. So unsure if she will come in Thursday or not until she checks to see if she is covered. Yoon Francis MA documented in this encounter [facility] 12-18-2022 History of Present illness Narrative 1. Type 2 diabetes mellitus without retinopathy (HCC) Risk of diabetic changes and vision loss can be minimized by tight control of blood sugar, blood pressure, and cholesterol levels. Educated patient to continue care with primary care doctor and/or reliability technicians to maintain optimum levels as they are important to avoid ocular complications. Encouraged patient to call the office immediately with any changes to vision or visual concerns. Advised to not wait until the next scheduled exam. 2. Combined forms of age-related cataract of both eyes Slightly worse-monitor 3. Dry eye syndrome of bilateral lacrimal glands Recommended gel nightly and artificial tears 2-3x daily 4. Hyperopia, bilateral 5. Regular astigmatism, bilateral 6. Presbyopia Finalized spec rx Little change Follow-up in 1 year for diabetic eye exam or sooner as needed Adeline Huerta, JUAN December 18, 2022 1:52 PM documented in this encounter [facility] 12-18-2022 Instructions Adeline Huerta, OD - 12/18/2022 1:49 PM EDT Use Systane Complete or Refresh Relieva 2-3 times daily Use Systane, Refresh or Blink gel nightly before bed in both eyes documented in this encounter [facility] 12-17-2022 Miscellaneous Notes Referral to physical therapy entered into the [facility] portal on 12/17/2022. Confirmation number [id number]. documented in this encounter [facility] 12-17-2022 Miscellaneous Notes Referral to ophthalmology entered into the [facility] portal on 12/17/2022. Confirmation number [id number]. documented in this encounter [facility] 12-10-2022 Miscellaneous Notes Last Office Visit Date: 08/27/2022 Last [facility] Visit: Visit date not found Has the patient had an appointment at [facility] in the past year, or do they have an upcoming appointment scheduled at [facility]? YES- Continue with refill request. Future Appointment: 12/16/2022 Pharmacy faxed requesting the following refill Refill(s) Requested: Requested Prescriptions Pending Prescriptions Disp Refills alcohol swabs 200 Each 5 Sig: Use with blood glucose test 2 times daily. Insulin Dep? No Lancets lancets 200 Each 5 Sig: Use with blood glucose test 2 times daily. Insulin Dep? No blood sugar diagnostic test strip 200 Strip 5 Sig: Use with blood glucose test 2 times daily, Insulin Dep? No ALLERGIES Allergen Reactions Hydrocodone Vomiting Naproxen Anaphylaxis Sulfa (Sulfonamide * Other: See Comments, Rash Tramadol Hives, Rash Trazodone Hives, Rash (home) [phone] (cell) The patients preferred pharmacy has been captured for this encounter? yes Request is for script(s) to be escript to pharmacy. Gia Ayon LPN documented in this encounter [facility] 12-09-2022 Miscellaneous Notes Patient sent a UIBLUEPRINT message requesting the following refill. Requested Prescriptions Pending Prescriptions Disp Refills semaglutide (OZEMPIC) 2 mg/dose (8 mg/3 mL) pen injector 3 mL 0 Sig: Inject 2 mg subcutaneously one time a week. Next Appointment: 12/22/2022 Patient Phone numbers: [phone] (home) Request is for script(s) to be escript to pharmacy. Kailey Emerson Ma documented in this encounter [facility] 11-27-2022 Miscellaneous Notes Called patient Aurelio Bhakta on 11/27/22 at 8:30 am to schedule here 3 month follow up with Luzma Barillas, she was scheduled via phone appointment. Ree Rock November 27, 2022 8:45 AM documented in this encounter [facility] 11-26-2022 Instructions Luzma Barillas APRN.CNP - 11/26/2022 4:36 PM EDT Continue ozempic as prescribed by Dr Kerr. Complete an A1c, order placed F/u in 3 months documented in this encounter [facility] 11-26-2022 History of Present illness Narrative Endocrinology Virtual Visit This is a virtual visit using Audio only. It required patient-provider interaction for the medical decision making as documented below. I have communicated my name and active licensure. The patient's identity and physical location were verified at the time of this visit. Either the patient or their legal automotive sales representative has been informed of the risks and benefits of -- and alternatives to -- treatment through a remote evaluation and consents to proceed with the evaluation remotely. Aurelio is a 62 year old female who presents for diabetes management. Timeline: Diagnosed with type 2 diabetes 12/2021 Established care with endocrinology 05/2022 Complications: Nephropathy:none Neuropathy:none Diabetic retinopathy:none Current medications for diabetes: Ozempic 2mg from Dr Kerr (weight management) Taking JAILENE/ARB:yes Taking Statin:yes Previous medications for diabetes: glimepiride Today's visit: Patient presents via phone for diabetes followup. Last encounter with me 08/2022. She is checking blood sugars daily, typically in low 100's. She has been increased to 2mg of ozempic by Dr Kerr. Reports that she has lost about 42 lbs with being on ozempic. Last A1c 08/26 was well controlled. ___ Typical day/occupation: retired Diet: Typically eats 2 meals a day, trying to avoid carbs and sugars Exercise/activity: none, plans to increase Hypertension and lipids managed by PCP Denies frequent periods of hypoglycemia. Patient verbalized understanding of the signs and symptoms of hypoglycemia and its treatment options. Important Diabetes Lab History: HBA1C: 12/2021 6.6% 03/2022 6.8%. 08/2022 6.2% Thyroid Function Testin05/2021 TSH 1.44 Renal Function Testin05/2021 creatinine 0.85 GFR 73 Urine for Microalbumin: none on record Lipid Profile: 05/2021 TC 240 HDL 55 LDL 151 TG 200 Liver Profile: 05/2021 Alk Phos 67 AST 17 ALT 18 Important Diabetes Maintenance: Eye Exam: Patient educated to have ophthalmology visits at least once a year. 03/2022 went to [place] [facility]. Foot Exam: 05/2022 HISTORY REVIEWED (electronic chart updated): PAST MEDICAL HISTORY Diagnosis Date Elevated cholesterol Essential hypertension Prediabetes PAST SURGICAL HISTORY Procedure Laterality Date >=3 1989 2 C-Sections REPAIR ROTATOR CUFF,ACUTE 2020 FAMILY HISTORY Problem Relation Age of Onset Hypertension Mother Hypertension Sister Diabetes Sister Macular Degen Sister Detached Retina Sister Cataract Sister Cataract Maternal Grandmother Glaucoma No Family History Social History Tobacco Use Smoking status: Every Day Packs/day: 1 Types: Cigarettes Smokeless tobacco: Never Vaping Use Vaping Use: Never used Substance Use Topics Alcohol use: Not Currently Drug use: Not Currently Current Outpatient Medications Medication Sig hydrOXYzine HCl (ATARAX) 25 mg tablet Take 1 tablet by mouth four times daily as needed. montelukast (SINGULAIR) 10 mg tablet Take 1 tablet by mouth daily at bedtime. semaglutide (OZEMPIC) 2 mg/dose (8 mg/3 mL) pen injector Inject 2 mg subcutaneously one time a week. bumetanide (BUMEX) 1 mg tablet Take 1.5 tablets by mouth once daily. valsartan (DIOVAN) 160 mg tablet Take 1 tablet by mouth once daily. TRELEGY ELLIPTA 100-62.5-25 mcg inhalation powder Inhale 1 Puff as instructed once daily. albuterol HFA (PROVENTIL HFA, VENTOLIN HFA) 90 mcg/actuation inhaler Inhale 2 Puffs as instructed every 6 hours as needed. rosuvastatin (CRESTOR) 10 mg tablet Take 1 tablet by mouth once daily. metoprolol succinate ER (TOPROL XL) 25 mg 24 hr tablet Take 1 tablet by mouth once daily. esomeprazole (NEXIUM) 40 mg capsule Take 1 capsule by mouth once daily. nicotine (NICODERM CQ) 14 mg/24 hr Apply 1 Patch as directed every 24 hours. (Patient not taking: Reported on 09/15/2022) loperamide (IMODIUM) 2 mg cap(s) Take 1 capsule by mouth four times daily as needed for diarrhea for up to 15 days. lactobacillus rhamnosus (CULTURELLE) 15 billion cell capsule Take 1 capsule by mouth once daily. (Patient not taking: Reported on 09/15/2022) hemorrhoid ointment (PREPARATION H) 0.25-14-74.9 % rectal ointment by RECTAL route twice daily as needed. melatonin 3 mg tablet Take 1 tablet by mouth at bedtime as needed for for insomnia. alcohol swabs Use with blood glucose test 2 times daily. Insulin Dep? No Lancets lancets Use with blood glucose test 2 times daily. Insulin Dep? No blood sugar diagnostic test strip Use with blood glucose test 2 times daily, Insulin Dep? No ONETOUCH DELICA PLUS LANCET 30 gauge twice daily. FEROSUL 325 mg (65 mg iron) tablet Take 1 tablet by mouth once daily. (Patient taking differently: Take 1 tablet by mouth one time a week.) Blood-Glucose Meter 1 Each as needed. glucose 4 gram chewable tablet Take 4 tablets by mouth as needed for low blood sugar. No current facility-administered medications for this visit. ALLERGIES Allergen Reactions Hydrocodone Vomiting Naproxen Anaphylaxis Sulfa (Sulfonamide * Other: See Comments, Rash Tramadol Hives, Rash Trazodone Hives, Rash REVIEW OF SYSTEM: Review of Systems Constitutional: Negative for fatigue. Eyes: Negative for visual disturbance. Respiratory: Negative for difficulty breathing. Cardiovascular: Negative for chest pain. Gastrointestinal: Negative for abdominal pain. Skin: Negative for skin color change. PHYSICAL EXAMINATION: VIDEO EXAM: (if completed, performed via video enabled technology) Physical Exam No exam performed ASSESSMENT & PLAN: Plan ASSESSMENT/PLAN: 1. Type 2 diabetes mellitus without complication, without long-term current use of insulin ([facility]) - ICD9: 250.00, ICD10: E11.9 A1c not checked today. Order placed. Her recall of blood sugar self monitoring is encouraging. Last A1c was well controlled and she has had titration of GLP-1 through weight management. - HGB A1C Plan of care: 1. HbA1C order placed. 2. Medication changes: See below. Continue ozempic as prescribed by Dr Kerr. 3. Total time in direct patient contact = 15 min. Greater than 50% of the time was spent in counseling and/or coordination of care. 4. Self-monitoring blood glucose log sheets were given to the patient. Patient instructed to fill them out and bring to the next visit. 5. Comprehensive diabetic education provided. Answered all questions. 6. Educated patient on therapeutic lifestyle changes. 7. Patient verbalized understanding of all the above instructions. 8. Due for labs: See orders. Some elements may have been copied from previous notes but have been updated where appropriate and all reflect current medical decision making from today Follow up: Return in about 3 months (around 02/26/2023). Patient Instructions Continue ozempic as prescribed by Dr Kerr. Complete an A1c, order placed F/u in 3 months I spent a total of 23 minutes on the date of the service which included preparing to see the patient, completing clinical documentation, obtaining and/or reviewing separately obtained history, counseling and educating the patient/family/caregiver, ordering medications, tests, or procedures, independently interpreting results (not separately reported), communicating results to the patient/family/caregiver, and care coordination (not separately reported) Luzma Barillas APRN.FIELD MARKETING ASSOCIATE documented in this encounter [facility] 11-24-2022 Miscellaneous Notes Last Office Visit Date: 08/27/2022 Last Distance Health Visit: Visit date not found Has the patient had an appointment at [facility] in the past year, or do they have an upcoming appointment scheduled at [facility]? YES- Continue with refill request. Future Appointment: 12/16/2022 Pharmacy faxed requesting the following refill Refill(s) Requested: Requested Prescriptions Pending Prescriptions Disp Refills hydrOXYzine HCl (ATARAX) 25 mg tablet 120 tablet 0 Sig: Take 1 tablet by mouth four times daily as needed. montelukast (SINGULAIR) 10 mg tablet 90 tablet 0 Sig: Take 1 tablet by mouth daily at bedtime. ALLERGIES Allergen Reactions Hydrocodone Vomiting Naproxen Anaphylaxis Sulfa (Sulfonamide * Other: See Comments, Rash Tramadol Hives, Rash Trazodone Hives, Rash (home) [phone] (cell) The patients preferred pharmacy has been captured for this encounter? yes Request is for script(s) to be escript to pharmacy. Dougie Fernandez RN documented in this encounter [facility] 11-11-2022 Miscellaneous Notes Pharmacy sent a UIBLUEPRINT message requesting the following refill. Requested Prescriptions Pending Prescriptions Disp Refills semaglutide (OZEMPIC) 1 mg/dose (4 mg/3 mL) pen 3 mL 0 Sig: Inject 1 mg subcutaneously one time a week. Next Appointment: 12/22/2022 Patient Phone numbers: [phone] (home) Request is for script(s) to be escript to pharmacy. Kailey Emerson Ma documented in this encounter [facility] 11-11-2022 Miscellaneous Notes Pharmacy faxed requesting the following refill Refill(s) Requested: Requested Prescriptions Pending Prescriptions Disp Refills albuterol HFA (PROVENTIL HFA, VENTOLIN HFA) 90 mcg/actuation inhaler 1 Each 0 Sig: Inhale 2 Puffs as instructed every 6 hours as needed. Refused Prescriptions Disp Refills valsartan (DIOVAN) 160 mg tablet 90 tablet 0 Sig: Take 1 tablet by mouth once daily. bumetanide (BUMEX) 1 mg tablet 45 tablet 0 Sig: Take 1.5 tablets by mouth once daily. TRELEGY ELLIPTA 100-62.5-25 mcg inhalation powder 60 Each 0 Sig: Inhale 1 Puff as instructed once daily. ALLERGIES Allergen Reactions Hydrocodone Vomiting Naproxen Anaphylaxis Sulfa (Sulfonamide * Other: See Comments, Rash Tramadol Hives, Rash Trazodone Hives, Rash (home) [phone] (cell) Last Office Visit Date: 08/27/2022 Last [facility] Visit: Visit date not found Future Appointment: Visit date not found The patients preferred pharmacy has been captured for this encounter? yes Request is for script(s) to be escript to pharmacy. Amada Archer documented in this encounter [facility] 11-10-2022 Miscellaneous Notes Pharmacy faxed requesting the following refill Refill(s) Requested: Requested Prescriptions Pending Prescriptions Disp Refills bumetanide (BUMEX) 1 mg tablet 45 tablet 0 Sig: Take 1.5 tablets by mouth once daily. ALLERGIES Allergen Reactions Hydrocodone Vomiting Naproxen Anaphylaxis Sulfa (Sulfonamide * Other: See Comments, Rash Tramadol Hives, Rash Trazodone Hives, Rash (home) [phone] (cell) Last Office Visit Date: 08/27/2022 Last Distance Health Visit: Visit date not found Future Appointment: Visit date not found The patients preferred pharmacy has been captured for this encounter? yes Request is for script(s) to be escript to pharmacy. Gia Ayon LPN documented in this encounter [facility] 10-31-2022 Miscellaneous Notes Pharmacy faxed requesting the following refill Refill(s) Requested: Requested Prescriptions Pending Prescriptions Disp Refills rosuvastatin (CRESTOR) 10 mg tablet 90 tablet 0 Sig: Take 1 tablet by mouth once daily. ALLERGIES Allergen Reactions Hydrocodone Vomiting Naproxen Anaphylaxis Sulfa (Sulfonamide * Other: See Comments, Rash Tramadol Hives, Rash Trazodone Hives, Rash (home) [phone] (cell) Last Office Visit Date: 08/27/2022 Last [facility] Visit: Visit date not found Future Appointment: Visit date not found The patients preferred pharmacy has been captured for this encounter? yes Request is for script(s) to be escript to pharmacy. Dougie Fernandez RN documented in this encounter [facility] 10-20-2022 Miscellaneous Notes Patient sent a UIBLUEPRINT message requesting the following refill. Requested Prescriptions Pending Prescriptions Disp Refills semaglutide (OZEMPIC) 1 mg/dose (4 mg/3 mL) pen 3 mL 0 Sig: Inject 1 mg subcutaneously one time a week. Next Appointment: 12/22/2022 Patient Phone numbers: [phone] (home) Request is for script(s) to be escript to pharmacy. Kailey Emerson Ma documented in this encounter [facility] 09-19-2022 History of Present illness Narrative September 19, 2022 An order has been received for PAP titration study from luz Gaston. [facility] Staff. Visit prep complete. Comments :Yes, patient had a PSG on 07/16/22 that showed an AHI of 10.6. It was recommended that she could have a titration study. The sleep study is scheduled for 09/21/22. Insurance: Payor: [employer] / Plan: [employer] HMO / Product Type: HMO / Payer/Plan Subscr Sex Relation Sub. Ins. ID Effective Group Num 1. ANTHEM BLUE C* AURELIO BHAKTA 1960 Female Self [id number] 09/04/22 [address] 2. MEDICAID [place] -* AURELIO BHAKTA 1960 Female Self [id number] 11[birth year]/21 [address] September 19, 2022 Standing PSG Orders signed in the last 90 days None Future PSG Orders signed in the last 90 days Ordered Auth. provider PAP TITRATION PSG (CPAP, BIPAP, ASV) [[id number]] 08/04/22 Solis Bedoya MD Assoc. diagnoses: KYAW (obstructive sleep apnea) [G47.33] Q: Special Needs (e.g.behavior, non-ambulatory, >450 lbs)?: A: No Q: Prior PAP (CPAP or Bilevel PAP) Use?: A: No Q: Sleep History: A: Sleep apnea All Prior Sleep Studies (past 365 days) Some values may be hidden. Unless noted otherwise, only the newest values recorded on each date are displayed. Sleep Studies CONSULT TO SLEEP MEDICINE - ADULT Future Expected: Expires: PAP TITRATION PSG (CPAP, BIPAP, ASV) Future Expected: Expires: 09/03/23 POLYSOMNOGRAM (PSG) Date: 07/16/22 BMI Readings from Last 2 Encounters: 09/15/22 : 32.79 kg/m 08/27/22 : 33.46 kg/m PAST MEDICAL HISTORY Diagnosis Date Elevated cholesterol Essential hypertension Prediabetes The medical record was reviewed to determine if the proposed sleep study conforms to the AASM Practice Parameters for the Indications for Polysomnography and Related Procedures, or if the sleep study is indicated for other reasons. Indications for study: KYAW previously diagnosed: Evaluate response to PAP therapy Sleep study to be performed: PAP titration study Special instructions: Target REM/supine sleep [facility] Staff Note: I have read the above protocol, edited as needed, and agree to the plan. Ricki Carreon MD 12:12 PM, 09/19/2022 Inna Choigomery documented in this encounter [facility] 09-17-2022 Miscellaneous Notes Thank you so much for your help with this patient. That's great that her blood pressures have been improving with her weight loss! I completely agree with your approach - if she could log her BP for a couple days for me [1 hour after taking her meds], that would be very helpful. And then if her pressures are consistently well-controlled, we can likely discontinue medications. Thanks again, Marvel Sam DO Patient called to report that her BP is coming down with her losing weight. She states that she was at [facility] yesterday and that the provider was going to message PCP office about her BP lowering due to her weight lose. Patient questioning if she really needs to be on doses of medication that she currently takes daily. Patient noted that this morning her BP was 114/66 before taking medication. At bariatric office yesterday her BP was 112/64. Last OV in this office BP 109/74. Advised patient to log BP 1 hour after taking AM meds and then at HS. Patient will send readings via [employer]. Patient wants to ask about provider opinion before setting up OV. Please adviseAlmas LPN 09/16/22 11:52 AM documented in this encounter [facility] 09-15-2022 History of Present illness Narrative Images from the original note were not included. Elsa Kerr MD [facility] [address] [place] [address], [address] [facility] - Fourth Floor [place] [address] Aurelio Bhakta is a 62 year old female with has a past medical history of Elevated cholesterol, Essential hypertension, and Prediabetes. of obesity here today for a follow up on her weight loss efforts. She is currently taking the prescription weight loss medication Ozempic, off label Concerns: Pt reports she is doing well on current dosage Weight coming down Weight down 21 lb Fasting blood sugars running 80-102 Stopped all sodas More water Eating less quantity She is continuing with diet changes: yes -Main focus of dietary changes: more veg and fruit Decreased carbs She is continuing with exercise changes: yes -Exercise routine: lot more active Walking Goal weight: 140 Review of weight loss medication side effects Any GI upset? no Changes to blood pressure? no Visual Changes: no -- Patient reports suppression of her appetite and increase in satiety since starting the medication Diet: Breakfast Snacks Lunch Dinner snacks Satiety Satiation Cravings Sleep: Stress: Smoking/Alcohol - Exercise Freq: Barriers: Work-related activity: Sedentary ROS VITALS: BP 112/64 (BP Site: Right Arm, BP Position: Sitting, BP Cuff Size: Large Adult) Pulse 80 Ht 163.8 cm (5' 4.5) Wt 88 kg (194 lb) BMI 32.79 kg/m , Body mass index is 32.79 kg/m . Physical Exam Constitutional:. --no issues with communication HEENT: Normocephalic and atraumatic. Eyes: Conjunctiva appear normal. No scleral icterus. Hearing: Is grossly intact. Neck: Range of motion appears normal. Thyroid: appears symmetric and not enlarged. Pulmonary/Chest: Effort normal. Psychiatric: Mood, memory, affect and judgment normal. Neurological: alert and oriented to person, place, and time. Impression and Plan: She is doing well otherwise, continues lifestyle modification. She remains motivated to lose weight. Reviewed principles of energy metabolism, caloric intake and expenditure, and rationale for treatment program. Also reinforced need for reduced calorie, low fat diet and increased physical activity. ASSESSMENT/PLAN: 1. Obesity, Class II, BMI 35-39.9 - ICD9: 278.00, ICD10: E66.9 (primary diagnosis) Weight decreasing Total weight loss with aom and diabetes treatment 27 lb Pt to message me in few weeks before refill if feels needs dose titration based on appetite suppression, clinical response - Behavioral and pharmacological intervention and - Continue current medications 2. Type 2 diabetes mellitus without complication, without long-term current use of insulin (HCC) - ICD9: 250.00, ICD10: E11.9 - Improving control A1C improved Fasting Blood sugars improved - Continue current medications - SEMAGLUTIDE 0.25 MG OR 0.5 MG (2 MG/3 ML) SUBCUTANEOUS PEN INJECTOR Elsa Kerr MD Some elements were copied from my last note, which have been updated where appropriate, and all reflect current medical decision making from TODAY I spent a total of 30 minutes on the date of the service which included preparing to see the patient, completing clinical documentation, obtaining and/or reviewing separately obtained history, performing a medically appropriate examination, counseling and educating the patient/family/caregiver, ordering medications, tests, or procedures,independently interpreting results (not separately reported), communicating results to the patient/family/caregiver and care coordination (not separately reported). documented in this encounter [facility] 09-10-2022 Miscellaneous Notes Please route telephone encounter to the Clerical Pool ([facility] Clerical [place]) Patient notified. Anabell Davis, Maintenance Engineer [employer] September 10, 2022 4:16 PM Referral placed. Thanks so much, Marvel Sam DO Addended by: MARVEL SAM on: 09/10/2022 03:31 PM Modules accepted: Orders Please route telephone encounter to the Clerical Pool ([facility] Clerical [place]) Patient given results. She would like a referral placed to physical therapy for her shoulder. Thanks Anabell Davis, Maintenance Engineer [employer] September 10, 2022 2:47 PM The x-ray of her right shoulder showed changes related to her prior shoulder surgery, with some narrowing of the joint space [which can commonly be seen after surgery and with aging]. There were no fractures or dislocations noted, and no signs of bone degeneration in the shoulder [so no obvious signs of arthritis]. Overall, the image was unremarkable for identifying any source of shoulder pain. Continuing muscle strengthening / stretching with Physical Therapy is likely the best option to mitigate any discomfort she may be having. Thanks so much, Marvel Sam DO Please route telephone encounter to the Clerical Pool ([facility] Clerical Pool) Patient called requesting results of her shoulder xray. Anabell Davis, Maintenance Engineer [employer] September 10, 2022 10:33 AM documented in this encounter [facility] 09-09-2022 Miscellaneous Notes Pharmacy faxed requesting the following refill Refill(s) Requested: Requested Prescriptions Pending Prescriptions Disp Refills hydrOXYzine HCl (ATARAX) 25 mg tablet 120 tablet 0 Sig: Take 1 tablet by mouth four times daily as needed. ALLERGIES Allergen Reactions Hydrocodone Vomiting Naproxen Anaphylaxis Sulfa (Sulfonamide * Other: See Comments, Rash Tramadol Hives, Rash Trazodone Hives, Rash (home) [phone] (cell) Last Office Visit Date: 08/27/2022 Last [facility] Visit: Visit date not found Future Appointment: Visit date not found The patients preferred pharmacy has been captured for this encounter? yes Request is for script(s) to be escript to mail order [facility]. Gia Ayon LPN documented in this encounter [facility] 08-28-2022 History of Present illness Narrative Radiology Service Progress Note PATIENT NAME: Aurelio Bhakta DATE OF SERVICE: August 28, 2022 TIME: 3:36 PM PATIENT IDENTITY VERIFICATION COMPLETED USING TWO (2) IDENTIFIERS: Name and Date of confirmed by patient verbally. FALL SCREENING: Has the patient had 2 falls in the last year or 1 fall with injury or currently using an Ambulatory Assistive Device (Walker, Cane, Wheelchair, Crutches, etc.)? No PATIENT GENDER DATA: Female. status: : No status: NO. PATIENT RELEVANT IMPLANT DATA REVIEWED: Not Applicable RADIOLOGY DEPARTMENT: General X-ray: Exam(s) Completed: Upper Extremity X-Ray(s): Shoulder, Y VIEW right , AP/Y VIEW PERIPHERAL IV DATA: Not applicable SIGNED BY: RT Gissell(R) August 28, 2022 3:36 PM documented in this encounter [facility] 08-19-2022 Miscellaneous Notes Call patient Recommend she stop the metformin as this may be the cause of the diarrhea she is having. We will keep current dose of ozempic for now, would like to see diarrhea improve before increasing. Recommend over the counter probiotic supplement of her choice. Please ask her to give us an update on symptoms after stopping metformin. Thanks, Dr. Kerr Patient has been having diarrhea 5 rimes a day for the last month. It is just like water she said with no stomach pain. She thinks it is from the Metformin. She is also having is with Hemorrhoids. Kailey Emerson Ma Left voicemail for patient to inquire about Dr. Kerr's message. Cara De Leon MA Please find out more info regarding the diarrhea, how often? Has this been constant and did she notice this get worse after increasing to 2 tabs on metformin? Thanks, Dr. Kerr Phone call from [facility] stating that patient needs a new prescription for Ozempic since she switched pharmacies. I spoke with the patient and she states that other than having some diarrhea she has been doing okay on current dose of 0.5 mg. She is okay with increasing dosage if you feel that it is necessary. Patients current weight is 199 lb. Cara De Leon MA documented in this encounter [facility] 08-18-2022 Miscellaneous Notes Patient sent a UIBLUEPRINT message requesting the following refill. Requested Prescriptions Pending Prescriptions Disp Refills metFORMIN ER (GLUCOPHAGE XR) 500 mg 24 hr tablet 180 tablet 1 Sig: Take 2 tablets by mouth daily with dinner. Next Appointment: 08/18/2022 Patient Phone numbers: [phone] (home) Request is for script(s) to be escript to pharmacy. Kailey Emerson Ma documented in this encounter [facility] 08-18-2022 Miscellaneous Notes Pharmacy faxed requesting the following refill Refill(s) Requested: Requested Prescriptions Pending Prescriptions Disp Refills TRELEGY ELLIPTA 100-62.5-25 mcg inhalation powder 60 Each 0 Sig: Inhale 1 Puff as instructed once daily. Refused Prescriptions Disp Refills esomeprazole (NEXIUM) 40 mg capsule 90 capsule 0 Sig: Take 1 capsule by mouth once daily. ALLERGIES Allergen Reactions Hydrocodone Vomiting Naproxen Anaphylaxis Sulfa (Sulfonamide * Other: See Comments, Rash Tramadol Hives, Rash Trazodone Hives, Rash (home) [phone] (cell) Last Office Visit Date: 05/22/2022 Last [facility] Visit: Visit date not found Future Appointment: 08/18/2022 The patients preferred pharmacy has been captured for this encounter? yes Request is for script(s) to be escript to pharmacy. Amada Archer documented in this encounter [facility] 08-18-2022 Miscellaneous Notes Preferred pharmacy has been updated to [facility] Almas Santizo LPN 08/18/22 9:10 AM documented in this encounter [facility] 08-15-2022 Miscellaneous Notes Order placed for X-ray. Thanks so much, Marvel Sam DO Patient called, she requests an xray of her R shoulder. She states a family member suggested that she get an xray before she gets physical therapy. Clerical will call patient with PCP's response. Marilyn Duran, Maintenance Engineer [employer] August 13, 2022 4:36 PM documented in this encounter [facility] 08-11-2022 Miscellaneous Notes Leigha from [facility] called. She states patient did not receive the requested medications that they mailed, she wanted new escripts so they can mail them to her again. Ref#[id number] Rx mail pharmacy called requesting the following refill Refill(s) Requested: Requested Prescriptions Pending Prescriptions Disp Refills rosuvastatin (CRESTOR) 10 mg tablet 90 tablet 0 Sig: Take 1 tablet by mouth once daily. metoprolol succinate ER (TOPROL XL) 25 mg 24 hr tablet 90 tablet 0 Sig: Take 1 tablet by mouth once daily. ALLERGIES Allergen Reactions Hydrocodone Vomiting Naproxen Anaphylaxis Sulfa (Sulfonamide * Other: See Comments, Rash Tramadol Hives, Rash Trazodone Hives, Rash (home) [phone] (cell) Last Office Visit Date: 05/22/2022 Last [facility] Visit: Visit date not found Future Appointment: 08/27/2022 The patients preferred pharmacy has been captured for this encounter? yes Request is for script(s) to be escript to mail order [facility]. Marilyn Duran documented in this encounter [facility] 08-04-2022 Miscellaneous Notes Please inform the patient of the following results: Her polysomnogram [sleep study] did reveal mild obstructive sleep apnea, which was exacerbated to severe obstructive sleep apnea while lying on her back. The recommendation of the Sleep Medicine physician was to return to the office for a CPAP titration study, so that the patient can begin using a CPAP machine to treat her obstructive sleep apnea. I will place the order for that titration study now. I can speak with the patient further if she has any other questions. Thanks so much, Marvel Sam DO documented in this encounter [facility] 07-23-2022 Miscellaneous Notes Pharmacy faxed requesting the following refill Refill(s) Requested: Requested Prescriptions Pending Prescriptions Disp Refills bumetanide (BUMEX) 1 mg tablet 45 tablet 0 Sig: Take 1.5 tablets by mouth once daily. ALLERGIES Allergen Reactions Hydrocodone Vomiting Naproxen Anaphylaxis Sulfa (Sulfonamide * Other: See Comments, Rash Tramadol Hives, Rash Trazodone Hives, Rash (home) [phone] (cell) Last Office Visit Date: 05/22/2022 Last [facility] Visit: Visit date not found Future Appointment: 07/29/2022 The patients preferred pharmacy has been captured for this encounter? yes Request is for script(s) to be escript to pharmacy. Amada Archer documented in this encounter [facility] 07-17-2022 History of Present illness Narrative Sleep Study Check-In Documentation Date: July 17, 2022 Name: Aurelio Bhakta Patient was accompanied by Self. Location: [facility] Latex allergy: No Tape allergy: No Current medications were reviewed with the patient:Yes Sleep aid taken by patient for the sleep study: Level Green of sleep aid: Not Applicable Procedure was explained to the patient and all questions were answered. PAP treatment discussed with patient: Yes Knowledge Program (KP): KP was not completed in epic by patient and accepted Study type: Polysomnogram Adverse Event: No (If yes create a new abstract) Comments: Patient was advised to follow up with their ordering provider regarding test results Hannah Ramos documented in this encounter [facility] 07-16-2022 Miscellaneous Notes Pharmacy faxed requesting the following refill Refill(s) Requested: Requested Prescriptions Pending Prescriptions Disp Refills rosuvastatin (CRESTOR) 10 mg tablet 90 tablet 0 Sig: Take 1 tablet by mouth once daily. ALLERGIES Allergen Reactions Hydrocodone Vomiting Naproxen Anaphylaxis Sulfa (Sulfonamide * Other: See Comments, Rash Tramadol Hives, Rash Trazodone Hives, Rash (home) [phone] (cell) Last Office Visit Date: 05/22/2022 Last [facility] Visit: Visit date not found Future Appointment: 07/29/2022 The patients preferred pharmacy has been captured for this encounter? yes Request is for script(s) to be escript to pharmacy. Amada Archer documented in this encounter [facility] 07-10-2022 Miscellaneous Notes Spoke with pt, her last colonoscopy was done last year at [facility]. Encouraged pt to have results fax'd to PCP, so that her results can be scanned into her account and her health maintenance can be updated. Jelly Clayton RN Surgical Nurse Navigator documented in this encounter [facility] 07-08-2022 History of Present illness Narrative July 08, 2022 An order has been received for Polysomnogram (PSG) from Dr. Marvel Martinez [facility] Staff. Visit prep complete. Comments :Yes, COPD , Lower leg extremity edema, HTN,BMI 36.27 Patient has complaints of EDS, DIMS,snoring, frequent awakenings. Leg cramps The sleep study is scheduled for 07/16/2022pril 2022 Standing PSG Orders signed in the last 90 days None Future PSG Orders signed in the last 90 days Ordered Auth. provider CONSULT TO SLEEP MEDICINE - ADULT [[id number]] 05/12/22 Elsa Kerr MD Assoc. diagnoses: Snoring [R06.83] Q: Does consulting provider have [facility] Epic access?: A: Yes POLYSOMNOGRAM (PSG) [[id number]] 05/22/22 Solis Bedoya MD Assoc. diagnoses: Daytime sleepiness [R40.0] Q: Indications - Select All That Apply: A: Obstructive sleep apnea Q: STOP-BANG conditions - Select All That Apply: A: BMI > 35 kg/m2 A2: AGE > 50 A3: high blood PRESSURE Q: Comorbidities: A: NONE Q: Is the patient non-ambulatory or will they be accompanied by a caregiver?: A: No Q: Current use of supplemental oxygen during sleep period?: A: No Q: Add supplemental oxygen if needed per sleep lab policy?: A: Yes Q: Is this a repeat Sleep Study?: A: No All Prior Sleep Studies (past 365 days) Some values may be hidden. Unless noted otherwise, only the newest values recorded on each date are displayed. Sleep Studies CONSULT TO SLEEP MEDICINE - ADULT Future Expected: Expires: POLYSOMNOGRAM (PSG) Future Expected: Expires: 05/22/23 BMI Readings from Last 2 Encounters: 06/30/22 : 36.27 kg/m 06/09/22 : 36.64 kg/m PAST MEDICAL HISTORY Diagnosis Date Elevated cholesterol Essential hypertension Prediabetes The medical record was reviewed to determine if the proposed sleep study conforms to the AASM Practice Parameters for the Indications for Polysomnography and Related Procedures, or if the sleep study is indicated for other reasons. Indications for study: KYAW suspected with comorbid medical or sleep disorders: Ivkmiazh-ul-ehmxmk pulmonary disease Sleep study to be performed: Polysomnogram Special instructions: None-follow laboratory protocol Target REM/supine sleep Poly-T Elizabeth [facility] Sleep [facility] Staff Note: I have read the above protocol, edited as needed, and agree to the plan. Gabriele Hilliard MD 5:25 PM, 07/14/2022 Insurance: Payor: [employer] MEDICARE / Plan: [employer] MEDICARE ASSURE HMO D SNP / Product Type: Medicare / Payer/Plan Subscr Sex Relation Sub. Ins. ID Effective Group Num 1. [employer] MEDICAR* AURELIO BHAKTA 1960 Female Self [id number] [birth year] [id number] [address] 2. MEDICAID [place] -* AURELIO BHAKTA 1960 Female Self [id number] [birth year] [address] Poly-T Elizabeth Blaine documented in this encounter [facility] 06-30-2022 History of Present illness Narrative Episode Visit Count: 1 Therapist That Will Accept/Oversee The Plan Of Care: Leigha Torres Start of Care Date: 06/30/22 Onset Date: 08/04/20 Plan of Care Certification Date: 06/30/22 Next Certification Due Date: 08/30/22 Patient Identified by Name and Date of : Yes REHABILITATION AND SPORTS THERAPY PHYSICAL THERAPY EVALUATION PLAN OF CARE: Assessment: Aurelio Bhakta presents with diagnosis of disorder of R rotator cuff that interferes with reaching overhead, use hand with arm at shoulder level, reaching behind back, sleeping, cleaning, cooking (everything) . She presents with impairments in overall function, posture, range of motion, strength, and symptom management. PROMIS (Patient-Reported Outcomes Measurement Information System) scores were reviewed and physical function domain and self efficacy domain identified as a rehabilitation concern. Prognosis for therapy is Good due to: current objective clinical presentation, good overall health status, good support system/ coping skills, Prognosis may be limited due to chronic nature of impairments, limited tolerance to activity . She will benefit from skilled therapy services to meet the goals established for this plan of care as noted below. Goals for Episode of Care: created on 06/30/22 through 08/30/22 [place] in home exercise program. Patient will decrease pain rating by 2 points to meet minimal clinical important difference for numeric pain rating scale. Patient will increase active ROM of R shld to 120-150 flex and abd, IR to lumbar spine and ER to 60-70deg to allow pt to to improve postural alignment and to improve performance of ADLs. Patient will demonstrate increase in R UE strength to 4+ to5 /5 during manual muscle testing in order to improve function for home management tasks, leisure / recreation skills, and prior functional tasks. Perform reaching overhead;use hand with arm at shoulder level;reaching behind back;sleeping;cleaning;cooking; with decreased report of symptoms/pain in 4-8 weeks. Improve postural awareness. Patient Goals: To strengthen up my shoulder. To reduce the pain. Planned Interventions, Frequency, and Duration: Current Frequency: 2x/week Duration: 8 weeks Total Number of Visits Planned: 16 Planned Treatment Interventions: Therapeutic exercise (23861), Neuromuscular re-education (39257), Manual therapy (15007), Patient/Family/Caregiver Education PLAN FOR NEXT VISIT: Measure shld AROM. Assess response to HEP. Review with corrections as needed. Continue with exercise, passive shld stretches, manual techniques for soft tissue restrictions. Patient demonstrates good understanding of plan of care and treatment. The above goals and plan of care were discussed and agreed upon by patient/family. SUBJECTIVE: Aurelio Bhakta is a 62 year old female seen today for Pt notes R shld pain since having surgery in August of 2020. She states she had some PT after surgery, but her insurance allowed visits ran out. Has continued to have pain that is recently worsening. She notes the pain is constant. Sometimes I can't hardly lift it. Patient Goals: To strengthen up my shoulder. To reduce the pain. Functional Limitations: reaching overhead, use hand with arm at shoulder level, reaching behind back, sleeping, cleaning, cooking (everything) Prior Level of Function: Independent without limitations Relevant History Right or Left Handed: Right Intake Information: Prescription present Previous Treatment: Physical Therapy , Injections , Topicals (Cortisone injection 09/25 was helpful for about 3 months.) Pain: Pain Pain Level: 5 (up to 9/10 at worst (with lifting arm/activity)) Pain Location: Shoulder - Right (anterior shld, subacromial space) Description: Sore Frequency: Continuous Post Treatment Pain Post Treatment Pain Level: 5 PROMIS Scales Higher is Better 06/29/2022 06/09/2022 Phys Func - Score 35 (moderate dysfunction) 43 (mild dysfunction) Phys Func - Percentile 7 % 24 % Self-Eff Symptom - Score 40 (Average) 48 (Average) Self-Eff Symptom - Percentile 16 % 42 % T-scores: mean of general population = 50. 5 points is clinically meaningfully difference Percentiles provide an indication of how the patient's score ranks in relation to the general population. Higher percentile rankings indicate better function/quality of life. 50th percentile is the average of the general population and indicates half of respondents had a worse score. OBJECTIVE MEASURES WITH LEVEL OF FUNCTION: Shoulder Observations R Shoulder Palpation Tenderness: Bicipital groove, Rotator cuff muscles, Comments R Shoulder Palpation Tenderness Comments: anterior subacromial space and proximal bicep and tendon UE AROM R UE AROM: observed abd to just over 90deg with pain L UE AROM: WNL UE and Cervical Strength Strength Tested: Shoulder All L UE Strength: 4+ to 5/5 R Shoulder Flexion: 4-/5 (pain) R Shoulder Abduction (C5): 4-/5 (pain) R Shoulder Internal Rotation: 4/5 (end range pain) R Shoulder External Rotation: 4/5 (minimal pain) R Elbow Extension (C7): 4/5 R Elbow Flexion (C6): 4/5 (min pain) Special Tests - Shoulder Shoulder Special Tests: Empty Can (forearm supination resisted caused bicep and tendon pain R) Empty Can: Right Positive, Left Negative Education: Education Learning Preferences: Demonstration, Explanation Barriers: None Learning/educational needs: Home exercise program, Plan of Care, Posture Education Provided: Yes, see treatment interventions for education provided Education Provided To: Patient Education Mode/Type: Demonstration, Explanation/Discussion, Literature/Printed Materials, Performance Response to Education/Teach Back: States/Identifies, Return Demonstration TREATMENT: PT Treatment Interventions: Therapeutic Exercise, Manual Therapy Evaluation Therapeutic Exercise: 1: *posterior shld circles 2 x10 2: *shld isometric adduction (pillow squeeze) x 10 3: *shld positioning (propped with pillow) Skilled Intervention: Patient was educated in proper exercise technique and purpose for exercises. Skilled judgment was provided in selection of appropriate interventions. Provided written instruction for home exercise program to facilitate proper performance and compliance. Correct performance of therapeutic exercises was facilitated with verbal and visual cuing. Patient education as noted. Manual Therapy: 1: tennis ball soft tissue mobilization R upper traps, intrascapular musculature with pt in sitting x 5 min 2: *Instruction in self-mobilization using tennis ball in a sock against the wall. Skilled Intervention: Manual skills to improve joint mobility, ROM, and decrease pain. Utilized anatomy knowledge of the therapist, and assessment of patient's response to intervention. Billing * Evaluation Low Complexity: 1 Unit Therapeutic Exercise Treatment Minutes: 15 Manual TherapyTreatment Minutes: 10 Total Treatment Time Minutes (timed/untimed): 47 Leigha Torres PT documented in this encounter [facility] 06-30-2022 Miscellaneous Notes Patient [employer] message requesting the following refill Refill(s) Requested: Requested Prescriptions Pending Prescriptions Disp Refills alcohol swabs 200 Each 5 Sig: Use with blood glucose test 2 times daily. Insulin Dep? No Lancets lancets 200 Each 5 Sig: Use with blood glucose test 2 times daily. Insulin Dep? No blood sugar diagnostic test strip 200 Strip 5 Sig: Use with blood glucose test 2 times daily, Insulin Dep? No melatonin 3 mg tablet 30 tablet 0 Sig: Take 1 tablet by mouth at bedtime as needed for for insomnia. Refused Prescriptions Disp Refills semaglutide (OZEMPIC) 0.25 mg or 0.5 mg(2 mg/1.5 mL) pen 1.5 mL 0 Sig: Inject 0.25 mg subcutaneously one time a week. bumetanide (BUMEX) 1 mg tablet 45 tablet 0 Sig: Take 1.5 tablets by mouth once daily. ALLERGIES Allergen Reactions Hydrocodone Vomiting Naproxen Anaphylaxis Sulfa (Sulfonamide * Other: See Comments, Rash Tramadol Hives, Rash Trazodone Hives, Rash (home) [phone] (cell) Last Office Visit Date: 05/22/2022 Last [facility] Visit: Visit date not found Future Appointment: 07/29/2022 The patients preferred pharmacy has been captured for this encounter? yes Request is for script(s) to be escript to pharmacy. Elizabeth Collier LPN documented in this encounter [facility] 06-30-2022 History of Present illness Narrative Images from the original note were not included. Elsa Kerr MD [facility] [address] [facility], [facility] [address] [place] [address] Aurelio Bhakta is a 62 year old female with has a past medical history of Elevated cholesterol, Essential hypertension, and Prediabetes. of here today for a follow up on her weight loss efforts. She is currently taking the prescription weight loss medication ozempic metformin Concerns: Doing well with medication She has 2 more shots at current dose Denies side effects Less quantity Able to eat less She is continuing with diet changes: yes -Main focus of dietary changes: protein vegetables Off carbs, no soda She is continuing with exercise changes: no -Exercise routine: plans to start walking Has been active around the house Goal weight: Review of weight loss medication side effects Any GI upset? no Changes to blood pressure? no Visual Changes: no -- Patient reports suppression of her appetite and increase in satiety since starting the medication Diet: Breakfast 2 pieces of roque Eggs and toast and sugar free jelly Snacks Lunch Occ skips Or Light salad or yogurt Dinner Baked chicken Rice Idamay on the cob snacks Satiety Satiation yes Cravings no Sleep: Terrible --has appt with sleep center 07/16 Stress: Getting ready to move Smoking/Alcohol - Exercise Freq: Barriers: Work-related activity: ROS VITALS: BP 132/76 Pulse 76 Ht 163.8 cm (5' 4.5) Wt 97.3 kg (214 lb 9.6 oz) BMI 36.27 kg/m , Body mass index is 36.27 kg/m . Physical Exam Constitutional:. --no issues with communication HEENT: Normocephalic and atraumatic. Eyes: Conjunctiva appear normal. No scleral icterus. Hearing: Is grossly intact. Neck: Range of motion appears normal. Thyroid: appears symmetric and not enlarged. Pulmonary/Chest: Effort normal. Psychiatric: Mood, memory, affect and judgment normal. Neurological: alert and oriented to person, place, and time. Impression and Plan: ASSESSMENT/PLAN: 1. Type 2 diabetes mellitus without complication, without long-term current use of insulin ([facility]) - ICD9: 250.00, ICD10: E11.9 (primary diagnosis) Plan to recheck A1C in 2 months Doing well with dietary modifications - Continue current medications--increase ozempic to 0.5 mg - SEMAGLUTIDE 0.25 MG OR 0.5 MG (2 MG/1.5 ML) SUBCUTANEOUS PEN INJECTOR - HGB A1C 2. Class 2 severe obesity due to excess calories with serious comorbidity and body mass index (BMI) of 36.0 to 36.9 in adult ([facility]) - ICD9: 278.01, V85.36, ICD10: E66.01, Z68.36 Weight decreasing - Behavioral and pharmacological intervention and - Continue current medications- Increase Ozempic to 0.5 mg 3. Essential hypertension - ICD9: 401.9, ICD10: I10 - fair control - Recommended regular aerobic exercise. - Recommend home blood pressure monitoring - Goal of BP <130/80 She is doing well otherwise, continues lifestyle modification. She remains motivated to lose weight. Reviewed principles of energy metabolism, caloric intake and expenditure, and rationale for treatment program. Also reinforced need for reduced calorie, low fat diet and increased physical activity. Elsa Kerr MD I spent a total of 30 minutes on the date of the service which included preparing to see the patient, completing clinical documentation, obtaining and/or reviewing separately obtained history, performing a medically appropriate examination, counseling and educating the patient/family/caregiver, ordering medications, tests, or procedures,independently interpreting results (not separately reported), communicating results to the patient/family/caregiver and care coordination (not separately reported). Some elements were copied from my last note, which have been updated where appropriate, and all reflect current medical decision making from TODAY documented in this encounter [facility] 06-24-2022 Miscellaneous Notes Pharmacy faxed requesting the following refill Refill(s) Requested: Requested Prescriptions Pending Prescriptions Disp Refills bumetanide (BUMEX) 1 mg tablet 45 tablet 0 Sig: Take 1.5 tablets by mouth once daily. ALLERGIES Allergen Reactions Hydrocodone Vomiting Naproxen Anaphylaxis Sulfa (Sulfonamide * Other: See Comments, Rash Tramadol Hives, Rash Trazodone Hives, Rash (home) [phone] (cell) Last Office Visit Date: 05/22/2022 Last [facility] Visit: Visit date not found Future Appointment: 07/29/2022 The patients preferred pharmacy has been captured for this encounter? yes Request is for script(s) to be escript to pharmacy. Elizabeth Collier LPN documented in this encounter [facility] 06-24-2022 Miscellaneous Notes Requesting 90 day supply Rx mail pharmacy called requesting the following refill Refill(s) Requested: Requested Prescriptions Pending Prescriptions Disp Refills hydrOXYzine HCl (ATARAX) 25 mg tablet 120 tablet 0 Sig: Take 1 tablet by mouth four times daily as needed. ALLERGIES Allergen Reactions Hydrocodone Vomiting Naproxen Anaphylaxis Sulfa (Sulfonamide * Other: See Comments, Rash Tramadol Hives, Rash Trazodone Hives, Rash (home) [phone] (cell) Last Office Visit Date: 05/22/2022 Last [facility] Visit: Visit date not found Future Appointment: 07/29/2022 The patients preferred pharmacy has been captured for this encounter? yes Request is for script(s) to be escript to mail order [facility]. Marilyn Duran documented in this encounter [facility] 06-19-2022 Miscellaneous Notes Charito diomedes called stating they need a referral place to get this pt sched for colonoscopy. She was placed in portal. Thanks, Katlyn Ko RN documented in this encounter [facility] 06-09-2022 History of Present illness Narrative 06/09/22 5:16 PM HPI: Aurelio Bhakta is a 62 year old female No obstetric history on file. who presents for new patient annual. 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 Reports history of cervical CA 42 years ago; had it frozen. States caused by control pills. Pap: Due. Quite some time Mammo: 04/2021 Colon: year follow up per patient. DXA: Never Menses: Postmenopausal control: BTL Menopause: 41 yoa Gardasil: NA HRT: Denies PMB: Denies Pain Scale: 0/10 History of anxiety disorder: Yes, meds. Denies SI/ HI Concern for exposure to STDs: Denies Symptoms suggestive of Irritable Bowel Syndrome: Denies Dysuria, urinary frequency or urgency: Denies Vaginal discharge:Denies Itching:Denies Sexually active: Denies Dyspareunia: NA Bladder control: Good Bowel: Diarrhea. Gastroparesis. CHIEF NURSING OFFICER history: Menarche: 9 yoa Prior contraception: BTL, IUD, pills History ofSTIs/PID:Denies History of unwanted sexual contact, verbal/physical/sexual assault or abuse: Denies Abnormal Paps:Yes. History of cryotherapy for cervix CA. FMH of breast/ovarian/colon or uterine cancer: Maternal aunt with breast CA dx @ unknown age, around 40-50 yoa. Genetic testing: Denies FAMILY HISTORY Problem Relation Age of Onset Hypertension Mother Hypertension Sister Diabetes Sister Macular Degen Sister Detached Retina Sister Cataract Sister Cataract Maternal Grandmother Glaucoma No Family History ALLERGIES Allergen Reactions Hydrocodone Vomiting Naproxen Anaphylaxis Sulfa (Sulfonamide * Other: See Comments, Rash Tramadol Hives, Rash Trazodone Hives, Rash PRESENT MEDICATIONS: Current Outpatient Medications Medication Sig semaglutide (OZEMPIC) 0.25 mg or 0.5 mg(2 mg/1.5 mL) pen Inject 0.25 mg subcutaneously one time a week. melatonin 3 mg tablet Take 1 tablet by mouth at bedtime as needed for for insomnia. diclofenac (VOLTAREN ARTHRITIS PAIN) 1 % topical gel Apply 2 g to affected area four times daily. bumetanide (BUMEX) 1 mg tablet Take 1.5 tablets by mouth once daily. hydrOXYzine HCl (ATARAX) 25 mg tablet Take 1 tablet by mouth four times daily as needed. metFORMIN ER (GLUCOPHAGE XR) 500 mg 24 hr tablet Take 1 tablet by mouth daily with dinner. Increase to 2 tablets in 2 weeks with dinner if tolerating. metoprolol succinate ER (TOPROL XL) 25 mg 24 hr tablet Take 1 tablet by mouth once daily. rosuvastatin (CRESTOR) 10 mg tablet Take 1 tablet by mouth once daily. valsartan (DIOVAN) 160 mg tablet Take 1 tablet by mouth once daily. esomeprazole (NEXIUM) 40 mg capsule Take 1 capsule by mouth once daily. ONETOUCH DELICA PLUS LANCET 30 gauge twice daily. FEROSUL 325 mg (65 mg iron) tablet Take 1 tablet by mouth once daily. albuterol HFA (PROVENTIL HFA, VENTOLIN HFA) 90 mcg/actuation inhaler Inhale 2 Puffs as instructed every 6 hours as needed. alcohol swabs Use with blood glucose test 2 times daily. Insulin Dep? No Blood-Glucose Meter 1 Each as needed. glucose 4 gram chewable tablet Take 4 tablets by mouth as needed for low blood sugar. Lancets lancets Use with blood glucose test 2 times daily. Insulin Dep? No TRELEGY ELLIPTA 100-62.5-25 mcg inhalation powder Inhale 1 Puff as instructed once daily. blood sugar diagnostic test strip Use with blood glucose test 2 times daily, Insulin Dep? No montelukast (SINGULAIR) 10 mg tablet Take 1 tablet by mouth daily at bedtime. (Patient not taking: No sig reported) FREEZE DRIED ACIDOPHILUS cap Take 1 capsule by mouth twice daily. (Patient not taking: Reported on 05/22/2022) No current facility-administered medications for this visit. 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 Social History Tobacco Use Smoking status: Every Day Packs/day: 1.00 Types: Cigarettes Smokeless tobacco: Never Vaping Use Vaping Use: Never used Substance Use Topics Alcohol use: Not Currently Drug use: Not Currently PAST MEDICAL HISTORY Diagnosis Date Elevated cholesterol Essential hypertension Prediabetes IMMUNIZATION Immunization History Administered Date(s) Administered COVID-19 booster vaccine, age 12+ yr, bivalent (Fashionchick) 01/05/2022 COVID-19 original vaccine, age 12+ yr, monovalent (Fashionchick - PURPLE TOP) 06/28/2020 07/23/2020 Influenza Seasonal Inj Quad Age 6 Mo-64 Yrs Pres Free 01/05/2022 pneumococcal (PCV20) vaccine, 20 valent (PREVNAR 20) 01/05/2022 PAST SURGICAL HISTORY Procedure Laterality Date >=3 1989 2 C-Sections REPAIR ROTATOR CUFF,ACUTE 2020 I have confirmed and edited as necessary, the PFSH and ROS obtained by others. REVIEW OF SYSTEMS PAIN ASSESSMENT: Negative for pain, history of chronic pain, or current treatment for a chronic pain condition. GENERAL: No weight loss, malaise or fevers HEENT: Negative for frequent or significant headaches, No changes in hearing or vision, no nose bleeds or other nasal problems RESPIRATORY: Wheezing, Shortness of breath CARDIOVASCULAR: Hypertension GI: No nausea, vomiting, or diarrhea : No history of dysuria, frequency or incontinence CHIEF NURSING OFFICER: Negative for abnormal vaginal bleeding, abnormal vaginal discharge MUSCULOSKELETAL: back pain SKIN: Negative for lesions, rash, and itching HEMATOLOGY/LYMPHOLOGY: Negative for prolonged bleeding, bruising easily or swollen nodes ENDOCRINE: Negative for cold or heat intolerance, polyuria, polydipsia and goiter EXAM: BP 102/68 Ht 5' 4.5 (1.64m) Wt 216 lb 12.8 oz (98.3kg) BMI 36.65 kg/(m^2). Patient offered and declined body die maker today for exam. General: well groomed, well developed 62 year old female who appears stated age Neuro: alert and oriented x3, CN II-XII grossly intact Psych: pleasant mood, normal affect HEENT: normocephalic, atraumatic, PEERL, EOMI, neck supple without thyromegaly. No cervical lymphadenopathy Cardiovascular: pulse is regular rate and rhythm Chest: Normal work of breathing Breast: normal to inspection and palpation, left breast with 3 cm mobile mildly tender mass at 1 o'clock and 2 cm from nipple, no axillary lymphadenopathy. No nipple discharge. Abdomen: soft, nontender, nondistended no fluid wave. No pain with palpation. No masses palpated. No hepatosplenomegaly. Pelvic: normal female external genitalia- no vulvar skin lesions, normal urethra, skenes and bartholin glands. normal pale atrophic vaginal mucosa present, no abnormal discharge or bleeding visualized. Cervix without lesion. Uterus normal sized, anteverted and mobile. Good pelvic support. No inguinal lymphadenopathy. Extremities: skin warm and dry, no clubbing, cyanosis or edema. No scars, tattoos or piercings. ASSESSMENT/PLAN: 1. Well woman exam - ICD9: V72.31, ICD10: Z01.419 (primary diagnosis) - Completed pelvic and breast exam - Completed pap exam - check HPV - Set up for mammogram, yearly mammogram recommended- Due - Encouraged monthly BSE - Colon cancer screening reviewed and colonoscopy recommended- Up to date per patient - Follow up for annual exam in one year. - PMB precautions reviewed 2. Encounter for screening for malignant neoplasm of cervix - ICD9: V76.2, ICD10: Z12.4 - PAP FLUID CERVICAL SCREENING 3. Encounter for screening mammogram for malignant neoplasm of breast - ICD9: V76.12, ICD10: Z12.31 - AYANA DIAG BILAT 5. Mass of upper outer quadrant of left breast - ICD9: 611.72, ICD10: N63.21 - AYANA DIAGNOSTIC BILAT RTC 1 year annual Cara Lujan DO documented in this encounter [facility] 06-09-2022 History of Present illness Narrative Images from the original note were not included. Elsa Kerr MD [facility] [address] [place] [address], [facility] [address] [place] [address] Aurelio Bhakta is a 62 year old female with has a past medical history of Elevated cholesterol, Essential hypertension, and Prediabetes. of here today for a follow up on her weight loss efforts. She is currently taking the prescription weight loss medication Metformin Concerns: Stopped the glimepiride Started metformin, up to 2 tablets Loose stool- taking about 4 o'clock in evening Not eating after 7 pm Drinking more water She is checking blood sugars Fasting blood sugars 80s-low 100s This morning was 109 2 hours after eating blood sugar 80s-100s Down 6 lbs She is continuing with diet changes: yes -Main focus of dietary changes: drinking more water, more protein, watching carbs Off white bread. Protein shakes She is continuing with exercise changes: yes more than what she was -Exercise routine: walking more, more activity in general Goal weight: Review of weight loss medication side effects Any GI upset? yes Changes to blood pressure? no Visual Changes: no -- Patient reports suppression of her appetite and increase in satiety since starting the medication Diet: Breakfast protein shake Snacks Lunch Soup Tuna fruits Dinner Idamay beef Soup with potatoes snacks Satiety Satiation Cravings Sleep: Been good with melatonin Stress: Getting better Smoking/Alcohol - Exercise Freq: Barriers: Work-related activity: Sedentary ROS VITALS: BP 109/73 (BP Site: Left Arm, BP Position: Sitting, BP Cuff Size: Regular Adult) Pulse 77 Ht 163.8 cm (5' 4.5) Wt 97.9 kg (215 lb 12.8 oz) BMI 36.47 kg/m , Body mass index is 36.47 kg/m . Physical Exam Constitutional:. --no issues with communication HEENT: Normocephalic and atraumatic. Eyes: Conjunctiva appear normal. No scleral icterus. Hearing: Is grossly intact. Neck: Range of motion appears normal. Thyroid: appears symmetric and not enlarged. Pulmonary/Chest: Effort normal. Psychiatric: Mood, memory, affect and judgment normal. Neurological: alert and oriented to person, place, and time. Impression and Plan: ASSESSMENT/PLAN: 1. Class 2 severe obesity due to excess calories with serious comorbidity and body mass index (BMI) of 36.0 to 36.9 in adult ([facility]) - ICD9: 278.01, V85.36, ICD10: E66.01, Z68.36 (primary diagnosis) Weight decreasing - Behavioral and pharmacological intervention and - Continue current medications Continue Metformin Ozempic started by pcp--excellent, pt has taken 2 injections thus far. She reports she has 4 doses left. Follow up with me in one month and we will consider dose titration based on how she is doing. I discussed with the patient the overlap with both diabetes and weight management treatment-- and offered that I can manage medications for treatment of both. She agrees with plan. I will send a message to pcp Dr. Sam and Luzma Barillas CNP (endo) to update. Plan to repeat A1C in 1-2 months She does have appt with sleep med 2. Type 2 diabetes mellitus without complication, without long-term current use of insulin ([facility]) - ICD9: 250.00, ICD10: E11.9 Good control Blood sugars are excellent and stable off of the glimepiride See above Recommend follow up with pcp for annual optho referral/diabetic foot exam/urine albumin 3. Hyperlipidemia, unspecified hyperlipidemia type - ICD9: 272.4, ICD10: E78.5 Weight loss will be beneficial 4. Essential hypertension - ICD9: 401.9, ICD10: I10 Well controlled Weight loss will be beneficial She is doing well otherwise, continues lifestyle modification. She remains motivated to lose weight. Reviewed principles of energy metabolism, caloric intake and expenditure, and rationale for treatment program. Also reinforced need for reduced calorie, low fat diet and increased physical activity. Follow up one month Elsa Kerr MD I spent a total of 30 minutes on the date of the service which included preparing to see the patient, completing clinical documentation, obtaining and/or reviewing separately obtained history, performing a medically appropriate examination, counseling and educating the patient/family/caregiver, ordering medications, tests, or procedures,independently interpreting results (not separately reported), communicating results to the patient/family/caregiver and care coordination (not separately reported). Some elements were copied from my last note, which have been updated where appropriate, and all reflect current medical decision making from TODAY documented in this encounter [facility] 06-02-2022 Miscellaneous Notes Spoke with the patient. Her pain is the same. She is using the Voltaren gel 4 times a day. She is not taking ibuprofen because she is a allergic to Naproxen so she tries to stay away from NSAID's. Jagdeep Orozco, [employer] June 02, 2022 10:34 AM Is this pain different or significantly worse than her prior osteoarthritis pain? She can always try OTC NSAIDs like ibuprofen as needed is she has not before. How often during the day was she using the Voltaren gel? Thanks so much for your help, Marvel Sam DO Please route telephone encounter to the Clerical Pool ([facility] Clerical Pool) Patient called because she is continuing to have pain in her knee. She states the Voltaren gel only works for approximately 20 minutes then she is back in pain again. She would like to know if there is something else that can be done to help. Jagdeep Orozco, [employer] May 30, 2022 2:40 PM documented in this encounter [facility] 05-26-2022 Miscellaneous Notes NICK begun for Mounjaro. However, noted that the medication was discontinued today. Will alert pharmacy. documented in this encounter [facility] 05-23-2022 Instructions Luzma Barillas APRN.CNP - 05/23/2022 2:16 PM EST Increase metformin to 500mg x2 daily Take the mounjaro as ordered by your PCP. Work on exercising at least 30 minutes 5x a week Try and reduce carbohydrates in diet Follow up in 3 months documented in this encounter [facility] 05-23-2022 History of Present illness Narrative Jose Bueno is a 62 year old female who presents for diabetes management. Timeline: Diagnosed with type 2 diabetes 12/2021 Established care with endocrinology 05/2022 Complications: Nephropathy:none Neuropathy:none Diabetic retinopathy:none Current medications for diabetes: Metformin Ordered mounjaro by PCP but has not started yet Taking JAILENE/ARB:yes Taking Statin:yes Previous medications for diabetes: glimepiride Today's visit: Patient presents to establish care. She was referred here by her PCP Dr Bedoya. Initially had A1c of 6.6% 12/2022. Holly to 6.8% in 03/27. Initially started on glimepiride and had weight gain. She was just switched to metformin 500mg and will be increasing to 1000mg daily this evening. She also had Mounjaro ordered by PCP which she has not started yet. She is checking blood sugars a few times a week. Ranging from 99-160. ___ Typical day/occupation: retired Diet: Typically eats 2 meals a day, trying to avoid carbs and sugars Exercise/activity: none, plans to increase Hypertension and lipids managed by PCP Denies frequent periods of hypoglycemia. Patient verbalized understanding of the signs and symptoms of hypoglycemia and its treatment options. Important Diabetes Lab History: HBA1C: 12/2021 6.6% 03/2022 6.8% Thyroid Function Testin05/2021 TSH 1.44 Renal Function Testin05/2021 creatinine 0.85 GFR 73 Urine for Microalbumin: none on record Lipid Profile: 05/2021 TC 240 HDL 55 LDL 151 TG 200 Liver Profile: 05/2021 Alk Phos 67 AST 17 ALT 18 Important Diabetes Maintenance: Eye Exam: Patient educated to have ophthalmology visits at least once a year. 03/2022 went to [facility]. Foot Exam: 05/2022 Review of Systems Constitutional: Positive for malaise/fatigue. Negative for chills, diaphoresis, fever and weight loss. HENT: Negative for congestion, nosebleeds and sore throat. Eyes: Negative for blurred vision, pain and discharge. Respiratory: Positive for shortness of breath. Negative for cough, hemoptysis, sputum production and wheezing. Cardiovascular: Positive for leg swelling. Negative for chest pain, palpitations and orthopnea. Gastrointestinal: Positive for diarrhea and heartburn. Negative for abdominal pain, blood in stool, constipation, nausea and vomiting. Genitourinary: Positive for urgency. Negative for dysuria, frequency and hematuria. Musculoskeletal: Positive for back pain, joint pain, myalgias and neck pain. Skin: Negative for itching and rash. Neurological: Positive for headaches. Negative for dizziness, tingling and loss of consciousness. Endo/Heme/Allergies: Negative for polydipsia. Bruises/bleeds easily. Psychiatric/Behavioral: Positive for depression. Negative for suicidal ideas. The patient is nervous/anxious and has insomnia. PAST MEDICAL HISTORY Diagnosis Date Elevated cholesterol Essential hypertension Prediabetes PAST SURGICAL HISTORY Procedure Laterality Date >=3 1989 2 C-Sections REPAIR ROTATOR CUFF,ACUTE 2020 FAMILY HISTORY Problem Relation Age of Onset Hypertension Mother Hypertension Sister Diabetes Sister Macular Degen Sister Detached Retina Sister Cataract Sister Cataract Maternal Grandmother Glaucoma No Family History Social History Tobacco Use Smoking status: Every Day Packs/day: 1.00 Types: Cigarettes Smokeless tobacco: Never Vaping Use Vaping Use: Never used Substance Use Topics Alcohol use: Not Currently Drug use: Not Currently Current Meds melatonin 3 mg tablet Take 1 tablet by mouth at bedtime as needed for for insomnia. diclofenac (VOLTAREN ARTHRITIS PAIN) 1 % topical gel Apply 2 g to affected area four times daily. bumetanide (BUMEX) 1 mg tablet Take 1.5 tablets by mouth once daily. tirzepatide (MOUNJARO) 2.5 mg/0.5 mL pen injector Inject 2.5 mg subcutaneously one time a week. hydrOXYzine HCl (ATARAX) 25 mg tablet Take 1 tablet by mouth four times daily as needed. metFORMIN ER (GLUCOPHAGE XR) 500 mg 24 hr tablet Take 1 tablet by mouth daily with dinner. Increase to 2 tablets in 2 weeks with dinner if tolerating. metoprolol succinate ER (TOPROL XL) 25 mg 24 hr tablet Take 1 tablet by mouth once daily. rosuvastatin (CRESTOR) 10 mg tablet Take 1 tablet by mouth once daily. montelukast (SINGULAIR) 10 mg tablet Take 1 tablet by mouth daily at bedtime. (Patient not taking: Reported on 05/22/2022) valsartan (DIOVAN) 160 mg tablet Take 1 tablet by mouth once daily. esomeprazole (NEXIUM) 40 mg capsule Take 1 capsule by mouth once daily. (Patient not taking: Reported on 05/22/2022) ONETOUCH DELICA PLUS LANCET 30 gauge twice daily. FEROSUL 325 mg (65 mg iron) tablet Take 1 tablet by mouth once daily. albuterol HFA (PROVENTIL HFA, VENTOLIN HFA) 90 mcg/actuation inhaler Inhale 2 Puffs as instructed every 6 hours as needed. alcohol swabs Use with blood glucose test 2 times daily. Insulin Dep? No Blood-Glucose Meter 1 Each as needed. glucose 4 gram chewable tablet Take 4 tablets by mouth as needed for low blood sugar. Lancets lancets Use with blood glucose test 2 times daily. Insulin Dep? No TRELEGY ELLIPTA 100-62.5-25 mcg inhalation powder Inhale 1 Puff as instructed once daily. blood sugar diagnostic test strip Use with blood glucose test 2 times daily, Insulin Dep? No FREEZE DRIED ACIDOPHILUS cap Take 1 capsule by mouth twice daily. (Patient not taking: Reported on 05/22/2022) Objective BP 107/67 (BP Site: Right Arm, BP Position: Sitting, BP Cuff Size: Large Adult) Pulse 87 Ht 163.8 cm (5' 4.5) Wt 98.8 kg (217 lb 12.8 oz) SpO2 92% BMI 36.81 kg/m Physical Exam Constitutional: General: She is not in acute distress. HENT: Head: Normocephalic and atraumatic. Eyes: General: No scleral icterus. Conjunctiva/sclera: Conjunctivae normal. Pupils: Pupils are equal, round, and reactive to light. Cardiovascular: Rate and Rhythm: Normal rate and regular rhythm. Heart sounds: Normal heart sounds. No murmur heard. Pulmonary: Effort: Pulmonary effort is normal. No respiratory distress. Breath sounds: Normal breath sounds. No wheezing or rales. Chest: Chest wall: No tenderness. Abdominal: General: There is no distension. Palpations: Abdomen is soft. Tenderness: There is no abdominal tenderness. There is no rebound. Musculoskeletal: General: No tenderness. Cervical back: Neck supple. Lymphadenopathy: Cervical: No cervical adenopathy. Skin: General: Skin is warm and dry. Findings: No rash. Neurological: Mental Status: She is alert and oriented to person, place, and time. Cranial Nerves: No cranial nerve deficit. Gait: Gait is intact. Comments: Feet:Shoes and socks removed, Are you having foot pain no, No deformities, ulcers, calluses, and sensitive to 10 gm monofilament Psychiatric: Mood and Affect: Mood and affect normal. Cognition and Memory: Memory normal. Judgment: Judgment normal. Plan ASSESSMENT/PLAN: 1. Type 2 diabetes mellitus without complication, without long-term current use of insulin ([facility]) - ICD9: 250.00, ICD10: E11.9 (primary diagnosis) A1c not checked today. Last done 03/27 6.8%. At goal of <7%. This patient is new to me. Should do well on metformin and mounjaro that was prescribed by PCP both from a glycemic control standpoint and may help with weight loss. 2. Class 2 severe obesity due to excess calories with serious comorbidity and body mass index (BMI) of 36.0 to 36.9 in adult (HCC) - ICD9: 278.01, V85.36, ICD10: E66.01, Z68.36 Reduce carbs, increase exercise, weight loss as able. Plan of care: 1. HbA1C not checked today. 2. Medication changes: See below. Increase metformin to 500mg x2 daily Take the mounjaro as ordered by your PCP. 3. Total time in direct patient contact = 45 min. Greater than 50% of the time was spent in counseling and/or coordination of care. 4. Self-monitoring blood glucose log sheets were given to the patient. Patient instructed to fill them out and bring to the next visit. 5. Answered all questions. 6. Educated patient on therapeutic lifestyle changes. 7. Patient verbalized understanding of all the above instructions. Some elements may have been copied from previous notes but have been updated where appropriate and all reflect current medical decision making from today Follow up: Return in about 3 months (around 08/20/2022). Luzma Barillas CNP 05/23/2022 4:54 PM documented in this encounter [facility] 05-22-2022 History of Present illness Narrative Images from the original note were not included. [facility] Marvel Sam DO ASSESSMENT/PLAN: 1. Class 2 obesity due to excess calories without serious comorbidity with body mass index (BMI) of 35.0 to 35.9 in adult - ICD9: 278.00, V85.35, ICD10: E66.09, Z68.35 (primary diagnosis) - Weight stable: 222 lb today [from 220 lb 02/2022] - Behavioral intervention - Established with Obesity Medicine on 05/12/2022, started metformin 500mg ER daily [tolerating well] - Initiate low-dose Mounjaro [TIRZEPATIDE 2.5 MG/0.5 ML SUBCUTANEOUS PEN INJECTOR] 2. Controlled type 2 diabetes mellitus without complication, without long-term current use of insulin ([facility]) - ICD9: 250.00, ICD10: E11.9 - Well-controlled - Hemoglobin A1c 6.8% [03/27/2022] - Endocrinology is on board - With the initiation of metformin 500mg ER by Obesity Medicine, Amaryl was then reduced to 0.5mg daily [which can likely be weaned off soon] - TIRZEPATIDE 2.5 MG/0.5 ML SUBCUTANEOUS PEN INJECTOR 3. Insomnia, unspecified type - ICD9: 780.52, ICD10: G47.00 - MELATONIN 3 MG TABLET 4. Daytime sleepiness - ICD9: 780.54, ICD10: R40.0 - High STOP BANG score - POLYSOMNOGRAM (PSG) 5. Disorder of right rotator cuff - ICD9: 726.10, ICD10: M67.911 - Has a history of right rotator cuff repair, and is presently having issues with ROM - CONSULT TO PHYSICAL THERAPY (AG) 6. Primary osteoarthritis of both knees - ICD9: 715.16, ICD10: M17.0 - Refill DICLOFENAC 1 % TOPICAL GEL 7. Leg swelling - ICD9: 729.81, ICD10: M79.89 - Refill BUMETANIDE 1 MG TABLET [for a dose of 1.5mg daily] Marvel Sam DO PGY-2 SUBJECTIVE: Aurelio Bhakta is a 62 year old female here today for a 2-month follow-up. HPI Ms. Bhakta is a 62-year-old female with a past medical history significant for intellectual disability, COPD, tobacco dependence, peptic ulcer disease, anxiety, osteoarthritis, chronic bilateral lower extremity edema, essential hypertension, hyperlipidemia, iron deficiency anemia, GERD, and obesity. She was last seen in the office on 02/19/[address] Bedoya, and she presents today for a 2-month follow up regarding GI symptoms and weight loss. During her previous visit with Dr. Bedoya [02/19/2022], her abdominal distension was deemed likely due to central obesity. She was taken off of the sucralfate and famotidine, and a referral was placed to Obesity Medicine. The patient was able to establish with Dr. Kerr [Obesity Medicine] on 05/12/2022, and the patient was started on metformin [while also reducing her glimepiride]. Today in the office, the patient reports that she is doing well since starting the metformin. She denies any issues with diarrhea, nausea, or vomiting. And she feels that overall her stomach distension has gone down. Her weight today is 222 lb [from 220 lb in 02/2022]. PAST MEDICAL HISTORY Diagnosis Date Elevated cholesterol Essential hypertension Prediabetes History reviewed. No pertinent surgical history. Social History Tobacco Use Smoking status: Every Day Packs/day: 1.00 Types: Cigarettes Smokeless tobacco: Never Vaping Use Vaping Use: Never used Substance Use Topics Alcohol use: Not Currently Drug use: Not Currently FAMILY HISTORY Problem Relation Age of Onset Hypertension Mother Hypertension Sister Diabetes Sister Macular Degen Sister Detached Retina Sister Cataract Sister Cataract Maternal Grandmother Glaucoma No Family History There are no active hospital problems to display for this patient. PAIN EVALUATION 05/22/2022 1318 Pain Level: 7 Pain Location: Knee-Right Description: Aching;Throbbing Duration Units: Months Frequency: Continuous Intervention/Comfort measure: Reposition;Cold ALLERGIES Allergen Reactions Hydrocodone Vomiting Naproxen Anaphylaxis Sulfa (Sulfonamide * Other: See Comments, Rash Tramadol Hives, Rash Trazodone Hives, Rash Medication List prior to visit Current Outpatient Medications on File Prior to Visit Medication Sig hydrOXYzine HCl (ATARAX) 25 mg tablet Take 1 tablet by mouth four times daily as needed. metFORMIN ER (GLUCOPHAGE XR) 500 mg 24 hr tablet Take 1 tablet by mouth daily with dinner. Increase to 2 tablets in 2 weeks with dinner if tolerating. metoprolol succinate ER (TOPROL XL) 25 mg 24 hr tablet Take 1 tablet by mouth once daily. rosuvastatin (CRESTOR) 10 mg tablet Take 1 tablet by mouth once daily. valsartan (DIOVAN) 160 mg tablet Take 1 tablet by mouth once daily. ONETOUCH DELICA PLUS LANCET 30 gauge twice daily. FEROSUL 325 mg (65 mg iron) tablet Take 1 tablet by mouth once daily. albuterol HFA (PROVENTIL HFA, VENTOLIN HFA) 90 mcg/actuation inhaler Inhale 2 Puffs as instructed every 6 hours as needed. alcohol swabs Use with blood glucose test 2 times daily. Insulin Dep? No Blood-Glucose Meter 1 Each as needed. glucose 4 gram chewable tablet Take 4 tablets by mouth as needed for low blood sugar. Lancets lancets Use with blood glucose test 2 times daily. Insulin Dep? No TRELEGY ELLIPTA 100-62.5-25 mcg inhalation powder Inhale 1 Puff as instructed once daily. blood sugar diagnostic test strip Use with blood glucose test 2 times daily, Insulin Dep? No montelukast (SINGULAIR) 10 mg tablet Take 1 tablet by mouth daily at bedtime. (Patient not taking: Reported on 05/22/2022) esomeprazole (NEXIUM) 40 mg capsule Take 1 capsule by mouth once daily. (Patient not taking: Reported on 05/22/2022) FREEZE DRIED ACIDOPHILUS cap Take 1 capsule by mouth twice daily. (Patient not taking: Reported on 05/22/2022) No current facility-administered medications on file prior to visit. I have confirmed and edited as necessary the chief complaint, medications, past medical, family and social histories. Review of Systems Constitutional: Positive for fatigue. Negative for activity change, appetite change, chills, diaphoresis, fever and unexpected weight change. HENT: Negative for congestion, sneezing and sore throat. Eyes: Negative for visual disturbance. Respiratory: Negative for cough, shortness of breath and wheezing. Cardiovascular: Positive for leg swelling (chronic). Negative for chest pain and palpitations. Gastrointestinal: Positive for abdominal distention (improving). Negative for abdominal pain, constipation, diarrhea, nausea and vomiting. Endocrine: Negative for polydipsia, polyphagia and polyuria. Genitourinary: Negative for difficulty urinating, dysuria and flank pain. Musculoskeletal: Positive for arthralgias. Negative for myalgias, neck pain and neck stiffness. Skin: Negative for rash and wound. Neurological: Negative for dizziness, light-headedness and headaches. Psychiatric/Behavioral: Negative for agitation and confusion. The patient is not nervous/anxious. OBJECTIVE: BP 131/83 Pulse 86 Temp 36.6 C (97.8 F) Resp 18 Ht 163.8 cm (5' 4.5) Wt 100.7 kg (222 lb) SpO2 96% BMI 37.52 kg/m Body mass index is 37.52 kg/m . Physical Exam Constitutional: General: She is not in acute distress. Appearance: She is obese. She is not ill-appearing or diaphoretic. HENT: Head: Normocephalic and atraumatic. Nose: Nose normal. Mouth/Throat: Mouth: Mucous membranes are moist. Pharynx: Oropharynx is clear. Eyes: Extraocular Movements: Extraocular movements intact. Conjunctiva/sclera: Conjunctivae normal. Pupils: Pupils are equal, round, and reactive to light. Cardiovascular: Rate and Rhythm: Normal rate and regular rhythm. Pulses: Normal pulses. Heart sounds: Normal heart sounds. Pulmonary: Effort: Pulmonary effort is normal. Breath sounds: Normal breath sounds. Abdominal: General: Bowel sounds are normal. There is distension (mild). Palpations: Abdomen is soft. There is no mass. Tenderness: There is no abdominal tenderness. There is no guarding or rebound. Hernia: No hernia is present. Musculoskeletal: General: No swelling. Cervical back: Normal range of motion and neck supple. No rigidity or tenderness. Comments: Reduced ROM [particularly in abduction] of right shoulder Lymphadenopathy: Cervical: No cervical adenopathy. Skin: General: Skin is warm and dry. Capillary Refill: Capillary refill takes less than 2 seconds. Neurological: General: No focal deficit present. Mental Status: She is alert and oriented to person, place, and time. BP 131/83 Pulse 86 Temp 97.8 Resp 18 Ht 5' 4.5 (1.64m) Wt 222 lb (100.7kg) SpO2 96% BMI 37.53 kg/(m^2). Last BP 05/22/22 : 131/83 05/12/22 : 112/66 02/19/22 : 101/60 Last Wt 05/22/22 : 100.7 kg (222 lb) 05/12/22 : 100.6 kg (221 lb 12.8 oz) 02/19/22 : 99.8 kg (220 lb) Visit Diagnoses (E66.09, Z68.35) Class 2 obesity due to excess calories without serious comorbidity with body mass index (BMI) of 35.0 to 35.9 in adult (primary encounter diagnosis) (E11.9) Controlled type 2 diabetes mellitus without complication, without long-term current use of insulin ([facility]) (G47.00) Insomnia, unspecified type (R40.0) Daytime sleepiness (M67.911) Disorder of right rotator cuff (M17.0) Primary osteoarthritis of both knees (M79.89) Leg swelling Medications Discontinued During This Encounter Medication Reason glimepiride (AMARYL) 1 mg tablet Course of therapy completed bumetanide (BUMEX) 1 mg tablet Discussed the above with the patient and my preceptor using shared decision-making. The patient is in agreement with the diagnostic and treatment plans. Results for orders placed or performed in visit on 04/02/22 HGB A1C Result Value Ref Range HGBA1C 6.8 (A) 4.0 - 6.0 % Return in about 2 months (around 07/20/2022) for Follow up on weight loss. Marvel Sma DO, signed on May 23, 2022 12:43 PM documented in this encounter [facility] 05-19-2022 Miscellaneous Notes Pharmacy faxed requesting the following refill Refill(s) Requested: Requested Prescriptions Pending Prescriptions Disp Refills hydrOXYzine HCl (ATARAX) 25 mg tablet 120 tablet 0 Sig: Take 1 tablet by mouth four times daily as needed. ALLERGIES Allergen Reactions Hydrocodone Vomiting Naproxen Anaphylaxis Sulfa (Sulfonamide * Other: See Comments, Rash Tramadol Hives, Rash Trazodone Hives, Rash (home) [phone] (cell) Last Office Visit Date: 02/19/2022 Last Distance Health Visit: Visit date not found Future Appointment: 05/22/2022 The patients preferred pharmacy has been captured for this encounter? yes Request is for script(s) to be escript to pharmacy. Racheal Zaldivar LPN documented in this encounter [facility] 05-12-2022 Miscellaneous Notes Pharmacy faxed requesting the following refill Refill(s) Requested: Requested Prescriptions Pending Prescriptions Disp Refills bumetanide (BUMEX) 1 mg tablet 45 tablet 0 Sig: Take 1.5 tablets by mouth once daily. ALLERGIES Allergen Reactions Hydrocodone Vomiting Naproxen Anaphylaxis Sulfa (Sulfonamide * Other: See Comments, Rash Tramadol Hives, Rash Trazodone Hives, Rash (home) [phone] (cell) Last Office Visit Date: 02/19/2022 Last Distance Health Visit: Visit date not found Future Appointment: 05/22/2022 The patients preferred pharmacy has been captured for this encounter? yes Request is for script(s) to be escript to pharmacy. Amada Archer documented in this encounter [facility] 05-12-2022 Instructions Elsa Kerr MD - 05/12/2022 9:43 AM EST My opinion 3 hour Rule: -last meal /snack 3 hours before sleeping ,but mostly try to be done by 7 pm --eat Rich Breakfast, high in protein hard boiled eggs/protein drinks - At least 3 hours break between each meals ,except water --sleep 7 hours at night , that means going to bed early -- drink only water ( no soda or juices) /no Alcohol consumption --cut down on coffee consumption if consuming high amounts Website :You can visit to web site for low carb recipe information as well as visual guide to low carb food: Https://www.dietdoctor.[employer]/ ( visual guide for low carb diet) Limit carb consumption to 80- 100 grams per day. Goals: formal exercise 2-5 x/week as tolerated, start with 10 mins/day to goal of 30 minutes ( -- for exercise, you should shoot for a goal of >150 min per week initially. Depending at what level you are starting, that may seem like an unachievable task. However, the best plan is to just begin to walk or bike or do another activity that you like and track your steps per day. You do not need to pay attention to the time, but you do need to try to increase your exercise every 3 weeks. Other strength exercises, using light weights or training bands may also be useful, especially when combined with regular aerobic exercise. Studies have shown that >200min per week is best to maintain weight loss, so that would be the overall end goal.) Have 3 meals a day-protein source with each meal (structured meal planning) Food journal daily and bring it to all appointments If you want you can REPLACE one of your meals with a liquid meal or frozen meal. This is easy to start and may help with your weight. 1. Liquid meal replacement (Boost, Ensure) 2. Frozen meal (Healthy Choice, Lean Cuisine - sodium under 650mg, can always add veggies to the meal) 3. Powdered protein (Premier Protein) or meal replacement (I like a plant based meal replacement called [employer] Nutrition - can mix w cecilioz berries and almond milk) -- IN GENERAL - suggestions based on important of our sleep cycle called circadian rhythm and its influence on our gut microbiota and overall health tragetory 1) EAT MOST OF YOUR FOOD IN AM AND EARLY PM 2) NO EATING AT NIGHT 3) EXERCISE DURING DAY 4) BE CONSISTENT WITH MEAL STRUCTURE ie Meals at same time during the day. -- keep record of your food intake - it is easier for us to understand your eating habits and food preferences, looking into the amounts of protein, carbs, and fat in your diet. Good examples of apps to track calories are [employer], LOSE IT. Some patient have found FOODUCATE to help with decisions around food, however choose apps that best suits you. METFORMIN Dosing -- Begin Metformin ER 500 mg with dinner daily x 1 week. If tolerating, you can increase to 2 tablets with dinner daily. Taking the medication with food will help. -- if you experience any GI upset (Nausea, diarrhea, bloating, gas) you can go back to 1 tablet or hold the medication until it resolves. Once you are tolerating the medication you can try increasing it again. -- we can discuss increasing the dose further at your follow up visit. -- Metformin can interfere with the absorption of B12 in your food, please add a B12 supplement and I suggest having it checked every 1-2 years Using Metformin for weight loss: Metformin helps to lower blood glucose levels by reducing the amount of glucose produced and released by the liver, and by increasing insulin sensitivity. It has now been proven to prevent or delay diabetes. Metformin and Type 2 Diabetes Prevention Diabetes Spectrum (diabetesjournals.org) Large cohort studies have shown weight loss benefits associated with metformin therapy. Emerging evidence suggests that metformin-associated weight loss is due to modulation of hypothalamic appetite-regulatory centers, alteration in the gut microbiome, and reversal of consequences of aging. Metformin is also being explored in the management of obesity s sequelae such as hepatic steatosis, obstructive sleep apnea and osteoarthritis. Effectiveness of metformin on weight loss in non-diabetic individuals with obesity - PubMed (nih.gov) Is metformin a wonder drug? - [facility] Common side effects of this medication include nausea, changes in bowel habits, abdominal discomfort, and flatulence. Taking the medication with food will help. Side effects also typically get better with time. Rarely, a severe side effect called lactic acidosis can occur. If you experience malaise, muscle aches, difficulty breathing, or severe abdominal pain, please seek immediate medical attention. When to Take Extended-Release Metformin Metformin HCL is metabolized slowly, over 24 hours, which helps reduce GI side effects. Metformin extended-release is often a good option for people who experience adverse GI symptoms with standard metformin. Metformin HCL should be taken at night, with food. Amelie Morrell MD, clinical director of adult diabetes at [facility], explains why timing metformin HCL with the evening meal is so important. In normal physiology, a person's liver often makes glucose overnight, she says. So, it's not uncommon for a person to go to bed with a good blood glucose level and wake up with a higher one because their liver has been releasing sugar [all night]. Metformin turns off or slows down this process, so it can be more effective at night in treating fasting high blood sugar. [email or web address]-[email or web address]-my-[email or web address]-[email or web address]-night/ Metformin: Patient drug information Warning Rarely, metformin may cause too much lactic acid in the blood (lactic acidosis). The risk is higher in people who have kidney problems, liver problems, heart failure, use alcohol, or take other drugs like topiramate. The risk is also higher in people who are 65 or older and in people who are having surgery, an exam or test with contrast, or other procedures. If lactic acidosis happens, it can lead to other health problems and can be deadly. Kidney tests may be done while taking this drug. Do not take this drug if you have a very bad infection, low oxygen, or a lot of fluid loss (dehydration). Call your doctor right away if you have signs of too much lactic acid in the blood (lactic acidosis) like fast breathing, fast or slow heartbeat, a heartbeat that does not feel normal, very bad upset stomach or throwing up, feeling very sleepy, shortness of breath, feeling very tired or weak, very bad dizziness, feeling cold, or muscle pain or cramps. What is this drug used for? It is used to lower blood sugar in patients with high blood sugar (diabetes), treatment for PCOS, What do I need to tell my doctor BEFORE I take this drug? If you are allergic to this drug; any part of this drug; or any other drugs, foods, or substances. Tell your doctor about the allergy and what signs you had. If you have any of these health problems: Acidic blood problem, kidney disease, or liver disease. If you have had a recent heart attack or stroke. If you are not able to eat or drink like normal, including before certain procedures or surgery. If you are having an exam or test with contrast or have had one within the past 48 hours, talk with your doctor. This is not a list of all drugs or health problems that interact with this drug. Tell your doctor and pharmacist about all of your drugs (prescription or OTC, natural products, vitamins) and health problems. You must check to make sure that it is safe for you to take this drug with all of your drugs and health problems. Do not start, stop, or change the dose of any drug without checking with your doctor. What are some things I need to know or do while I take this drug? All products: Tell all of your health care providers that you take this drug. This includes your doctors, nurses, pharmacists, and dentists. Talk with your doctor before you drink alcohol. Do not drive if your blood sugar has been low. There is a greater chance of you having a crash. Check your blood sugar as you have been told by your doctor. Have blood work checked as you have been told by the doctor. Talk with the doctor. It may be harder to control blood sugar during times of stress such as fever, infection, injury, or surgery. A change in physical activity, exercise, or diet may also affect blood sugar. Follow the diet and workout plan that your doctor told you about. If diarrhea happens or you are throwing up, call your doctor. You will need to drink more fluids to keep from losing too much fluid. Be careful in hot weather or while being active. Drink lots of fluids to stop fluid loss. Long-term treatment with metformin may lead to low vitamin B-12 levels. If you have ever had low vitamin B-12 levels, talk with your doctor. If you are 65 or older, use this drug with care. You could have more side effects. There is a chance of in people of childbearing age who have not been ovulating. If you want to avoid , use control while taking this drug. Tell your doctor if you are , plan on getting , or are breast-feeding. You will need to talk about the benefits and risks to you and the baby. Extended-release tablets: You may see something that looks like the tablet in your stool. This is normal and not a cause for concern. If you have questions, talk with your doctor. What are some side effects that I need to call my doctor about right away? WARNING/CAUTION: Even though it may be rare, some people may have very bad and sometimes deadly side effects when taking a drug. Tell your doctor or get medical help right away if you have any of the following signs or symptoms that may be related to a very bad side effect: Signs of an allergic reaction, like rash; hives; itching; red, swollen, blistered, or peeling skin with or without fever; wheezing; tightness in the chest or throat; trouble breathing, swallowing, or talking; unusual hoarseness; or swelling of the mouth, face, lips, tongue, or throat. It is common to have stomach problems like upset stomach, throwing up, or diarrhea when you start taking this drug. If you have stomach problems later during treatment, call your doctor right away. This may be a sign of an acid health problem in the blood (lactic acidosis). Low blood sugar can happen. The chance may be raised when this drug is used with other drugs for diabetes. Signs may be dizziness, headache, feeling sleepy or weak, shaking, fast heartbeat, confusion, hunger, or sweating. Call your doctor right away if you have any of these signs. Follow what you have been told to do for low blood sugar. This may include taking glucose tablets, liquid glucose, or some fruit juices. What are some other side effects of this drug? All drugs may cause side effects. However, many people have no side effects or only have minor side effects. Call your doctor or get medical help if any of these side effects or any other side effects bother you or do not go away: Stomach pain or heartburn. Gas. Diarrhea, upset stomach, or throwing up. Feeling tired or weak. Headache. These are not all of the side effects that may occur. If you have questions about side effects, call your doctor. Call your doctor for medical advice about side effects. You may report side effects to your national health agency. How is this drug best taken? Use this drug as ordered by your doctor. Read all information given to you. Follow all instructions closely. All products: Take with meals. Keep taking this drug as you have been told by your doctor or other health care provider, even if you feel well. Extended-release tablets: Take with the evening meal if taking once daily. Swallow whole. Do not chew, break, or crush. If you have trouble swallowing, talk with your doctor. documented in this encounter [facility] 05-12-2022 History of Present illness Narrative Images from the original note were not included. Elsa Kerr MD [facility] [address] [place] [address], [address] [facility] - Fourth Floor [place] [id number] Patient presents with: New Patient Evaluation Cc: I'm overweight and keep gaining weight SUBJECTIVE/HPI: Aurelio Bhakta is a 62 year old female with PMX of class II obesity who presents on May 12, 2022 for medical evaluation of Non-Surgical Metabolic Weight Management . Reports was just diagnosed with diabetes a few months ago. Been on glimepiride for a couple months now. 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 She feels like food will just sit there. Age at onset - [age] year. Before this was about 140 lb. Rate of weight gain is described as gradual over the last year. Moved to [place] from [place] in July. Reports she was much more active in [place]. Family history positive for obesity in the patient s son. She considers ideal weight to be 140. Weight at graduation from high school 110 Previous treatments include Has not really tried anything Lifestyle Factors: Diet: Do you think that you have a healthy diet? Yes. Overall characterization of present diet:Structured and evening snacking. How have you tried to lose weight in the past? No. What worked? . Routine Breakfast: Sausage egg and cheese croissant Cappuccino no sugar Snacks: Lunch: Usually skips lunch Snack: Dinner: by 3-4 o'clock Varies Protein/meat Mashed potatoes and vegetable Snack: Does not usually eat out Soda 1 mountain dew/day Bedtime Sleeps: 8-9 o'clock Wake up: 6 am No alcohol +smoking less than a pack a day Never tried anything to quit in past Pt has not been on metformin in the past [facility] water Blood sugar 112- 133 fasting Exercise: Do you exercise ? Trying to Are you able to walk up a flight of stairs or a small hill? Yes If no, why not? . Patient's functional capacity is The composite complication rate of , unstable angina, [place], DVT, PE, renal failure, and stroke occurred in 16.6% of severely obese patients whose peak oxygen consumption was < 15.8 mL/kg/min but in only 2.8% of those whose cardiorespiratory fitness was >/= 15.8 mL/kg/min. By convention, 1 MET is considered equivalent to the consumption of 3.5 ml O2 kg-1 min-1 (or 3.5 ml of oxygen per kilogram of body mass per minute) and is roughly equivalent to the expenditure of 1 kcal per kilogram of body weight per hour. Sleep: Duration: > 6 hours:Yes Sleep apnea screen: S-snore:Yes. T-feel tired, fatigued, daytime sleepiness: sometimes . O-observed patient stop breathing during sleep:Yes. P-does patient have, or being treated for high blood pressure:Yes. B-is BMI >35:Yes. A-Age >50: Yes N-Neck circumference >15.75 inches:Yes 16.5 in G-Male gender:No Stop Bang score: 6-7 If patient has been diagnosed with sleep apnea, has there been significant weight gain and are there any SDB symptoms on the current CPAP/BIPAP pressure setting: Chest pain, SOB, or HOLM: Yes short of breath with activity Stress test: no History of eating disorders: negative Associated medical conditions: diabetes mellitus , hypertension, hyperlipidemia, and pulmonary disease Associated medications: see med list Cardiovascular risk factors: hyperlipidemia, diabetes mellitus, obesity, sedentary life style, and hypertension Current Outpatient Medications on File Prior to Visit Medication Sig metoprolol succinate ER (TOPROL XL) 25 mg 24 hr tablet Take 1 tablet by mouth once daily. rosuvastatin (CRESTOR) 10 mg tablet Take 1 tablet by mouth once daily. montelukast (SINGULAIR) 10 mg tablet Take 1 tablet by mouth daily at bedtime. valsartan (DIOVAN) 160 mg tablet Take 1 tablet by mouth once daily. esomeprazole (NEXIUM) 40 mg capsule Take 1 capsule by mouth once daily. bumetanide (BUMEX) 1 mg tablet Take 1.5 tablets by mouth once daily. hydrOXYzine HCl (ATARAX) 25 mg tablet Take 1 tablet by mouth four times daily as needed. glimepiride (AMARYL) 1 mg tablet Take 1 tablet by mouth once daily. ONETOUCH DELICA PLUS LANCET 30 gauge twice daily. FEROSUL 325 mg (65 mg iron) tablet Take 1 tablet by mouth once daily. albuterol HFA (PROVENTIL HFA, VENTOLIN HFA) 90 mcg/actuation inhaler Inhale 2 Puffs as instructed every 6 hours as needed. alcohol swabs Use with blood glucose test 2 times daily. Insulin Dep? No Blood-Glucose Meter 1 Each as needed. glucose 4 gram chewable tablet Take 4 tablets by mouth as needed for low blood sugar. Lancets lancets Use with blood glucose test 2 times daily. Insulin Dep? No TRELEGY ELLIPTA 100-62.5-25 mcg inhalation powder Inhale 1 Puff as instructed once daily. blood sugar diagnostic test strip Use with blood glucose test 2 times daily, Insulin Dep? No FREEZE DRIED ACIDOPHILUS cap Take 1 capsule by mouth twice daily. No current facility-administered medications on file prior to visit. ALLERGIES Allergen Reactions Hydrocodone Vomiting Naproxen Anaphylaxis Sulfa (Sulfonamide * Other: See Comments, Rash Tramadol Hives, Rash Trazodone Hives, Rash PAST MEDICAL HISTORY Diagnosis Date Elevated cholesterol Essential hypertension Prediabetes History reviewed. No pertinent surgical history. Any problems with anesthesia with the above surgeries: FAMILY HISTORY Problem Relation Age of Onset Hypertension Mother Hypertension Sister Diabetes Sister Macular Degen Sister Detached Retina Sister Cataract Sister Cataract Maternal Grandmother Glaucoma No Family History Social History Tobacco Use Smoking status: Every Day Packs/day: 1.00 Types: Cigarettes Smokeless tobacco: Never Vaping Use Vaping Use: Never used Substance Use Topics Alcohol use: Not Currently Drug use: Not Currently ROS OBJECTIVE: BP 112/66 Pulse 93 Ht 163.8 cm (5' 4.5) Wt 100.6 kg (221 lb 12.8 oz) BMI 37.48 kg/m BMI = Body mass index is 37.48 kg/m . Waist circumference 50 in Neck circumference 16.5 in Physical Exam Constitutional:. --no issues with communication during visit and demonstrates understanding via appropriate interaction, verbalizing understanding and she consented for this visit visit encounter HEENT: Normocephalic and atraumatic. Eyes: Conjunctiva appear normal. No scleral icterus. Hearing: Is grossly intact. Neck: Range of motion appears normal. Thyroid: appears symmetric and not enlarged. Pulmonary/Chest: Effort normal. Psychiatric: Mood, memory, affect and judgment normal. Neurological: alert and oriented to person, place, and time. Reviewed principles of energy metabolism, caloric intake and expenditure, and rationale for treatment program. Also reinforced need for modified diet as discussed and increased physical activity. ASSESSMENT/PLAN: 1. Obesity, Class II, BMI 35-39.9 - ICD9: 278.00, ICD10: E66.9 (primary diagnosis) Pt new to me Weight increasing based on review of chart We discussed dietary modifications at length We also briefly discussed pathophysiology of diabetes/glucose and insulin regulation In addition to dietary and lifestyle modifications, we are going to start Metformin, discussed in addition to improving insulin resistance, can have some weight loss benefit R/b/sa discussed Start at 500 mg ER and see how she tolerating given some underlying gi issues, - Behavioral and pharmacological intervention 2. Type 2 diabetes mellitus without complication, without long-term current use of insulin (HCC) - ICD9: 250.00, ICD10: E11.9 worsening control A1C increased from 6.6 to 6.8 despite treatment with glimepiride Reduce glimepiride to 1/2 tablet in one week after starting Metformin Monitor blood sugars If fasting blood sugars remain stable below 140s, and she is tolerating metformin then stop glimepiride after 2 weeks Increase metformin to 2 tablets po qhs in 2 weeks if tolerating May consider glp-1 agonist. Will revisit once glimepiride is weaned - Decrease glimepiride (Amaryl) - Add metformin (Glucophage) 3. Snoring - ICD9: 786.09, ICD10: R06.83 High risk for sleep apnea, rec sleep study Discussed importance of sleep apnea and how this affects both CV and metabolic health Pt agreeable to referral to sleep medicine - CONSULT TO SLEEP MEDICINE - ADULT 4. Hyperlipidemia, unspecified hyperlipidemia type - ICD9: 272.4, ICD10: E78.5 On statin being followed by pcp Last lipid panel suboptimal, weight loss and dietary modifications may help If not, recommmend dose adjustment based on CV risk 5. Essential hypertension - ICD9: 401.9, ICD10: I10 - good control - Continue current medication(s) - Recommended regular aerobic exercise. Follow up one month I spent a total of 60 minutes on the date of the service which included preparing to see the patient, completing clinical documentation, obtaining and/or reviewing separately obtained history, performing a medically appropriate examination, counseling and educating the patient/family/caregiver, ordering medications, tests, or procedures,independently interpreting results (not separately reported), communicating results to the patient/family/caregiver and care coordination (not separately reported). Elsa Kerr MD documented in this encounter [facility] 05-12-2022 Nurse Note Neck 16.5 in Waist 50 in Kailey Emerson Ma documented in this encounter [facility] 05-08-2022 Miscellaneous Notes New RX's fro new mail order pharmacy. (Some just recently sent were to go to mail order) Patient requesting the following refill Requested Prescriptions Pending Prescriptions Disp Refills bumetanide (BUMEX) 1 mg tablet 45 tablet 0 Sig: Take 1.5 tablets by mouth once daily. hydrOXYzine HCl (ATARAX) 25 mg tablet 120 tablet 0 Sig: Take 1 tablet by mouth four times daily as needed. metoprolol succinate ER (TOPROL XL) 25 mg 24 hr tablet 90 tablet 0 Sig: Take 1 tablet by mouth once daily. rosuvastatin (CRESTOR) 10 mg tablet 90 tablet 0 Sig: Take 1 tablet by mouth once daily. montelukast (SINGULAIR) 10 mg tablet 90 tablet 0 Sig: Take 1 tablet by mouth daily at bedtime. valsartan (DIOVAN) 160 mg tablet 90 tablet 0 Sig: Take 1 tablet by mouth once daily. esomeprazole (NEXIUM) 40 mg capsule 90 capsule 0 Sig: Take 1 capsule by mouth once daily. Allergies: Hydrocodone, Naproxen, Sulfa (Sulfonamide Antibiotics), Tramadol, and Trazodone (home) [phone] (cell) Patient last appointment: 02/19/2022 Next Appointment: 05/22/2022 The patients preferred pharmacy has been captured for this encounter? yes Request is for script(s) to be escript to mail order [facility]. Almas Santizo LPN documented in this encounter [facility] 04-28-2022 Miscellaneous Notes Pharmacy faxed requesting the following refill Refill(s) Requested: Requested Prescriptions Pending Prescriptions Disp Refills hydrOXYzine HCl (ATARAX) 25 mg tablet 120 tablet 0 Sig: Take 1 tablet by mouth four times daily as needed. ALLERGIES Allergen Reactions Hydrocodone Vomiting Naproxen Anaphylaxis Sulfa (Sulfonamide * Other: See Comments, Rash Tramadol Hives, Rash Trazodone Hives, Rash (home) [phone] (cell) Last Office Visit Date: 02/19/2022 Last [facility] Visit: Visit date not found Future Appointment: 05/22/2022 The patients preferred pharmacy has been captured for this encounter? yes Request is for script(s) to be faxed to pharmacy. Olesya Mclain LPN documented in this encounter [facility] 04-28-2022 Miscellaneous Notes Pharmacy faxed requesting the following refill Refill(s) Requested: Requested Prescriptions Pending Prescriptions Disp Refills bumetanide (BUMEX) 1 mg tablet 45 tablet 0 Sig: Take 1.5 tablets by mouth once daily. ALLERGIES Allergen Reactions Hydrocodone Vomiting Naproxen Anaphylaxis Sulfa (Sulfonamide * Other: See Comments, Rash Tramadol Hives, Rash Trazodone Hives, Rash (home) [phone] (cell) Last Office Visit Date: 02/19/2022 Last [facility] Visit: Visit date not found Future Appointment: 05/22/2022 The patients preferred pharmacy has been captured for this encounter? yes Request is for script(s) to be faxed to pharmacy. Olesya Mclain LPN documented in this encounter [facility] 04-09-2022 Miscellaneous Notes Pharmacy faxed requesting the following refill Refill(s) Requested: Requested Prescriptions Pending Prescriptions Disp Refills bumetanide (BUMEX) 1 mg tablet 45 tablet 0 Sig: Take 1.5 tablets by mouth once daily. glimepiride (AMARYL) 1 mg tablet 90 tablet 0 Sig: Take 1 tablet by mouth once daily. hydrOXYzine HCl (ATARAX) 25 mg tablet 120 tablet 0 Sig: Take 1 tablet by mouth four times daily as needed. ALLERGIES Allergen Reactions Hydrocodone Vomiting Naproxen Anaphylaxis Sulfa (Sulfonamide * Other: See Comments, Rash Tramadol Hives, Rash Trazodone Hives, Rash (home) [phone] (cell) Last Office Visit Date: 02/19/2022 Last [facility] Visit: Visit date not found Future Appointment: 05/22/2022 The patients preferred pharmacy has been captured for this encounter? yes Request is for script(s) to be escript to pharmacy. Elizabeth Collier LPN documented in this encounter [facility] 04-02-2022 Miscellaneous Notes Patient aware of the results and recommendation noted. Almas Santizo LPN 04/02/22 4:22 PM Please inform the patient of the following imaging results: Her hemoglobin A1c was 6.8% [from 6.6% in 12/2021]. This is overall stable, and I would advise that she continues her current diabetes medication regimen for now. Thanks so much, Marvel Sam DO documented in this encounter [facility] 04-02-2022 Miscellaneous Notes Please route telephone encounter to the Clerical Pool ([facility] Clerical Pool) documented in this encounter [facility] 03-26-2022 Miscellaneous Notes I have placed orders for her to have her hemoglobin A1c checked, routine HIV and hepatitis C screening [we offer a one-time test to all patients], and a urine test to monitor the protein in her urine in the setting of her diabetes. These can be done anytime before she sees me! Thanks so much, Marvel Sam DO Patient asks if there are labs she should get done before her appt with you on 05/22/22. Marilyn Duran, Floor Service Worker [place] March 25, 2022 4:16 PM documented in this encounter [facility] 2022 Miscellaneous Notes Patient is scheduled with Dr. Kerr on 05/12/2022. Confirmation [id number]. documented in this encounter [facility] 02-21-2022 Miscellaneous Notes PCP ref into program 1st call spoke to PT wasn't sure which program would want to enroll into. PT did however, explain that she doesn't want to take more medication. PT advised would callback after speak with her mom. documented in this encounter [facility] 02-20-2022 Miscellaneous Notes Placed referral through the [facility] portal. Confirmation [id number]. documented in this encounter [facility] 02-05-2022 Miscellaneous Notes Patient called requesting the following refill Refill(s) Requested: Requested Prescriptions Pending Prescriptions Disp Refills albuterol HFA (PROVENTIL HFA, VENTOLIN HFA) 90 mcg/actuation inhaler Sig: Inhale 2 Puffs as instructed every 6 hours as needed. alcohol swabs 200 Each 5 Sig: Use with blood glucose test 2 times daily. Insulin Dep? No Blood-Glucose Meter 1 Each 0 Si Each as needed. docusate sodium (COLACE) 100 mg capsule Sig: Take 1 capsule by mouth q 24 HR. glimepiride (AMARYL) 1 mg tablet 90 tablet 0 Sig: Take 1 tablet by mouth once daily. glucose 4 gram chewable tablet 10 tablet 5 Sig: Take 4 tablets by mouth as needed for low blood sugar. hydrOXYzine HCl (ATARAX) 25 mg tablet Sig: Take 1 tablet by mouth four times daily as needed. Lancets lancets 200 Each 5 Sig: Use with blood glucose test 2 times daily. Insulin Dep? No metoprolol succinate ER (TOPROL XL) 25 mg 24 hr tablet Sig: Take 1 tablet by mouth once daily. rosuvastatin (CRESTOR) 10 mg tablet Sig: Take 1 tablet by mouth once daily. sucralfate (CARAFATE) 1 gram tablet Sig: Take 1 tablet by mouth four times daily. montelukast (SINGULAIR) 10 mg tablet Sig: Take 1 tablet by mouth daily at bedtime. TRELEGY ELLIPTA 100-62.5-25 mcg inhalation powder Sig: Inhale 1 Puff as instructed once daily. valsartan (DIOVAN) 160 mg tablet Sig: Take 1 tablet by mouth once daily. blood sugar diagnostic test strip 200 Strip 5 Sig: Use with blood glucose test 2 times daily, Insulin Dep? No bumetanide (BUMEX) 1 mg tablet 45 tablet 0 Sig: Take 1.5 tablets by mouth once daily. esomeprazole (NEXIUM) 40 mg capsule Sig: Take 1 capsule by mouth once daily. famotidine (PEPCID) 20 mg tablet Sig: Take 1 tablet by mouth twice daily. FEROSUL 325 mg (65 mg iron) tablet Sig: Take 1 tablet by mouth three times daily with meals. FREEZE DRIED ACIDOPHILUS cap Sig: Take 1 capsule by mouth twice daily. ALLERGIES Allergen Reactions Hydrocodone Vomiting Naproxen Anaphylaxis Sulfa (Sulfonamide * Other: See Comments, Rash Tramadol Hives, Rash Trazodone Hives, Rash (home) [phone] (cell) Last Office Visit Date: 01/03/2022 Last [facility] Visit: Visit date not found Future Appointment: 02/19/2022 The patients preferred pharmacy has been captured for this encounter? yes Request is for script(s) to be escript to pharmacy. Elizabeth Collier LPN Please route telephone encounter to the Clerical Pool ([facility] Clerical Pool) Patient called in to request all of her medications prescriptions be sent to [facility]. Patient states she no longer has transportation to pickle maker her medication and is almost completely out of many of them. Patient is requesting a 3 month supply. [facility] [place] [address] [address] [phone] Jagdeep Orozco, Floor Service Worker [place] February 05, 2022 9:56 AM documented in this encounter [facility] 02-05-2022 Miscellaneous Notes Thank you. I can deliver the message, as long as I have your approval. I called [facility], this has been resolved. Thanks! Marilyn Duran, Floor Service Worker [place] February 05, 2022 10:03 AM The patient is still okay to have this medication as her previous reaction was not severe, so she definitely has my approval. Will I need to call? Thanks so much for your help, Marvel Sam DO Pharmacy called again regarding this request. Informed them we are waiting on word from the doctor, as I cannot make that decision. Marilyn Duran, Floor Service Worker [place] February 04, 2022 1:32 PM Clementine from [facility] called. She is requesting approval to dispense the following; glimepiride (AMARYL) 1 mg tablet 30 tablet 0 01/03/2022 02/02/2022 Sig: Take 1 tablet by mouth once daily. They state that the patient has a sulfa allergy and therefore need the approval. Call back phone # [phone] option 2, reference # [id number]. Marilyn Duran, Floor Service Worker [place] February 03, 2022 2:36 PM documented in this encounter [facility] 01-28-2022 Miscellaneous Notes Patient requesting the following refill Requested Prescriptions Pending Prescriptions Disp Refills glimepiride (AMARYL) 1 mg tablet 90 tablet 0 Sig: Take 1 tablet by mouth once daily. Allergies: Hydrocodone, Naproxen, Sulfa (Sulfonamide Antibiotics), Tramadol, and Trazodone (home) [phone] (cell) Patient last appointment: 01/03/2022 Next Appointment: 02/19/2022 The patients preferred pharmacy has been captured for this encounter? yes Request is for script(s) to be escript to mail order [place]. Almas Santizo LPN Patient requesting refill of glimepiride (AMARYL) 1 mg tablet 30 tablet 0 01/03/2022 02/02/2022 Sig: Take 1 tablet by mouth once daily. Patient wishes to switch to [facility] mail order . I informed the patient she should call her previous pharmacies to switch the rest of her prescriptions over. She refused to do so. Marilyn Duran, Floor Service Worker [place] January 28, 2022 10:43 AM ----- Message from Jomar Tan sent at 01/28/2022 9:59 AM EDT ----- Regarding: [refills ] / [Dr. Bedoya / Medication Question Subject Line Format: [refills ] / [Dr. Bedoya / Medication Question Patient name: Aurelio Bhakta, : 1960, called to request a refill for his/her medication(s). Patient was advised that the refill should be called into the pharmacy. Patient advised they had already done so and over 24 hours has passed since doing so and they are following up: Y/N? Yes . Please contact the patient for additional information at [phone] (home) [phone] (cell). Py need office to call her to git fax number for new pharmacy. Thank you, Jomar Tan January 28, 2022 9:59 AM documented in this encounter [facility] 01-16-2022 Miscellaneous Notes Aurelio failed to show for her RD CDE appointment today. A message was left with scheduling phone number to call and reschedule. Thank you for the referral. Jeane Coelho MS RD LD CDCES documented in this encounter [facility] 01-15-2022 Miscellaneous Notes Please route telephone encounter to the Clerical Pool ([facility] Clerical Pool) Already an existing encounter for her medication refill request. Will update that encounter to reflect that patient called back in. Nani Marshall, Floor Service Worker [place] January 15, 2022 3:02 PM ----- Message from Jomar Tan sent at 01/15/2022 2:06 PM EDT ----- Regarding: [refills] / [tank ] / Medication Question Patient name: Aurelio Bhakta, : 1960, called to request a refill for his/her medication(s). Patient was advised that the refill should be called into the pharmacy. Patient advised they had already done so and over 24 hours has passed since doing so and they are following up: Y/N? Yes . Please contact the patient for additional information at [phone] (home) [phone] (cell). Thank you, Jomar Tan January 15, 2022 2:06 PM documented in this encounter [facility] 01-10-2022 Instructions Sánchez Heard II, OD - 01/10/2022 2:14 PM EDT Assessment and Plan E11.9 Type 2 diabetes mellitus without retinopathy (HCC) (primary encounter diagnosis) Comment: Examination shows no ocular diabetic complications today. Discussed need for optimal diabetes control to minimize chance of ocular complications. Advise patient to immediately report worsening in status or additional symptoms. Continue yearly dilated eye examinations. H52.03 Hyperopia, bilateral H52.223 Regular astigmatism, bilateral H52.4 Presbyopia Comment: Small increase in glasses power demonstrated to patient. Update glasses to maximize visual performance. I have confirmed and edited as necessary the relevant ophthalmic history, ROS, and the neuro exam findings as obtained by others. I have seen and examined Aurelio Bhakta. I have discussed the case and the management of this patient's care with the Resident/Fellow, if applicable. I also have reviewed and agree with the assessment and plan as stated above and agree with all of its relevant components. Sánchez Heard II, OD documented in this encounter [facility] 01-10-2022 History of Present illness Narrative Assessment and Plan E11.9 Type 2 diabetes mellitus without retinopathy (HCC) (primary encounter diagnosis) Comment: Examination shows no ocular diabetic complications today. Discussed need for optimal diabetes control to minimize chance of ocular complications. Advise patient to immediately report worsening in status or additional symptoms. Continue yearly dilated eye examinations. H52.03 Hyperopia, bilateral H52.223 Regular astigmatism, bilateral H52.4 Presbyopia Comment: Small increase in glasses power demonstrated to patient. Update glasses to maximize visual performance. I have confirmed and edited as necessary the relevant ophthalmic history, ROS, and the neuro exam findings as obtained by others. I have seen and examined Aurelio Bhakta. I have discussed the case and the management of this patient's care with the Resident/Fellow, if applicable. I also have reviewed and agree with the assessment and plan as stated above and agree with all of its relevant components. Sánchez Heard II, JUAN documented in this encounter [facility] 01-09-2022 Miscellaneous Notes PA has been denied by patient's insurance. Patient aware and purchased the OTC equivalent. Almas Santizo LPN 01/09/22 3:59 PM PA has been initiated through cover my meds for diclofenac gel. Almas Santizo LPN 01/08/22 2:43 PM documented in this encounter [facility] 01-03-2022 Miscellaneous Notes Thank you so much for letting me know - I updated the orders for the test strips, lancets, and alcohol swabs. Just sent them over to the pharmacy. Thanks again, Marvel Sam DO Please route telephone encounter to the Clerical Pool ([facility] Clerical Pool) Patient called in due to receiving a call from her pharmacy that they did not receive the script for her glucometer. Informed patient that a call would be placed to Rachel Mccullough to clarify if the script would need to be resent. Spoke with pharmacist, they did receive the script for the glucometer, however they cannot process the order without scripts for test strips and lancets and will need scripts sent in for those. They stated to place the scripts for the generic and they will determine what system is covered by the patient's insurance. Nani Marshall, Floor Service Worker [place] January 03, 2022 10:59 AM ----- Message from Debbie Cody sent at 01/03/2022 10:32 AM EDT ----- Regarding: Medicine / Solis Bedoya/ requesting prescription for glucose meter Patient has been identified by name and Date of (Y/N): y Patient: Aurelio Bhakta Date of : 1960 Provider for this encounter: Solis Bedoya MD Reason for the call/escalation: requesting prescription for glucose meter Was Patient Referred to [facility]/Seek Emergency Treatment (Y/N): no Did Patient Agree (Y/N): n/a Was An Attempt Made To Transfer The Patient To The Office (Y/N): no Were You Able To Reach Someone At The Office (Y/N): n/a If Yes - Patient Was Transferred To (Caregivers Name): n/a If No - Which [facility] Leadership Community Health Promoter Did You Speak With Regarding This Patient: n/a Was an appointment scheduled (Y/N): no Reason patient was requesting visit (RFV/signs and symptoms/diagnosis) : requesting prescription for glucose meter Person calling if other than patient: n/a Return call to if other than patient: n/a Best contact number: [phone] Thank you, Debbie Cody January 03, 2022 10:33 AM documented in this encounter [facility] 01-03-2022 History of Present illness Narrative Images from the original note were not included. [facility] Marvel Sam DO ASSESSMENT/PLAN: 1. Controlled type 2 diabetes mellitus without complication, without long-term current use of insulin (HCC) - ICD9: 250.00, ICD10: E11.9 (primary diagnosis) - Newly diagnosed - Endorses family history of diabetes - Has been told previously that her abdominal symptoms are due to gastroparesis [no formal GES done], could be linked with her diabetes - A1c 6.6% on 12/23/2021 - CONSULT TO DIABETES EDUCATION - BLOOD-GLUCOSE METER - BLOOD SUGAR DIAGNOSTIC STRIPS - LANCETS - ALCOHOL SWABS - GLUCOSE 4 GRAM CHEWABLE TABLET - SHARPS CONTAINER - Initiate low-dose GLIMEPIRIDE 1 MG TABLET [as opposed to metformin in the setting of patient's GI issues to begin with, so the side effect profile was not optimal] - Will likely end up connecting her with the [facility] as well 2. Primary osteoarthritis of both knees - ICD9: 715.16, ICD10: M17.0 - Avoid NSAIDs in the setting of her PUD - DICLOFENAC 1 % TOPICAL GEL 3. Leg swelling - ICD9: 729.81, ICD10: M79.89 - Was having increased swelling, so we recently increased her Bumex to 1.5mg with improvement of symptoms - Renal function and potassium fine on recent CMP [12/23/2021] 4. Weight gain - ICD9: 783.1, ICD10: R63.5 5. Abdominal discomfort 6. Peptic ulcer disease - Saw her previous PCP regarding this, and recently underwent colonoscopy + EGD that were both normal - CT abdomen done [10/23/2021] demonstrated hepatic steatosis - MRI [11/11/2021] showed diffuse hepatic steatosis and a 2mm pancreatic tail non-enhancing cystic lesion - Recent labs [12/23/2021]: lipid panel [total cholesterol 230, LDL 149], CBC [WBC 11.50, no other abnormalities], CMP largely unremarkable, and TSH within normal limits - Her abdominal discomfort and distension may be related to gastroparesis, a diagnosis she reports was given to her prior [and may be in the setting of her diabetes] - Endorses a poor diet and no exercise regimen - Referring to diabetes education, hopefully the input they provide on diet can aid in her gastroparesis symptoms - Continue home acidophilus, esomeprazole 40mg, famotidine 20mg BID, ferrous sulfate 325mg TID, and sucralfate 1 gram TID with meals and once before bed 7. Primary hypertension - ICD9: 401.9, ICD10: I10 - Good control - Recommended regular aerobic exercise. - Recommend home blood pressure monitoring, to bring results in on next visit - Goal of BP <130/80 - Continue valsartan 100mg, metoprolol 25mg Marvel Sam, DO PGY-2 SUBJECTIVE: Aurelio Bhakta is a 61 year old year old female here today for a 5-week follow up. HPI Ms. Bhakta is a 61-year-old female with a past medical history significant for intellectual disability, COPD, tobacco dependence, peptic ulcer disease, anxiety, osteoarthritis, lower extremity edema, essential hypertension, hyperlipidemia, iron deficiency anemia, GERD, and obesity. She established with me in the office on 11/29/2021, and she presents today for a 5-week follow up. She is accompanied by her mother. We mainly set up this appointment to address her abdominal symptoms and new diagnosis of type 2 diabetes mellitus. She continues to endorses abdominal bloating / distension as well as weight gain [222 lb today from 216 lb at previous visit]. With her previous PCP, she underwent colonoscopy + EGD [both returned normal] and MRI [showing diffuse hepatic steatosis and a 2mm pancreatic tail non-enhancing cystic lesion]. Following our initial visit last month, the patient had some labs drawn: hemoglobin A1c 6.6%, lipid panel [total cholesterol 230, LDL 149], CBC [WBC 11.50, no other abnormalities], CMP largely unremarkable, and TSH within normal limits. She denies any new changes in her symptoms. History reviewed. No pertinent past medical history. History reviewed. No pertinent surgical history. Social History Tobacco Use Smoking status: Every Day Packs/day: 1.00 Types: Cigarettes Smokeless tobacco: Never Substance Use Topics Alcohol use: Not Currently Drug use: Not Currently History reviewed. No pertinent family history. There are no active hospital problems to display for this patient. PAIN EVALUATION No data found in the last 1 encounters. ALLERGIES Allergen Reactions Hydrocodone Vomiting Naproxen Anaphylaxis Sulfa (Sulfonamide * Other: See Comments, Rash Tramadol Hives, Rash Trazodone Hives, Rash Medication List prior to visit Current Outpatient Medications on File Prior to Visit Medication Sig albuterol HFA (PROVENTIL HFA, VENTOLIN HFA) 90 mcg/actuation inhaler Inhale 2 Puffs as instructed every 6 hours as needed. docusate sodium (COLACE) 100 mg capsule Take 100 mg by mouth q 24 HR. esomeprazole (NEXIUM) 40 mg capsule Take 40 mg by mouth once daily. FEROSUL 325 mg (65 mg iron) tablet Take 1 tablet by mouth three times daily with meals. TRELEGY ELLIPTA 100-62.5-25 mcg inhalation powder Inhale 1 Puff as instructed once daily. hydrOXYzine HCl (ATARAX) 25 mg tablet Take 25 mg by mouth four times daily as needed. metoprolol succinate ER (TOPROL XL) 25 mg 24 hr tablet Take 25 mg by mouth once daily. montelukast (SINGULAIR) 10 mg tablet Take 10 mg by mouth daily at bedtime. rosuvastatin (CRESTOR) 10 mg tablet Take 10 mg by mouth once daily. valsartan (DIOVAN) 160 mg tablet Take 160 mg by mouth once daily. bumetanide (BUMEX) 1 mg tablet Take 1 tablet by mouth once daily. (Patient taking differently: Take 1 mg by mouth once daily. Taking 1 1/2 tabs daily) famotidine (PEPCID) 20 mg tablet Take 20 mg by mouth twice daily. FREEZE DRIED ACIDOPHILUS cap Take 1 capsule by mouth twice daily. sucralfate (CARAFATE) 1 gram tablet Take 1 tablet by mouth four times daily. No current facility-administered medications on file prior to visit. I have confirmed and edited as necessary the chief complaint, medications, past medical, family and social histories. Review of Systems Constitutional: Positive for unexpected weight change. Negative for activity change, appetite change, chills, diaphoresis, fatigue and fever. HENT: Negative for congestion, sneezing, sore throat and trouble swallowing. Eyes: Negative for photophobia, pain and discharge. Respiratory: Negative for cough, shortness of breath and wheezing. Cardiovascular: Positive for leg swelling (improved). Negative for chest pain and palpitations. Gastrointestinal: Positive for abdominal distention. Negative for abdominal pain, anal bleeding, blood in stool, constipation, diarrhea, nausea, rectal pain and vomiting. Endocrine: Negative for polydipsia, polyphagia and polyuria. Genitourinary: Negative for difficulty urinating, dysuria and flank pain. Musculoskeletal: Positive for arthralgias and back pain. Negative for gait problem and myalgias. Skin: Negative for rash and wound. Neurological: Negative for dizziness, weakness, light-headedness and headaches. Psychiatric/Behavioral: Negative for agitation and sleep disturbance. The patient is not nervous/anxious. OBJECTIVE: BP 129/56 (BP Site: Right Arm, BP Position: Sitting) Pulse 73 Temp 36.4 C (97.5 F) Ht 165.1 cm (5' 5) Wt 100.7 kg (222 lb) BMI 36.94 kg/m Body mass index is 36.94 kg/m . Physical Exam Constitutional: General: She is not in acute distress. Appearance: She is obese. She is not ill-appearing, toxic-appearing or diaphoretic. HENT: Head: Normocephalic and atraumatic. Nose: Nose normal. Mouth/Throat: Mouth: Mucous membranes are moist. Pharynx: Oropharynx is clear. Eyes: General: No scleral icterus. Extraocular Movements: Extraocular movements intact. Conjunctiva/sclera: Conjunctivae normal. Pupils: Pupils are equal, round, and reactive to light. Cardiovascular: Rate and Rhythm: Normal rate and regular rhythm. Pulses: Normal pulses. Heart sounds: Normal heart sounds. Pulmonary: Effort: Pulmonary effort is normal. Breath sounds: Normal breath sounds. Abdominal: General: Abdomen is flat. Bowel sounds are normal. There is distension. Palpations: There is no mass. Tenderness: There is no abdominal tenderness. There is no guarding or rebound. Hernia: No hernia is present. Musculoskeletal: Cervical back: Normal range of motion and neck supple. Right lower leg: Edema (trace pitting) present. Left lower leg: Edema (trace pitting) present. Lymphadenopathy: Cervical: No cervical adenopathy. Skin: General: Skin is warm and dry. Capillary Refill: Capillary refill takes less than 2 seconds. Neurological: General: No focal deficit present. Mental Status: She is alert and oriented to person, place, and time. Psychiatric: Comments: Poor insight into current conditions BP 129/56 Pulse 73 Temp 97.5 Ht 5' 5 (1.65m) Wt 222 lb (100.7kg) BMI 36.94 kg/(m^2). Last BP 01/03/22 : 129/56 11/29/21 : 106/73 Last Wt 01/03/22 : 100.7 kg (222 lb) 11/29/21 : 98.4 kg (217 lb) Depression Screening: Patient Refused / Declined Initial Questionnaire: Yes Little interest or pleasure in doing things: 1 - Several days Feeling down, depressed or hopeless: 1 - Several days Score (Questions 1 & 2): 2 Total Score (All Questions): 2 Screening tool completed by provider on patient's behalf. Based on the PHQ-2 score and patient interview, patient is at risk for depression. Screening tool discussed with patient, and I recommended no further intervention at this time. Visit Diagnoses (E11.9) Controlled type 2 diabetes mellitus without complication, without long-term current use of insulin (HCC) (primary encounter diagnosis) (M17.0) Primary osteoarthritis of both knees (M79.89) Leg swelling (R63.5) Weight gain (I10) Primary hypertension There are no discontinued medications. Discussed the above with the patient and my preceptor using shared decision-making. The patient is in agreement with the diagnostic and treatment plans. Results for orders placed or performed in visit on 12/23/21 HGB A1C Result Value Ref Range Hemoglobin A1C 6.6 (H) 4.3 - 5.6 % Estimated Average Glucose 143 mg/dL LIPID PANEL BASIC Result Value Ref Range Cholesterol, Total 230 (H) <200 mg/dL Triglyceride 140 <150 mg/dL HDL Cholesterol 53 >39 mg/dL Non HDL Cholesterol 177 (H) <130 mg/dL Fasting Time 12 hrs VLDL Cholesterol 28 <30 mg/dL TC:HDL Ratio 4.34 <5.10 LDL Cholesterol 149 (H) <100 mg/dL LDL:HDL Ratio 2.81 (H) <2.54 CBC + DIFF Result Value Ref Range WBC 11.50 (H) 3.70 - 11.00 k/uL RBC 5.00 3.90 - 5.20 m/uL Hemoglobin 14.5 11.5 - 15.5 g/dL Hematocrit 44.5 36.0 - 46.0 % MCV 89.0 80.0 - 100.0 fL MCH 29.0 26.0 - 34.0 pg MCHC 32.6 30.5 - 36.0 g/dL RDW-CV 16.5 (H) 11.5 - 15.0 % Platelet Count 261 150 - 400 k/uL MPV 9.3 9.0 - 12.7 fL Neut% 64.2 % Abs Neut 7.38 1.45 - 7.50 k/uL Lymph% 26.1 % Abs Lymph 3.00 1.00 - 4.00 k/uL Wells% 5.8 % Abs Wells 0.67 <0.87 k/uL Eosin% 2.6 % Abs Eosin 0.30 <0.46 k/uL Baso% 0.7 % Abs Baso 0.08 <0.11 k/uL Immature Gran % 0.6 % Abs Immature Gran 0.07 <0.10 k/uL NRBC 0.0 /100 WBC Absolute nRBC <0.01 <0.01 k/uL Diff Type Auto COMP METABOLIC PANEL Result Value Ref Range Protein, Total 7.6 6.3 - 8.0 g/dL Albumin 4.6 3.9 - 4.9 g/dL Calcium, Total 9.8 8.5 - 10.2 mg/dL Bilirubin, Total 0.2 0.2 - 1.3 mg/dL Alkaline Phosphatase 69 34 - 123 U/L AST 26 13 - 35 U/L ALT 41 (H) 7 - 38 U/L Glucose 110 (H) 74 - 99 mg/dL BUN 13 7 - 21 mg/dL Creatinine 0.75 0.58 - 0.96 mg/dL Sodium 137 136 - 144 mmol/L Potassium 4.1 3.7 - 5.1 mmol/L Chloride 99 97 - 105 mmol/L CO2 27 22 - 30 mmol/L Anion Gap 11 9 - 18 mmol/L Estimated Glomerular Filtration Rate 90 >=60 mL/min/1.73m TSH BLD Result Value Ref Range TSH 2.110 0.270 - 4.200 mIU/L Return in about 6 weeks (around 02/14/2022) for Diabetes follow up. Some elements have been copied from my note on 11/29/2021, including the physical exam completed in entirety today, but have been updated where appropriate, and reflect current medical decision making from today, 01/03/2022. Marvel Sam DO, signed on January 03, 2022 2:23 PM documented in this encounter [facility] 12-25-2021 Miscellaneous Notes Pt voiced understanding of Tx plan. Elizabeth Collier LPN As her kidney function has been looking okay, she could increase to 1.5mg daily [1 and a half tablets] for now. We will reassess at our appointment on 01/03/2022 to ensure this is helping. Thanks so much, Marvel Sam DO 12/25/2021 11:45 AM Please route telephone encounter to the Clerical Pool ([facility] Clerical Pool) Patient called in to report that she has increased swelling in her legs, patient is asking if her water pill (Bumex) dose can be increased to help reduce the swelling. Patient has upcoming appointment on 01/03. Nani Marshall, Floor Service Worker [place] December 24, 2021 10:23 AM ----- Message from Debbie Cody sent at 12/24/2021 10:09 AM EDT ----- Regarding: Medicine / Solis Bedoya / requesting change in dosage of water pill due to increased swelling Patient has been identified by name and Date of (Y/N): y Patient: Aurelio Bhakta Date of : 1960 Provider for this encounter: Solis Bedoya MD Reason for the call/escalation: requesting change in dosage of water pill due to increased swelling Was Patient Referred to [facility]/Seek Emergency Treatment (Y/N): no Did Patient Agree (Y/N): n/a Was An Attempt Made To Transfer The Patient To The Office (Y/N): no Were You Able To Reach Someone At The Office (Y/N): n/a If Yes - Patient Was Transferred To (Caregivers Name): n/a If No - Which [facility] Leadership Community Health Promoter Did You Speak With Regarding This Patient: n/a Was an appointment scheduled (Y/N): no Reason patient was requesting visit (RFV/signs and symptoms/diagnosis) : requesting change in dosage of water pill due to increased swelling Person calling if other than patient: n/a Return call to if other than patient: n/a Best contact number: [phone] Thank you, Debbie Cody December 24, 2021 10:10 AM documented in this encounter [facility] 12-25-2021 Miscellaneous Notes Pt notified and voiced understanding of Tx plan and clinical advise. Elizabeth Collier LPN Please inform the patient of the following lab results: - Hemoglobin A1c came back at 6.6%, this constitutes a diagnosis of diabetes. The patient has an appointment to see me on 01/03/2022, so we will discuss the initiation of medication at that visit [likely metformin, but will need to discuss further with the patient due to its GI side effects]. For now, continuing to pursue lifestyle changes including healthy diet and exercise are very important. - TSH [thyroid stimulating hormone] level was within normal limits - Total cholesterol was elevated, and her LDL [the bad cholesterol] was elevated. Will continue to monitor on routine labs, and ensure that she is taking her Crestor 10mg daily. - Metabolic panel [liver function, kidney function, and electrolytes] all looked fine - White blood cell count was slightly elevated, this could signify mild inflammation or infection but in the absence of symptoms, nothing too concerning. The rest of her blood counts were fine. Thank you so much, Marvel Sam DO 12/25/2021 11:43 AM documented in this encounter [facility] 11-29-2021 Miscellaneous Notes Addended by: MARVEL SAM on: 11/29/2021 04:57 PM Modules accepted: Orders documented in this encounter [facility] 11-29-2021 History of Present illness Narrative Images from the original note were not included. [facility] Marvel Sam DO ASSESSMENT/PLAN: 1. Primary hypertension - ICD9: 401.9, ICD10: I10 (primary diagnosis) - Good control - Recommended regular aerobic exercise. - Recommend home blood pressure monitoring, to bring results in on next visit - Goal of BP <130/80 - CBC + DIFF - COMP METABOLIC PANEL - Continue home valsartan 160mg and metoprolol 25mg daily 2. Chronic obstructive pulmonary disease, unspecified COPD type (HCC) - ICD9: 496, ICD10: J44.9 - Continue home Trelegy Ellipta and montelukast 10mg - Continue home albuterol [reports she has not needed to utilize her rescue inhaler in months] 3. Smoking - ICD9: 305.1, ICD10: F17.200 - Cessation encouraged. - Physiologic and physical aspects of tobacco addiction as well as strategies for quitting were discussed. - Counseling was given focusing on the harmful effects of this addiction especially given the patient's medical condition(s) which will be worsened because of the chemicals in tobacco. 4. Anxiety - ICD9: 300.00, ICD10: F41.9 - Continue home atarax 25mg QID PRN 5. Primary osteoarthritis of both knees - ICD9: 715.16, ICD10: M17.0 - Consider voltaren gel - Avoid NSAIDs in setting of peptic ulcer disease 6. Weight gain - ICD9: 783.1, ICD10: R63.5 - Accompanied by abdominal discomfort and distension - Saw her previous PCP regarding this, and recently underwent colonoscopy + EGD that were both normal - CT abdomen done [10/23/2021] demonstrated hepatic steatosis - MRI [11/11/2021] showed diffuse hepatic steatosis and a 2mm pancreatic tail non-enhancing cystic lesion - Will have the patient set up a separate appointment to discuss these specific complaints in more detail - HGB A1C - LIPID PANEL BASIC - TSH BLD 7. Peptic ulcer disease - ICD9: 533.90, ICD10: K27.9 8. Iron deficiency anemia - Continue home acidophilus, esomeprazole 40mg, famotidine 20mg BID, ferrous sulfate 325mg TID, and sucralfate 1 gram TID with meals and once before bed 9. Bilateral lower extremity edema - Continue home Bumex 1g daily - Check renal function and potassium Marvel Sam DO PGY-2 SUBJECTIVE: Aurelio Bhakta is a 61 year old year old female here today for establishment of care. HPI Ms. Bhakta is a 61-year-old female with a past medical history significant for intellectual disability, COPD, tobacco dependence, peptic ulcer disease, anxiety, osteoarthritis, lower extremity edema, essential hypertension, hyperlipidemia, iron deficiency anemia, and GERD. She presents today for establishment of care with a new PCP. She recently was working with another PCP [reports seeing a [employer] two weeks ago], but was dissatisfied with the care she was receiving. She does express concern over recent weight gain and abdominal distension. She reports seeing her previous PCP regarding this, and underwent a colonoscopy + EGD that both returned normal. She also had CT abdomen done [10/23/2021] that demonstrated hepatic steatosis, DDD of L5 - SI, and SI joint degenerative disease. She subsequently underwent MRI which showed diffuse hepatic steatosis and a 2mm pancreatic tail non-enhancing cystic lesion. Social History: Lives with her parents [mother accompanied her on her visit today] and does not work due to her disability. She states she does not watch what she eats and does not exercise. She endorses smoking, but denies other drugs or alcohol. She is not sexually active. Family History: Her parents are not her biological parents, so she is unsure of family history; she believes there is a history of HTN and T2DM. PAIN EVALUATION No data found in the last 1 encounters. ALLERGIES Allergen Reactions Hydrocodone Vomiting Naproxen Anaphylaxis Sulfa (Sulfonamide * Other: See Comments, Rash Tramadol Hives, Rash Trazodone Hives, Rash Current Outpatient Medications Medication Sig bumetanide (BUMEX) 1 mg tablet Take 1 mg by mouth once daily. docusate sodium (COLACE) 100 mg capsule Take 100 mg by mouth q 24 HR. albuterol HFA (PROVENTIL HFA, VENTOLIN HFA) 90 mcg/actuation inhaler Inhale 2 Puffs as instructed every 6 hours as needed. esomeprazole (NEXIUM) 40 mg capsule Take 40 mg by mouth once daily. famotidine (PEPCID) 20 mg tablet Take 20 mg by mouth twice daily. FEROSUL 325 mg (65 mg iron) tablet Take 1 tablet by mouth three times daily with meals. TRELEGY ELLIPTA 100-62.5-25 mcg inhalation powder Inhale 1 Puff as instructed once daily. hydrOXYzine HCl (ATARAX) 25 mg tablet Take 25 mg by mouth four times daily as needed. FREEZE DRIED ACIDOPHILUS cap Take 1 capsule by mouth twice daily. metoprolol succinate ER (TOPROL XL) 25 mg 24 hr tablet Take 25 mg by mouth once daily. montelukast (SINGULAIR) 10 mg tablet Take 10 mg by mouth daily at bedtime. rosuvastatin (CRESTOR) 10 mg tablet Take 10 mg by mouth once daily. sucralfate (CARAFATE) 1 gram tablet Take 1 tablet by mouth four times daily. valsartan (DIOVAN) 160 mg tablet Take 160 mg by mouth once daily. No current facility-administered medications for this visit. I have confirmed and edited as necessary the chief complaint, medications, past medical, family and social histories. Review of Systems Constitutional: Positive for unexpected weight change. Negative for activity change, appetite change, chills, diaphoresis, fatigue and fever. HENT: Negative for congestion, ear pain, sneezing, sore throat, trouble swallowing and voice change. Eyes: Negative for pain, discharge and visual disturbance. Respiratory: Negative for cough, shortness of breath and wheezing. Cardiovascular: Negative for chest pain, palpitations and leg swelling. Gastrointestinal: Positive for abdominal distention. Negative for abdominal pain, blood in stool, constipation, diarrhea, nausea and vomiting. Endocrine: Negative for polydipsia, polyphagia and polyuria. Genitourinary: Negative for difficulty urinating, dysuria and flank pain. Musculoskeletal: Positive for arthralgias. Negative for joint swelling and myalgias. Skin: Negative for rash and wound. Neurological: Negative for dizziness, weakness and headaches. Psychiatric/Behavioral: Negative for agitation, decreased concentration and sleep disturbance. The patient is nervous/anxious. OBJECTIVE: BP 106/73 (BP Site: Left Arm, BP Position: Sitting, BP Cuff Size: Extra Large Adult) Pulse 80 Temp 36.2 C (97.2 F) Resp 20 Ht 165.1 cm (5' 5) Wt 98.4 kg (217 lb) SpO2 94% BMI 36.11 kg/m Body mass index is 36.11 kg/m . Physical Exam Constitutional: General: She is not in acute distress. Appearance: She is obese. She is not ill-appearing, toxic-appearing or diaphoretic. HENT: Head: Normocephalic and atraumatic. Nose: Nose normal. Mouth/Throat: Mouth: Mucous membranes are moist. Pharynx: Oropharynx is clear. Eyes: Extraocular Movements: Extraocular movements intact. Conjunctiva/sclera: Conjunctivae normal. Pupils: Pupils are equal, round, and reactive to light. Neck: Comments: No JVD elevation Cardiovascular: Rate and Rhythm: Normal rate and regular rhythm. Pulses: Normal pulses. Heart sounds: Normal heart sounds. Pulmonary: Effort: Pulmonary effort is normal. Breath sounds: Normal breath sounds. Abdominal: General: Bowel sounds are normal. There is distension. Palpations: Abdomen is soft. Tenderness: There is no abdominal tenderness. There is no right CVA tenderness, left CVA tenderness, guarding or rebound. Genitourinary: Comments: No suprapubic tenderness Musculoskeletal: General: No swelling. Cervical back: Normal range of motion and neck supple. Skin: General: Skin is warm and dry. Capillary Refill: Capillary refill takes less than 2 seconds. Neurological: General: No focal deficit present. Mental Status: She is alert and oriented to person, place, and time. Depression Screening: Screening tool completed by provider on patient's behalf. Based on the PHQ-2 score and patient interview, patient is not at risk for depression. Screening tool discussed with patient, and I recommended no further intervention at this time. No results found for this or any previous visit.. Return in about 5 weeks (around 01/03/2022) for Talk about stomach issues, 40 minute visit. Discussed the above with the patient and my preceptor using shared decision-making. The patient is in agreement with the diagnostic and treatment plans. Provider: Marvel Sam DO Signed on: November 29, 2021 2:18 PM documented in this encounter [facility] 09-05-2021 History of Present illness Narrative Presents today for HTN CHECK. F/U CT AND US. C/O ABD BYRD THAT REMAINS X SEVERAL MONTHS modifying factors consists of US AND CT ABD/PELVIS UNREMARKABLE. COLON 09/05/21 UNREMARKABLE associated symptoms consist of RUQ PAIN, EPIGASTRIC PAIN, LEFT PELVIC PAIN, LLQ PAIN prior treatment consists of medication OMEPRAZOLE AND PROTONIX IN THE PAST. NEXIUM CURRENTLY AND PEPCID. PROBIOTICUTERINE FIBROID- REFUSING OBGYN REFERRAL AT THIS TIMEKIDNEY CYST- REFUSING NEPH REFERRAL AT THIS TIMEHTN- ST[facility] Work Phone: Evaluation + Plan note Future Appointments Appointment Date:03/09/2023 09:45:00 AM Scheduled Provider:PHILLY BELCHER JR, MD Location:[facility] [place] Appointment Type:[facility] Evaluation + Plan note Future Appointments Appointment Date:03/23/2023 09:30:00 AM Scheduled Provider:PHILLY BELCHER JR, MD Location:[facility] [place] Appointment Type:GS OV [facility] Evaluation note Diagnosis Primary hypertension- Primary Unspecified essential hypertension Chronic obstructive pulmonary disease, unspecified COPD type (HCC) Smoking Tobacco use disorder Anxiety Anxiety state, unspecified Primary osteoarthritis of both knees Primary localized osteoarthrosis, lower leg Weight gain Abnormal weight gain Peptic ulcer disease Peptic ulcer, unspecified site, unspecified as acute or chronic, without mention of hemorrhage, perforation, or obstruction Leg swelling Swelling of limb [facility] Diagnosis Controlled type 2 diabetes mellitus without complication, without long-term current use of insulin (HCC)- Primary Primary osteoarthritis of both knees Primary localized osteoarthrosis, lower leg Leg swelling Swelling of limb Weight gain Abnormal weight gain Primary hypertension Unspecified essential hypertension [facility] Diagnosis Type 2 diabetes mellitus without retinopathy (HCC)- Primary Type II or unspecified type diabetes mellitus without mention of complication, not stated as uncontrolled Hyperopia, bilateral Regular astigmatism, bilateral Presbyopia [facility] Diagnosis Controlled type 2 diabetes mellitus without complication, without long-term current use of insulin (HCC) [facility] Diagnosis Chronic obstructive pulmonary disease, unspecified COPD type (HCC)- Primary Controlled type 2 diabetes mellitus without complication, without long-term current use of insulin (HCC) Leg swelling Swelling of limb Peptic ulcer disease Peptic ulcer, unspecified site, unspecified as acute or chronic, without mention of hemorrhage, perforation, or obstruction Anxiety Anxiety state, unspecified Primary hypertension Unspecified essential hypertension [facility] Diagnosis Screening for HIV (human immunodeficiency virus)- Primary Special screening examination for other specified viral diseases Special screening examination for viral disease Special screening examination for unspecified viral disease Type 2 diabetes mellitus without complication, without long-term current use of insulin (HCC) [facility] Diagnosis Leg swelling Swelling of limb Controlled type 2 diabetes mellitus without complication, without long-term current use of insulin (HCC) Anxiety Anxiety state, unspecified [facility]* Diagnosis Leg swelling Swelling of limb [facility]* Diagnosis Anxiety Anxiety state, unspecified documented in this encounter [facility] note* Diagnosis Leg swelling Swelling of limb Anxiety Anxiety state, unspecified Primary hypertension Unspecified essential hypertension Chronic obstructive pulmonary disease, unspecified COPD type (HCC) Peptic ulcer disease Peptic ulcer, unspecified site, unspecified as acute or chronic, without mention of hemorrhage, perforation, or obstruction [facility]* Diagnosis Leg swelling Swelling of limb [facility]* Diagnosis Obesity, Class II, BMI 35-39.9- Primary Obesity, unspecified Type 2 diabetes mellitus without complication, without long-term current use of insulin (HCC) Snoring Other dyspnea and respiratory abnormality Hyperlipidemia, unspecified hyperlipidemia type Essential hypertension Unspecified essential hypertension [facility]* Diagnosis Anxiety Anxiety state, unspecified [facility]* Diagnosis Type 2 diabetes mellitus without complication, without long-term current use of insulin (HCC)- Primary Class 2 severe obesity due to excess calories with serious comorbidity and body mass index (BMI) of 36.0 to 36.9 in adult (HCC) documented [facility]* Diagnosis Class 2 obesity due to excess calories without serious comorbidity with body mass index (BMI) of 35.0 to 35.9 in adult- Primary Controlled type 2 diabetes mellitus without complication, without long-term current use of insulin (HCC) Insomnia, unspecified type Daytime sleepiness Disorder of right rotator cuff Disorders of bursae and tendons in shoulder region, unspecified Primary osteoarthritis of both knees Primary localized osteoarthrosis, lower leg Leg swelling Swelling of limb [facility] Well woman exam- Primary Routine general medical examination at a health care facility Encounter for screening for malignant neoplasm of cervix Screening for malignant neoplasm of the cervix Encounter for screening mammogram for malignant neoplasm of breast Other screening mammogram Encounter for screening for malignant neoplasm of colon Special screening for malignant neoplasms, colon Mass of upper outer quadrant of left breast [facility] Diagnosis Class 2 severe obesity due to excess calories with serious comorbidity and body mass index (BMI) of 36.0 to 36.9 in adult (HCC)- Primary Type 2 diabetes mellitus without complication, without long-term current use of insulin (HCC) Hyperlipidemia, unspecified hyperlipidemia type Essential hypertension Unspecified essential hypertension [facility] Diagnosis Encounter for screening colonoscopy- Primary Special screening for malignant neoplasms, colon [facility] Diagnosis Anxiety Anxiety state, unspecified [facility] Diagnosis Leg swelling Swelling of limb [facility] Diagnosis Type 2 diabetes mellitus without complication, without long-term current use of insulin (HCC)- Primary Class 2 severe obesity due to excess calories with serious comorbidity and body mass index (BMI) of 36.0 to 36.9 in adult (HCC) Essential hypertension Unspecified essential hypertension [facility] Diagnosis Disorder of right rotator cuff- Primary Disorders of bursae and tendons in shoulder region, unspecified [facility] Diagnosis Controlled type 2 diabetes mellitus without complication, without long-term current use of insulin ([facility]) Insomnia, unspecified type Class 2 obesity due to excess calories without serious comorbidity with body mass index (BMI) of 35.0 to 35.9 in adult Leg swelling Swelling of limb [facility]* Diagnosis Daytime sleepiness [facility] Diagnosis Primary hypertension Unspecified essential hypertension [facility] Diagnosis KYAW (obstructive sleep apnea)- Primary Obstructive sleep apnea (adult) (pediatric) [facility]* Diagnosis Primary hypertension Unspecified essential hypertension [facility]* Diagnosis Right shoulder pain, unspecified chronicity- Primary [facility]* Diagnosis Chronic obstructive pulmonary disease, unspecified COPD type (HCC) Peptic ulcer disease Peptic ulcer, unspecified site, unspecified as acute or chronic, without mention of hemorrhage, perforation, or obstruction documented in this encounter [facility] note* Diagnosis Chronic obstructive pulmonary disease, unspecified COPD type (HCC) Type 2 diabetes mellitus without complication, without long-term current use of insulin (HCC) documented in this encounter [facility] note* Diagnosis Anxiety Anxiety state, unspecified documented in this encounter [facility] note* Diagnosis Right shoulder pain, unspecified chronicity- Primary documented in this encounter [facility] note* Diagnosis Obesity, Class II, BMI 35-39.9- Primary Obesity, unspecified Type 2 diabetes mellitus without complication, without long-term current use of insulin (HCC) documented in this encounter [facility] note* Diagnosis Primary hypertension Unspecified essential hypertension documented in this encounter [facility] note* Diagnosis Leg swelling Swelling of limb documented in this encounter [facility] note* Diagnosis Primary hypertension Unspecified essential hypertension Leg swelling Swelling of limb Chronic obstructive pulmonary disease, unspecified COPD type (HCC) documented in this encounter [facility] note* Diagnosis Anxiety Anxiety state, unspecified Chronic obstructive pulmonary disease, unspecified COPD type (HCC) documented in this encounter [facility] note* Diagnosis Type 2 diabetes mellitus without complication, without long-term current use of insulin (HCC)- Primary documented in this encounter [facility] note* Diagnosis Controlled type 2 diabetes mellitus without complication, without long-term current use of insulin (HCC) documented in this encounter [facility] note* Diagnosis Type 2 diabetes mellitus without retinopathy (HCC)- Primary Type II or unspecified type diabetes mellitus without mention of complication, not stated as uncontrolled Combined forms of age-related cataract of both eyes Other and combined forms of senile cataract Dry eye syndrome of bilateral lacrimal glands Tear film insufficiency, unspecified Hyperopia, bilateral Regular astigmatism, bilateral Presbyopia documented in this encounter [facility] note* Diagnosis Hypokalemia- Primary Hypopotassemia documented in this encounter [facility] note* Diagnosis Hemorrhoids, unspecified hemorrhoid type- Primary Peptic ulcer disease Peptic ulcer, unspecified site, unspecified as acute or chronic, without mention of hemorrhage, perforation, or obstruction Diarrhea, unspecified type documented in this encounter [facility] note* Diagnosis Type 2 diabetes mellitus without complication, without long-term current use of insulin ([facility])- Primary documented in this encounter [facility] note* Diagnosis Leg swelling Swelling of limb documented in this encounter [facility] noteNo assessment information availableWCleveland [facility] Work Phone: Evaluation note* Diagnosis Chronic obstructive pulmonary disease, unspecified COPD type (HCC) Anxiety Anxiety state, unspecified documented in this encounter [facility] note* Diagnosis Right shoulder pain, unspecified chronicity documented in this encounter [facility] note* Diagnosis Pain Generalized pain documented in this encounter [facility] note* Diagnosis Leg swelling Swelling of limb documented in this encounter [facility] note* Diagnosis Chronic obstructive pulmonary disease, unspecified COPD type (HCC) documented in this encounter [facility] note* Diagnosis Leg swelling Swelling of limb documented in this encounter [facility] note* Diagnosis Chronic obstructive pulmonary disease, unspecified COPD type (HCC) Anxiety Anxiety state, unspecified documented in this encounter [facility] note* Diagnosis Primary osteoarthritis of right knee- Primary Primary localized osteoarthrosis, lower leg documented in this encounter [facility] note* Diagnosis Cigarette nicotine dependence without complication- Primary Tobacco use disorder documented in this encounter [facility] note* Diagnosis Cigarette nicotine dependence without complication- Primary Tobacco use disorder documented in this encounter [facility] note* Diagnosis Leg swelling Swelling of limb Primary hypertension Unspecified essential hypertension Peptic ulcer disease Peptic ulcer, unspecified site, unspecified as acute or chronic, without mention of hemorrhage, perforation, or obstruction documented in this encounter [facility] note* Diagnosis Chronic obstructive pulmonary disease, unspecified COPD type (HCC) Primary hypertension Unspecified essential hypertension documented in this encounter [facility] note* Diagnosis Type 2 diabetes mellitus without complication, without long-term current use of insulin ([facility])- Primary Encounter for screening mammogram for breast cancer Class 2 severe obesity due to excess calories with serious comorbidity and body mass index (BMI) of 36.0 to 36.9 in adult ([facility]) Advance care planning Other specified counseling Chronic obstructive pulmonary disease, unspecified COPD type (HCC) Anxiety Anxiety state, unspecified Depression, major, single episode, moderate ([facility]) Major depressive disorder, single episode, moderate Depression screen Screening for depression documented in this encounter [facility] note* Diagnosis Chronic obstructive pulmonary disease, unspecified COPD type (HCC) Anxiety Anxiety state, unspecified documented in this encounter [facility] note* Diagnosis Cigarette nicotine dependence without complication Tobacco use disorder documented in this encounter [facility] note* Diagnosis Encounter for screening mammogram for breast cancer documented in this encounter [facility] note* Diagnosis Chronic obstructive pulmonary disease, unspecified COPD type (HCC) documented in this encounter [facility] note* Diagnosis Type 2 diabetes mellitus without complication, without long-term current use of insulin (HCC)- Primary documented in this encounter [facility] note* Diagnosis Encounter for screening for lung cancer- Primary Cigarette nicotine dependence without complication Tobacco use disorder Tobacco use current [facility] Diagnosis Primary osteoarthritis of right knee- Primary Primary localized osteoarthrosis, lower leg Chronic pain of right knee documented in this encounter [facility] note* Diagnosis Chronic obstructive pulmonary disease, unspecified COPD type (HCC) Anxiety Anxiety state, unspecified documented in this encounter [facility] note* Diagnosis Chronic obstructive pulmonary disease, unspecified COPD type (HCC) documented in this encounter [facility] note* Diagnosis Primary osteoarthritis of right knee- Primary Primary localized osteoarthrosis, lower leg documented in this encounter [facility] note* Diagnosis Type 2 diabetes mellitus without complication, without long-term current use of insulin (HCC)- Primary Hx of mammogram Other specified personal history presenting hazards to health Obesity, Class I, BMI 30-34.9 Obesity, unspecified Chronic obstructive pulmonary disease, unspecified COPD type (HCC) Anxiety Anxiety state, unspecified Depression screen Screening for depression Lower extremity edema Edema Encounter for smoking cessation counseling Counseling on substance use and abuse Chronic midline low back pain without sciatica Skin sensitivity Unspecified disorder of skin and subcutaneous tissue Abdominal distention Flatulence, eructation, and gas pain Vitamin D deficiency Unspecified vitamin D deficiency documented in this encounter [facility] note* Diagnosis Primary osteoarthritis of right knee- Primary Primary localized osteoarthrosis, lower leg documented in this encounter [facility] note* Diagnosis Type 2 diabetes mellitus without complication, without long-term current use of insulin (HCC) documented in this encounter [facility] note* Diagnosis Peptic ulcer disease Peptic ulcer, unspecified site, unspecified as acute or chronic, without mention of hemorrhage, perforation, or obstruction Primary hypertension Unspecified essential hypertension documented in this encounter [facility] note* Diagnosis Type 2 diabetes mellitus without retinopathy (HCC)- Primary Type II or unspecified type diabetes mellitus without mention of complication, not stated as uncontrolled 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 Other and combined forms of senile cataract Dry eye syndrome of bilateral lacrimal glands Tear film insufficiency, unspecified Hyperopia, bilateral Regular astigmatism, bilateral Presbyopia documented in this encounter [facility] note* Diagnosis 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 Hyperopia, bilateral Type 2 diabetes mellitus without retinopathy (HCC) Type II or unspecified type diabetes mellitus without mention of complication, not stated as uncontrolled documented in this encounter [facility] note* Diagnosis Primary osteoarthritis of right knee- Primary Primary localized osteoarthrosis, lower leg documented in this encounter [facility] note* Diagnosis Smoker- Primary Tobacco use disorder Centrilobular emphysema (HCC) Other emphysema Encounter for screening for lung cancer documented in this encounter [facility] note* Diagnosis Centrilobular emphysema (HCC) Other emphysema [facility] Diagnosis Smoker Tobacco use disorder Encounter for screening for lung cancer documented in this encounter [facility] note* Diagnosis Smoker- Primary Tobacco use disorder Encounter for screening for malignant neoplasm of lung documented in this encounter [facility] note* Diagnosis Type 2 diabetes mellitus without complication, without long-term current use of insulin (HCC) Chronic obstructive pulmonary disease, unspecified COPD type (HCC) documented in this encounter [facility] note* Diagnosis Primary osteoarthritis of right knee- Primary Primary localized osteoarthrosis, lower leg [facility] Diagnosis Chronic obstructive pulmonary disease, unspecified COPD type (HCC) documented in this encounter [facility] note* Diagnosis 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- Primary Combined forms of age-related cataract of both eyes Other and combined forms of senile cataract Regular astigmatism, bilateral Presbyopia Dry eye syndrome of bilateral lacrimal glands Tear film insufficiency, unspecified Type 2 diabetes mellitus without retinopathy (HCC) Type II or unspecified type diabetes mellitus without mention of complication, not stated as uncontrolled [facility] Diagnosis 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 C/O ABD BLOATING X SEVERAL WEEKS modifying factors consists of HAS GERD AND H/O ULCERS associated symptoms consist of DIARRHEA. ABD PAIN. prior treatment consists of medication OMEPRAZOLE, PROTONIX * DEPRESSION/ANXIETY- REFUSING MED MANAGEMENT FOR DEPRESSION BUT WILLING TO TRY PRN VESTRIL FOR ANXIETY. HAS TRIED BUSPAR IN THE PAST * COPD- NOT ON DAILY INHALER. WILL START SYMBICORT. START SINGULAR * HTN- STABLE [facility] Work Phone: History of Present illness Narrative* Presents today TO ESTABLISH NEW. C/O ABD BLOATING X SEVERAL WEEKS modifying factors consists of HAS GERD AND H/O ULCERS associated symptoms consist of DIARRHEA. ABD PAIN. prior treatment consists of medication OMEPRAZOLE, PROTONIX * DEPRESSION/ANXIETY- REFUSING MED MANAGEMENT FOR DEPRESSION BUT WILLING TO TRY PRN VESTRIL FOR ANXIETY. HAS TRIED BUSPAR IN THE PAST * COPD- NOT ON DAILY INHALER. WILL START SYMBICORT. START SINGULAR * HTN- STABLE [facility] Work Phone: History of Present illness Narrative* The patient is being seen for the subsequent annual wellness visit. * Past Medical, Surgical and Family History: reviewed and updated in chart. * Interval History: Patient has not been hospitalized previously. * Medications and Supplements: Review of all medications by a prescribing practitioner or clinical pharmacist (such as prescriptions, OTCs, herbal therapies and supplements) documented in the medical record. * No, the patient is not using opioids. * Patient Self Assessment of Health Status: good. * Tobacco use: Non-User * Alcohol use: As noted in social history * Illicit drug use: Non-User * Current diet: well balanced diet, does consume adequate fluids and does consume caffeine. * Exercise Frequency: the patient does not exercise. * Depression/Suicide Screening: Patient has a current diagnosis of depression . * During the past 2 weeks, the patient has not felt down, depressed or hopeless. * During the past 2 weeks, the patient has not felt little interest or pleasure in doing things. * Hearing Impairment: none. * Cognitive Impairment: No cognitive impairment observed, patient or family reported no cognitive impairment. * Bathing: performs independently. * Dressing: performs independently. * Walking: performs independently. * Toileting: performs independently. * Feeding: performs independently. * Personal Hygiene: performs independently. * Bowels: continent. * Bladder: continent. * Managing Finances: performs independently. * Shopping: performs independently. * Managing Medications: performs independently. * Housework / Basic Home Maintenance: performs independently. * Handling Transportation: performs independently. * Preparing Meals: performs independently. * Using the Telephone/ Communication Devices: performs independently. * Falls Risk Screening:. AURELIO has not fallen in the last 6 months. * Home safety risk factors: none. * Advance directives:. Advance Care Planning discussed and documented in the medical record, patient did not wish or was not able to name a surrogate decision maker or provide an advance care plan. Patient has no living will. Patient has no healthcare POA. * Presents today for MEDICARE WELLNESS AND [facility]. NO NEW COMPLAINTS * ABD BLOATING - IMPROVED WITH PROBIOTIC AND NEXIUM * DEPRESSION/ANXIETY- REFUSING MED MANAGEMENT FOR DEPRESSION. PRN VESTRIL FOR ANXIETY HELPING * COPD- HER INSURANCE WILL NOT COVER SYMBICORT WITHOUT A FORMULA EXCEPTION. WILL CONTACT COMFORT * HTN- STABLE * GASTRIC ULCER 10/31/21 REPEAT EGD * WBC- IMPROVING * PREDIABETES- HGA1C 6.1%. DISCUSSED DIET MODIFICATIONS [facility] Work Phone: History of Present illness Narrative* Presents today for B/L FOOT EDEMA X 1 WEEK modifying factors consists of SHE IS ON CCB associated symptoms consist of PAIN RESOLVE AT NIGHT AND COMES BACK WHEN SHE WAKES UP AND GETS UP TO THE DAY prior treatment consists of medication * C/O JOINT PAIN TI RIGHT SHOULDER AND RIGHT LEG/ANKLE X SEVERAL WEEKS modifying factors consists of H/O OA associated symptoms consist of NO EDEMA prior treatment consists of medication NONE * HTN- STOP NORVASC R/T EDEMA. HTCZ MAY BE STARTED IF NEEDED AT NEXT APPT [facility] Work Phone: History of Present illness NarrativePatient presents stating that she has noticed abdominal bloating and abdominal discomfort for several months. She had an MRI performed recently. She denies any postmenopausal bleeding.[facility] [address] [place] Work Phone: Hospital course Narrative No data available for this section [facility] Hospital Discharge instructions Additional Instructions Continue to take sitz bath's twice a day, follow-up with your GI doctor.[facility] Work Phone: Hospital Discharge instructions No data available for this section [facility] Progress note No data available for this section [facility] Reason for referral (narrative)* Diagnostic Procedure Only (Routine) - Pending Review Specialty Diagnoses / Procedures Referred By Goldie jackson Referred To Contact [facility] Diagnoses Encounter for screening mammogram for malignant neoplasm of breast Mass of upper outer quadrant of left breast Procedures AYANA DIAGNOSTIC BILAT DIAGNOSTIC MAMMOGRAPHY COMPUTER-AIDED DETCJ Cara Lujan DO [address] [place] [address] [facility] [address] [place] [address] Referral ID Status Reason Start Date Expiration Date Visits Requested Visits Authorized [id number] Pending Review Auto-Generat ed Referral 06/09/2022 07/09/2023 1 1 [facility] for referral (narrative)* Diagnostic Procedure Only (Routine) - Pending Review Specialty Diagnoses / Procedures Referred By Goldie jackson Referred To Contact XR IMAGING Diagnoses Right shoulder pain, unspecified chronicity Procedures XR SHOULDER 3V AP/Y VIEW/AXILLARY RIGHT (AK) RADEX SHOULDER COMPLETE MINIMUM 2 VIEWS En Doan DO 1 [facility] [address] [place] [address] Xr Imaging Referral ID Status Reason Start Date Expiration Date Visits Requested Visits Authorized [id number] Pending Review Auto-Generat ed Referral 08/15/2022 09/14/2023 1 1 [facility] for referral (narrative)* Diagnostic Procedure Only (Routine) - Closed Specialty Diagnoses / Procedures Referred By Contac t Referred To Contact XR IMAGING Diagnoses Pain Procedures XR KNEE GENERAL 4V AP BOTH/PA BOTH/LAT/MERC RIGHT RADIOLOGIC EXAM KNEE COMPLETE 4/MORE VIEWS Kenia Thao PA-C [address] [place] [address] Xr Imaging [id number] Referral ID Status Reason Start Date Expiration Date V isits Requested Visits Authorized [id number] Closed Auto-Generate d Referral 09/10/2022 10/10/2023 1 1 [facility] for referral (narrative)* Outpatient Procedure (Routine) - Authorized Specialty Diagnoses / Procedures Referred By Contac t Referred To Contact [facility] Diagnoses Cigarette nicotine dependence without complication Procedures LUNG DIFFUSION CAPACITY (DLCO) DIFFUSING CAPACITY Patience Alexander PA-C [address] [place] [address] Res[facility] [place] [address] [place] [address] Referral ID Status Reason Start Date Expiration Date Visits Requested Visits Authorized [id number] Authorized Auto-Generat ed Referral 07/28/2023 08/26/2024 1 1 * Outpatient Procedure (Routine) - Authorized Specialty Diagnoses / Procedures Referred By Contac t Referred To Contact [facility] Diagnoses Cigarette nicotine dependence without complication Procedures SPIROMETRY - BASELINE AND POST DILATOR BRNCDILAT RSPSE SPMTRY PRE&POST-BRNCDILAT ADMN Patience Alexander PA-C [address] [place] [address] Respiratory [place] [id number] Referral ID Status Reason Start Date Expiration Date Visits Requested Visits Authorized [id number] Authorized Auto-Generat ed Referral 07/28/2023 08/26/2024 1 1 [facility] for referral (narrative)* Diagnostic Procedure Only (Routine) - Authorized Specialty Diagnoses / Procedures Referred By Contac t Referred To Contact [facility] Diagnoses Encounter for screening mammogram for breast cancer Procedures AYANA SCREENING SCREENING MAMMOGRAPHY BI 2-VIEW BREAST INC CAD Chris Raza MD [address] [place] [address] [facility] [address] [place] [address] Referral ID Status Reason Start Date Expiration Date Visits Requested Visits Authorized [id number] Authorized Auto-Generat ed Referral 08/17/2023 09/15/2024 1 1 [facility] for visit Narrative* Diagnostic Procedure Only (Routine) - Closed Specialty Diagnoses / Procedures Referred By Contac t Referred To Contact XR IMAGING Diagnoses Right shoulder pain, unspecified chronicity Procedures XR SHOULDER 3V AP/Y VIEW/AXILLARY RIGHT (AK) RADEX SHOULDER COMPLETE MINIMUM 2 VIEWS En Doan, 1 [facility] [address] [place] [address] [place] [address] Referral ID Status Reason Start Date Expiration Date V isits Requested Visits Authorized [id number] Closed Auto-Generate d Referral 08/15/2022 09/14/2023 1 1 [facility] for visit Narrative* Diagnostic Procedure Only (Routine) - Closed Specialty Diagnoses / Procedures Referred By Contac t Referred To Contact XR IMAGING Diagnoses Pain Procedures XR KNEE GENERAL 4V AP BOTH/PA BOTH/LAT/MERC RIGHT RADIOLOGIC EXAM KNEE COMPLETE 4/MORE VIEWS Kenia Thao, PA-C [address] [place] [address] [place] [address] Referral ID Status Reason Start Date Expiration Date V isits Requested Visits Authorized [id number] Closed Auto-Generate d Referral 09/10/2022 10/10/2023 1 1 [facility] for visit Narrative* Diagnostic Procedure Only (Routine) - Closed Specialty Diagnoses / Procedures Referred By Contac t Referred To Contact [facility] Diagnoses Encounter for screening mammogram for breast cancer Procedures AYANA SCREENING SCREENING MAMMOGRAPHY BI 2-VIEW BREAST INC CAD Chris Raza MD [address] [place] [address] Br [place] [address] Referral ID Status Reason Start Date Expiration Date V isits Requested Visits Authorized [id number] Closed Auto-Generate d Referral 08/17/2023 09/15/2024 1 1 [facility] Chief Complaint EST NEW; CHECK UP; C/O ENLARGED STOMACH AND DIARRHEA-HAS HEMORRHOIDS-WHENEVER SHE EATS THE FOOD GOES RIGHT THROUGH HER. HAS HAD COLON AND EGD DONE 4 YEARS AGO.EST NEW; CHECK UP; C/O ENLARGED STOMACH AND DIARRHEA-HAS HEMORRHOIDS- WHENEVER SHE EATS THE FOOD GOES RIGHT THROUGH HER. HAS HAD COLON AND EGD DONE 4 YEARS AGO.MEDICARE WELLNESS; F/U LABS, COLON/EGDB/L FOOT EDEMA AND ARTHRITISF/U BP AND F/U ABDOMINAL U/SNew patient here to review MRI results. Patient c/o bloating. Family History Unknown Family Member Name Dates Details Family history of malignant neoplasm of brain: Father(V16.8, Z80.8) Status:Active Family history of cerebral a neurysm: Father(V17.1, Z82.49) Status:Active : Mother Status:Active Family history of cardiac di sorder: Mother(V17.49, Z82.49) Status:Active Family history of type 2 jason betes mellitus: Sister, Maternal Grandfather(V18.0, Z83.3) Status:Active Bipolar depression: Sister Status:Active Chronic kidney disease, stag e 3: Sister Status:Active Family history of chronic ob structive pulmonary disease: Sister(V17.6, Z82.5) Status:Active Family history of hypertensi on: Sister(V17.49, Z82.49) Status:Active Family history of hypothyroi dism: Sister(V18.19, Z83.49) Status:Active [place]AW on CPAP: Sister Status:Active Unknown Family Member Name Dates Details Family history of malignant neoplasm of brain: Father(V16.8, Z80.8) Status:Active Family history of cerebral a neurysm: Father(V17.1, Z82.49) Status:Active : Mother Status:Active Family history of cardiac di sorder: Mother(V17.49, Z82.49) Status:Active Family history of type 2 jason betes mellitus: Sister, Maternal Grandfather(V18.0, Z83.3) Status:Active KYAW on CPAP: Sister Status:Active Family history of hypothyroi dism: Sister(V18.19, Z83.49) Status:Active Family history of hypertensi on: Sister(V17.49, Z82.49) Status:Active Family history of chronic ob structive pulmonary disease: Sister(V17.6, Z82.5) Status:Active Chronic kidney disease, stag e 3: Sister Status:Active Bipolar depression: Sister Status:Active Unknown Family Member Name Dates Details Family history of malignant neoplasm of brain: Father(V16.8, Z80.8) Status:Active Family history of cerebral a neurysm: Father(V17.1, Z82.49) Status:Active : Mother Status:Active Family history of cardiac di sorder: Mother(V17.49, Z82.49) Status:Active Family history of type 2 jason betes mellitus: Sister, Maternal Grandfather(V18.0, Z83.3) Status:Active [place]AW on CPAP: Sister Status:Active Family history of hypothyroi dism: Sister(V18.19, Z83.49) Status:Active Family history of hypertensi on: Sister(V17.49, Z82.49) Status:Active Family history of chronic ob structive pulmonary disease: Sister(V17.6, Z82.5) Status:Active Chronic kidney disease, stag e 3: Sister Status:Active Bipolar depression: Sister Status:Active Unknown Family Member Name Dates Details Family history of malignant neoplasm of brain: Father(V16.8, Z80.8) Status:Active Family history of cerebral a neurysm: Father(V17.1, Z82.49) Status:Active : Mother Status:Active Family history of cardiac di sorder: Mother(V17.49, Z82.49) Status:Active Family history of type 2 jason betes mellitus: Sister, Maternal Grandfather(V18.0, Z83.3) Status:Active Bipolar depression: Sister Status:Active Chronic kidney disease, stag e 3: Sister Status:Active Family history of chronic ob structive pulmonary disease: Sister(V17.6, Z82.5) Status:Active Family history of hypertensi on: Sister(V17.49, Z82.49) Status:Active Family history of hypothyroi dism: Sister(V18.19, Z83.49) Status:Active KYAW on CPAP: Sister Status:Active Unknown Family Member Name Dates Details Family history of malignant neoplasm of brain: Father(V16.8, Z80.8) Status:Active Family history of cerebral a neurysm: Father(V17.1, Z82.49) Status:Active : Mother Status:Active Family history of cardiac di sorder: Mother(V17.49, Z82.49) Status:Active Family history of type 2 jason betes mellitus: Sister, Maternal Grandfather(V18.0, Z83.3) Status:Active KYAW on CPAP: Sister Status:Active Family history of hypothyroi dism: Sister(V18.19, Z83.49) Status:Active Family history of hypertensi on: Sister(V17.49, Z82.49) Status:Active Family history of chronic ob structive pulmonary disease: Sister(V17.6, Z82.5) Status:Active Chronic kidney disease, stag e 3: Sister Status:Active Bipolar depression: Sister Status:Active Unknown Family Member Name Dates Details Family history of malignant neoplasm of brain: Father(V16.8, Z80.8) Status:Active Family history of cerebral a neurysm: Father(V17.1, Z82.49) Status:Active : Mother Status:Active Family history of cardiac di sorder: Mother(V17.49, Z82.49) Status:Active Family history of type 2 jason betes mellitus: Sister, Maternal Grandfather(V18.0, Z83.3) Status:Active Bipolar depression: Sister Status:Active Chronic kidney disease, stag e 3: Sister Status:Active Family history of chronic ob structive pulmonary disease: Sister(V17.6, Z82.5) Status:Active Family history of hypertensi on: Sister(V17.49, Z82.49) Status:Active Family history of hypothyroi dism: Sister(V18.19, Z83.49) Status:Active KYAW on CPAP: Sister Status:Active Unknown Family Member Name Dates Details Family history of malignant neoplasm of brain: Father(V16.8, Z80.8) Status:Active Family history of cerebral a neurysm: Father(V17.1, Z82.49) Status:Active : Mother Status:Active Family history of cardiac di sorder: Mother(V17.49, Z82.49) Status:Active Family history of type 2 jason betes mellitus: Sister, Maternal Grandfather(V18.0, Z83.3) Status:Active Bipolar depression: Sister Status:Active Chronic kidney disease, stag e 3: Sister Status:Active Family history of chronic ob structive pulmonary disease: Sister(V17.6, Z82.5) Status:Active Family history of hypertensi on: Sister(V17.49, Z82.49) Status:Active Family history of hypothyroi dism: Sister(V18.19, Z83.49) Status:Active [place]AW on CPAP: Sister Status:Active Unknown Family Member Name Dates Details Family history of malignant neoplasm of brain: Father(V16.8, Z80.8) Status:Active Family history of cerebral a neurysm: Father(V17.1, Z82.49) Status:Active : Mother Status:Active Family history of cardiac di sorder: Mother(V17.49, Z82.49) Status:Active Family history of type 2 jason betes mellitus: Sister, Maternal Grandfather(V18.0, Z83.3) Status:Active Bipolar depression: Sister Status:Active Chronic kidney disease, stag e 3: Sister Status:Active Family history of chronic ob structive pulmonary disease: Sister(V17.6, Z82.5) Status:Active Family history of hypertensi on: Sister(V17.49, Z82.49) Status:Active Family history of hypothyroi dism: Sister(V18.19, Z83.49) Status:Active [place]AW on CPAP: Sister Status:Active Unknown Family Member Name Dates Details Family history of malignant neoplasm of brain: Father(V16.8, Z80.8) Status:Active Family history of cerebral a neurysm: Father(V17.1, Z82.49) Status:Active : Mother Status:Active Family history of cardiac di sorder: Mother(V17.49, Z82.49) Status:Active Family history of type 2 jason betes mellitus: Sister, Maternal Grandfather(V18.0, Z83.3) Status:Active Bipolar depression: Sister Status:Active Chronic kidney disease, stag e 3: Sister Status:Active Family history of chronic ob structive pulmonary disease: Sister(V17.6, Z82.5) Status:Active Family history of hypertensi on: Sister(V17.49, Z82.49) Status:Active Family history of hypothyroi dism: Sister(V18.19, Z83.49) Status:Active [place]AW on CPAP: Sister Status:Active Unknown Family Member Name Dates Details Family history of malignant neoplasm of brain: Father(V16.8, Z80.8) Status:Active Family history of cerebral a neurysm: Father(V17.1, Z82.49) Status:Active : Mother Status:Active Family history of cardiac di sorder: Mother(V17.49, Z82.49) Status:Active Family history of type 2 jason betes mellitus: Sister, Maternal Grandfather(V18.0, Z83.3) Status:Active Bipolar depression: Sister Status:Active Chronic kidney disease, stag e 3: Sister Status:Active Family history of chronic ob structive pulmonary disease: Sister(V17.6, Z82.5) Status:Active Family history of hypertensi on: Sister(V17.49, Z82.49) Status:Active Family history of hypothyroi dism: Sister(V18.19, Z83.49) Status:Active [place]AW on CPAP: Sister Status:Active Unknown Family Member Name Dates Details Family history of malignant neoplasm of brain: Father(V16.8, Z80.8) Status:Active Family history of cerebral a neurysm: Father(V17.1, Z82.49) Status:Active : Mother Status:Active Family history of cardiac di sorder: Mother(V17.49, Z82.49) Status:Active Family history of type 2 jason betes mellitus: Sister, Maternal Grandfather(V18.0, Z83.3) Status:Active Bipolar depression: Sister Status:Active Chronic kidney disease, stag e 3: Sister Status:Active Family history of chronic ob structive pulmonary disease: Sister(V17.6, Z82.5) Status:Active Family history of hypertensi on: Sister(V17.49, Z82.49) Status:Active Family history of hypothyroi dism: Sister(V18.19, Z83.49) Status:Active KYAW on CPAP: Sister Status:Active Unknown Family Member Name Dates Details Family history of malignant neoplasm of brain: Father(V16.8, Z80.8) Status:Active Family history of cerebral a neurysm: Father(V17.1, Z82.49) Status:Active : Mother Status:Active Family history of cardiac di sorder: Mother(V17.49, Z82.49) Status:Active Family history of type 2 jason betes mellitus: Sister, Maternal Grandfather(V18.0, Z83.3) Status:Active Bipolar depression: Sister Status:Active Chronic kidney disease, stag e 3: Sister Status:Active Family history of chronic ob structive pulmonary disease: Sister(V17.6, Z82.5) Status:Active Family history of hypertensi on: Sister(V17.49, Z82.49) Status:Active Family history of hypothyroi dism: Sister(V18.19, Z83.49) Status:Active KYAW on CPAP: Sister Status:Active Unknown Family Member Name Dates Details Family history of malignant neoplasm of brain: Father(V16.8, Z80.8) Status:Active Family history of cerebral a neurysm: Father(V17.1, Z82.49) Status:Active : Mother Status:Active Family history of cardiac di sorder: Mother(V17.49, Z82.49) Status:Active Family history of type 2 jason betes mellitus: Sister, Maternal Grandfather(V18.0, Z83.3) Status:Active Bipolar depression: Sister Status:Active Chronic kidney disease, stag e 3: Sister Status:Active Family history of chronic ob structive pulmonary disease: Sister(V17.6, Z82.5) Status:Active Family history of hypertensi on: Sister(V17.49, Z82.49) Status:Active Family history of hypothyroi dism: Sister(V18.19, Z83.49) Status:Active [place]AW on CPAP: Sister Status:Active Unknown Family Member Name Dates Details Family history of malignant neoplasm of brain: Father(V16.8, Z80.8) Status:Active Family history of cerebral a neurysm: Father(V17.1, Z82.49) Status:Active : Mother Status:Active Family history of cardiac di sorder: Mother(V17.49, Z82.49) Status:Active Family history of type 2 jason betes mellitus: Sister, Maternal Grandfather(V18.0, Z83.3) Status:Active Bipolar depression: Sister Status:Active Chronic kidney disease, stag e 3: Sister Status:Active Family history of chronic ob structive pulmonary disease: Sister(V17.6, Z82.5) Status:Active Family history of hypertensi on: Sister(V17.49, Z82.49) Status:Active Family history of hypothyroi dism: Sister(V18.19, Z83.49) Status:Active [place]AW on CPAP: Sister Status:Active Unknown Family Member Name Dates Details Family history of malignant neoplasm of brain: Father(V16.8, Z80.8) Status:Active Family history of cerebral a neurysm: Father(V17.1, Z82.49) Status:Active : Mother Status:Active Family history of cardiac di sorder: Mother(V17.49, Z82.49) Status:Active Family history of type 2 jason betes mellitus: Sister, Maternal Grandfather(V18.0, Z83.3) Status:Active KYAW on CPAP: Sister Status:Active Family history of hypothyroi dism: Sister(V18.19, Z83.49) Status:Active Family history of hypertensi on: Sister(V17.49, Z82.49) Status:Active Family history of chronic ob structive pulmonary disease: Sister(V17.6, Z82.5) Status:Active Chronic kidney disease, stag e 3: Sister Status:Active Bipolar depression: Sister Status:Active Unknown Family Member Name Dates Details Family history of malignant neoplasm of brain: Father(V16.8, Z80.8) Status:Active Family history of cerebral a neurysm: Father(V17.1, Z82.49) Status:Active : Mother Status:Active Family history of cardiac di sorder: Mother(V17.49, Z82.49) Status:Active Family history of type 2 jason betes mellitus: Sister, Maternal Grandfather(V18.0, Z83.3) Status:Active Bipolar depression: Sister Status:Active Chronic kidney disease, stag e 3: Sister Status:Active Family history of chronic ob structive pulmonary disease: Sister(V17.6, Z82.5) Status:Active Family history of hypertensi on: Sister(V17.49, Z82.49) Status:Active Family history of hypothyroi dism: Sister(V18.19, Z83.49) Status:Active KYAW on CPAP: Sister Status:Active Unknown Family Member Name Dates Details Family history of malignant neoplasm of brain: Father(V16.8, Z80.8) Status:Active Family history of cerebral a neurysm: Father(V17.1, Z82.49) Status:Active : Mother Status:Active Family history of cardiac di sorder: Mother(V17.49, Z82.49) Status:Active Family history of type 2 jason betes mellitus: Sister, Maternal Grandfather(V18.0, Z83.3) Status:Active Bipolar depression: Sister Status:Active Chronic kidney disease, stag e 3: Sister Status:Active Family history of chronic ob structive pulmonary disease: Sister(V17.6, Z82.5) Status:Active Family history of hypertensi on: Sister(V17.49, Z82.49) Status:Active Family history of hypothyroi dism: Sister(V18.19, Z83.49) Status:Active KYAW on CPAP: Sister Status:Active Unknown Family Member Name Dates Details Family history of malignant neoplasm of brain: Father(V16.8, Z80.8) Status:Active Family history of cerebral a neurysm: Father(V17.1, Z82.49) Status:Active : Mother Status:Active Family history of cardiac di sorder: Mother(V17.49, Z82.49) Status:Active Family history of type 2 jason betes mellitus: Sister, Maternal Grandfather(V18.0, Z83.3) Status:Active Bipolar depression: Sister Status:Active Chronic kidney disease, stag e 3: Sister Status:Active Family history of chronic ob structive pulmonary disease: Sister(V17.6, Z82.5) Status:Active Family history of hypertensi on: Sister(V17.49, Z82.49) Status:Active Family history of hypothyroi dism: Sister(V18.19, Z83.49) Status:Active KYAW on CPAP: Sister Status:Active Family history of osteoporos is: Mother(V17.81, Z82.62) Status:Active Psychological disorder: Sist er Status:Active Unknown Family Member Name Dates Details Family history of malignant neoplasm of brain: Father(V16.8, Z80.8) Status:Active Family history of cerebral a neurysm: Father(V17.1, Z82.49) Status:Active : Mother Status:Active Family history of cardiac di sorder: Mother(V17.49, Z82.49) Status:Active Family history of type 2 jason betes mellitus: Sister, Maternal Grandfather(V18.0, Z83.3) Status:Active Bipolar depression: Sister Status:Active Chronic kidney disease, stag e 3: Sister Status:Active Family history of chronic ob structive pulmonary disease: Sister(V17.6, Z82.5) Status:Active Family history of hypertensi on: Sister(V17.49, Z82.49) Status:Active Family history of hypothyroi dism: Sister(V18.19, Z83.49) Status:Active [place]AW on CPAP: Sister Status:Active Family history of osteoporos is: Mother(V17.81, Z82.62) Status:Active Psychological disorder: Sist er Status:Active Summary Purpose Advance Directives Advance Directive Response Recorded Date/ Time Living Will No January 24 3:09pm Power of Gold Blower No January 24, 2023 3:09pm Reason for Referral Specialty Diagnoses / Procedures Referred By Goldie jackson Referred To Contact Diagnoses Controlled type 2 diabetes mellitus without complication, without long-term current use of insulin (HCC) Procedures CONSULT TO DIABETES EDUCATION OFFICE/OUTPATIENT [facility] 60-74 MINUTES En Doan DO 1 [facility] [address] [place] [address] Referral ID Status Reason Start Date Expiration Date Visits Requested Visits Authorized [id number] Pending Review PCP Requested Referral 01/03/2022 01/03/2023 1 1 Specialty Diagnoses / Procedures Referred By Goldie jackson Referred To Contact Diagnoses Snoring Procedures CONSULT TO SLEEP MEDICINE - ADULT OFFICE/OUTPATIENT [facility] 60-74 MINUTES Elsa Kerr MD [address] [place] [address] Referral ID Status Reason Start Date Expiration Date Visits Requested Visits Authorized [id number] Pending Review PCP Requested Referral 05/12/2022 08/10/2022 1 1 Specialty Diagnoses / Procedures Referred By Contac t Referred To Contact Diagnoses Disorder of right rotator cuff Procedures CONSULT TO PHYSICAL THERAPY (AG) Solis Bedoya MD [address] [place] [address] Referral ID Status Reason Start Date Expiration Date Visits Requested Visits Authorized [id number] Ref Not Required PCP Requested Referral 05/22/2022 08/20/2022 1 1 Specialty Diagnoses / Procedures Referred By Contac t Referred To Contact General Surgery Diagnoses Encounter for screening colonoscopy Procedures CONSULT TO GENERAL SURGERY OFFICE/OUTPATIENT [facility] 60-74 MINUTES Cara Lujan, [address] [place] [address] Referral ID Status Reason Start Date Expiration Date Visits Requested Visits Authorized [id number] Pending Review PCP Requested Referral 06/19/2022 06/19/2023 1 1 Specialty Diagnoses / Procedures Referred By Contac t Referred To Contact [facility] Diagnoses Disorder of right rotator cuff Procedures PT REHAB FOLLOW UP ORDER THERAPEUTIC EXERCISES RE, EA 15 MIN. Leigha Torres, PT [facility] [place] [address] [place] [address] Referral ID Status Reason Start Date Expiration Date Visits Requested Visits Authorized [id number] Pending Review PCP Requested Referral Auto-Generate d Referral 06/30/2022 09/28/2022 1 1 Specialty Diagnoses / Procedures Referred By Contac t Referred To Contact Diagnoses Right shoulder pain, unspecified chronicity Procedures CONSULT TO PHYSICAL THERAPY (AG) Solis Bedoya MD [address] [place] [address] Referral ID Status Reason Start Date Expiration Date Visits Requested Visits Authorized [id number] Ref Not Required PCP Requested Referral 09/10/2022 12/09/2022 1 1 Specialty Diagnoses / Procedures Referred By Contac t Referred To Contact Gastroenterology Diagnoses Hemorrhoids, unspecified hemorrhoid type Peptic ulcer disease Diarrhea, unspecified type Procedures CONSULT TO GASTROENTEROLOGY Chris Raza MD [address] [place] [address] Silvino Patel MD [address] [place] [address] Referral ID Status Reason Start Date Expiration Date Visits Requested Visits Authorized [id number] Ref Not Required PCP Requested Referral 01/15/2024 3 3 Specialty Diagnoses / Procedures Referred By Contac t Referred To Contact Gastroenterology Diagnoses Abdominal distention Procedures CONSULT TO GASTROENTEROLOGY OFFICE/OUTPATIENT NEW HIGH MDM 60 MINUTES Chris Raza MD [address] [place] [address] Referral ID Status Reason Start Date Expiration Date Visits Requested Visits Authorized [id number] Authorized PCP Requested Referral 01/03/2024 12/02/2024 1 1 Specialty Diagnoses / Procedures Referred By Contac t Referred To Contact XR IMAGING Diagnoses Chronic midline low back pain without sciatica Procedures XR LUMBAR GENERAL 3V AP/LAT/L5-S1 RADEX SPINE LUMBOSACRAL 2/3 VIEWS Chris Raza MD [address] [place] [address] [place] [address] Referral ID Status Reason Start Date Expiration Date Visits Requested Visits Authorized [id number] New Request Auto-Generat ed Referral 12/03/2023 01/01/2025 1 1 Specialty Diagnoses / Procedures Referred By Contac t Referred To Contact Diagnoses Encounter for smoking cessation counseling Procedures CONSULT TO SMOKING CESSATION Chris Raza MD [address] [place] [address] Referral ID Status Reason Start Date Expiration Date V isits Requested Visits Authorized [id number] Ref Not Required 12/03/2023 02/01/2024 1 1 Specialty Diagnoses / Procedures Referred By Contac t Referred To Contact CT IMAGING Diagnoses Smoker Encounter for screening for lung cancer Procedures CT LUNG SCREEN WO IVCON COMPUTED TOMOGRAPHY THORAX LW DOSE LNG CA SCR C- Gil, Almas Sheyne, DEVELOPMENT CHEMIST.[employer]ET[employer]OCIATE [address] [place] [address] Ct Imaging [facility] Referral ID Status Reason Start Date Expiration Date Visits Requested Visits Authorized [id number] Authorized Auto-Generat ed Referral 4 02/13/2025 1 1 Specialty Diagnoses / Procedures Referred By Contac t Referred To Contact [facility] Diagnoses Centrilobular emphysema (HCC) Procedures LUNG DIFFUSION CAPACITY (DLCO) DIFFUSING CAPACITY Almas Cordero, DEVELOPMENT CHEMIST.[employer] MARKETING ASSOCIATE [address] [place] [place] [id number] [place] [id number] Referral ID Status Reason Start Date Expiration Date Visits Requested Visits Authorized [id number] Pending Review Auto-Generat ed Referral 4 02/13/2025 1 1 Specialty Diagnoses / Procedures Referred By Contac t Referred To Contact [facility] Diagnoses Centrilobular emphysema (HCC) Procedures SPIROMETRY - BASELINE AND POST DILATOR BRNCDILAT RSPSE SPMTRY PRE&POST-BRNCDILAT ADMN Almas Cordero, DEVELOPMENT CHEMIST.[employer] MARKETING ASSOCIATE [address] [place] [address] [place] [address] Referral ID Status Reason Start Date Expiration Date Visits Requested Visits Authorized [id number] Authorized Auto-Generat ed Referral 4 04/05/2024 1 1 Specialty Diagnoses / Procedures Referred By Contac t Referred To Contact CT IMAGING Diagnoses Smoker Encounter for screening for malignant neoplasm of lung Procedures CT LUNG SCREEN WO IVCON COMPUTED TOMOGRAPHY THORAX LW DOSE LNG CA SCR Almas Canales, DEVELOPMENT CHEMIST.[employer] MARKETING ASSOCIATE [address] [place] [address] Ct Imaging [facility] Referral ID Status Reason Start Date Expiration Date Visits Requested Visits Authorized [id number] New Request Auto-Generat ed Referral 4 03/03/2025 1 1 Medications Administered Section Active Administered Medications - up to 3 most recent administrations Medication Order MAR Action Action Date Dose Rate Site fluorescein-benoxinate 0.25-0.4 % 1 Drop (FLURESS) 1 Drop, BOTH EYES, DIRECTED, Starting on Thu01/10/22 at 1400, Until 01/11/22 at 0159, Administer for applanation tonometry. In the event of a Fluress shortage, administer Tawana-Fluor 1 drop into both eyes as directed for applanation tonometry Given 01/10/2022 2:00 PM EDT 1 Drop PHENYLephrine 2.5 % 1 Drop (AK-DILATE, MARIBELL-SYNEPHRINE) 1 Drop, BOTH EYES, DIRECTED, Starting on Thu01/10/22 at 1400, Until 01/11/22 at 0159, Administer for dilation PROTECT FROM LIGHT Given 01/10/2022 2:00 PM EDT 1 Drop tropicamide 1 % 1 Drop (MYDRIACYL) 1 Drop, BOTH EYES, DIRECTED, Starting on Thu01/10/22 at 1400, Until 01/11/22 at 0159, Administer for dilation Given 01/10/2022 2:00 PM EDT 1 Drop Active Administered Medications - up to 3 most recent administrations Medication Order MAR Action Action Date Dose Rate Site PHENYLephrine 2.5 % 1 Drop (AK-DILATE, MARIBELL-SYNEPHRINE) 1 Drop, BOTH EYES, DIRECTED, Starting on Thu12/18/22 at 1330, Until Thu12/19/22 at 0129, Administer for dilation PROTECT FROM LIGHT Given 12/18/2022 1:24 PM EDT 1 Drop proparacaine 0.5 % 1 Drop (ALCAINE) 1 Drop, BOTH EYES, DIRECTED, Starting on Thu12/18/22 at 1330, Until Thu12/19/22 at 0129, Administer for pneumo tonometry, tonopen tonometry, or pachymetry. In the event of a proparacaine shortage, administer tetracaine 0.5% ophthalmic drops 1 drop in the left eye as directed for pneumo tonometry, tonopen tonometry, or pachymetry Given 12/18/2022 1:24 PM EDT 1 Drop tropicamide 1 % 1 Drop (MYDRIACYL) 1 Drop, BOTH EYES, DIRECTED, Starting on Thu12/18/22 at 1330, Until 12/19/22 at 0129, Administer for dilation Given 12/18/2022 1:24 PM EDT 1 Drop Chief Complaint and Reason for Visit Chief Complaint ANAL FISSURE Additional Source Comments INFORMATION SOURCE (unrecogn ized section and content) DATE CREATED AUTHOR 11/28/2021 [employer] DATE CREATED AUTHOR AUTHOR'S ORGANIZ ATION 01/05/2022 [facility] DATE CREATED AUTHOR [facility]IZ AT[facility] DATE CREATED AUTHOR AUTHOR'S ORGANIZ ATION 07/05/2022 [facility] DATE CREATED AUTHOR AUTHOR'S ORGANIZ ATION 04/27/2023 [facility] ([place]) DATE CREATED AUTHOR AUTHOR'S ORGANIZ ATION 01/24/2024 [facility] DATE CREATED AUTHOR AUTHOR'S ORGANIZ ATION 08/10/2024 [facility] DATE CREATED AUTHOR AUTHOR'S ORGANIZ ATION 09/01/2024 [facility] Source Comments (unrecognize d section and content) In the event this informatio n is protected by the Federal Confidentiality of Alcohol and Drug Abuse Patient Records regulations: The Federal rules restrict any use of the information to criminally investigate or prosecute any alcohol or drug abuse patient.[facility] Hospital[facility] the event this information is protected by the Federal Confidentiality of Alcohol and Drug Abuse Patient Records regulations: The Federal rules restrict any use of the information to criminally investigate or prosecute any alcohol or drug abuse patient.[facility] HospitalIn the event this information is protected by the Federal Confidentiality of Alcohol and Drug Abuse Patient Records regulations: The Federal rules restrict any use of the information to criminally investigate or prosecute any alcohol or drug abuse patient.[facility] HospitalIn the event this information is protected by the Federal Confidentiality of Alcohol and Drug Abuse Patient Records regulations: The Federal rules restrict any use of the information to criminally investigate or prosecute any alcohol or drug abuse patient.[facility] HospitalIn the event this information is protected by the Federal Confidentiality of Alcohol and Drug Abuse Patient Records regulations: The Federal rules restrict any use of the information to criminally investigate or prosecute any alcohol or drug abuse patient.[facility] HospitalIn the event this information is protected by the Federal Confidentiality of Alcohol and Drug Abuse Patient Records regulations: The Federal rules restrict any use of the information to criminally investigate or prosecute any alcohol or drug abuse patient.[facility] HospitalIn the event this information is protected by the Federal Confidentiality of Alcohol and Drug Abuse Patient Records regulations: The Federal rules restrict any use of the information to criminally investigate or prosecute any alcohol or drug abuse patient.[facility] HospitalIn the event this information is protected by the Federal Confidentiality of Alcohol and Drug Abuse Patient Records regulations: The Federal rules restrict any use of the information to criminally investigate or prosecute any alcohol or drug abuse patient.[facility] HospitalIn the event this information is protected by the Federal Confidentiality of Alcohol and Drug Abuse Patient Records regulations: The Federal rules restrict any use of the information to criminally investigate or prosecute any alcohol or drug abuse patient.[facility] HospitalIn the event this information is protected by the Federal Confidentiality of Alcohol and Drug Abuse Patient Records regulations: The Federal rules restrict any use of the information to criminally investigate or prosecute any alcohol or drug abuse patient.[facility] HospitalIn the event this information is protected by the Federal Confidentiality of Alcohol and Drug Abuse Patient Records regulations: The Federal rules restrict any use of the information to criminally investigate or prosecute any alcohol or drug abuse patient.[facility] HospitalIn the event this information is protected by the Federal Confidentiality of Alcohol and Drug Abuse Patient Records regulations: The Federal rules restrict any use of the information to criminally investigate or prosecute any alcohol or drug abuse patient.[facility] HospitalIn the event this information is protected by the Federal Confidentiality of Alcohol and Drug Abuse Patient Records regulations: The Federal rules restrict any use of the information to criminally investigate or prosecute any alcohol or drug abuse patient.[facility] HospitalIn the event this information is protected by the Federal Confidentiality of Alcohol and Drug Abuse Patient Records regulations: The Federal rules restrict any use of the information to criminally investigate or prosecute any alcohol or drug abuse patient.[facility] HospitalIn the event this information is protected by the Federal Confidentiality of Alcohol and Drug Abuse Patient Records regulations: The Federal rules restrict any use of the information to criminally investigate or prosecute any alcohol or drug abuse patient.[facility] HospitalIn the event this information is protected by the Federal Confidentiality of Alcohol and Drug Abuse Patient Records regulations: The Federal rules restrict any use of the information to criminally investigate or prosecute any alcohol or drug abuse patient.[facility] HospitalIn the event this information is protected by the Federal Confidentiality of Alcohol and Drug Abuse Patient Records regulations: The Federal rules restrict any use of the information to criminally investigate or prosecute any alcohol or drug abuse patient.[facility] HospitalIn the event this information is protected by the Federal Confidentiality of Alcohol and Drug Abuse Patient Records regulations: The Federal rules restrict any use of the information to criminally investigate or prosecute any alcohol or drug abuse patient.[facility] HospitalIn the event this information is protected by the Federal Confidentiality of Alcohol and Drug Abuse Patient Records regulations: The Federal rules restrict any use of the information to criminally investigate or prosecute any alcohol or drug abuse patient.[facility] HospitalIn the event this information is protected by the Federal Confidentiality of Alcohol and Drug Abuse Patient Records regulations: The Federal rules restrict any use of the information to criminally investigate or prosecute any alcohol or drug abuse patient.[facility] HospitalIn the event this information is protected by the Federal Confidentiality of Alcohol and Drug Abuse Patient Records regulations: The Federal rules restrict any use of the information to criminally investigate or prosecute any alcohol or drug abuse patient.[facility] HospitalIn the event this information is protected by the Federal Confidentiality of Alcohol and Drug Abuse Patient Records regulations: The Federal rules restrict any use of the information to criminally investigate or prosecute any alcohol or drug abuse patient.[facility] HospitalIn the event this information is protected by the Federal Confidentiality of Alcohol and Drug Abuse Patient Records regulations: The Federal rules restrict any use of the information to criminally investigate or prosecute any alcohol or drug abuse patient.[facility] HospitalIn the event this information is protected by the Federal Confidentiality of Alcohol and Drug Abuse Patient Records regulations: The Federal rules restrict any use of the information to criminally investigate or prosecute any alcohol or drug abuse patient.[facility] HospitalIn the event this information is protected by the Federal Confidentiality of Alcohol and Drug Abuse Patient Records regulations: The Federal rules restrict any use of the information to criminally investigate or prosecute any alcohol or drug abuse patient.[facility] HospitalIn the event this information is protected by the Federal Confidentiality of Alcohol and Drug Abuse Patient Records regulations: The Federal rules restrict any use of the information to criminally investigate or prosecute any alcohol or drug abuse patient.[facility] HospitalIn the event this information is protected by the Federal Confidentiality of Alcohol and Drug Abuse Patient Records regulations: The Federal rules restrict any use of the information to criminally investigate or prosecute any alcohol or drug abuse patient.[facility] HospitalIn the event this information is protected by the Federal Confidentiality of Alcohol and Drug Abuse Patient Records regulations: The Federal rules restrict any use of the information to criminally investigate or prosecute any alcohol or drug abuse patient.[facility] HospitalIn the event this information is protected by the Federal Confidentiality of Alcohol and Drug Abuse Patient Records regulations: The Federal rules restrict any use of the information to criminally investigate or prosecute any alcohol or drug abuse patient.[facility] HospitalIn the event this information is protected by the Federal Confidentiality of Alcohol and Drug Abuse Patient Records regulations: The Federal rules restrict any use of the information to criminally investigate or prosecute any alcohol or drug abuse patient.[facility] HospitalIn the event this information is protected by the Federal Confidentiality of Alcohol and Drug Abuse Patient Records regulations: The Federal rules restrict any use of the information to criminally investigate or prosecute any alcohol or drug abuse patient.[facility] HospitalIn the event this information is protected by the Federal Confidentiality of Alcohol and Drug Abuse Patient Records regulations: The Federal rules restrict any use of the information to criminally investigate or prosecute any alcohol or drug abuse patient.[facility] HospitalIn the event this information is protected by the Federal Confidentiality of Alcohol and Drug Abuse Patient Records regulations: The Federal rules restrict any use of the information to criminally investigate or prosecute any alcohol or drug abuse patient.[facility] HospitalIn the event this information is protected by the Federal Confidentiality of Alcohol and Drug Abuse Patient Records regulations: The Federal rules restrict any use of the information to criminally investigate or prosecute any alcohol or drug abuse patient.[facility] HospitalIn the event this information is protected by the Federal Confidentiality of Alcohol and Drug Abuse Patient Records regulations: The Federal rules restrict any use of the information to criminally investigate or prosecute any alcohol or drug abuse patient.[facility] HospitalIn the event this information is protected by the Federal Confidentiality of Alcohol and Drug Abuse Patient Records regulations: The Federal rules restrict any use of the information to criminally investigate or prosecute any alcohol or drug abuse patient.[facility] HospitalIn the event this information is protected by the Federal Confidentiality of Alcohol and Drug Abuse Patient Records regulations: The Federal rules restrict any use of the information to criminally investigate or prosecute any alcohol or drug abuse patient.[facility] HospitalIn the event this information is protected by the Federal Confidentiality of Alcohol and Drug Abuse Patient Records regulations: The Federal rules restrict any use of the information to criminally investigate or prosecute any alcohol or drug abuse patient.[facility] HospitalIn the event this information is protected by the Federal Confidentiality of Alcohol and Drug Abuse Patient Records regulations: The Federal rules restrict any use of the information to criminally investigate or prosecute any alcohol or drug abuse patient.[facility] HospitalIn the event this information is protected by the Federal Confidentiality of Alcohol and Drug Abuse Patient Records regulations: The Federal rules restrict any use of the information to criminally investigate or prosecute any alcohol or drug abuse patient.[facility] HospitalIn the event this information is protected by the Federal Confidentiality of Alcohol and Drug Abuse Patient Records regulations: The Federal rules restrict any use of the information to criminally investigate or prosecute any alcohol or drug abuse patient.[facility] HospitalIn the event this information is protected by the Federal Confidentiality of Alcohol and Drug Abuse Patient Records regulations: The Federal rules restrict any use of the information to criminally investigate or prosecute any alcohol or drug abuse patient.[facility] HospitalIn the event this information is protected by the Federal Confidentiality of Alcohol and Drug Abuse Patient Records regulations: The Federal rules restrict any use of the information to criminally investigate or prosecute any alcohol or drug abuse patient.[facility] HospitalIn the event this information is protected by the Federal Confidentiality of Alcohol and Drug Abuse Patient Records regulations: The Federal rules restrict any use of the information to criminally investigate or prosecute any alcohol or drug abuse patient.[facility] HospitalIn the event this information is protected by the Federal Confidentiality of Alcohol and Drug Abuse Patient Records regulations: The Federal rules restrict any use of the information to criminally investigate or prosecute any alcohol or drug abuse patient.[facility] HospitalIn the event this information is protected by the Federal Confidentiality of Alcohol and Drug Abuse Patient Records regulations: The Federal rules restrict any use of the information to criminally investigate or prosecute any alcohol or drug abuse patient.[facility] HospitalIn the event this information is protected by the Federal Confidentiality of Alcohol and Drug Abuse Patient Records regulations: The Federal rules restrict any use of the information to criminally investigate or prosecute any alcohol or drug abuse patient.[facility] HospitalIn the event this information is protected by the Federal Confidentiality of Alcohol and Drug Abuse Patient Records regulations: The Federal rules restrict any use of the information to criminally investigate or prosecute any alcohol or drug abuse patient.[facility] HospitalIn the event this information is protected by the Federal Confidentiality of Alcohol and Drug Abuse Patient Records regulations: The Federal rules restrict any use of the information to criminally investigate or prosecute any alcohol or drug abuse patient.[facility] HospitalIn the event this information is protected by the Federal Confidentiality of Alcohol and Drug Abuse Patient Records regulations: The Federal rules restrict any use of the information to criminally investigate or prosecute any alcohol or drug abuse patient.[facility] HospitalIn the event this information is protected by the Federal Confidentiality of Alcohol and Drug Abuse Patient Records regulations: The Federal rules restrict any use of the information to criminally investigate or prosecute any alcohol or drug abuse patient.[facility] HospitalIn the event this information is protected by the Federal Confidentiality of Alcohol and Drug Abuse Patient Records regulations: The Federal rules restrict any use of the information to criminally investigate or prosecute any alcohol or drug abuse patient.[facility] HospitalIn the event this information is protected by the Federal Confidentiality of Alcohol and Drug Abuse Patient Records regulations: The Federal rules restrict any use of the information to criminally investigate or prosecute any alcohol or drug abuse patient.[facility] HospitalIn the event this information is protected by the Federal Confidentiality of Alcohol and Drug Abuse Patient Records regulations: The Federal rules restrict any use of the information to criminally investigate or prosecute any alcohol or drug abuse patient.[facility] HospitalIn the event this information is protected by the Federal Confidentiality of Alcohol and Drug Abuse Patient Records regulations: The Federal rules restrict any use of the information to criminally investigate or prosecute any alcohol or drug abuse patient.[facility] HospitalIn the event this information is protected by the Federal Confidentiality of Alcohol and Drug Abuse Patient Records regulations: The Federal rules restrict any use of the information to criminally investigate or prosecute any alcohol or drug abuse patient.[facility] HospitalIn the event this information is protected by the Federal Confidentiality of Alcohol and Drug Abuse Patient Records regulations: The Federal rules restrict any use of the information to criminally investigate or prosecute any alcohol or drug abuse patient.[facility] HospitalIn the event this information is protected by the Federal Confidentiality of Alcohol and Drug Abuse Patient Records regulations: The Federal rules restrict any use of the information to criminally investigate or prosecute any alcohol or drug abuse patient.[facility] HospitalIn the event this information is protected by the Federal Confidentiality of Alcohol and Drug Abuse Patient Records regulations: The Federal rules restrict any use of the information to criminally investigate or prosecute any alcohol or drug abuse patient.[facility] HospitalIn the event this information is protected by the Federal Confidentiality of Alcohol and Drug Abuse Patient Records regulations: The Federal rules restrict any use of the information to criminally investigate or prosecute any alcohol or drug abuse patient.[facility] HospitalIn the event this information is protected by the Federal Confidentiality of Alcohol and Drug Abuse Patient Records regulations: The Federal rules restrict any use of the information to criminally investigate or prosecute any alcohol or drug abuse patient.[facility] HospitalIn the event this information is protected by the Federal Confidentiality of Alcohol and Drug Abuse Patient Records regulations: The Federal rules restrict any use of the information to criminally investigate or prosecute any alcohol or drug abuse patient.[facility] HospitalIn the event this information is protected by the Federal Confidentiality of Alcohol and Drug Abuse Patient Records regulations: The Federal rules restrict any use of the information to criminally investigate or prosecute any alcohol or drug abuse patient.[facility] HospitalIn the event this information is protected by the Federal Confidentiality of Alcohol and Drug Abuse Patient Records regulations: The Federal rules restrict any use of the information to criminally investigate or prosecute any alcohol or drug abuse patient.[facility] HospitalIn the event this information is protected by the Federal Confidentiality of Alcohol and Drug Abuse Patient Records regulations: The Federal rules restrict any use of the information to criminally investigate or prosecute any alcohol or drug abuse patient.[facility] HospitalIn the event this information is protected by the Federal Confidentiality of Alcohol and Drug Abuse Patient Records regulations: The Federal rules restrict any use of the information to criminally investigate or prosecute any alcohol or drug abuse patient.[facility] HospitalIn the event this information is protected by the Federal Confidentiality of Alcohol and Drug Abuse Patient Records regulations: The Federal rules restrict any use of the information to criminally investigate or prosecute any alcohol or drug abuse patient.[facility] HospitalIn the event this information is protected by the Federal Confidentiality of Alcohol and Drug Abuse Patient Records regulations: The Federal rules restrict any use of the information to criminally investigate or prosecute any alcohol or drug abuse patient.[facility] HospitalIn the event this information is protected by the Federal Confidentiality of Alcohol and Drug Abuse Patient Records regulations: The Federal rules restrict any use of the information to criminally investigate or prosecute any alcohol or drug abuse patient.[facility] HospitalIn the event this information is protected by the Federal Confidentiality of Alcohol and Drug Abuse Patient Records regulations: The Federal rules restrict any use of the information to criminally investigate or prosecute any alcohol or drug abuse patient.[facility] HospitalIn the event this information is protected by the Federal Confidentiality of Alcohol and Drug Abuse Patient Records regulations: The Federal rules restrict any use of the information to criminally investigate or prosecute any alcohol or drug abuse patient.[facility] HospitalIn the event this information is protected by the Federal Confidentiality of Alcohol and Drug Abuse Patient Records regulations: The Federal rules restrict any use of the information to criminally investigate or prosecute any alcohol or drug abuse patient.[facility] HospitalIn the event this information is protected by the Federal Confidentiality of Alcohol and Drug Abuse Patient Records regulations: The Federal rules restrict any use of the information to criminally investigate or prosecute any alcohol or drug abuse patient.[facility] HospitalIn the event this information is protected by the Federal Confidentiality of Alcohol and Drug Abuse Patient Records regulations: The Federal rules restrict any use of the information to criminally investigate or prosecute any alcohol or drug abuse patient.[facility] HospitalIn the event this information is protected by the Federal Confidentiality of Alcohol and Drug Abuse Patient Records regulations: The Federal rules restrict any use of the information to criminally investigate or prosecute any alcohol or drug abuse patient.[facility] HospitalIn the event this information is protected by the Federal Confidentiality of Alcohol and Drug Abuse Patient Records regulations: The Federal rules restrict any use of the information to criminally investigate or prosecute any alcohol or drug abuse patient.[facility] HospitalIn the event this information is protected by the Federal Confidentiality of Alcohol and Drug Abuse Patient Records regulations: The Federal rules restrict any use of the information to criminally investigate or prosecute any alcohol or drug abuse patient.[facility] HospitalIn the event this information is protected by the Federal Confidentiality of Alcohol and Drug Abuse Patient Records regulations: The Federal rules restrict any use of the information to criminally investigate or prosecute any alcohol or drug abuse patient.[facility] HospitalIn the event this information is protected by the Federal Confidentiality of Alcohol and Drug Abuse Patient Records regulations: The Federal rules restrict any use of the information to criminally investigate or prosecute any alcohol or drug abuse patient.[facility] HospitalIn the event this information is protected by the Federal Confidentiality of Alcohol and Drug Abuse Patient Records regulations: The Federal rules restrict any use of the information to criminally investigate or prosecute any alcohol or drug abuse patient.[facility] HospitalIn the event this information is protected by the Federal Confidentiality of Alcohol and Drug Abuse Patient Records regulations: The Federal rules restrict any use of the information to criminally investigate or prosecute any alcohol or drug abuse patient.[facility] HospitalIn the event this information is protected by the Federal Confidentiality of Alcohol and Drug Abuse Patient Records regulations: The Federal rules restrict any use of the information to criminally investigate or prosecute any alcohol or drug abuse patient.[facility] HospitalIn the event this information is protected by the Federal Confidentiality of Alcohol and Drug Abuse Patient Records regulations: The Federal rules restrict any use of the information to criminally investigate or prosecute any alcohol or drug abuse patient.[facility] HospitalIn the event this information is protected by the Federal Confidentiality of Alcohol and Drug Abuse Patient Records regulations: The Federal rules restrict any use of the information to criminally investigate or prosecute any alcohol or drug abuse patient.[facility] HospitalIn the event this information is protected by the Federal Confidentiality of Alcohol and Drug Abuse Patient Records regulations: The Federal rules restrict any use of the information to criminally investigate or prosecute any alcohol or drug abuse patient.[facility] HospitalIn the event this information is protected by the Federal Confidentiality of Alcohol and Drug Abuse Patient Records regulations: The Federal rules restrict any use of the information to criminally investigate or prosecute any alcohol or drug abuse patient.[facility] HospitalIn the event this information is protected by the Federal Confidentiality of Alcohol and Drug Abuse Patient Records regulations: The Federal rules restrict any use of the information to criminally investigate or prosecute any alcohol or drug abuse patient.[facility] HospitalIn the event this information is protected by the Federal Confidentiality of Alcohol and Drug Abuse Patient Records regulations: The Federal rules restrict any use of the information to criminally investigate or prosecute any alcohol or drug abuse patient.[facility] HospitalIn the event this information is protected by the Federal Confidentiality of Alcohol and Drug Abuse Patient Records regulations: The Federal rules restrict any use of the information to criminally investigate or prosecute any alcohol or drug abuse patient.[facility] HospitalIn the event this information is protected by the Federal Confidentiality of Alcohol and Drug Abuse Patient Records regulations: The Federal rules restrict any use of the information to criminally investigate or prosecute any alcohol or drug abuse patient.[facility] HospitalIn the event this information is protected by the Federal Confidentiality of Alcohol and Drug Abuse Patient Records regulations: The Federal rules restrict any use of the information to criminally investigate or prosecute any alcohol or drug abuse patient.[facility] HospitalIn the event this information is protected by the Federal Confidentiality of Alcohol and Drug Abuse Patient Records regulations: The Federal rules restrict any use of the information to criminally investigate or prosecute any alcohol or drug abuse patient.[facility] HospitalIn the event this information is protected by the Federal Confidentiality of Alcohol and Drug Abuse Patient Records regulations: The Federal rules restrict any use of the information to criminally investigate or prosecute any alcohol or drug abuse patient.[facility] HospitalIn the event this information is protected by the Federal Confidentiality of Alcohol and Drug Abuse Patient Records regulations: The Federal rules restrict any use of the information to criminally investigate or prosecute any alcohol or drug abuse patient.[facility] HospitalIn the event this information is protected by the Federal Confidentiality of Alcohol and Drug Abuse Patient Records regulations: The Federal rules restrict any use of the information to criminally investigate or prosecute any alcohol or drug abuse patient.[facility] HospitalIn the event this information is protected by the Federal Confidentiality of Alcohol and Drug Abuse Patient Records regulations: The Federal rules restrict any use of the information to criminally investigate or prosecute any alcohol or drug abuse patient.[facility] HospitalIn the event this information is protected by the Federal Confidentiality of Alcohol and Drug Abuse Patient Records regulations: The Federal rules restrict any use of the information to criminally investigate or prosecute any alcohol or drug abuse patient.[facility] HospitalIn the event this information is protected by the Federal Confidentiality of Alcohol and Drug Abuse Patient Records regulations: The Federal rules restrict any use of the information to criminally investigate or prosecute any alcohol or drug abuse patient.[facility] HospitalIn the event this information is protected by the Federal Confidentiality of Alcohol and Drug Abuse Patient Records regulations: The Federal rules restrict any use of the information to criminally investigate or prosecute any alcohol or drug abuse patient.[facility] HospitalIn the event this information is protected by the Federal Confidentiality of Alcohol and Drug Abuse Patient Records regulations: The Federal rules restrict any use of the information to criminally investigate or prosecute any alcohol or drug abuse patient.[facility] HospitalIn the event this information is protected by the Federal Confidentiality of Alcohol and Drug Abuse Patient Records regulations: The Federal rules restrict any use of the information to criminally investigate or prosecute any alcohol or drug abuse patient.[facility] HospitalIn the event this information is protected by the Federal Confidentiality of Alcohol and Drug Abuse Patient Records regulations: The Federal rules restrict any use of the information to criminally investigate or prosecute any alcohol or drug abuse patient.[facility] HospitalIn the event this information is protected by the Federal Confidentiality of Alcohol and Drug Abuse Patient Records regulations: The Federal rules restrict any use of the information to criminally investigate or prosecute any alcohol or drug abuse patient.[facility] HospitalIn the event this information is protected by the Federal Confidentiality of Alcohol and Drug Abuse Patient Records regulations: The Federal rules restrict any use of the information to criminally investigate or prosecute any alcohol or drug abuse patient.[facility] HospitalIn the event this information is protected by the Federal Confidentiality of Alcohol and Drug Abuse Patient Records regulations: The Federal rules restrict any use of the information to criminally investigate or prosecute any alcohol or drug abuse patient.[facility] HospitalIn the event this information is protected by the Federal Confidentiality of Alcohol and Drug Abuse Patient Records regulations: The Federal rules restrict any use of the information to criminally investigate or prosecute any alcohol or drug abuse patient.[facility] HospitalIn the event this information is protected by the Federal Confidentiality of Alcohol and Drug Abuse Patient Records regulations: The Federal rules restrict any use of the information to criminally investigate or prosecute any alcohol or drug abuse patient.[facility] HospitalIn the event this information is protected by the Federal Confidentiality of Alcohol and Drug Abuse Patient Records regulations: The Federal rules restrict any use of the information to criminally investigate or prosecute any alcohol or drug abuse patient.[facility] HospitalIn the event this information is protected by the Federal Confidentiality of Alcohol and Drug Abuse Patient Records regulations: The Federal rules restrict any use of the information to criminally investigate or prosecute any alcohol or drug abuse patient.[facility] HospitalIn the event this information is protected by the Federal Confidentiality of Alcohol and Drug Abuse Patient Records regulations: The Federal rules restrict any use of the information to criminally investigate or prosecute any alcohol or drug abuse patient.[facility] HospitalIn the event this information is protected by the Federal Confidentiality of Alcohol and Drug Abuse Patient Records regulations: The Federal rules restrict any use of the information to criminally investigate or prosecute any alcohol or drug abuse patient.[facility] HospitalIn the event this information is protected by the Federal Confidentiality of Alcohol and Drug Abuse Patient Records regulations: The Federal rules restrict any use of the information to criminally investigate or prosecute any alcohol or drug abuse patient.[facility] HospitalIn the event this information is protected by the Federal Confidentiality of Alcohol and Drug Abuse Patient Records regulations: The Federal rules restrict any use of the information to criminally investigate or prosecute any alcohol or drug abuse patient.[facility] HospitalIn the event this information is protected by the Federal Confidentiality of Alcohol and Drug Abuse Patient Records regulations: The Federal rules restrict any use of the information to criminally investigate or prosecute any alcohol or drug abuse patient.[facility] HospitalIn the event this information is protected by the Federal Confidentiality of Alcohol and Drug Abuse Patient Records regulations: The Federal rules restrict any use of the information to criminally investigate or prosecute any alcohol or drug abuse patient.[facility] HospitalIn the event this information is protected by the Federal Confidentiality of Alcohol and Drug Abuse Patient Records regulations: The Federal rules restrict any use of the information to criminally investigate or prosecute any alcohol or drug abuse patient.[facility] HospitalIn the event this information is protected by the Federal Confidentiality of Alcohol and Drug Abuse Patient Records regulations: The Federal rules restrict any use of the information to criminally investigate or prosecute any alcohol or drug abuse patient.[facility] HospitalIn the event this information is protected by the Federal Confidentiality of Alcohol and Drug Abuse Patient Records regulations: The Federal rules restrict any use of the information to criminally investigate or prosecute any alcohol or drug abuse patient.[facility] HospitalIn the event this information is protected by the Federal Confidentiality of Alcohol and Drug Abuse Patient Records regulations: The Federal rules restrict any use of the information to criminally investigate or prosecute any alcohol or drug abuse patient.[facility] HospitalIn the event this information is protected by the Federal Confidentiality of Alcohol and Drug Abuse Patient Records regulations: The Federal rules restrict any use of the information to criminally investigate or prosecute any alcohol or drug abuse patient.[facility] HospitalIn the event this information is protected by the Federal Confidentiality of Alcohol and Drug Abuse Patient Records regulations: The Federal rules restrict any use of the information to criminally investigate or prosecute any alcohol or drug abuse patient.[facility] HospitalIn the event this information is protected by the Federal Confidentiality of Alcohol and Drug Abuse Patient Records regulations: The Federal rules restrict any use of the information to criminally investigate or prosecute any alcohol or drug abuse patient.[facility] HospitalIn the event this information is protected by the Federal Confidentiality of Alcohol and Drug Abuse Patient Records regulations: The Federal rules restrict any use of the information to criminally investigate or prosecute any alcohol or drug abuse patient.[facility] HospitalIn the event this information is protected by the Federal Confidentiality of Alcohol and Drug Abuse Patient Records regulations: The Federal rules restrict any use of the information to criminally investigate or prosecute any alcohol or drug abuse patient.[facility] HospitalIn the event this information is protected by the Federal Confidentiality of Alcohol and Drug Abuse Patient Records regulations: The Federal rules restrict any use of the information to criminally investigate or prosecute any alcohol or drug abuse patient.[facility] HospitalIn the event this information is protected by the Federal Confidentiality of Alcohol and Drug Abuse Patient Records regulations: The Federal rules restrict any use of the information to criminally investigate or prosecute any alcohol or drug abuse patient.[facility] HospitalIn the event this information is protected by the Federal Confidentiality of Alcohol and Drug Abuse Patient Records regulations: The Federal rules restrict any use of the information to criminally investigate or prosecute any alcohol or drug abuse patient.[facility] HospitalIn the event this information is protected by the Federal Confidentiality of Alcohol and Drug Abuse Patient Records regulations: The Federal rules restrict any use of the information to criminally investigate or prosecute any alcohol or drug abuse patient.[facility] HospitalIn the event this information is protected by the Federal Confidentiality of Alcohol and Drug Abuse Patient Records regulations: The Federal rules restrict any use of the information to criminally investigate or prosecute any alcohol or drug abuse patient.[facility] HospitalIn the event this information is protected by the Federal Confidentiality of Alcohol and Drug Abuse Patient Records regulations: The Federal rules restrict any use of the information to criminally investigate or prosecute any alcohol or drug abuse patient.[facility] HospitalIn the event this information is protected by the Federal Confidentiality of Alcohol and Drug Abuse Patient Records regulations: The Federal rules restrict any use of the information to criminally investigate or prosecute any alcohol or drug abuse patient.[facility] HospitalIn the event this information is protected by the Federal Confidentiality of Alcohol and Drug Abuse Patient Records regulations: The Federal rules restrict any use of the information to criminally investigate or prosecute any alcohol or drug abuse patient.[facility] HospitalIn the event this information is protected by the Federal Confidentiality of Alcohol and Drug Abuse Patient Records regulations: The Federal rules restrict any use of the information to criminally investigate or prosecute any alcohol or drug abuse patient.[facility] HospitalIn the event this information is protected by the Federal Confidentiality of Alcohol and Drug Abuse Patient Records regulations: The Federal rules restrict any use of the information to criminally investigate or prosecute any alcohol or drug abuse patient.[facility] HospitalIn the event this information is protected by the Federal Confidentiality of Alcohol and Drug Abuse Patient Records regulations: The Federal rules restrict any use of the information to criminally investigate or prosecute any alcohol or drug abuse patient.[facility] HospitalIn the event this information is protected by the Federal Confidentiality of Alcohol and Drug Abuse Patient Records regulations: The Federal rules restrict any use of the information to criminally investigate or prosecute any alcohol or drug abuse patient.[facility] HospitalIn the event this information is protected by the Federal Confidentiality of Alcohol and Drug Abuse Patient Records regulations: The Federal rules restrict any use of the information to criminally investigate or prosecute any alcohol or drug abuse patient.[facility] HospitalIn the event this information is protected by the Federal Confidentiality of Alcohol and Drug Abuse Patient Records regulations: The Federal rules restrict any use of the information to criminally investigate or prosecute any alcohol or drug abuse patient.[facility] HospitalIn the event this information is protected by the Federal Confidentiality of Alcohol and Drug Abuse Patient Records regulations: The Federal rules restrict any use of the information to criminally investigate or prosecute any alcohol or drug abuse patient.[facility] Reason for Visit (unrecogniz ed section and content) Reason Comments Establish Care Reason Onset Date Comments Results 12/25/2021 Reason Comments Symptoms Reason Comments Follow Up Abdomen pain/swellin g Reason Comments Medication Problem Reason Comments Insurance Authorization [employer]- initiated Reason Comments Prediabetes Recently diagnosed Specialty Diagnoses / Procedures Referred By Contac t Referred To Contact [facility] Department Diagnoses Eye Exam ([employer] Medicare / Medicaid) Procedures 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/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 NEW HIGH MDM 60-74 MINUTES NEW ADULT Sánchez Heard II, OD [address] [place] [address] [facility] Dept Referral ID Status Reason Start Date Expiration Date Visits Re quested Visits Authorized [id number] Closed 12/31/2021 12/31/2022 1 1 Reason Comments Refill Request Reason Comments No Show Reason Comments Refill Request glimepiride (AMARYL) NEW MAIL ORDER Reason Comments Rx Refills All medications Reason Comments Medication Problem Approve glimepiride (AMARYL) with pharmacy Reason Comments Referral Information Obesity Medicine Reason Comments Internal Referrals/resources PCP ref int o program 1st call spoke to PT wasn't sure which program would want to enroll into. PT did however, explain that she doesn't want to take more medication. PT advised would callback after speak with her mom. Reason Comments Orders labs Reason Comments Results A1C Reason Onset Date Comments Results 04/02/2022 Reason Onset Date Comments Refill Request 04/09/2022 Bumetanide, Glim erpiride, Hydroxyzine Reason Onset Date Comments Refill Request 04/28/2022 bumrtsanide Reason Onset Date Comments Refill Request 04/28/2022 hydroxyz HCL Reason Onset Date Comments Refill Request 05/08/2022 new mailorder RX 's Reason Onset Date Comments Refill Request 05/12/2022 bumex Reason Comments New Patient Evaluation Specialty Diagnoses / Procedures Referred By Goldie jackson Referred To Contact Family Medicine / GENERAL SURGERY Diagnoses Follow-up exam NEW PATIENT Procedures OFFICE/OUTPATIENT ESTABLISHED MOD MDM 30-39 MIN OFFICE/OUTPATIENT NEW MODERATE MDM 45-59 MINUTES NEW PATIENT Solis Bedoya MD [address] [place] [address] Elsa Kerr MD [address] [place] [address] Referral ID Status Reason Start Date Expiration Date Visits Re quested Visits Authorized [id number] Closed 04/06/2022 05/12/2022 1 1 Reason Onset Date Comments Refill Request 05/19/2022 Hydroxyzine Reason Comments Diabetes Specialty Diagnoses / Procedures Referred By Goldie jackson Referred To Contact [facility] / [facility] Diagnoses Type 2 diabetes mellitus without complication, without long-term current use of insulin (HCC) Procedures CONSULT TO ENDOCRINOLOGY OFFICE/OUTPATIENT NEW HIGH MDM 60-74 MINUTES OFFICE/OUTPATIENT ESTABLISHED MOD MDM 30-39 MIN Solis Bedoya MD [address] [place] [address] Endocrin[facility] [place] [address] [id number] Referral ID Status Reason Start Date Expiration Date V isits Requested Visits Authorized [id number] Closed PCP Requested Referral 04/06/2022 04/05/2023 1 1 Reason Comments Follow Up Right knee pain Sty on eye Specialty Diagnoses / Procedures Referred By Contac t Referred To Contact Internal Medicine / INTERNAL MEDICINE Diagnoses 2 MONTH FOLLOW UP Procedures OFFICE/OUTPATIENT ESTABLISHED MOD MDM 30-39 MIN 4C EST Solis Bedoya MD [address] [place] [address] Marvel Sam DO [address] [place] [address] Referral ID Status Reason Start Date Expiration Date Visits Re quested Visits Authorized [id number] Closed 04/06/2022 04/05/2023 1 1 Reason Comments Medication Authorization Mounjaro Reason Comments Patient Question Reason Comments New Patient Annual Specialty Diagnoses / Procedures Referred By Contac t Referred To Contact Obstetrics / 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 Procedures OFFICE/OUTPATIENT NEW MODERATE MDM 45-59 MINUTES NEW PATIENT Self Cara Lujan DO [address] [place] [address] Referral ID Status Reason Start Date Expiration Date Visits Re quested Visits Authorized [id number] Closed 04/06/2022 09/07/2022 1 1 Reason Comments Established Patient Specialty Diagnoses / Procedures Referred By Contac t Referred To Contact Family Medicine / GENERAL SURGERY Diagnoses Follow-up exam 1 Mo F/U Procedures OFFICE/OUTPATIENT ESTABLISHED MOD MDM 30-39 MIN EST PATIENT Solis Bedoya MD [address] [place] [address] Elsa Kerr MD [address] [place] [address] Referral ID Status Reason Start Date Expiration Date Visits Re quested Visits Authorized [id number] Closed 04/06/2022 09/07/2022 1 1 Reason Comments Orders Reason Onset Date Comments Refill Request 06/24/2022 Reason Onset Date Comments Refill Request 06/24/2022 Bumetanide Specialty Diagnoses / Procedures Referred By [facility] t Referred To Contact Family Medicine / GENERAL SURGERY Diagnoses F/U- per Procedures OFFICE/OUTPATIENT ESTABLISHED MOD MDM 30-39 MIN EST PATIENT Solis Bedoya MD [address] [place] [address] Elsa Kerr MD [address] [place] [address] Referral ID Status Reason Start Date Expiration Date Visits Re quested Visits Authorized [id number] Closed 04/06/2022 04/05/2023 1 1 Reason Comments PT Eval Specialty Diagnoses / Procedures [facility]erred To Contact PHYSICAL THERAPY Diagnoses Disorder of right rotator cuff Procedures CONSULT TO PHYSICAL THERAPY (AG) Marvel Sam DO Pt [facility] [address] [place] [address] Referral ID Status Reason Start Date Expiration Date Visits Requested Visits Authorized [id number] Outside PCP PCP Requested Referral 05/22/2022 08/20/2022 1 1 Reason Onset Date Comments Refill Request 06/30/2022 multiple medicat ions Reason Comments unable to schedule screening colonoscopy Reason Comments PSG Check In Reason Comments Psg Check In (Adult) Reason Onset Date Comments Refill Request 07/16/2022 crestor Reason Onset Date Comments Results 08/04/2022 Reason Onset Date Comments Refill Request 08/11/2022 Reason Comments Orders Patient request R ar m xray Reason Onset Date Comments Refill Request 08/17/2022 trelegy Reason Onset Date Comments Refill Request 08/18/2022 Reason Onset Date Comments Refill Request 08/17/2022 Reason Onset Date Comments Refill Request 09/09/2022 hydroxyzine Reason Comments Results Reason Comments Polysomnogram Reason Comments Follow Up Specialty Diagnoses / Procedures [facility] Referred To Contact Family Medicine / GENERAL SURGERY Diagnoses Return in about 9 weeks (around 09/01/2022) for med follow up Procedures OFFICE/OUTPATIENT ESTABLISHED MOD MDM 30-39 MIN EST PATIENT Elsa Kerr MD [address] [place] [address] Elsa Kerr MD [address] [place] [address] Referral ID Status Reason Start Date Expiration Date Visits Re quested Visits Authorized [id number] Closed 08/06/2022 08/07/2023 1 1 Reason Onset Date Comments Refill Request 10/20/2022 Reason Onset Date Comments Refill Request 10/31/2022 Reason Onset Date Comments Refill Request 11/10/2022 bumetanide Reason Onset Date Comments Refill Request 11/10/2022 albuterol Reason Onset Date Comments Refill Request 11/11/2022 Reason Onset Date Comments Refill Request 11/10/2022 Reason Onset Date Comments Refill Request 11/24/2022 Reason Comments Non-insulin Dependent Diabetes Mellitus Reason Comments F/U 3 months Reason Onset Date Comments Refill Request 12/08/2022 alcohol swabs, l ancets, test strips Reason Onset Date Comments Refill Request 12/08/2022 Reason Comments Referral Information Consult to optometr y Reason Comments Referral Information Consult to physical therapy Reason Comments Diabetic Eye Exam Type 2 NIDDM Specialty Diagnoses / Procedures Referred By Contac t Referred To Contact Optometry Diagnoses Controlled type 2 diabetes mellitus without complication, without long-term current use of insulin (HCC) Procedures CONSULT TO OPTOMETRY OFFICE/OUTPATIENT NEW HIGH MDM 60-74 MINUTES Chris Raza MD [address] [place] [address] Referral ID Status Reason Start Date Expiration Date Visits Requested Visits Authorized [id number] Pending Review PCP Requested Referral 12/16/2022 12/16/2023 1 1 Reason Comments Appointment Friday 12/22 Reason Comments Insurance Authorization Reason Comments Results Reason Comments Referral Request Gastroenterology Reason Comments Refill Request Ozempic Reason Comments Blood Pressure Lowering with weight loss Reason Onset Date Comments Refill Request 01/19/2023 Reason Onset Date Comments Refill Request 09/04/2022 Reason Onset Date Comments Refill Request 01/29/2023 Reason Comments Records Reason Onset Date Comments Refill Request 02/23/2023 Reason Onset Date Comments Refill Request 05/08/2023 albuterol Reason Comments Patient Update BPs Reason Onset Date Comments Refill Request 07/23/2022 bumex Refill Request 05/15/2023 Reason Comments Follow Up Injections Reason Comments Consult Specialty Diagnoses / Procedures Referred By Goldie jackson Referred To Contact Diagnoses Tobacco abuse Procedures CONSULT TO SMOKING CESSATION Chris Raza MD [address] [place] [address] Referral ID Status Reason Start Date Expiration Date V isits Requested Visits Authorized [id number] Ref Not Required 04/29/2023 06/28/2023 1 1 Reason Comments Patient Update Reason Comments Established Patient Reason Onset Date Comments Refill Request 08/03/2023 Reason Onset Date Comments Refill Request 08/03/2023 Rosuvastatin, mo ntelukast Reason Comments Follow Up Reason Onset Date Comments Refill Request 08/21/2023 Multiple Reason Onset Date Comments Refill Request 08/28/2023 Reason Onset Date Comments Results 09/04/2023 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 Reason Comments New Patient LCS Reason Comments Follow Up 14 weeks post visit OA right knee with i njection given Reason Onset Date Comments Refill Request 09/28/2023 Albuterol inhale BumetanideHydroxyzinevalsartan Reason Onset Date Comments Refill Request 11/23/2023 Trelegy Reason Comments Established Patient Follow Up Reason Comments Follow Up Reason Comments Referral Request Gastroenterolgy Reason Comments Follow Up 2 weeks post visit with BP OA right knee Wants cortisone injection Reason Onset Date Comments Refill Request 12/17/2023 Reason Onset Date Comments Refill Request 12/28/2023 esomeprazole Reason Comments Returning Patient's Call Reason Comments Diabetes Narrow Angle Glaucoma Evaluation Dry Eye(s) Both Eyes Reason Comments Established Patient 15 weeks post inject ion Injections 15 weeks post inject ion Reason Comments LCS Reason Onset Date Comments Refill Request 01/20/2024 Reason Comments Patient Question Lab results Reason Comments Spirometry Specialty Diagnoses / Procedures Referred By Goldie jackson Referred To Contact [facility] Diagnoses Centrilobular emphysema (HCC) Procedures SPIROMETRY - BASELINE AND POST DILATOR BRNCDILAT RSPSE SPMTRY PRE&POST-BRNCDILAT ADMN Almas Cordero, DEVELOPMENT CHEMIST.FIELD MARKETING ASSOCIATE [address] [place] [address] Res[facility] [address] [place] [address] Referral ID Status Reason Start Date Expiration Date V isits Requested Visits Authorized [id number] Closed Auto-Generate d Referral 01/15/2024 04/05/2024 1 1 Specialty Diagnoses / Procedures Referred By Contac t Referred To Contact [facility] Diagnoses Centrilobular emphysema (HCC) Procedures LUNG DIFFUSION CAPACITY (DLCO) DIFFUSING CAPACITY Almas Cordero, DEVELOPMENT CHEMIST.FIELD MARKETING ASSOCIATE [address] [place] [address] Res[facility] [address] [place] [address] Referral ID Status Reason Start Date Expiration Date V isits Requested Visits Authorized [id number] Closed Auto-Generate d Referral 04/06/2023 04/05/2024 [address] Specialty Diagnoses / Procedures Referred By Contac t Referred To Contact CT IMAGING Diagnoses Smoker Encounter for screening for lung cancer Procedures CT LUNG SCREEN WO IVCON COMPUTED TOMOGRAPHY THORAX LW DOSE LNG CA SCR C- Almas Cordero, DEVELOPMENT CHEMIST.FIELD MARKETING ASSOCIATE [address] [place] [address] [place] [address] Referral ID Status Reason Start Date Expiration Date V isits Requested Visits Authorized [id number] Closed Auto-Generate d Referral 01/15/2024 02/13/2025 1 1 Reason Onset Date Comments Refill Request 03/07/2024 Reason Onset Date Comments Refill Request 05/16/2024 Trelegy ellipta Reason Comments Angle Closure Glaucoma Follow Up Reason Comments Angle Closure Glaucoma Follow Up Suspect , Both Eyes Non-insulin Dependent Diabetes Mellitus Patient does not check blood sugar levels regularly. HbA1c: 6.2 Reason Onset Date Comments Refill Request 08/17/2024 Care Teams (unrecognized sec tion and content) Community Health Promoter Relationship Specialty Start Date End Date Solis Bedoya MD [address] [place], [place] [id number] PCP - General Internal Medicine 11/29/21 Marvel Sam DO [address] [place], [place] [id number] PCP Resident Internal Medicine 11/29/21 Community Health Promoter Relationship Specialty Start Date End Date Solis Bedoya MD [address] [place] [address] PCP - General Internal Medicine 11/29/21 Marvel Sam, DO [address] [place] [address] PCP Resident Internal Medicine 11/29/21 Community Health Promoter Relationship Specialty Start Date End Date Solis Bedoya MD [address] [place] [address] PCP - General Internal Medicine 11/29/21 Marvel Sam, DO [address] [place] [address] PCP Resident Internal Medicine 11/29/21 Community Health Promoter Relationship Specialty Start Date End Date Solis Bedoya MD [address] [place] [address] PCP - General Internal Medicine 11/29/21 Marvel Sam, DO [address] [place] [address] PCP Resident Internal Medicine 11/29/21 Community Health Promoter Relationship Specialty Start Date End Date Solis Bedoya MD [address] [place] [address] PCP - General Internal Medicine 11/29/21 Marvel Sam, DO [address] [place] [address] PCP Resident Internal Medicine 11/29/21 Community Health Promoter Relationship Specialty Start Date End Date Solis Bedoya MD [address] [place] [address] PCP - General Internal Medicine 11/29/21 Marvel Sam, DO [address] [place] [address] PCP Resident Internal Medicine 11/29/21 Community Health Promoter Relationship Specialty Start Date End Date Solis Bedoya MD [address] [place] [address] PCP - General Internal Medicine 11/29/21 Marvel Sam, DO [address] [place] [address] PCP Resident Internal Medicine 11/29/21 Community Health Promoter Relationship Specialty Start Date End Date Solis Bedoya MD [address] [place] [address] PCP - General Internal Medicine 11/29/21 Marvel Sam, DO [address] [place] [address] PCP Resident Internal Medicine 11/29/21 Community Health Promoter Relationship Specialty Start Date End Date Solis Bedoya MD [address] [place] [address] PCP - General Internal Medicine 11/29/21 Marvel Sam, DO [address] [place] [address] PCP Resident Internal Medicine 11/29/21 Community Health Promoter Relationship Specialty Start Date End Date Solis Bedoya MD [address] [place] [address] PCP - General Internal Medicine 11/29/21 Marvel Sam, DO [address] [place] [address] PCP Resident Internal Medicine 11/29/21 Community Health Promoter Relationship Specialty Start Date End Date Solis Bedoya MD [address] [place] [address] PCP - General Internal Medicine 11/29/21 Marvel Sam, DO [address] [place] [address] PCP Resident Internal Medicine 11/29/21 Community Health Promoter Relationship Specialty Start Date End Date Solis Bedoya MD [address] [place] [address] PCP - General Internal Medicine 11/29/21 Marvel Sam, DO [address] [place] [address] PCP Resident Internal Medicine 11/29/21 Community Health Promoter Relationship Specialty Start Date End Date Solis Bedoya MD [address] [place] [address] PCP - General Internal Medicine 11/29/21 Marvel Sam, DO [address] [place] [address] PCP Resident Internal Medicine 11/29/21 Community Health Promoter Relationship Specialty Start Date End Date Solis Bedoya MD [address] [place] [address] PCP - General Internal Medicine 11/29/21 Marvel Sam, DO [address] [place] [address] PCP Resident Internal Medicine 11/29/21 Community Health Promoter Relationship Specialty Start Date End Date Solis Bedoya MD [address] [place] [address] PCP - General Internal Medicine 11/29/21 Marvel Sam, DO [address] [place] [address] PCP Resident Internal Medicine 11/29/21 Community Health Promoter Relationship Specialty Start Date End Date Solis Bedoya MD [address] [place] [address] PCP - General Internal Medicine 11/29/21 Marvel Sam, DO [address] [place] [address] PCP Resident Internal Medicine 11/29/21 Community Health Promoter Relationship Specialty Start Date End Date Solis Bedoya MD [address] [place] [address] PCP - General Internal Medicine 11/29/21 Marvel Sam, DO [address] [place] [address] PCP Resident Internal Medicine 11/29/21 Community Health Promoter Relationship Specialty Start Date End Date Solis Bedoya MD [address] [place] [address] PCP - General Internal Medicine 11/29/21 Marvel Sam, DO [address] [place] [address] PCP Resident Internal Medicine 11/29/21 Community Health Promoter Relationship Specialty Start Date End Date Solis Bedoya MD [address] [place] [address] PCP - General Internal Medicine 11/29/21 Marvel Sam, DO [address] [place] [address] PCP Resident Internal Medicine 11/29/21 Community Health Promoter Relationship Specialty Start Date End Date Solis Bedoya MD [address] [place] [address] PCP - General Internal Medicine 11/29/21 Marvel Sam, DO [address] [place] [address] PCP Resident Internal Medicine 11/29/21 Community Health Promoter Relationship Specialty Start Date End Date Solis Bedoya MD [address] [place] [address] PCP - General Internal Medicine 11/29/21 Marvel Sam, DO [address] [place] [address] PCP Resident Internal Medicine 11/29/21 Community Health Promoter Relationship Specialty Start Date End Date Solis Bedoya MD [address] [place] [address] PCP - General Internal Medicine 11/29/21 Marvel Sam, DO [address] [place] [address] PCP Resident Internal Medicine 11/29/21 Community Health Promoter Relationship Specialty Start Date End Date Solis Bedoya MD [address] [place] [address] PCP - General Internal Medicine 11/29/21 Marvel Sam, DO [address] [place] [address] PCP Resident Internal Medicine 11/29/21 Community Health Promoter Relationship Specialty Start Date End Date Solis Bedoya MD [address] [place] [address] PCP - General Internal Medicine 11/29/21 Marvel Sam, DO [address] [place] [address] PCP Resident Internal Medicine 11/29/21 Community Health Promoter Relationship Specialty Start Date End Date Solis Bedoya MD [address] [place] [address] PCP - General Internal Medicine 11/29/21 Marvel Sam, DO [address] [place] [address] PCP Resident Internal Medicine 11/29/21 Community Health Promoter Relationship Specialty Start Date End Date Solis Bedoya MD [address] [place] [address] PCP - General Internal Medicine 11/29/21 Marvel Sam, DO [address] [place] [address] PCP Resident Internal Medicine 11/29/21 Community Health Promoter Relationship Specialty Start Date End Date Solis Bedoya MD [address] [place] [address] PCP - General Internal Medicine 11/29/21 Marvel Sam, DO [address] [place] [address] PCP Resident Internal Medicine 11/29/21 Community Health Promoter Relationship Specialty Start Date End Date Solis Bedoya MD [address] [place] [address] PCP - General Internal Medicine 11/29/21 Marvel Sam, DO [address] [place] [address] PCP Resident Internal Medicine 11/29/21 Community Health Promoter Relationship Specialty Start Date End Date Solis Bedoya MD [address] [place] [address] PCP - General Internal Medicine 11/29/21 Marvel Sam, DO [address] [place] [address] PCP Resident Internal Medicine 11/29/21 Community Health Promoter Relationship Specialty Start Date End Date Solis Bedoya MD [address] [place] [address] PCP - General Internal Medicine 11/29/21 Marvel Sam, DO [address] [place] [address] PCP Resident Internal Medicine 11/29/21 Community Health Promoter Relationship Specialty Start Date End Date Solis Bedoya MD [address] [place] [address] PCP - General Internal Medicine 11/29/21 Marvel Sam DO [address] [place], [place] [id number] [phone] PCP Resident Internal Medicine 11/29/21 Community Health Promoter Relationship Specialty Start Date End Date Solis Bedoya MD [address] [place], [place] [phone] PCP - General Internal Medicine 11/29/21 Marvel Sam DO [address] [place] [address] PCP Resident Internal Medicine 11/29/21 Community Health Promoter Relationship Specialty Start Date End Date Solis Bedoya MD [address] [place], [place] [phone] PCP - General Internal Medicine 11/29/21 Marvel Sam DO [address] [place] [address] PCP Resident Internal Medicine 11/29/21 Community Health Promoter Relationship Specialty Start Date End Date Solis Bedoya MD [address] [place], [place] [phone] PCP - General Internal Medicine 11/29/21 10/03/22 Marvel Sam DO [address] [place] [address] PCP Resident Internal Medicine 11/29/21 Community Health Promoter Relationship Specialty Start Date End Date Marvel Sam DO [address] [place] [address] PCP Resident Internal Medicine 11/29/21 Community Health Promoter Relationship Specialty Start Date End Date Chris Raza MD [address] [place], [place] [id number] [phone] PCP - General Internal Medicine 10/28/22 Marvel Sam, DO [address] [place], [place] [id number] PCP Resident Internal Medicine 11/29/21 Community Health Promoter Relationship Specialty Start Date End Date Chris Raza MD [address] [place], [place] [id number] PCP - General Internal Medicine 10/28/22 Marvel Sam DO [address] [place], [place] [phone] PCP Resident Internal Medicine 11/29/21 Community Health Promoter Relationship Specialty Start Date End Date Chris Raza MD [address] [place], [place] [id number] PCP - General Internal Medicine 10/28/22 Marvel Sam, DO [address] [place], [place] [phone] PCP Resident Internal Medicine 11/29/21 Community Health Promoter Relationship Specialty Start Date End Date Chris Raza MD [address] [place], [place] [id number] PCP - General Internal Medicine 10/28/22 Marvel Sam DO [address] [place], [place] [id number] PCP Resident Internal Medicine 11/29/21 Community Health Promoter Relationship Specialty Start Date End Date Chris Raza MD [address] [place], [place] [id number] PCP - General Internal Medicine 10/28/22 Marvel Sam DO [address] [place], [place] [phone] PCP Resident Internal Medicine 11/29/21 Community Health Promoter Relationship Specialty Start Date End Date Chris Raza MD [address] [place], [place] [id number] PCP - General Internal Medicine 10/28/22 Marvel Sam, [address] [place], [place] [id number] PCP Resident Internal Medicine 11/29/21 Community Health Promoter Relationship Specialty Start Date End Date Chris Raza MD [address] [place], [place] [phone] PCP - General Internal Medicine 10/28/22 Marvel Sam, 1 [place], [place] [id number] PCP Resident Internal Medicine 11/29/21 Community Health Promoter Relationship Specialty Start Date End Date Chris Raza MD [address] [place], [place] [id number] PCP - General Internal Medicine 10/28/22 Marvel Sam, 1 [place], [place] 63868307 PCP Resident Internal Medicine 11/29/21 Community Health Promoter Relationship Specialty Start Date End Date Chris Raza MD [address] [place], [place] [id number] PCP - General Internal Medicine 10/28/22 Marvel Sam, 1 [place], [place] [phone] PCP Resident Internal Medicine 11/29/21 Community Health Promoter Relationship Specialty Start Date End Date Chirs Raza MD [address] [place], [place] [id number] PCP - General Internal Medicine 10/28/22 Marvel Sam DO [address] [place], [place] [phone] PCP Resident Internal Medicine 11/29/21 Community Health Promoter Relationship Specialty Start Date End Date Chris Raza MD [address] [place], [place] [phone] PCP - General Internal Medicine 10/28/22 Marvel Sam DO [address] [place], [place] [phone] PCP Resident Internal Medicine 11/29/21 Community Health Promoter Relationship Specialty Start Date End Date Solis Bedoya MD [address] [place], [place] [phone] PCP - General Internal Medicine 11/29/21 10/03/22 Chris Raza MD [address] [place], [place] [id number] PCP - General Internal Medicine 10/04/22 10/16/22 Chris Raza MD [address] [place], [place] [id number] PCP - General Internal Medicine 10/28/22 Marvel Sam DO 1 [place], [place] [phone] PCP Resident Internal Medicine 11/29/21 Community Health Promoter Relationship Specialty Start Date End Date Chris Raza MD [address] [place], [place] [id number] PCP - General Internal Medicine 10/28/22 Marvel Sam DO [address] [place], [place] [phone] PCP Resident Internal Medicine 11/29/21 Team Status: Active Member Role Status Dates No Primary Care Physician Primary Care Provider Active Team Status: Inactive Member Role Status Dates Glenroy Dumas MD Emergency Provider Active No Primary Care Physician Primary Care Provider Active Community Health Promoter Relationship Specialty Start Date End Date Chris Raza MD [address] [place], [place] [phone] PCP - General Internal Medicine 10/28/22 Marvel Sam DO [address] [place], [place] [id number] PCP Resident Internal Medicine 11/29/21 Community Health Promoter Relationship Specialty Start Date End Date Solis Bedoya MD [address] [place], [place] [id number] PCP - General Internal Medicine 11/29/21 10/03/22 Marvel Sam DO [address] [place], [place] [id number] PCP Resident Internal Medicine 11/29/21 Community Health Promoter Relationship Specialty Start Date End Date Chris Raza MD [address] [place], [place] [phone] PCP - General Internal Medicine 10/28/22 Marvel Sam DO [address] [place], [place] [phone] PCP Resident Internal Medicine 11/29/21 Community Health Promoter Relationship Specialty Start Date End Date Chris Raza MD [address] [place], [place] [phone] PCP - General Internal Medicine 10/28/22 Marvel Sam DO [address] [place], [place] [id number] PCP Resident Internal Medicine 11/29/21 Community Health Promoter Relationship Specialty Start Date End Date Chris Raza MD [address] [place], [place] [id number] PCP - General Internal Medicine 10/28/22 Marvel Sam DO [address] [place], [place] [phone] PCP Resident Internal Medicine 11/29/21 Community Health Promoter Relationship Specialty Start Date End Date Chris Raza MD [address] [place], [place] [phone] PCP - General Internal Medicine 10/28/22 Marvel Sam DO [address] [place], [place] [phone] PCP Resident Internal Medicine 11/29/21 Community Health Promoter Relationship Specialty Start Date End Date Solis Bedoya MD [address] [place], [place] [phone] PCP - General Internal Medicine 11/29/21 10/03/22 Chris Raza MD [address] [place], [place] [id number] PCP - General Internal Medicine 10/04/22 10/16/22 Chris Raza MD [address] [place], [place] [id number] PCP - General Internal Medicine 10/28/22 Marvel Sam DO [address] [place], [place] [id number] PCP Resident Internal Medicine 11/29/21 Community Health Promoter Relationship Specialty Start Date End Date Chris Raza MD [address] [place], [place] [id number] PCP - General Internal Medicine 10/28/22 Marvel Sam DO [address] [place], [place] [id number] PCP Resident Internal Medicine 11/29/21 Community Health Promoter Relationship Specialty Start Date End Date Chris Raza MD [address] [place], [place] [id number] PCP - General Internal Medicine 10/28/22 Marvel Sam DO [address] [place], [place] [id number] PCP Resident Internal Medicine 11/29/21 Community Health Promoter Relationship Specialty Start Date End Date Chris Raza MD [address] [place], [place] [id number] PCP - General Internal Medicine 10/28/22 Marvel Sam DO [address] [place] [address] PCP Resident Internal Medicine 11/29/21 Community Health Promoter Relationship Specialty Start Date End Date Chris Raza MD [address] [place], [place] [phone] PCP - General Internal Medicine 10/28/22 Marvel Sam DO [address] [place], [place] [id number] PCP Resident Internal Medicine 11/29/21 Community Health Promoter Relationship Specialty Start Date End Date Chris Raza MD [address] [place], [place] [id number] PCP - General Internal Medicine 10/28/22 Marvel Sam DO [address] [place], [place] [id number] PCP Resident Internal Medicine 11/29/21 Community Health Promoter Relationship Specialty Start Date End Date Chris Raza MD [address] [place], [place] [id number] PCP - General Internal Medicine 10/28/22 Marvel Sam DO [address] [place], [place] [phone] PCP Resident Internal Medicine 11/29/21 Community Health Promoter Relationship Specialty Start Date End Date Chris Raza MD [address] [place], [place] [phone] PCP - General Internal Medicine 10/28/22 Marvel Sam DO [address] [place], [place] [phone] PCP Resident Internal Medicine 11/29/21 Community Health Promoter Relationship Specialty Start Date End Date Chris Raza MD [address] [place], [place] [id number] PCP - General Internal Medicine 10/28/22 Shruthi Dolan MD [address] [place], [place] [phone] PCP Resident Internal Medicine 10/05/23 Community Health Promoter Relationship Specialty Start Date End Date Chris Raza MD [address] [place], [place] [id number] PCP - General Internal Medicine 10/28/22 Marvel Sam DO PCP Resident Internal Medicine 11/29/21 10/04/23 Trent Delaney MD 1 [place], [place] [id number] PCP Resident Internal Medicine 10/05/23 10/05/23 Shruthi Dolan MD 1 [place], [place] [id number] PCP Resident Internal Medicine 10/05/23 Community Health Promoter Relationship Specialty Start Date End Date Chris Raza MD [address] [place], [place] [id number] PCP - General Internal Medicine 10/28/22 Shruthi Dolan MD [address] [place], [place] [phone] PCP Resident Internal Medicine 10/05/23 Community Health Promoter Relationship Specialty Start Date End Date Chris Raza MD [address] [place], [place] [id number] PCP - General Internal Medicine 10/28/22 Shruthi Dolan MD [address] [place], [place] [id number] PCP Resident Internal Medicine 10/05/23 Community Health Promoter Relationship Specialty Start Date End Date Chris Raza MD [address] [place], [place] [id number] PCP - General Internal Medicine 10/28/22 Shruthi Dolan MD [address] [place], [place] [id number] PCP Resident Internal Medicine 10/05/23 Community Health Promoter Relationship Specialty Start Date End Date Chris Raza MD [address] [place], [place] [id number] PCP - General Internal Medicine 10/28/22 Shruthi Dolan MD [address] [place], [place] [id number] PCP Resident Internal Medicine 10/05/23 Community Health Promoter Relationship Specialty Start Date End Date Chris Raza MD [address] [place], [place] [id number] PCP - General Internal Medicine 10/28/22 Shruthi Dolan MD [address] [place], [place] [id number] PCP Resident Internal Medicine 10/05/23 Community Health Promoter Relationship Specialty Start Date End Date Chris Raza MD [address] [place], [place] [id number] PCP - General Internal Medicine 10/28/22 Shruthi Dolan MD [address] [place] [address] PCP Resident Internal Medicine 10/05/23 Community Health Promoter Relationship Specialty Start Date End Date Chris Raza MD [address] [place], [place] [id number] PCP - General Internal Medicine 10/28/22 Shruthi Dolan MD [address] [place], [place] [phone] PCP Resident Internal Medicine 10/05/23 Community Health Promoter Relationship Specialty Start Date End Date Chris Raza MD [address] [place], [place] [id number] PCP - General Internal Medicine 10/28/22 Shruthi Dolan MD [address] [place], [place] [id number] PCP Resident Internal Medicine 10/05/23 Community Health Promoter Relationship Specialty Start Date End Date Chris Raza MD [address] [place], [place] [id number] PCP - General Internal Medicine 10/28/22 Shruthi Dolan MD [address] [place], [place] [id number] PCP Resident Internal Medicine 10/05/23 Community Health Promoter Relationship Specialty Start Date End Date Crhis Raza MD [address] [place] [address] PCP - General Internal Medicine 10/28/22 Shrutih Dolan MD [address] [place], [place] [id number] PCP Resident Internal Medicine 10/05/23 Community Health Promoter Relationship Specialty Start Date End Date Chris Raza MD [address] [place], [place] [phone] PCP - General Internal Medicine 10/28/22 Shruthi Dolan MD [address] [place], [place] [id number] PCP Resident Internal Medicine 10/05/23 Community Health Promoter Relationship Specialty Start Date End Date Chris Raza MD [address] [place], [place] [id number] PCP - General Internal Medicine 10/28/22 Shruthi Dolan MD [address] [place], [place] [id number] PCP Resident Internal Medicine 10/05/23 Community Health Promoter Relationship Specialty Start Date End Date Chris Raza MD [address] [place], [place] [id number] PCP - General Internal Medicine 10/28/22 Shruthi Dolan MD [address] [place], [place] [phone] PCP Resident Internal Medicine 10/05/23 Community Health Promoter Relationship Specialty Start Date End Date Chris Raza MD [address] [place], [place] [id number] PCP - General Internal Medicine 10/28/22 Shruthi Dolan MD [address] [place], [place] [phone] PCP Resident Internal Medicine 10/05/23 Community Health Promoter Relationship Specialty Start Date End Date Chris Raza MD [address] [place], [place] [id number] PCP - General Internal Medicine 10/28/22 Shruthi Dolan MD [address] [place], [place] [id number] PCP Resident Internal Medicine 10/05/23 Community Health Promoter Relationship Specialty Start Date End Date Chris Raza MD [address] [place], [place] [id number] PCP - General Internal Medicine 10/28/22 Shruthi Dolan MD [address] [place], [place] [id number] PCP Resident Internal Medicine 10/05/23 Community Health Promoter Relationship Specialty Start Date End Date Chris Raza MD [address] [place], [place] [phone] PCP - General Internal Medicine 10/28/22 Shruthi Dolan MD [address] [place], [place] [id number] PCP Resident Internal Medicine 10/05/23 Community Health Promoter Relationship Specialty Start Date End Date Chris Raza MD [address] [place] [address] PCP - General Internal Medicine 10/28/22 Shruthi Dolan MD [address] [place] [address] PCP Resident Internal Medicine 10/05/23 Community Health Promoter Relationship Specialty Start Date End Date Chris Raza MD [address] [place] [address] PCP - General Internal Medicine 10/28/22 Shruthi Dolan MD [address] [place] [address] PCP Resident Internal Medicine 10/05/23 Community Health Promoter Relationship Specialty Start Date End Date Chris Raza MD [address] [place] [address] PCP - General Internal Medicine 10/28/22 Shruthi Dolan MD [address] [place] [address] PCP Resident Internal Medicine 10/05/23 Goals (unrecognized section and content) Goals may be documented in a n alternate section No data available for this section No data available for this section No data available for this section Inactive Administered Medications - up to 3 most recent administrations Administered Medications (un recognized section and content) Medication Order MAR Action Action Date Dose Rate Site betamethasone acetate-betamethasone sodium phosphate 6 mg injection (CELESTONE) 6 mg, Injection - FOR ORTHO USE ONLY, ONCE, 1 dose, Starting on Thu06/22/23 at 1018, Until Thu06/22/23 at 1018 Given 06/22/2023 10:18 AM EDT 6 mg Knee , Right lidocaine (PF) 10 mg/mL (1 %) 5 mL injection (XYLOCAINE) 5 mL, Injection - FOR ORTHO USE ONLY, ONCE, 1 dose, Starting on Thu06/22/23 at 1018, Until Thu06/22/23 at 1018 Given 06/22/2023 10:18 AM EDT 5 mL Knee , Right FOR RECORDS PERTAINING TO PATIENTS WHO ARE OR HAVE BEEN ENROLLED IN A CHEMICAL DEPENDENCY/SUBSTANCEABUSE PROGRAM, SOME INFORMATION MAY BE OMITTED. This clinical summary was aggregated from multiple sources. Caution should be exercised in using it in the provision of clinical care. This summary normalizes information from multiple sources, and as a consequence, information in this document may materially change the coding, format and clinical context of patient data. In addition, data may be omitted in some cases. CLINICAL DECISIONS SHOULD BE BASED ON THE PRIMARY CLINICAL RECORDS. [employer] [facility]. provides no warranty or guarantee of the accuracy or completeness of information in this document.
[2024-09-21 00:31] LABS: Color, Urine Yellow (Yellow); Glucose, Dipstick Normal (Normal); Ketone-Dipstick Negative (Negative); Leukocyte Esterase-Dipstick 25 /ul (Negative); Mucous, Urine 0 SEEN /hpf (<or=2+); Nitrite-Dipstick Negative (Negative); Occult Blood-Urine Negative /ul (Negative); Protein-Dipstick 30 mg/dl (Negative); Red Blood Cells-Urine 0 SEEN /hpf (0-5); Specific Gravity, Urine 1.015 (1.002-1.030); Urine Bilirubin Dipstick Negative (Negative); Urine Clarity Sl. Cloudy (Clear); Urine Urobilinogen Normal (Normal)
[2024-09-21 00:40] LABS: Bacteria 1+ /hpf (None Seen); Squamous Epithelial Cells - UA 0-5 SEEN /hpf (5-10); White Blood Cells 0-5 SEEN /hpf (0-5)
[2024-09-21] MEDS: Pantoprazole Sodium 40 MG in 0.9% Normal Saline (100mL MB+) 100 ML 330 MG IV ×2 (01:20→07:57)
[2024-09-21] MEDS: 0.9% Normal Saline (1000mL) 1,000 ML 150 ML IV ×2 (01:21→07:56)
[2024-09-21] MEDS: Ondansetron 4 MG/2 ML Vial IV (01:21)
[2024-09-21 03:08] LABS: Hemoglobin A1c 6.6 % (<=5.6)
[2024-09-21] MEDS: CLINDAMYCIN IV (05:59)
[2024-09-21] MEDS: DEXTROSE 5% IV (05:59)
[2024-09-21] MEDS: WATER IV (05:59)
[2024-09-21] MEDS: 0.9% Saline Lock 10 ML Syringe IV ×2 (06:00→23:52)
[2024-09-21 06:20] LABS: Absolute Lymphocyte Count 2.57 X10^3/uL (0.83-4.51); Absolute Neutrophil Count 12.1 X10^3/uL (2.0-7.7); Basophil# 0.07 X10^3/uL; Basophil% 0.4 % (0-1); Eosinophil# 0.21 X10^3/uL; Eosinophils% 1.3 % (0-5); Hematocrit 34.1 % (37-47); Hemoglobin 11.4 g/dL (12.0-15.0); Lymphocyte # 2.57 X10^3/ul (0.83-4.51); Mean Corp Hgb Conc 33.4 g/dL (32-36); Mean Corpuscular Hgb 28.7 pg (27.0-32.0); Mean Corpuscular Volume 85.9 fL (81-99); Mean Platelet Vol. 9.9 fl (6.2-12.0); Monocyte# 0.97 X10^3/uL; NRBC Flagged by Analyzer 0 % (0-5); Neutrophil # 12.13 X10^3/uL (2.7-7.7); Neutrophil % 75.7 % (47-70); Platelet Count 235 K/mm3 (150-450); RBC Distribution Width CV 14.5 % (11.6-14.6); RBC Distribution Width SD 45.1 fl (35.1-43.9); Red Blood Count 3.97 M/mm3 (4.2-5.4)
[2024-09-21] MEDS: metroNIDAZOLE 500 MG/100 ML BAG 100 MG IV ×3 (06:28→21:43)
[2024-09-21] MEDS: Ipratropium/Albuterol Sulfate 3 ML AMPUL.NEB INHALATION ×3 (06:56→19:33)
[2024-09-21] MEDS: Budesonide Respules 0.5 MG/2 ML AMPUL.NEB. INHALATION ×2 (06:57→19:33)
--- NOTE | 2024-09-21 07:16 | EX.PCM.CON.S ---
Assessment & Plan Assessment/Plan (1) Abscess of sigmoid colon due to diverticulitis: PLAN: Patient is 64-year-old female admitted with complicated diverticulitis, first episode. Fortunately course was already complicated by anaphylaxis reaction to Zosyn. She appears to be clinically stable following that event and even clinically improved for her presenting complaint now hospital day 2 with antibiotics. She has just mild tenderness on exam. An independent review of her CT imaging I do not believe there is reason to pursue percutaneous drainage due to the manageable size of the fluid collections and I did not see a clear window for accessing them. Therefore, recommend continued dietary restriction with clear liquids ongoing IV antibiotic therapy. Surgery to follow serial abdominal exams. Will likely consider reimaging at 48 hours. Enrique Peña MD General Surgery Endocrine Surgery Pager: [facility] [address] [place] [address], [facility], [address] [place] [address] Office: [phone] HPI Consult Data Date of Consult: 09/21/24 HPI Narrative Reason for Consultation: Complicated diverticulitis HPI Narrative: AURELOI MICHELLE, is a 64 F who presents to [facility] with complaints of severe tenderness to her left lower quadrant that began suddenly 09/18/2024 following a bowel movement and gradually intensified. She states that she has never experienced such discomfort and that it had doubled her over. She notes some associated chills but did not formally take a temperature. Patient's ER workup was notable for CBC demonstrated leukocytosis of nearly 23,000. CT imaging of the abdomen pelvis showed 2 small loculated fluid collections consistent with pericolonic and intrapelvic abscesses measuring 2.8 x 0.9 and 3.8 x 1.6 cm, respectively. Upon receiving the above result patient was administered Zosyn empirically, however, she experienced an anaphylactic reaction and was treated for this reaction while antibiotic was immediately switched. An abundance of caution she was admitted to the ICU for ongoing monitoring. Patient denies any prior history of diverticulitis but states there are several family members with this disease diagnosis. She also reports completing a screening colonoscopy in 2021 in [facility] where she had several polypectomies performed but was never alerted to any diverticulosis. 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 [facility] Medical History Groin cyst COPD (chronic obstructive pulmonary disease) Depression Cervical cancer Skin cancer IBS (irritable bowel syndrome) Hyperlipemia Hypertension Diabetes Carpal tunnel syndrome Cataracts, bilateral Arthritis Glaucoma Anal fissure Home Medications ?Medication ?Instructions ?Recorded ?Last Taken ?Type fluticasone fur. 100 mcg-umeclid 1 ea inhalation QDAY #28 ea 03/05/24 Unknown Rx 62.5 mcg-vilant 25 mcg inhalat.powder (Trelegy Ellipta) bumetanide 1 mg tablet 1 mg PO QDAY #90 tabs 03/28/24 09/20/24 Rx cholecalciferol (vitamin D3) 25 25 mcg PO QDAY #90 caps 03/28/24 09/20/24 Rx mcg (1,000 unit) capsule (Vitamin D3) esomeprazole magnesium 40 mg 40 mg PO QDAY #90 caps 03/28/24 09/20/24 Rx capsule,delayed release metoprolol succinate 25 mg 25 mg PO QDAY #90 tabs 03/28/24 09/20/24 Rx tablet,extended release 24 hr montelukast 10 mg tablet 10 mg PO QDAY #90 tabs 03/28/24 09/20/24 Rx rosuvastatin 10 mg tablet 10 mg PO QHS #90 tabs 03/28/24 Unknown Rx valsartan 80 mg tablet 80 mg PO QDAY #90 tabs 03/28/24 09/20/24 Rx sennosides 8.6 mg-docusate sodium 1 tab-cap PO QHS #30 tabs 06/28/24 Unknown Rx 50 mg tablet semaglutide 1 mg/dose (4 mg/3 mL) 1 mg (0.75 mL) subcut QWEEK #3 mL 07/20/24 09/14/24 Rx subcutaneous pen injector indomethacin 25 mg capsule 25 mg PO BID #60 caps 07/26/24 09/20/24 Rx albuterol sulfate 90 mcg/actuation 2 puff inhalation Q6H PRN 08/16/24 Unknown Rx aerosol inhaler shortness of breath or wheezing #8.5 grams hydroxyzine HCl 50 mg tablet 100 mg (2 x 50 mg) PO BID #90 08/16/24 09/20/24 Rx TABLETS Allergy/AdvReac Type Severity Reaction Status Date / Time hydrocodone Allergy RASH Verified 09/20/24 14:41 piperacillin (From Zosyn) Allergy Hives Verified 09/20/24 22:20 Sulfa (Sulfonamide Allergy UNSURE Verified 09/20/24 14:41 Antibiotics) tazobactam (From Zosyn) Allergy Hives Verified 09/20/24 22:20 meloxicam AdvReac Severe facial Verified 09/20/24 14:41 swellling naproxen AdvReac Nausea Verified 09/20/24 14:41 tramadol AdvReac Nausea Verified 09/20/24 16:02 trazodone AdvReac PT UNSURE Verified 09/20/24 14:41 OF REACTION Family History Sister Bleeding disorder Diabetes Epilepsy Father Heart disease Hypertension Bowel disease Mother Heart disease Hyperlipemia Surgical History History of rectal surgery H/O: section S/P rotator cuff surgery Social History adopted: No household members: none number of children: 3 current occupational status: retired pets and animals: Yes (2) pets and animals: fish sexually active: No Smoking Status: Current every day smoker tobacco type: cigarettes Tobacco: How many years used: 45 alcohol intake: never substance use type: does not use caffeine: Yes (2) Type: coffee what type of physical activity do you participate in: none do you feel safe at home: Yes Physical Exam Const alert, oriented x3, no apparent distress and well nourished Resp normal respiratory effort GI GI Narrative: Obese, no visible hernias, well-healed Pfannenstiel incision, mild tenderness with palpation of the left lower quadrant and suprapubic positions. Lab / Micro Data 09/21/24 06:10 09/21/24 06:10 Labs: Laboratory Results - last 24 hr 09/20/24 16:07: WBC 22.9 H, RBC 4.76, Hgb 14.2, Hct 40.6, MCV 85.3, MCH 29.8, MCHC 35.0, RDW Std Deviation 44.5 H, RDW Coeff of Jose Luis 14.3, Plt Count 271, MPV 9.6, Immature Gran % (Auto) 0.600, Neut % (Auto) 79.7 H, Lymph % (Auto) 13.9 L, [place] % (Auto) 4.7, Eos % (Auto) 0.7, Baso % (Auto) 0.4, Absolute Neuts (auto) 18.2 H, Absolute Lymphs (auto) 3.19, Nucleated RBC % 0, Sodium 134, Potassium 4.0, Chloride 97 L, Carbon Dioxide 26.1, Anion Gap 11, BUN 15, Creatinine 1.04, Estim Creat Clear Calc 56.68, Est GFR (MDRD) Non-Af 59 L, BUN/Creatinine Ratio 14.1, Glucose 109 H, Hemoglobin A1c 6.6 H, Lactic Acid 1.3, Calcium 9.6, Phosphorus 3.3, Magnesium 2.0, Total Bilirubin 0.67, AST 17, ALT 18, Alkaline Phosphatase 68, Total Protein 7.0, Albumin 3.9, Globulin 3.1, Albumin/Globulin Ratio 1.3, TSH 1.500 09/20/24 23:45: Lactic Acid 1.5 09/21/24 00:25: Urine Color Yellow, Urine Clarity Sl. Cloudy, Urine pH 5.0, Ur Specific [place] 1.015, Urine Protein 30 H, Urine Glucose (UA) Normal, Urine Ketones Negative, Urine Occult Blood Negative, Urine Nitrite Negative, Urine Bilirubin Negative, Urine Urobilinogen Normal, Ur Leukocyte Esterase 25 H, Urine RBC 0 SEEN, Urine WBC 0-5 SEEN, Ur Squamous Epith Cells 0-5 SEEN, Urine Bacteria 1+, Urine Mucus 0 SEEN 09/21/24 06:10: WBC 16.0 H, RBC 3.97 L, Hgb 11.4 L, Hct 34.1 L, MCV 85.9, MCH 28.7, MCHC 33.4, RDW Std Deviation 45.1 H, RDW Coeff of Jose Luis 14.5, Plt Count 235, MPV 9.9, Immature Gran % (Auto) 0.600, Neut % (Auto) 75.7 H, Lymph % (Auto) 16.0 L, [place] % (Auto) 6.0, Eos % (Auto) 1.3, Baso % (Auto) 0.4, Absolute Neuts (auto) 12.1 H, Absolute Lymphs (auto) 2.57, Nucleated RBC % 0 Imaging Radiology Impression Abdomen/Pelvis CT 09/20/24 17:15 IMPRESSION: Sigmoid colon diverticulitis. Associated sigmoid colon wall abscess. Additional abscess within the pelvis abutting the undersurface of the uterus. Reading Location: [id number] Charges/Coding Visit Charges Inpatient E&M: 56636 Subs Hosp L2
[2024-09-21 07:18] LABS: ALB/GLOB Ratio 1.2 RATIO (0.9-2.4); AST(SGOT) 26 U/L (<=31); Alanine Aminotransfer ALT/SGPT 14 U/L (<=34); Albumin, Serum 3.3 g/dL (3.4-4.8); Alkaline Phosphatase 66 U/L (35-104); Anion Gap 10 (5-15); BUN 14 mg/dL (4-19); BUN/Creat Ratio 14.6 RATIO (10-20); Calcium,Total 8.7 mg/dL (7.6-11.0); Carbon Dioxide 21.6 mmol/L (21.0-32.0); Chloride 105 mmol/L (98-108); Creatinine, Serum 0.94 mg/dL (0.70-1.20); EST Glomerular Filtration Rate 67 (>60); Estimated Creatinine Clearance 62.88 ml/min (50-250); Globulin 2.8 g/dL (2.2-4.2); Glucose 93 mg/dL (70-99); Potassium 4.9 mmol/L (3.3-5.1); Protein, Total 6.2 g/dL (5.9-8.4); Sodium Level 136 mmol/L (133-145); Total Bilirubin 0.61 mg/dL (0.00-1.30)
--- NOTE | 2024-09-21 07:35 | PN.HOSP_ITS ---
Reason for Visit Reason for Visit: Diagnoses Elevated white blood cell count, unspecified (09/20/24) Obesity, class 1 (09/20/24) Diverticulitis of large intestine with perforation and abscess without bleeding (09/20/24) Anaphylactic reaction due to adverse effect of correct drug or medicament properly administered, initial encounter (09/20/24) Other specified postprocedural states (09/20/24) Objective Data Objective Data Vital Signs: Vital Signs Temp Pulse Resp BP Pulse Ox O2 Del Method O2 Flow Rate 98.2 F 85 20 H 96/57 L 98 Nasal Cannula 2 09/21/24 04:00 09/21/24 06:58 09/21/24 06:58 09/21/24 06:00 09/21/24 06:58 09/21/24 06:58 09/21/24 06:58 Oxygen Flow Rate (L/min) 2 Oxygen Delivery Method Nasal Cannula Weight: 192 lb 0.362 oz Body Mass Index (BMI) 32.8 Intake & Output: Intake and Output for Last 24 Hours 09/19/24 09/20/24 09/21/24 23:59 23:59 23:59 Intake Total 1060 / 1060 1304 / 1304 Output Total 0 / 0 Balance 1060 / 1060 1304 / 1304 Lab / Micro Data 09/21/24 06:10 09/21/24 06:10 Labs: Laboratory Results - last 24 hr 09/20/24 16:07: WBC 22.9 H, RBC 4.76, Hgb 14.2, Hct 40.6, MCV 85.3, MCH 29.8, MCHC 35.0, RDW Std Deviation 44.5 H, RDW Coeff of Jose Luis 14.3, Plt Count 271, MPV 9.6, Immature Gran % (Auto) 0.600, Neut % (Auto) 79.7 H, Lymph % (Auto) 13.9 L, [place] % (Auto) 4.7, Eos % (Auto) 0.7, Baso % (Auto) 0.4, Absolute Neuts (auto) 18.2 H, Absolute Lymphs (auto) 3.19, Nucleated RBC % 0, Sodium 134, Potassium 4.0, Chloride 97 L, Carbon Dioxide 26.1, Anion Gap 11, BUN 15, Creatinine 1.04, Estim Creat Clear Calc 56.68, Est GFR (MDRD) Non-Af 59 L, BUN/Creatinine Ratio 14.1, Glucose 109 H, Hemoglobin A1c 6.6 H, Lactic Acid 1.3, Calcium 9.6, Phosphorus 3.3, Magnesium 2.0, Total Bilirubin 0.67, AST 17, ALT 18, Alkaline Phosphatase 68, Total Protein 7.0, Albumin 3.9, Globulin 3.1, Albumin/Globulin Ratio 1.3, TSH 1.500 09/20/24 23:45: Lactic Acid 1.5 09/21/24 00:25: Urine Color Yellow, Urine Clarity Sl. Cloudy, Urine pH 5.0, Ur Specific [place] 1.015, Urine Protein 30 H, Urine Glucose (UA) Normal, Urine Ketones Negative, Urine Occult Blood Negative, Urine Nitrite Negative, Urine Bilirubin Negative, Urine Urobilinogen Normal, Ur Leukocyte Esterase 25 H, Urine RBC 0 SEEN, Urine WBC 0-5 SEEN, Ur Squamous Epith Cells 0-5 SEEN, Urine Bacteria 1+, Urine Mucus 0 SEEN 09/21/24 06:10: WBC 16.0 H, RBC 3.97 L, Hgb 11.4 L, Hct 34.1 L, MCV 85.9, MCH 28.7, MCHC 33.4, RDW Std Deviation 45.1 H, RDW Coeff of Jose Luis 14.5, Plt Count 235, MPV 9.9, Immature Gran % (Auto) 0.600, Neut % (Auto) 75.7 H, Lymph % (Auto) 16.0 L, [place] % (Auto) 6.0, Eos % (Auto) 1.3, Baso % (Auto) 0.4, Absolute Neuts (auto) 12.1 H, Absolute Lymphs (auto) 2.57, Nucleated RBC % 0, Sodium 136, Potassium 4.9, Chloride 105, Carbon Dioxide 21.6, Anion Gap 10, BUN 14, Creatinine 0.94, Estim Creat Clear Calc 62.88, Est GFR (MDRD) Non-Af 67, BUN/Creatinine Ratio 14.6, Glucose 93, Calcium 8.7, Total Bilirubin 0.61, AST 26, ALT 14, Alkaline Phosphatase 66, Total Protein 6.2, Albumin 3.3 L, Globulin 2.8, Albumin/Globulin Ratio 1.2 Radiography Diagnostic Testing: Radiology Impression Abdomen/Pelvis CT 09/20/24 17:15 IMPRESSION: Sigmoid colon diverticulitis. Associated sigmoid colon wall abscess. Additional abscess within the pelvis abutting the undersurface of the uterus. Reading Location: [id number] Physical Exam Narrative Seen and examined. Patient is stated for last Thursday she has not moved her bowel. She also has abdominal pain mainly on LLQ but also on RLQ for last few days along with cold, shivering/chills and fever. Denies prior history of diverticulitis. BP systolic in 90s, lower side. History of COPD and wheezing Physical exam General: Alert, Oriented x3, Cooperative HEENT: Atraumatic, PERRLA, EOMI, Normocephalic. Oral: No Gingival or Mucosal Lesions/ Ulcerations Neck: Supple, No JVD, Negative Carotid Bruits Chest wall/Lungs: Air entry diminished in bilateral lung bases. Mild expiratory rhonchi Cardiovascular: Regular rate and rhythm, soft heart sounds, no M/G/R Abdomen: Bowel Sounds Present, Soft, Non Tender, Non-Distended : No dysuria. No renal angle tenderness. No suprapubic tenderness. Extremities: No edema, Capillary Refill Less than 3 Seconds Skin: No rashes, No breakdown Musculoskeletal: No Tenderness to Palpation of Joints or Extremities Neurological: Cranial nerves II-XII grossly intact, DTR 2+/4. No acute focal neurological deficit. Psych/Mental Status: Normal Affect, Appropriate. Assessment & Plan Assessment/Plan (1) Abscess of sigmoid colon due to diverticulitis: (2) Abscess of pelvis: (3) Leukocytosis: QUALIFIERS: Leukocytosis type: unspecified Qualified Code(s): D 72.829 - Elevated white blood cell count, unspecified (4) Anaphylactic reaction due to adverse effect of correct drug or medicament properly administered, initial encounter: (5) History of rectal surgery: (6) Obesity (BMI 30.0-34.9): PLAN: Plan 64-year-old female admitted with lower abdominal pain that started Thursday, constipation. Bilateral lower quadrant abdominal pain left worse than right after having diarrhea on Thursday, September 17. Passing flatus. She stated her pain gets better with walking and exertion but feels more when she is laying down and resting. 1. Abdominal pain due to sigmoid colon diverticulitis complicated with sigmoid colonic and pelvic abscesses: CT scan of the abdomen and pelvis with IV contrast that revealed sigmoid colon diverticulitis with associated sigmoid colon wall abscess and additional abscess within the pelvis abutting the undersurface of the uterus - Admit to ICU due to multiple abscesses complicated by recent anaphylactic reaction. Plan: Admitted in ICU as per sepsis protocol. Initially patient was Keep strict n.p.o. and resume IV metronidazole and IV clindamycin initiated second line therapy in ER. Start pantoprazole 40 mg IV daily. Give IV ondansetron as needed for nausea vomiting. Give promethazine IM as needed for breakthrough nausea. Give acetaminophen W[place] as needed for [id number]-[id number] (level 1-5/10) pain or fever. Give hydromorphone IV as needed for severe (level 6-10/10) pain. Finally, general surgeon has been consulted to see patient on rounds in the a.m. for further recommendations regarding possible surgical intervention with help appreciated in advance. 09/20/24 16:07: WBC 22.9 H, RBC 4.76, Hgb 14.2, Hct 40.6, MCV 85.3, MCH 29.8, MCHC 35.0, RDW Std Deviation 44.5 H, RDW Coeff of Jose Luis 14.3, Plt Count 271, MPV 9.6, Immature Gran % (Auto) 0.600, Neut % (Auto) 79.7 H, Lymph % (Auto) 13.9 L, [place] % (Auto) 4.7, Eos % (Auto) 0.7, Baso % (Auto) 0.4, Absolute Neuts (auto) 18.2 H, Absolute Lymphs (auto) 3.19, Nucleated RBC % 0, Sodium 134, Potassium 4.0, Chloride 97 L, Carbon Dioxide 26.1, Anion Gap 11, BUN 15, Creatinine 1.04, Estim Creat Clear Calc 56.68, Est GFR (MDRD) Non-Af 59 L, BUN/Creatinine Ratio 14.1, Glucose 109 H, Hemoglobin A1c 6.6 H, Lactic Acid 1.3, Calcium 9.6, Phosphorus 3.3, Magnesium 2.0, Total Bilirubin 0.67, AST 17, ALT 18, Alkaline Phosphatase 68, Total Protein 7.0, Albumin 3.9, Globulin 3.1, Albumin/Globulin Ratio 1.3, TSH 1.500 06/17/25 23:45: Lactic Acid 1.5 09/21/24 00:25: Urine Color Yellow, Urine Clarity Sl. Cloudy, Urine pH 5.0, Ur Specific [place] 1.015, Urine Protein 30 H, Urine Glucose (UA) Normal, Urine Ketones Negative, Urine Occult Blood Negative, Urine Nitrite Negative, Urine Bilirubin Negative, Urine Urobilinogen Normal, Ur Leukocyte Esterase 25 H, Urine RBC 0 SEEN, Urine WBC 0-5 SEEN, Ur Squamous Epith Cells 0-5 SEEN, Urine Bacteria 1+, Urine Mucus 0 SEEN 09/21/24 06:10: WBC 16.0 H, RBC 3.97 L, Hgb 11.4 L, Hct 34.1 L, MCV 85.9, MCH 28.7, MCHC 33.4, RDW Std Deviation 45.1 H, RDW Coeff of Jose Luis 14.5, Plt Count 235, MPV 9.9, Immature Gran % (Auto) 0.600, Neut % (Auto) 75.7 H, Lymph % (Auto) 16.0 L, [place] % (Auto) 6.0, Eos % (Auto) 1.3, Baso % (Auto) 0.4, Absolute Neuts (auto) 12.1 H, Absolute Lymphs (auto) 2.57, Nucleated RBC % 0, Sodium 136, Potassium 4.9, Chloride 105, Carbon Dioxide 21.6, Anion Gap 10, BUN 14, Creatinine 0.94, Estim Creat Clear Calc 62.88, Est GFR (MDRD) Non-Af 67, BUN/Creatinine Ratio 14.6, Glucose 93, Calcium 8.7, Total Bilirubin 0.61, AST 26, ALT 14, Alkaline Phosphatase 66, Total Protein 6.2, Albumin 3.3 L, Globulin 2.8, Albumin/Globulin Ratio 1.2 2. Leukocytosis of 22.9K present on admission due to #1 - Serialize CBC to follow trend. 3. Suspected Anaphylactic Reaction to piperacillin-tazobactam in ER complicating #1 & #2 - Continue steroids and antihistamines as needed. Piperacillin-tazobactam added to patient's list of allergies. 4. History of rectal surgery; due to rectal wall muscle weakness done at outside facility by Dr. Grissom (2022) compounding #1 - #3 - Noted. 5. Obesity; with BMI of 32.8 this admission on semaglutide adding to the burden of disease outlined from #1 - #4 - Weight loss will be recommended. Check TSH. This complicates her case and may hamper recovery. 6. Essential hypertension; on metoprolol, valsartan and bumetanide - Hold oral regimen in favor IV hydralazine IV prn for systolic blood pressure > 160 mmHg. 7. Hyperlipidemia; on rosuvastatin - Hold statin until patient cleared for oral intake. 8. History of DM-2; currently untreated - Check HgbA1c to assess status. 9. History of tobacco abuse; with subsequent COPD - Stable with no acute flare at this time. 10. History of anal fissure - Noted. 11. History of rotator cuff surgery - Noted. 12. History of cervical cancer - Noted. 13. History of x 2 - Noted for the sake of completeness. 14. History of skin cancer - Noted. 15. History of glaucoma - Noted. 16. History of depression; currently not on treatment - Stable. 17. OA; primarily of the knee - Give acetaminophen prn as pre scale outlined in #1. 18. DVT/GI prophylaxis - SCD's only with patient likely needing surgical intervention to drain multiple abscesses. Pantoprazole 40 mg IV daily. Total time: Approximately (but not less than) 75 minutes.
[2024-09-21] MEDS: Lactobacillis Acidophilus 1 CAP PO ×3 (10:06→21:01)
[2024-09-21] MEDS: Enoxaparin 40 MG/0.4 ML Syringe SC (10:07)
[2024-09-21] MEDS: levoFLOXacin IV 750 MG/150 ML BAG 100 MG IV (10:07)
--- NOTE | 2024-09-21 11:10 | CASEMGMT ---
RN?CM?DRAFTER TOOL DESIGN?CM?to room to meet with patient for initial transition planning/care coordination?assessment.?RN?CM?introduced self and role at [facility].? Pt voices understanding and consents to?assessment?at this time.? Pt resting in bed in no distress at this time.? Pt is A/O at this time and answers all questions appropriately.?? Care providers, pharmacy, and demographics verified/updated at this time. Strata: 2 PCP: Dr Jaret Fuller Specialists: Dr Delgado. Preferred Pharmacy: [facility] Insurance: Marco Antonio CASAS Dual, HELGA Prescription Benefit:?yes LNOK: Sister, Kelly Valero. Brother, Vince Meyers Living Arrangements: Lives alone in ground-floor apt w/3 steps to enter, stating she sometimes does okay with them and sometimes has difficulty. There is a railing on one side. Pt reports being independent w/ADL's and IADL's and manages her own medications. Transportation:?Pt states drives self and states no transportation concerns at this time.?Sis-in-law will take her home @ [facility]. DME: States has has a glucometer @ home, but states it has been a long time since she used it. She denies having any further DME and denies needs. HHC/SNF: No hx of either. Pt was just recently discharged from OP therapy @ [facility]. She states has been up in room and is steady on her feet. She declines needing any further therapy @ pr. Pt wishes to return home and states has no concerns with going home at time of discharge.?CM?to follow for any discharge planning/needs.? Pt voices no concerns/needs at this time.? Advised pt to ask for?CM?if any questions/concerns/needs arise.? Voices understanding. PLAN:??Home Mehran BSN?RN?CM
[2024-09-21] MEDS: HYDROmorphone 0.5 MG/0.5 ML SYRINGE IV ×2 (14:11→23:52)
[2024-09-21] MEDS: Cefepime HCl 2 GM in 0.9% Normal Saline (100mL MB+) 100 ML IV ×2 (14:11→21:00)
--- NOTE | 2024-09-21 14:30 | PCM.CONS.GEN ---
Assessment & Plan Assessment/Plan (1) Anaphylactic reaction due to adverse effect of correct drug or medicament properly administered, initial encounter: (2) Abscess of sigmoid colon due to diverticulitis: PLAN: Will change to cefepime and flagyl. Should have low risk of cross reactivity with zosyn. Will follow, thank you HPI Consult Data Date of Consult: 09/21/24 HPI Narrative Reason for Consultation: intra-abd abscess HPI Narrative: AURELIO MICHELLE, is a 64 F who presented with 09/20 with 4 days progressive abd pain. Onset was sudden, associated with nausea and diarrhea. Pain was severe, diffuse. No fever or chills. Came to ED, CT done, had rash and swelling with zosyn. Admitted to icu on clinda, levaquin, and flagyl. Feeling a little better today. Full ROS performed and neg except as noted above. REPLACED BY [facility] Medical History Groin cyst COPD (chronic obstructive pulmonary disease) Depression Cervical cancer Skin cancer IBS (irritable bowel syndrome) Hyperlipemia Hypertension Diabetes Carpal tunnel syndrome Cataracts, bilateral Arthritis Glaucoma Anal fissure Home Medications ?Medication ?Instructions ?Recorded ?Last Taken ?Type fluticasone fur. 100 mcg-umeclid 1 ea inhalation QDAY #28 ea 03/05/24 Unknown Rx 62.5 mcg-vilant 25 mcg inhalat.powder (Trelegy Ellipta) bumetanide 1 mg tablet 1 mg PO QDAY #90 tabs 03/28/24 09/20/24 Rx cholecalciferol (vitamin D3) 25 25 mcg PO QDAY #90 caps 03/28/24 09/20/24 Rx mcg (1,000 unit) capsule (Vitamin D3) esomeprazole magnesium 40 mg 40 mg PO QDAY #90 caps 03/28/24 09/20/24 Rx capsule,delayed release metoprolol succinate 25 mg 25 mg PO QDAY #90 tabs 03/28/24 09/20/24 Rx tablet,extended release 24 hr montelukast 10 mg tablet 10 mg PO QDAY #90 tabs 03/28/24 09/20/24 Rx rosuvastatin 10 mg tablet 10 mg PO QHS #90 tabs 03/28/24 Unknown Rx valsartan 80 mg tablet 80 mg PO QDAY #90 tabs 03/28/24 09/20/24 Rx sennosides 8.6 mg-docusate sodium 1 tab-cap PO QHS #30 tabs 06/28/24 Unknown Rx 50 mg tablet semaglutide 1 mg/dose (4 mg/3 mL) 1 mg (0.75 mL) subcut QWEEK #3 mL 07/20/24 09/14/24 Rx subcutaneous pen injector indomethacin 25 mg capsule 25 mg PO BID #60 caps 07/26/24 09/20/24 Rx albuterol sulfate 90 mcg/actuation 2 puff inhalation Q6H PRN 08/16/24 Unknown Rx aerosol inhaler shortness of breath or wheezing #8.5 grams hydroxyzine HCl 50 mg tablet 100 mg (2 x 50 mg) PO BID #90 08/16/24 09/20/24 Rx TABLETS Allergy/AdvReac Type Severity Reaction Status Date / Time hydrocodone Allergy RASH Verified 09/20/24 14:41 piperacillin (From Zosyn) Allergy Hives Verified 09/20/24 22:20 Sulfa (Sulfonamide Allergy UNSURE Verified 09/20/24 14:41 Antibiotics) tazobactam (From Zosyn) Allergy Hives Verified 09/20/24 22:20 meloxicam AdvReac Severe facial Verified 09/20/24 14:41 swellling naproxen AdvReac Nausea Verified 09/20/24 14:41 tramadol AdvReac Nausea Verified 09/20/24 16:02 trazodone AdvReac PT UNSURE Verified 09/20/24 14:41 OF REACTION Family History Sister Bleeding disorder Diabetes Epilepsy Father Heart disease Hypertension Bowel disease Mother Heart disease Hyperlipemia Surgical History History of rectal surgery H/O: section S/P rotator cuff surgery Social History adopted: No household members: none number of children: 3 current occupational status: retired pets and animals: Yes (2) pets and animals: fish sexually active: No Smoking Status: Current every day smoker tobacco type: cigarettes Tobacco: How many years used: 45 alcohol intake: never substance use type: does not use caffeine: Yes (2) Type: coffee what type of physical activity do you participate in: none do you feel safe at home: Yes Physical Exam Const alert, oriented x3 and no apparent distress General Appearance: cooperative HEENT normocephalic and head/scalp atraumatic Eyes PERRL and EOMs intact bilaterally Neck supple and No nodes Resp normal air movement and clear to auscultation bilaterally Cardio regular rate and regular rhythm GI soft to palpation and non-distended GI Narrative: mild soreness Extremity General Extremity: Negative for edema Skin no rashes or lesions noted Neuro CN's II-XII intact bilaterally Lab / Micro Data Attestation: I reviewed the patient's lab results. 09/21/24 06:10 09/21/24 06:10 Labs: Laboratory Results - last 24 hr 09/20/24 16:07: WBC 22.9 H, RBC 4.76, Hgb 14.2, Hct 40.6, MCV 85.3, MCH 29.8, MCHC 35.0, RDW Std Deviation 44.5 H, RDW Coeff of Jose Luis 14.3, Plt Count 271, MPV 9.6, Immature Gran % (Auto) 0.600, Neut % (Auto) 79.7 H, Lymph % (Auto) 13.9 L, Dale % (Auto) 4.7, Eos % (Auto) 0.7, Baso % (Auto) 0.4, Absolute Neuts (auto) 18.2 H, Absolute Lymphs (auto) 3.19, Nucleated RBC % 0, Sodium 134, Potassium 4.0, Chloride 97 L, Carbon Dioxide 26.1, Anion Gap 11, BUN 15, Creatinine 1.04, Estim Creat Clear Calc 56.68, Est GFR (MDRD) Non-Af 59 L, BUN/Creatinine Ratio 14.1, Glucose 109 H, Hemoglobin A1c 6.6 H, Lactic Acid 1.3, Calcium 9.6, Phosphorus 3.3, Magnesium 2.0, Total Bilirubin 0.67, AST 17, ALT 18, Alkaline Phosphatase 68, Total Protein 7.0, Albumin 3.9, Globulin 3.1, Albumin/Globulin Ratio 1.3, TSH 1.500 09/20/24 23:45: Lactic Acid 1.5 09/21/24 00:25: Urine Color Yellow, Urine Clarity Sl. Cloudy, Urine pH 5.0, Ur Specific [place] 1.015, Urine Protein 30 H, Urine Glucose (UA) Normal, Urine Ketones Negative, Urine Occult Blood Negative, Urine Nitrite Negative, Urine Bilirubin Negative, Urine Urobilinogen Normal, Ur Leukocyte Esterase 25 H, Urine RBC 0 SEEN, Urine WBC 0-5 SEEN, Ur Squamous Epith Cells 0-5 SEEN, Urine Bacteria 1+, Urine Mucus 0 SEEN 09/21/24 06:10: WBC 16.0 H, RBC 3.97 L, Hgb 11.4 L, Hct 34.1 L, MCV 85.9, MCH 28.7, MCHC 33.4, RDW Std Deviation 45.1 H, RDW Coeff of Jose Luis 14.5, Plt Count 235, MPV 9.9, Immature Gran % (Auto) 0.600, Neut % (Auto) 75.7 H, Lymph % (Auto) 16.0 L, Dale % (Auto) 6.0, Eos % (Auto) 1.3, Baso % (Auto) 0.4, Absolute Neuts (auto) 12.1 H, Absolute Lymphs (auto) 2.57, Nucleated RBC % 0, Sodium 136, Potassium 4.9, Chloride 105, Carbon Dioxide 21.6, Anion Gap 10, BUN 14, Creatinine 0.94, Estim Creat Clear Calc 62.88, Est GFR (MDRD) Non-Af 67, BUN/Creatinine Ratio 14.6, Glucose 93, Calcium 8.7, Total Bilirubin 0.61, AST 26, ALT 14, Alkaline Phosphatase 66, Total Protein 6.2, Albumin 3.3 L, Globulin 2.8, Albumin/Globulin Ratio 1.2 Imaging Radiology Impression Abdomen/Pelvis CT 09/20/24 17:15 IMPRESSION: Sigmoid colon diverticulitis. Associated sigmoid colon wall abscess. Additional abscess within the pelvis abutting the undersurface of the uterus. Reading Location: [place] [address]
[2024-09-22] VITALS (25 sets, daily range): BP systolic 105–151; BP diastolic 55–106; PULSE 69–166; RESP 16–33; TEMP 36.7–36.9; O2SAT 87–99; BMI 34.3
[2024-09-22] MEDS: Cefepime HCl 2 GM in 0.9% Normal Saline (100mL MB+) 100 ML IV ×3 (04:59→21:34)
[2024-09-22] MEDS: Lactobacillis Acidophilus 1 CAP PO ×2 (04:59→13:09)
[2024-09-22] MEDS: 0.9% Saline Lock 10 ML Syringe IV (04:59)
[2024-09-22 05:11] LABS: Absolute Lymphocyte Count 2.71 X10^3/uL (0.83-4.51); Absolute Neutrophil Count 12.7 X10^3/uL (2.0-7.7); Basophil# 0.08 X10^3/uL; Basophil% 0.5 % (0-1); Eosinophil# 0.32 X10^3/uL; Eosinophils% 1.9 % (0-5); Hematocrit 34.6 % (37-47); Hemoglobin 11.6 g/dL (12.0-15.0); Lymphocyte # 2.71 X10^3/ul (0.83-4.51); Lymphocyte % 15.9 % (19-41); Mean Corp Hgb Conc 33.5 g/dL (32-36); Mean Corpuscular Hgb 28.4 pg (27.0-32.0); Mean Corpuscular Volume 84.8 fL (81-99); Mean Platelet Vol. 9.8 fl (6.2-12.0); Monocyte# 1.11 X10^3/uL; Monocyte% 6.5 % (0-10); NRBC Flagged by Analyzer 0 % (0-5); Neutrophil # 12.73 X10^3/uL (2.7-7.7); Neutrophil % 74.7 % (47-70); Platelet Count 272 K/mm3 (150-450); RBC Distribution Width CV 14.6 % (11.6-14.6); RBC Distribution Width SD 45.2 fl (35.1-43.9); Red Blood Count 4.08 M/mm3 (4.2-5.4)
[2024-09-22] MEDS: metroNIDAZOLE 500 MG/100 ML BAG 100 MG IV ×3 (05:35→22:41)
[2024-09-22 05:40] LABS: Anion Gap 13 (5-15); BUN 7 mg/dL (4-19); BUN/Creat Ratio 9.3 RATIO (10-20); Calcium,Total 9.3 mg/dL (7.6-11.0); Carbon Dioxide 20.4 mmol/L (21.0-32.0); Chloride 101 mmol/L (98-108); EST Glomerular Filtration Rate 81 (>60); Estimated Creatinine Clearance 73.89 ml/min (50-250); Glucose 102 mg/dL (70-99); Potassium 3.7 mmol/L (3.3-5.1); Sodium Level 134 mmol/L (133-145)
--- NOTE | 2024-09-22 06:57 | PCM.PN.SRG ---
Subjective Subjective Patient seen and examined during AM rounds. She is found resting in bed. She states that she has a little wore out from the mornings activities which included a trip to radiology for CT imaging and an echo because she is now in atrial fibrillation with about a precedent. Objective Data Objective Data Vital Signs: Vital Signs Temp Pulse Resp BP Pulse Ox O2 Del Method O2 Flow Rate 98.1 F 79 26 H 145/77 H 98 Nasal Cannula 2 09/22/24 05:00 09/22/24 06:00 09/22/24 06:00 09/22/24 06:00 09/22/24 06:00 09/22/24 06:00 09/22/24 06:00 Oxygen Flow Rate (L/min) 2 Oxygen Delivery Method Nasal Cannula Weight: 201 lb 0.985 oz Body Mass Index (BMI) 34.3 Intake & Output: Intake and Output for Last 24 Hours 09/20/24 09/21/24 09/22/24 23:59 23:59 23:59 Intake Total 1060 / 1060 4661.5 / 4661.5 200 / 200 Output Total 0 / 0 Balance 1060 / 1060 4661.5 / 4661.5 200 / 200 Lab / Micro Data 09/22/24 05:02 09/22/24 05:02 Labs: Laboratory Results - last 24 hr 09/21/24 06:10: Sodium 136, Potassium 4.9, Chloride 105, Carbon Dioxide 21.6, Anion Gap 10, BUN 14, Creatinine 0.94, Estim Creat Clear Calc 62.88, Est GFR (MDRD) Non-Af 67, BUN/Creatinine Ratio 14.6, Glucose 93, Calcium 8.7, Total Bilirubin 0.61, AST 26, ALT 14, Alkaline Phosphatase 66, Total Protein 6.2, Albumin 3.3 L, Globulin 2.8, Albumin/Globulin Ratio 1.2 09/22/24 05:02: WBC 17.0 H, RBC 4.08 L, Hgb 11.6 L, Hct 34.6 L, MCV 84.8, MCH 28.4, MCHC 33.5, RDW Std Deviation 45.2 H, RDW Coeff of Jose Luis 14.6, Plt Count 272, MPV 9.8, Immature Gran % (Auto) 0.500, Neut % (Auto) 74.7 H, Lymph % (Auto) 15.9 L, Pope % (Auto) 6.5, Eos % (Auto) 1.9, Baso % (Auto) 0.5, Absolute Neuts (auto) 12.7 H, Absolute Lymphs (auto) 2.71, Nucleated RBC % 0, Sodium 134, Potassium 3.7, Chloride 101, Carbon Dioxide 20.4 L, Anion Gap 13, BUN 7, Creatinine 0.80, Estim Creat Clear Calc 73.89, Est GFR (MDRD) Non-Af 81, BUN/Creatinine Ratio 9.3 L, Glucose 102 H, Calcium 9.3 Physical Exam Const oriented x3 and no apparent distress Resp normal respiratory effort GI GI Narrative: Minimal tenderness in the suprapubic region, otherwise benign (soft and nondistended) Assessment & Plan Assessment/Plan (1) Abscess of sigmoid colon due to diverticulitis: PLAN: Patient is 64-year-old female admitted with complicated diverticulitis, first episode. Patient has had a mixed clinical appearance today with new onset atrial fibrillation and mild increase in her white blood cell count, however, she remains afebrile, with decreased tenderness, and repeat CT imaging shows improvement in the inflammatory appearance of the colon. But this mixed appearance I am inclined to largely maintain the current course as I take her CT imaging and clinical exam to mean she is responding appropriately to conservative measures. Will plan to advance to full liquid diet today and assess for tolerance. Enrique Peña MD General Surgery Endocrine Surgery Pager: [facility] [address] [place] [address], [facility], [address] [place] [address] Office: [phone]
--- NOTE | 2024-09-22 07:37 | CT_ITS ---
PROCEDURE: ABDOMEN/PELVIS WITH CONTRAST 09/22/2024 REASON FOR EXAM: F/U COMPLICATED DIVERTICULITIS TECHNIQUE: ABDOMEN/PELVIS WITH CONTRAST. Coronal and Sagittal reconstruction series were provided. ORAL CONTRAST TYPE: Gastrografin CONTRAST: Isovue-300 VOLUME: 100 mL One or more dose reduction techniques were used (e.g., Automated exposure control, adjustment of the mA and/or kV according to patient size, use of iterative reconstruction technique. RADIATION DOSE SUMMARY: CTDlvol: 17 mGy DLP: 1113.38 mGycm COMPARISON: Prior study dated September 20, 2024. FINDINGS: Lung bases: Mild dependent atelectasis Liver: Diffuse fatty infiltration. Hepatomegaly. Gallbladder: Tiny radiopacities along the dependent portion of the gallbladder lumen. This may represent layering of tiny gallstones. Spleen: Normal size. Pancreas: Normal size without evidence of mass surrounding inflammation or ductal dilation. Adrenals: Unremarkable. Kidneys: Normal renal sizes. No hydronephrosis. Low-lying right kidney. Bladder: Unremarkable. Reproductive Organs: Calcified fibroid uterus Bowel: Sigmoid diverticulosis and diverticulitis. There has been improvement in the inflammatory change. Interval decrease in size of the small fluid collection in the anti mesenteric side of the sigmoid colon presently measuring 2 cm. Appendix: The appendix is not identified. There is no inflammatory process identified in the right lower quadrant to suggest appendicitis. Lymph nodes: Unremarkable. Vasculature: Mild diffuse atherosclerotic calcifications are noted. Peritoneum / Retroperitoneum: Unremarkable Bones: Degenerative changes of the spine. CT/Abdomen/Pelvis WITH Contrast IMPRESSION: Residual inflammatory changes seen in the sigmoid colon as described with inter brittaney improvement in the previously seen fluid collection in the anti mesenteric side of the sigmoid colon. Reading Location: [place] [id number]
--- NOTE | 2024-09-22 09:09 | PN.HOSP_ITS ---
Reason for Visit Reason for Visit: Diagnoses Elevated white blood cell count, unspecified (09/20/24) Obesity, class 1 (09/20/24) Diverticulitis of large intestine with perforation and abscess without bleeding (09/20/24) Anaphylactic reaction due to adverse effect of correct drug or medicament properly administered, initial encounter (09/20/24) Other specified postprocedural states (09/20/24) Objective Data Objective Data Vital Signs: Vital Signs Temp Pulse Resp BP Pulse Ox O2 Del Method O2 Flow Rate 98.1 F 117 H 24 H 151/84 H 92 Nasal Cannula 2 09/22/24 05:00 09/22/24 07:22 09/22/24 07:22 09/22/24 07:00 09/22/24 07:22 09/22/24 07:22 09/22/24 07:22 Oxygen Flow Rate (L/min) 2 Oxygen Delivery Method Nasal Cannula Weight: 201 lb 0.985 oz Body Mass Index (BMI) 34.3 Intake & Output: Intake and Output for Last 24 Hours 09/20/24 09/21/24 09/22/24 23:59 23:59 23:59 Intake Total 1060 / 1060 4661.5 / 4661.5 200 / 200 Output Total 0 / 0 Balance 1060 / 1060 4661.5 / 4661.5 200 / 200 Lab / Micro Data 09/22/24 05:02 09/22/24 05:02 Labs: Laboratory Results - last 24 hr 09/22/24 05:02: WBC 17.0 H, RBC 4.08 L, Hgb 11.6 L, Hct 34.6 L, MCV 84.8, MCH 28.4, MCHC 33.5, RDW Std Deviation 45.2 H, RDW Coeff of Jose Luis 14.6, Plt Count 272, MPV 9.8, Immature Gran % (Auto) 0.500, Neut % (Auto) 74.7 H, Lymph % (Auto) 15.9 L, Eddy % (Auto) 6.5, Eos % (Auto) 1.9, Baso % (Auto) 0.5, Absolute Neuts (auto) 12.7 H, Absolute Lymphs (auto) 2.71, Nucleated RBC % 0, Sodium 134, Potassium 3.7, Chloride 101, Carbon Dioxide 20.4 L, Anion Gap 13, BUN 7, Creatinine 0.80, Estim Creat Clear Calc 73.89, Est GFR (MDRD) Non-Af 81, BUN/Creatinine Ratio 9.3 L, Glucose 102 H, Calcium 9.3 Physical Exam Narrative Seen and examined. 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 No twelve-lead EKG in the chart. Left lower quadrant abdominal pain is better. She moved her bowel large amount of solid. She was admitted with abdominal pain mainly on LLQ but also on RLQ for last few days along with cold, shivering/chills and fever. Denies prior history of diverticulitis. Blood pressure is better 145/77, 151/84 History of COPD and wheezing Physical exam General: Alert, Oriented x3, Cooperative HEENT: Atraumatic, PERRLA, EOMI, Normocephalic. Oral: No Gingival or Mucosal Lesions/ Ulcerations Neck: Supple, No JVD, Negative Carotid Bruits Chest wall/Lungs: Air entry diminished in bilateral lung bases. Mild expiratory rhonchi Cardiovascular: A-fib, RVR, no M/G/R Abdomen: Bowel Sounds Present, Soft, mild tenderness in LLQ on deep palpation better than yesterday Non-Distended : No dysuria. No renal angle tenderness. No suprapubic tenderness. Extremities: No edema, Capillary Refill Less than 3 Seconds Skin: No rashes, No breakdown Musculoskeletal: No Tenderness to Palpation of Joints or Extremities Neurological: Cranial nerves II-XII grossly intact, DTR 2+/4. No acute focal neurological deficit. Psych/Mental Status: Normal Affect, Appropriate. Assessment & Plan Assessment/Plan (1) Abscess of sigmoid colon due to diverticulitis: (2) Abscess of pelvis: (3) Leukocytosis: QUALIFIERS: Leukocytosis type: unspecified Qualified Code(s): D 72.829 - Elevated white blood cell count, unspecified (4) Anaphylactic reaction due to adverse effect of correct drug or medicament properly administered, initial encounter: (5) History of rectal surgery: (6) Obesity (BMI 30.0-34.9): PLAN: Plan 64-year-old female admitted with lower abdominal pain that started Thursday, constipation. Bilateral lower quadrant abdominal pain left worse than right after having diarrhea on Thursday, Carol 14. Passing flatus. She stated her pain gets better with walking and exertion but feels more when she is laying down and resting. 1. Abdominal pain due to sigmoid colon diverticulitis complicated with sigmoid colonic and pelvic abscesses: Patient blood pressure never been below systolic 90 mmHg, her baseline about 110- 120 mmHg. Does not have clear-cut signs of endorgan hypoperfusion therefore sepsis ruled out CT scan of the abdomen and pelvis with IV contrast that revealed sigmoid colon diverticulitis with associated sigmoid colon wall abscess and additional abscess within the pelvis abutting the undersurface of the uterus - Admit to ICU due to multiple abscesses complicated by recent anaphylactic reaction. Plan: Admitted in ICU as per sepsis protocol. Initially patient was given 2 L IV bolus, given IV Zosyn and developed anaphylactic reaction, therefore stopped. She received clindamycin and metronidazole. Surgeon was consulted and seen. Patient had 2 doses of IV clindamycin therefore 2 more doses. Continue IV Flagyl and Levaquin added. ID consult for further recommendation. 09/22: ID consult reviewed and appreciated. IV antibiotic changed to cefepime and Flagyl, would have low risk of prostate DVT with Zosyn. Patient is scheduled for CT abdomen with oral contrast to see any change from the previous CT scan. 2. Leukocytosis of 22.9K due to sigmoid diverticulitis and complicated abscesses: Leukocytosis improving. A-fib RVR: Twelve-lead EKG ordered. No previous history of A-fib documented in the chart. Cardizem 50 mg IV bolus ordered for conversant. 2D echo is ordered. 3. Suspected Anaphylactic Reaction to piperacillin-tazobactam in ER: Piperacillin-tazobactam added to patient's list of allergies. Patient had facial swelling generalized erythematous maculopapular rash and itching and was treated with epinephrine, diphenhydramine and IV Pepcid. Zosyn was stopped. 4. History of rectal surgery; due to rectal wall muscle weakness done at outside facility by Dr. Grissom ([id number]) compounding #1 - #3 - Noted. 5. Obesity; with BMI of 32.8 this admission on semaglutide adding to the burden of disease outlined from #1 - #4 - Weight loss will be recommended. Check TSH. This complicates her case and may hamper recovery. 6. Essential hypertension; on metoprolol, valsartan and bumetanide - Hold oral regimen in favor IV hydralazine IV prn for systolic blood pressure > 160 mmHg. 7. Hyperlipidemia; on rosuvastatin - Hold statin until patient cleared for oral intake. 8. DM-2; currently untreated -A1c 6.6% 9. COPD with history of tobacco use disorder/nicotine dependence: Currently patient not short of breath but has history of intermittent wheezing. Not in exacerbation 10. Mild anxiety and depression; currently not on treatment - Stable. 11. Chronic primary degenerative arthritis of knee: Give acetaminophen prn 18. DVT/GI prophylaxis -Lovenox and SCD. Pantoprazole 40 mg IV daily. Charges/Coding Visit Charges Inpatient E&M: 40736 Subs Hosp L3
--- NOTE | 2024-09-22 09:14 | ECHOD_ITS ---
Reason For Study Reason For Study: AFIB Left Ventricle Normal LV size. The estimated ejection fraction is 65 %. Unable to assess diastolic dysfunction. No regional wall motion abnormalities noted. Right Ventricle Normal RV size. Normal systolic function. Atria The left and right atria are normal. No doppler evidence for ASD. Mitral Valve There is no mitral valve stenosis. Trivial mitral valve insufficiency. Tricuspid Valve There is no tricuspid stenosis. Pulmonary artery systolic pressure is 50 mmHg. Trivial tricuspid valve insufficiency. Aortic Valve Trisinus/trileaflet aortic valve. Mild aortic stenosis. No aortic valve insufficiency. Pulmonic Valve There is no pulmonic valvular stenosis. No pulmonic valve insufficiency. Great Vessels Normal sized aortic root. Pericardium/Pleural No pericardial effusion. MMode/2D Measurements & Calculations LVIDd: 4.4 cm IVSd: 1.00 cm Ao root diam: 3.1 cm LVIDs: 2.8 cm LVPWd: 0.95 cm RVDd: 2.9 cm FS: 35.6 % LAV(MOD-bp): 32.9 ml LVAd ap4: 18.3 cm2 SV(MOD-sp4): 27.5 ml LAV(MOD-bp) Indexed: 16.8 ml/m2 LVLd ap4: 6.4 cm SI(MOD-sp4): 14.0 ml/m2 LAV(MOD-sp2): 28.6 ml EDV(MOD-sp4): 44.3 ml LAV(MOD-sp4): 34.5 ml EDV(sp4-el): 44.4 ml LVAs ap4: 9.9 cm2 LVLs ap4: 5.2 cm ESV(MOD-sp4): 16.8 ml ESV(sp4-el): 16.2 ml EF(MOD-sp4): 62.0 % EF(sp4-el): 63.5 % SV(sp4-el): 28.2 ml LA dimension(2D): 3.3 cm LA A4 area: 14.9 cm2 RA A4 area: 14.0 cm2 TAPSE: 1.7 cm Doppler Measurements & Calculations MV E max margarito: 141.4 cm/sec Ao V2 max: 164.9 cm/sec LV V1 max: 152.6 cm/sec Ao max P.9 mmHg LV V1 max P.3 mmHg PA V2 max: 111.5 cm/sec TR max margarito: 340.8 cm/sec TR max P.5 mmHg ECHO/Echo Complete Interpretation Summary The estimated ejection fraction is 65 %. Unable to assess diastolic dysfunction. Trivial mitral valve insufficiency. Ordering Physician: Bassam Zelaya Referring Physician: JESSICA TORRES Performed By: Pinky Howard RDCS
--- NOTE | 2024-09-22 09:14 | EKG12_ITS ---
Test Reason : EKG CHANGE Blood Pressure : */* mmHG Vent. Rate : 75 BPM Atrial Rate : 75 BPM P-R Int : 152 ms QRS Dur : 80 ms QT Int : 382 ms P-R-T Axes : 23 69 68 degrees QTcB Int : 426 ms Normal sinus rhythm Nonspecific ST and T wave abnormality Abnormal ECG No previous ECGs available Confirmed by CYNTHIA CORADO, JACKIE ([id number]), script editor CECILE RICH ([id number]) on 09/27/2024 6:41:44 AM Referred By: GREGORIO Confirmed By: JACKIE MARIE MD
--- NOTE | 2024-09-22 09:24 | EKG12_ITS ---
Test Reason : AF Blood Pressure : */* mmHG Vent. Rate : 138 BPM Atrial Rate : * BPM P-R Int : * ms QRS Dur : 74 ms QT Int : 258 ms P-R-T Axes : * 70 72 degrees QTcB Int : 390 ms Atrial fibrillation with rapid ventricular response Nonspecific ST abnormality Abnormal ECG No previous ECGs available Confirmed by CYNTHIA CORADO, JACKIE ([id number]), scientific editor RADHA PEREZ ([id number]) on 09/28/2024 1:25:13 PM Referred By: Confirmed By: JACKIE MARIE MD
[2024-09-22] MEDS: dilTIAZem 25 MG/5 ML Vial 15 MG IV BOLUS (09:37)
[2024-09-22] MEDS: Pantoprazole Sodium 40 MG in 0.9% Normal Saline (100mL MB+) 100 ML 330 MG IV (11:37)
[2024-09-22] MEDS: Senna Tablet 1 TABLET PO (11:38)
[2024-09-22] MEDS: Enoxaparin 40 MG/0.4 ML Syringe SC (11:38)
[2024-09-22] MEDS: Metoprolol Tartrate 25 MG Tablet PO ×2 (13:49→21:37)
[2024-09-22] MEDS: dilTIAZem 25 MG/5 ML Vial 10 MG IV BOLUS (13:50)
[2024-09-22] MEDS: Budesonide Respules 0.5 MG/2 ML AMPUL.NEB. INHALATION (19:29)
[2024-09-22] MEDS: Ipratropium/Albuterol Sulfate 3 ML AMPUL.NEB INHALATION (19:30)
[2024-09-23] VITALS (13 sets, daily range): BP systolic 116–159; BP diastolic 63–80; PULSE 71–86; RESP 15–24; TEMP 36.3–37.4; O2SAT 90–98; BMI 34.8
[2024-09-23] MEDS: HYDROmorphone 0.5 MG/0.5 ML SYRINGE IV
[2024-09-23] MEDS: Ondansetron 4 MG/2 ML Vial IV ×2 (00:14→14:11)
[2024-09-23] MEDS: Cefepime HCl 2 GM in 0.9% Normal Saline (100mL MB+) 100 ML IV ×3 (05:57→23:08)
[2024-09-23] MEDS: Budesonide Respules 0.5 MG/2 ML AMPUL.NEB. INHALATION ×2 (06:11→19:22)
[2024-09-23] MEDS: Ipratropium/Albuterol Sulfate 3 ML AMPUL.NEB INHALATION ×2 (06:11→19:22)
--- NOTE | 2024-09-23 06:20 | EKG12_ITS ---
Test Reason : CP Blood Pressure : */* mmHG Vent. Rate : 85 BPM Atrial Rate : 85 BPM P-R Int : 120 ms QRS Dur : 72 ms QT Int : 348 ms P-R-T Axes : 56 72 74 degrees QTcB Int : 414 ms Normal sinus rhythm Nonspecific ST abnormality Abnormal ECG No previous ECGs available Confirmed by CYNTHIA CORADO, JACKIE ([id number]), production editor CECILE RICH ([id number]) on 09/27/2024 6:38:45 AM Referred By: DR Enciso Confirmed By: JACKIE MARIE MD
[2024-09-23] MEDS: metroNIDAZOLE 500 MG/100 ML BAG 100 MG IV ×3 (06:57→22:02)
[2024-09-23 07:18] LABS: Absolute Lymphocyte Count 1.62 X10^3/uL (0.83-4.51); Absolute Neutrophil Count 8.6 X10^3/uL (2.0-7.7); Basophil# 0.06 X10^3/uL; Basophil% 0.5 % (0-1); Eosinophil# 0.23 X10^3/uL; Hematocrit 34.3 % (37-47); Hemoglobin 11.3 g/dL (12.0-15.0); Lymphocyte # 1.62 X10^3/ul (0.83-4.51); Lymphocyte % 13.9 % (19-41); Mean Corp Hgb Conc 32.9 g/dL (32-36); Mean Corpuscular Hgb 28.2 pg (27.0-32.0); Mean Corpuscular Volume 85.5 fL (81-99); Mean Platelet Vol. 9.9 fl (6.2-12.0); Monocyte# 1.05 X10^3/uL; NRBC Flagged by Analyzer 0 % (0-5); Neutrophil % 73.7 % (47-70); Platelet Count 238 K/mm3 (150-450); RBC Distribution Width CV 14.6 % (11.6-14.6); RBC Distribution Width SD 45.1 fl (35.1-43.9); Red Blood Count 4.01 M/mm3 (4.2-5.4); White Blood Count 11.7 K/mm3 (4.4-11.0)
--- NOTE | 2024-09-23 07:26 | PCM.PN.SRG ---
Subjective Subjective Patient seen and examined during AM rounds. She is found resting in bed. She states she had some mild nausea and some abdominal soreness but she otherwise states that she is continue to feel better each day. She reports ongoing diarrhea. Objective Data Objective Data Vital Signs: Vital Signs Temp Pulse Resp BP Pulse Ox O2 Del Method O2 Flow Rate 97.4 F L 86 24 H 143/65 H 90 Nasal Cannula 3 09/23/24 04:00 09/23/24 06:13 09/23/24 06:13 09/23/24 04:00 09/23/24 06:13 09/23/24 06:13 09/23/24 06:13 Oxygen Flow Rate (L/min) 3 Oxygen Delivery Method Nasal Cannula Weight: 203 lb 14.841 oz Body Mass Index (BMI) 34.8 Intake & Output: Intake and Output for Last 24 Hours 09/21/24 09/22/24 09/23/24 23:59 23:59 23:59 Intake Total 4661.5 / 4661.5 700 / 950 350 / 350 Output Total 0 / 0 Balance 4661.5 / 4661.5 700 / 950 350 / 350 Lab / Micro Data 09/23/24 07:07 09/23/24 07:07 Labs: Laboratory Results - last 24 hr 09/23/24 07:07: WBC 11.7 H, RBC 4.01 L, Hgb 11.3 L, Hct 34.3 L, MCV 85.5, MCH 28.2, MCHC 32.9, RDW Std Deviation 45.1 H, RDW Coeff of Jose Luis 14.6, Plt Count 238, MPV 9.9, Immature Gran % (Auto) 0.900, Neut % (Auto) 73.7 H, Lymph % (Auto) 13.9 L, [place] % (Auto) 9.0, Eos % (Auto) 2.0, Baso % (Auto) 0.5, Absolute Neuts (auto) 8.6 H, Absolute Lymphs (auto) 1.62, Nucleated RBC % 0 Radiography Diagnostic Testing: Radiology Impression Abdomen/Pelvis CT 09/22/24 07:37 IMPRESSION: Residual inflammatory changes seen in the sigmoid colon as described with interval improvement in the previously seen fluid collection in the anti mesenteric side of the sigmoid colon. Reading Location: [facility]-1 Echocardiogram 09/22/24 09:14 Interpretation Summary The estimated ejection fraction is 65 %. Unable to assess diastolic dysfunction. Trivial mitral valve insufficiency. Ordering Physician: Bassam Zelaya Referring Physician: JESSICA TORRES Performed By: Pinky Howard RDCS Physical Exam Const oriented x3 and no apparent distress Resp normal respiratory effort GI GI Narrative: Obese, nondistended, soft, patient describing diffuse soreness but no real tenderness with palpation?including the left lower quadrant and suprapubic regions Assessment & Plan Assessment/Plan (1) Abscess of sigmoid colon due to diverticulitis: PLAN: Patient is 64-year-old female admitted with complicated diverticulitis, first episode. Patient appears to be clinically improved now hospital day #3. Her abdominal exam is benign and her white count has decreased from 17 yesterday to [address] imaging showed improvement in the peritoneal abscesses. With these clinical improvements I recommend advancing to a transitional diet and considering what patient's outpatient antibiotic course will be given her recent anaphylactic episode and other pre-existing allergies. From a surgical standpoint, if she is tolerating the diet advancement and her transition oral antibiotics she could be considered for discharge to home. Would asked that she follows up with me in approximately 2 weeks following discharge as an outpatient so we can ensure that she is resolving her diverticulitis as well as that her up for an outpatient colonoscopy. Enrique Peña MD General Surgery Endocrine Surgery Pager: [facility] [address] [place] [address] [address] [place] [address] Office: [phone] Charges/Coding Visit Charges Inpatient E&M: 17213 Subs Hosp L2
[2024-09-23 07:36] LABS: Anion Gap 12 (5-15); BUN 5 mg/dL (4-19); BUN/Creat Ratio 6.7 RATIO (10-20); Calcium,Total 9.2 mg/dL (7.6-11.0); Carbon Dioxide 24.3 mmol/L (21.0-32.0); Chloride 99 mmol/L (98-108); Creatinine, Serum 0.73 mg/dL (0.70-1.20); EST Glomerular Filtration Rate 90 (>60); Estimated Creatinine Clearance 76.24 ml/min (50-250); Glucose 110 mg/dL (70-99); Potassium 3.5 mmol/L (3.3-5.1); Sodium Level 135 mmol/L (133-145)
[2024-09-23] MEDS: Lactobacillis Acidophilus 1 CAP PO ×4 (07:56→23:06)
[2024-09-23] MEDS: hydrOXYzine PAM 25 MG Capsule 100 MG PO (07:57)
[2024-09-23] MEDS: Enoxaparin 40 MG/0.4 ML Syringe SC (08:36)
[2024-09-23] MEDS: Metoprolol Tartrate 25 MG Tablet PO ×3 (08:36→23:06)
[2024-09-23] MEDS: Pantoprazole Sodium 40 MG in 0.9% Normal Saline (100mL MB+) 100 ML 330 MG IV (08:37)
--- NOTE | 2024-09-23 11:02 | PCM.PN.ID ---
Physical Exam Narrative Feeling better, abd less sore, no fever Const alert and no apparent distress General Appearance: cooperative Resp normal air movement and clear to auscultation bilaterally Cardio regular rate and regular rhythm GI soft to palpation GI Narrative: mild tenderness and distension Skin no rashes or lesions noted ID ID: Route of nutrition/ use of supplements: [] Nutritional Intake: [] IV Site: [] Alejandra Catheter: [] Assessment & Plan Assessment/Plan (1) Anaphylactic reaction due to adverse effect of correct drug or medicament properly administered, initial encounter: (2) Abscess of sigmoid colon due to diverticulitis: PLAN: Overall improving. Wbc improved, CT better, sx slowly resolving. Cont cefepime and flagyl, tolerating well. Plan on 10 days total of abx, plan for home will be po cipro 500mg bid and flagyl 500mg tid with stop date 10/01/24. Will follow, d/w dependency case manager
--- NOTE | 2024-09-23 12:19 | PCM.PN.HOSP ---
Reason for Visit Reason for Visit: Diagnoses Elevated white blood cell count, unspecified (09/20/24) Obesity, class 1 (09/20/24) Diverticulitis of large intestine with perforation and abscess without bleeding (09/20/24) Anaphylactic reaction due to adverse effect of correct drug or medicament properly administered, initial encounter (09/20/24) Other specified postprocedural states (09/20/24) Objective Data Objective Data Vital Signs: Vital Signs Temp Pulse Resp BP Pulse Ox O2 Del Method O2 Flow Rate 98.7 F 79 18 159/80 H 94 Nasal Cannula 2 09/23/24 08:46 09/23/24 08:46 09/23/24 08:46 09/23/24 08:46 09/23/24 08:46 09/23/24 08:46 09/23/24 08:46 Oxygen Flow Rate (L/min) 2 Oxygen Delivery Method Nasal Cannula Weight: 203 lb 14.841 oz Body Mass Index (BMI) 34.8 Intake & Output: Intake and Output for Last 24 Hours 09/21/24 09/22/24 09/23/24 23:59 23:59 23:59 Intake Total 4661.5 / 4661.5 700 / 950 550 / 550 Output Total 0 / 0 Balance 4661.5 / 4661.5 700 / 950 550 / 550 Lab / Micro Data 09/23/24 07:07 09/23/24 07:07 Labs: Laboratory Results - last 24 hr 09/23/24 07:07: WBC 11.7 H, RBC 4.01 L, Hgb 11.3 L, Hct 34.3 L, MCV 85.5, MCH 28.2, MCHC 32.9, RDW Std Deviation 45.1 H, RDW Coeff of Jose Luis 14.6, Plt Count 238, MPV 9.9, Immature Gran % (Auto) 0.900, Neut % (Auto) 73.7 H, Lymph % (Auto) 13.9 L, [place] % (Auto) 9.0, Eos % (Auto) 2.0, Baso % (Auto) 0.5, Absolute Neuts (auto) 8.6 H, Absolute Lymphs (auto) 1.62, Nucleated RBC % 0, Sodium 135, Potassium 3.5, Chloride 99, Carbon Dioxide 24.3, Anion Gap 12, BUN 5, Creatinine 0.73, Estim Creat Clear Calc 76.24, Est GFR (MDRD) Non-Af 90, BUN/Creatinine Ratio 6.7 L, Glucose 110 H, Calcium 9.2 Radiography Diagnostic Testing: Radiology Impression Echocardiogram 09/22/24 09:14 Interpretation Summary The estimated ejection fraction is 65 %. Unable to assess diastolic dysfunction. Trivial mitral valve insufficiency. Ordering Physician: Bassam Zelaya Referring Physician: JESSICA TORRES Performed By: Pinky Howard RDCS Physical Exam Narrative Seen and examined. Heart rate is controlled, converted last evening. Currently 70-80 permanent Left lower quadrant abdominal pain is better. She had liquid BM in the morning today She was admitted with abdominal pain mainly on LLQ but also on RLQ for last few days along with cold, shivering/chills and fever. Denies prior history of diverticulitis. Blood pressure is better 145/77, 151/84 History of COPD and wheezing Physical exam General: Alert, Oriented x3, Cooperative HEENT: Atraumatic, PERRLA, EOMI, Normocephalic. Oral: No Gingival or Mucosal Lesions/ Ulcerations Neck: Supple, No JVD, Negative Carotid Bruits Chest wall/Lungs: Air entry diminished in bilateral lung bases. Mild expiratory rhonchi Cardiovascular: A-fib, RVR, no M/G/R Abdomen: Bowel Sounds Present, Soft, mild tenderness in LLQ on deep palpation better than yesterday Non-Distended : No dysuria. No renal angle tenderness. No suprapubic tenderness. Extremities: No edema, Capillary Refill Less than 3 Seconds Skin: No rashes, No breakdown Musculoskeletal: No Tenderness to Palpation of Joints or Extremities Neurological: Cranial nerves II-XII grossly intact, DTR 2+/4. No acute focal neurological deficit. Psych/Mental Status: Severe anxiety Assessment & Plan Assessment/Plan (1) Abscess of sigmoid colon due to diverticulitis: (2) Abscess of pelvis: (3) Leukocytosis: QUALIFIERS: Leukocytosis type: unspecified Qualified Code(s): D72.829 - Elevated white blood cell count, unspecified (4) Anaphylactic reaction due to adverse effect of correct drug or medicament properly administered, initial encounter: (5) History of rectal surgery: (6) Obesity (BMI 30.0-34.9): PLAN: Plan 64-year-old female admitted with lower abdominal pain that started Thursday, constipation. Bilateral lower quadrant abdominal pain left worse than right after having diarrhea on Thursday, September 17. Passing flatus. She stated her pain gets better with walking and exertion but feels more when she is laying down and resting. 1. Abdominal pain due to sigmoid colon diverticulitis complicated with sigmoid colonic and pelvic abscesses: Patient blood pressure never been below systolic 90 mmHg, her baseline about 110- 120 mmHg. Does not have clear-cut signs of endorgan hypoperfusion therefore sepsis ruled out CT scan of the abdomen and pelvis with IV contrast that revealed sigmoid colon diverticulitis with associated sigmoid colon wall abscess and additional abscess within the pelvis abutting the undersurface of the uterus - Admit to ICU due to multiple abscesses complicated by recent anaphylactic reaction. Plan: Admitted in ICU as per sepsis protocol. Initially patient was given 2 L IV bolus, given IV Zosyn and developed anaphylactic reaction, therefore stopped. She received clindamycin and metronidazole. Surgeon was consulted and seen. Patient had 2 doses of IV clindamycin therefore 2 more doses. Continue IV Flagyl and Levaquin added. ID consult for further recommendation. 09/22: ID consult reviewed and appreciated. IV antibiotic changed to cefepime and Flagyl, would have low risk of prostate DVT with Zosyn. Patient is scheduled for CT abdomen with oral contrast to see any change from the previous CT scan. 09/23: WBC count improving. Follow-up CT scan on 09/22 shows interval improvement in abscesses on the antimesenteric side of colon with residual inflammatory changes in sigmoid colon. ID recommended to continue cefepime and Flagyl and plan on 10 days of total antibiotic with discharge antibiotic of Cipro 500 mg twice daily and Flagyl 5 mL 3 times daily, stop date 10/01/2024. 2. Leukocytosis of 22.9K due to sigmoid diverticulitis and complicated abscesses: Leukocytosis improving. A-fib RVR: Twelve-lead EKG ordered. No previous history of A-fib documented in the chart. Cardizem 50 mg IV bolus ordered for conversant. 2D echo is ordered. 09/23: Follow-up EKG on 09/22 shows normal sinus rhythm at 75 beats per. Metoprolol increased to 25 mg 3 times daily. 2D echo shows EF 65%. Trivial MR. 3. Suspected Anaphylactic Reaction to piperacillin-tazobactam in ER: Piperacillin-tazobactam added to patient's list of allergies. Patient had facial swelling generalized erythematous maculopapular rash and itching and was treated with epinephrine, diphenhydramine and IV Pepcid. Zosyn was stopped. 4. History of rectal surgery; due to rectal wall muscle weakness done at outside facility by Dr. Grissom ([id number]) compounding #1 - #3 - Noted. 5. Obesity; with BMI of 32.8 this admission on semaglutide adding to the burden of disease outlined from #1 - #4 - Weight loss will be recommended. Check TSH. This complicates her case and may hamper recovery. 6. Essential hypertension; on metoprolol, valsartan and bumetanide - Hold oral regimen in favor IV hydralazine IV prn for systolic blood pressure > 160 mmHg. 7. Hyperlipidemia; on rosuvastatin - Hold statin until patient cleared for oral intake. 8. DM-2; currently untreated -A1c 6.6% 9. COPD with history of tobacco use disorder/nicotine dependence: Currently patient not short of breath but has history of intermittent wheezing. Not in exacerbation 10. Severe anxiety and depression; currently not on treatment 09/23: Patient on high-dose of hydroxyzine 50 mg twice daily, decreased to 25 mg twice daily. BuSpar 10 mg twice daily ordered. 11. Chronic primary degenerative arthritis of knee: Give acetaminophen prn 18. DVT/GI prophylaxis -Lovenox and SCD. Pantoprazole 40 mg IV daily. Laboratory Results 09/23/24 07:07: WBC 11.7 H, RBC 4.01 L, Hgb 11.3 L, Hct 34.3 L, MCV 85.5, MCH 28.2, MCHC 32.9, RDW Std Deviation 45.1 H, RDW Coeff of Jose Luis 14.6, Plt Count 238, MPV 9.9, Immature Gran % (Auto) 0.900, Neut % (Auto) 73.7 H, Lymph % (Auto) 13.9 L, [place] % (Auto) 9.0, Eos % (Auto) 2.0, Baso % (Auto) 0.5, Absolute Neuts (auto) 8.6 H, Absolute Lymphs (auto) 1.62, Nucleated RBC % 0, Sodium 135, Potassium 3.5, Chloride 99, Carbon Dioxide 24.3, Anion Gap 12, BUN 5, Creatinine 0.73, Estim Creat Clear Calc 76.24, Est GFR (MDRD) Non-Af 90, BUN/Creatinine Ratio 6.7 L, Glucose 110 H, Calcium 9.2 Clinical Impression(s) from Imaging Studies Abdomen/Pelvis CT 09/20/24 17:15 IMPRESSION: Sigmoid colon diverticulitis. Associated sigmoid colon wall abscess. Additional abscess within the pelvis abutting the undersurface of the uterus. Abdomen/Pelvis CT 09/22/24 07:37 IMPRESSION: Residual inflammatory changes seen in the sigmoid colon as described with interval improvement in the previously seen fluid collection in the anti mesenteric side of the sigmoid colon. Reading Location: [facility] Echocardiogram 09/22/24 09:14 Interpretation Summary The estimated ejection fraction is 65 %. Unable to assess diastolic dysfunction. Trivial mitral valve insufficiency. Charges/Coding Visit Charges Inpatient E&M: 37305 Subs Hosp L2
[2024-09-23] MEDS: busPIRone 5 MG Tablet 10 MG PO ×2 (14:03→23:07)
[2024-09-23] MEDS: 0.9% Saline Lock 10 ML Syringe IV ×2 (14:13)
[2024-09-23] MEDS: Albuterol 2.5 MG/3 ML VIAL.NEB. INHALATION (14:45)
--- NOTE | 2024-09-23 15:13 | CHAPLAIN ---
Type of Pastoral Visit _x__ Initial Visit ___ Follow-up Visit ___ On-call Visit ___ General Patient Visit ___ Spiritual Assessment ___ Family Conference ___ Bereavement ___ Rapid Response ___ Code Blue ___ Other (describe below) Pastoral Care Referral From _x__ Patient ___ Family ___ Nurse ___ Physician ___ Spring Assembler ___ Fence Installer Helper ___ Other (describe below) Sacrament/Intervention ___ Active listening ___ Anointing ___ Faith ___ Bereavement ___ Communion ___ [place] exploration ___ ___ Life review ___ Prayer ___ Reconciliation ___ Sacrament of Sick _x__ Supportive presence ___ Wedding ___ Other (describe below) Pastoral Comments patient is on the phone and states that it is not a good time for a visit but agrees to a later attempt; at second try the patient is unavailable
[2024-09-24] VITALS (15 sets, daily range): BP systolic 103–150; BP diastolic 53–96; PULSE 40–110; RESP 16–20; TEMP 36.2–37.4; O2SAT 93–97; BMI 35.6
--- NOTE | 2024-09-24 01:02 | EKG12_ITS ---
Test Reason : BRADYCARDIA Blood Pressure : */* mmHG Vent. Rate : 39 BPM Atrial Rate : 39 BPM P-R Int : 142 ms QRS Dur : 78 ms QT Int : 484 ms P-R-T Axes : 58 74 78 degrees QTcB Int : 389 ms Critical Test Result: Low HR Marked sinus bradycardia Abnormal ECG When compared with ECG of 23-Sep-2024 06:24, MANUAL COMPARISON REQUIRED DATA IS UNCONFIRMED Confirmed by CYNTHIA CORADO, JACKIE ([id number]), film or videotape editor CECILE RICH ([id number]) on 09/27/2024 6:38:20 AM Referred By: ARAIZA Confirmed By: JACKIE MARIE MD
[2024-09-24] MEDS: Digoxin 250 MCG/ML Ampul IV (05:46)
[2024-09-24] MEDS: 0.9% Saline Lock 10 ML Syringe IV ×2 (05:46→22:10)
[2024-09-24] MEDS: Cefepime HCl 2 GM in 0.9% Normal Saline (100mL MB+) 100 ML IV ×3 (05:47→22:18)
[2024-09-24] MEDS: metroNIDAZOLE 500 MG/100 ML BAG 100 MG IV ×3 (06:45→23:05)
[2024-09-24 06:53] LABS: Absolute Lymphocyte Count 1.77 X10^3/uL (0.83-4.51); Basophil# 0.06 X10^3/uL; Basophil% 0.5 % (0-1); Eosinophil# 0.16 X10^3/uL; Eosinophils% 1.4 % (0-5); Hematocrit 32.6 % (37-47); Lymphocyte # 1.77 X10^3/ul (0.83-4.51); Lymphocyte % 15.8 % (19-41); Mean Corp Hgb Conc 33.7 g/dL (32-36); Mean Corpuscular Hgb 28.6 pg (27.0-32.0); Mean Corpuscular Volume 84.9 fL (81-99); Mean Platelet Vol. 10.3 fl (6.2-12.0); Monocyte# 1.07 X10^3/uL; Monocyte% 9.6 % (0-10); NRBC Flagged by Analyzer 0 % (0-5); Neutrophil # 7.97 X10^3/uL (2.7-7.7); Neutrophil % 71.4 % (47-70); Platelet Count 257 K/mm3 (150-450); RBC Distribution Width CV 14.6 % (11.6-14.6); RBC Distribution Width SD 44.9 fl (35.1-43.9); Red Blood Count 3.84 M/mm3 (4.2-5.4); White Blood Count 11.2 K/mm3 (4.4-11.0)
[2024-09-24] MEDS: Ipratropium/Albuterol Sulfate 3 ML AMPUL.NEB INHALATION ×3 (06:58→21:36)
[2024-09-24] MEDS: Budesonide Respules 0.5 MG/2 ML AMPUL.NEB. INHALATION ×2 (06:58→21:36)
[2024-09-24 07:31] LABS: Anion Gap 11 (5-15); BUN 5 mg/dL (4-19); BUN/Creat Ratio 8.1 RATIO (10-20); Calcium,Total 8.8 mg/dL (7.6-11.0); Chloride 103 mmol/L (98-108); Creatinine, Serum 0.68 mg/dL (0.70-1.20); EST Glomerular Filtration Rate 96 (>60); Estimated Creatinine Clearance 77.16 ml/min (50-250); Glucose 111 mg/dL (70-99); Potassium 3.4 mmol/L (3.3-5.1); Sodium Level 139 mmol/L (133-145)
--- NOTE | 2024-09-24 08:30 | PCM.CONS.C ---
Assessment & Plan Assessment/Plan (1) A-fib: QUALIFIERS: Atrial fibrillation type: paroxysmal Qualified Code(s): I48.0 - Paroxysmal atrial fibrillation PLAN: Patient's had episodes of atrial fibrillation with a rapid regular response intermittently since her admission 4 days ago. This initially started with an anaphylactic reaction to a penicillin derivative in the emergency department. The patient has multiple triggers for atrial fibrillation including her history of hypertension, her COPD, and her ongoing pelvic infection. The patient had tolerated metoprolol succinate 25 mg daily in her home environment without any significant side effects. I would recommend that we discontinue the Lanoxin and put her back on metoprolol succinate 25 mg daily. I expect her heart rate to be in the 30-40 bpm range when she is sleeping as it appears the patient probably has sleep apnea and she tolerated metoprolol in her home environment without any reaction. If possible the patient should be considered for full dose anticoagulation due to her recurrence of these paroxysms of atrial fibrillation. I will defer starting of the full dose anticoagulation to the primary service given her ongoing treatment for her sigmoid diverticulitis. If the patient remains in sinus rhythm on the metoprolol then further oral anticoagulation could be deferred at this time. If we are unable to control her atrial fibrillation with metoprolol a short course of a couple of months of amiodarone may be indicated. (2) Abscess of sigmoid colon due to diverticulitis: PLAN: Patient is currently on IV antibiotics being treated by the ID service and the primary service. (3) Nicotine dependence: QUALIFIERS: Nicotine product type: cigarettes Substance use status: unspecified nicotine-induced disorder Qualified Code(s): F17.219 - Nicotine dependence, cigarettes, with unspecified nicotine-induced disorders PLAN: Patient reports that she has quit smoking as of her hospitalization on this admission. She was encouraged to stick with that decision. PLAN: Plan 1. Discontinue Lanoxin. 2. Will reinstitute home dose of metoprolol succinate 25 mg daily and monitor the patient closely. 3. If remains in sinus rhythm can forego full dose oral anticoagulation if felt to be more appropriate from the primary service standpoint related to her ongoing infectious process. HPI Consult Data Date of Consult: 09/24/24 HPI Narrative Reason for Consultation: Atrial fibs with RVR HPI Narrative: AURELIO MICHELLE, is a 64 F who presents with sigmoid diverticulitis with abscesses. The patient has been treated with IV antibiotic she had an anaphylactic reaction to a penicillin derivative in the emergency department upon initial presentation. With this anaphylaxis she developed paroxysmal atrial fibrillation with a rapid ventricular response which initially responded to metoprolol. The patient reverted into normal sinus rhythm but then last evening developed bradycardia down in the 30 bpm range. Since her admission the patient has had paroxysmal atrial fibrillation with heart rates in the 1 teens to 130 range normal sinus rhythm and what appears to be multifocal atrial tachycardia. Patient does have a longstanding history of smoking and COPD. 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 ECG done this morning at 0105 showed sinus bradycardia and otherwise was unremarkable with no evidence of ischemia. The patient has a history of lung disease, hypertension, and now this infectious process all of which are drivers for atrial fibrillation. The patient had been on metoprolol succinate 25 mg daily in her home environment. She has no reported history of syncope or near syncope. The patient has no prior cardiovascular history to her knowledge. She does have a history of hypertension that had been treated with beta-sheyla therapy in the past. [facility] Medical History Groin cyst COPD (chronic obstructive pulmonary disease) Depression Cervical cancer Skin cancer IBS (irritable bowel syndrome) Hyperlipemia Hypertension Diabetes Carpal tunnel syndrome Cataracts, bilateral Arthritis Glaucoma Anal fissure Home Medications ?Medication ?Instructions ?Recorded ?Last Taken ?Type fluticasone fur. 100 mcg-umeclid 1 ea inhalation QDAY #28 ea 03/05/24 Unknown Rx 62.5 mcg-vilant 25 mcg inhalat.powder (Trelegy Ellipta) bumetanide 1 mg tablet 1 mg PO QDAY #90 tabs 03/28/24 09/20/24 Rx cholecalciferol (vitamin D3) 25 25 mcg PO QDAY #90 caps 03/28/24 09/20/24 Rx mcg (1,000 unit) capsule (Vitamin D3) esomeprazole magnesium 40 mg 40 mg PO QDAY #90 caps 03/28/24 09/20/24 Rx capsule,delayed release metoprolol succinate 25 mg 25 mg PO QDAY #90 tabs 03/28/24 09/20/24 Rx tablet,extended release 24 hr montelukast 10 mg tablet 10 mg PO QDAY #90 tabs 03/28/24 09/20/24 Rx rosuvastatin 10 mg tablet 10 mg PO QHS #90 tabs 03/28/24 Unknown Rx valsartan 80 mg tablet 80 mg PO QDAY #90 tabs 03/28/24 09/20/24 Rx sennosides 8.6 mg-docusate sodium 1 tab-cap PO QHS #30 tabs 06/28/24 Unknown Rx 50 mg tablet semaglutide 1 mg/dose (4 mg/3 mL) 1 mg (0.75 mL) subcut QWEEK #3 mL 07/20/24 09/14/24 Rx subcutaneous pen injector indomethacin 25 mg capsule 25 mg PO BID #60 caps 07/26/24 09/20/24 Rx albuterol sulfate 90 mcg/actuation 2 puff inhalation Q6H PRN 08/16/24 Unknown Rx aerosol inhaler shortness of breath or wheezing #8.5 grams hydrocortisone 2.5 % topical cream 1 applic topical BID PRN arm 09/23/24 Unknown History hydroxyzine HCl 50 mg tablet 50 mg PO BID anxiety 09/23/24 09/20/24 History semaglutide 0.25 mg or 0.5 mg (2 0.5 mg subcut QWEEK diabetes 09/23/24 Unknown History mg/3 mL) subcutaneous pen injector (Ozempic) sennosides 8.6 mg-docusate sodium 1 tab-cap PO QHS constipatin 09/23/24 Unknown History 50 mg tablet (Stimulant Laxative Plus) Allergy/AdvReac Type Severity Reaction Status Date / Time hydrocodone Allergy RASH Verified 09/20/24 14:41 piperacillin (From Zosyn) Allergy Hives Verified 09/20/24 22:20 Sulfa (Sulfonamide Allergy UNSURE Verified 09/20/24 14:41 Antibiotics) tazobactam (From Zosyn) Allergy Hives Verified 09/20/24 22:20 meloxicam AdvReac Severe facial Verified 09/20/24 14:41 swellling naproxen AdvReac Nausea Verified 09/20/24 14:41 tramadol AdvReac Nausea Verified 09/20/24 16:02 trazodone AdvReac PT UNSURE Verified 09/20/24 14:41 OF REACTION Family History Sister Bleeding disorder Diabetes Epilepsy Father Heart disease Hypertension Bowel disease Mother Heart disease Hyperlipemia Surgical History History of rectal surgery H/O: section S/P rotator cuff surgery Social History adopted: No household members: none number of children: 3 current occupational status: retired pets and animals: Yes (2) pets and animals: fish sexually active: No Smoking Status: Current every day smoker tobacco type: cigarettes Tobacco: How many years used: 45 alcohol intake: never substance use type: does not use caffeine: Yes (2) Type: coffee what type of physical activity do you participate in: none do you feel safe at home: Yes ROS Constitutional Constitutional: Reports as per HPI Eyes Eyes: Reports systems reviewed and no addt'l complaints, except as documented ENT HEENT: Reports systems reviewed and no addt'l complaints, except as documented Cardiovascular Cardiovascular: Reports as per HPI Respiratory/Chest Respiratory/Chest: Reports as per HPI Gastrointestinal Gastrointestinal: Reports as per HPI Genitourinary Genitourinary: Reports systems reviewed and no addt'l complaints, except as documented Musculoskeletal Musculoskeletal: Reports systems reviewed and no addt'l complaints, except as documented Integumentary Integumentary: Reports systems reviewed and no addt'l complaints, except as documented Neurologic Neurologic: Reports systems reviewed and no addt'l complaints, except as documented Psychiatric Psychiatric: Reports systems reviewed and no addt'l complaints, except as documented Endocrine Endocrinology: Reports systems reviewed and no addt'l complaints, except as documented Hematologic/Lymphatic Hematologic/Lymphatic: Reports systems reviewed and no addt'l complaints, except as documented Allergic/Immunologic Allergic/Immunologic: Reports as per HPI Physical Exam Const alert and oriented x3 Constitutional Narrative: Resting comfortably in recumbent position in bed HEENT head/scalp atraumatic Eyes EOMs intact bilaterally Neck no JVD Carotids: Negative for bruit Chest inspection of chest normal Resp normal respiratory effort Auscultation: diminished lung sounds diffuse Cardio Cardio Narrative: Distant heart tones due to pulmonary status. Rate: regular rate Rhythm: regular rhythm Heart Sounds: S1 normal and S2 normal; Negative for click, gallop or murmur Bruits: Negative for carotid bruit Extremity no pedal edema Neuro Neuro Narrative: Alert and oriented x 3 Psych mental status grossly normal Risk Stratification Risk Stratification Applicable: No Objective Data Vital Signs: Vital Signs Temp Pulse Resp BP Pulse Ox O2 Del Method O2 Flow Rate 99.4 F H 76 16 127/77 H 96 Nasal Cannula 3 09/24/24 05:47 09/24/24 06:55 09/24/24 06:55 09/24/24 05:47 09/24/24 06:55 09/24/24 06:55 09/24/24 06:55 Oxygen Flow Rate (L/min) 3 Oxygen Delivery Method Nasal Cannula Weight: 208 lb 8.917 oz Body Mass Index (BMI) 35.6 Intake & Output: Intake and Output for Last 24 Hours 09/22/24 09/23/24 09/24/24 23:59 23:59 23:59 Intake Total 700 / 950 1650 / 1650 200 / 200 Balance 700 / 950 1650 / 1650 200 / 200 Lab / Micro Data Attestation: I reviewed the patient's lab results. 09/24/24 06:19 09/24/24 06:19 Labs: Laboratory Results - last 24 hr 09/24/24 06:19: WBC 11.2 H, RBC 3.84 L, Hgb 11.0 L, Hct 32.6 L, MCV 84.9, MCH 28.6, MCHC 33.7, RDW Std Deviation 44.9 H, RDW Coeff of Jose Luis 14.6, Plt Count 257, MPV 10.3, Immature Gran % (Auto) 1.300 H, Neut % (Auto) 71.4 H, Lymph % (Auto) 15.8 L, [place] % (Auto) 9.6, Eos % (Auto) 1.4, Baso % (Auto) 0.5, Absolute Neuts (auto) 8.0 H, Absolute Lymphs (auto) 1.77, Nucleated RBC % 0, Sodium 139, Potassium 3.4, Chloride 103, Carbon Dioxide 25.0, Anion Gap 11, BUN 5, Creatinine 0.68 L, Estim Creat Clear Calc 77.16, Est GFR (MDRD) Non-Af 96, BUN/Creatinine Ratio 8.1 L, Glucose 111 H, Calcium 8.8 Rhythm Strip Rhythm Strip: Sinus Rhythm Rate: 76 Ectopy: - (Short runs of atrial fibrillation and/or multifocal atrial tachycardia documented.) Cardiology Labs/Tests 09/24/24 06:19: WBC 11.2 H, RBC 3.84 L, Hgb 11.0 L, Hct 32.6 L, MCV 84.9, MCH 28.6, MCHC 33.7, Plt Count 257, MPV 10.3, Immature Gran % (Auto) 1.300 H, Neut % (Auto) 71.4 H, Lymph % (Auto) 15.8 L, [place] % (Auto) 9.6, Eos % (Auto) 1.4, Baso % (Auto) 0.5, Absolute Neuts (auto) 8.0 H, Nucleated RBC % 0, Sodium 139, Potassium 3.4, Chloride 103, Carbon Dioxide 25.0, Anion Gap 11, BUN 5, Creatinine 0.68 L, Est GFR (MDRD) Non-Af 96, BUN/Creatinine Ratio 8.1 L, Glucose 111 H, Calcium 8.8 Rhythm: EKG: ECHO: Stress Test: Cardiac Cath: PCI: CT Surgery: Holter monitor: EPS: PPM: CXR: Chest CT Scan:
--- NOTE | 2024-09-24 09:44 | PCM.PN.SRG ---
Subjective Subjective Patient tolerating transitional diet, having bowel function denies any abdominal pain. Objective Data Objective Data Vital Signs: Vital Signs Temp Pulse Resp BP Pulse Ox O2 Del Method O2 Flow Rate 99.4 F H 76 16 127/77 H 96 Nasal Cannula 3 09/24/24 05:47 09/24/24 06:55 09/24/24 06:55 09/24/24 05:47 09/24/24 06:55 09/24/24 06:55 09/24/24 06:55 Oxygen Flow Rate (L/min) 3 Oxygen Delivery Method Nasal Cannula Weight: 208 lb 8.917 oz Body Mass Index (BMI) 35.6 Intake & Output: Intake and Output for Last 24 Hours 09/22/24 09/23/24 09/24/24 23:59 23:59 23:59 Intake Total 700 / 950 1650 / 1650 200 / 200 Balance 700 / 950 1650 / 1650 200 / 200 Lab / Micro Data 09/24/24 06:19 09/24/24 06:19 Labs: Laboratory Results - last 24 hr 09/24/24 06:19: WBC 11.2 H, RBC 3.84 L, Hgb 11.0 L, Hct 32.6 L, MCV 84.9, MCH 28.6, MCHC 33.7, RDW Std Deviation 44.9 H, RDW Coeff of Jose Luis 14.6, Plt Count 257, MPV 10.3, Immature Gran % (Auto) 1.300 H, Neut % (Auto) 71.4 H, Lymph % (Auto) 15.8 L, [place] % (Auto) 9.6, Eos % (Auto) 1.4, Baso % (Auto) 0.5, Absolute Neuts (auto) 8.0 H, Absolute Lymphs (auto) 1.77, Nucleated RBC % 0, Sodium 139, Potassium 3.4, Chloride 103, Carbon Dioxide 25.0, Anion Gap 11, BUN 5, Creatinine 0.68 L, Estim Creat Clear Calc 77.16, Est GFR (MDRD) Non-Af 96, BUN/Creatinine Ratio 8.1 L, Glucose 111 H, Calcium 8.8 Rhythm Strip Rhythm Strip: Sinus Rhythm Rate: 76 Ectopy: - (Short runs of atrial fibrillation and/or multifocal atrial tachycardia documented.) Physical Exam Const oriented x3 and no apparent distress Resp normal respiratory effort GI soft to palpation and non-tender Inspection: Negative for abdominal distention Assessment & Plan Assessment/Plan (1) Abscess of sigmoid colon due to diverticulitis: PLAN: Patient is 64-year-old female admitted with complicated diverticulitis, first episode. Patient appears to be clinically improved now hospital day #4. Continue transitional diet, okay to DC per surgery once medically cleared. Continue IV Cipro Flagyl and DC antibiotics per ID. Will patient follow-up with Dr. Peña in 1 to 2 weeks to discuss follow-up colonoscopy Patience Mccarty M.D. Pager: [phone] [facility] [address] [place] [address], [facility], [address] [place] [id number] Office: [phone] Charges/Coding Visit Charges Inpatient E&M: 89153 Subs Hosp L2
[2024-09-24] MEDS: busPIRone 5 MG Tablet 10 MG PO ×2 (11:02→22:20)
[2024-09-24] MEDS: Enoxaparin 40 MG/0.4 ML Syringe SC (11:04)
[2024-09-24] MEDS: Pantoprazole Sodium 40 MG in 0.9% Normal Saline (100mL MB+) 100 ML 330 MG IV (11:05)
[2024-09-24] MEDS: hydrOXYzine PAM 25 MG Capsule PO ×2 (11:12→22:30)
[2024-09-24] MEDS: Senna Tablet 1 TABLET PO (11:13)
[2024-09-24] MEDS: Metoprolol(XL)Succ 25 MG Tablet PO (11:29)
[2024-09-24] MEDS: Lactobacillis Acidophilus 1 CAP PO ×2 (13:27→22:20)
--- NOTE | 2024-09-24 14:19 | PN.HOSP_ITS ---
Reason for Visit Reason for Visit: Diagnoses Elevated white blood cell count, unspecified (09/20/24) Obesity, class 1 (09/20/24) Nicotine dependence, cigarettes, with unspecified nicotine-induced disorders (09/20/24) Paroxysmal atrial fibrillation (09/20/24) Diverticulitis of large intestine with perforation and abscess without bleeding (09/20/24) Anaphylactic reaction due to adverse effect of correct drug or medicament properly administered, initial encounter (09/20/24) Other specified postprocedural states (09/20/24) Objective Data Objective Data Vital Signs: Vital Signs Temp Pulse Resp BP Pulse Ox O2 Del Method O2 Flow Rate 98.1 F 82 18 109/53 L 94 Nasal Cannula 2 09/24/24 10:57 09/24/24 13:13 09/24/24 13:13 09/24/24 10:57 09/24/24 10:57 09/24/24 10:57 09/24/24 10:57 Oxygen Flow Rate (L/min) 2 Oxygen Delivery Method Nasal Cannula Weight: 208 lb 8.917 oz Body Mass Index (BMI) 35.6 Intake & Output: Intake and Output for Last 24 Hours 09/22/24 09/23/24 09/24/24 23:59 23:59 23:59 Intake Total 700 / 950 1650 / 1650 400 / 400 Balance 700 / 950 1650 / 1650 400 / 400 Lab / Micro Data 09/24/24 06:19 09/24/24 06:19 Labs: Laboratory Results - last 24 hr 09/24/24 06:19: WBC 11.2 H, RBC 3.84 L, Hgb 11.0 L, Hct 32.6 L, MCV 84.9, MCH 28.6, MCHC 33.7, RDW Std Deviation 44.9 H, RDW Coeff of Jose Luis 14.6, Plt Count 257, MPV 10.3, Immature Gran % (Auto) 1.300 H, Neut % (Auto) 71.4 H, Lymph % (Auto) 15.8 L, [place] % (Auto) 9.6, Eos % (Auto) 1.4, Baso % (Auto) 0.5, Absolute Neuts (auto) 8.0 H, Absolute Lymphs (auto) 1.77, Nucleated RBC % 0 Sodium 139, Potassium 3.4, Chloride 103, Carbon Dioxide 25.0, Anion Gap 11, BUN 5, Creatinine 0.68 L, Estim Creat Clear Calc 77.16, Est GFR (MDRD) Non-Af 96, B UN/Creatinine Ratio 8.1 L, Glucose 111 H, Calcium 8.8 Rhythm Strip Rhythm Strip: Sinus Rhythm Rate: 76 Ectopy: - (Short runs of atrial fibrillation and/or multifocal atrial tachycardia documented.) Physical Exam Narrative Seen and examined. Overnight events noted. Patient had bradycardia episode last night. Unclear why Lanoxin was given. Heart rate was in 40s. Rock Crusher Operator saw the patient. Left lower quadrant abdominal pain is better. Had BM. She was admitted with abdominal pain mainly on LLQ but also on RLQ for last few days along with cold, shivering/chills and fever. Denies prior history of diverticulitis. Blood pressure is better 145/77, 151/84 History of COPD and wheezing Physical exam General: Alert, Oriented x3, Cooperative HEENT: Atraumatic, PERRLA, EOMI, Normocephalic. Oral: No Gingival or Mucosal Lesions/ Ulcerations Neck: Supple, No JVD, Negative Carotid Bruits Chest wall/Lungs: Air entry diminished in bilateral lung bases. Mild expiratory rhonchi Cardiovascular: A-fib, heart rate normal rate no M/G/R Abdomen: Bowel Sounds Present, Soft, mild tenderness in LLQ on deep palpation better than yesterday Non-Distended : No dysuria. No renal angle tenderness. No suprapubic tenderness. Extremities: No edema, Capillary Refill Less than 3 Seconds Skin: No rashes, No breakdown Musculoskeletal: No Tenderness to Palpation of Joints or Extremities Neurological: Cranial nerves II-XII grossly intact, DTR 2+/4. No acute focal neurological deficit. Psych/Mental Status: Severe anxiety Assessment & Plan Assessment/Plan (1) Abscess of sigmoid colon due to diverticulitis: (2) Abscess of pelvis: (3) Leukocytosis: QUALIFIERS: Leukocytosis type: unspecified Qualified Code(s): D 72.829 - Elevated white blood cell count, unspecified (4) Anaphylactic reaction due to adverse effect of correct drug or medicament properly administered, initial encounter: (5) History of rectal surgery: (6) Obesity (BMI 30.0-34.9): PLAN: Plan 64-year-old female admitted with lower abdominal pain that started Thursday, constipation. Bilateral lower quadrant abdominal pain left worse than right after having diarrhea on September 17. Passing flatus. She stated her pain gets better with walking and exertion but feels more when she is laying down and resting. 1. Abdominal pain due to sigmoid colon diverticulitis complicated with sigmoid colonic and pelvic abscesses: Patient blood pressure never been below systolic 90 mmHg, her baseline about 110- 120 mmHg. Does not have clear-cut signs of endorgan hypoperfusion therefore sepsis ruled out CT scan of the abdomen and pelvis with IV contrast that revealed sigmoid colon diverticulitis with associated sigmoid colon wall abscess and additional abscess within the pelvis abutting the undersurface of the uterus - Admit to ICU due to multiple abscesses complicated by recent anaphylactic reaction. Plan: Admitted in ICU as per sepsis protocol. Initially patient was given 2 L IV bolus, given IV Zosyn and developed anaphylactic reaction, therefore stopped. She received clindamycin and metronidazole. Surgeon was consulted and seen. Patient had 2 doses of IV clindamycin therefore 2 more doses. Continue IV Flagyl and Levaquin added. ID consult for further recommendation. 09/22: ID consult reviewed and appreciated. IV antibiotic changed to cefepime and Flagyl, would have low risk of prostate DVT with Zosyn. Patient is scheduled for CT abdomen with oral contrast to see any change from the previous CT scan. 09/23: WBC count improving. Follow-up CT scan on 09/22 shows interval improvement in abscesses on the antimesenteric side of colon with residual inflammatory changes in sigmoid colon. ID recommended to continue cefepime and Flagyl and plan on 10 days of total antibiotic with discharge antibiotic of Cipro 500 mg twice daily and Flagyl 5 mL 3 times daily, stop date 10/01/2024. 09/24: Discussed with the surgeon. Abdominal pain has improved. Diverticulitis is controlled. 2. Leukocytosis of 22.9K due to sigmoid diverticulitis and complicated abscesses: Leukocytosis improving. A-fib RVR: Twelve-lead EKG ordered. No previous history of A-fib documented in the chart. Cardizem 50 mg IV bolus ordered for conversant. 2D echo is ordered. 09/23: Follow-up EKG on 09/22 shows normal sinus rhythm at 75 beats per. Metoprolol increased to 25 mg 3 times daily. 2D echo shows EF 65%. Trivial MR. 09/24: She had A-fib with bradycardia last night and optical designer was consulted. Advised to continue metoprolol succinate 25 mg daily. Lanoxin was discontinued. 3. Suspected Anaphylactic Reaction to piperacillin-tazobactam in ER: Piperacillin-tazobactam added to patient's list of allergies. Patient had facial swelling generalized erythematous maculopapular rash and itching and was treated with epinephrine, diphenhydramine and IV Pepcid. Zosyn was stopped. 4. History of rectal surgery; due to rectal wall muscle weakness done at outside facility by Dr. Grissom (2022) compounding #1 - #3 - Noted. 5. Obesity; with BMI of 32.8 this admission on semaglutide adding to the burden of disease outlined from #1 - #4 - Weight loss will be recommended. Check TSH. This complicates her case and may hamper recovery. 6. Essential hypertension; on metoprolol, valsartan and bumetanide - Hold oral regimen in favor IV hydralazine IV prn for systolic blood pressure > 160 mmHg. 7. Hyperlipidemia; on rosuvastatin - Hold statin until patient cleared for oral intake. 8. DM-2; currently untreated -A1c 6.6% 9. COPD with history of tobacco use disorder/nicotine dependence: Currently patient not short of breath but has history of intermittent wheezing. Not in exacerbation 10. Severe anxiety and depression; currently not on treatment 09/23: Patient on high-dose of hydroxyzine 50 mg twice daily, decreased to 25 mg twice daily. BuSpar 10 mg twice daily ordered. 11. Chronic primary degenerative arthritis of knee: Give acetaminophen prn 18. DVT/GI prophylaxis -Lovenox and SCD. Pantoprazole 40 mg IV daily. Laboratory Results 09/23/24 07:07: WBC 11.7 H, RBC 4.01 L, Hgb 11.3 L, Hct 34.3 L, MCV 85.5, MCH 28.2, MCHC 32.9, RDW Std Deviation 45.1 H, RDW Coeff of Jose Luis 14.6, Plt Count 238, MPV 9.9, Immature Gran % (Auto) 0.900, Neut % (Auto) 73.7 H, Lymph % (Auto) 13.9 L, [place] % (Auto) 9.0, Eos % (Auto) 2.0, Baso % (Auto) 0.5, Absolute Neuts (auto) 8.6 H, Absolute Lymphs (auto) 1.62, Nucleated RBC % 0, Sodium 135, Potassium 3.5, Chloride 99, Carbon Dioxide 24.3, Anion Gap 12, BUN 5, Creatinine 0.73, Estim Creat Clear Calc 76.24, Est GFR (MDRD) Non-Af 90, BUN/Creatinine Ratio 6.7 L, Glucose 110 H, Calcium 9.2 Clinical Impression(s) from Imaging Studies Abdomen/Pelvis CT 09/20/24 17:15 IMPRESSION: Sigmoid colon diverticulitis. Associated sigmoid colon wall abscess. Additional abscess within the pelvis abutting the undersurface of the uterus. Abdomen/Pelvis CT 09/22/24 07:37 IMPRESSION: Residual inflammatory changes seen in the sigmoid colon as described with interval improvement in the previously seen fluid collection in the anti mesenteric side of the sigmoid colon. Reading Location: [facility] Echocardiogram 09/22/24 09:14 Interpretation Summary The estimated ejection fraction is 65 %. Unable to assess diastolic dysfunction. Trivial mitral valve insufficiency. Charges/Coding Visit Charges Inpatient E&M: 20466 Subs Hosp L2
[2024-09-24] MEDS: HYDROmorphone 0.5 MG/0.5 ML SYRINGE IV (22:14)
[2024-09-25] VITALS (12 sets, daily range): BP systolic 118–140; BP diastolic 56–75; PULSE 72–124; RESP 18–20; TEMP 36.3–37; O2SAT 93–96; BMI 34.7
[2024-09-25] MEDS: Cefepime HCl 2 GM in 0.9% Normal Saline (100mL MB+) 100 ML IV ×3 (05:15→21:12)
[2024-09-25 05:21] LABS: Absolute Neutrophil Count 7.9 X10^3/uL (2.0-7.7); Basophil# 0.08 X10^3/uL; Basophil% 0.7 % (0-1); Eosinophils% 2.6 % (0-5); Hematocrit 29.5 % (37-47); Hemoglobin 9.7 g/dL (12.0-15.0); Lymphocyte % 17.9 % (19-41); Mean Corp Hgb Conc 32.9 g/dL (32-36); Mean Corpuscular Volume 85.3 fL (81-99); Mean Platelet Vol. 10.2 fl (6.2-12.0); Monocyte# 1.08 X10^3/uL; Monocyte% 9.2 % (0-10); NRBC Flagged by Analyzer 0 % (0-5); Neutrophil # 7.93 X10^3/uL (2.7-7.7); Neutrophil % 67.8 % (47-70); Platelet Count 265 K/mm3 (150-450); RBC Distribution Width CV 14.8 % (11.6-14.6); RBC Distribution Width SD 45.5 fl (35.1-43.9); Red Blood Count 3.46 M/mm3 (4.2-5.4); White Blood Count 11.7 K/mm3 (4.4-11.0)
[2024-09-25] MEDS: metroNIDAZOLE 500 MG/100 ML BAG 100 MG IV ×3 (06:02→22:05)
[2024-09-25 06:03] LABS: Anion Gap 10 (5-15); BUN 7 mg/dL (4-19); BUN/Creat Ratio 12.4 RATIO (10-20); Calcium,Total 8.9 mg/dL (7.6-11.0); Carbon Dioxide 25.6 mmol/L (21.0-32.0); Chloride 103 mmol/L (98-108); Creatinine, Serum 0.59 mg/dL (0.70-1.20); EST Glomerular Filtration Rate 99 (>60); Glucose 105 mg/dL (70-99); Potassium 3.2 mmol/L (3.3-5.1); Sodium Level 139 mmol/L (133-145)
[2024-09-25] MEDS: Lactobacillis Acidophilus 1 CAP PO ×3 (06:03→21:14)
[2024-09-25] MEDS: Ipratropium/Albuterol Sulfate 3 ML AMPUL.NEB INHALATION ×3 (07:13→20:19)
[2024-09-25] MEDS: Budesonide Respules 0.5 MG/2 ML AMPUL.NEB. INHALATION ×2 (07:13→20:19)
[2024-09-25] MEDS: Enoxaparin 40 MG/0.4 ML Syringe SC (07:34)
[2024-09-25] MEDS: busPIRone 5 MG Tablet 10 MG PO ×2 (07:35→21:14)
[2024-09-25] MEDS: Metoprolol(XL)Succ 25 MG Tablet PO ×2 (07:35→21:15)
[2024-09-25] MEDS: Senna Tablet 1 TABLET PO (07:35)
[2024-09-25] MEDS: Potassium Chloride Oral Tablet 20 MEQ 40 MEQ PO ×2 (08:04→10:31)
[2024-09-25] MEDS: hydrOXYzine PAM 25 MG Capsule PO ×2 (08:04→21:20)
--- NOTE | 2024-09-25 09:43 | CT_ITS ---
PROCEDURE: ABDOMEN/PELVIS WITH CONTRAST 09/25/2024 REASON FOR EXAM: DIVERTICULITIS, LLQ PAIN TECHNIQUE: ABDOMEN/PELVIS WITH CONTRAST. Coronal and Sagittal reconstruction series were provided. CONTRAST: Isovue 370 VOLUME: 100 mL One or more dose reduction techniques were used (e.g., Automated exposure control, adjustment of the mA and/or kV according to patient size, use of iterative reconstruction technique. RADIATION DOSE SUMMARY: DLP: 1500 mGycm COMPARISON: CT abdomen pelvis 09/22/2024. FINDINGS: Lung bases: Moderate right and small left pleural effusions with adjacent atelectasis. The heart is normal in size. Liver: The liver is normal in size with diffuse hepatic steatosis. The major portal veins are patent. No biliary ductal dilation. Gallbladder: Development of gallbladder wall thickening, pericholecystic fluid and fat stranding, and pericholecystic liver inflammation. Spleen: Normal in size. Pancreas: Unremarkable. Adrenals: Mild left adrenal gland hyperplasia. No adrenal mass. Kidneys: Left midpole renal cysts and additional hypodensities, too small to characterize. No hydronephrosis or nephrolithiasis. Bladder: Decompressed. Reproductive Organs: Slight increased size and rim enhancement of the intrapelvic abscess, now measuring 6.1 x 1.9 cm (series 2, image 95), previously 5.4 x 1.7 cm when measured in a similar fashion. The intrapelvic abscess abuts the anterior superior uterus, with persistent uterine wall stranding and hyperdensity. Bowel: The bowel loops are nondilated. Retained oral contrast material within the small bowel. No intra-abdominal ascites. Unchanged small rim enhancing abscess along the sigmoid colon, measuring 3.5 x 1.4 cm (coronal image 82), previously measuring 3.3 x 1.3 cm when measured in a similar fashion. Unchanged sigmoid diverticulitis. No obvious perforation. Lymph nodes: Prominent mesenteric and retroperitoneal nodes, likely reactive. Vasculature: Moderate mixed plaque of the aortoiliac vessels. Bones: Mild thoracolumbar spondylosis. CT/Abdomen/Pelvis WITH Contrast IMPRESSION: 1. Slight increased size and rim enhancement of the intrapelvic abscess. Abutm ent of the intrapelvic abscess along the uterus without obvious fistulous connection, however visualization is limited. If cli nically indicated, fluoroscopic imaging could be obtained for further evaluation. 2. Stable/slight increased size inform enhancement of the intrapelvic abscess a long the sigmoid colon. Surgical consultation recommended. 3. Development of gallbladder wall thickening, pericholecystic fluid and strand ing and adjacent liver parenchyma inflammation. Findings are nonspecific and may reflect acalculous cholecystitis. Correlation with patient's symptoms and physical examination recommended. 4. Development of moderate right and small left pleural effusions. 5. Diffuse hepatic steatosis. Reading Location: [id number]
--- NOTE | 2024-09-25 09:46 | PCM.PN.SRG ---
Subjective Subjective Patient complains of new left lower quadrant pain overnight. Objective Data Objective Data Vital Signs: Vital Signs Temp Pulse Resp BP Pulse Ox O2 Del Method O2 Flow Rate 98.6 F 124 H 18 135/75 H 93 Nasal Cannula 3 09/25/24 07:31 09/25/24 07:35 09/25/24 07:31 09/25/24 07:35 09/25/24 07:31 09/25/24 07:31 09/25/24 07:31 Oxygen Flow Rate (L/min) 3 Oxygen Delivery Method Nasal Cannula Weight: 203 lb 11.314 oz Body Mass Index (BMI) 34.7 Intake & Output: Intake and Output for Last 24 Hours 09/23/24 09/24/24 09/25/24 23:59 23:59 23:59 Intake Total 1650 / 1650 1180 / 1180 200 / 200 Balance 1650 / 1650 1180 / 1180 200 / 200 Lab / Micro Data 09/25/24 04:47 09/25/24 04:47 Labs: Laboratory Results - last 24 hr 09/25/24 04:47: WBC 11.7 H, RBC 3.46 L, Hgb 9.7 L, Hct 29.5 L, MCV 85.3, MCH 28.0, MCHC 32.9, RDW Std Deviation 45.5 H, RDW Coeff of Jose Luis 14.8 H, Plt Count 265, MPV 10.2, Immature Gran % (Auto) 1.800 H, Neut % (Auto) 67.8, Lymph % (Auto) 17.9 L, [place] % (Auto) 9.2, Eos % (Auto) 2.6, Baso % (Auto) 0.7, Absolute Neuts (auto) 7.9 H, Absolute Lymphs (auto) 2.10, Nucleated RBC % 0, Sodium 139, Potassium 3.2 L, Chloride 103, Carbon Dioxide 25.6, Anion Gap 10, BUN 7, Creatinine 0.59 L, Estim Creat Clear Calc 76.20, Est GFR (MDRD) Non-Af 99, BUN/Creatinine Ratio 12.4, Glucose 105 H, Calcium 8.9 Rhythm Strip Rhythm Strip: Sinus Rhythm Rate: 76 Ectopy: - (Short runs of atrial fibrillation and/or multifocal atrial tachycardia documented.) Physical Exam Const oriented x3 and no apparent distress Resp normal respiratory effort GI soft to palpation GI Narrative: Tender palpation left lower quadrant, no guarding or peritoneal signs Assessment & Plan Assessment/Plan (1) Abscess of sigmoid colon due to diverticulitis: PLAN: Patient is 64-year-old female admitted with complicated diverticulitis, first episode. Patient appears to be clinically improved now hospital day #5. back to clears, get CT a/p due to LLQ pain--will let Dr. Salvador and Dr. Zelaya if eliquis will be ok to start depending on CT Continue IV Cipro Flagyl and DC antibiotics per ID. Addendum: Patient did have a bowel movement prior to CAT scan with improvement of left lower quadrant pain per nursing. CT called with slight increased size and right of enhancement of the intrapelvic abscess near the uterus but stable slight increase one near colon. Read also was states there is Pericholecystic fluid. Upon my read on comparing the 2 previous CAT scan?patient's gallbladder is decompressed today when previously was distended on 09/22?patient currently does not complain of any right upper quadrant pain. Patience Mccarty M.D. Pager: [phone] [facility] [address] [place] [address], [facility], [address] [place] [address] Office: [phone] Charges/Coding Visit Charges Inpatient E&M: 86920 [facility] Hosp L3
[2024-09-25] MEDS: Pantoprazole Sodium 40 MG in 0.9% Normal Saline (100mL MB+) 100 ML 330 MG IV (10:28)
--- NOTE | 2024-09-25 10:48 | PN.CARD_ITS ---
Subjective Subjective Patient reports some increasing abdominal discomfort. The surgical team was evaluating the patient this morning. Telemetry shows normal sinus rhythm at 75 bpm. However during the evening hours she has had multiple short runs of paroxysmal atrial fibrillation and/or supraventricular tachycardia. These runs started around 8 PM last evening and again at 8 AM this morning. A repeat CT scan has been ordered for this morning by the surgical team. Objective Data Vital Signs: Vital Signs Temp Pulse Resp BP Pulse Ox O2 Del Method O2 Flow Rate 98.6 F 124 H 18 135/75 H 93 Nasal Cannula 3 09/25/24 07:31 09/25/24 07:35 09/25/24 07:31 09/25/24 07:35 09/25/24 07:31 09/25/24 07:31 09/25/24 07:31 Oxygen Flow Rate (L/min) 3 Oxygen Delivery Method Nasal Cannula Weight: 203 lb 11.314 oz Body Mass Index (BMI) 34.7 Intake & Output: Intake and Output for Last 24 Hours 09/23/24 09/24/24 09/25/24 23:59 23:59 23:59 Intake Total 1650 / 1650 1180 / 1180 300 / 300 Balance 1650 / 1650 1180 / 1180 300 / 300 Lab / Micro Data Attestation: I reviewed the patient's lab results. 09/25/24 04:47 09/25/24 04:47 Labs: Laboratory Results - last 24 hr 09/25/24 04:47: WBC 11.7 H, RBC 3.46 L, Hgb 9.7 L, Hct 29.5 L, MCV 85.3, MCH 28.0, MCHC 32.9, RDW Std Deviation 45.5 H, RDW Coeff of Jose Luis 14.8 H, Plt Count 265, MPV 10.2, Immature Gran % (Auto) 1.800 H, Neut % (Auto) 67.8, Lymph % (Auto) 17.9 L, [place] % (Auto) 9.2, Eos % (Auto) 2.6, Baso % (Auto) 0.7, Absolute Neuts (auto) 7.9 H, Absolute Lymphs (auto) 2.10, Nucleated RBC % 0, Sodium 139, Potassium 3.2 L, Chloride 103, Carbon Dioxide 25.6, Anion Gap 10, BUN 7, C reatinine 0.59 L, Estim Creat Clear Calc 76.20, Est GFR (MDRD) Non-Af 99, BUN/Creatinine Ratio 12.4, Glucose 105 H, Calcium 8.9 Rhythm Strip Rhythm Strip: Sinus Rhythm Rate: 75 Ectopy: - (Short runs of atrial fibrillation and SVT) Cardiology Labs/Tests 09/25/24 04:47: WBC 11.7 H, RBC 3.46 L, Hgb 9.7 L, Hct 29.5 L, MCV 85.3, MCH 28.0, MCHC 32.9, Plt Count 265, MPV 10.2, Immature Gran % (Auto) 1.800 H, Neut % (Auto) 67.8, Lymph % (Auto) 17.9 L, [place] % (Auto) 9.2, Eos % (Auto) 2.6, Baso % (Auto) 0.7, Absolute Neuts (auto) 7.9 H, Nucleated RBC % 0, Sodium 139, P otassium 3.2 L, Chloride 103, Carbon Dioxide 25.6, Anion Gap 10, BUN 7, C reatinine 0.59 L, Est GFR (MDRD) Non-Af 99, BUN/Creatinine Ratio 12.4, Glucose 105 H, Calcium 8.9 Rhythm: EKG: ECHO: Stress Test: Cardiac Cath: PCI: CT Surgery: Holter monitor: EPS: PPM: CXR: Chest CT Scan: Physical Exam Const alert and oriented x3 HEENT normocephalic Chest inspection of chest normal Resp normal respiratory effort Auscultation: crackles right base Cardio Rate: regular rate Rhythm: regular rhythm Heart Sounds: S1 normal and S2 normal; Negative for click, gallop or murmur Extremity no pedal edema Neuro Neuro Narrative: Alert and oriented x 3 Psych mental status grossly normal Assessment & Plan Assessment/Plan (1) A-fib: QUALIFIERS: Atrial fibrillation type: paroxysmal Qualified Code(s): I48.0 - Paroxysmal atrial fibrillation PLAN: Patient continues to have short bouts of atrial fibrillation. They last less than an hour at a time. It does not appear that she is aware of the symptoms. Would recommend increasing her metoprolol succinate to 25 mg twice daily. Her in sinus rhythm has been in the 70-80 bpm range. Ideally the patient should be on oral anticoagulation therapy however given her labile sigmoid diverticulitis and abscess situation we will defer starting oral anticoagulation until this is been stabilized. The patient is having a CT scan to reevaluate her increasing abdominal discomfort today. Should the patient require surgical intervention I would recommend the addition of amiodarone IV to try and control her atrial fibrillation and decrease the risk of any type of embolic event. If amiodarone is added the metoprolol should be discontinued. (2) Abscess of sigmoid colon due to diverticulitis: PLAN: Further evaluation with CT scanning is underway. The surgical team is managing. PLAN: Plan 1. Will increase metoprolol succinate to 25 mg twice daily. 2. Should the patient require surgical intervention would recommend switching from metoprolol to amiodarone IV for better control of her paroxysmal atrial fibs. 3. The patient does not require surgical intervention then Eliquis or appropriate oral anticoagulation should be instituted. 4. Dr. Navarro will be covering starting tomorrow morning. If further assistance is needed please call him. Charges/Coding Visit Charges Inpatient E&M: 70045 Subs Hosp L2
[2024-09-25] MEDS: 0.9% Saline Lock 10 ML Syringe IV ×2 (14:36→21:12)
--- NOTE | 2024-09-25 15:06 | PCM.PN.HOSP ---
Reason for Visit Reason for Visit: Diagnoses Elevated white blood cell count, unspecified (09/20/24) Obesity, class 1 (09/20/24) Nicotine dependence, cigarettes, with unspecified nicotine-induced disorders (09/20/24) Paroxysmal atrial fibrillation (09/20/24) Diverticulitis of large intestine with perforation and abscess without bleeding (09/20/24) Anaphylactic reaction due to adverse effect of correct drug or medicament properly administered, initial encounter (09/20/24) Other specified postprocedural states (09/20/24) Objective Data Objective Data Vital Signs: Vital Signs Temp Pulse Resp BP Pulse Ox O2 Del Method O2 Flow Rate 97.9 F 72 20 H 127/56 H 94 Nasal Cannula 2 09/25/24 14:30 09/25/24 14:30 09/25/24 14:30 09/25/24 14:30 09/25/24 14:33 09/25/24 14:33 09/25/24 14:33 Oxygen Flow Rate (L/min) 2 Oxygen Delivery Method Nasal Cannula Weight: 203 lb 11.314 oz Body Mass Index (BMI) 34.7 Intake & Output: Intake and Output for Last 24 Hours 09/23/24 09/24/24 09/25/24 23:59 23:59 23:59 Intake Total 1650 / 1650 1180 / 1180 400 / 400 Balance 1650 / 1650 1180 / 1180 400 / 400 Lab / Micro Data 09/25/24 04:47 09/25/24 04:47 Labs: Laboratory Results - last 24 hr 09/25/24 04:47: WBC 11.7 H, RBC 3.46 L, Hgb 9.7 L, Hct 29.5 L, MCV 85.3, MCH 28.0, MCHC 32.9, RDW Std Deviation 45.5 H, RDW Coeff of Jose Luis 14.8 H, Plt Count 265, MPV 10.2, Immature Gran % (Auto) 1.800 H, Neut % (Auto) 67.8, Lymph % (Auto) 17.9 L, [place] % (Auto) 9.2, Eos % (Auto) 2.6, Baso % (Auto) 0.7, Absolute Neuts (auto) 7.9 H, Absolute Lymphs (auto) 2.10, Nucleated RBC % 0, Sodium 139, Potassium 3.2 L, Chloride 103, Carbon Dioxide 25.6, Anion Gap 10, BUN 7, Creatinine 0.59 L, Estim Creat Clear Calc 76.20, Est GFR (MDRD) Non-Af 99, BUN/Creatinine Ratio 12.4, Glucose 105 H, Calcium 8.9 Radiography Diagnostic Testing: Radiology Impression Abdomen/Pelvis CT 09/25/24 09:43 IMPRESSION: 1. Slight increased size and rim enhancement of the intrapelvic abscess. Abutment of the intrapelvic abscess along the uterus without obvious fistulous connection, however visualization is limited. If clinically indicated, fluoroscopic imaging could be obtained for further evaluation. 2. Stable/slight increased size inform enhancement of the intrapelvic abscess along the sigmoid colon. Surgical consultation recommended. 3. Development of gallbladder wall thickening, pericholecystic fluid and stranding and adjacent liver parenchyma inflammation. Findings are nonspecific and may reflect acalculous cholecystitis. Correlation with patient's symptoms and physical examination recommended. 4. Development of moderate right and small left pleural effusions. 5. Diffuse hepatic steatosis. Reading Location: [id number] Rhythm Strip Rhythm Strip: Sinus Rhythm Rate: 75 Ectopy: - (Short runs of atrial fibrillation and SVT) Physical Exam Narrative Seen and examined. Overnight events noted. Patient complained of abdominal discomfort mainly left lower quadrant pain. Evaluated by surgeon and CT abdomen was done. Telemetry shows NSR at 75 bpm. Multiple short runs of paroxysmal A-fib/supraventricular tachycardia yesterday evening.. She was admitted with abdominal pain mainly on LLQ but also on RLQ for last few days along with cold, shivering/chills and fever. Denies prior history of diverticulitis. Blood pressure 127/56. History of COPD and wheezing Physical exam General: Alert, Oriented x3, Cooperative HEENT: Atraumatic, PERRLA, EOMI, Normocephalic. Oral: No Gingival or Mucosal Lesions/ Ulcerations Neck: Supple, No JVD, Negative Carotid Bruits Chest wall/Lungs: Air entry diminished in bilateral lung bases. Mild expiratory rhonchi Cardiovascular: Sinus rhythm, in 70s. No murmur gallop or rub. Abdomen: Bowel Sounds Present, Soft, mild tenderness in LLQ on deep palpation. Nondistended : No dysuria. No renal angle tenderness. No suprapubic tenderness. Extremities: No edema, Capillary Refill Less than 3 Seconds Skin: No rashes, No breakdown Musculoskeletal: No Tenderness to Palpation of Joints or Extremities Neurological: Cranial nerves II-XII grossly intact, DTR 2+/4. No acute focal neurological deficit. Psych/Mental Status: Severe anxiety. Flat affect Assessment & Plan Assessment/Plan (1) Abscess of sigmoid colon due to diverticulitis: (2) Abscess of pelvis: (3) Leukocytosis: QUALIFIERS: Leukocytosis type: unspecified Qualified Code(s): D72.829 - Elevated white blood cell count, unspecified (4) Anaphylactic reaction due to adverse effect of correct drug or medicament properly administered, initial encounter: (5) History of rectal surgery: (6) Obesity (BMI 30.0-34.9): PLAN: Plan 64-year-old female admitted with lower abdominal pain that started Thursday, constipation. Bilateral lower quadrant abdominal pain left worse than right after having diarrhea on Thursday, September 17. Passing flatus. She stated her pain gets better with walking and exertion but feels more when she is laying down and resting. 1. Abdominal pain due to sigmoid colon diverticulitis complicated with sigmoid colonic and pelvic abscesses: Patient blood pressure never been below systolic 90 mmHg, her baseline about 110- 120 mmHg. Does not have clear-cut signs of endorgan hypoperfusion therefore sepsis ruled out CT scan of the abdomen and pelvis with IV contrast that revealed sigmoid colon diverticulitis with associated sigmoid colon wall abscess and additional abscess within the pelvis abutting the undersurface of the uterus - Admit to ICU due to multiple abscesses complicated by recent anaphylactic reaction. Plan: Admitted in ICU as per sepsis protocol. Initially patient was given 2 L IV bolus, given IV Zosyn and developed anaphylactic reaction, therefore stopped. She received clindamycin and metronidazole. Surgeon was consulted and seen. Patient had 2 doses of IV clindamycin therefore 2 more doses. Continue IV Flagyl and Levaquin added. ID consult for further recommendation. 09/22: ID consult reviewed and appreciated. IV antibiotic changed to cefepime and Flagyl, would have low risk of prostate DVT with Zosyn. Patient is scheduled for CT abdomen with oral contrast to see any change from the previous CT scan. 09/23: WBC count improving. Follow-up CT scan on 09/22 shows interval improvement in abscesses on the antimesenteric side of colon with residual inflammatory changes in sigmoid colon. ID recommended to continue cefepime and Flagyl and plan on 10 days of total antibiotic with discharge antibiotic of Cipro 500 mg twice daily and Flagyl 5 mL 3 times daily, stop date 10/01/2024. 09/24: Discussed with the surgeon. Abdominal pain has improved. Diverticulitis is controlled. 09/25: CT abdomen with oral contrast was done. Reported abscess of sigmoid colon complicated diverticulitis with abscess within the pelvis abutting the undersurface of uterus therefore suspicion of fistulous connection/[place] fistula. Clear liquid. Continue IV cefepime and IV Flagyl. As per surgeon, if improved then anticipating discharge tomorrow 2. Leukocytosis of 22.9K due to sigmoid diverticulitis and complicated abscesses: Leukocytosis improving. A-fib RVR: Twelve-lead EKG ordered. No previous history of A-fib documented in the chart. Cardizem 50 mg IV bolus ordered for conversant. 2D echo is ordered. 09/23: Follow-up EKG on 09/22 shows normal sinus rhythm at 75 beats per. Metoprolol increased to 25 mg 3 times daily. 2D echo shows EF 65%. Trivial MR. 09/24: She had A-fib with bradycardia last night and resolution analyst was consulted. Advised to continue metoprolol succinate 25 mg daily. Lanoxin was discontinued. 09/25 metoprolol succinate increased to 25 mg twice daily. Mild hypokalemia potassium replaced. 3. Suspected Anaphylactic Reaction to piperacillin-tazobactam in ER: Piperacillin-tazobactam added to patient's list of allergies. Patient had facial swelling generalized erythematous maculopapular rash and itching and was treated with epinephrine, diphenhydramine and IV Pepcid. Zosyn was stopped. 4. History of rectal surgery; due to rectal wall muscle weakness done at outside facility by Dr. Grissom (2022) compounding #1 - #3 - Noted. 5. Obesity; with BMI of 32.8 this admission on semaglutide adding to the burden of disease outlined from #1 - #4 - Weight loss will be recommended. Check TSH. This complicates her case and may hamper recovery. 6. Essential hypertension; on metoprolol, valsartan and bumetanide - Hold oral regimen in favor IV hydralazine IV prn for systolic blood pressure > 160 mmHg. 7. Hyperlipidemia; on rosuvastatin - Hold statin until patient cleared for oral intake. 8. DM-2; currently untreated -A1c 6.6% 9. COPD with history of tobacco use disorder/nicotine dependence: Currently patient not short of breath but has history of intermittent wheezing. Not in exacerbation 10. Severe anxiety and depression; currently not on treatment 09/23: Patient on high-dose of hydroxyzine 50 mg twice daily, decreased to 25 mg twice daily. BuSpar 10 mg twice daily ordered. 11. Chronic primary degenerative arthritis of knee: Give acetaminophen prn 18. DVT/GI prophylaxis -Lovenox and SCD. Pantoprazole 40 mg IV daily. Laboratory Results 09/25/24 04:47: WBC 11.7 H, RBC 3.46 L, Hgb 9.7 L, Hct 29.5 L, MCV 85.3, MCH 28.0, MCHC 32.9, RDW Std Deviation 45.5 H, RDW Coeff of Jose Luis 14.8 H, Plt Count 265, MPV 10.2, Immature Gran % (Auto) 1.800 H, Neut % (Auto) 67.8, Lymph % (Auto) 17.9 L, [place] % (Auto) 9.2, Eos % (Auto) 2.6, Baso % (Auto) 0.7, Absolute Neuts (auto) 7.9 H, Absolute Lymphs (auto) 2.10, Nucleated RBC % 0, Sodium 139, Potassium 3.2 L, Chloride 103, Carbon Dioxide 25.6, Anion Gap 10, BUN 7, Creatinine 0.59 L, Estim Creat Clear Calc 76.20, Est GFR (MDRD) Non-Af 99, BUN/Creatinine Ratio 12.4, Glucose 105 H, Calcium 8.9 Clinical Impression(s) from Imaging Studies Abdomen/Pelvis CT 09/20/24 17:15 IMPRESSION: Sigmoid colon diverticulitis. Associated sigmoid colon wall abscess. Additional abscess within the pelvis abutting the undersurface of the uterus. Reading Location: [id number] Abdomen/Pelvis CT 09/22/24 07:37 IMPRESSION: Residual inflammatory changes seen in the sigmoid colon as described with interval improvement in the previously seen fluid collection in the anti mesenteric side of the sigmoid colon. Reading Location: [facility] Echocardiogram 09/22/24 09:14 Interpretation Summary The estimated ejection fraction is 65 %. Unable to assess diastolic dysfunction. Trivial mitral valve insufficiency. Ordering Physician: Bassam Zelaya Referring Physician: JESSICA TORRES Performed By: Pinky Howard RDCS Abdomen/Pelvis CT 09/25/24 09:43 IMPRESSION: 1. Slight increased size and rim enhancement of the intrapelvic abscess. Abutment of the intrapelvic abscess along the uterus without obvious fistulous connection, however visualization is limited. If clinically indicated, fluoroscopic imaging could be obtained for further evaluation. 2. Stable/slight increased size inform enhancement of the intrapelvic abscess along the sigmoid colon. Surgical consultation recommended. 3. Development of gallbladder wall thickening, pericholecystic fluid and stranding and adjacent liver parenchyma inflammation. Findings are nonspecific and may reflect acalculous cholecystitis. Correlation with patient's symptoms and physical examination recommended. 4. Development of moderate right and small left pleural effusions. 5. Diffuse hepatic steatosis. Reading Location: [id number] Charges/Coding Visit Charges Inpatient E&M: 46929 Subs Hosp L2
[2024-09-25] MEDS: Bumetanide 2 MG Tablet 1 MG PO (17:21)
[2024-09-25] MEDS: Montelukast 10 MG Tablet PO (17:21)
[2024-09-26 03:24] VITALS: BMI 34.8
[2024-09-26 03:29] VITALS: BP 138/68; PULSE 78; RESP 18; TEMP 36.3; O2SAT 94
[2024-09-26] MEDS: Albuterol 2.5 MG/3 ML VIAL.NEB. INHALATION (03:42)
[2024-09-26 03:43] VITALS: PULSE 78; RESP 20
[2024-09-26] MEDS: Cefepime HCl 2 GM in 0.9% Normal Saline (100mL MB+) 100 ML IV (05:19)
[2024-09-26] MEDS: Lactobacillis Acidophilus 1 CAP PO (05:19)
[2024-09-26] MEDS: 0.9% Saline Lock 10 ML Syringe IV (05:22)
[2024-09-26] MEDS: metroNIDAZOLE 500 MG/100 ML BAG 100 MG IV (06:04)
[2024-09-26 06:28] LABS: Absolute Lymphocyte Count 1.98 X10^3/uL (0.83-4.51); Absolute Neutrophil Count 7.2 X10^3/uL (2.0-7.7); Basophil# 0.07 X10^3/uL; Basophil% 0.7 % (0-1); Eosinophil# 0.49 X10^3/uL; Eosinophils% 4.6 % (0-5); Hematocrit 31.9 % (37-47); Hemoglobin 10.6 g/dL (12.0-15.0); Lymphocyte # 1.98 X10^3/ul (0.83-4.51); Lymphocyte % 18.6 % (19-41); Mean Corp Hgb Conc 33.2 g/dL (32-36); Mean Corpuscular Hgb 28.5 pg (27.0-32.0); Mean Corpuscular Volume 85.8 fL (81-99); Mean Platelet Vol. 10.3 fl (6.2-12.0); Monocyte# 0.73 X10^3/uL; Monocyte% 6.9 % (0-10); NRBC Flagged by Analyzer 0 % (0-5); Neutrophil # 7.16 X10^3/uL (2.7-7.7); Neutrophil % 67.4 % (47-70); POSITIVE COUNT YES; Platelet Count 254 K/mm3 (150-450); RBC Distribution Width CV 14.7 % (11.6-14.6); RBC Distribution Width SD 46.4 fl (35.1-43.9); Red Blood Count 3.72 M/mm3 (4.2-5.4); White Blood Count 10.6 K/mm3 (4.4-11.0)
[2024-09-26 06:53] LABS: Magnesium 1.6 mg/dL (1.5-2.2)
[2024-09-26 06:55] LABS: Anion Gap 11 (5-15); BUN 5 mg/dL (4-19); BUN/Creat Ratio 8.3 RATIO (10-20); Calcium,Total 8.7 mg/dL (7.6-11.0); Carbon Dioxide 27.8 mmol/L (21.0-32.0); Chloride 99 mmol/L (98-108); Creatinine, Serum 0.61 mg/dL (0.70-1.20); EST Glomerular Filtration Rate 98 (>60); Estimated Creatinine Clearance 76.24 ml/min (50-250); Glucose 153 mg/dL (70-99); Potassium 3.2 mmol/L (3.3-5.1); Sodium Level 137 mmol/L (133-145)
[2024-09-26] MEDS: Budesonide Respules 0.5 MG/2 ML AMPUL.NEB. INHALATION (07:00)
[2024-09-26] MEDS: Ipratropium/Albuterol Sulfate 3 ML AMPUL.NEB INHALATION (07:00)
[2024-09-26 07:01] VITALS: PULSE 66; RESP 18; O2SAT 94
[2024-09-26 07:03] LABS: Differential Indicated SCAN CRITERIA MET
[2024-09-26 07:04] LABS: Differential Comment SCANNED; Platelet Estimate ADEQUATE (ADEQ)
[2024-09-26 07:07] LABS: Phosphorus 2.5 mg/dL (2.7-4.5)
--- NOTE | 2024-09-26 07:57 | PCM.PN.SRG ---
Subjective Subjective Patient evaluated sitting comfortably in bed. She notes minimal amount of lower abdominal discomfort. She notes this has improved since admission. She denies any nausea, vomiting. She notes tolerating her current diet well. Objective Data Objective Data Vital Signs: Vital Signs Temp Pulse Resp BP Pulse Ox O2 Del Method O2 Flow Rate 97.4 F L 66 18 138/68 H 94 Nasal Cannula 2 09/26/24 03:29 09/26/24 07:01 09/26/24 07:01 09/26/24 03:29 09/26/24 07:01 09/26/24 07:01 09/26/24 07:01 Oxygen Flow Rate (L/min) 2 Oxygen Delivery Method Nasal Cannula Weight: 203 lb 14.841 oz Body Mass Index (BMI) 34.8 Intake & Output: Intake and Output for Last 24 Hours 09/24/24 09/25/24 09/26/24 23:59 23:59 23:59 Intake Total 1180 / 1180 1880 / 1880 680 / 680 Output Total 1200 / 1200 Balance 1180 / 1180 1880 / 1880 -520 / -520 Lab / Micro Data 09/26/24 06:07 09/26/24 06:07 Labs: Laboratory Results - last 24 hr 09/26/24 06:07: WBC 10.6, RBC 3.72 L, Hgb 10.6 L, Hct 31.9 L, MCV 85.8, MCH 28.5, MCHC 33.2, RDW Std Deviation 46.4 H, RDW Coeff of Jose Luis 14.7 H, Plt Count 254, MPV 10.3, Immature Gran % (Auto) 1.800 H, Neut % (Auto) 67.4, Lymph % (Auto) 18.6 L, [place] % (Auto) 6.9, Eos % (Auto) 4.6, Baso % (Auto) 0.7, Absolute Neuts (auto) 7.2, Absolute Lymphs (auto) 1.98, Nucleated RBC % 0, Differential Comment SCANNED, Platelet Estimate ADEQUATE, Sodium 137, Potassium 3.2 L, Chloride 99, Carbon Dioxide 27.8, Anion Gap 11, BUN 5, Creatinine 0.61 L, Estim Creat Clear Calc 76.24, Est GFR (MDRD) Non-Af 98, BUN/Creatinine Ratio 8.3 L, Glucose 153 H, Calcium 8.7, Phosphorus 2.5 L, Magnesium 1.6 Radiography Diagnostic Testing: Radiology Impression Abdomen/Pelvis CT 09/25/24 09:43 IMPRESSION: 1. Slight increased size and rim enhancement of the intrapelvic abscess. Abutment of the intrapelvic abscess along the uterus without obvious fistulous connection, however visualization is limited. If clinically indicated, fluoroscopic imaging could be obtained for further evaluation. 2. Stable/slight increased size inform enhancement of the intrapelvic abscess along the sigmoid colon. Surgical consultation recommended. 3. Development of gallbladder wall thickening, pericholecystic fluid and stranding and adjacent liver parenchyma inflammation. Findings are nonspecific and may reflect acalculous cholecystitis. Correlation with patient's symptoms and physical examination recommended. 4. Development of moderate right and small left pleural effusions. 5. Diffuse hepatic steatosis. Reading Location: [facility] Rhythm Strip Rhythm Strip: Sinus Rhythm Rate: 75 Ectopy: - (Short runs of atrial fibrillation and SVT) Physical Exam GI GI Narrative: Abdomen- soft, slight tenderness in the left lower quadrant. Assessment & Plan Assessment/Plan (1) Abscess of sigmoid colon due to diverticulitis: PLAN: I am following this patient in conjunction with Dr. Mccarty. She will independently evaluate this patient. Labs reviewed. WBC decreased to normal. Increase to transitional diet Discussed low fiber diet going home Okay to restart patient's Eliquis today Recommend antibiotics x 10 days Follow-up with Dr. Peña in 1 week Patient ready for discharge from a surgical standpoint Charges/Coding Visit Charges Inpatient E&M: 65725 Subs Hosp L2
[2024-09-26] MEDS: Montelukast 10 MG Tablet PO (09:03)
[2024-09-26] MEDS: Senna Tablet 1 TABLET PO (09:04)
[2024-09-26] MEDS: busPIRone 5 MG Tablet 10 MG PO ×2 (09:04)
[2024-09-26] MEDS: Bumetanide 2 MG Tablet 1 MG PO (09:04)
[2024-09-26] MEDS: Enoxaparin 40 MG/0.4 ML Syringe SC (09:05)
[2024-09-26 09:24] VITALS: PULSE 62
[2024-09-26] MEDS: Pantoprazole Sodium 40 MG in 0.9% Normal Saline (100mL MB+) 100 ML 330 MG IV (09:24)
[2024-09-26] MEDS: Metoprolol(XL)Succ 25 MG Tablet PO (09:24)
[2024-09-26] MEDS: Magnesium Sulfate 2 GM in Dextrose 5%-Water (100mL Bag) 100 ML IV (09:24)
[2024-09-26 09:25] VITALS: BP 140/70; PULSE 68; RESP 16; TEMP 36.6; O2SAT 96
[2024-09-26] MEDS: Potassium Chloride Oral Tablet 20 MEQ 40 MEQ PO (09:25)
[2024-09-26] MEDS: hydrOXYzine PAM 25 MG Capsule PO (09:37)
--- NOTE | 2024-09-26 10:10 | PCM.DC.SUM ---
Providers Date of Admission: 09/20/24 Date of Discharge: 09/26/24 Primary Care Physician: Dr. Jaret Fuller, Consultations 09/21/24 00:59 Consult: General Surgery Routine Consulting Provider: Enrique Peña Reason for Consult: Sigmoid Diverticulitis with Abscess and Pelvic Abscess. EMERGENT Consult: No Notified: Yes Date Notified: 09/20/24 Time Notified: 23:14 Method of Notification: ED Physician Initiated 09/21/24 08:38 Consult: Infectious Disease Routine Consulting Provider: Prasad Elizalde Reason for Consult: sigmoid and pelvic wall abscesses, allergic to Zosyn EMERGENT Consult: No MD Notified: Yes Date Notified: 09/21/24 Time Notified: 08:38 Method of Notification: Text 09/24/24 01:37 Consult: Cardiology Routine Consulting Provider: Enrqiue Viera Reason for Consult: New afib RVR and subsequent bradycardia EMERGENT Consult: No MD Notified: Yes Date Notified: 09/24/24 Time Notified: 06:46 Method of Notification: Text Method of Consult:: In-Person Reason For Visit: SIGMOID DIVERTICULITIS W/ABCESS, PELVIC ABSCESS Diagnosis Discharge Diagnosis (1) Abscess of sigmoid colon due to diverticulitis: Status: Acute Code(s): K57.20 - Diverticulitis of large intestine with perforation and abscess without bleeding Medications at Discharge Home Medications fluticasone fur. 100 mcg-umeclid 62.5 mcg-vilant 25 mcg inhalat.powder (Trelegy Ellipta) 1 ea inhalation QDAY breathing #28 ea 03/05/24 bumetanide 1 mg tablet 1 mg PO QDAY diuresis #90 tabs 03/28/24 cholecalciferol (vitamin D3) 25 mcg (1,000 unit) capsule (Vitamin D3) 25 mcg PO QDAY vitamin #90 caps 03/28/24 esomeprazole magnesium 40 mg capsule,delayed release 40 mg PO QDAY reflux #90 caps 03/28/24 montelukast 10 mg tablet 10 mg PO QDAY allergies #90 tabs 03/28/24 rosuvastatin 10 mg tablet 10 mg PO QHS cholesterol #90 tabs 03/28/24 valsartan 80 mg tablet 80 mg PO QDAY blood pressure #90 tabs 03/28/24 sennosides 8.6 mg-docusate sodium 50 mg tablet 1 tab-cap PO QHS bowels #30 tabs 06/28/24 semaglutide 1 mg/dose (4 mg/3 mL) subcutaneous pen injector 1 mg (0.75 mL) subcut QWEEK diabetes #3 mL 07/20/24 albuterol sulfate 90 mcg/actuation aerosol inhaler 2 puff inhalation Q6H PRN shortness of breath or wheezing #8.5 grams 08/16/24 hydrocortisone 2.5 % topical cream 1 applic topical BID PRN arm 09/23/24 hydroxyzine HCl 50 mg tablet 50 mg PO BID anxiety 09/23/24 semaglutide 0.25 mg or 0.5 mg (2 mg/3 mL) subcutaneous pen injector (Ozempic) 0.5 mg subcut QWEEK diabetes 09/23/24 sennosides 8.6 mg-docusate sodium 50 mg tablet (Stimulant Laxative Plus) 1 tab-cap PO QHS constipatin 09/23/24 L.acidophil,salivari-Bifido bifidum-Strep thermoph 175 mg capsule 1 cap PO TID 30 days #90 caps 09/26/24 apixaban 5 mg tablet (Eliquis) 5 mg PO BID 30 days #60 tabs 09/26/24 buspirone 10 mg tablet 10 mg PO BID 30 days #60 tabs 09/26/24 ciprofloxacin HCl 500 mg tablet 500 mg PO BID 6 days #12 tabs 09/26/24 metoprolol succinate 25 mg tablet,extended release 24 hr 25 mg PO BID 30 days #60 tabs 09/26/24 metronidazole 500 mg tablet 500 mg PO Q8H 6 days #18 tabs 09/26/24 Hospital Course Operations None Procedures EKG, Transthoracic echo and - (CT abdomen pelvis x 3) Summary of Care Provided Minutes Spent on Discharge: 35 Hospital Course: Patient is a 64-year-old female who presented to [facility] ED on 09/20/2024 with abdominal pain. Hospital course as noted below. Patient discharged home in stable condition on 09/26. 1. Sigmoid diverticulitis with sigmoid and pelvic abscesses ? General Surgery and infectious disease followed. CT abdomen pelvis with IV contrast on admit showed sigmoid colon diverticulitis with associated sigmoid colon wall abscess and additional abscess within the pelvis abutting the undersurface of the uterus. Treated with IV antibiotics while inpatient with improvement in abdominal pain and infectious symptoms. Repeat CT abdomen pelvis on 09/25 called a slight increase size and rim enhancement of intrapelvic abscess, stable size of colonic abscess; per surgery, abscesses appear about stable from previous and no need for surgical intervention at this time. Diet advanced during hospitalization and patient did have bowel movements noted. Per surgery, patient okay for discharge home on 09/26 with recommendation for low fiber diet and p.o. ciprofloxacin and Flagyl to complete 10-day course of antibiotics total. Patient will follow-up with general surgery in [address] imaging to be done at that time. 2. New onset A-fib with RVR ? Cardiology followed. Patient did have multiple short bouts of A-fib during hospitalization. Echo with EF 65%, no concerning findings noted. Rate control is improved with increasing home Toprol to 25 mg twice daily and with improvement in infection as above. Discussed with surgery and patient okay to start Eliquis on discharge for anticoagulation. 3. Suspected anaphylactic reaction to Zosyn ? Patient had facial swelling and generalized erythematous maculopapular rash and itching on treated with Zosyn in the ED. Was given epinephrine, diphenhydramine and IV Pepcid with improvement. Zosyn added to allergy list. Chronic medical conditions: ? Class II obesity: BMI 35 on admit. Complicated hospital course, care and prognosis. ? Hypertension: Continue metoprolol at increased dose as above. Continue home valsartan. ? Hyperlipidemia: Continue home statin. ? Type 2 diabetes mellitus: Treated with sliding scale insulin while inpatient with good sugar control. Okay to resume home Ozempic on discharge. ? COPD: Stable on room air, not in acute exacerbation. Continue home inhalers. ? Anxiety/depression: Continue home BuSpar. ? Chronic tobacco dependence: Discussed cessation on discharge. Total clinical time spent by myself addressing the patient's medical issues, reviewing all the data, and collaborating with patient's care team: 35 minutes. Physical Exam Const alert, oriented x3 and no apparent distress Constitutional Narrative: Upper middle-aged female, class II obesity, mildly anxious appearing but otherwise sitting up comfortably in bedside chair, conversing normally, in no acute distress. General Appearance: cooperative and comfortable HEENT normocephalic, head/scalp atraumatic, hearing grossly normal bilaterally, nasal mucous membranes and turbinates normal and moist oral mucous membranes Eyes PERRL, EOMs intact bilaterally and conjunctivae normal Neck full ROM Chest inspection of chest normal Resp normal respiratory effort, normal air movement, no use of accessory muscles and clear to auscultation bilaterally Cardio regular rate, regular rhythm, no murmurs and peripheral pulses 2+ throughout GI GI Narrative: Mild tenderness to palpation in left lower quadrant, improved from admission. Abdomen otherwise soft and nondistended. Back/Spine normal ROM Extremity normal to inspection, full ROM and no pedal edema Skin no rashes or lesions noted Psych mental status grossly normal Mood & Affect: anxious Weight / BMI Weight Weight: 92.5 kg Body Mass Index (BMI) 34.8 ABG / Lab / Microbiology Data 09/26/24 06:07 09/26/24 06:07 Laboratory: Laboratory Results - last 24 hr 09/26/24 06:07: WBC 10.6, RBC 3.72 L, Hgb 10.6 L, Hct 31.9 L, MCV 85.8, MCH 28.5, MCHC 33.2, RDW Std Deviation 46.4 H, RDW Coeff of Jose Luis 14.7 H, Plt Count 254, MPV 10.3, Immature Gran % (Auto) 1.800 H, Neut % (Auto) 67.4, Lymph % (Auto) 18.6 L, [place] % (Auto) 6.9, Eos % (Auto) 4.6, Baso % (Auto) 0.7, Absolute Neuts (auto) 7.2, Absolute Lymphs (auto) 1.98, Nucleated RBC % 0, Differential Comment SCANNED, Platelet Estimate ADEQUATE, Sodium 137, Potassium 3.2 L, Chloride 99, Carbon Dioxide 27.8, Anion Gap 11, BUN 5, Creatinine 0.61 L, Estim Creat Clear Calc 76.24, Est GFR (MDRD) Non-Af 98, BUN/Creatinine Ratio 8.3 L, Glucose 153 H, Calcium 8.7, Phosphorus 2.5 L, Magnesium 1.6 Radiography Diagnostic Testing: Radiology Impression Abdomen/Pelvis CT 09/25/24 09:43 IMPRESSION: 1. Slight increased size and rim enhancement of the intrapelvic abscess. Abutment of the intrapelvic abscess along the uterus without obvious fistulous connection, however visualization is limited. If clinically indicated, fluoroscopic imaging could be obtained for further evaluation. 2. Stable/slight increased size inform enhancement of the intrapelvic abscess along the sigmoid colon. Surgical consultation recommended. 3. Development of gallbladder wall thickening, pericholecystic fluid and stranding and adjacent liver parenchyma inflammation. Findings are nonspecific and may reflect acalculous cholecystitis. Correlation with patient's symptoms and physical examination recommended. 4. Development of moderate right and small left pleural effusions. 5. Diffuse hepatic steatosis. Reading Location: [id number] D/C Instructions DC O2, CPAP, BIPAP Needs Home O2 Discharge instructions: No Meaningful Use Info Meaningful Use Meaningful Use Diagnoses (Choose all that apply): None applicable Ischemic Stroke Statin Dosing Therapy Reference: STATIN DOSE THERAPY REFERENCE: * Patients > 75 years receive moderate or high dose statin therapy. * Patients 75 years or YOUNGER should receive HIGH intensity statin dose unless contraindicated. You will be required to document reason for non-treatment if statin daily dose does not meet guidelines. HIGH DOSE STATIN THERAPY DAILY Atorvastatin > than or = to 40 mg Rosuvastatin > than or = to 20 mg Amlodipine + Atorvastatin > than or = to 2.5/40 mg Ezetimibe + Simvastatin 10/80 mg Simvastatin 80mg Discharge Plan Admission Admit Date/Time: 09/20/24 23:06 Primary Reason for Your Visit: Abdominal pain Attending Provider: Matt Molina Primary Care Provider: Jarte Fuller Consulting Providers: Evans Adams; Enrique Peña; Prasad Elizalde; Enrique Viera; Bassam Zelaya Instructions Additional Instructions / Restrictions: Please take 6 more days of ciprofloxacin and Flagyl to complete 10-day course of antibiotics total. Start taking Eliquis twice daily and Toprol twice daily for A-fib. Take BuSpar twice daily for anxiety. The general surgery office will schedule a follow-up appointment for you in the next week. Please eat a low fiber diet as noted below. What are low-fiber foods? If your doctor tells you to follow a low-fiber diet, here are low-fiber foods you can eat and higher-fiber foods you should avoid. Remember to always choose foods that you would normally eat. Do not try any foods that caused you discomfort or allergic reactions in the past. If you are on a ?low-residue diet,? your food choices are even more restricted than those listed below. Meat, fish, poultry, and protein Eat: Tender cuts of meat Ground meat Tofu Fish and shellfish Smooth peanut butter Eggs Bake, broil, or poach meats, and use mild seasonings. Try preparing meats as stews, roasts, meatloaves, casseroles, sandwiches, and soups using ingredients on the approved lists. Scramble, poach, or boil eggs; or make omelets, souffl?s, custard, puddings, and casseroles, using ingredients noted below. You might want to ask your doctor, nurse, or dietitian about other foods may be OK for you to eat, and find out when you can go back to your normal diet. Avoid: All beans, nuts, peas, lentils, and legumes Processed meats, hot dogs, sausage, and cold cuts Tough meats with gristle Dairy: Milk and cheese Eat: Only in small to medium amounts and only if they don?t cause problems for you Milk, chocolate milk, buttermilk, and milk drinks Yogurt without seeds or granola Sour cream Cheese Cottage cheese Custard or pudding Ice cream or frozen desserts (without nuts) Cream sauces, soups, and casseroles You can use these items in desserts, snacks, or breads. Bread, cereals, and grains Eat: White breads, waffles, [place] toast, plain white rolls, or white bread toast Pretzels Plain pasta or noodles White rice Crackers, zwieback, jimbo, and matzoh (no cracked wheat or whole grains) Cereals without whole grains, added fiber, seeds, raisins, or other dried fruit Use white flour for baking and making sauces. Grains, such as white rice, Cream of Wheat, or grits, should be well-cooked. Include the above grains in casseroles, dumplings, souffl?s, cheese strata, kugels, and pudding. Avoid any food that contains: Brown or wild rice Whole grains, cracked grains, or whole wheat products Kasha (buckwheat) Cornbread or cornmeal Jose crackers Bran Wheat germ Nuts Granola Coconut Dried fruit Seeds Vegetables and potatoes Eat: Tender, well-cooked fresh or canned vegetables without seeds, stems, or skins Cooked sweet or white potatoes without skins Strained vegetable juices without pulp or spices You can also eat these with cream sauces, or in soups, souffl?s, kugels, and casseroles. Avoid: All raw or steamed vegetables All types of beans Potatoes with skin Peas Drybranch Cabbage, broccoli, cauliflower, [place] sprouts, and greens Sauerkraut Onions Fruits and desserts Eat: Soft canned or cooked fruit without seeds or skins (small amounts) Small amounts of well-ripened banana Strained or clear juices Small amounts of soft cantaloupe or honeydew melon Cookies and other desserts without whole grains, dried fruit, berries, nuts, or coconut Sherbet and popsicles Serving suggestions include gelatins, milk shakes, frozen desserts, puddings, tapioca, cakes, and sauces. Avoid: All raw or dried fruits Berries Prune juice, prunes, and raisins Other foods Eat: Mayonnaise and mild salad dressings Margarine, butter, cream, and oils in small amounts Plain gravies Plain bouillon and broth Ketchup and mild mustard Spices, cooked herbs, and salt Sugar, honey, and syrup Clear jellies Hard candy and marshmallows Plain chocolate Avoid: Marmalade Pickles, olives, relish, and horseradish Popcorn Potato chips Liquids Keep in mind that low-fiber foods cause fewer bowel movements and smaller stools. You may need to drink extra fluids to help prevent constipation while you are on a low-fiber diet. Drink plenty of water unless your doctor tells you otherwise, and use juices and milk as noted above. Discharge Orders/Prescriptions Prescriptions: New buspirone 10 mg tablet 10 mg PO BID 30 Days Qty: 60 2RF metoprolol succinate 25 mg Tablet Extended Release 24 Hr 25 mg PO BID 30 Days Qty: 60 2RF L.acidoph,saliva-B.bif-S.therm 175 mg Capsule 1 cap PO TID 30 Days Qty: 90 2RF ciprofloxacin HCl 500 mg tablet 500 mg PO BID 6 Days Qty: 12 0RF metronidazole 500 mg tablet 500 mg PO Q8H 6 Days Qty: 18 0RF Eliquis 5 mg tablet 5 mg PO BID 30 Days Qty: 60 2RF Continued semaglutide 1 mg/dose (4 mg/3 mL) pen injector 1 mg subcut QWEEK Qty: 3 2RF Patient Comments: PT TAKES ON WEDNESDAYS sennosides-docusate sodium [Stimulant Laxative Plus] 8.6-50 mg tablet 1 tab-cap PO QHS Ozempic 0.25 mg or 0.5 mg (2 mg/3 mL) pen injector 0.5 mg subcut QWEEK hydrocortisone 2.5 % cream 1 applic topical BID PRN (Reason: arm) hydroxyzine HCl 50 mg tablet 50 mg PO BID Trelegy Ellipta 100-62.5-25 mcg blister with device 1 ea inhalation QDAY Qty: 28 1RF bumetanide 1 mg tablet 1 mg PO QDAY Qty: 90 0RF cholecalciferol (vitamin D3) [Vitamin D3] 25 mcg (1,000 unit) capsule 25 mcg PO QDAY Qty: 90 0RF esomeprazole magnesium 40 mg capsule,delayed release(DR/EC) 40 mg PO QDAY Qty: 90 0RF montelukast 10 mg tablet 10 mg PO QDAY Qty: 90 0RF rosuvastatin 10 mg tablet 10 mg PO QHS Qty: 90 0RF valsartan 80 mg tablet 80 mg PO QDAY Qty: 90 0RF sennosides-docusate sodium 8.6-50 mg tablet 1 tab-cap PO QHS Qty: 30 6RF albuterol sulfate 90 mcg/actuation HFA aerosol inhaler 2 puff inhalation Q6H PRN (Reason: shortness of breath or wheezing) Qty: 8.5 1RF Discontinued metoprolol succinate 25 mg tablet extended release 24 hr 25 mg PO QDAY Qty: 90 0RF indomethacin 25 mg capsule 25 mg PO BID Qty: 60 1RF Rx Instructions: administer with food or milk Referrals / Follow Up: Jaret Fuller DO [Primary Care Provider] - Enrique Peña MD [Med Staff - Active Staff] - In 1 Week (Follow-up in 1 week to discuss future colonoscopy) Disposition Disposition (needs filled in before D/C Order can be placed): Home, Self Care Charges/Coding Visit Charges Inpatient E&M: 40529 Disch Hosp >30min
--- NOTE | 2024-09-26 11:27 | PHA.DC_ITS ---
Pharmacy [facility] Counseling Pharmacy Service has performed discharge medication reconciliation and counseling for this patient. The patient's discharge medication list was reviewed for discrepancies and discrepancies were resolved. The patient was counseled on the following discharge medications and changes in medications for homegoing were reviewed. The Reason for Use, instructions for use, and potential side effects were reviewed for all new medications. The patient's questions regarding all of their medications were answered. 1. Buspirone 10 mg PO BID 2. Ciprofloxacin 500 mg PO BID x 6 days 3. Eliquis 5 mg PO BID 4. Metoprolol succinate 25 mg PO BID 5. Metronidazole 500 mg PO TID x 6 days The patient was able to verbally demonstrate an understanding of their discharge medications. Medications at Discharge Home Medications fluticasone fur. 100 mcg-umeclid 62.5 mcg-vilant 25 mcg inhalat.powder (Trelegy Ellipta) 1 ea inhalation QDAY breathing #28 ea 03/05/24 bumetanide 1 mg tablet 1 mg PO QDAY diuresis #90 tabs 03/28/24 cholecalciferol (vitamin D3) 25 mcg (1,000 unit) capsule (Vitamin D3) 25 mcg PO QDAY vitamin #90 caps 03/28/24 esomeprazole magnesium 40 mg capsule,delayed release 40 mg PO QDAY reflux #90 caps 03/28/24 montelukast 10 mg tablet 10 mg PO QDAY allergies #90 tabs 03/28/24 rosuvastatin 10 mg tablet 10 mg PO QHS cholesterol #90 tabs 03/28/24 valsartan 80 mg tablet 80 mg PO QDAY blood pressure #90 tabs 03/28/24 sennosides 8.6 mg-docusate sodium 50 mg tablet 1 tab-cap PO QHS bowels #30 tabs 06/28/24 semaglutide 1 mg/dose (4 mg/3 mL) subcutaneous pen injector 1 mg (0.75 mL) subcut QWEEK diabetes #3 mL 07/20/24 albuterol sulfate 90 mcg/actuation aerosol inhaler 2 puff inhalation Q6H PRN shortness of breath or wheezing #8.5 grams 08/16/24 hydrocortisone 2.5 % topical cream 1 applic topical BID PRN arm 09/23/24 hydroxyzine HCl 50 mg tablet 50 mg PO BID anxiety 06/20/25 semaglutide 0.25 mg or 0.5 mg (2 mg/3 mL) subcutaneous pen injector (Ozempic) 0.5 mg subcut QWEEK diabetes 09/23/24 sennosides 8.6 mg-docusate sodium 50 mg tablet (Stimulant Laxative Plus) 1 tab- cap PO QHS constipatin 09/23/24 L.acidophil,salivari-Bifido bifidum-Strep thermoph 175 mg capsule 1 cap PO TID 30 days #90 caps 09/26/24 apixaban 5 mg tablet (Eliquis) 5 mg PO BID 30 days #60 tabs 09/26/24 buspirone 10 mg tablet 10 mg PO BID 30 days #60 tabs 09/26/24 ciprofloxacin HCl 500 mg tablet 500 mg PO BID 6 days #12 tabs 09/26/24 metoprolol succinate 25 mg tablet,extended release 24 hr 25 mg PO BID 30 days #60 tabs 09/26/24 metronidazole 500 mg tablet 500 mg PO Q8H 6 days #18 tabs 09/26/24
--- NOTE | 2024-09-26 12:18 | CASEMGMT ---
Patient has order for discharge. Patient is discharging on Eliquis, JACKIE CHIN called [facility] retail and no copay for Eliquis. RN CM in to discuss needs at discharge. Patient denies help at discharge. Patient states she will need transport home and would like to use the [facility] Van. RN ELSY called Transportation and they have availability at 1400. RN ELSY updated patient, patient appreciative. Patient had no further questions or concerns. JACKIE CHIN updated nursing.
== END 2024-09-26 13:26 | disposition home or self-care (01) | DRG 392 ==
LOC: ED 21:19 → ICU 23:15 → PCU 09-22 17:31
PROVIDERS: Internal Medicine; Admitting Provider Internal Medicine; Emergency Provider Emergency Medicine; PCP Family Medicine; Visit Provider Hospitalist
DX: K57.20 Diverticulitis of large intestine with perforation and abscess without bleeding (principal); N82.4 Other female intestinal-genital tract fistulae; T88.6XXA Anaphylactic reaction due to adverse effect of correct drug or medicament properly administered, initial encounter; E11.9 Type 2 diabetes mellitus without complications; J44.9 Chronic obstructive pulmonary disease, unspecified; I10 Essential (primary) hypertension; F32.A Depression, unspecified; K76.0 Fatty (change of) liver, not elsewhere classified; E66.812 Obesity, class 2; I48.0 Paroxysmal atrial fibrillation; E78.5 Hyperlipidemia, unspecified; K58.9 Irritable bowel syndrome, unspecified; M17.10 Unilateral primary osteoarthritis, unspecified knee; G47.30 Sleep apnea, unspecified; F41.9 Anxiety disorder, unspecified; F17.219 Nicotine dependence, cigarettes, with unspecified nicotine-induced disorders; M62.81 Muscle weakness (generalized); Z79.51 Long term (current) use of inhaled steroids; Z83.3 Family history of diabetes mellitus; Z68.32 Body mass index [BMI] 32.0-32.9, adult; Z79.1 Long term (current) use of non-steroidal anti-inflammatories (NSAID); Z79.85 Long-term (current) use of injectable non-insulin antidiabetic drugs; Z68.35 Body mass index [BMI] 35.0-35.9, adult; Z85.41 Personal history of malignant neoplasm of cervix uteri; N73.9 Female pelvic inflammatory disease, unspecified
CPT/HCPCS: 36415; 74177; 80048; 80053; 81001; 83036; 83605; 83735; 84100; 84443; 85025; 93005; 93306; 94640; 94668; 94762; 97161; 99285; Q9967; A4216; J2405

== ENCOUNTER → 2024-10-26 | Outpatient (CLI) | payer MEDICARE, MEDICAID, SELFPAY ==
--- NOTE | 2024-10-26 15:51 | CT_ITS ---
PROCEDURE: ABDOMEN/PELVIS WITH CONTRAST 10/26/2024 REASON FOR EXAM: PERFORATED SIGMOID DIVERTICULITIS WITH ABSCESS TECHNIQUE: ABDOMEN/PELVIS WITH CONTRAST Coronal and Sagittal reconstruction series were provided. CONTRAST: Isovue 300 VOLUME: 97 mL One or more dose reduction techniques were used (e.g., Automated exposure control, adjustment of the mA and/or kV according to patient size, use of iterative reconstruction technique. RADIATION DOSE SUMMARY: CTDlvol: 31 mGy DLP: 1091 mGycm COMPARISON: 09/25/2024 FINDINGS: Under aerated lung bases. Normal heart size. Diffuse hepatic steatosis. Unremarkable gallbladder, pancreas, spleen, adrenal glands. Small simple left renal cyst. No hydronephrosis. Normal bladder. Fibroid uterus. Normal ovaries. No retroperitoneal or pelvic adenopathy. No free air. Nondistended bowel. Normal appendix. Multiple diverticula. No acute large bowel findings. Lumbar spine scoliosis and degeneration. No acute abdominal wall findings. Previous examination showed multiple small pelvic abscesses, with interval resolution. CT/Abdomen/Pelvis WITH Contrast IMPRESSION: Interval resolution of pelvic abscesses. No acute abdominal or pelvic findings. Reading Location: [place] [id number]
== END | disposition home or self-care (01) ==
LOC: CT 15:48
PROVIDERS: PCP Family Medicine; Referring Provider Physician Assistant; Visit Provider Physician Assistant
DX: K57.20 Diverticulitis of large intestine with perforation and abscess without bleeding (principal)
CPT/HCPCS: 74177; Q9967

== ENCOUNTER 2024-12-01 08:23 | Day surgery (SDC) | payer MEDICARE, MEDICAID, SELFPAY ==
--- NOTE | 2024-11-28 14:44 | PAT.ANE_ITS ---
Pre-Assessment Diagnosis/Proposed Procedure Planned Operative Procedure(s): COLONOSCOPY Anesthesia History Anesthesia History - supervisor show operations: Anesthesia History - supervisor show operations Hx Hospitalization Yes: 09/202411/28/24 14:28 Any Problems With Anesthesia No 11/28/24 14:28 Cholinesterase deficiency No 11/28/24 14:28 You/Your Family Experience No 11/28/24 14:28 fever (hyperthermia) with Relationship Recent Exposure to Contagious Disease Does patient have nerve No 11/28/24 14:28 stimulator Patient instructed to have device shut off --Does patient have Pacemaker or ICD? When Was Last Pacemaker Check QUESTION #4 FULL TEXT: You/Your Family Experience fever (hyperthermia) with Anesthesia Last Oral Intake Last Oral intake: Last Oral Intake NPO since Meds taken in AM with sips of water? Meds patient instructed to take am of surgery PONV PONV - supervisor show operations: PONV - supervisor show operations Female Yes 11/28/24 14:28 HX of Motion Sickness No 11/28/24 14:28 HX of N/V After Surgery No 11/28/24 14:28 Non-Smoker No 11/28/24 14:28 Duration of Surgery greater No 11/28/24 14:28 than 60 minutes Number of Risk Factors 1 11/28/24 14:28 PONV Score Low Risk 11/28/24 14:28 Height & Weight Height & Weight: Anesthesia: Height & Weight Height 5 ft 4 in 10/05/24 14:54 Respiratory Assessment Respiratory Assessment - supervisor show operations: Respiratory Tract Infection Hx - supervisor show operations Hx Respiratory Tract Infection No 11/28/24 14:28 STOP Sleep Apnea STOP Sleep Apnea - supervisor show operations: STOP Sleep Apnea - supervisor show operations Hx Hypertension Yes: CONTROLLED ON MED 11/28/24 14:28 Hx Sleep Apnea No 11/28/24 14:28 CPAP BIPAP Do you snore loudly (louder No 11/28/24 14:28 than talking or can be heard Do you often feel tired/ No 11/28/24 14:28 fatigued/ sleepy during daytime? Has anyone observed you stop No 11/28/24 14:28 breathing during sleep? STOP Results Negative 11/28/24 14:28 QUESTION #5 FULL TEXT : Do you snore loudly (louder than talking or can be heard through closed doors)? 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 Specify any problems Hx of Preganancy in last 3 No 11/28/24 14:28 Months Nurse Filling Out Transfusion VCHRISTIN 11/28/24 14:28 & Questions: Date: 11/28/24 11/28/24 14:28 Time: 14:29 11/28/24 14:28 Patient unable to answer at this time (ie. confused, unrespo /Reproduction History /Reproductive History - supervisor show operations: /Reproductive Hx- supervisor show operations Hx Now No 11/28/24 14:28 Gestational Age (in weeks): EDC: Hx Hx Para Hx Section SAB No 11/28/24 14:28 [facility] Medical History (Updated 11/28/24 @ 14:28 by Kirstie Flores) Wears dentures Wears glasses Post-menopausal Anxiety History of steroid therapy Excessive bleeding Back pain Gastroparesis Gastric reflux Smoker Asthma Shortness of breath on exertion History of pain when walking History of echocardiogram Cardiology follow-up encounter A-fib Obesity (BMI 30.0-34.9) Anaphylactic reaction due to adverse effect of correct drug or medicament properly administered, initial encounter Renal insufficiency Abscess of pelvis Abscess of sigmoid colon due to diverticulitis Pigmented nevus Groin cyst Nicotine dependence COPD (chronic obstructive pulmonary disease) Depression Cervical cancer Skin cancer IBS (irritable bowel syndrome) Hyperlipemia Hypertension Diabetes Carpal tunnel syndrome Arthritis Glaucoma Anal fissure Home Medications ?Medication ?Instructions ?Recorded ?Last Taken ?Type fluticasone fur. 100 mcg-umeclid 1 ea inhalation QDAY breathing #28 03/05/24 Unknown Rx 62.5 mcg-vilant 25 mcg ea inhalat.powder (Trelegy Ellipta) albuterol sulfate 90 mcg/actuation 2 puff inhalation Q 6H PRN 08/16/24 Unknown Rx aerosol inhaler shortness of breath or wheez ing #8.5 grams hydrocortisone 2.5 % topical cream 1 applic topical BI D PRN arm 09/23/24 Unknown History sennosides 8.6 mg-docusate sodium 1 tab-cap PO QHS con stipatin 09/23/24 Unknown History 50 mg tablet (Stimulant Laxative Plus) L.acidophil,salivari-Bifido 1 cap PO TID 30 days #90 c aps 09/26/24 Unknown Rx bifidum-Strep thermoph 175 mg capsule apixaban 5 mg tablet (Eliquis) 5 mg PO BID 30 days #60 tabs 09/26/24 11/28/24 Rx buspirone 10 mg tablet 10 mg PO BID 30 days #60 tab s 09/26/24 Unknown Rx metoprolol succinate 25 mg 25 mg PO BID 30 days #60 ta bs 09/26/24 Unknown Rx tablet,extended release 24 hr semaglutide 1 mg/dose (4 mg/3 mL) 1 mg (0.75 mL) subcu t QWEEK #3 mL 10/05/24 11/22/24 Rx subcutaneous pen injector (Ozempic) bumetanide 1 mg tablet 1 mg PO QDAY diuresis #90 ta bs 10/19/24 Unknown Rx esomeprazole magnesium 40 mg 40 mg PO QDAY reflux #90 caps 10/19/24 Unknown Rx capsule,delayed release hydroxyzine HCl 50 mg tablet 50 mg PO BID anxiety #180 TABLETS 10/19/24 Unknown Rx montelukast 10 mg tablet 10 mg PO QDAY allergies #90 tabs 10/19/24 Unknown Rx rosuvastatin 10 mg tablet 10 mg PO QHS cholesterol #90 tabs 10/19/24 Unknown Rx valsartan 80 mg tablet 80 mg PO QDAY blood pressure #90 10/19/24 Unknown Rx tabs bisacodyl 5 mg tablet,delayed 20 mg (4 x 5 mg) PO ONCE #4 tabs 11/03/24 Unknown Rx release (Dulcolax (bisacodyl)) cholecalciferol (vitamin D3) 25 25 mcg PO DAILY #90 ca ps 11/03/24 Unknown Rx mcg (1,000 unit) capsule polyethylene glycol 3350 17 See Rx Instructions PO .CO MPLEX 11/03/24 Unknown Rx gram/dose oral powder (Miralax) #238 grams Allergy/AdvReac Type Severity Reaction Status Date / Time Penicillins (PCN) Allergy Severe Rash Verified 11/28/24 14:12 hydrocodone Allergy RASH Verified 11/28/24 14:12 piperacillin (From Zosyn) Allergy Hives Verified 11/28/24 14:12 Sulfa (Sulfonamide Allergy UNSURE Verified 11/28/24 14:12 Antibiotics) tazobactam (From Zosyn) Allergy Hives Verified 11/28/24 14:12 meloxicam AdvReac Severe facial Verified 11/28/24 14:12 swellling naproxen AdvReac Nausea Verified 11/28/24 14:12 tramadol AdvReac Nausea Verified 11/28/24 14:12 trazodone AdvReac PT UNSURE Verified 11/28/24 14:12 OF REACTION Family History Sister Bleeding disorder Diabetes Epilepsy Father Heart disease Hypertension Bowel disease Mother Heart disease Hyperlipemia Surgical History (Updated 11/28/24 @ 14:28 by Kirstie Flores) History of rectal surgery H/O: section S/P rotator cuff surgery Social History adopted: No household members: none number of children: 3 current occupational status: retired pets and animals: Yes (2) pets and animals: fish sexually active: No Smoking Status: Current every day smoker tobacco type: cigarettes Tobacco: How many years used: 45 alcohol intake: never substance use type: does not use caffeine: Yes (2) Type: coffee what type of physical activity do you participate in: none do you feel safe at home: Yes Audit: Pertinent Findings Pertinent Findings EKG Perinent findings: EKG September 24, 2024: Marked sinus bradycardia. Echo (EF%) pertinent findings: Echocardiogram performed 09/22/2024 Interpretation Summary The estimated ejection fraction is 65 %. Unable to assess diastolic dysfunction. Trivial mitral valve insufficiency. Consult pertinent findings: Cardiology note dated 09/25/2024: Patient was found to have paroxysmal atrial fibrillation. It was recommended to place the patient on metoprolol and increase that to twice daily 25 mg. The patient was also recommended to start oral anticoagulation but due to her sigmoid diverticulitis and abscess it was deferred until the situation was stabilized. She was placed on Eliquis since this note was placed. Recommendation Anesthesia Recommendation Anesthesia recommendation: OPTIMIZED for anesthesia
[2024-12-01] VITALS (7 sets, daily range): BP systolic 82–130; BP diastolic 48–76; PULSE 70–79; RESP 16–18; TEMP 36–36.6; O2SAT 89–95; BMI 33.2
[2024-12-01] MEDS: Lactated Ringers 1,000 ML 15 ML IV (09:04)
--- NOTE | 2024-12-01 09:27 | PCM.PRE.AN2 ---
ASA Classification* ASA Classification ASA Classification: 3 Assessment & Plan Anesthesia* Anesthesia Assessment Anesthesia Assessment: Discussed sedation and/or anesthesia options, risks, benefits, and alternatives with patient/parents/legal guardian/POA. Questions invited. The patient/parents/legal guardian/POA seems to understand and agrees to proceed with anesthesia plan. Reviewed the physical assessment, medical history, allergy history and patient home medications list prior to surgery/procedure/anesthetic and documented any changes. Performed airway and anesthesia risk assessments. Anesthesia Type Anesthesia Type: MAC History Source History Obtained from:: Patient and Chart Anesthesia Focused Assessment* Temperature: 97.1 F Pulse Rate: 79 Blood Pressure: 112/66 Respiratory Rate: 18 Pulse Ox: 95 Oxygen Delivery Method: Room Air Airway Assessment Mouth opens: >3 cm Mallampati Score: I Teeth Condition: Dentures (Patient has full dentures upper and lower. They are out.) Neck Range of motion (ROM): Limited ROM (Somewhat Decreased) Labs Anesthesia Preop lab: CBC WBC 10.6 K/mm3 (4.4-11.0) 09/26/24 06:07 09/26/24 RBC 3.72 M/mm3 (4.2-5.4) L 09/26/24 06:07 09/26/24 Hgb 10.6 g/dL (12.0-15.0) L 09/26/24 06:07 09/26/24 Hct 31.9 % (37-47) L 09/26/24 06:07 09/26/24 Plt Count 254 K/mm3 (150-450) 09/26/24 06:07 09/26/24 CHEMISTRY Potassium 3.2 mmol/L (3.3-5.1) L 09/26/24 06:07 09/26/24 Sodium 137 mmol/L (133-145) 09/26/24 06:07 09/26/24 Magnesium 1.6 mg/dL (1.5-2.2) 09/26/24 06:07 09/26/24 Phosphorus 2.5 mg/dL (2.7-4.5) L 09/26/24 06:07 09/26/24 BUN 5 mg/dL (4-19) 09/26/24 06:07 09/26/24 Creatinine 0.61 mg/dL (0.70-1.20) L 09/26/24 06:07 09/26/24 Glucose 153 mg/dL (70-99) H 09/26/24 06:07 09/26/24 TSH 1.500 uIU/mL (0.300-4.200) 09/20/24 16:07 09/20/24 COAG Pre-Assessment Diagnosis/Proposed Procedure Planned Operative Procedure(s): COLONOSCOPY Anesthesia History 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 When Was Last Pacemaker Check QUESTION #4 FULL TEXT: You/Your Family Experience fever (hyperthermia) with Anesthesia Last Oral Intake Last Oral intake: Last Oral Intake NPO since 11:00 12/01/24 08:48 Meds taken in AM with sips of Yes 12/01/24 08:48 water? Meds patient instructed to take am of surgery PONV PONV - real estate office supervisor: PONV - real estate office supervisor Female Yes 11/28/24 14:28 HX of Motion Sickness No 11/28/24 14:28 HX of N/V After Surgery No 11/28/24 14:28 Non-Smoker No 11/28/24 14:28 Duration of Surgery greater No 11/28/24 14:28 than 60 minutes Number of Risk Factors 1 11/28/24 14:28 PONV Score Low Risk 11/28/24 14:28 Height & Weight Height & Weight: Anesthesia: Height & Weight Height 5 ft 4 in 12/01/24 08:48 Weight: 87.8 kg 12/01/24 08:48 Body Mass Index (BMI) 33.2 12/01/24 08:48 Respiratory Assessment Respiratory Assessment - real estate office supervisor: Respiratory Tract Infection Hx - real estate office supervisor Hx Respiratory Tract Infection No 11/28/24 14:28 STOP Sleep Apnea STOP Sleep Apnea - real estate office supervisor: STOP Sleep Apnea - real estate office supervisor Hx Hypertension Yes: CONTROLLED ON MED 11/28/24 14:28 Hx Sleep Apnea No 11/28/24 14:28 CPAP BIPAP Do you snore loudly (louder No 11/28/24 14:28 than talking or can be heard Do you often feel tired/ No 11/28/24 14:28 fatigued/ sleepy during daytime? Has anyone observed you stop No 11/28/24 14:28 breathing during sleep? STOP Results Negative 11/28/24 14:28 QUESTION #5 FULL TEXT : Do you snore loudly (louder than talking or can be heard through closed doors)? 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 Specify any problems Hx of Preganancy in last 3 No 11/28/24 14:28 Months Nurse Filling Out Transfusion VCHRISTIN 11/28/24 14:28 & Questions: Date: 11/28/24 11/28/24 14:28 Time: 14:29 11/28/24 14:28 Patient unable to answer at this time (ie. confused, unrespo /Reproduction History /Reproductive History - real estate office supervisor: /Reproductive Hx- real estate office supervisor Hx Now No 11/28/24 14:28 Gestational Age (in weeks): EDC: Hx Hx Para Hx Section SAB No 11/28/24 14:28 Active Medications Active Medications: Current Medications Generic Name Dose Route Start Last Admin Trade Name Freq PRN Reason Stop Dose Admin Lactated Ringer's 1,000 mls @ 15 mls/hr 12/01/24 08:45 12/01/24 09:04 IV 15 mls/hr .Q48H YING Administration PFSH Medical History Wears dentures Wears glasses Post-menopausal Anxiety History of steroid therapy Excessive bleeding Back pain Gastroparesis Gastric reflux Smoker Asthma Shortness of breath on exertion History of pain when walking History of echocardiogram Cardiology follow-up encounter A-fib Obesity (BMI 30.0-34.9) Anaphylactic reaction due to adverse effect of correct drug or medicament properly administered, initial encounter Renal insufficiency Abscess of pelvis Abscess of sigmoid colon due to diverticulitis Pigmented nevus Groin cyst Nicotine dependence COPD (chronic obstructive pulmonary disease) Depression Cervical cancer Skin cancer IBS (irritable bowel syndrome) Hyperlipemia Hypertension Diabetes Carpal tunnel syndrome Arthritis Glaucoma Anal fissure Home Medications ?Medication ?Instructions ?Recorded ?Last Taken ?Type fluticasone fur. 100 mcg-umeclid 1 ea inhalation QDAY breathing #28 03/05/24 Unknown Rx 62.5 mcg-vilant 25 mcg ea inhalat.powder (Trelegy Ellipta) albuterol sulfate 90 mcg/actuation 2 puff inhalation Q6H PRN 08/16/24 Unknown Rx aerosol inhaler shortness of breath or wheezing #8.5 grams hydrocortisone 2.5 % topical cream 1 applic topical BID PRN arm 09/23/24 Unknown History sennosides 8.6 mg-docusate sodium 1 tab-cap PO QHS constipatin 09/23/24 Unknown History 50 mg tablet (Stimulant Laxative Plus) L.acidophil,salivari-Bifido 1 cap PO TID 30 days #90 caps 09/26/24 Unknown Rx bifidum-Strep thermoph 175 mg capsule apixaban 5 mg tablet (Eliquis) 5 mg PO BID 30 days #60 tabs 09/26/24 11/28/24 Rx buspirone 10 mg tablet 10 mg PO BID 30 days #60 tabs 09/26/24 Unknown Rx metoprolol succinate 25 mg 25 mg PO BID 30 days #60 tabs 09/26/24 12/01/24 Rx tablet,extended release 24 hr semaglutide 1 mg/dose (4 mg/3 mL) 1 mg (0.75 mL) subcut QWEEK #3 mL 10/05/24 11/22/24 Rx subcutaneous pen injector (Ozempic) bumetanide 1 mg tablet 1 mg PO QDAY diuresis #90 tabs 10/19/24 Unknown Rx esomeprazole magnesium 40 mg 40 mg PO QDAY reflux #90 caps 10/19/24 Unknown Rx capsule,delayed release hydroxyzine HCl 50 mg tablet 50 mg PO BID anxiety #180 TABLETS 10/19/24 Unknown Rx montelukast 10 mg tablet 10 mg PO QDAY allergies #90 tabs 10/19/24 Unknown Rx rosuvastatin 10 mg tablet 10 mg PO QHS cholesterol #90 tabs 10/19/24 Unknown Rx valsartan 80 mg tablet 80 mg PO QDAY blood pressure #90 10/19/24 12/01/24 Rx tabs bisacodyl 5 mg tablet,delayed 20 mg (4 x 5 mg) PO ONCE #4 tabs 11/03/24 Unknown Rx release (Dulcolax (bisacodyl)) cholecalciferol (vitamin D3) 25 25 mcg PO DAILY #90 caps 11/03/24 Unknown Rx mcg (1,000 unit) capsule polyethylene glycol 3350 17 See Rx Instructions PO .COMPLEX 11/03/24 Unknown Rx gram/dose oral powder (Miralax) #238 grams Allergy/AdvReac Type Severity Reaction Status Date / Time Penicillins (PCN) Allergy Severe Rash Verified 12/01/24 08:47 hydrocodone Allergy RASH Verified 12/01/24 08:47 piperacillin (From Zosyn) Allergy Hives Verified 12/01/24 08:47 Sulfa (Sulfonamide Allergy UNSURE Verified 12/01/24 08:47 Antibiotics) tazobactam (From Zosyn) Allergy Hives Verified 12/01/24 08:47 meloxicam AdvReac Severe facial Verified 12/01/24 08:47 swellling naproxen AdvReac Nausea Verified 12/01/24 08:47 tramadol AdvReac Nausea Verified 12/01/24 08:47 trazodone AdvReac PT UNSURE Verified 12/01/24 08:47 OF REACTION Family History Sister Bleeding disorder Diabetes Epilepsy Father Heart disease Hypertension Bowel disease Mother Heart disease Hyperlipemia Surgical History History of rectal surgery H/O: section S/P rotator cuff surgery Social History adopted: No household members: none number of children: 3 current occupational status: retired pets and animals: Yes (2) pets and animals: fish sexually active: No Smoking Status: Current every day smoker tobacco type: cigarettes Tobacco: How many years used: 45 alcohol intake: never substance use type: does not use caffeine: Yes (2) Type: coffee what type of physical activity do you participate in: none do you feel safe at home: Yes Review of Systems (Anesthesia) ROS Narrative System reviewed and no additional complaints, except as documented.
--- NOTE | 2024-12-01 09:34 | PCM.HP.BLA ---
History and Physical Date of Admission: 12/01/24 MR#: [id number] Acct: [id number] Name: AURELIO MICHELLE Rep #: [id number] : 1960 Provider: LIV Lee Age/Sex: 64/F Location: 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 Required: No Is patient in pain?: No Allergies hydrocodone Allergy (Verified 10/04/24 12:30) RASHpiperacillin (From Zosyn) Allergy (Verified 10/04/24 12:30) HivesSulfa (Sulfonamide Antibiotics) Allergy (Verified 10/04/24 12:30) UNSUREtazobactam (From Zosyn) Allergy (Verified 10/04/24 12:30) Hivesmeloxicam Adverse Reaction (Severe, Verified 10/04/24 12:30) facial swelllingnaproxen Adverse Reaction (Verified 10/04/24 12:30) Nauseatramadol Adverse Reaction (Verified 10/04/24 12:30) Nauseatrazodone Adverse Reaction (Verified 10/04/24 12:30) PT UNSURE OF REACTION Medications ?Medication ?Instructions ?Recorded ?Confirmed ?Type fluticasone fur. 100 mcg-umeclid 1 ea inhalation QDAY breathing #28 03/05/24 10/04/24 Rx 62.5 mcg-vilant 25 mcg ea inhalat.powder (Trelegy Ellipta) bumetanide 1 mg tablet 1 mg PO QDAY diuresis #90 tabs 03/28/24 10/04/24 Rx cholecalciferol (vitamin D3) 25 25 mcg PO QDAY vitamin #90 caps 03/28/24 10/04/24 Rx mcg (1,000 unit) capsule (Vitamin D3) esomeprazole magnesium 40 mg 40 mg PO QDAY reflux #90 caps 03/28/24 10/04/24 Rx capsule,delayed release montelukast 10 mg tablet 10 mg PO QDAY allergies #90 tabs 03/28/24 10/04/24 Rx rosuvastatin 10 mg tablet 10 mg PO QHS cholesterol #90 tabs 03/28/24 10/04/24 Rx valsartan 80 mg tablet 80 mg PO QDAY blood pressure #90 03/28/24 10/04/24 Rx tabs sennosides 8.6 mg-docusate sodium 1 tab-cap PO QHS bowels #30 tabs 06/28/24 10/04/24 Rx 50 mg tablet semaglutide 1 mg/dose (4 mg/3 mL) 1 mg (0.75 mL) subcut QWEEK 07/20/24 10/04/24 Rx subcutaneous pen injector diabetes #3 mL albuterol sulfate 90 mcg/actuation 2 puff inhalation Q6H PRN 08/16/24 10/04/24 Rx aerosol inhaler shortness of breath or wheezing #8.5 grams hydrocortisone 2.5 % topical cream 1 applic topical BID PRN arm 09/23/24 10/04/24 History hydroxyzine HCl 50 mg tablet 50 mg PO BID anxiety 09/23/24 10/04/24 History semaglutide 0.25 mg or 0.5 mg (2 0.5 mg subcut QWEEK diabetes 09/23/24 10/04/24 History mg/3 mL) subcutaneous pen injector (Ozempic) sennosides 8.6 mg-docusate sodium 1 tab-cap PO QHS constipatin 09/23/24 10/04/24 History 50 mg tablet (Stimulant Laxative Plus) L.acidophil,salivari-Bifido 1 cap PO TID 30 days #90 caps 09/26/24 10/04/24 Rx bifidum-Strep thermoph 175 mg capsule apixaban 5 mg tablet (Eliquis) 5 mg PO BID 30 days #60 tabs 09/26/24 10/04/24 Rx buspirone 10 mg tablet 10 mg PO BID 30 days #60 tabs 09/26/24 10/04/24 Rx metoprolol succinate 25 mg 25 mg PO BID 30 days #60 tabs 09/26/24 10/04/24 Rx tablet,extended release 24 hr ciprofloxacin HCl 500 mg tablet 500 mg PO BID 10 days #20 tabs 10/04/24 10/04/24 Rx metronidazole 500 mg tablet 500 mg PO Q8H 10 days #30 tabs 10/04/24 10/04/24 Rx Have you fallen in the past year?: No PFSH Medical History (Updated 10/04/24 @ 12:27 by Eloisa Jay) Pigmented nevus Abscess of sigmoid colon due to diverticulitis Abscess of pelvis Renal insufficiency A-fib Obesity (BMI 30.0-34.9) Anaphylactic reaction due to adverse effect of correct drug or medicament properly administered, initial encounter Nicotine dependence Groin cyst COPD (chronic obstructive pulmonary disease) Depression Cervical cancer Skin cancer IBS (irritable bowel syndrome) Hyperlipemia Hypertension Diabetes Carpal tunnel syndrome Cataracts, bilateral Arthritis Glaucoma Anal fissure Surgical History History of rectal surgery H/O: section S/P rotator cuff surgery Family History Sister Bleeding disorder Diabetes EpilepsyFather Heart disease Hypertension Bowel diseaseMother Heart disease Hyperlipemia Social History adopted: No household members: none number of children: 3 current occupational status: retired pets and animals: Yes (2) pets and animals: fish sexually active: No Smoking Status: Current every day smoker tobacco type: cigarettes Tobacco: How many years used: 45 alcohol intake: never substance use type: does not use caffeine: Yes (2) Type: coffee what type of physical activity do you participate in: none do you feel safe at home: Yes HPI HPI HPI: Patient is a 64 y/o F I am seeing following her hospitalization on 09/20/24-09/26/24 for perforated sigmoid diverticulitis with abscess. Patient notes intermittent sweats. She states she has been having intermittent nausea, however she is on antibiotics. She denies vomiting. She notes pain in the lower abdomen/pelvic region. She has completed her cipro and has 2 additional doses of Flagyl left. She states she has been on a low fiber diet. She notes tolerating this diet well. She follows up with her PCP tomorrow for new diagnosis of A fib for which she was discharged to home on Eliquis. CT scan of ab/pel obtained on 09/25/24 demonstrated: FINDINGS: Lung bases: Moderate right and small left pleural effusions with adjacent atelectasis. The heart is normal in size. Liver: The liver is normal in size with diffuse hepatic steatosis. The major portal veins are patent. No biliary ductal dilation. Gallbladder: Development of gallbladder wall thickening, pericholecystic fluid and fat stranding, and pericholecystic liver inflammation. Spleen: Normal in size. Pancreas: Unremarkable. Adrenals: Mild left adrenal gland hyperplasia. No adrenal mass. Kidneys: Left midpole renal cysts and additional hypodensities, too small to characterize. No hydronephrosis or nephrolithiasis. Bladder: Decompressed. Reproductive Organs: Slight increased size and rim enhancement of the intrapelvic abscess, now measuring 6.1 x 1.9 cm (series 2, image 95), previously 5.4 x 1.7 cm when measured in a similar fashion. The intrapelvic abscess abuts the anterior superior uterus, with persistent uterine wall stranding and hyperdensity. Bowel: The bowel loops are nondilated. Retained oral contrast material within the small bowel. No intra-abdominal ascites. Unchanged small rim enhancing abscess along the sigmoid colon, measuring 3.5 x 1.4 cm (coronal image 82), previously measuring 3.3 x 1.3 cm when measured in a similar fashion. Unchanged sigmoid diverticulitis. No obvious perforation. Lymph nodes: Prominent mesenteric and retroperitoneal nodes, likely reactive. Vasculature: Moderate mixed plaque of the aortoiliac vessels. Bones: Mild thoracolumbar spondylosis. IMPRESSION: 1. Slight increased size and rim enhancement of the intrapelvic abscess. Abutment of the intrapelvic abscess along the uterus without obvious fistulous connection, however visualization is limited. If clinically indicated, fluoroscopic imaging could be obtained for further evaluation. 2. Stable/slight increased size inform enhancement of the intrapelvic abscess along the sigmoid colon. Surgical consultation recommended. 3. Development of gallbladder wall thickening, pericholecystic fluid and stranding and adjacent liver parenchyma inflammation. Findings are nonspecific and may reflect acalculous cholecystitis. Correlation with patient's symptoms and physical examination recommended. 4. Development of moderate right and small left pleural effusions. 5. Diffuse hepatic steatosis. ROS General General: Yes weight change and fatigue; No appetite, colon cancer, breast cancer or weakness HEENT HEENT: No difficulty swallowing, eye injury, eye surgery, swollen glands or hoarseness Endo Endocrine: Yes diabetes mellitus; No thyroid disease, thyroid cancer, Hair loss, heat intolerance or cold intolerance Skin Skin: No rash or changing moles Musc Musculoskeletal: Yes back problems and arthritis; No rheumatoid arthritis, gout or joint pain Cardio Cardiovascular: Yes atrial fibrillation and high blood pressure; No murmur, pacemaker, heart disease, heart attack, heart stent, palpitations, shortness of breath with exertion or chest pain Psych Psychiatric: Yes depression and anxiety; No hearing voices Resp Respiratory: Yes shortness of breath, No sleep apnea, No cough, Yes COPD, Yes asthma, No emphysema and No wheezing Gastro Gastrointestinal: Yes abdominal pain, Yes nausea or vomiting, Yes diarrhea, No constipation, No blood in stool, Yes acid reflux, Yes hemorrhoids, Yes ulcers, No gallbladder problem and No black,tarry stools Sergey Hematologic: Yes blood thinners, No blood disorders, No bleeding, No anemia and No blood clots Neuro Neurologic: No system reviewed and no additional complaints, except as documented, No as per HPI, No abnormal gait, No abnormal hearing, No abnormal movements, No abnormal speech, No behavioral changes, No burning sensations, No confusion, No convulsions, No disequilibrium, No dizziness, No localized weakness, No frequent falls, No headache(s), No lack of coordination, No loss of vision, No memory loss, No numbness, No other visual disturbances, No radicular pain, No restless legs, No sensory deficit, No syncope, No tingling, No tremor(s), No weakness and No other Exam GI Other: Abdomen- obese, soft, tenderness to palpation of the lower abdomen. Hypoactive bowel sounds. Assessment and Plan Assessment and Plan (1) Abscess of sigmoid colon due to diverticulitis: Status: Acute (2) Abscess of pelvis: Status: Acute Orders: Orders Abdomen/Pelvis WITH Contrast Today K57.20 - Diverticulitis of large intestine with perforation and abscess without bleeding Medications: Changed From ciprofloxacin HCl 500 mg PO BID 6 days 12 tabs 0RF To ciprofloxacin HCl 500 mg PO BID 20 tabs 0RF 10 days From metronidazole 500 mg PO Q8H 6 days 18 tabs 0RF To metronidazole 500 mg PO Q8H 30 tabs 0RF 10 days Plan Patient's symptoms seem to be stable at this time. Recommend continuing on antibiotics for an additional 10 days. Will order a CT scan of the ab/pel with contrast to assess fluid collections. Patient to continue on a low fiber diet. Patient to follow-up after CT scan is completed with Dr. Peña to review results and discuss future colonoscopy. Patient has had the opportunity to ask and have questions answered. I have examined the patient the following changes are noted: Patient reports complete resolution of prior symptoms with no left lower quadrant discomfort. She also denies any history of fevers or chills in recent weeks. Abdominal exam is benign. Patient confirms completion of the prep and output that is now clear. Lastly she confirms that her last use of Eliquis was just over 48 hours ago. Given the above confirmations we will now proceed to endoscopy suite for planned diagnostic colonoscopy following a bout of complicated diverticulitis in September of this year.
[2024-12-01] MEDS: Lactated Ringers 500 ML IV (09:42)
--- NOTE | 2024-12-01 10:24 | PCM.POST.ANE ---
Anesthesia: Postop Eval I Current Vital Signs Temperature: 97.8 F Pulse Rate: 78 Blood Pressure: 130/76 Respiratory Rate: 18 Pulse Ox: 90 Assessment Airway patent: Yes Spontaneous unlabored respirations: Yes nausea: No Vomiting: No Anesthesia Complication: No Fluid Hydration Crystalloid volume administer (ml): 500 Total IV fluid infused: 500 Progress Note Anesthesia document: Postop Eval 1 completed: Yes
--- NOTE | 2024-12-01 10:26 | OP.COLON_ITS ---
Patient Name: Ximena Bhakta Procedure Date: 12/01/2024 9:21 AM Date of : 1960 Age: 64 Procedure: Colonoscopy Indications: Follow-up of diverticulitis Providers: Enrique Peña MD Referring MD: Enrique Peña MD Medicines: See the Anesthesia note for documentation of the administered medications Patient Profile: Refer to note in patient chart for documentation of history and physical. Last Colonoscopy: 3 years ago. Complications: No immediate complications. Estimated blood loss: None. Procedure: Pre-Anesthesia Assessment: - The heart rate, respiratory rate, oxygen saturations, blood pressure, adequacy of pulmonary ventilation, and response to care were monitored throughout the procedure. After I obtained informed consent, the scope was passed under direct vision. Throughout the procedure, the patient's blood pressure, pulse, and oxygen saturations were monitored continuously. The was introduced through the anus and advanced to the cecum, identified by the appendiceal orifice, ileocecal valve and palpation. The colonoscopy was somewhat difficult due to a redundant colon and significant looping. Successful completion of the procedure was aided by changing the patient to a supine position, using manual pressure, withdrawing and reinserting the scope and straightening and shortening the scope to obtain bowel loop reduction. The patient tolerated the procedure fairly well. The quality of the bowel preparation was adequate. Scope In: 9:49:05 AM Scope Withdrawal Time 0 hours 12 minutes 4 seconds Scope Out: 10:15:23 AM Total Procedure Duration Time 0 hours 26 minutes 18 seconds Findings: Skin tags were found on perianal exam. Multiple medium-mouthed diverticula were found in the sigmoid colon. No biopsies or other specimens were collected for this exam. A benign-appearing, intrinsic mild stenosis measuring 3 cm (in length) was found in the sigmoid colon and was traversed. No biopsies or other specimens were collected for this exam. The entire examined colon appeared normal on direct and retroflexion views. Impression: - Perianal skin tags found on perianal exam. - Diverticulosis in the sigmoid colon. No specimens collected. - Stricture in the sigmoid colon. No specimens collected. - The entire examined colon is normal on direct and retroflexion views. Recommendation: - Discharge patient to home (via wheelchair). - High fiber diet today. - Resume Eliquis (apixaban) at prior dose tomorrow. Refer to managing physician for further adjustment of therapy. - Repeat colonoscopy in 5 years for surveillance. - Telephone my office for study results in 1 week. Procedure Code(s): --- Professional --- 95918, Colonoscopy, flexible; diagnostic, including collection of specimen(s) by brushing or washing, when performed (separate procedure) Diagnosis Code(s): --- Professional --- K56.699, Other intestinal obstruction unspecified as to partial versus complete obstruction K64.4, Residual hemorrhoidal skin tags K57.32, Diverticulitis of large intestine without perforation or abscess without bleeding K57.30, Diverticulosis of large intestine without perforation or abscess without bleeding CPT copyright 2021 [employer]. All rights reserved. The codes documented in this report are preliminary and upon senior java software developer review may be revised to meet current compliance requirements. Enrique Peña MD 12/01/2024 10:25:53 AM This report has been signed electronically. Number of Addenda: 0 Note Initiated On: 12/01/2024 9:21 AM
--- NOTE | 2024-12-01 10:26 | OP.PROVAT_ITS ---
12/01/2024 Jaret Fuller Re : Colonoscopy procedure for Ximena Bhakta Dear Dr. Fuller This procedure was performed on November. My impressions and recommendations are as follows: Impressions : - Perianal skin tags found on perianal exam. - Diverticulosis in the sigmoid colon. No specimens collected. - Stricture in the sigmoid colon. No specimens collected. - The entire examined colon is normal on direct and retroflexion views. Recommendations : - Discharge patient to home (via wheelchair). - High fiber diet today. - Resume Eliquis (apixaban) at prior dose tomorrow. Refer to managing physician for further adjustment of therapy. - Repeat colonoscopy in 5 years for surveillance. - Telephone my office for study results in 1 week. My findings are described in the full procedure note, which is enclosed. If I can be of further assistance, please feel free to contact me at Doctor phone number(s): , Work: . Sincerely, Enrique Peña MD 12/01/2024 10:25:53 AM This report has been signed electronically.
--- NOTE | 2024-12-01 13:46 | POSTOPAN2_ITS ---
Anesthesia Postop Eval I Sum Postop Eval Completion status Anesthesia document: Postop Eval 1 completed: Yes Anesthesia Postop Eval I Summary Anesthesia Postop Eval I Summary: Anesthesia Postop Eval I: Assessment Summary Airway patent Yes 12/01/24 10:25 [email or web address] Spontaneous unlabored Yes 12/01/24 10:25 [email or web address] respirations Mental status nausea No 12/01/24 10:25 [email or web address] Vomiting No 12/01/24 10:25 [email or web address] Anesthesia Postop Eval I: Fluid Summary Crystalloid volume administer 500 12/01/24 10:25 [email or web address] (ml) Colloids volume administered ( ml) Blood Product volume administered (ml) Total IV fluid infused 500 12/01/24 10:25 [email or web address] Anesthesia Postop Eval I: Summary Notes Anesthesia Complication No 12/01/24 10:25 [email or web address] Anesthesia Complication Comment: Post-operative progress note Anesthesia: Postop Eval II Evaluation Mental status: Awake and Calm Pain Level: 0 nausea: No Vomiting: No Complications Anesthesia Complication: No
--- NOTE | 2024-12-01 13:46 | PCM.POSTANE2 ---
Anesthesia Postop Eval I Sum Postop Eval Completion status Anesthesia document: Postop Eval 1 completed: Yes Anesthesia Postop Eval I Summary Anesthesia Postop Eval I Summary: Anesthesia Postop Eval I: Assessment Summary Airway patent Yes 12/01/24 10:25 [email or web address] Spontaneous unlabored Yes 12/01/24 10:25 [email or web address] respirations Mental status nausea No 12/01/24 10:25 [email or web address] Vomiting No 12/01/24 10:25 [email or web address] Anesthesia Postop Eval I: Fluid Summary Crystalloid volume administer 500 12/01/24 10:25 [email or web address] (ml) Colloids volume administered ( ml) Blood Product volume administered (ml) Total IV fluid infused 500 12/01/24 10:25 [email or web address] Anesthesia Postop Eval I: Summary Notes Anesthesia Complication No 12/01/24 10:25 [email or web address] Anesthesia Complication Comment: Post-operative progress note Anesthesia: Postop Eval II Evaluation Mental status: Awake and Calm Pain Level: 0 nausea: No Vomiting: No Complications Anesthesia Complication: No
== END 2024-12-01 11:33 | disposition home or self-care (01) ==
LOC: EN 08:25 → AC 08:26
PROVIDERS: PCP Family Medicine; Referring Provider Surgery; Visit Provider Surgery
PROC: 0DJD8ZZ Inspection of Lower Intestinal Tract, Via Natural or Artificial Opening Endoscopic (ICD-10-PCS; CPT 45378; principal; 2024-12-01 09:25)
DX: K56.699 Other intestinal obstruction unspecified as to partial versus complete obstruction (principal); J44.9 Chronic obstructive pulmonary disease, unspecified; E11.9 Type 2 diabetes mellitus without complications; K57.32 Diverticulitis of large intestine without perforation or abscess without bleeding; Z79.01 Long term (current) use of anticoagulants; K64.4 Residual hemorrhoidal skin tags; E78.5 Hyperlipidemia, unspecified; I10 Essential (primary) hypertension; F17.210 Nicotine dependence, cigarettes, uncomplicated; K21.9 Gastro-esophageal reflux disease without esophagitis
CPT/HCPCS: 45378; 82962; J2405

== ENCOUNTER 2025-03-28 10:40 | Emergency (ER) | payer MEDICARE, MEDICAID, SELFPAY ==
[2025-03-28 10:41] VITALS: BP 104/64; PULSE 78; RESP 20; TEMP 36.8; O2SAT 96; BMI 32.1
[2025-03-28 11:23] VITALS: O2SAT 90
--- NOTE | 2025-03-28 11:25 | RAD_ITS ---
PROCEDURE: CHEST PA AND LATERAL 03/28/2025 REASON FOR EXAM: COUGH DYSPNEA TECHNIQUE: Procedure Code: RADCXR Modality: DX Procedure: CHEST PA AND LATERAL COMPARISON: No relevant prior. FINDINGS: Lungs: Lungs clear of pneumonia and congestion. Suspect an element of chronic obstructive lung disease. Pleura: No pleural effusions, thickening, or pneumothorax. Heart: Normal in size and configuration. Mediastinum/Rayne: Unremarkable. Great vessels: Unremarkable. Bones/soft tissues: Cardiac monitoring leads overlie the chest wall. RAD/Chest PA and Lateral IMPRESSION: Suspect mild chronic obstructive lung disease. Otherwise, no active cardiopulmonary disease. Reading Location: [place] [id number]
--- NOTE | 2025-03-28 11:29 | ED.VIS.DYS ---
HPI History of Present Illness Chief Complaint: Shortness of Breath Informant: patient Narrative Narrative: 65-year-old female history of COPD diabetes and A-fib presenting to the emergency room with shortness of breath. Patient states that for about a week she has had an upper respiratory infection. She notes rhinorrhea and sore throat. Small amount of diarrhea. She notes a cough but states it seems more like it is coming from her throat. No significant sputum production. Patient went to urgent care today and was noted to have a pulse ox of 87% so she was referred to emergency. Patient states that she has had subjective fevers. No vomiting or nausea. [facility] Medical History Wears dentures Wears glasses Post-menopausal Anxiety History of steroid therapy Excessive bleeding Back pain Gastroparesis Gastric reflux Smoker Asthma Shortness of breath on exertion History of pain when walking History of echocardiogram Cardiology follow-up encounter A-fib Obesity (BMI 30.0-34.9) Anaphylactic reaction due to adverse effect of correct drug or medicament properly administered, initial encounter Renal insufficiency Abscess of pelvis Abscess of sigmoid colon due to diverticulitis Pigmented nevus Groin cyst Nicotine dependence COPD (chronic obstructive pulmonary disease) Depression Cervical cancer Skin cancer IBS (irritable bowel syndrome) Hyperlipemia Hypertension Diabetes Carpal tunnel syndrome Arthritis Glaucoma Anal fissure Home Medications ?Medication ?Instructions ?Recorded ?Last Taken ?Type fluticasone fur. 100 mcg-umeclid 1 ea inhalation QDAY breathing #28 03/05/24 Unknown Rx 62.5 mcg-vilant 25 mcg ea inhalat.powder (Trelegy Ellipta) albuterol sulfate 90 mcg/actuation 2 puff inhalation Q6H PRN 08/16/24 Unknown Rx aerosol inhaler shortness of breath or wheezing #8.5 grams hydrocortisone 2.5 % topical cream 1 applic topical BID PRN arm 09/23/24 Unknown History bisacodyl 5 mg tablet,delayed 20 mg (4 x 5 mg) PO ONCE #4 tabs 11/03/24 Unknown Rx release (Dulcolax (bisacodyl)) polyethylene glycol 3350 17 See Rx Instructions PO .COMPLEX 11/03/24 Unknown Rx gram/dose oral powder (Miralax) #238 grams L.acidophil,salivari-Bifido 1 cap PO TID 30 days #90 caps 01/17/25 Unknown Rx bifidum-Strep thermoph 175 mg capsule sennosides 8.6 mg-docusate sodium 1 tab-cap PO QHS constipatin #90 01/25/25 Unknown Rx 50 mg tablet (Stimulant Laxative tabs Plus) rosuvastatin 10 mg tablet 10 mg PO QHS for cholesterol #90 02/08/25 Unknown Rx TABLETS bumetanide 1 mg tablet 1 mg PO QDAY diuresis #90 tabs 03/22/25 Unknown Rx buspirone 10 mg tablet 10 mg PO BID 30 days #60 tabs 03/22/25 Unknown Rx cholecalciferol (vitamin D3) 25 25 mcg PO DAILY #90 caps 03/22/25 Unknown Rx mcg (1,000 unit) capsule esomeprazole magnesium 40 mg 40 mg PO QDAY reflux #90 caps 03/22/25 Unknown Rx capsule,delayed release hydroxyzine HCl 50 mg tablet 50 mg PO BID anxiety #180 TABLETS 03/22/25 Unknown Rx indomethacin 25 mg capsule 25 mg PO BID #60 caps 03/22/25 Unknown Rx montelukast 10 mg tablet 10 mg PO QDAY allergies #90 tabs 03/22/25 Unknown Rx semaglutide 2 mg/dose (8 mg/3 mL) 2 mg (0.75 mL) subcut QWEEK #3 mL 03/22/25 Unknown Rx subcutaneous pen injector valsartan 80 mg tablet 80 mg PO QDAY blood pressure #90 03/22/25 Unknown Rx tabs albuterol sulfate 2.5 mg/3 mL 2.5 mg (3 mL) inhalation Q4H PRN 03/28/25 Unknown Rx (0.083 %) solution for nebulization #25 vials doxycycline monohydrate 100 mg 100 mg PO BID #14 CAPSULES 03/28/25 Unknown Rx capsule prednisone 20 mg tablet 60 mg (3 x 20 mg) PO DAILY #15 03/28/25 Unknown Rx TABLETS Allergy/AdvReac Type Severity Reaction Status Date / Time Penicillins (PCN) Allergy Severe Rash Verified 03/28/25 10:44 hydrocodone Allergy RASH Verified 03/28/25 10:44 piperacillin (From Zosyn) Allergy Hives Verified 03/28/25 10:44 Sulfa (Sulfonamide Allergy UNSURE Verified 03/28/25 10:44 Antibiotics) tazobactam (From Zosyn) Allergy Hives Verified 03/28/25 10:44 meloxicam AdvReac Severe facial Verified 03/28/25 10:44 swellling naproxen AdvReac Nausea Verified 03/28/25 10:44 tramadol AdvReac Nausea Verified 03/28/25 10:44 trazodone AdvReac PT UNSURE Verified 03/28/25 10:44 OF REACTION Family History Sister Bleeding disorder Diabetes Epilepsy Father Heart disease Hypertension Bowel disease Mother Heart disease Hyperlipemia Surgical History History of rectal surgery H/O: section S/P rotator cuff surgery Social History adopted: No household members: none number of children: 3 current occupational status: retired pets and animals: Yes (2) pets and animals: fish sexually active: No Smoking Status: Current every day smoker tobacco type: cigarettes Tobacco: How many years used: 45 alcohol intake: never substance use type: does not use caffeine: Yes (2) Type: coffee what type of physical activity do you participate in: none do you feel safe at home: Yes ROS ROS ED Constitutional Constitutional ED: Reports chills, fever(s), sweats and weight loss Eyes Eyes: Denies change in vision or diplopia ENT ENT ED: Reports rhinorrhea and sore throat; Denies ear pain Cardiovascular Cardiovascular: Denies chest pain, orthopnea, palpitations or racing heartbeat Respiratory/Chest Respiratory/Chest: Reports cough, dyspnea and dyspnea on exertion; Denies orthopnea Gastrointestinal Gastrointestinal: Reports diarrhea; Denies abdominal pain, nausea or vomiting Genitourinary Genitourinary ED: Denies dysuria, hematuria or urinary frequency Musculoskeletal Musculoskeletal: Denies arthralgias or myalgias Integumentary Denies abscess or rash Neurologic Neurologic: Denies headache(s) or weakness Psychiatric Psychiatric: Denies anxiety, depression, suicidal ideation or suicidal thoughts Endocrine Endocrinology: Denies polydipsia, polyphagia or polyuria Allergic/Immunologic Allergic/Immunologic ED: Denies mouth swelling, tongue swelling or urticaria EXAM Physical Exam Const Vital Signs: 03/28/25 10:41 03/28/25 11:23 03/28/25 11:39 Temperature 98.3 F Temperature Source Oral Pulse Rate 78 68 Respiratory Rate 20 H 16 Respiratory Effort Normal Short of Breath Respiratory Depth Normal Respiratory Pattern Normal Blood Pressure 104/64 Blood Pressure Mean 77 Pulse Ox 96 Oxygen Delivery Method Room Air Room Air 03/28/25 12:40 03/28/25 12:49 Temperature 98.2 F Temperature Source Pulse Rate 78 78 Respiratory Rate 16 Respiratory Effort Respiratory Depth Respiratory Pattern Blood Pressure 138/70 H 138/70 H Blood Pressure Mean 92 92 Pulse Ox 93 93 Oxygen Delivery Method Positive well nourished and well developed General Appearance ED: well developed and NAD HEENT Reports normocephalic, head/scalp atraumatic and moist mucous membranes HEENT Narrative: Mild nasal congestion Eyes PERRL and EOMs intact bilaterally Neck no lymphadenopathy, supple and no JVD Resp Resp Narrative: Patient has slight tachypnea. I hear wheezing on the left anterior chest. Cardio regular rate, regular rhythm and no murmurs GI normal to inspection, nondistended, normoactive bowel sounds and non-tender Palpation: soft Back/Spine no CVA tenderness and normal ROM Extremity normal to inspection General Extremety ED: Negative for edema General Extremity: Negative for edema Neuro oriented x3 and CN's II-XII intact bilaterally Sensorium / Orientation: alert Motor Exam: strength 5/5 throughout Psych mental status grossly normal Mood & Affect: Negative for depressed or tearful Skin no rashes or lesions noted and no wounds MDM MDM MDM Narrative Medical decision making narrative: Differential diagnosis includes viral syndrome COPD exacerbation pneumonia pleural effusion congestive heart failure Patient received a breathing treatment and states that her breathing is significantly better. She is no longer tachypneic. Repeat auscultation shows faint wheezing now bilaterally. She is able to ambulate without any hypoxia. My independent interpretation of the chest x-ray is no pneumonia or effusion or evidence of volume overload. Patient has a nebulizer machine but needs solution which I will write for albuterol. I will place her on prednisone as well as a short course of doxycycline. She understands return instructions History & Record Review Discussion w/independent historian: Patient and Family Radiography Diagnostic Testing: Clinical Impression(s) from Imaging Studies Chest X-Ray 03/28/25 11:25 IMPRESSION: Suspect mild chronic obstructive lung disease. Otherwise, no active cardiopulmonary disease. Reading Location: [place] [id number] Discharge Plan Triage Chief Complaint: Shortness of Breath ED Provider: Keith Menard Dx/Rx/DC Orders Clinical Impression: Viral syndrome, COPD with exacerbation Instructions: ED COPD Flare Prescriptions: New albuterol sulfate 2.5 mg /3 mL (0.083 %) solution for nebulization 2.5 mg inhalation Q4H PRN Qty: 25 0RF Rx Instructions: Use q4 hours and PRN for wheezing prednisone 20 mg tablet 60 mg PO DAILY Qty: 15 0RF doxycycline monohydrate 100 mg capsule 100 mg PO BID Qty: 14 0RF No Action sennosides-docusate sodium [Stimulant Laxative Plus] 8.6-50 mg tablet 1 tab-cap PO QHS Qty: 90 1RF hydrocortisone 2.5 % cream 1 applic topical BID PRN (Reason: arm) Trelegy Ellipta 100-62.5-25 mcg blister with device 1 ea inhalation QDAY Qty: 28 1RF albuterol sulfate 90 mcg/actuation HFA aerosol inhaler 2 puff inhalation Q6H PRN (Reason: shortness of breath or wheezing) Qty: 8.5 1RF bisacodyl [Dulcolax (bisacodyl)] 5 mg tablet,delayed release (DR/EC) 20 mg PO ONCE Qty: 4 0RF Rx Instructions: Take 4 tablets by mouth at 2:00 pm polyethylene glycol 3350 [Miralax] 17 gram/dose powder See Rx Instructions PO .COMPLEX Qty: 238 0RF Rx Instructions: Mix with gatorade and start colonoscopy mixture at 4 pm L.acidoph,saliva-B.bif-S.therm 175 mg capsule 1 cap PO TID 30 Days Qty: 90 2RF rosuvastatin 10 mg tablet 10 mg PO QHS Qty: 90 0RF bumetanide 1 mg tablet 1 mg PO QDAY Qty: 90 1RF buspirone 10 mg tablet 10 mg PO BID 30 Days Qty: 60 2RF cholecalciferol (vitamin D3) 25 mcg (1,000 unit) capsule 25 mcg PO DAILY Qty: 90 1RF esomeprazole magnesium 40 mg capsule,delayed release(DR/EC) 40 mg PO QDAY Qty: 90 1RF hydroxyzine HCl 50 mg tablet 50 mg PO BID Qty: 180 1RF indomethacin 25 mg capsule 25 mg PO BID Qty: 60 1RF Rx Instructions: administer with food or milk montelukast 10 mg tablet 10 mg PO QDAY Qty: 90 1RF semaglutide 2 mg/dose (8 mg/3 mL) pen injector 2 mg subcut QWEEK Qty: 3 2RF valsartan 80 mg tablet 80 mg PO QDAY Qty: 90 1RF Primary Care Provider: Jaret Fuller Referrals: Jaret Fuller DO [Primary Care Provider, Internal Medicine] - As Needed Print Language: [place] Disposition Disposition: Home, Self Care Discharge Date/Time: 03/28/25 13:00
[2025-03-28 11:39] VITALS: PULSE 68; RESP 16
[2025-03-28 11:59] VITALS: O2SAT 93
[2025-03-28 12:40] VITALS: BP 138/70; PULSE 78; O2SAT 93
[2025-03-28 12:49] VITALS: BP 138/70; PULSE 78; RESP 16; TEMP 36.8; O2SAT 93
== END 2025-03-28 13:00 | disposition home or self-care (01) ==
PROVIDERS: Emergency Provider Emergency Medicine; PCP Family Medicine; Visit Provider Emergency Medicine
DX: J44.1 Chronic obstructive pulmonary disease with (acute) exacerbation (principal); E11.9 Type 2 diabetes mellitus without complications; F17.210 Nicotine dependence, cigarettes, uncomplicated; R19.7 Diarrhea, unspecified; B34.9 Viral infection, unspecified; E78.5 Hyperlipidemia, unspecified; I10 Essential (primary) hypertension; R05.9 Cough, unspecified
CPT/HCPCS: 71046; 94640; 99282